=== PATIENT | female | born 1965 | race Caucasian/White ===

== ENCOUNTER 2021-10-07 10:12 | Outpatient (CLI) | payer MEDICARE, MEDICAID, SELFPAY ==
--- NOTE | 2021-10-07 16:46 | WPDPFTINT ---
PFT Procedure Performed PFT Procedure Performed Spirometry with Pre/Post Bronchodilator Plethysmography (Lung Vol) Diffusing Cap (DLCO) Flow Vol Loop PFT Interpretation This is a pulmonary function test with pre and post-bronchodilator spirometry, plethysmography and diffusing capacity. The test was performed and results interpreted in accordance with the 2019 and 2005 ATS/ERS Task Force guidelines respectively using the Global Lung Function Initiative-2012 reference equations. Patient demonstrated good effort and cooperation. Reproducibility criteria were met. The quality of the pre bronchodilator spirometry maneuver was Grade B and post bronchodilator spirometry maneuver was Grade A. Findings: Spirometry: There is decreased maximal expiratory airflow at all lung volumes with a concave expiratory flow tracing. The contour the inspiratory flow tracing is normal. The pre bronchodilator FVC is 3.48 L, 106% predicted. The pre bronchodilator FEV1 is 1.42 L, 55% predicted. The pre bronchodilator FEV1: FVC ratio is 41%. The post bronchodilator FVC is 3.43 L, representing a 1% decrease. The post bronchodilator FEV1 is 1.55 L, representing a 9% increase. The post bronchodilator FEV1: FVC ratio is 45%. Plethysmography: The total lung capacity 6.55 L, 129% predicted. The functional residual capacity is 4.16 L, 145% predicted. The residual volume is 3.07 L, 159% predicted. Diffusing capacity: The diffusing capacity unadjusted for hemoglobin and carboxyhemoglobin is 15.8, 72% predicted. The diffusing capacity adjusted for alveolar volume is 3.41, 76% predicted. Impression: There is a moderately severe obstructive abnormality without significant improvement after inhaling a single dose of albuterol. The increase in residual volume is consistent with air trapping from an obstructive abnormality. Hyperinflation is present is demonstrated by the increase in functional residual capacity and total lung capacity and is consistent with an obstructive abnormality. The diffusing capacity is normal. There are no prior studies for comparison
== END 2021-10-07 10:13 | disposition home or self-care (01) ==
LOC: ANHPFT 10:15
PROVIDERS: Visit Provider Internal Medicine Pulmonary Disease
DX: J44.9 Chronic obstructive pulmonary disease, unspecified (principal)
CPT/HCPCS: 94060; 94726; 94729

== ENCOUNTER 2022-02-14 10:54 | Outpatient (CLI) | payer MEDICARE, MEDICAID, SELFPAY ==
--- NOTE | ~2022-02-14 | CT_ITS ---
EXAMINATION: CT lung screening DATE: 02/14/2022 11:13 INDICATION: Personal history of tobacco dependence TECHNIQUE: Computed tomography (CT) of the chest was performed without intravenous contrast. The dose -length product was 107.12 mGy-cm. Automated exposure control and iterative reconstruction technique were employed. COMPARISON: None FINDINGS: Heart size is normal. No significant pleural or pericardial effusion. No thoracic lymphaden opathy. The upper abdomen is unremarkable. No endobronchial lesions. There are reticulonodular densit ies in the right middle lobe, possibly infectious or inflammatory. There is a 2-3 mm groundglass nodu le in the left upper lobe. Mild emphysema. No pneumothorax. No endobronchial lesions. Moderate thorac ic spondylosis. No focal lytic or blastic lesions. IMPRESSION: 1. Lung-RADS category 2: Benign appearance or behavior. Continue annual screening with noncontrast lo w-dose chest CT in 12 months. Reviewed, dictated and finalized at location A. IMPRESSION: 1. Lung-RADS category 2: Benign appearance or behavior. Continue annual screeni ng with noncontrast low-dose chest CT in 12 months.
== END 2022-02-14 10:55 | disposition home or self-care (01) ==
PROVIDERS: Visit Provider Internal Medicine Pulmonary Disease
DX: Z12.2 Encounter for screening for malignant neoplasm of respiratory organs (principal); Z87.891 Personal history of nicotine dependence
CPT/HCPCS: 71271

== ENCOUNTER 2025-03-28 12:50 | Inpatient (IN) | payer MEDICARE, SELFPAY ==
--- OUTSIDE RECORDS SUMMARY | 2025-02-25 09:30 | XMS_ITS | Encounter Summary ---
Author Organization [facility] Address [address] [place] [address] Care Team Providers Care Inventory And Pricing Associate Name Role Phone Elyse Pinto SANITATION WORKER CLEANING EQUIPMENT-EVENT PLANNING INTERN Primary Care Provide r Encounter Details Date Type Department Care Team (Late st Contact Info) Description 02/25/2025 9:30 AM CDT Hospital Encounter [facility] Cancer Care - Radiation Oncology [address] [place] [address] Jackson Mcghee MD [address] [place], [place] [id number] Social History Tobacco Use Types Packs/Day Years Used Date Smoking Tobacco: Former Cigarettes Q uit: 2016 Smokeless Tobacco: Never Alcohol Use Standard Drinks/Week Comments Not Currently 0 (1 standard drink = 0.6 oz pur e alcohol) AUDIT-C Answer Date Recorded Frequency of Alcohol Consumption Not on file 12/05/2024 Q2: How many drinks containi ng alcohol do you have on a typical day when you are drinking? Patient does not drink Q3: How often do you have si x or more drinks on one occasion? Never 12/05/2024 Overall Financial Resource Strain (CARDIA) Lindae r Date Recorded How hard is it for you to pa y for the very basics like food, housing, medical care, and heating? Somewhat hard 12/05/2024 PHQ-2 Answer Date Recorded Patient Health Questionnaire-2 Score 0 03/18/2025 [facility] of Occupat ional Health - Occupational Stress Questionnaire Answer Date Recorded Do you feel stress - tense, restless, nervous, or anxious, or unable to sleep at night because your mind is troubled all the time - these days? Only a little 12/05/2024 Hunger Vital Sign Answer Date Recorded Within the past 12 months, y ou worried that your food would run out before you got the money to buy more. Never true 12/06/19 25 Within the past 12 months, t he food you bought just didn't last and you didn't have money to get more. Never true 12/05/2024 PRAPARE - Transportation Answer Date Re corded In the past 12 months, has l ack of transportation kept you from medical appointments or from getting medications? No 11/08 In the past 12 months, has l ack of transportation kept you from meetings, work, or from getting things needed for daily living? No 12/05/2024 Housing Stability Vital Sign Answer Wesly e Recorded In the last 12 months, was t here a time when you were not able to pay the mortgage or rent on time? No 12/05/2024 In the past 12 months, how m any times have you moved where you were living? 1 12/05/2024 At any time in the past 12 m [facility], were you homeless or living in a jail (including now)? No 12/05/2024 Comments No Sex and Gender Information Value Date Recorded Sex Assigned at Not on file Legal Sex Female 11:39 AM CDT Gender Identity Not on file Sexual Orientation Not on file documented as of this encounter Functional Status * Is person deaf or have serious hearing difficulty? Answer Date of Assessment Author No 12/05/2024 5:31 PM CDT Vicky Souza LPN * Is person blind or have serious difficulty seeing? Answer Date of Assessment Author No 12/05/2024 5:31 PM CDT Vicky Souza LPN * Does person have serious difficulty walking/climbing stairs? Answer Date of Assessment Author No 12/05/2024 5:31 PM CDT Vicky Souza LPN * Does person have difficulty dressing/bathing? Answer Date of Assessment Author No 12/05/2024 5:31 PM CDT Vicky Souza LPN * Does person have difficulty doing errands alone? Answer Date of Assessment Author No 12/05/2024 5:31 PM CDT Vicky Souza LPN * Over the past 2 weeks, how often have you been bothered by any of the following problems? Question Answer Date of Assessment Author Little interest or pleasure in doing things Not at all 03/18/2025 12:28 PM CDT Romelia Pineda RN Feeling down, depressed, or hopeless Not at all 03/18/2025 12:28 PM CDT Romelia Pineda RN Patient Health Questionnaire -2 Score 0 03/18/2025 12:28 PM CDT Romelia Pineda RN documented as of this encounter Mental Status * Does person have difficulty concentrating/remembering/making decisions? Answer Entry Date Author No 12/05/2024 5:31 PM CDT Vicky Souza LPN documented in this encounter Plan of Treatment Upcoming Encounters Date Type Department Care Team (Late st Contact Info) Description 03/30/2025 9:30 AM CDT Appointment [facility] - PET Scan [address] [place] [address] [address] [place] [address] Earlene Mckeon MD [address] [place], [place] [phone] 04/02/2025 9:30 AM CDT Clinical Support [facility] - CRM DYNAMICS DEVELOPER [address] [facility] [address] [place] [phone] [place] [address] [place] [address] 04/02/2025 10:20 AM CDT Appointment [facility] [address] [facility] [address] [place] [address] Earlene Mckeon MD [address] [address] documented as of this encounter Visit Diagnoses Not on filedocumented in this encounter Care Teams Inventory And Pricing Associate Relationship Specialty Start Date End Date Elyse Pinto APRN-KHOA [address] [id number] PCP - General Nurse Practitioner 04/17/24 documented as of this encounter
--- OUTSIDE RECORDS SUMMARY | 2025-02-25 09:30 | XMS_ITS | Encounter Summary ---
Author Organization [facility] Address [address] [place] [address] Care Team Providers Care High School Music Teacher Name Role Phone Elyse Pinto VETERINARIAN EPIDEMIOLOGIST-LONG TERM Primary Care Provide r Encounter Details Date Type Department Care Team (Late st Contact Info) Description 02/25/2025 9:30 AM CDT Hospital Encounter [facility] Cancer Care - Radiation Oncology [address] [place] [address] Jackson Mcghee MD [address] [place], [place] [id number] Social History Tobacco Use Types Packs/Day Years [...] Recorded Patient Health Questionnaire-2 Score 0 03/18/2025 [facility] [place] of Occupat ional Health - Occupational Stress [...] any time in the past 12 m [facility], were you homeless or living in a retirement (including now)? No 12/05/2024 Comments No Sex [...] Info) Description 03/30/2025 9:30 AM CDT Appointment [facility] [place] [place] - PET Scan [address] [place] [address] [address] [place] [address] Earlene Mckeon MD [address] [place], [place] [id number] 04/02/2025 9:30 AM CDT Clinical Support [facility] - COUNTER PROFESSIONAL [address] [facility] [address] [place] [phone] [place] [address] [place] [address] 04/02/2025 10:20 AM CDT Appointment [facility] [address] [facility] [address] [place] [address] Earlene Mckeon MD [address] [address] documented as of this encounter Visit Diagnoses Not on filedocumented in this encounter Care Teams High School Music Teacher Relationship Specialty Start Date End Date Elyse Pinto APRN-KHOA [address] [id number] PCP - General Nurse Practitioner 04/17/24 documented as of this encounter
[2025-03-28] VITALS (46 sets, daily range): BP systolic 86–123; BP diastolic 49–91; PULSE 97–139; RESP 17–46; TEMP 36.7; O2SAT 92–100
--- NOTE | ~2025-03-28 | CT_ITS ---
CTA NECK, CTA HEAD Clinical History: CVA Comparison: Noncontrast CT head today TECHNIQUE: Helical images thoracic inlet to vertex 100 mL Omnipaque 350 Coronal, sagittal reformats. Multi planar MIPS CT images acquired with automatic exposure control for dose reduction DLP: 910 mGy-cm Findings: NASCET Criteria utilized CTA NECK Great vessel origins: No stenosis. CCAs: No stenosis. Cervical ICAs: No stenosis. Mild bulb calcification. Vertebral Arteries: Patent. Left side arises directly from arch. Lung Apices: Clear. Thyroid: Unremarkable. Nodes: No enlarged nodes. Bones: Lytic lesion C2, C5. Lytic lesion right scapula with large soft tissue component. CTA HEAD: Aneurysms: None. Intracranial ICAs: Cavernous segments calcifications but patent without definite stenosis. ACAs and their distal branches: Patent, unremarkable. A-Comm: Identified. Patent, unremarkable. MCAs and their distal branches: Patent, unremarkable. Basilar artery: Patent, unremarkable. public health dentist and their distal branches: Patent, unremarkable. P-Comms: Left side present. IMPRESSION: CTA NECK: 1. No ICA stenosis or other acute arterial abnormality. 2. Lytic bony metastatic disease C2, C5. 3. Lytic bony metastatic disease right scapula with large associated soft tissue component. CTA HEAD: 1. No large vessel arterial occlusive disease or other acute arterial abnormality. Reviewed, dictated and finalized at location R. IMPRESSION: CTA NECK: 1. No ICA stenosis or other acute arterial abnormality. 2. Lytic bony metastatic disease C2, C5. 3. Lytic bony metastatic disease right scapula with large associated soft tiss ue component. CTA HEAD: 1. No large vessel arterial occlusive disease or other acute arterial abnormal ity.
--- NOTE | ~2025-03-28 | MR_ITS ---
EXAMINATION: MR brain/brain stem wo con DATE: 04/26/2025 12:40 INDICATION: Headache. TECHNIQUE: Magnetic resonance imaging (MRI) of the brain and brainstem was performed without intravenous contrast. COMPARISON: Brain MRI 03/30/2025, head CT 04/23/2025 FINDINGS: There are scattered areas of nonspecific increased T2-weighted signal intensity in the cerebral white matter and peg. There is no intracranial hemorrhage, acute infarction, or abnormal intracranial mass lesion. The ventricles are normal in size. There is mild mucosal thickening in the paranasal sinuses. The orbits are normal. There is a trace right mastoid effusion. IMPRESSION: 1. Stable mild nonspecific cerebral white matter disease and pontine disease, which likely represents chronic small vessel ischemic disease. Reviewed, dictated and finalized at location E. IMPRESSION: 1. Stable mild nonspecific cerebral white matter disease and pontine disease, w hich likely represents chronic small vessel ischemic disease.
--- NOTE | ~2025-03-28 | XR_ITS ---
Examination: XR chest 1V portable Clinical History: HTN Comparison: X-ray 03/28/2025 Technique: Portable AP Findings: Right chest Mediport. Heart size normal. Developing interstitial markings right lung. No acute bony abnormality. IMPRESSION: 1. Developing interstitial pulmonary edema and/or pneumonitis right lung. 2. Early airspace disease lung base not excluded. Reviewed, dictated and finalized at location R.
--- NOTE | ~2025-03-28 | MR_ITS ---
EXAMINATION: MR brain/brain stem wo/w con DATE: 03/30/2025 15:18 INDICATION: Stroke TECHNIQUE: Magnetic resonance imaging (MRI) of the brain and brainstem was performed without and with 12 mL Multihance intravenous contrast. Sequences included sagittal and axial T1-weighted SE, axial diffusion-weighted FS SE, axial T2*-weighted GRE, axial T2-weighted FLAIR, and axial T2-weighted FSE. Postcontrast axial and coronal T1-weighted SE was obtained. Apparent diffusion coefficient (ADC) maps were created. COMPARISON: Head CT and CT angiogram dated 03/28/2025 FINDINGS: There are no areas of restricted diffusion to suggest acute infarction. No intracranial hemorrhage or abnormal intracranial mass lesion. There are scattered areas of nonspecific increased T2-weighted signal intensity in the cerebral white matter, predominantly involving the deep and periventricular whi te matter. There are no intraparenchymal signal abnormalities seen on the other pulse sequences. The ventricles are symmetric and normal in size. There are no abnormal extra-axial fluid collections. Flow voids are seen in the cerebral arteries on the T2-weighted sequences consistent with their expected patency. Visualized orbits and soft tissues are unremarkable. There are no areas of abnormal enhancement on the post contrast images. IMPRESSION: 1. Scattered ossific white matter T2 hyperintensity consistent with chronic small vessel ischemic disease. No acute intracranial process. Reviewed, dictated and finalized at location A. IMPRESSION: 1. Scattered ossific white matter T2 hyperintensity consistent with chronic sma ll vessel ischemic disease. No acute intracranial process.
--- NOTE | ~2025-03-28 | CT_ITS ---
EXAMINATION: CT brain wo con, 03/28/2025 17:20 CDT HISTORY: WEAKNESS, CONFUSION COMPARISON: No comparisons available. Technique: Axial images obtained of the brain without contrast. One or more of the following dose reduction techniques were used: automated exposure control, adjustment of the mA and/or kV according to patient size, use of iterative reconstruction technique. Findings: Age-indeterminate focus of ischemia noted in the left posterior frontal subcortical white matter, no acute hemorrhage. No midline shift or mass effect. No extra-axial fluid collections. Mastoid air cells unremarkable. Sinuses and orbits unremarkable. No acute fracture. No significant facial or scalp soft tissue swelling evident. No radiopaque foreign body is seen. Impression: Age-indeterminate focus of left frontal subcortical ischemia. No hemorrhage. MRI recommended Reviewed, dictated and finalized at location A. Impression: Age-indeterminate focus of left frontal subcortical ischemia. No hemorrhage. MR I recommended
--- NOTE | ~2025-03-28 | XR_ITS ---
Examination: XR chest 1V portable Clinical History: no blood return check for placement Comparison: 04/11/2025 Technique: Portable AP Findings: Right chest Mediport. Heart size normal. Lungs clear. No acute bony abnormality. IMPRESSION: 1. No acute cardiopulmonary findings given portable technique. 2. Right Mediport unchanged in position. Reviewed, dictated and finalized at location R.
--- NOTE | ~2025-03-28 | XR_ITS ---
EXAMINATION: XR chest 1V portable COMPARISON: No comparisons available. HISTORY: fever FINDINGS: The lungs are clear, no effusion. No pneumothorax. Heart is normal size. Mediastinal and hilar contours are within normal limits. Bony thorax no acute abnormality. Miscellaneous: None Impression: No acute cardiopulmonary abnormality. Reviewed, dictated and finalized at location P. Impression: No acute cardiopulmonary abnormality.
--- NOTE | ~2025-03-28 | XR_ITS ---
EXAMINATION: XR shoulder RT min 2V, 04/11/2025 15:15 CDT HISTORY: pain COMPARISON: No comparisons available. Findings: No acute fracture or malalignment. No significant degenerative changes. Soft tissues unremarkable. Impression: No acute fracture or malalignment. Reviewed, dictated and finalized at location P. Impression: No acute fracture or malalignment.
--- NOTE | ~2025-03-28 | CT_ITS ---
COMPARISON: [None.] TECHNIQUE: Axial images of the thorax, abdomen and pelvis were obtained without infusion of intravenous contrast, which limits evaluation. FINDINGS: THORAX: [The lungs are clear. There is a 5 mm pulmonary nodule within the superior segment of the left lower lobe measured on axial image 53 5.8 mm pulmonary nodule in the posterior left lower lobe measured on axial image 58. There is a 8 x 7 mm pulmonary nodule in the anterior medial right upper lobe measured on axial image 56 there is a 5 mm pulmonary nodule within the right middle lobe measuring on axial image 66. There is a 12 x 9 mm pulmonary nodule at the right lung base measured on axial image 69. There is atelectasis of the right lower lobes. Small right pleural effusion are noted. There is a large precarinal lymph node measuring 16 mm. Small pericardial effusion is noted. Heart size is normal. ABDOMEN AND PELVIS: [The liver parenchyma is multiple liver masses are noted concerning for malignancy. Largest measures 6.6 cm.[The gallbladder is normal.] [The pancreas is unremarkable. There is no peripancreatic induration.] [The spleen is normal in size. The adrenal glands are unremarkable.] [The kidneys are unremarkable. There is no hydronephrosis.] [The stomach and bowel loops are unremarkable.] The bladder is normal. [ ] BONES: [The bones are intact.] IMPRESSION: 1. [Multiple pulmonary nodules are noted in the lungs bilaterally measuring up to 12 mm. There is a enlarged precarinal lymph node measuring 16 mm. This may represent metastases. Multiple liver masses are noted suggestive of malignancy. Reviewed, dictated and finalized at location S.
--- NOTE | ~2025-03-28 | CT_ITS ---
EXAMINATION: CT brain wo negra, 04/23/2025 13:58 CDT HISTORY: ams COMPARISON: No comparisons available. Technique: Axial images obtained of the brain without contrast. One or more of the following dose reduction techniques were used: automated exposure control, adjustment of the mA and/or kV according to patient size, use of iterative reconstruction technique. Findings: No acute infarct or parenchymal hemorrhage. No abnormal mass or mass effect. No midline shift. No extra-axial fluid collections. No hydrocephalus. Mastoid air cells unremarkable. Sinuses and orbits unremarkable. No acute fracture. No significant facial or scalp soft tissue swelling evident. No radiopaque foreign body is seen. Impression: 1.No acute intracranial abnormality. Reviewed, dictated and finalized at location P. Impression: 1.No acute intracranial abnormality.
--- NOTE | ~2025-03-28 | XR_ITS ---
XR chest 2V HOSTORY: leukocytosis INCREASED WEAKNESS COMPARISON:[ None] FINDINGS: Frontal and lateral views of the chest were obtained multifocal airspace opacities are noted bilaterally.. [ ] [The heart size is normal in size.] [Pulmonary vasculature is unremarkable.] [ ] [Osseous structures are intact.] IMPRESSION: Multifocal airspace opacities are noted bilaterally. Reviewed, dictated and finalized at location S.
--- NOTE | ~2025-03-28 | XR_ITS ---
EXAMINATION: XR chest 1V portable COMPARISON: No comparisons available. HISTORY: pneumonia FINDINGS: Scattered bilateral small infiltrates. No pneumothorax. Heart is normal size. Mediastinal and hilar contours are within normal limits. Bony thorax no acute abnormality. Miscellaneous: Right central line in the SVC, right PICC line in the SVC. Impression: Bilateral pneumonia. The findings appear slightly progressed compared to the previous study Reviewed, dictated and finalized at location P. Impression: Bilateral pneumonia. The findings appear slightly progressed compared to the pr evious study
--- NOTE | ~2025-03-28 | XR_ITS ---
XR chest 1V portable INDICATION:SOB . REFERENCE: None FINDINGS: A single AP of the chest demonstrates normal heart size. Right Port-A-Cath terminates in the right atrium. There is small right pleural effusion with associated atelectasis. There is interstitial groundglass opacities bilaterally. There is no evidence of pneumothorax or pleural effusion. IMPRESSION: Syncytial groundglass opacity bilaterally with right pleural effusion suggestive of pulmonary edema. Reviewed, dictated and finalized at location S. IMPRESSION: Syncytial groundglass opacity bilaterally with right pleural effusion suggestiv e of pulmonary edema.
--- NOTE | ~2025-03-28 | XR_ITS ---
EXAMINATION: XR chest 1V portable COMPARISON: No comparisons available. HISTORY: Worsening leukocytosis with lethargy and cough. FINDINGS: Mild pulmonary venous congestion. Small basilar infiltrates and right pleural effusion. No pneumothorax. Mild cardiomegaly. Mediastinal and hilar contours are within normal limits. Bony thorax no acute abnormality. Miscellaneous: Right Mediport in the SVC. Impression: CHF. Superimposed bronchopneumonia. The findings appear slightly progressed compared to the previous study Reviewed, dictated and finalized at location P. Impression: CHF. Superimposed bronchopneumonia. The findings appear slightly progressed com pared to the previous study
--- NOTE | ~2025-03-28 | XR_ITS ---
EXAMINATION: XR chest 1V portable COMPARISON: No comparisons available. HISTORY: WEAKNESS FINDINGS: The lungs are clear, no effusion. No pneumothorax. Heart is normal size. Mediastinal and hilar contours are within normal limits. Bony thorax no acute abnormality. Miscellaneous: Right Mediport terminates in the SVC Impression: No acute cardiopulmonary abnormality. Reviewed, dictated and finalized at location A. Impression: No acute cardiopulmonary abnormality.
--- NOTE | ~2025-03-28 | US_ITS ---
EXAMINATION:US venous doppler LE BI INDICATION:Evaluate for deep venous thrombosis TECHNIQUE: Multiple grayscale, color flow and Doppler images of the right and left lower extremity deep venous systems were obtained and reviewed. COMPARISON:No prior studies for comparison. FINDINGS: The common femoral, superficial femoral and popliteal veins demonstrate normal respiratory variation, augmentation and compressibility. Color flow is also seen within the posterior tibial, peroneal, greater saphenous and profunda veins. IMPRESSION: 1: No lower extremity deep venous thrombosis. Reviewed, dictated and finalized at location O.
--- OUTSIDE RECORDS SUMMARY | 2025-03-28 12:53 | XMS_ITS | Clinical Summary ---
Author Organization [facility] Address [address] [place] [address] Care Team Providers Care Welder Pipe Making Name Role Phone Eylse Pinto DOOR TO DOOR SALESPERSON-ARMATURE AND ROTOR WINDER Primary Care Provide r Source Comments [facility],non-owned Affiliates and Associated Physician Practices is amultiple site organization consisting of ambulatory clinics and hospital sitesin [place], [place], [place] and [place]. This disclosure is being madepursuant to the Care Everywhere program and may not contain all information available regarding this patient. Last updated 18.[facility] Allergies Active Allergy Reactions Criticality Noted Date Comments Bupropion Psychiatric Medium 09/19/2021 Suicidal thoughts Mushroom Extract Complex Anaphylaxis High 12/05/2024 Medications * Be aware that medications may not be up to date on this document. Alwaysverify current medications with the patient. albuterol HFA (Proventil; Ventolin; Proair) 108 (90 Base) MCG/ACT inhaler Inhale 2 (two) puffs by mouth every 4 hours as needed 024 Active albuterol (Proventil;Ventolin ) (2.5 MG/3ML) 0.083% nebulizer solution INHALE THE CONTENTS OF 1 VIAL VIA NEBULIZER EVERY 4-6 HRS NEEDED FOR SHORTNESS OF BREATH/WHEEZING 024 Active atorvastatin (Lipitor) 40 MG tablet Take 1 (one) tablet by mouth once daily 024 Active Symbicort 160-4.5 MCG/ACT inhaler Inhale 2 (two) puffs by mouth 2 times daily Active clonazePAM (KlonoPIN) 1 MG tablet Take 1 (one) tablet by mouth 3 times daily Active montelukast (Singulair) 10 MG tablet Take 1 (one) tablet by mouth every evening Active triamterene-hydroCH LOROthiazide (Dyazide) 37.5-25 MG capsule Take 1 (one) capsule by mouth once daily Active verapamil SR 24hr (Verelan) 180 MG capsule Take 1 (one) capsule by mouth once daily Active Multiple Vitamins-Minerals (ZINC PO) Active vitamin D, ergocalciferol, (Drisdol) 1.25 MG (80567 UT) capsule Take 1 (one) capsule by mouth every 30 days Active ondansetron (Zofran) 8 MG tabletIndications:P rimary cancer of vulva with widespread metastatic disease (HCC),Lung nodule,Breast lesion,Vulvar cancer (HCC) Take 1 (one) tablet by mouth every 8 hours as needed for Nausea/Vomiting with chemotherapy 45 tablet 2 Active lidocaine-prilocain e (Emla) 2.5-2.5 % creamIndications:Pr imary cancer of vulva with widespread metastatic disease (HCC),Lung nodule,Breast lesion,Vulvar cancer (HCC) Please apply sparingly to port a cath 30-60 minutes prior to labs and or chemotherapy. 90 g 2 Active loratadine (Claritin) 10 MG tablet Take 1 (one) tablet by mouth once daily 90 tablet 4 Active Sennosides (Senna) 8.6 MG Take 2 tablets by mouth 2 times daily as needed 60 capsule 5 Active ciprofloxacin (Cipro) 500 MG tabletIndications:n eutopenic from chemotherapy Take 1 (one) tablet by mouth 2 times daily Reasons: neutopenic from chemotherapy 14 tablet Active Additional Information Patient not taking.Reason: Provider adjusted, Reported on 02/25/2025 oxyCODONE, immediate release, (Roxicodone) 5 MG tabletIndications:V ulvar cancer, carcinoma (HCC) Take 1 (one) tablet by mouth every 6 hours as needed for Pain 30 tablet 024 Active Additional Information Patient not taking.Reason: Patient adjusted, Informant: Other, Reported on 02/04/2025 methylPREDNISolone (Medrol Dosepak) 4 MG tabletIndications:P rimary cancer of vulva with widespread metastatic disease (HCC),Itching,Vulva r cancer (HCC),Lung nodule Take by mouth as directed Take as directed by mouth per package instructions. 21 tablet Active Additional Information Patient not taking.Reason: Other (therapy complete), Reported on 02/25/2025 hydrOXYzine HCl (Atarax) 25 MG tabletIndications:I tching TAKE 1 (ONE) TABLET BY MOUTH 4 TIMES DAILY NEEDED FOR ITCHING 90 tablet 025 Active dexAMETHasone (Decadron) 4 MG tablet 08/07/24: TAKE 5 TABS ONCE 08/08/24: TAKE 4 TABS ONCE 08/09/24: TAKE 3 TABS ONCE 08/10/24: TAKE 2 TABS ONCE 08/11/24: TAKE 5 TABS 12 HOURS AND 6 HOURS BEFORE CHEMOTHERAPY 08/13/24-08/17/24: TAKE 1 TAB TWICE A DAY WITH ALL FUTURE CYCLES OF CHEMOTHERAPY: TAKE 5 TABS 12 HOURS AND 6 HOURS BEFORE CHEMOTHERAPY TAKE 1 TAB TWICE A DAY DAYS 2-6 OF CHEMOTHERAPY CYCLE 100 tablet 025 Active dexAMETHasone (Decadron) 4 MG tabletIndications:D rug-Induced Hypersensitivity Reaction,Pain due to Malignant Neoplastic Disease Take 5 (five) tablets 12 hours before chemotherapy (20mg). Then 6 hours before chemotherapy take the remaining 5 (five) tablets (20mg). Reasons: Cancer Pain, Hypersensitivity Reaction caused by a Drug 10 tablet 5 025 Active dicyclomine (Bentyl) 10 MG capsuleIndications: Vulvar cancer, carcinoma (HCC),Abdominal cramping,On antineoplastic chemotherapy Take 1 (one) capsule by mouth 4 times daily Take as needed for abdominal cramping. 360 capsule 1 025 Active magnesium Cl-Calcium Carbonate (Slow-Mag) 71.5 mg9 MG tablet Take 1 (one) tablet by mouth once daily 90 tablet 3 025 Active potassium chloride ER (K-TAB) 20 MEQ tablet Take 2 (two) tablets by mouth once daily 180 tablet 3 025 Active loperamide (Imodium) 1 MG/5ML solution Take 5 mL by mouth every 3 hours as needed for Diarrhea Activ e cyanocobalamin (Vitamin B-12) 1000 MCG tablet Take 1 (one) tablet by mouth once daily Activ e Zinc Sulfate (Zinc 15) 66 MG Take 1 tablet by mouth once daily Active vitamin D3 (Cholecalciferol) 25 MCG (1000 UNITS) tablet Take 1 (one) tablet by mouth once daily Activ e folic acid (Folvite) 1 MG tablet Take 1 (one) tablet by mouth once daily 90 tablet 025 Active prochlorperazine (Compazine) 10 MG tablet Take 1 (one) tablet by mouth every 8 hours as needed for Nausea/Vomiting 30 tablet 025 Active DULoxetine (Cymbalta) 60 MG capsuleIndications: Peripheral Neuropathy Take 1 (one) capsule by mouth once daily . 90 day supply Reasons: Peripheral Nerve Disease 90 capsule 4 025 Active DULoxetine (Cymbalta) 60 MG capsuleIndications: Peripheral Neuropathy Take 1 (one) capsule by mouth once daily . 90 day supply Reasons: Peripheral Nerve Disease 90 capsule 4 025 2024 Disconti nued(Reo rder) Active Problems Problem Noted Date Diagnosed Date Thrombocytopenia 12/05/2024 Primary cancer of vulva with widespread metastat ic disease 09/25/2024 Vulvar cancer, carcinoma 05/02/2024 Encounters Date Type Department Care Team Description 03/18/2025 10:57 AM CDT - 03/18/2025 11:59 PM T Hospital Encounter [facility] [address] [place] [address] Earlene Mckeon MD Discharge Disposition: Home or Self Care 03/18/2025 Orders Only [facility] [address] [facility] [address] [place] [address] Earlene Mckeon MD 03/13/2025 Refill [facility] [address] [facility] [address] [facility] [address] [place] [address] Earlene Mckeon MD MEDICATION REFILL 03/02/2025 Refill [facility] [address] [place] [address] Earlene Mckeon MD Refill Request 02/25/2025 10:10 AM CDT - 02/25/2025 11:59 PM CDT Hospital Encounter [facility] [address] [place] [address] Earlene Mckeon MD Discharge Disposition: Home or Self Care 02/25/2025 9:30 AM CDT Hospital Encounter [facility] - Radiation Oncology [address] [place] [address] Jackson Mcghee MD 02/25/2025 9:30 AM CDT Office Visit [facility] - Rad/Onc [address] [place] [address] Jackson Mcghee MD 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) (Primary Dx); Vulvar cancer, carcinoma (HCC) 02/25/2025 Orders Only [facility] [address] [facility] [address] [place] [address] Dom Lopez MD 02/25/2025 Travel 02/11/2025 Travel 02/04/2025 9:58 AM CDT - 02/04/2025 11:59 PM CDT Hospital Encounter [facility] [address] [address] Earlene Mckeon MD Discharge Disposition: Home or Self Care 02/04/2025 Travel 01/30/2025 Orders Only [facility] [address] [facility] [address] [place] [phone] Earlene Mckeon MD 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) ; Maintenance chemotherapy; History of therapeutic radiation; Lung nodule; Vulvar cancer, carcinoma (HCC) 01/29/2025 10:00 AM CDT - 01/29/2025 11:59 PM CDT Hospital Encounter [facility] [address] [address] Earlene Mckeon MD Discharge Disposition: Home or Self Care 01/29/2025 9:30 AM CDT Clinical Support [facility] [address] [place] [address] [place], [place] [address] [address] [place] [address] Earlene Mckeon MD 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) ; Maintenance chemotherapy 01/29/2025 Orders Only [facility] [address] [place], [place] [address] [address] [place] [address] Earlene Mckeon MD 01/29/2025 Travel 01/21/2025 Refill [facility] [address] [place] [address] [address] [place] [address] Earlene Mckeon MD Refill Request 01/14/2025 9:52 AM CDT - 01/14/2025 11:59 PM CDT Hospital Encounter [facility] [address] [facility] [address] [place] [address] Earlene Mckeon MD Discharge Disposition: Home or Self Care 01/14/2025 Orders Only [facility] [address] [place] [address] [place] [phone] Jackson Ramirez MD 12/10/2024 8:30 AM CDT - 01/11/2025 11:59 PM CDT Hospital Encounter [facility] Cancer Care - Radiation Oncology [address] [place] [address] Jackson Mcghee MD Discharge Disposition: Home or Self Care from Last 3 Months Family History Medical History Relation Name Comments Cancer Mother Cancer Sister 1 Relation Name Status Comments Mother Sister 1 Sister 2 Alive Social History Tobacco Use Types Packs/Day Years Used Date Smoking Tobacco: Former Cigarettes Q uit: 2016 Smokeless Tobacco: Never Tobacco Cessation:Counseling Given: Not Answered Alcohol Use Standard Drinks/Week Comments Not Currently [...] Never 12/05/2024 Overall Financial Resource Strain (CARDIA) Answe r Date Recorded How hard is it for you to pa y for the very basics like food, housing, medical care, and heating? Somewhat hard 12/05/2024 PHQ-2 Answer Date Recorded Patient Health Questionnaire-2 Score 0 03/18/2025 [facility] - Occupational Stress [...] time in the past 12 m [facility], were you homeless or living in a usp (including now)? No 12/05/2024 Comments No Sex and Gender Information Value Date Recorded Sex Assigned at Not on file Legal Sex Female 11:39 AM CDT Gender Identity Not on file Sexual Orientation Not on file Last Filed Vital Signs Vital Sign Reading Time Taken Comments Blood Pressure 108/60 03/18/2025 12:28 PM CDT Pulse 67 03/18/2025 12:28 PM CDT Temperature 36.8 C (98.2 F) 03/18/2025 12:28 PM CDT Respiratory Rate 16 03/18/2025 12:28 PM CDT Oxygen Saturation 99% 01/29/2025 10:26 AM CDT Inhaled Oxygen Concentration - - Weight 62.2 kg (137 lb 3.2 oz) 02/25/2025 10:14 AM CDT Height 162.6 cm (5' 4) 02/25/2025 10:14 AM CDT Body Mass Index 23.55 02/25/2025 10:14 AM CDT Plan of Treatment Upcoming Encounters Date Type Department Care Team (Late st Contact Info) Description 03/30/2025 9:[address] [facility] - PET Scan [address] [place] [address] [address] [place] [address] Earlene Mckeon MD [address] [facility] [address] [place] [address] 04/02/2025 9:30 AM CDT Clinical Support [facility] [address] [facility] [address] [place] [phone] Earlene Mckeon MD [address] [place] [address] [address] 04/02/2025 10:20 AM CDT Appointment [facility] [address] [facility] [address] [place] [address] Earlene Mckeon MD [address] [place] [address] [address] Health Maintenance Due Date Last Done Comments COLOGUARD (AGES 45-75) - COLON CA SCREENING 1963 COLON MONITORING 1963 COLONOSCOPY - COLON CA SCREENING 1963 CT COLONOGRAPHY - COLON CA SCREENING 1963 Colorectal Cancer Screening 1963 FIT - COLON CA SCREENING 1963 FLEX SIG - COLON CA SCREENING 1963 HIV SCREENING 11/28/1978 HEPATITIS C SCREENING 11/24/1981 DTAP/TDAP/TD VACCINES (1 - Tdap) 11/28/1982 PNEUMOCOCCAL VACCINE 50+ (1 of 2 - PCV) 11/28/1982 ZOSTER VACCINE (1 of 2) 11/28/1982 COVID-19 VACCINE (3 - Pfizer risk series) 12/01/2020 11/03/2020, 10/11/2020 Respiratory Syncytial Virus (RSV) Vaccine Pt: or over 60 yrs (1 - Risk 60-74 years 1-dose series) 2023 MEDICARE AWV CALENDAR YEAR 2024 INFLUENZA VACCINE (#1) 2025 , 08/14/2023, 05/26/2022, Additional history exists MAMMOGRAM 07/11/2026 07/11/2024, 07/11/2024 DEPRESSION SCREENING Completed 07/10/2024, 05/20/20 24 HEPATITIS B VACCINE Aged Out No longe r eligible based on patient's age to complete this topic HIB VACCINE Aged Out No longer eligi ble based on patient's age to complete this topic HPV VACCINE Aged Out No longer eligi ble based on patient's age to complete this topic MENINGOCOCCAL (Group B) VACCINE SHARED DECISION-MAKING Aged Out No longer eligible based on patient's age to complete this topic MENINGOCOCCAL GROUPS A/C/Y/W VACCINE Aged Out No longer eligible based on patient's age to complete this topic Procedures Procedure Name Priority Date/Time Associated Diagnosis Comments DIFFERENTIAL MANUAL STAT 03/18/2025 1 2:18 PM CDT Vulvar cancer, carcinoma (HCC) T4 FREE TASHA 03/18/2025 12:18 PM CDT Vulvar cancer, carcinoma (HCC) TSH TASHA 03/18/2025 12:18 PM CDT Vulvar cancer, carcinoma (HCC) CORTISOL BLOOD TASHA 03/18/2025 12:18 PM CDT Vulvar cancer, carcinoma (HCC) MAGNESIUM BLOOD TASHA 03/18/2025 12:18 PM CDT Vulvar cancer, carcinoma (HCC) COMPREHENSIVE METABOLIC PANEL TASHA 03/18/2025 12:18 PM CDT Vulvar cancer, carcinoma (HCC) CBC W AUTO DIFFERENTIAL STAT 03/18/2025 12:18 PM CDT Vulvar cancer, carcinoma (HCC) DIFFERENTIAL MANUAL STAT 02/25/2025 1 1:13 AM CDT Vulvar cancer, carcinoma (HCC) T4 FREE TASHA 02/25/2025 11:13 AM CDT Vulvar cancer, carcinoma (HCC) TSH TASHA 02/25/2025 11:13 AM CDT Vulvar cancer, carcinoma (HCC) CORTISOL BLOOD TASHA 02/25/2025 11:13 AM CDT Vulvar cancer, carcinoma (HCC) MAGNESIUM BLOOD TASHA 02/25/2025 11:13 AM CDT Vulvar cancer, carcinoma (HCC) COMPREHENSIVE METABOLIC PANEL TASHA 02/25/2025 11:13 AM CDT Vulvar cancer, carcinoma (HCC) CBC W AUTO DIFFERENTIAL STAT 02/25/2025 11:13 AM CDT Vulvar cancer, carcinoma (HCC) T4 FREE TASHA 01/29/2025 10:13 AM CDT Vulvar cancer, carcinoma (HCC) TSH TASHA 01/29/2025 10:13 AM CDT Vulvar cancer, carcinoma (HCC) CORTISOL BLOOD TASHA 01/29/2025 10:13 AM CDT Vulvar cancer, carcinoma (HCC) MAGNESIUM BLOOD TASHA 01/29/2025 10:13 AM CDT Vulvar cancer, carcinoma (HCC) COMPREHENSIVE METABOLIC PANEL TASHA 01/29/2025 10:13 AM CDT Vulvar cancer, carcinoma (HCC) CBC W AUTO DIFFERENTIAL STAT 01/29/2025 10:13 AM CDT Vulvar cancer, carcinoma (HCC) DIFFERENTIAL MANUAL STAT 01/14/2025 1 0:11 AM CDT Vulvar cancer, carcinoma (HCC) T4 FREE TASHA 01/14/2025 10:11 AM CDT Vulvar cancer, carcinoma (HCC) TSH TASHA 01/14/2025 10:11 AM CDT Vulvar cancer, carcinoma (HCC) CORTISOL BLOOD TASHA 01/14/2025 10:11 AM CDT Vulvar cancer, carcinoma (HCC) MAGNESIUM BLOOD TASHA 01/14/2025 10:11 AM CDT Vulvar cancer, carcinoma (HCC) COMPREHENSIVE METABOLIC PANEL TASHA 01/14/2025 10:11 AM CDT Vulvar cancer, carcinoma (HCC) CBC W AUTO DIFFERENTIAL STAT 01/14/2025 10:11 AM CDT Vulvar cancer, carcinoma (HCC) from Last 3 Months Results * (ABNORMAL) DIFFERENTIAL MANUAL (03/18/2025 12:18 PM CDT) Only the most recent of3 resultswithin the time period is included. Neutrophil % 90(H) 41 - 74 % 03/18/2025 12:49 PM CDT [facility] Lymphocyte % 4(L) 17 - 47 % 03/18/2025 12:49 PM CDT [facility] Monocyte % 2(L) 3 - 11 % 03/18/2025 12:49 PM CDT [facility] Metamyelocyte % 1(H) 0% % 12:49 PM CDT [facility] Myelocyte % 3(H) 0% % 03/18/2025 12:49 PM CDT [facility] Neutrophil Absolute 10.17(H) 1.60 - 7.50 x10E9/L 03/18/2025 12:49 PM CDT [facility] Lymphocyte Absolute 0.45(L) 1.00 - 4.40 x10E9/L 03/18/2025 12:49 PM CDT [facility] Monocyte Absolute 0.23 0.15 - 1.00 x10E9/L 03/18/2025 12:49 PM CDT [facility] RBC Morphology NORMAL 03/18/2025 12:49 PM CDT [facility] Blood BLOOD SPECIMEN / Unknown Venipuncture / Unknown 03/18/2025 12:18 PM CDT 03/18/2025 12:21 PM CDT us Earlene Mckeon MD LAB - HEMATOLOGY ORDERABLE S Final Result [facility] [address] [place], [place] [id number] * (ABNORMAL) CBC W AUTO DIFFERENTIAL (03/18/2025 12:18 PM CDT) Only the most recent of4 resultswithin the time period is included. WBC 11.3(H) 4.0 - 10.7 x10E9/L 03/18/2025 12:50 PM CDT [facility] RBC Count 3.25(L) 3.90 - 5.20 x10E12/L 03/18/2025 12:50 PM CDT [facility] Hemoglobin 10.2(L) 11.9 - 15.8 g/dL 03/18/2025 12:50 PM CDT [facility] Hematocrit 31.9(L) 34.8 - 46.1 % 03/18/2025 12:50 PM CDT [facility] MCV 98.2(H) 80.0 - 98.0 fL 03/18/2025 12:50 PM CDT [facility] MCH 31.4 26.7 - 33.6 pg 03/18/2025 12:50 PM CDT [facility] MCHC 32.0 31.7 - 36.3 g/dL 03/18/2025 12:50 PM CDT [facility] RDW-CV 17.5(H) 11.3 - 14.8 % 03/18/2025 12:50 PM CDT [facility] Platelet Count 159 150 - 420 x10E9/L 03/18/2025 12:50 PM CDT [facility] MPV 8.5 7.8 - 11.4 fL 03/18/2025 12:50 PM CDT [facility] NRBC 0.2(H) <=0.0 /100 WBC 03/18/2025 12:50 PM CDT [facility] Blood BLOOD SPECIMEN / Unknown Venipuncture / Unknown 03/18/2025 12:18 PM CDT 03/18/2025 12:21 PM CDT us Earlene Mckeon MD LAB - HEMATOLOGY ORDERABLE S Final Result [facility] [address] [place] [address] * (ABNORMAL) COMPREHENSIVE METABOLIC PANEL (03/18/2025 12:18 PM CDT) Only the most recent of4 resultswithin the time period is included. [facility] Glucose 79 70 - 99 mg/dL 03/18/2025 12:39 PM [facility] Sodium 132(L) 136 - 145 mmol/L 03/18/2025 12:39 PM T [facility] Potassium 4.0 3.5 - 5.1 mmol/L 03/18/2025 12:39 PM T [facility] Chloride 100 98 - 107 mmol/L 03/18/2025 12:39 PM T [facility] CO2 28 22 - 29 mmol/L 03/18/2025 12:39 PM T [facility] Calcium 9.4 8.4 - 10.4 mg/dL 03/18/2025 12:39 PM [facility] Anion Gap 4(L) 6 - 16 mmol/L 03/18/2025 12:39 PM T [facility] BUN 37(H) 7 - 26 mg/dL 03/18/2025 12:39 PM T [facility] Creatinine 0.96 0.57 - 1.11 mg/dL 03/18/2025 12:39 PM T [facility] Alkaline Phosphatase 64 40 - 150 U/L 03/18/2025 12:39 PM T [facility] ALT 38 6 - 57 U/L 03/18/2025 12:39 PM CDT [facility] AST 19 10 - 48 U/L 03/18/2025 12:39 PM CDT [facility] Protein Total 6.0(L) 6.4 - 8.3 gm/dL 03/18/2025 12:39 PM CDT [facility] Albumin 3.2 3.1 - 4.5 gm/dL 03/18/2025 12:39 PM CDT [facility] Bilirubin Total 0.6 0.2 - 1.2 mg/dL 03/18/2025 12:39 PM CDT [facility] eGFR by CKD-EPI 67(L) >=90 mL/min/1.7 3 m2 03/18/2025 12:39 PM CDT [facility] Comment:Estimated Glomerular Filtration Rate (eGFR) calculated using the CKD-EPI Creatinine Equation (2020), per the National Kidney Foundation and [place] [employer] Nephrology recommendations. Blood BLOOD SPECIMEN / Unknown Venipuncture / Unknown 03/18/2025 12:18 PM CDT 03/18/2025 12:21 PM CDT Earlene Mckeon MD LAB - CHEMISTRY ORDERABLES Final Result [facility] [address] [place], [place] [id number] * MAGNESIUM BLOOD (03/18/2025 12:18 PM CDT) Only the most recent of4 resultswithin the time period is included. Magnesium 2.0 1.6 - 2.6 mg/dL 03/18/2025 12:39 PM CDT [facility] Blood BLOOD SPECIMEN / Unknown Venipuncture / Unknown 03/18/2025 12:18 PM CDT 03/18/2025 12:21 PM CDT Earlene Mckeon MD LAB - CHEMISTRY ORDERABLES Final Result Performing Organization Address City/[facility]/ZIP Co de Phone Number [facility] [address] [place] [phone] * TSH (03/18/2025 12:18 PM CDT) Only the most recent of4 resultswithin the time period is included. TSH 1.4675 0.35 - 4.94 uIU/mL 03/18/2025 12:58 PM CDT [facility] Blood BLOOD SPECIMEN / Unknown Venipuncture / Unknown 03/18/2025 12:18 PM CDT 03/18/2025 12:21 PM CDT Earlene Mckeon MD LAB - CHEMISTRY ORDERABLES Final Result Performing Organization Address [facility] de Phone Number [facility] [address] [place] [address] * T4 FREE (03/18/2025 12:18 PM CDT) Only the most recent of4 resultswithin the time period is included. T4 Free 1.05 0.70 - 1.50 ng/dL 03/18/2025 12:58 PM CDT [facility] Blood BLOOD SPECIMEN / Unknown Venipuncture / Unknown 03/18/2025 12:18 PM CDT 03/18/2025 12:21 PM CDT Earlene Mckeon MD LAB - CHEMISTRY ORDERABLES Final Result Performing Organization Address [facility] de Phone Number [facility] [address] [place] [address] * (ABNORMAL) CORTISOL BLOOD (03/18/2025 12:18 PM CDT) Only the most recent of4 resultswithin the time period is included. Cortisol 1.9(L) 2.9 - 19.4 ug/dL 03/18/2025 12:58 PM CDT [facility] Blood BLOOD SPECIMEN / Unknown Venipuncture / Unknown 03/18/2025 12:18 PM CDT 03/18/2025 12:21 PM CDT us Earlene Mckeon MD LAB - CHEMISTRY ORDERABLES Final Result [facility] [address] [place] [address] from Last 3 Months Insurance MEDICAID - OUT OF STATE [employer] Advance Directives * Full Code (Latest Code Status on File) Date Activated Date Inactivated Comments 12/05/2024 2:59 PM 12/08/2024 2:54 PM Care Teams Welder Pipe Making Relationship Specialty Start Date End Date Elyse Pinto APRN-[employer] [address] [phone] PCP - General Nurse Practitioner 04/17/24
--- OUTSIDE RECORDS SUMMARY | 2025-03-28 12:53 | XMS_ITS | Encounter Summary ---
Author Organization [facility] Address [address] [facility] [place] [address] Phone Care Team Providers Care Parking Lot Supervisor Name Role Phone Elyse Pinto APRN, CNP Primary Care Provid er Olivia Mcguire MD Unavailable [phone] Reason for Visit * Reason Comments Medication Refill Encounter Details Date Type Department Care Team (Late st Contact Info) Description 03/20/2022 Refill [facility]2 [place] [address] Elyse Pinto APRN, CNP #[address] [address] Medication Refill Social History Tobacco Use Types Packs/Day Years Used Date Smoking Tobacco: Former Cigarettes 1.5 30 1 - 04/08/2015 Smokeless Tobacco: Never Alcohol Use Standard Drinks/Week Comments Not Currently 0 (1 standard drink = 0.6 oz pur e alcohol) PHQ-2 Answer Date Recorded Total Score - Questions 1-9 1 09/06 Sexually Active Control Partners Comments Not Currently None Male Comments No Sex and Gender Information Value Date Recorded Sex Assigned at Not on file Legal Sex Female 9:38 PM CDT Gender Identity Not on file Sexual Orientation Not on file documented as of this encounter Miscellaneous Notes * Telephone Encounter - Elyse Pinto APRN, CNP - 03/21/2022 7:26 AM CDT [place] POST ANESTHESIA ROOM NURSE reviewed, UDS UTD. Approved * Telephone Encounter - Marielos Can RN - 03/20/2022 3:47 PM CDT PDMP 02/17/22 Medication failed the protocol, provider to review and approve the medication order if appropriate. Requested Prescriptions Pending Prescriptions Disp Refills clonazePAM (KlonoPIN) 1 MG Tablet [Pharmacy Med Name: CLONAZEPAM 1MG] 90 Tablet 0 Sig: TAKE ONE TABLET BY MOUTH THREE TIMES DAILY NEEDED FOR ANXIETY Not Delegated - Clonazepam Protocol Failed - 03/20/2022 11:23 AM Failed - This refill cannot be delegated Passed - Visit with relevant provider in past 12 months or upcoming 90 days Recent Visits Date Type Provider Dept 12/23/21 Office Visit Elyse Pinto APRN, CNP [facility] 09/19/21 Office Visit Elyse Pinto APRN, CNP [facility] Showing recent visits within past 365 days and meeting all other requirements Future Appointments Date Type Provider Dept 04/25/22 Appointment Elyse Pinto APRN, CNP [facility] Showing future appointments within next 90 days and meeting all other requirements documented in this encounter Plan of Treatment Not on file documented as of this encounter Visit Diagnoses Diagnosis Anxiety Anxiety state, unspecified documented in this encounter Care Teams Parking Lot Supervisor Relationship Specialty Start Date End Date Elyse Pinto APRN, CNP [facility] [address] [place] [address] PCP - General Advanced Practice Nurse 09/19/21 Olivia Mcguire MD #[address] [facility] [address] [place] [address] Consulting Physician Urology 04/04/24 documented as of this encounter
--- OUTSIDE RECORDS SUMMARY | 2025-03-28 12:53 | XMS_ITS | Encounter Summary ---
Author Organization [facility] Address [address] [facility] [place] [address] Phone Care Team Providers Care Receptionist Telephone Operator Name Role Phone Elyse Pinto APRN, CNP Primary Care Provid er Olivia Mcguire MD Unavailable [phone] Reason for Visit * Reason Comments Medication Refill Encounter Details Date Type Department Care Team (Late st Contact Info) Description 01/16/2022 Refill [facility] - Family Medicine [facility] #2 [place] [address] Elyse Pinto APRN, CNP #[address] [address] Medication Refill Social History Tobacco [...] on file Sexual Orientation Not on file COVID-19 Exposure Response Date Recorded In the last 10 days, have yo u been in contact with someone who was confirmed or suspected to have Coronavirus/COVID-19? No / Unsure 12/23/2021 10:18 AM CDT documented as of this encounter Miscellaneous Notes * Telephone Encounter - Elyse Pinto APRN, CNP - 01/17/2022 1:26 PM CDT [place] HAND BUFFER reviewed, UDS UTD. Approved * Telephone Encounter - Ghislaine Orozco RN - 01/17/2022 1:00 PM CDT PDMP 10/19/21 Medication failed the protocol, provider to review and approve the medication order if appropriate. Requested Prescriptions Pending Prescriptions Disp Refills clonazePAM (KlonoPIN) 1 MG Tablet [Pharmacy Med Name: CLONAZEPAM 1MG] 90 Tablet 0 Sig: TAKE ONE TABLET BY MOUTH THREE TIMES DAILY NEEDED FOR ANXIETY Not Delegated - Clonazepam Protocol Failed - 01/16/2022 2:22 PM Failed - This refill cannot be delegated Passed - Visit with relevant provider in past 12 months or upcoming 90 days Recent Visits Date Type Provider Dept 12/23/21 Office Visit Elyse Pinto APRN, CNP [facility] 09/19/21 Office Visit Elyse Pinto APRN, CNP [facility] Showing recent visits within past 365 days and meeting all other requirements Future Appointments No visits were found meeting these conditions. Showing future appointments within next 90 days and meeting all other requirements documented in this encounter Plan of Treatment Not on file documented as of this encounter Visit Diagnoses Diagnosis Anxiety Anxiety state, unspecified documented in this encounter Care Teams Receptionist Telephone Operator Relationship Specialty Start Date End Date Elyse Pinto APRN, CNP #[address] [address] PCP - General Advanced Practice Nurse 09/19/21 Olivia Mcguire MD #2 [facility], [address] [address] Consulting Physician Urology 04/04/24 documented as of this encounter
--- OUTSIDE RECORDS SUMMARY | 2025-03-28 12:53 | XMS_ITS | Encounter Summary ---
Author Organization [facility] Address [address] [place] [address] Phone Care Team Providers Care Director Underwriter Sales Name Role Phone Elyse Pinto APRN, KHOA Primary Care Provid er Olivia Mcguire MD Unavailable [phone] Reason for Visit * Reason Comments Medication Refill Encounter Details Date Type Department Care Team (Late st Contact Info) Description 10/01/2023 Refill [facility] - Family Medicine [facility] #2 [place] [address] Jocelyn Posey PAC #2 [place] [address] Medication Refill Social History Tobacco Use Types Packs/Day Years Used Date Smoking Tobacco: Former Cigarettes 1.5 30 1 - 04/08/2015 Smokeless Tobacco: Never Alcohol Use Standard Drinks/Week Comments Not Currently 0 (1 standard drink = 0.6 oz pur e alcohol) [facility] Utilities Answer Date Recorded In the past 12 months has [employer], gas, oil, or water company threatened to shut off services in your home? No 08/14/2023 Social Connection and Isolation Panel Answer Date Recorded In a typical week, how many times do you talk on the phone with family, friends, or neighbors? More than three times a week 08/14/2023 How often do you get togethe r with friends or relatives? Never 08/14/2023 How often do you attend chur ch or caodaism services? Never 08/14/2023 Do you belong to any clubs o r organizations such as evangelical groups, unions, fraternal or athletic groups, or school groups? No 08/14/2023 How often do you attend meet ings of the clubs or organizations you belong to? Never 08/14/2023 Are you , , di vorced, , never , or living with a partner? 08/14/2023 AUDIT-C Answer Date Recorded Q1: How often do you have a drink containing alcohol? Never 08/14/2023 Q2: How many drinks containi ng alcohol do you have on a typical day when you are drinking? Patient does not drink Q3: How often do you have si x or more drinks on one occasion? Never 08/14/2023 Overall Financial Resource Strain (CARDIA) Answe r Date Recorded How hard is it for you to pa y for the very basics like food, housing, medical care, and heating? Hard 08/14/2023 PHQ-2 Answer Date Recorded Total Score - Questions 1-9 1 09/06 [facility] - Occupational Stress Questionnaire Answer Date Recorded Do you feel stress - tense, restless, nervous, or anxious, or unable to sleep at night because your mind is troubled all the time - these days? Rather much 08/14/2023 Exercise Vital Sign Answer Date Recorde d On average, how many days pe r week do you engage in moderate to strenuous exercise (like a brisk walk)? 2 days 08/14/2023 On average, how many minutes do you engage in exercise at this level? 20 min 08/14/2023 Hunger Vital Sign Answer Date Recorded Within the past 12 months, y ou worried that your food would run out before you got the money to buy more. Often true Within the past 12 months, t he food you bought just didn't last and you didn't have money to get more. Sometimes true 12/2023 PRAPARE - Transportation Answer Date Re corded In the past 12 months, has l ack of transportation kept you from medical appointments or from getting medications? No 12/2023 In the past 12 months, has l ack of transportation kept you from meetings, work, or from getting things needed for daily living? Yes 08/14/2023 Housing Stability Vital Sign Answer Wesly e Recorded In the last 12 months, was t here a time when you were not able to pay the mortgage or rent on time? No 08/14/2023 In the last 12 months, how many places have you lived? 1 08/14/2023 In the last 12 months, was t here a time when you did not have a steady place to sleep or slept in a penitentiary (including now)? No 08/14/2023 Education Answer Date Recorded What is the highest level of school you have completed or the highest degree you have received? 12th grade 02/09/2023 Sexually Active Control Partners Comments Not Currently None Male Comments No Sex and Gender Information Value Date Recorded Sex Assigned at Not on file Legal Sex Female 9:38 PM CDT Gender Identity Not on file Sexual Orientation Not on file documented as of this encounter Miscellaneous Notes * Telephone Encounter - Ghislaine Orozco RN - 10/01/2023 5:23 PM CDT PDMP 08/31/23 Medication failed the protocol, provider to review and approve the medication order if appropriate. Requested Prescriptions Pending Prescriptions Disp Refills clonazePAM (KlonoPIN) 1 MG Tablet [Pharmacy Med Name: CLONAZEPAM 1 MG TABLET] 90 Tablet 0 Sig: TAKE 1 TABLET BY MOUTH THREE TIMES A DAY Not Delegated - Clonazepam Protocol Failed - 10/01/2023 3:39 PM Failed - This refill cannot be delegated Passed - Visit with relevant provider in past 12 months or upcoming 90 days Recent Visits Date Type Provider Dept 08/14/23 Office Visit Elyse Pinto APRN, CNP [facility] 02/09/23 Office Visit E[facility]into APRN[facility] [...] unspecified documented in this encounter Care Teams Director Underwriter Sales Relationship Specialty Start Date End Date Elyse Pinto APRN, KHOA #2 [facility] [address] [place] [address] PCP - General Advanced Practice Nurse 09/19/21 Olivia Mcguire MD [facility] [address] [place] [address] Consulting Physician Urology 04/04/24 documented as of this encounter
--- OUTSIDE RECORDS SUMMARY | 2025-03-28 12:53 | XMS_ITS | Encounter Summary ---
Author Organization [facility] Address [address] [facility] [place] [address] Phone Care Team Providers Care Health Services Information Specialist Name Role Phone Elyse Pinto APRN, CNP Primary Care Provid er Olivia Mcguire MD Unavailable [phone] Reason for Visit * Reason Comments Medication Refill Encounter Details Date Type Department Care Team (Late st Contact Info) Description 11/07/2021 Refill [facility] #2 [place] [address] Elyse Pinto APRN, CNP #[address] [address] Medication Refill Social History Tobacco [...] Telephone Encounter - Ghislaine Orozco RN - 11/08/2021 10:27 AM CDT NPT 09/19/21 - PRN medication requires review from provider Per nursing clinical judgement, provider to review and approve the medication(s) order(s) if appropriate. Requested Prescriptions Pending Prescriptions Disp Refills albuterol 108 (90 Base) MCG/ACT Aerosol Solution [Pharmacy Med Name: ALBUTEROL HFA 90MCG AER PRAS 108MCG/A] 18 g 1 Sig: INHALE 1 TO 2 PUFFS BY MOUTH EVERY FOUR HOURS NEEDED FOR WHEEZING OR COUGH Short Acting Inhaled Beta-Agonists Protocol Passed - 11/07/2021 10:56 AM Passed - Visit with relevant provider in past 12 months or upcoming 90 days Recent Visits Date Type Provider Dept 09/19/21 Office Visit Elyse Pinto APRN, [facility] Showing recent visits within past 365 days and meeting all other requirements Future Appointments Date Type Provider Dept 12/19/21 Appointment Elyse Pinto APRN, CNP [facility] Showing future appointments within next 90 days and meeting all other requirements documented in this encounter Plan of Treatment Not on file documented as of this encounter Visit Diagnoses Diagnosis Chronic obstructive pulmonary disease, unspecified COPD type documented in this encounter Care Teams Health Services Information Specialist Relationship Specialty Start Date End Date Elyse Pinto APRN, CNP #2 [facility] [address] [place] [id number] PCP - General Advanced Practice Nurse 09/19/21 Olivia Mcguire MD #2 [facility] [address] [place] [address] Consulting Physician Urology 04/04/24 documented as of this encounter
--- OUTSIDE RECORDS SUMMARY | 2025-03-28 12:53 | XMS_ITS ---
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 HYDRATION ORDERS* Plan Start Date:01/29/2025 Plan Provider:Earlene Mckeon MD Linked Problems 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) Treatment Medications No medications scheduled. PORT MAINTENANCE THERAPY PLAN* Plan Start Date:05/29/2024 Plan Provider:Earlene Mckeon MD Linked Problems Vulvar cancer, carcinoma (HC C) Treatment Medications No medications scheduled. VULVAR REC (PEMBROLIZUMAB) Q21 DAYS* Plan Start Date:12/22/2024 Plan Provider:Earlene Mckeon MD Linked Problems Vulvar cancer, carcinoma (HC C) Treatment Medications Current Day (Day 1 , Cycle 5 - Planned for 04/08/2025) Next Day (Day 1, Cycle 6 - Planned for 04/29/2025) pembrolizumab (Keytruda) Infusion pembrolizumab (Keytruda) 200 mg in NaCl IV 0.9 % 108 mL infusion pembrolizumab (Keytruda) 200 mg in NaCl IV 0.9 % 108 mL infusion Past Treatment and Therapy Plans ONCOLOGY TREATMENT Plan Name Start Date Discontinue Date Treatment Medications Discontinue Reason Plan Provider Cycles VULVAR MET (PACLITAXEL CARBOPLATIN PEMBROLIZUMAB BEVACIZUMAB) Q21 DAYS --> (PEMBROLIZUMAB BEVACIZUMAB) Q21 DAYS 024 09/18/2024 bevacizumab-awwb (Mvasi) InfusionCARBOplatin (Paraplatin) Infusion (AUC Dosing)PACLitaxel (Taxol) in 500 mL infusionpembrolizumab (Keytruda) Infusion Progression Earlene Mckeon MD 6 of 35 cycles started Radiation Treatments * Course [id number] 10/15/2024 - 11/28/2024 Treatment Period Energy Fraction Dose Fractions Total Dose Plans Planned [id number] 11/27/2024 - 11/28/2024 2 / 2 400 cGy [id number] 11/19/2024 - 11/26/2024 5 / 5 1,000 cGy Pelvis 50Gy 10/15/2024 - 11/18/2024 25 / 25 5,000 cGy Reference Points Delivered PTV_65 11/27/2024 - 11/28/2024 400 cGy PTV_64 11/19/2024 - 11/26/2024 1,000 cGy PTV_50 10/15/2024 - 11/18/2024 5,000 cGy
--- OUTSIDE RECORDS SUMMARY | 2025-03-28 12:53 | XMS_ITS | Encounter Summary ---
Author Organization [facility] Address [address] [place] [address] Phone Care Team Providers Care Siding Installer Name Role Phone Elyse Pinto APRN, CNP Primary Care Provid er Olivia Mcguire MD Unavailable [phone] Reason for Visit * Reason Comments Medication Refill Encounter Details Date Type Department Care Team (Late st Contact Info) Description 06/25/2023 Refill [facility] #2 [place] [address] Elyse Pinto APRN, CNP #[address] [address] Medication Refill Social History Tobacco Use Types Packs/Day Years Used Date Smoking Tobacco: Former Cigarettes 1.5 30 1 - 04/08/2015 Smokeless Tobacco: Never Alcohol Use Standard Drinks/Week Comments Not Currently 0 (1 standard drink = 0.6 oz pur e alcohol) PHQ-2 Answer Date Recorded Total Score - Questions 1-9 1 09/06 Education Answer Date Recorded What is the [...] Encounter - Elyse Pinto APRN, CNP - 06/26/2023 3:13 PM SILK BLOCKER [place] FABRIC WORKER LEADER reviewed, UDS compliant, approved BLOCKER * Telephone Encounter - Ghislaine Orozco RN - 06/25/2023 4:36 PM CST PDMP 05/01/23 Medication failed the protocol, provider to review and approve the medication order if appropriate. Requested Prescriptions Pending Prescriptions Disp Refills clonazePAM (KlonoPIN) 1 MG Tablet [Pharmacy Med Name: CLONAZEPAM 1 MG TABLET] 90 Tablet 0 Sig: TAKE 1 TABLET BY MOUTH THREE TIMES A DAY Not Delegated - Clonazepam Protocol Failed - 06/25/2023 3:20 PM Failed - This refill cannot be delegated Passed - Visit with relevant provider in past 12 months or upcoming 90 days Recent Visits Date Type Provider Dept 02/09/23 Office Visit Elyse Pinto APRN, CNP [facility] 09/29/22 Office Visit Elyse Pinto APRN, CNP [facility] Showing recent visits within past 365 days and meeting all other requirements Future Appointments Date Type Provider Dept 08/14/23 Appointment Elyse Pinto APRN, CNP [facility] Showing future appointments within next 90 days and meeting all other requirements BLOCKER documented in this encounter Plan of Treatment Not on file documented as of this encounter Visit Diagnoses Diagnosis Anxiety Anxiety state, unspecified documented in this encounter Care Teams Siding Installer Relationship Specialty Start Date End Date Elyse Pinto APRN, CNP [facility] [facility] [address] [place] [address] PCP - General Advanced Practice Nurse 09/19/21 Olivia Mcguire MD #[address] [address] Consulting Physician Urology 04/04/24 documented as of this encounter
--- OUTSIDE RECORDS SUMMARY | 2025-03-28 12:53 | XMS_ITS | Encounter Summary ---
Author Organization [facility] Address [address] [place] [address] Phone Care Team Providers Care Indoor Landscape Architect Name Role Phone Elyse Pinto APRN, CNP Primary Care Provid er Olivia Mcguire MD Unavailable [phone] Reason for Visit * Reason Comments Medication Refill Encounter Details Date Type Department Care Team (Late st Contact Info) Description 06/10/2023 Refill [facility] #2 [place] [address] Elyse Pinto APRN, CNP #[address] [address] Medication Refill Social History Tobacco [...] Telephone Encounter - Ghislaine Orozco RN - 06/11/2023 10:58 AM CST Images from the original note were not included. Verapamil HCl Dispensed Days Supply Quantity Provider Pharmacy VERAPAMIL SR 180 MG CAPSULE 05/20/2023 90 90 Each Elyse Pinto APRN, KHOA [id number] ... VERAPAMIL SR 180 MG CAPSULE 02/16/2023 90 90 Each Elyse Pinto APRN, CNP [id number]- ... TTING INTERVIEWER documented in this encounter Plan of Treatment Not on file documented as of this encounter Visit Diagnoses Diagnosis Primary hypertension Unspecified essential hypertension documented in this encounter Care Teams Indoor Landscape Architect Relationship Specialty Start Date End Date Elyse Pinto APRN, CNP #2 [facility] [address] [place] [address] PCP - General Advanced Practice Nurse 09/19/21 Olivia Mcguire MD #[address] [facility] [address] [place] [address] Consulting Physician Urology 04/04/24 documented as of this encounter
--- OUTSIDE RECORDS SUMMARY | 2025-03-28 12:53 | XMS_ITS | Encounter Summary ---
Author Organization [facility] Address [address] [facility] [place] [address] Phone Care Team Providers Care Interventional Radiology Tech Name Role Phone Elyse Pinto APRN, CNP Primary Care Provid er Olivia Mcguire MD Unavailable [phone] Reason for Visit * Reason Comments Medication Refill Encounter Details Date Type Department Care Team (Late st Contact Info) Description 02/16/2022 Refill [facility] #2 [place] [address] Elyse Pinto APRN, CNP #[address] [address] Medication Refill Social History Tobacco [...] Encounter - Elyse Pinto APRN, CNP - 02/17/2022 8:49 AM CDT [place] FOUNDRY HELPER reviewed, UDS UTD, approved * Telephone Encounter - Ghislaine Orozco RN - 02/17/2022 8:31 AM CDT PDMP 01/17/22 Medication failed the protocol, provider to review and approve the medication order if appropriate. Requested Prescriptions Pending Prescriptions Disp Refills clonazePAM (KlonoPIN) 1 MG Tablet [Pharmacy Med Name: CLONAZEPAM 1MG] 90 Tablet 0 Sig: TAKE ONE TABLET BY MOUTH THREE TIMES DAILY NEEDED FOR ANXIETY Not Delegated - Clonazepam Protocol Failed - 02/16/2022 1:44 PM Failed - This refill cannot be [...] unspecified documented in this encounter Care Teams Interventional Radiology Tech Relationship Specialty Start Date End Date Elyse Pinto APRN, CNP [facility] [address] [place] [address] PCP - General Advanced Practice Nurse 09/19/21 Olivia Mcguire MD #2 [facility] [address] [place] [address] Consulting Physician Urology 04/04/24 documented as of this encounter
--- OUTSIDE RECORDS SUMMARY | 2025-03-28 12:53 | XMS_ITS | Encounter Summary ---
Author Organization [facility] Address [address] [place] [address] Care Team Providers Care Software Configuration Specialist Name Role Phone Elyse Pinto MOUNTAIN BIKE GUIDE-TOOL ADJUSTER Primary Care Provide r Encounter Details Date Type Department Care Team (Late st Contact Info) Description 05/19/2024 Telephone [facility] [address] [facility] [address] [place] [address] Earlene Mckeon MD [address] [facility] [address] [place], [place] [id number] Social History Tobacco Use Types Packs/Day Years Used Date Smoking Tobacco: Former Cigarettes Q uit: 2016 Alcohol Use Standard Drinks/Week Comments Not Currently 0 (1 standard drink = 0.6 oz pur e alcohol) PHQ-2 Answer Date Recorded Patient Health Questionnaire-2 Score 0 05/20/2024 Comments No Sex and Gender Information Value Date Recorded Sex Assigned at Not on file Legal Sex Female 11:39 AM CDT Gender Identity Not on file Sexual Orientation Not on file documented as of this encounter Functional Status * Over the past 2 weeks, how often have you been bothered by any of the following problems? Question Answer Date of Assessment Author Little interest or pleasure in doing things Not at all 05/20/2024 9:04 AM Jocelyn Ansari RN Feeling down, depressed, or hopeless Not at all 05/20/2024 9:04 AM Jocelyn Ansari RN Patient Health Questionnaire -2 Score 0 05/20/2024 9:04 AM Jocelyn Ansari RN documented as of this encounter Plan of Treatment Upcoming Encounters Date Type Department Care Team (Late st Contact Info) Description 03/30/2025 9:30 AM CDT Appointment [facility] - PET Scan [address] [facility] [address] [place] [address] Earlene Mckeon MD [address] [facility] [address] [place] [address] 04/02/2025 9:30 AM CDT Clinical Support [facility] SAAS ARCHIT[facility] [address] [facility] [address] [place] [id number] Earlene Mckeon MD [address] [facility] [address] [place] [address] 04/02/2025 10:20 AM CDT Appointment [facility] [address] [facility] [address] [place] [address] Earlene Mckeon MD [address] [facility] [address] [place] [address] documented as of this encounter Visit Diagnoses Not on filedocumented in this encounter Care Teams Software Configuration Specialist Relationship Specialty Start Date End Date Elyse Pinto APRN-KHOA [address] [id number] PCP - General Nurse Practitioner 04/17/24 documented as of this encounter
--- OUTSIDE RECORDS SUMMARY | 2025-03-28 12:53 | XMS_ITS | Encounter Summary ---
Author Organization [facility] Address [address] [place] [address] Phone Care Team Providers Care Journey Lineman Name Role Phone Elyse Pinto APRN, CNP Primary Care Provid er Olivia Mcguire MD Unavailable [phone] Reason for Visit * Reason Comments Medication Refill Encounter Details Date Type Department Care Team (Late st Contact Info) Description 01/12/2023 Refill [facility] #2 [place] [address] Elyse Pinto APRN, CNP #[address] [address] Medication Refill Social History Tobacco [...] Encounter - Elyse Pinto APRN, CNP - 01/15/2023 8:05 AM CDT [place] ROPE MACHINE SETTER reviewed, UDS compliant approved * Telephone Encounter - Amalia Velazquez RN - 01/13/2023 9:40 AM CDT PDMP 12/14/22 as 30-day supply Medication failed the protocol, provider to review and approve the medication order if appropriate. Requested Prescriptions Pending Prescriptions Disp Refills clonazePAM (KlonoPIN) 1 MG Tablet [Pharmacy Med Name: CLONAZEPAM 1 MG TABLET] 90 Tablet 0 Sig: TAKE 1 TABLET BY MOUTH THREE TIMES A DAY Not Delegated - Clonazepam Protocol Failed - 01/12/2023 7:35 PM Failed - This refill cannot be delegated Passed - Visit with relevant provider in past 12 months or upcoming 90 days Recent Visits Date Type Provider Dept 09/29/22 Office Visit Elyse Pinto APRN, CNP [facility] 05/26/22 Office Visit Elyse Pinto APRN, CNP [facility] Showing recent visits within past 365 days and meeting all other requirements Future Appointments Date Type Provider Dept 02/02/23 Appointment Elyse Pinto APRN, CNP [facility] Showing future appointments within next 90 days and meeting all other requirements documented in this encounter Plan of Treatment Not on file documented as of this encounter Visit Diagnoses Diagnosis Anxiety Anxiety state, unspecified documented in this encounter Care Teams Journey Lineman Relationship Specialty Start Date End Date Elyse Pinto APRN, CNP #[address] [facility] [facility] [address] [place] [address] PCP - General Advanced Practice Nurse 09/19/21 Olivia Mcguire MD #[address] [facility] [address] [place] [address] Consulting Physician Urology 04/04/24 documented as of this encounter
--- OUTSIDE RECORDS SUMMARY | 2025-03-28 12:53 | XMS_ITS | Encounter Summary ---
Author Organization [facility] Address [address] [place] [address] Phone Care Team Providers Care Twister Hand Name Role Phone Elyse Pinto APRN, CNP Primary Care Provid er Olivia Mcguire MD Unavailable [phone] Reason for Referral * Radiology Services (Routine) - Authorized Specialty Diagnoses / Procedures Referred By Contbouchra t Referred To Contact Radiology Diagnoses Abnormal mammogram Procedures KATALINA DIAG BILATERAL DIGITAL W CAD W [place] Elyse Pinto APRN, CNP #[address] [address] Phone: tel: fax: Referral ID Status Reason Start Date Expiration Date V isits Requested Visits Authorized [id number] Authorized 12/18/2024 1 1 * Radiology Services (Routine) - Open Specialty Diagnoses / Procedures Referred By Naya saldana Referred To Contact Radiology Diagnoses Abnormal mammogram Procedures KATALINA US BREAST LIMITED JOSE Elyse Pinto APRN, CNP #[address] [address] Phone: tel: fax: Referral ID Status Reason Start Date Expiration Date Visits Re quested Visits Authorized [id number] Open 12/18/2024 1 1 Encounter Details Date Type Department Care Team (Late st Contact Info) Description 12/18/2024 Transcribe Orders [facility] [address] [place] [address] Elyse Pinto APRN, KHOA #[address] [facility] [address] [place] [address] Abnormal mammogram (Primary Dx) Social History Tobacco Use Types Packs/Day Years Used Date Smoking Tobacco: Former Cigarettes 1.5 30 1 - 04/08/2015 Smokeless Tobacco: Never Alcohol Use Standard Drinks/Week Comments Not Currently 0 (1 standard drink = 0.6 oz pur e alcohol) [facility] Utilities Answer Date Recorded In the past 12 months has [employer] gas, oil, or water [employer] threatened to shut off services in your home? No 08/14/2023 Social Connection and Isolation Panel Answer Date Recorded In a typical week, how many times do you talk on the phone with family, friends, or neighbors? More than three times a week 08/14/2023 How often do you get togethe r with friends or relatives? Never 08/14/2023 How often do you attend [facility] ch or congregation services? Never 08/14/2023 Do you belong to any clubs o r organizations such as yarsani groups, unions, fraternal or athletic groups, or [...] Date Recorded Total Score - Questions 1-9 0 09/2024 [facility] of Occupat ional Health - Occupational Stress [...] place to sleep or slept in a group home (including now)? No 08/14/2023 Education Answer Date [...] on file documented as of this encounter Plan of Treatment Scheduled Orders Name Type Priority Associated Diagnoses Orde r Schedule KATALINA US BREAST LIMITED JOSE Imaging Routine Abnormal mammogram Expected: 01/17/2025, Expires: 06/19/2025 KATALINA DIAG BILATERAL DIGITAL W CAD W [place] Imaging Routine Abnormal mammogram Expected: 01/17/2025, Expires: 06/19/2025 documented as of this encounter Visit Diagnoses Diagnosis Abnormal mammogram- Primary Abnormal mammogram, unspecified documented in this encounter Additional Health Concerns Assessment Noted Time PHQ-9 Depression Total Score: 0 10/10/19 25 9:22 AM CDT documented as of this encounter Care Teams Twister Hand Relationship Specialty Start Date End Date Elyse Pinto APRN, CNP #2 [facility] [address] [place] [address] PCP - General Advanced Practice Nurse 09/19/21 Olivia Mcguire MD [facility]2 [facility] [address] [place] [address] Consulting Physician Urology 04/04/24 documented as of this encounter
--- OUTSIDE RECORDS SUMMARY | 2025-03-28 12:53 | XMS_ITS | Encounter Summary ---
Author Organization [facility] Address [address] [facility] [place] [address] Phone Care Team Providers Care Form Grader Name Role Phone Elyse Pinto APRN, CNP Primary Care Provid er Olivia Mcguire MD Unavailable [phone] Reason for Visit * Reason Comments Medication Refill Encounter Details Date Type Department Care Team (Late st Contact Info) Description 08/16/2022 Refill [facility] #2 [place] [address] Elyse Pinto APRN, CNP #[address] [address] Medication Refill Social History Tobacco [...] encounter Miscellaneous Notes * Telephone Encounter - Jennifer Bai RN - 08/16/2022 10:48 AM MINIATURE MODEL MAKER PDMP 07/11/2022 #90 Medication failed the protocol, provider to review and approve the medication order if appropriate. Requested Prescriptions Pending Prescriptions Disp Refills clonazePAM (KlonoPIN) 1 MG Tablet [Pharmacy Med Name: CLONAZEPAM 1 MG TABLET] 90 Tablet 0 Sig: TAKE 1 TABLET BY MOUTH THREE TIMES A DAY Not Delegated - Clonazepam Protocol Failed - 08/16/2022 10:40 AM Failed - This refill cannot be delegated Passed - Visit with relevant provider in past 12 months or upcoming 90 days Recent Visits Date Type Provider Dept 05/26/22 Office Visit Elyse Pinto APRN, CNP [facility] 12/23/21 Office Visit Elyse Pinto APRN, [facility] 09/19/21 Office Visit Elyse Pinto APRN, [facility] Showing recent visits within past 365 days and meeting all other requirements Future Appointments Date Type Provider Dept 09/25/22 Appointment Elyse Pinto APRN, CNP [facility] Showing future appointments within next 90 days and meeting all other requirements ATURE MODEL MAKER documented in this encounter Plan of Treatment Not on file documented as of this encounter Visit Diagnoses Diagnosis Anxiety Anxiety state, unspecified documented in this encounter Care Teams Form Grader Relationship Specialty Start Date End Date Elyse Pinto APRN, CNP #2 [facility] [address] [place] [address] PCP - General Advanced Practice Nurse 09/19/21 Olivia Mcguire MD [facility]2 [facility] [address] [place] [address] Consulting Physician Urology 04/04/24 documented as of this encounter
--- OUTSIDE RECORDS SUMMARY | 2025-03-28 12:53 | XMS_ITS | Encounter Summary ---
Author Organization [facility] Address [address] [facility] [place] [address] Phone Care Team Providers Care Drier Take Off Tender Name Role Phone Elyse Pinto APRN, CNP Primary Care Provid er Olivia Mcguire MD Unavailable [phone] Reason for Visit * Reason Comments Medication Refill Encounter Details Date Type Department Care Team (Late st Contact Info) Description 09/11/2022 Refill [facility] #2 [place] [address] Joseph Gordon MD #[address] [address] Medication Refill Social History Tobacco Use Types [...] Encounter - Elyse Pinto APRN, CNP - 09/13/2022 12:12 AM RETORT SETTER [place] THROW OUT CLERK, UDS reviewed. Approved RT SETTER * Telephone Encounter - Ghislaine Orozco RN - 09/12/2022 9:46 AM CST PDMP 08/16/22 Medication failed the protocol, provider to review and approve the medication order if appropriate. Requested Prescriptions Pending Prescriptions Disp Refills clonazePAM (KlonoPIN) 1 MG Tablet [Pharmacy Med Name: CLONAZEPAM 1 MG TABLET] 90 Tablet 0 Sig: TAKE 1 TABLET BY MOUTH THREE TIMES A DAY Not Delegated - Clonazepam Protocol Failed - 09/11/2022 5:05 PM Failed - This refill cannot be delegated Passed - Visit with relevant provider in past 12 months or upcoming 90 days Recent Visits Date Type Provider Dept 05/26/22 Office Visit Elyse Pinto APRN, CNP [facility] 12/23/21 Office Visit Elyse Pinto APRN, CNP [facility] 09/19/21 Office Visit Elyse Pinto APRN, CNP [facility] Showing recent visits within past 365 days and meeting all other requirements Future Appointments Date Type Provider Dept 09/25/22 Appointment Elyse Pinto APRN, CNP [facility] Showing future appointments within next 90 days and meeting all other requirements RT SETTER documented in this encounter Plan of Treatment Not on file documented as of this encounter Visit Diagnoses Diagnosis Anxiety Anxiety state, unspecified documented in this encounter Care Teams Drier Take Off Tender Relationship Specialty Start Date End Date Elyse Pinto APRN, CNP #2 [facility] [address] [place] [address] PCP - General Advanced Practice Nurse 09/19/21 Olivia Mcguire MD #2 [facility] [address] [place] [address] Consulting Physician Urology 04/04/24 documented as of this encounter
--- OUTSIDE RECORDS SUMMARY | 2025-03-28 12:53 | XMS_ITS | Encounter Summary ---
Author Organization [facility] Address [address] [facility] [place] [address] Phone Care Team Providers Care Operation Agent Name Role Phone Elyse Pinto APRN, CNP Primary Care Provid er Olivia Mcguire MD Unavailable [phone] Reason for Visit * Reason Comments Medication Refill Encounter Details Date Type Department Care Team (Late st Contact Info) Description 10/27/2023 Refill [facility] - Family Medicine [facility] #2 [place] [address] Elyse Pinto APRN, CNP #[address] [address] Medication Refill Social History Tobacco Use Types Packs/Day Years Used Date Smoking Tobacco: Former Cigarettes 1.5 30 1 - 04/08/2015 Smokeless Tobacco: Never Alcohol Use Standard Drinks/Week Comments Not Currently 0 (1 standard drink = 0.6 oz pur e alcohol) [facility] Utilities Answer Date Recorded In the past 12 months has [employer], gas, oil, or water company threatened to [...] often do you attend chur ch or cheondoism services? Never 08/14/2023 Do you belong to any clubs o r organizations such as mandaen groups, unions, fraternal or athletic groups, or [...] Total Score - Questions 1-9 1 09/06 [facility] of Occupat ional [facility] - Occupational Stress Questionnaire Answer Date Recorded [...] place to sleep or slept in a custodial (including now)? No 08/14/2023 Education Answer Date [...] Telephone Encounter - Ghislaine Orozco RN - 10/29/2023 1:38 PM CDT PRN medication requires review from provider Per nursing clinical judgement, provider to review and approve the medication(s) order(s) if appropriate. Requested Prescriptions Pending Prescriptions Disp Refills atorvastatin (LIPITOR) 40 MG Tablet [Pharmacy Med Name: ATORVASTATIN 40 MG TABLET] 90 Tablet 3 Sig: TAKE 1 TABLET BY MOUTH EVERY DAY Hmg CoA Reductase Inhibitors Protocol Passed - 10/27/2023 11:41 PM Passed - Visit with relevant provider in past 12 months or upcoming 90 days Recent Visits Date Type Provider Dept 08/14/23 Office Visit Elyse Pinto APRN, [facility] 02/09/23 Office Visit Elyse Pinto APRN, [facility] Showing recent visits within past 365 days and meeting all other requirements Future Appointments No visits were found meeting these conditions. Showing future appointments within next 90 days and meeting all other requirements Passed - Lipid panel in past 12 months LDL Date Value Ref Range Status 11/08/2022 71 5 - 130 mg/dL Final HDL CHOLESTEROL Date Value Ref Range Status 11/08/2022 54.8 >40 mg/dL Final CHOLESTEROL Date Value Ref Range Status 11/08/2022 147 <=200 mg/dL Final TRIGLYCERIDES Date Value Ref Range Status 11/08/2022 108 <150 mg/dL Final VLDL Date Value Ref Range Status 11/08/2022 22 5 - 55 mg/dL Final CHOL/HDL RATIO Date Value Ref Range Status 11/08/2022 2.7 0.0 - 4.4 Final NON-HDL CHOLESTEROL Date Value Ref Range Status 11/08/2022 92.2 <130 mg/dL Final Passed - CMP in past 12 months SODIUM Date Value Ref Range Status 11/08/2022 140 136 - 144 mmol/L Final POTASSIUM Date Value Ref Range Status 11/08/2022 3.6 3.5 - 5.1 mmol/L Final CHLORIDE Date Value Ref Range Status 11/08/2022 100 100 - 110 mmol/L Final CO2, VENOUS Date Value Ref Range Status 11/08/2022 30 22 - 32 mmol/L Final ANION GAP Date Value Ref Range Status 11/08/2022 13.6 8.0 - 20.0 mmol/L Final GLUCOSE Date Value Ref Range Status 11/08/2022 95 70 - 99 mg/dL Final BUN Date Value Ref Range Status 11/08/2022 18 6 - 20 mg/dL Final CREATININE, BLOOD Date Value Ref Range Status 11/08/2022 1.03 0.60 - 1.10 mg/dL Final BUN/CREATININE RATIO Date Value Ref Range Status 11/08/2022 17 12 - 20 ratio Final TOTAL PROTEIN Date Value Ref Range Status 11/08/2022 7.6 6.0 - 8.3 g/dL Final ALBUMIN Date Value Ref Range Status 11/08/2022 4.6 3.5 - 5.2 g/dL Final Comment: The colormetric methods used for the determination of Albumin may lead to falsely elevated test results in patients suffering from renal failure or insufficiency due to interference with other proteins. A/G RATIO Date Value Ref Range Status 11/08/2022 1.5 1.0 - 2.0 Final CALCIUM Date Value Ref Range Status 11/08/2022 10.3 8.9 - 10.3 mg/dL Final T BILI Date Value Ref Range Status 11/08/2022 0.4 <=1.2 mg/dL Final SGOT (AST) Date Value Ref Range Status 11/08/2022 20 <=32 U/L Final SGPT (ALT) Date Value Ref Range Status 11/08/2022 21 <=41 U/L Final ALKALINE PHOSPHATASE Date Value Ref Range Status 11/08/2022 67 35 - 105 U/L Final GFR, EST. NONAFRICAN Date Value Ref Range Status 11/08/2022 55 (L) >=60 Final GFR, EST. Date Value Ref Range Status 11/08/2022 >60 >=60 Final GFR, ESTIMATED Date Value Ref Range Status 11/08/2022 >60 >=60 Final Comment: Creatinine Clearance is the preferred criteria for selecting drug dose adjustments in renally impaired patients. The GFR is provided as additional pertinent clinical information. GFR is reported in mL/min/1.73 sq m. Calculation based on the Chronic Kidney Disease Epidemiology Collaboration (CKD- EPI) equation refitwithout adjustment for race. IS THE PATIENT REQUIRED TO BE FASTING? Date Value Ref Range Status 11/08/2022 No Final albuterol 108 (90 Base) MCG/ACT Aerosol Solution [Pharmacy Med Name: ALBUTEROL HFA (PROAIR) INHALER] 18 g 5 Sig: INHALE 2 PUFFS BY MOUTH EVERY 4 HOURS NEEDED FOR WHEEZING OR COUGH Short Acting Inhaled Beta-Agonists Protocol Passed - 10/27/2023 11:41 PM Passed - Visit with relevant provider in past 12 months or upcoming 90 days Recent Visits Date Type Provider Dept 08/14/23 Office Visit Elyse Pinto APRN, CNP [facility] 02/09/23 Office Visit Elyse Pinto APRN, CNP [facility] Showing recent visits within past 365 days and meeting all other requirements Future Appointments No visits were found meeting these conditions. Showing future appointments within next 90 days and meeting all other requirements documented in this encounter Plan of Treatment Not on file documented as of this encounter Visit Diagnoses Diagnosis Mixed hyperlipidemia Chronic obstructive pulmonary disease, unspecified COPD type documented in this encounter Care Teams Operation Agent Relationship Specialty Start Date End Date Elyse Pinto APRN, CNP #[address] [address] PCP - General Advanced Practice Nurse 09/19/21 Olivia Mcguire MD #[address] [address] Consulting Physician Urology 04/04/24 documented as of this encounter
--- OUTSIDE RECORDS SUMMARY | 2025-03-28 12:53 | XMS_ITS | Encounter Summary ---
Author Organization [facility] Address [address] [place] [address] Phone Care Team Providers Care Oyster Farmer Name Role Phone Elyse Pinto APRN, CNP Primary Care Provid er Olivia Mcguire MD Unavailable [phone] Reason for Visit * Reason Comments Medication Refill Encounter Details Date Type Department Care Team (Late st Contact Info) Description 06/19/2024 Refill [facility] - Family Medicine [facility] #2 [place] [address] Elyse Pinto APRN, CNP #[address] [address] Medication Refill Social History Tobacco Use Types Packs/Day Years Used Date Smoking Tobacco: Former Cigarettes 1.5 30 1 - 04/08/2015 Smokeless Tobacco: Never Alcohol Use Standard Drinks/Week Comments Not Currently 0 (1 standard drink = 0.6 oz pur e alcohol) [facility] Utilities Answer Date Recorded In the past 12 months has [employer] electric, gas, oil, or water company threatened [...] often do you attend chur ch or lutheran services? Never 08/14/2023 Do you belong to any clubs o r organizations such as druze groups, unions, fraternal or athletic groups, or [...] Recorded Total Score - Questions 1-9 0 03/09 [facility] of Occupat ional [facility] - Occupational Stress Questionnaire Answer Date Recorded [...] place to sleep or slept in a chcf (including now)? No 08/14/2023 Education Answer Date [...] Telephone Encounter - Ghislaine Orozco RN - 06/20/2024 8:04 AM CST Images from the original note were not included. Albuterol Sulfate Dispensed Days Supply Quantity Provider Pharmacy ALBUTEROL HFA 90 MCG INHALER 06/11/2024 16 18 g Elyse Pinto APRN, CNP [facility]/pharmacy #[id number] -... ALBUTEROL HFA 90 MCG INHALER 05/23/2024 16 18 g Elyse Pinto APRN [facility] #[id number] -... ALBUTEROL HFA 90 MCG INHALER 04/29/2024 16 18 g Elyse Pinto APRN, CNP [facility] #[id number] -... ALBUTEROL HFA 90 MCG INHALER 04/15/2024 16 18 g Elyse Pinto APRN [facility]/pharmacy #[id number] -... ALBUTEROL HFA 90 MCG INHALER 03/26/2024 16 18 g Elyse Pinto APRN [facility] #[id number] -... ALBUTEROL HFA 90 MCG INHALER 03/03/2024 16 18 g Elyse Pinto APRN, KHO[facility] #[id number] -.. Refill too soon - should not be using 6 large inhalers in 3 months. MACHINE OPERATOR documented in this encounter Plan of Treatment Not on file documented as of this encounter Visit Diagnoses Diagnosis Chronic obstructive pulmonary disease, unspecified COPD type documented in this encounter Additional Health Concerns Assessment Noted Time PHQ-9 Depression Total Score: 0 03/26/20 24 1:20 PM CDT documented as of this encounter Care Teams Oyster Farmer Relationship Specialty Start Date End Date Elyse Pinto APRN, KHOA #2 [facility] [address] [place] [address] PCP - General Advanced Practice Nurse 09/19/21 Olivia Mcguire MD #[address] [facility] [address] [place] [address] Consulting Physician Urology 04/04/24 documented as of this encounter
--- OUTSIDE RECORDS SUMMARY | 2025-03-28 12:53 | XMS_ITS | Encounter Summary ---
Author Organization [facility] Address [address] [place] [address] Phone Care Team Providers Care Isotope Hydrologist Name Role Phone Elyse Pinto APRN, KHOA Primary Care Provid er Olivia Mcguire MD Unavailable [phone] Reason for Visit * Reason Comments Medication Refill Encounter Details Date Type Department Care Team (Late st Contact Info) Description 10/02/2022 Refill [facility] #2 [place] [address] Joseph Gordon MD #[address] [address] Medication Refill Social History Tobacco Use Types [...] suspected to have Coronavirus/COVID-19? No / Unsure 09/29/2022 1:15 PM CDT documented as of this encounter Miscellaneous Notes * Telephone Encounter - Ghislaine Orozco RN - 10/02/2022 4:44 PM CDT PRN medication requires review from provider Per nursing clinical judgement, provider to review and approve the medication(s) order(s) if appropriate. Requested Prescriptions Pending Prescriptions Disp Refills albuterol 108 (90 Base) MCG/ACT Aerosol Solution [Pharmacy Med Name: ALBUTEROL HFA (VENTOLIN) INH] 18 g 2 Sig: TAKE 2 PUFFS BY INHALATION EVERY 4 HOURS NEEDED FOR WHEEZING OR COUGH. Short Acting Inhaled Beta-Agonists Protocol Passed - 10/02/2022 2:08 PM Passed - Visit with relevant provider in past 12 months or upcoming 90 days Recent Visits Date Type Provider Dept 09/29/22 Office Visit Elyse Pinto APRN, CNP [facility] 05/26/22 Office Visit Elyse Pinto APRN, CNP [facility] 12/23/21 Office Visit Elyse Pinto APRN, CNP [facility] Showing recent visits within past 365 days and meeting all other requirements Future Appointments No visits were found meeting these conditions. Showing future appointments within next 90 days and meeting all other requirements budesonide-formoterol fumarate (Symbicort) 160-4.5 MCG/ACT Aerosol 10.2 g 2 Sig: take 2 Puffs by inhalation 2 times daily. There is no refill protocol information for this order documented in this encounter Plan of Treatment Not on file documented as of this encounter Visit Diagnoses Diagnosis Chronic obstructive pulmonary disease, unspecified COPD type documented in this encounter Care Teams Isotope Hydrologist Relationship Specialty Start Date End Date Elyse Pinto APRN, CNP [id number] [address] PCP - General Advanced Practice Nurse 09/19/21 Olivia Mcguire MD [address] [address] Consulting Physician Urology 04/04/24 documented as of this encounter
--- OUTSIDE RECORDS SUMMARY | 2025-03-28 12:53 | XMS_ITS | Encounter Summary ---
Author Organization [facility] Address [address] [place] [address] Phone Care Team Providers Care Pulp Tester Name Role Phone Elyse Pinto APRN, CNP Primary Care Provid er Olivia Mcguire MD Unavailable [phone] Reason for Visit * Reason Comments Medication Refill Encounter Details Date Type Department Care Team (Late st Contact Info) Description 02/01/2023 Refill [facility] #2 [place] [address] Elyse Pinto APRN, CNP #[address] [address] Medication Refill Social History Tobacco [...] Telephone Encounter - Ghislaine Orozco RN - 02/02/2023 10:32 AM CDT PRN medication requires review from provider Per nursing clinical judgement, provider to review and approve the medication(s) order(s) if appropriate. Requested Prescriptions Pending Prescriptions Disp Refills albuterol 108 (90 Base) MCG/ACT Aerosol Solution [Pharmacy Med Name: ALBUTEROL HFA (PROAIR) INHALER] 8.5 g 2 Sig: INHALE 2 PUFFS BY MOUTH EVERY 4 HOURS NEEDED FOR WHEEZING OR COUGH. Short Acting Inhaled Beta-Agonists Protocol Passed - 02/01/2023 6:51 PM Passed - Visit with relevant provider in past 12 months or upcoming 90 days Recent Visits Date Type Provider Dept 09/29/22 Office Visit Elyse Pinto APRN, CNP [facility] 05/26/22 Office Visit Elyse Pinto APRN, CNP [facility] Showing recent visits within past 365 days and meeting all other requirements Future Appointments Date Type Provider Dept 02/09/23 Appointment Elyse Pinto APRN, CNP [facility] Showing future appointments within next 90 days and meeting all other requirements documented in this encounter Plan of Treatment Not on file documented as of this encounter Visit Diagnoses Diagnosis Chronic obstructive pulmonary disease, unspecified COPD type documented in this encounter Care Teams Pulp Tester Relationship Specialty Start Date End Date Elyse Pinto APRN, CNP [facility] [address] [place] [address] PCP - General Advanced Practice Nurse 09/19/21 Olivia Mcguire MD #[address] [facility] [address] [place] [address] Consulting Physician Urology 04/04/24 documented as of this encounter
--- OUTSIDE RECORDS SUMMARY | 2025-03-28 12:53 | XMS_ITS | Encounter Summary ---
Author Organization [facility] Address [address] [place] [address] Phone Care Team Providers Care Manager Behavior Name Role Phone Elyse Pinto APRN, CNP Primary Care Provid er Olivia Mcguire MD Unavailable [phone] Reason for Visit * Reason Comments Medication Refill Encounter Details Date Type Department Care Team (Late st Contact Info) Description 03/26/2023 Refill [facility] #2 [place] [address] Elyse Pinto APRN, CNP #[address] [address] Medication Refill Social History Tobacco [...] Encounter - Elyse Pinto APRN, CNP - 03/26/2023 10:48 PM CDT [place] COW BUYER reviewed, approved * Telephone Encounter - Ghislaine Orozco RN - 03/26/2023 3:19 PM CDT PDMP 02/11/23 Medication failed the protocol, provider to review and approve the medication order if appropriate. Requested Prescriptions Pending Prescriptions Disp Refills clonazePAM (KlonoPIN) 1 MG Tablet [Pharmacy Med Name: CLONAZEPAM 1 MG TABLET] 90 Tablet 0 Sig: TAKE 1 TABLET BY MOUTH THREE TIMES A DAY Not Delegated - Clonazepam Protocol Failed - 03/26/2023 12:45 PM Failed - This refill cannot be delegated Passed - Visit with relevant provider in past 12 months or upcoming 90 days Recent Visits Date Type Provider Dept 02/09/23 Office Visit Elyse Pinto APRN, CNP [facility] 09/29/22 Office Visit Elyse Pinto APRN, CNP [facility] 05/26/22 Office Visit Elyse Pinto APRN, CNP [facility] Showing recent visits within past 365 days and meeting all other requirements Future Appointments Date Type Provider Dept 06/14/23 Appointment Elyse Pinto APRN, CNP [facility] Showing future appointments within next 90 days and meeting all other requirements documented in this encounter Plan of Treatment Not on file documented as of this encounter Visit Diagnoses Diagnosis Anxiety Anxiety state, unspecified documented in this encounter Care Teams Manager Behavior Relationship Specialty Start Date End Date Elyse Pinto APRN, CNP #[address] [address] PCP - General Advanced Practice Nurse 09/19/21 Olivia Mcguire MD #2 [place] [address] Consulting Physician Urology 04/04/24 documented as of this encounter
--- OUTSIDE RECORDS SUMMARY | 2025-03-28 12:53 | XMS_ITS | Encounter Summary ---
Author Organization [facility] Address [address] [place] [address] Phone Care Team Providers Care Director Of Coding Name Role Phone Elyse Pinto APRN, CNP Primary Care Provid er Olivia Mcguire MD Unavailable [phone] Reason for Visit * Reason Comments Medication Refill Encounter Details Date Type Department Care Team (Late st Contact Info) Description 07/31/2023 Refill [facility] #2 [place] [address] Elyse Pinto APRN, CNP #[address] [address] Medication Refill Social History Tobacco [...] Encounter - Elyse Pinto APRN, CNP - 07/31/2023 6:50 PM AGRIBUSINESS PROFESSOR [place] FERMENTER [place] reviewed approved BUSINESS PROFESSOR * Telephone Encounter - Ghislaine Orozco RN - 07/31/2023 2:38 PM CST PDMP 06/26/23 Medication failed the protocol, provider to review and approve the medication order if appropriate. Requested Prescriptions Pending Prescriptions Disp Refills clonazePAM (KlonoPIN) 1 MG Tablet [Pharmacy Med Name: CLONAZEPAM 1 MG TABLET] 90 Tablet 0 Sig: TAKE 1 TABLET BY MOUTH THREE TIMES A DAY Not Delegated - Clonazepam Protocol Failed - 07/31/2023 11:36 AM Failed - This refill cannot be [...] 90 days and meeting all other requirements BUSINESS PROFESSOR documented in this encounter Plan of Treatment Not on file documented as of this encounter Visit Diagnoses Diagnosis Anxiety Anxiety state, unspecified documented in this encounter Care Teams Director Of Coding Relationship Specialty Start Date End Date Elyse Pinto APRN, CNP [address] [facility] [address] [place] [address] PCP - General Advanced Practice Nurse 09/19/21 Olivia Mcguire MD [address] [address] Consulting Physician Urology 04/04/24 documented as of this encounter
--- OUTSIDE RECORDS SUMMARY | 2025-03-28 12:53 | XMS_ITS | Encounter Summary ---
Author Organization [facility] Address [address] [facility] [place] [address] Phone Care Team Providers Care Basket Bottom Machine Operator Name Role Phone Elyse Pinto APRN, CNP Primary Care Provid er Olivia Mcguire MD Unavailable [phone] Reason for Visit * Reason Comments Medication Refill Encounter Details Date Type Department Care Team (Late st Contact Info) Description 12/14/2022 Refill [facility] #2 [place] [address] Elyse Pinto APRN, CNP #[address] [address] Medication Refill Social History Tobacco [...] Encounter - Elyse Pinto APRN, CNP - 12/14/2022 5:22 PM CDT [place] SALAD COUNTER ATTENDANT reviewed, approved. * Telephone Encounter - Ghislaine Orozco RN - 12/14/2022 12:06 PM CDT PDMP 11/13/22 Medication failed the protocol, provider to review and approve the medication order if appropriate. Requested Prescriptions Pending Prescriptions Disp Refills clonazePAM (KlonoPIN) 1 MG Tablet [Pharmacy Med Name: CLONAZEPAM 1 MG TABLET] 90 Tablet 0 Sig: TAKE 1 TABLET BY MOUTH THREE TIMES A DAY Not Delegated - Clonazepam Protocol Failed - 12/14/2022 11:49 AM Failed - This refill cannot be [...] unspecified documented in this encounter Care Teams Basket Bottom Machine Operator Relationship Specialty Start Date End Date Elyse Pinto APRN, CNP [address] [facility] [address] [place] [address] PCP - General Advanced Practice Nurse 09/19/21 Olivia Mcguire MD #[address] [address] Consulting Physician Urology 04/04/24 documented as of this encounter
--- OUTSIDE RECORDS SUMMARY | 2025-03-28 12:53 | XMS_ITS | Encounter Summary ---
Author Organization [facility] Address [address] [facility] [place] [address] Phone Care Team Providers Care Outside Machinist Name Role Phone Elyse Pinto APRN, CNP Primary Care Provid er Olivia Mcguire MD Unavailable [phone] Reason for Visit * Reason Comments Medication Refill Encounter Details Date Type Department Care Team (Late st Contact Info) Description 06/14/2022 Refill [facility] - Family Medicine [facility] #2 [place] [address] Elyse Pinto APRN, CNP #[address] [address] Medication Refill Social History Tobacco [...] suspected to have Coronavirus/COVID-19? No / Unsure 05/26/2022 11:23 AM KNITTING MACHINE OPERATOR AUTOMATIC documented as of this encounter Miscellaneous Notes * Telephone Encounter - Ghislaine Orozco RN - 06/15/2022 8:45 AM CST PDMP 05/02/22 Medication failed the protocol, provider to review and approve the medication order if appropriate. Requested Prescriptions Pending Prescriptions Disp Refills clonazePAM (KlonoPIN) 1 MG Tablet [Pharmacy Med Name: CLONAZEPAM 1MG] 90 Tablet 0 Sig: TAKE ONE TABLET BY MOUTH THREE TIMES DAILY NEEDED FOR ANXIETY Not Delegated - Clonazepam Protocol Failed - 06/14/2022 3:12 PM Failed - This refill cannot be delegated Passed - Visit with relevant provider in past 12 months or upcoming 90 days Recent Visits Date Type Provider Dept 05/26/22 Office Visit Elyse Pinto APRN, CNP [facility] 12/23/21 Office Visit Elyse Pinto APRN, CNP [facility] 09/19/21 Office Visit Elyse Pinto APRN, CNP [facility] Showing recent visits within past 365 days and meeting all other requirements Future Appointments No visits were found meeting these conditions. Showing future appointments within next 90 days and meeting all other requirements TING MACHINE OPERATOR AUTOMATIC documented in this encounter Plan of Treatment Not on file documented as of this encounter Visit Diagnoses Diagnosis Anxiety Anxiety state, unspecified documented in this encounter Care Teams Outside Machinist Relationship Specialty Start Date End Date Elyse Pinto APRN, CNP #2 [facility] [address] [place] [address] PCP - General Advanced Practice Nurse 09/19/21 Olivia Mcguire MD #2 [facility] [address] [place] [address] Consulting Physician Urology 04/04/24 documented as of this encounter
--- OUTSIDE RECORDS SUMMARY | 2025-03-28 12:53 | XMS_ITS | Encounter Summary ---
Author Organization [facility] Address [address] [place] [address] Phone Care Team Providers Care Tube Backer Name Role Phone Elyse Pinto APRN, CNP Primary Care Provid er Olivia Mcguire MD Unavailable [phone] Reason for Visit * Reason Comments Medication Refill Encounter Details Date Type Department Care Team (Late st Contact Info) Description 12/21/2023 Refill [facility] - Family Medicine [facility] #2 [place] [address] Elyse Pinto APRN, CNP #[address] [address] Medication Refill Social History Tobacco Use Types Packs/Day Years Used Date Smoking Tobacco: Former Cigarettes 1.5 30 1 - 04/08/2015 Smokeless Tobacco: Never Alcohol Use Standard Drinks/Week Comments Not Currently 0 (1 standard drink = 0.6 oz pur e alcohol) [facility] Utilities Answer Date Recorded In the past 12 months has [employer] electric, gas, oil, or water company threatened [...] often do you attend chur ch or quaker services? Never 08/14/2023 Do you belong to any clubs o r organizations such as denominational groups, unions, fraternal or athletic groups, or [...] Total Score - Questions 1-9 1 09/06 [facility] of Occupat ional [facility] - Occupational Stress Questionnaire Answer Date [...] place to sleep or slept in a mcc (including now)? No 08/14/2023 Education Answer Date [...] Encounter - Elyse Pinto APRN, CNP - 12/21/2023 1:00 PM CDT approved * Telephone Encounter - Ghislaine Orozco RN - 12/21/2023 12:57 PM CDT PDMP 11/19/23 Medication failed the protocol, provider to review and approve the medication order if appropriate. Requested Prescriptions Pending Prescriptions Disp Refills clonazePAM (KlonoPIN) 1 MG Tablet [Pharmacy Med Name: CLONAZEPAM 1 MG TABLET] 90 Tablet 0 Sig: TAKE 1 TABLET BY MOUTH THREE TIMES A DAY Not Delegated - Clonazepam Protocol Failed - 12/21/2023 10:04 AM Failed - This refill cannot be [...] requirements Future Appointments Date Type Provider Dept 02/12/24 Appointment Elyse Pinto APRN, CNP [facility] Showing future appointments within next 90 days and meeting all other requirements Refused Prescriptions Disp Refills Symbicort 160-4.5 MCG/ACT Aerosol [Pharmacy Med Name: SYMBICORT 160-4.5 MCG INHALER] 3 Sig: INHALE 2 PUFFS BY MOUTH TWICE DAILY Inhaled Combinations Protocol Passed - 12/21/2023 10:04 AM Passed - Visit with relevant provider in past 12 months or upcoming 90 days Recent Visits Date Type Provider Dept 08/14/23 Office Visit Elyse Pinto APRN, CNP [facility] 02/09/23 Office Visit Elyse Pinto APRN, CNP [facility] Showing recent visits within past 365 days and meeting all other requirements Future Appointments Date Type Provider Dept 02/12/24 Appointment Elyse Pinto APRN, CNP [facility] Showing future appointments within next 90 days and meeting all other requirements Passed - Active short-acting beta agonist prescription * Telephone Encounter - Ghislaine Orozco RN - 12/21/2023 12:57 PM CDT Images from the original note were not included. udesonide-Formoterol Fumarate Dispensed Days Supply Quantity Provider Pharmacy SYMBICORT 160-4.5 MCG INHALER 12/14/2023 30 10.2 g Elyse Pinto APRN, CNP [facility]/pharmacy #[id number] - ... SYMBICORT 160-4.5 MCG INHALER 11/18/2023 30 10.2 g Elyse Pinto APRN, CNP [facility][id number] - ... SYMBICORT 160-4.5 MCG INHALER 10/23/2023 30 10.2 g Elyse Pinto APRN, CNP [facility]/pharmacy #[id number] - ... SYMBICORT 160-4.5 MCG INHALER 09/27/2023 30 10.2 g Elyse Pinto APRN, CNP [id number] - ... documented in this encounter Plan of Treatment Not on file documented as of this encounter Visit Diagnoses Diagnosis Chronic obstructive pulmonary disease, unspecified COPD type Anxiety Anxiety state, unspecified documented in this encounter Care Teams Tube Backer Relationship Specialty Start Date End Date Elyse Pinto APRN, CNP #2 [facility] [address] [place] [id number] PCP - General Advanced Practice Nurse 09/19/21 Olivia Mcguire MD #2 [facility] [address] [place] [address] Consulting Physician Urology 04/04/24 documented as of this encounter
--- OUTSIDE RECORDS SUMMARY | 2025-03-28 12:53 | XMS_ITS | Encounter Summary ---
Author Organization [facility] Address [address] [place] [address] Phone Care Team Providers Care Associate Project Manager Name Role Phone Elyse Pinto APRN, CNP Primary Care Provid er Olivia Mcguire MD Unavailable [phone] Reason for Visit * Reason Comments Medication Refill Encounter Details Date Type Department Care Team (Late st Contact Info) Description 11/15/2023 Refill [facility] - Family Medicine [facility] #2 [place] [address] Elyse Pinto APRN, CNP #[address] [address] Medication Refill Social History Tobacco Use Types Packs/Day Years Used Date Smoking Tobacco: Former Cigarettes 1.5 30 1 - 04/08/2015 Smokeless Tobacco: Never Alcohol Use Standard Drinks/Week Comments Not Currently 0 (1 standard drink = 0.6 oz pur e alcohol) [facility] Utilities Answer Date Recorded In the past 12 months has [employer] electric, gas, oil, or water company threatened [...] often do you attend chur ch or yarsanism services? Never 08/14/2023 Do you belong to [...] Total Score - Questions 1-9 1 09/06 [facility] of Occupat ional [facility] - Occupational Stress Questionnaire Answer Date Recorded [...] place to sleep or slept in a jail (including now)? No 08/14/2023 Education Answer Date [...] Telephone Encounter - Ghislaine Orozco RN - 11/16/2023 8:45 AM CDT PDMP Clonazepam 10/02/23 Medication failed the protocol, provider to review and approve the medication order if appropriate. Requested Prescriptions Pending Prescriptions Disp Refills verapamil (COVERA HS) 180 MG CAPSULE SR 24 HR [Pharmacy Med Name: VERAPAMIL SR 180 MG CAPSULE] 90 Capsule 1 Sig: TAKE 1 CAPSULE BY MOUTH EVERY DAY Calcium-Channel Blockers Protocol Passed - 11/15/2023 12:43 PM Passed - BP on record in the past year Clinician-entered: BP Readings from Last 3 Encounters: 08/14/23 126/78 02/09/23 116/76 09/29/22 118/74 Patient-entered: No data recorded Passed - Visit with relevant provider in past 12 months or upcoming 90 days Recent Visits Date Type Provider Dept 08/14/23 Office Visit Elyse Pinto APRN, [facility] 02/09/23 Office Visit Elyse Pinto APRN, [facility] Showing recent visits within past 365 days and meeting all other requirements Future Appointments Date Type Provider Dept 02/12/24 Appointment StroElyse wang APRN, CNP [facility] Showing future appointments within next 90 days and meeting all other requirements clonazePAM (KlonoPIN) 1 MG Tablet [Pharmacy Med Name: CLONAZEPAM 1 MG TABLET] 90 Tablet 0 Sig: TAKE 1 TABLET BY MOUTH THREE TIMES A DAY Not Delegated - Clonazepam Protocol Failed - 11/15/2023 12:43 PM Failed - This refill cannot be [...] Dept 02/12/24 Appointment Elyse Pinto APRN, CNP [facility] Showing future appointments within next 90 days and meeting all other requirements documented in this encounter Plan of Treatment Not on file documented as of this encounter Visit Diagnoses Diagnosis Primary hypertension Unspecified essential hypertension Anxiety Anxiety state, unspecified documented in this encounter Care Teams Associate Project Manager Relationship Specialty Start Date End Date Elyse Pinto APRN, CNP #2 [facility] [address] [place] [address] PCP - General Advanced Practice Nurse 09/19/21 Olivia Mcguire MD #2 [facility] [address] [place] [address] Consulting Physician Urology 04/04/24 documented as of this encounter
--- OUTSIDE RECORDS SUMMARY | 2025-03-28 12:53 | XMS_ITS | Encounter Summary ---
Author Organization [facility] Address [address] [place] [address] Care Team Providers Care Boat Engine Mechanic Name Role Phone Elyse Pinto POUND ATTENDANT-STAFF AIR TACTICAL OFFICER Primary Care Provide r Reason for Visit * Reason Onset Date Comments Establish Care 04/14/2024 Encounter Details Date Type Department Care Team (Late st Contact Info) Description 04/14/2024 Telephone [facility] - Centralized Scheduling [address] [place] [id number] Earlene Mckeon MD [address] [id number] Establish Care Social History Tobacco Use Types Packs/Day Years Used Date Smoking Tobacco: Never Assessed Comments Unknown Sex and Gender Information Value Date Recorded Sex Assigned at Not on file Legal Sex Female 11:39 AM CDT Gender Identity Not on file Sexual Orientation Not on file documented as of this encounter Miscellaneous Notes * Telephone Encounter - Iliana Hodge - 04/15/2024 11:16 AM CDT SCHEDULED-NEW ONC Physician referring the patient: Dr. Mcguire Reason/diagnosis for referral: Vaginal Mass Spoke with patient on: 04/15/2024 Patient agrees to appointment on: 04/17/2024 Patient aware of location, date and time. * Telephone Encounter - Tad Flores - 04/15/2024 10:11 AM CDT Pt calling to be scheduled for onc appt * Telephone Encounter - Renae Hernández - 04/14/2024 11:32 AM CDT ATTENTION STAFF TAKING THE INITIAL CALL: Please follow the workflow below for all NEW PROJECT HIRE/ONC patient calls. [place] the patient. If they are not in system, it is MANDATORY that you register them completely including insurance. Gather and document all the information listed below from the caller Referring provider: Dr. Olivia Santana Diagnosis: Vaginal mass Requesting appointment with : Mike casino floor person at referring provider's office: office phone [phone] Who should be contacted for scheduling (ie self, family member, guardian, etc.): self Best contact number for scheduling: [phone] Ask for records to be faxed to [phone] that same day. If the referring provider is an [facility] provider and their records are already viewable in [employer], do NOT ask for them to be faxed. Inform the caller you are forwarding this information to the PROJECT HIRE/ONC New Patient Intake Coordinatorfor review and someone from the team will be reaching out within one business day of the records being received to help schedule the appointment. If the patient or referring provider asks to speak with someone in the office at the time of the call, first finish gathering and documenting the above required information, tell the caller if no oneanswers they can leave a message and their call should be returned within one business day, and then transfer the call to [phone]. Forward this encounter to the [facility] PROJECT HIRE ONC NEW PATIENTS pool ([id number]). ATTENTION PROJECT HIRE/ONC NEW PATIENT OUTPATIENT ADMITTING CLERK or WINDER FIXER OFFICE STAFF SCHEDULING THE NEW PATIENT APPOINTMENT: Please follow the workflow below for all NEW PROJECT HIRE/ONC patient scheduling. Reach out to the designated personal computer network analyst listed above at the number provided. Assist in scheduling a NEW patient appointment within 10 days. Gather and document all the information listed below: Date referral was received: // How referral was received: Date contacted for scheduling: // Scheduled with Appointment date: // Appointment time: : Appointment location: Records location: If the patient reports a medical issue that needs to be triaged by an RN (i.e. bleeding, pain, etc.), this encounter should be marked high priority and forwarded to the PROJECT HIRE/ONC silk spooler after scheduling the NEW appointment and an RN will contact the patient. documented in this encounter Plan of Treatment Upcoming Encounters Date Type Department Care Team (Late st Contact Info) Description 03/30/2025 9:30 AM CDT Appointment [facility] - PET Scan [address] [place] [address] [address] [place] [address] [place] [address] [place], [place] [id number] 04/02/2025 9:30 AM CDT Clinical Support [facility] - WINDER FIXER [address] [facility] [address] [place] [phone] Earlene Mckeon MD [address] [place], [place] [phone] 04/02/2025 10:20 AM CDT Appointment [facility] [address] [facility] [address] [place] [address] Earlene Mckeon MD [address] [place] [id number] documented as of this encounter Visit Diagnoses Not on filedocumented in this encounter Care Teams Boat Engine Mechanic Relationship Specialty Start Date End Date Elyse Pinto APRN-KHOA [address] [phone] PCP - General Nurse Practitioner 04/17/24 documented as of this encounter
--- OUTSIDE RECORDS SUMMARY | 2025-03-28 12:53 | XMS_ITS | Encounter Summary ---
Author Organization [facility] Address [address] [place] [address] Phone Care Team Providers Care Microphone Operator Name Role Phone Elyse Pinto APRN, CNP Primary Care Provid er Olivia Mcguire MD Unavailable [phone] Reason for Visit * Reason Comments Medication Refill Encounter Details Date Type Department Care Team (Late st Contact Info) Description 02/21/2024 Refill [facility] - Family Medicine [facility] [address] [place] [address] Elyse Pinto APRN, CNP #[address] [address] Medication Refill Social History Tobacco Use Types Packs/Day Years Used Date Smoking Tobacco: Former Cigarettes 1.5 30 1 - 04/08/2015 Smokeless Tobacco: Never Alcohol Use Standard Drinks/Week Comments Not Currently 0 (1 standard drink = 0.6 oz pur e alcohol) [facility] Utilities Answer Date Recorded In the past 12 months has [employer], gas, oil, or water company threatened [...] often do you attend chur ch or sikh services? Never 08/14/2023 Do you belong to any clubs o r organizations such as religious groups, unions, fraternal or athletic groups, or [...] Total Score - Questions 1-9 1 09/06 [facility] of Occupat ional [facility] - Occupational Stress Questionnaire Answer Date Recorded [...] Telephone Encounter - Ghislaine Orozco RN - 02/22/2024 10:00 AM CDT 6 large (18g) inhalers in 4 months documented in this encounter Plan of Treatment Not on file documented as of this encounter Visit Diagnoses Diagnosis Chronic obstructive pulmonary disease, unspecified COPD type documented in this encounter Care Teams Microphone Operator Relationship Specialty Start Date End Date Elyse Pinto APRN, SHIFT COORDINATOR #2 [facility] [address] [place] [address] PCP - General Advanced Practice Nurse 09/19/21 Olivia Mcguire MD [address] [facility] [address] [place] [address] Consulting Physician Urology 04/04/24 documented as of this encounter
--- OUTSIDE RECORDS SUMMARY | 2025-03-28 12:53 | XMS_ITS | Clinical Summary ---
Author Organization [facility] Address [address] [place] [address] Phone Care Team Providers Care Inkjet Operator Name Role Phone Elyse Pinto APRN, KHOA Primary Care Provid er Olivia Mcguire MD Unavailable [phone] Allergies Active Allergy Reactions Criticality Noted Date Comments Bupropion Other (see Comments) 09/19/2021 Suicidal thoughts Medications montelukast (SINGULAIR) 10 MG TabletIndications :Chronic obstructive pulmonary disease, unspecified COPD type TAKE 1 TABLET BY MOUTH EVERY DAY IN THE EVENING 90 Tablet 1 09/02/19 25 Active ergocalciferol (VITAMIN D) 07319 UNIT Capsule Take 50,000 Units by mouth. Active lidocaine-priloca ine 2.5-2.5 % Cream Please apply sparingly to port a cath 30-60 minutes prior to labs and or chemotherapy. 05/13/20 24 Active loratadine (CLARITIN) 10 MG Tablet Take 1 Tablet by mouth daily. 06/03/20 24 Active Potassium Chloride ER (KLORCON) 20 MEQ Tablet Controlled Release Take 40 mEq by mouth. 08/07/19 25 Active triamterene-hydro chlorothiazide (DYAZIDE) 37.5-25 MG CapsuleIndication s:Primary hypertension TAKE 1 CAPSULE BY MOUTH EVERY DAY IN THE MORNING 90 Capsule 1 10/17/19 25 Active atorvastatin (LIPITOR) 40 MG TabletIndications :Mixed hyperlipidemia TAKE 1 TABLET BY MOUTH EVERY DAY 90 Tablet 1 10/25/19 25 Active ondansetron (ZOFRAN) 4 MG Tablet Take 8 mg by mouth every 8 hours as needed. Active verapamil (COVERA HS) 180 MG CAPSULE SR 24 HRIndications:Janeth sandee hypertension TAKE 1 CAPSULE BY MOUTH EVERY DAY 90 Capsule 1 11/13/19 25 Active albuterol 108 (90 Base) MCG/ACT Aerosol SolutionIndicatio ns:Chronic obstructive pulmonary disease, unspecified COPD type take 2 Puffs by inhalation every 4 hours as needed for Wheezing or Cough. 18 g 5 11/26/19 25 Active clonazePAM (KlonoPIN) 1 MG TabletIndications :Anxiety TAKE 1 TABLET BY MOUTH THREE TIMES A DAY 90 Tablet 01/22/20 25 Active budesonide-formot mckenna fumarate (SYMBICORT) 160-4.5 MCG/ACT AerosolIndication s:Chronic obstructive pulmonary disease, unspecified COPD type take 2 Puffs by inhalation 2 times daily. 30.6 g 1 03/03/20 25 Active budesonide-formot mckenna fumarate (Symbicort) 160-4.5 MCG/ACT AerosolIndication s:Chronic obstructive pulmonary disease, unspecified COPD type take 2 Puffs by inhalation 2 times daily. 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 05/02/2024 Encounters Date Type Department Care Team Description 03/02/[facility] [place] [address] Elyse Pinto APRN, CNP Medication Refill 01/21/2025 [facility] [place] [address] Elyse Pinto APRN, KHOA Medication Refill from Last 3 Months Immunizations Immunization Administration Dates Next Due Influenza Vaccine, Quadrivalent, PF 12/2023,05/26/2022,03/25/2019,03/13,05/31/2014 Influenza, Seasonal, Injecta ble, Undefined 05/13/2013 Influenza,Split Virus,Trivalent,Injectable,PF 03/26/2024 Pneumococcal Vaccine Adult - 23 Valent 4 Pneumococcal conjugate PCV20 , polysaccharide [id number] conjugate, adjuvant, PF 05/26/2022 Family History Medical History Relation Name Comments Cirrhosis Brother Diabetes Father Hypertension Father Stroke Father No Known Problems Maternal Aunt No Known Problems Maternal Grandfather No Known Problems Maternal Grandmother No Known Problems Maternal Uncle Cancer Mother pancreatic No Known Problems Other No Known Problems Paternal Aunt No Known Problems Paternal Grandfather No Known Problems Paternal Grandmother No Known Problems Paternal Uncle Cancer Sister pancreatic and liver Relation Name Status Comments Brother Father Maternal Aunt Maternal Grandfather Maternal Grandmother Maternal Uncle Mother Other Paternal Aunt Paternal Grandfather Paternal Grandmother Paternal Uncle Sister Social History Tobacco Use Types Packs/Day Years Used Date Smoking Tobacco: Former Cigarettes 1.5 30 1 - 04/08/2015 Smokeless Tobacco: Never Tobacco Cessation:Counseling Given: Not Answered Alcohol Use Standard Drinks/Week Comments Not Currently 0 (1 standard drink = 0.6 oz pur e alcohol) [facility] [employer] Answer Date Recorded In the past 12 months has [employer], [employer], oil, or water [employer] threatened to shut off services in your home? No 08/14/2023 Social Connection and Isolation Panel Answer Date Recorded In a typical week, how many times do you talk on the phone with family, friends, or neighbors? More than three times a week 08/14/2023 How often do you get togethe r with friends or relatives? Never 08/14/2023 How often do you attend [facility] or yazidism services? Never 08/14/2023 Do you belong to any clubs o r organizations such as muslim groups, unions, fraternal or athletic groups, or [...] Total Score - Questions 1-9 0 09/2024 [facility] of Occupat ional Health - Occupational [...] place to sleep or slept in a long term (including now)? No 08/14/2023 Education Answer Date [...] Sign Reading Time Taken Comments Blood Pressure 100/62 10/09/2024 9:16 AM CDT Pulse 98 10/09/2024 9:16 AM CDT Temperature 36.6 C (97.9 F) 10/09/2024 9:16 AM CDT Respiratory Rate 20 04/04/2024 9:30 AM CDT Oxygen Saturation 99% 10/09/2024 9:16 AM CDT Inhaled Oxygen Concentration - - Weight 68.9 kg (152 lb) 10/09/2024 9:16 AM CDT Height 162.6 cm (5' 4) 10/09/2024 9:16 AM CDT Body Mass Index 26.09 10/09/2024 9:16 AM CDT Plan of Treatment Health Maintenance Due Date Last Done Comments TdaP Immunization 1965 Zoster Immunization (1 of 2) 11/28/1982 Cologuard 11/28/2008 Immunochemical Fecal Occult Blood 11/28/2008 Colonoscopy 04/04/2023 04/04/2022 Colorectal Cancer Screening 04/04/2023 Respiratory Syncytial Virus (RSV) Immunization (Adult) (1 - Risk 60-74 years 1-dose series) 2023 Influenza Immunization (#1) 03/09/202503/09, 08/14/2023, 05/26/2022, Additional history exists Mammogram 07/11/2025 07/11/2024, 01/06, 01/19/2021 SARS-COV-2 Immunization Discontinued 11/03/2020, 10/11 Lung Cancer Screening Discontinued 02/14/2022 Pneumococcal Immunization (50+ years) Completed 05/26/2022, 05/31/2014 Pneumococcal Immunization Combined Discontinued 05/26/2022, 05/31/2014 Hepatitis B Immunization Discontinued Hepatitis C Virus (HCV) Screening Discontinued Human Papillomavirus (HPV) Immunization Aged Out No longer eligible based on patient's age to complete this topic Meningococcal Immunization (ACWY) Aged Out No longer eligible based on patient's age to complete this topic Rotavirus Immunization Aged Out No lo nger eligible based on patient's age to complete this topic Procedures Procedure Name Priority Date/Time Associated Diagnosis Comments KATALINA DIAG BILATERAL DIGITAL W CAD W [place] Stat with Interpretation 07/11/2024 11:06 AM TALENT RECRUITER Abnormal positron emission tomography (PET) scan Squamous cell carcinoma of vagina (HCC) from Last 3 Months or Most Recently Relevant to Health Maintenance Results * KATALINA DIAG BILATERAL DIGITAL W CAD W [place] (07/11/2024 11:06 AM TALENT RECRUITER) Anatomical Region Laterality Modality breast Bilateral Mammography 07/11/2024 10:0 6 AM TALENT RECRUITER Narrative 07/11/2024 1:28 PM TALENT RECRUITER - KATALINA DIAG BILATERAL DIGITAL W CAD W [place] - KATALINA US BREAST LIMITED JOSE BILATERAL DIGITAL DIAGNOSTIC MAMMOGRAM 3D/2D WITH CAD WITH MEDIOLATERAL OBLIQUE CRANIOCAUDAL AND TARGETED BILATERAL ULTRASOUND: 07/11/2024 The study was acquired using digital technology and interpreted from soft copy. Current study was also evaluated with Har[employer]ation[employer] version 7.2. 2D digital mammographic views, as well as 3D digital tomosynthesis were performed in the CC and MLO projections. CLINICAL: Abnormal finding on recent PET scan seen in medial left breast. Patient has no complaints. Personal history of vulvar cancer. Currently undergoing treatment. No family history of breast cancer. COMPARISONS: Comparison is made to exams dated: PET 04/28/2024 [facility], 07/26/2022, 01/19/2021 [facility], and 11/21/2013 [facility]. BREAST TISSUE:There are scattered areas of fibroglandular density. FINDINGS: DIAGNOSTIC BILATERAL MAMMOGRAM A circumscribed lesion is appreciated in the medial left breast, unchanged when compared with previous studies. This likely correlates with the finding on the PET scan. No other suspicious lesions are appreciated in the left breast. There are circumscribed nodular densities in the central and slightly outer superior right breast. These represent a change. No other significant masses or calcifications are seen in either breast on the mammogram. TARGETED BILATERAL BREAST ULTRASOUND Targeted RIGHT breast ultrasound was performed in the regions of interest. At the 12 o'clock position 5 cm from the nipple there is a hypoechoic small round lesion measuring 5 mm. This likely represents a complicated cyst and is probably benign. Additionally, at the 10 o'clock position 6 cm from the nipple there is an oval hypoechoic lesion parallel with the skin. This measures 8 mm x 3 mm x 5 mm. This is parallel with the skin. No color flow is documented. This correlates with the 2nd mammographic finding and is probably benign. Additional 1.1 cm simple cyst is identified at the 12 o'clock position 4 cm from the nipple as well as dilated retroareolar ducts. These are benign. Targeted LEFT breast ultrasound was performed in the regions of interest. At the 9 o'clock position 9 cm from the nipple there is an oval mixed echotexture circumscribed lesion identified. This measures 1.1 by 0.8 x 0.4 cm. It is parallel with the skin. There is no evidence of color flow. When compared with the ultrasound dated 01/19/2021 this lesion has an identical appearance. Differences in measurement in 1 dimension are felt to be technical in nature. Additionally, differences in clock position are felt to be positional in nature. This lesion very likely correlates with the finding on the PET scan and most likely represents a fibroadenoma. No other suspicious or solid lesions are appreciated in the medial and medial superior left breast. A tiny normal appearing lymph node is noted at the 10 o'clock position. IMPRESSION: OVERALL STUDY BIRADS: CATEGORY 3: PROBABLY BENIGN Stable appearing lesion at the 9 o'clock position of the left breast correlates with finding on PET scan, is unchanged when compared with ultrasound dated 01/19/2021 most likely represents a fibroadenoma and is benign. Lesions in the right breast at the 12 o'clock position 5 cm from the nipple and 10 o'clock position are probably benign. A follow-up mammogram and an ultrasound in 6 months is recommended to demonstrate stability. The results and recommendations were discussed with the patient. Electronically signed by: Linnea Gill M.D. ab/:07/11/2024 12:14:01 Manager E Learning(s): Monique [facility], [facility]; RT Barbara(R)(M), [facility] letter sent: Birad 3 Followup Reading location: [facility] STUDY BIRADS: Category 3: Probably Benign Procedure Note Linnea Gill MD - 07/11/2024 - KATALINA DIAG BILATERAL DIGITAL W CAD W [place] - KATALINA US BREAST LIMITED JOSE BILATERAL DIGITAL DIAGNOSTIC MAMMOGRAM 3D/2D WITH CAD WITH MEDIOLATERAL OBLIQUE CRANIOCAUDAL AND TARGETED BILATERAL ULTRASOUND: 07/11/2024 The study was acquired using digital technology and interpreted from soft copy. Current study was also evaluated with ICAD version 7.2. 2D digital mammographic views, as well as 3D digital tomosynthesis were performed in the CC and MLO projections. CLINICAL: Abnormal finding on recent PET scan seen in medial left breast. Patient has no complaints. Personal history of vulvar cancer. Currently undergoing treatment. No family history of breast cancer. COMPARISONS: Comparison is made to exams dated: PET 04/28/2024 [facility], 07/26/2022, 01/19/2021 [facility], and 11/21/2013 [facility]. BREAST TISSUE:There are scattered areas of fibroglandular density. FINDINGS: DIAGNOSTIC BILATERAL MAMMOGRAM A circumscribed lesion is appreciated in the medial left breast, unchanged when compared with previous studies. This likely correlates with the finding on the PET scan. No other suspicious lesions are appreciated in the left breast. There are circumscribed nodular densities in the central and slightly outer superior right breast. These represent a change. No other significant masses or calcifications are seen in either breast on the mammogram. TARGETED BILATERAL BREAST ULTRASOUND Targeted RIGHT breast ultrasound was performed in the regions of interest. At the 12 o'clock position 5 cm from the nipple there is a hypoechoic small round lesion measuring 5 mm. This likely represents a complicated cyst and is probably benign. Additionally, at the 10 o'clock position 6 cm from the nipple there is an oval hypoechoic lesion parallel with the skin. This measures 8 mm x 3 mm x 5 mm. This is parallel with the skin. No color flow is documented. This correlates with the 2nd mammographic finding and is probably benign. Additional 1.1 cm simple cyst is identified at the 12 o'clock position 4 cm from the nipple as well as dilated retroareolar ducts. These are benign. Targeted LEFT breast ultrasound was performed in the regions of interest. At the 9 o'clock position 9 cm from the nipple there is an oval mixed echotexture circumscribed lesion identified. This measures 1.1 by 0.8 x 0.4 cm. It is parallel with the skin. There is no evidence of color flow. When compared with the ultrasound dated 01/19/2021 this lesion has an identical appearance. Differences in measurement in 1 dimension are felt to be technical in nature. Additionally, differences in clock position are felt to be positional in nature. This lesion very likely correlates with the finding on the PET scan and most likely represents a fibroadenoma. No other suspicious or solid lesions are appreciated in the medial and medial superior left breast. A tiny normal appearing lymph node is noted at the 10 o'clock position. IMPRESSION: OVERALL STUDY BIRADS: CATEGORY 3: PROBABLY BENIGN Stable appearing lesion at the 9 o'clock position of the left breast correlates with finding on PET scan, is unchanged when compared with ultrasound dated 01/19/2021 most likely represents a fibroadenoma and is benign. Lesions in the right breast at the 12 o'clock position 5 cm from the nipple and 10 o'clock position are probably benign. A follow-up mammogram and an ultrasound in 6 months is recommended to demonstrate stability. The results and recommendations were discussed with the patient. Electronically signed by: Linnea Gill M.D. ab/:07/11/2024 12:14:01 Manager E Learning(s): Moinque Weller, [facility]; RT Barbara(R)(M), [facility] letter sent: Toyin Maier Followup Reading location: [facility] STUDY BIRADS: Category 3: Probably Benign Joseph Gordon MD IMG MAMMO ORDERABLES Final Re sult from Last 3 Months or Most Recently Relevant to Health Maintenance Insurance MEDICARE C [employer] Care Teams Inkjet Operator Relationship Specialty Start Date End Date Elyse Pinto APRN, CODING MANAGER #[address] [place] [address] PCP - General Advanced Practice Nurse 09/19/21 Olivia Mcguire MD #2 [facility] [address] [place] [address] Consulting Physician Urology 04/04/24
--- OUTSIDE RECORDS SUMMARY | 2025-03-28 12:53 | XMS_ITS | Encounter Summary ---
Author Organization [facility] Address [address] [place] [address] Phone Care Team Providers Care Family Partner Name Role Phone Elyse Pinto APRN, CNP Primary Care Provid er Olivia Mcguire MD Unavailable [phone] Reason for Visit * Reason Comments Medication Refill Encounter Details Date Type Department Care Team (Late st Contact Info) Description 09/01/2024 Refill [facility] - Family Medicine [facility] [address] [place] [address] Tonny Fuentes APRN, KHO[facility] [address] [address] Medication Refill Social History Tobacco Use Types Packs/Day Years Used Date Smoking Tobacco: Former Cigarettes 1.5 30 1 - 04/08/2015 Smokeless Tobacco: Never Alcohol Use Standard Drinks/Week Comments Not Currently 0 (1 standard drink = 0.6 oz pur e alcohol) [facility] Utilities Answer Date Recorded In the past 12 months has [employer] electric, gas, oil, or water company threatened [...] often do you attend chur ch or advent services? Never 08/14/2023 Do you belong to any clubs o r organizations such as moravian groups, unions, fraternal or athletic groups, or [...] Total Score - Questions 1-9 0 03/09 [facility] - Occupational [...] place to sleep or slept in a detention (including now)? No 08/14/2023 Education Answer Date [...] Telephone Encounter - Ghislaine Orozco RN - 09/02/2024 10:50 AM CST Images from the original note were not included. Budesonide-Formoterol Fumarate Dispensed Days Supply Quantity Provider Pharmacy [facility] 160-4.5 MCG INHALER 07/23/2024 90 30.6 g Tonny Fuentes APRN, CNP [id number] - ... ICAL THERAPY TEACHER documented in this encounter Plan of Treatment Not on file documented as of this encounter Visit Diagnoses Diagnosis Chronic obstructive pulmonary disease, unspecified COPD type documented in this encounter Additional Health Concerns Assessment Noted Time PHQ-9 Depression Total Score: 0 03/26/20 24 1:20 PM CDT documented as of this encounter Care Teams Family Partner Relationship Specialty Start Date End Date Elyse Pinto APRN, SENIOR ADVOCATE [address] [address] PCP - General Advanced Practice Nurse 09/19/21 Olivia Mcguire MD [id number] [address] Consulting Physician Urology 04/04/24 documented as of this encounter
--- OUTSIDE RECORDS SUMMARY | 2025-03-28 12:53 | XMS_ITS | Encounter Summary ---
Author Organization [facility] Address [address] [place] [address] Phone Care Team Providers Care Pressing Department Supervisor Name Role Phone Elsye Pinto APRN, CNP Primary Care Provid er Olivia Mcguire MD Unavailable [phone] Reason for Visit * Reason Comments Medication Refill Encounter Details Date Type Department Care Team (Late st Contact Info) Description 09/14/2023 Refill [facility] - Family Medicine [facility] [address] [place] [address] Elyse Pinto APRN, CNP #[address] [address] Medication Refill Social History Tobacco Use Types Packs/Day Years Used Date Smoking Tobacco: Former Cigarettes 1.5 30 1 - 04/08/2015 Smokeless Tobacco: Never Alcohol Use Standard Drinks/Week Comments Not Currently 0 (1 standard drink = 0.6 oz pur e alcohol) [facility] Utilities Answer Date Recorded In the past 12 months has [employer] electric, gas, oil, or water company threatened [...] often do you attend chur ch or buddhist services? Never 08/14/2023 Do you belong to any clubs o r organizations such as religion groups, unions, fraternal or athletic groups, or [...] Score - Questions 1-9 1 09/06 [facility] Occup[facility] - Occupational Stress Questionnaire Answer Date Recorded [...] Telephone Encounter - Ghislaine Orozco RN - 09/14/2023 4:30 PM CST Name from pharmacy: BUDESONIDE-FORMOTEROL 160-4.5 Will file in chart as: budesonide-formoterol fumarate (SYMBICORT) 160-4.5 MCG/ACT Aerosol The original prescription was discontinued on 08/14/2023 by Elyse Pinto APRN, CNP Brealbertina ordered PER documented in this encounter Plan of Treatment Not on file documented as of this encounter Visit Diagnoses Diagnosis Chronic obstructive pulmonary disease, unspecified COPD type documented in this encounter Care Teams Pressing Department Supervisor Relationship Specialty Start Date End Date Elyse Pinto APRN, CNP #[address] [facility] [address] [place] [id number] PCP - General Advanced Practice Nurse 09/19/21 Olivia Mcguire MD #2 [facility] [address] [place] [address] Consulting Physician Urology 04/04/24 documented as of this encounter
--- OUTSIDE RECORDS SUMMARY | 2025-03-28 12:53 | XMS_ITS | Encounter Summary ---
Author Organization [facility] Address [address] [place] [address] Phone Care Team Providers Care Car Wash Attendant Name Role Phone Elyse Pinto APRN, CNP Primary Care Provid er Olivia Mcguire MD Unavailable [phone] Reason for Visit * Reason Comments Medication Refill Encounter Details Date Type Department Care Team (Late st Contact Info) Description 05/01/2023 [facility]ill [facility] [address]2 [place] [address] Elyse Pinto APRN, CNP #[address] [address] Medication Refill Social History Tobacco [...] Encounter - Elyse Pinto APRN, CNP - 05/01/2023 3:35 PM CDT [place] CUT OFF [place] reviewed, approved * Telephone Encounter - Ghislaine Orozco RN - 05/01/2023 3:33 PM CDT PDMP 03/26/23 Medication failed the protocol, provider to review and approve the medication order if appropriate. Requested Prescriptions Pending Prescriptions Disp Refills clonazePAM (KlonoPIN) 1 MG Tablet [Pharmacy Med Name: CLONAZEPAM 1 MG TABLET] 90 Tablet 0 Sig: TAKE 1 TABLET BY MOUTH THREE TIMES A DAY Not Delegated - Clonazepam Protocol Failed - 05/01/2023 1:47 PM Failed - This refill cannot be [...] unspecified documented in this encounter Care Teams Car Wash Attendant Relationship Specialty Start Date End Date Elyse Pinto APRN, CNP #[address] [address] PCP - General Advanced Practice Nurse 09/19/21 Olivia Mcguire MD [address] [place] [address] Consulting Physician Urology 04/04/24 documented as of this encounter
--- OUTSIDE RECORDS SUMMARY | 2025-03-28 12:53 | XMS_ITS | Encounter Summary ---
Author Organization [facility] Address [address] [place] [address] Phone Care Team Providers Care Reeler Operator Name Role Phone Elyse Pinto APRN, CNP Primary Care Provid er Olivia Mcguire MD Unavailable [phone] Reason for Visit * Reason Comments Medication Refill Encounter Details Date Type Department Care Team (Late st Contact Info) Description 05/21/2023 Refill [facility] [address] [place] [address] Elyse Pinto APRN, CNP #[address] [address] Medication Refill Social History Tobacco [...] Telephone Encounter - Ghislaine Orozco RN - 05/21/2023 3:33 PM CST PRN medication requires review from provider Per nursing clinical judgement, provider to review and approve the medication(s) order(s) if appropriate. Requested Prescriptions Pending Prescriptions Disp Refills albuterol 108 (90 Base) MCG/ACT Aerosol Solution [Pharmacy Med Name: ALBUTEROL HFA (PROAIR) INHALER] 18 g 2 Sig: INHALE 2 PUFFS BY MOUTH EVERY 4 HOURS NEEDED FOR WHEEZING OR COUGH Short Acting Inhaled Beta-Agonists Protocol Passed - 05/21/2023 11:54 AM Passed - Visit with relevant provider in past 12 months or upcoming 90 days Recent Visits Date Type Provider Dept 02/09/23 Office Visit Elyse Pinto APRN, CNP [facility] 09/29/22 Office Visit lEyse Pinto APRN, [facility] 05/26/22 Office Visit Elyse Pinto APRN, [facility] Showing recent visits within past 365 days and meeting all other requirements Future Appointments Date Type Provider Dept 06/14/23 Appointment Elyse Pinto APRN, CNP [facility] Showing future appointments within next 90 days and meeting all other requirements SSING CALENDER OPERATOR documented in this encounter Plan of Treatment Not on file documented as of this encounter Visit Diagnoses Diagnosis Chronic obstructive pulmonary disease, unspecified COPD type documented in this encounter Care Teams Reeler Operator Relationship Specialty Start Date End Date Elyse Pinto APRN, INDUCTION COORDINATION POWER ENGINEER #2 [facility] [address] [place] [id number] PCP - General Advanced Practice Nurse 09/19/21 Olivia Mcguire MD #2 [facility] [address] [place] [address] Consulting Physician Urology 04/04/24 documented as of this encounter
--- OUTSIDE RECORDS SUMMARY | 2025-03-28 12:53 | XMS_ITS | Encounter Summary ---
Author Organization [facility] Address [address] [facility] [place] [address] Phone Care Team Providers Care Process Control Board Operator Name Role Phone Elyse Pinto APRN, CNP Primary Care Provid er Olivia Mcguire MD Unavailable [phone] Reason for Visit * Reason Comments Medication Refill Encounter Details Date Type Department Care Team (Late st Contact Info) Description 11/12/2022 Refill [facility] [address] [place] [address] Elyse Pinto APRN, CNP #[address] [address] Medication Refill Social History [...] suspected to have Coronavirus/COVID-19? No / Unsure 11/08/2022 11:35 AM CDT documented as of this encounter Miscellaneous Notes * Telephone Encounter - Elyse Pinto APRN, CNP - 11/13/2022 1:18 PM CDT [place] CUSTOMER SERVICE AND SALES CONSULTANT reviewed, Approved * Telephone Encounter - Ghislaine Orozco RN - 11/13/2022 11:02 AM CDT PDMP 10/11/22 Medication failed the protocol, provider to review and approve the medication order if appropriate. Requested Prescriptions Pending Prescriptions Disp Refills clonazePAM (KlonoPIN) 1 MG Tablet [Pharmacy Med Name: CLONAZEPAM 1 MG TABLET] 90 Tablet 0 Sig: TAKE 1 TABLET BY MOUTH THREE TIMES A DAY Not Delegated - Clonazepam Protocol Failed - 11/12/2022 12:08 PM Failed - This refill cannot be delegated Passed - Visit with relevant provider in past 12 months or upcoming 90 days Recent Visits Date Type Provider Dept 09/29/22 Office Visit Elyse Pinto APRN, CNP [facility] 05/26/22 Office Visit Elyse Pinto APRN, CNP [facility] 12/23/21 Office Visit Elyse Pinto APRN, CNP [facility] Showing recent visits within past 365 days and meeting all other requirements Future Appointments Date Type Provider Dept 02/02/23 Appointment Elyse Pinto APRN, CNP [facility] Showing future appointments within next 90 days and meeting all other requirements * Telephone Encounter - Romelia Dean RN - 11/13/2022 11:02 AM CDT PDMP 10/11/22. Medication failed the protocol, provider to review and approve the medication order if appropriate. Requested Prescriptions Pending Prescriptions Disp Refills clonazePAM (KlonoPIN) 1 MG Tablet [Pharmacy Med Name: CLONAZEPAM 1 MG TABLET] 90 Tablet 0 Sig: TAKE 1 TABLET BY MOUTH THREE TIMES A DAY Not Delegated - Clonazepam Protocol Failed - 11/12/2022 12:08 PM Failed - This refill cannot be [...] unspecified documented in this encounter Care Teams Process Control Board Operator Relationship Specialty Start Date End Date Elyse Pinto APRN, CNP #2 [facility] [address] [place] [phone] PCP - General Advanced Practice Nurse 09/19/21 Olivia Mcguire MD #2 [facility] [address] [place] [address] Consulting Physician Urology 04/04/24 documented as of this encounter
--- NOTE | 2025-03-28 15:15 | ED.WEAKNESS ---
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 HISTORY OF COPD, CURRENTLY FULL CODE. THE FAMILY DENIES THAT THE PATIENT HAVE ANY FEVER, CHILLS, NAUSEA OR VOMITING. PATIENT IS AWAKE, ALERT ORIENTED X4, DENYING ANY COMPLAIN Related Data Home Medications ?Medication ?Instructions ?Recorded ?Confirmed ?Last Taken ?Type cholecalciferol (vitamin D3) 125 125 mcg PO DAILY 11/08/21 03/29/25 03/28/25 History mcg (5,000 unit) capsule clonazepam 1 mg tablet 1 mg PO TID 11/08/21 03/29/25 03/28/25 History triamterene 37.5 1 cap PO DAILY 11/08/21 03/29/25 03/28/25 History mg-hydrochlorothiazide 25 mg capsule verapamil 180 mg 24 hr 180 mg PO DAILY 11/08/21 03/29/25 03/28/25 History capsule,extended release atorvastatin 40 mg tablet 40 mg PO DAILY 11/01/22 03/29/25 03/28/25 History duloxetine 30 mg capsule,delayed 30 mg PO DAILY 03/29/25 03/29/25 03/28/25 History release folic acid 1 mg tablet 1 mg PO DAILY 03/29/25 03/29/25 03/28/25 History loratadine 10 mg capsule 10 mg PO Q24H 03/29/25 03/29/25 03/28/25 History montelukast 10 mg tablet 10 mg PO QPM 03/29/25 03/29/25 03/28/25 History ondansetron HCl 8 mg tablet 8 mg PO Q12H PRN nausea and 03/29/25 03/29/25 03/28/25 History vomiting sennosides 8.6 mg capsule (senna) 17.2 mg PO BID 03/29/25 03/29/25 03/28/25 History Allergies Allergy/AdvReac Type Severity Reaction Status Date / Time varenicline (From 3Guppies) Allergy Severe Depression Verified 11/01/22 11:18 bupropion (From Wellbutrin) AdvReac Severe Depression Verified 11/01/22 11:18 Review of Systems Review of Systems: All systems reviewed & are unremarkable except as noted in HPI and below PMFSH Past Medical History Medical History Hypertension Benign breast lumps Surgical History Surgical History H/O: hysterectomy Social History Social History Smoking packs per day: 1 Smoking cigarettes per day: 20.0 Years smoked: 35 Smoking pack-years: 35.00 Smoking status: Former smoker Smoking end date: 07/09/15 Alcohol intake: never Substance use: current Substance use type: marijuana Living arrangements: with family Occupation/Education: other Gender identity (if verbalized by the patient): Female Exam Narrative: GENERAL APPEARANCE: WELL-DEVELOPED, WELL-NOURISHED WEEK, LOOKS CONFUSED SKIN: NORMAL COLOR HEAD: NORMOCEPHALIC, NONTRAUMATIC EYES: CLEAR CONJUNCTIVA DELAY EYE MOVEMENT TO FOLLOW MY FINGER ENT: OROPHARYNX NORMAL, EARS NORMAL, NOSE NORMAL NECK: SUPPLE, NONTENDER CHEST AND RESPIRATORY: AIRWAY PATENT, NO RESPIRATORY DISTRESS, NO ACCESSORY MUSCLE USE HEART: REGULAR RATE/RHYTHM ABDOMEN: SOFT, NONTENDER, NO ORGANOMEGALY, QUIET BOWEL SOUNDS VASCULAR: NORMAL PERIPHERAL PULSES, NORMAL CAPILLARY REFILL. MUSCULOSKELETAL: NORMAL RANGE OF MOTION, NONTENDER BACK NEUROLOGIC: ALERT AND ORIENTED ?3, COULD NOT REMEMBER THE NAME OF THE PRESIDENT. STAFF INTERPRETER IS NORMAL TESTED, NO GROSS MOTOR DEFICIT Course Consultations Consultation #1: DR SERRATO, NEUROLOGIST AT [facility] WHO ACCEPTED PATIENT, WAITING LIST Date: 03/28/25 Time: 18:30 Vital Signs Vital signs: Vital Signs Temperature 36.7 C 03/28/25 12:59 Pulse Rate 139 H 03/28/25 12:59 Respiratory Rate 20 03/28/25 12:59 Blood Pressure 111/88 03/28/25 12:59 Pulse Oximetry 100 03/28/25 12:59 Oxygen Delivery Room Air 03/28/25 12:59 Temperature 36.7 C 03/28/25 12:59 Pulse Rate 109 H 03/29/25 19:15 Respiratory Rate 33 H 03/29/25 19:15 Blood Pressure 129/79 03/29/25 17:01 Pulse Oximetry 93 03/29/25 19:15 Oxygen Delivery Room Air 03/28/25 12:59 MDM - Weakness MDM Narrative Medical decision making narrative: PATIENT PRESENTS WITH GENERAL WEAKNESS POOR P.O. INTAKE VITAL SIGNS SHOWING HEART RATE OF 139 OTHERWISE WITHIN NORMAL LIMIT PHYSICAL EXAM SHOWING DEBILITATED PATIENT, TACHYCARDIA LOOKS WEAK AND TIRED DIFFERENTIAL DIAGNOSIS ADVANCED OVARIAN CANCER WITH METASTASIS, ELECTROLYTE IMBALANCE, DEHYDRATION, PNEUMONIA, URINARY TRACT INFECTION, DEPRESSION BLOOD WORKUP TODAY INCLUDES CBC, CMP, LIPASE, TROPONIN, COAGS SHOWED HEMOGLOBIN 9.8, SODIUM 128, BUN 27, GLUCOSE 126, AST 53 ALT 54 URINALYSIS SHOWED EVIDENCE OF INFECTION CT HEAD WITHOUT CONTRAST SHOWED AGE INDETERMINATE FOCUS OF LEFT FRONTAL SUBCORTICAL ISCHEMIA. NO HEMORRHAGE. MRI RECOMMENDED THE ED PATIENT RECEIVED 1 G OF ROCEPHIN IV, 300 MG OF PLAVIX P.O., POSSIBLE ALLERGY TO ASPIRIN AND NORMAL SALINE 125 CC/HOUR DIAGNOSIS ALTERED MENTAL STATUS, URINARY TRACT INFECTION, HYPOVOLEMIC HYPONATREMIA, ACUTE CVA-SUSPECTED. NO NEUROLOGY AVAILABLE ON-CALL TODAY. TRANSFERRED TO [facility], ACCEPTED BY DR. SERRATO, THE NEUROLOGIST ON-CALL, WAITING LIST. PATIENT CARE TURNED OVER TO DR. MARIE AT [facility], DISPOSITION. PATIENT BEEN RESTING QUIETLY IN THE EMERGENCY ROOM WITHOUT ANY ISSUES OR PROBLEMS. The staff approach me today at the end of my shift to talk to the hospitalist for possible admission to our facility because patient has been on the waiting list since yesterday and tomorrow will have Neurology on-call available Physical examination showing that the patient is more lethargic than when I saw her yesterday. CTA head and neck last night showed no ICA stenosis or other acute arterial abnormality, lytic bony metastatic disease C2, C5, lytic bony metastatic disease right scapula with large associated soft tissue component, no large vessel arterial occlusion disease or other acute arterial abnormality. Blood workup showed calcium level of 14.4 which is secondary to bone metastasis and high likely the underlying cause of patient lethargy and confusion. Normal saline IV bolus, 1 L, calcitonin 250 units subQ once, zoledronic acid 4 mg/100 mL IV piggyback ordered Neurology consult in the morning, Admit to hospitalist. Differential Diagnosis Differential diagnosis: Likely other ( ABOVE) Medical Records Attestation: I reviewed the patient's medical records. Lab Data Attestation: I reviewed the patient's lab results. 03/28/25 16:07 03/28/25 16:07 Labs: Lab Results 03/28/25 03/28/25 03/29/25 Range/Units 16:07 16:49 17:47 WBC 8.2 (4.5-10.0) K/mm3 RBC 3.30 L (4.2-5.4) M/mm3 Hgb 9.8 L (12.0-15.0) g/dL Hct 29.9 L (37.0-47.0) % MCV 90.6 (80-100) fl MCH 29.7 (26-34) pg MCHC 32.8 (32-36) g/dl RDW 16.6 H (11.5-14.5) % Plt Count 162 (150-375) k/mm3 MPV 10.0 (7.4-10.4) fl Immature Gran % (Auto) 3.5 H (0-0.5) % Neut % (Auto) 86.1 H (45.5-73.1) % Lymph % (Auto) 3.7 L (18.3-44.2) % Limestone % (Auto) 6.0 (2.6-8.5) % Eos % (Auto) 0.2 (0-4.4) % Baso % (Auto) 0.5 (0.2-1.2) % Lymph # (Auto) 0.30 L (0.9-3.2) K/mm3 Limestone # (Auto) 0.5 (0.1-0.6) K/mm3 Eos # (Auto) 0.0 (0-0.3) K/mm3 Baso # (Auto) 0.0 (0.0-0.1) K/mm3 Abs Immat Gran (auto) 0.29 H (0.00-0.031) K/mm3 Absolute Neuts (auto) 7.0 H (1.3-6.7) K/mm3 Absolute Nucleated RBC 0.000 (0.0-0.012) K/mm3 Nucleated RBC % 0.0 (0.0-0.2) % PT 14.1 (11.1-14.7) Seconds INR 1.1 APTT 26.9 (22.3-36.8) Seconds Sodium 128 L (137-145) mmol/L Potassium 3.7 (3.4-5.0) mmol/L Chloride 88 L (98-107) mmol/L Carbon Dioxide 33 H (22-30) mmol/L Anion Gap 7 (4-12) mmol/L BUN 27 H (7-17) mg/dL Creatinine 0.85 (0.7-1.0) mg/dL Estim Creat Clear Calc 52 ml/min Estimated GFR > 60 (59 - ) Glucose 126 H (65-110) mg/dL POC Capillary Glucose 94 (65-105) mg/dl Calcium 14.4 H* (8.4-10.2) mg/dL Magnesium Total Bilirubin 1.2 (0.2-1.3) mg/dL AST 53 H (14-36) U/L ALT 54 H (6-35) U/L Alkaline Phosphatase 122 (38-126) U/L Total Creatine Kinase 24 L (30-135) U/L Total Protein 6.9 (6.3-8.2) g/dL Albumin 3.4 L (3.5-5.1) g/dL Urine Color Yellow (Yellow) Urine Appearance Turbid H (Clear) Urine pH 6.5 (5.0-9.0) Ur Specific [place] 1.014 (1.001-1.035) Urine Protein Negative (Negative) mg/dL Urine Glucose (UA) Negative (Negative) mg/dL Urine Ketones Negative (Negative) mg/dL Ur Blood (Man) Negative (Negative) Urine Nitrate Positive H (Negative) Urine Bilirubin Negative (Negative) Urine Urobilinogen 2.0 H (<2.0) mg/dL Leukocyte Esterase Rfl Trace H (Negative) JULI/UL Urine RBC 0-2 (0-2) /hpf Urine WBC 11-20 H (0-3) /hpf Ur Squamous Epith Cells None seen (Few) /hpf Urine Bacteria 4+ /hpf Urine Casts 0-2 09/21/25 Range/Units 19:40 WBC Pending (4.5-10.0) K/mm3 RBC Pending (4.2-5.4) M/mm3 Hgb Pending (12.0-15.0) g/dL Hct Pending (37.0-47.0) % MCV Pending (80-100) fl MCH Pending (26-34) pg MCHC Pending (32-36) g/dl RDW Pending (11.5-14.5) % Plt Count Pending (150-375) k/mm3 MPV Pending (7.4-10.4) fl Immature Gran % (Auto) Pending (0-0.5) % Neut % (Auto) Pending (45.5-73.1) % Lymph % (Auto) Pending (18.3-44.2) % Limestone % (Auto) Pending (2.6-8.5) % Eos % (Auto) Pending (0-4.4) % Baso % (Auto) Pending (0.2-1.2) % Lymph # (Auto) Pending (0.9-3.2) K/mm3 Lim[place] # (Auto) Pending (0.1-0.6) K/mm3 Eos # (Auto) Pending (0-0.3) K/mm3 Baso # (Auto) Pending (0.0-0.1) K/mm3 Abs Immat Gran (auto) Pending (0.00-0.031) K/mm3 Absolute Neuts (auto) Pending (1.3-6.7) K/mm3 Absolute Nucleated RBC Pending (0.0-0.012) K/mm3 Nucleated RBC % Pending (0.0-0.2) % PT (11.1-14.7) Seconds INR APTT (22.3-36.8) Seconds Sodium Pending (137-145) mmol/L Potassium Pending (3.4-5.0) mmol/L Chloride Pending (98-107) mmol/L Carbon Dioxide Pending (22-30) mmol/L Anion Gap Pending (4-12) mmol/L BUN Pending (7-17) mg/dL Creatinine Pending (0.7-1.0) mg/dL Estim Creat Clear Calc Pending ml/min Estimated GFR Pending (59 - ) Glucose Pending (65-110) mg/dL POC Capillary Glucose (65-105) mg/dl Calcium Pending (8.4-10.2) mg/dL Magnesium Pending Total Bilirubin Pending (0.2-1.3) mg/dL AST Pending (14-36) U/L ALT Pending (6-35) U/L Alkaline Phosphatase Pending (38-126) U/L Total Creatine Kinase (30-135) U/L Total Protein Pending (6.3-8.2) g/dL Albumin Pending (3.5-5.1) g/dL Urine Color (Yellow) Urine Appearance (Clear) Urine pH (5.0-9.0) Ur Specific [place] (1.001-1.035) Urine Protein (Negative) mg/dL Urine Glucose (UA) (Negative) mg/dL Urine Ketones (Negative) mg/dL Ur Blood (Man) (Negative) Urine Nitrate (Negative) Urine Bilirubin (Negative) Urine Urobilinogen (<2.0) mg/dL Leukocyte Esterase Rfl (Negative) JULI/UL Urine RBC (0-2) /hpf Urine WBC (0-3) /hpf Ur Squamous Epith Cells (Few) /hpf Urine Bacteria /hpf Urine Casts Imaging Data Radiologist's impression: Impressions Chest X-Ray 03/28/25 17:17 Impression: No acute cardiopulmonary abnormality. Head CT 03/28/25 17:39 Impression: Age-indeterminate focus of left frontal subcortical ischemia. No hemorrhage. MRI recommended ECG Data EKG #1: Attestation: I personally reviewed and interpreted this ECG as follows: ECG completion date: 03/28/25 Prior ECG tracings: not available for review Interpretation: SINUS TACHYCARDIA AT 122 BEATS PER MINUTE, POOR R-WAVE PROGRESSION, ANTERIOR SEPTAL MYOCARDIAL INFARCTION OF INDETERMINATE AGE, NO PREVIOUS EKG AVAILABLE FOR COMPARISON Critical Care Time Critical Care Time Critical Care Time: Yes Total Critical Care Time: 30 Discharge Plan Discharge Clinical Impression: Urinary tract infection, Ovarian cancer, Acute hyponatremia, Acute cerebrovascular accident (CVA), Hypercalcemia of malignancy Patient Disposition: Still a Patient Condition: Stable Patient Language: [place]ese Prescriptions: No Action atorvastatin 40 mg tablet 40 mg PO DAILY triamterene-hydrochlorothiazid 37.5-25 mg capsule 1 cap PO DAILY verapamil 180 mg capsule,ext rel. pellets 24 hr 180 mg PO DAILY clonazepam 1 mg tablet 1 mg PO TID cholecalciferol (vitamin D3) 125 mcg (5,000 unit) capsule 125 mcg PO DAILY albuterol sulfate 90 mcg/actuation HFA aerosol inhaler 2 inh inhalation Q6H PRN (Reason: shortness of breath or wheezing) Qty: 1 3RF folic acid 1 mg tablet 1 mg PO DAILY duloxetine 30 mg capsule,delayed release(DR/EC) 30 mg PO DAILY loratadine 10 mg capsule 10 mg PO Q24H senna 8.6 mg capsule 17.2 mg PO BID ondansetron HCl 8 mg tablet 8 mg PO Q12H PRN (Reason: nausea and vomiting) montelukast 10 mg tablet 10 mg PO QPM (DME) Amber Clark [facility] Spacer See Rx Instructions .ROUTE .MEDSUPPLY Qty: 1 0RF Rx Instructions: As directed budesonide-formoterol [Symbicort] 80-4.5 mcg/actuation HFA aerosol inhaler 2 puff inhalation Q12H Qty: 10.2 5RF Rx Instructions: rinse and spit albuterol sulfate 2.5 mg /3 mL (0.083 %) solution for nebulization See Rx Instructions .ROUTE .COMPLEX Qty: 180 11RF Dose Instruction: INHALE ONE VIAL IN NEBULIZER EVERY 4-6 HURS NEEDED FOR SHORTNESS OF BREATH OR WHEEZING Rx Instructions: INHALE ONE VIAL IN NEBULIZER EVERY 4-6 HURS NEEDED FOR SHORTNESS OF BREATH OR WHEEZING Follow-up/Referrals: PHYSICIAN NOT ON STAFF,NONSTAFF [Non-Staff] Quality Stroke Scale Stroke Scale 1: 1a Level of consciousness: alert-0 1b Level of consciousness questions: answers both correctly-0 1c Level of consciousness commands: obeys both correctly-0 2 Best gaze: partial gaze palsy-1 3 Visual: no visual loss-0 4 Facial palsy: normal-0 5a Motor: left arm: no drift-0 5b Motor: right arm: no drift-0 6a Motor: left leg: no drift-0 6b Motor: right leg: drift-1 7 Limb ataxia: present in one limb-1 8 Sensory: normal-0 9 Best language: no aphasia-0 10 Dysarthria: normal-0 11 Extinction and inattention: no abnormality-0 Level:: 3
--- NOTE | 2025-03-28 15:18 | ECG_ITS ---
Test Date: 2025-03-28 15:50:16 Measurements Intervals [place] Rate: 122 P: 98 LA: 160 QRS: -1 QRSD: 133 T: 89 QT: 293 QTc: 419 Interpretive Statements SINUS TACHYCARDIA LEFT BUNDLE BRANCH BLOCK ABNORMAL ECG No previous ECG available for comparison Electronically Signed On 03-29-2025 08:17:07 CDT by Joseph Oconnell M.D.
[2025-03-28] MEDS: SODIUM CHLORIDE 0.9% IV 1,000 ML 999 ML IV CONT (15:30)
--- OUTSIDE RECORDS SUMMARY | 2025-03-28 16:01 | XMS_ITS | Encounter Summary ---
Author Organization [facility] Address [address] [place] [address] [place] [address] Phone Care Team Providers Care Sales Account Executive Name Role Phone Elyse Pinto APRN, CNP Primary Care Provid er Olivia Mcguire MD Unavailable [phone] Reason for Visit * Reason Comments Medication Refill Encounter Details Date Type Department Care Team (Late st Contact Info) Description 03/26/2023 [facility]ill [facility] [address] [place] [address] Elyse Pinto APRN, CNP [address] [address] Medication Refill Social History Tobacco [...] encounter Miscellaneous Notes * Telephone Encounter - Eylse Pinto APRN, CNP - 03/26/2023 10:48 PM CDT [place] [employer] reviewed, approved * Telephone Encounter - Ghislaine [...] unspecified documented in this encounter Care Teams Sales Account Executive Relationship Specialty Start Date End Date Elyse Pinto APRN, CNP [address] [address] PCP - General Advanced Practice Nurse 09/19/21 Olivia Mcguire MD [address] [place] [address] Consulting Physician Urology 04/04/24 documented as of this encounter
--- OUTSIDE RECORDS SUMMARY | 2025-03-28 16:01 | XMS_ITS | Encounter Summary ---
Author Organization [facility] Address [address] [facility] [place] [address] Phone Care Team Providers Care Repairer Evaporator Name Role Phone Elyse Pinto APRN, CNP Primary Care Provid er Olivia Mcguire MD Unavailable [phone] Reason for Visit * Reason Comments Medication Refill Encounter Details Date Type Department Care Team (Late st Contact Info) Description 10/27/2023 Refill [facility] - Family Medicine [facility] [address] [place] [address] Elyse Pinto APRN, CNP [address] [address] Medication Refill Social History Tobacco Use Types Packs/Day Years Used Date Smoking Tobacco: Former Cigarettes 1.5 30 1 - 04/08/2015 Smokeless Tobacco: Never Alcohol Use Standard Drinks/Week Comments Not Currently 0 (1 standard drink = 0.6 oz pur e alcohol) [facility] Utilities Answer Date Recorded In the past 12 months has [employer] electric, gas, oil, or water company threatened [...] often do you attend chur ch or jain services? Never 08/14/2023 Do you belong to any clubs o r organizations such as protestant groups, unions, fraternal or athletic groups, or [...] Total Score - Questions 1-9 1 09/06 [facility] of Occupat ional [facility] - Occupational Stress Questionnaire Answer Date [...] 02/09/23 Office Visit Elyse Pinto APRN, CNP [facility] Showing recent visits within past 365 [...] type documented in this encounter Care Teams Repairer Evaporator Relationship Specialty Start Date End Date Elyse Pinto APRN, CNP [address] [address] PCP - General Advanced Practice Nurse 09/19/21 Olivia Mcguire MD #[address] [address] Consulting Physician Urology 04/04/24 documented as of this encounter
--- OUTSIDE RECORDS SUMMARY | 2025-03-28 16:01 | XMS_ITS | Encounter Summary ---
Author Organization [facility] Address [address] [place] [address] Phone Care Team Providers Care Permit Agent Name Role Phone Elyse Pinto APRN, KHOA Primary Care Provid er Olivia Mcguire MD Unavailable [phone] Reason for Visit * Reason Comments Medication Refill Encounter Details Date Type Department Care Team (Late st Contact Info) Description 10/01/2023 Refill [facility] - Family Medicine [facility] [address] [place] [address] Jocelyn Posey PAC [address] [place] [address] Medication Refill Social History Tobacco Use Types Packs/Day Years Used Date Smoking Tobacco: Former Cigarettes 1.5 30 1 - 04/08/2015 Smokeless Tobacco: Never Alcohol Use Standard Drinks/Week Comments Not Currently 0 (1 standard drink = 0.6 oz pur e alcohol) [facility] Utilities Answer Date Recorded In the past 12 months has [employer], gas, oil, or water company threatened to [...] often do you attend chur ch or christian services? Never 08/14/2023 Do you belong to any clubs o r organizations such as buddhism groups, unions, fraternal or athletic groups, or [...] Total Score - Questions 1-9 1 09/06 [facility] of Occupat ional Health - [...] place to sleep or slept in a fpc (including now)? No 08/14/2023 Education Answer Date [...] unspecified documented in this encounter Care Teams Permit Agent Relationship Specialty Start Date End Date Elyse Pinto APRN, KHOA [address]2 [facility] [address] [place] [address] PCP - General Advanced Practice Nurse 09/19/21 Olivia Mcguire MD #2 [facility] [address] [place] [address] Consulting Physician Urology 04/04/24 documented as of this encounter
--- OUTSIDE RECORDS SUMMARY | 2025-03-28 16:01 | XMS_ITS | Encounter Summary ---
Author Organization [facility] Address [address] [place] [address] Phone Care Team Providers Care Computer Hardware Developer Name Role Phone Elyse Pinto APRN, CNP Primary Care Provid er Olivia Mcguire MD Unavailable [phone] Reason for Referral * Radiology Services (Routine) - Authorized Specialty Diagnoses / Procedures Referred By Contbouchra t Referred To Contact Radiology Diagnoses Abnormal mammogram Procedures KATALINA DIAG BILATERAL DIGITAL W CAD W [place] Elyse Pinto APRN, CNP [address] [address] Phone: tel: fax: Referral ID Status Reason Start Date Expiration Date V isits Requested Visits Authorized [id number] Authorized 12/18/2024 1 1 * Radiology Services (Routine) - Open Specialty Diagnoses / Procedures Referred By Naya saldana Referred To Contact Radiology Diagnoses Abnormal mammogram Procedures KATALINA US BREAST LIMITED JOSE Elyse Pinto APRN, CNP #[address] [address] Phone: tel: fax: Referral ID Status Reason Start Date Expiration Date Visits Re quested Visits Authorized [id number] Open 12/18/2024 1 1 Encounter Details Date Type Department Care Team (Late st Contact Info) Description 12/18/2024 Transcribe Orders [facility] Mammography [address] [place] [address] Elyse Pinto APRN, KHOA #[address] [facility] [address] [place] [address] Abnormal mammogram (Primary Dx) Social History Tobacco Use Types Packs/Day Years Used Date Smoking Tobacco: Former Cigarettes 1.5 30 1 - 04/08/2015 Smokeless Tobacco: Never Alcohol Use Standard Drinks/Week Comments Not Currently 0 (1 standard drink = 0.6 oz pur e alcohol) [facility] Utilities Answer Date Recorded In the past 12 months has [employer], gas, oil, or water [employer] threatened to shut off services in your home? No 08/14/2023 Social Connection and Isolation Panel Answer Date Recorded In a typical week, how many times do you talk on the phone with family, friends, or neighbors? More than three times a week 08/14/2023 How often do you get togethe r with friends or relatives? Never 08/14/2023 How often do you attend [facility] ch or druze services? Never 08/14/2023 Do you belong to any clubs o r organizations such as shinto groups, unions, fraternal or athletic groups, or [...] Total Score - Questions 1-9 0 09/2024 [facility] of Occupat ional Health - Occupational Stress [...] documented as of this encounter Care Teams Computer Hardware Developer Relationship Specialty Start Date End Date Elyse Pinto APRN, CNP #2 [facility] [address] [place] [address] PCP - General Advanced Practice Nurse 09/19/21 Olivia Mcguire MD #2 [facility] [address] [place] [address] Consulting Physician Urology 04/04/24 documented as of this encounter
--- OUTSIDE RECORDS SUMMARY | 2025-03-28 16:01 | XMS_ITS | Encounter Summary ---
Author Organization [facility] Address [address] [facility] [place] [address] Phone Care Team Providers Care Editor In Chief Name Role Phone Elyse Pinto APRN, CNP Primary Care Provid er Olivia Mcguire MD Unavailable [phone] Reason for Visit * Reason Comments Medication Refill Encounter Details Date Type Department Care Team (Late st Contact Info) Description 11/07/2021 Refill [facility] [address] [place] [address] Elyse Pinto APRN, CNP [address] [address] Medication Refill Social History Tobacco [...] type documented in this encounter Care Teams Editor In Chief Relationship Specialty Start Date End Date Elyse Pinto APRN, CNP #2 [facility] [address] [place] [id number] PCP - General Advanced Practice Nurse 09/19/21 Olivia Mcguire MD #2 [facility] [address] [place] [address] Consulting Physician Urology 04/04/24 documented as of this encounter
--- OUTSIDE RECORDS SUMMARY | 2025-03-28 16:01 | XMS_ITS | Encounter Summary ---
Author Organization [facility] Address [address] [place] [address] Phone Care Team Providers Care Product/Industry Consultant Name Role Phone Elyse Pinto APRN, CNP Primary Care Provid er Olivia Mcguire MD Unavailable [phone] Reason for Visit * Reason Comments Medication Refill Encounter Details Date Type Department Care Team (Late st Contact Info) Description 05/01/2023 Refill [facility] [address] [place] [address] Elyse Pinto APRN, CNP #[address] [address] Medication Refill Social History Tobacco [...] CNP - 05/01/2023 3:35 PM CDT [place] THERAPEUTIC RADIOLOGIST reviewed, approved * Telephone Encounter - Ghislaine [...] unspecified documented in this encounter Care Teams Product/Industry Consultant Relationship Specialty Start Date End Date Elyse Pinto APRN, CNP #[address] [address] PCP - General Advanced Practice Nurse 09/19/21 Olivia Mcguire MD #2 [place] [address] Consulting Physician Urology 04/04/24 documented as of this encounter
--- OUTSIDE RECORDS SUMMARY | 2025-03-28 16:01 | XMS_ITS | Encounter Summary ---
Author Organization [facility] Address [address] [place] [address] Phone Care Team Providers Care Heating Element Repairer Name Role Phone Elyse Pinto APRN, CNP Primary Care Provid er Olivia Mcguire MD Unavailable [phone] Reason for Visit * Reason Comments Medication Refill Encounter Details Date Type Department Care Team (Late st Contact Info) Description 07/31/2023 Refill [facility] #2 [place] [address] Elyse Pinto APRN, CNP #[address] [address] Medication Refill Social History Tobacco [...] Pinto APRN, CNP - 07/31/2023 6:50 PM BARREL HEADER [place] MOTOR RUNNER reviewed approved EL HEADER * Telephone Encounter - Ghislaine Orozco RN [...] 90 days and meeting all other requirements EL HEADER documented in this encounter Plan of Treatment Not on file documented as of this encounter Visit Diagnoses Diagnosis Anxiety Anxiety state, unspecified documented in this encounter Care Teams Heating Element Repairer Relationship Specialty Start Date End Date Elyse Pinto APRN, CNP #2 [address] [facility] [address] [place] [address] PCP - General Advanced Practice Nurse 09/19/21 Olivia Mcguire MD #[address] [address] Consulting Physician Urology 04/04/24 documented as of this encounter
--- OUTSIDE RECORDS SUMMARY | 2025-03-28 16:01 | XMS_ITS | Encounter Summary ---
Author Organization [facility] Address [address] [place] [address] Phone Care Team Providers Care Crude Tester Name Role Phone Elyse Pinto APRN, CNP Primary Care Provid er Olivia Mcguire MD Unavailable [phone] Reason for Visit * Reason Comments Medication Refill Encounter Details Date Type Department Care Team (Late st Contact Info) Description 06/25/2023 Refill [facility] #2 [place] [address] Elyse Pinto APRN, CNP #[address] [address] Medication Refill Social History Tobacco [...] Pinto APRN, CNP - 06/26/2023 3:13 PM BILINGUAL BRANCH MANAGER [place] STERILE PREPARATION TECHNICIAN reviewed, UDS compliant, approved NGUAL BRANCH MANAGER * Telephone Encounter - Ghislaine Orozco RN [...] 90 days and meeting all other requirements NGUAL BRANCH MANAGER documented in this encounter Plan of Treatment Not on file documented as of this encounter Visit Diagnoses Diagnosis Anxiety Anxiety state, unspecified documented in this encounter Care Teams Crude Tester Relationship Specialty Start Date End Date Elyse Pinto APRN, CNP #[address] [place] [address] PCP - General Advanced Practice Nurse 09/19/21 Olivia Mcguire MD #[address] [address] Consulting Physician Urology 04/04/24 documented as of this encounter
--- OUTSIDE RECORDS SUMMARY | 2025-03-28 16:01 | XMS_ITS | Encounter Summary ---
Author Organization [facility] Address [address] [place] [address] Phone Care Team Providers Care Field Operations Technician Name Role Phone Elyse Pinto APRN, CNP Primary Care Provid er Olivia Mcguire MD Unavailable [phone] Reason for Visit * Reason Comments Medication Refill Encounter Details Date Type Department Care Team (Late st Contact Info) Description 06/10/2023 Refill [facility] #2 [place] [address] Elyse Pinto APRN, CNP #[address] [address] Medication Refill Social History Tobacco [...] 90 Each Elyse Pinto APRN, KHOA [id number]- ... [place] SR 180 MG CAPSULE 02/16/2023 90 90 Each Elyse Pinto APRN, CNP [id number]- ... [place] FIRMWARE ENGINEER documented in this encounter Plan of Treatment Not on file documented as of this encounter Visit Diagnoses Diagnosis Primary hypertension Unspecified essential hypertension documented in this encounter Care Teams Field Operations Technician Relationship Specialty Start Date End Date Elyse Pinto APRN, CNP #2 [address] [facility] [address] [place] [address] PCP - General Advanced Practice Nurse 09/19/21 Olivia Mcguire MD #2 [address] [facility] [address] [place] [address] Consulting Physician Urology 04/04/24 documented as of this encounter
--- OUTSIDE RECORDS SUMMARY | 2025-03-28 16:01 | XMS_ITS | Encounter Summary ---
Author Organization [facility] Address [address] [place] [address] [facility] [place] [address] Phone Care Team Providers Care Counter Control Operator Name Role Phone Elyse Pinto APRN, CNP Primary Care Provid er Olivia Mcguire MD Unavailable [phone] Reason for Visit * Reason Comments Medication Refill Encounter Details Date Type Department Care Team (Late st Contact Info) Description 02/01/2023 Refill [facility] #2 [place] [address] Elyse Pinto APRN, CNP #[address] [address] Medication Refill Social History Tobacco [...] type documented in this encounter Care Teams Counter Control Operator Relationship Specialty Start Date End Date Elyse Pinto APRN, CNP [facility]2 [facility] [address] [place] [address] PCP - General Advanced Practice Nurse 09/19/21 Olivia Mcguire MD #2 [facility] [facility] [address] [place] [address] Consulting Physician Urology 04/04/24 documented as of this encounter
--- OUTSIDE RECORDS SUMMARY | 2025-03-28 16:01 | XMS_ITS | Encounter Summary ---
Author Organization [facility] Address [address] [place] [address] Phone Care Team Providers Care Particleboard Factory Worker Name Role Phone Elyse Pinto APRN, CNP Primary Care Provid er Olivia Mcguire MD Unavailable [phone] Reason for Visit * Reason Comments Medication Refill Encounter Details Date Type Department Care Team (Late st Contact Info) Description 09/11/2022 Refill [facility] #2 [place] [address] Joseph Gordon MD #[address] [address] Medication Refill Social History Tobacco Use Types [...] Pinto APRN, CNP - 09/13/2022 12:12 AM CODE INSPECTOR [place] DEMAND PLANNER, UDS reviewed. Approved INSPECTOR * Telephone Encounter - Ghislaine Orozco RN [...] Date Type Provider Dept 05/26/22 Office Visit Eylse Pinto APRN, CNP [facility] 12/23/21 Office Visit Elyse Pinto APRN, CNP [facility] 09/19/21 Office Visit Elyse Pinto APRN, CNP [facility] Showing recent visits within past 365 days and meeting all other requirements Future Appointments Date Type Provider Dept 09/25/22 Appointment Elyse Pinto APRN, CNP [facility] Showing future appointments within next 90 days and meeting all other requirements INSPECTOR documented in this encounter Plan of Treatment Not on file documented as of this encounter Visit Diagnoses Diagnosis Anxiety Anxiety state, unspecified documented in this encounter Care Teams Particleboard Factory Worker Relationship Specialty Start Date End Date Elyes Pinto APRN, CNP #2 [facility] [address] [place] [address] PCP - General Advanced Practice Nurse 09/19/21 Olivia Mcguire MD #2 FAN[address] [facility] [address] [place] [address] Consulting Physician Urology 04/04/24 documented as of this encounter
--- OUTSIDE RECORDS SUMMARY | 2025-03-28 16:01 | XMS_ITS | Encounter Summary ---
Author Organization [facility] Address [address] [place] [address] Phone Care Team Providers Care Clamp Remover Name Role Phone Elyse Pinto APRN, CNP Primary Care Provid er Olivia Mcguire MD Unavailable [phone] Reason for Visit * Reason Comments Medication Refill Encounter Details Date Type Department Care Team (Late st Contact Info) Description 01/12/2023 Refill [facility] #2 [place] [address] Elyse Pinto APRN, CNP #[address] [address] Medication Refill Social History Tobacco [...] CNP - 01/15/2023 8:05 AM CDT [place] CHAIR INSPECTOR reviewed, UDS compliant approved * Telephone Encounter [...] unspecified documented in this encounter Care Teams Clamp Remover Relationship Specialty Start Date End Date Elyse Pinto APRN, CNP #2 [address] CARIAS [facility] [address] [place] [address] PCP - General Advanced Practice Nurse 09/19/21 Olivia Mcguire MD #2 [address] [facility] [address] [place] [address] Consulting Physician Urology 04/04/24 documented as of this encounter
--- OUTSIDE RECORDS SUMMARY | 2025-03-28 16:01 | XMS_ITS | Encounter Summary ---
Author Organization [facility] Address [address] [facility] [place] [address] Phone Care Team Providers Care Substation Manager Name Role Phone Elyse Pinto APRN, CNP Primary Care Provid er Olivia Mcguire MD Unavailable [phone] Reason for Visit * Reason Comments Medication Refill Encounter Details Date Type Department Care Team (Late st Contact Info) Description 03/20/2022 Refill [facility] #2 [place] [address] Elyse Pinto APRN, CNP #[address] [address] Medication Refill Social History Tobacco [...] CNP - 03/21/2022 7:26 AM CDT [place] SHORT FILLER BUNCH MACHINE OPERATOR reviewed, UDS UTD. Approved * Telephone Encounter [...] unspecified documented in this encounter Care Teams Substation Manager Relationship Specialty Start Date End Date Elyse Pinto APRN, CNP #2 [facility] [address] [place] [address] PCP - General Advanced Practice Nurse 09/19/21 Olivia Mcguire MD #2 FAN[address] [facility] [address] [place] [address] Consulting Physician Urology 04/04/24 documented as of this encounter
--- OUTSIDE RECORDS SUMMARY | 2025-03-28 16:01 | XMS_ITS ---
Author Organization [facility] Address [address] [facility] [place] [address] Care Team Providers Care Solo Truck Driver Name Role Phone Elyse Pinto GARNETT FIXER-WIND TURBINE ERECTOR Primary Care Provide r Active Problems Problem [...] 35 cycles started Radiation Treatments * Course [id number] 10/15/2024 - 11/28/2024 Treatment Period Energy Fraction Dose Fractions Total Dose Plans Planned [id number] 11/27/2024 - 11/28/2024 2 / 2 400 cGy [id number] 11/19/2024 - 11/26/2024 5 / 5 1,000 cGy Pelvis 50Gy 10/15/2024 - 11/18/2024 25 / 25 5,000 cGy Reference Points Delivered PTV_65 11/27/2024 - 11/28/2024 400 cGy PTV_64 11/19/2024 - 11/26/2024 1,000 cGy PTV_50 10/15/2024 - 11/18/2024 5,000 cGy
--- OUTSIDE RECORDS SUMMARY | 2025-03-28 16:01 | XMS_ITS | Encounter Summary ---
Author Organization [facility] Address [address] [place] [address] Phone Care Team Providers Care Market Development Director Name Role Phone Elyse Pinto APRN, CNP Primary Care Provid er Olivia Mcguire MD Unavailable [phone] Reason for Visit * Reason Comments Medication Refill Encounter Details Date Type Department Care Team (Late st Contact Info) Description 02/16/2022 Refill [facility] #2 [place] [address] Elyse Pinto APRN, CNP #[address] [address] Medication Refill Social History Tobacco [...] CNP - 02/17/2022 8:49 AM CDT [place] GEOPHYSICAL DRAFTER reviewed, UDS UTD, approved * Telephone Encounter [...] unspecified documented in this encounter Care Teams Market Development Director Relationship Specialty Start Date End Date Elyse Pinto APRN, CNP #2 [facility] [address] [place] [address] PCP - General Advanced Practice Nurse 09/19/21 Olivia Mcguire MD #2 FAN[address] [facility] [address] [place] [address] Consulting Physician Urology 04/04/24 documented as of this encounter
--- OUTSIDE RECORDS SUMMARY | 2025-03-28 16:01 | XMS_ITS | Encounter Summary ---
Author Organization [facility] Address [address] [facility] [place] [address] Care Team Providers Care Plastic Production Machine Setter Name Role Phone Elyse Pinto AUTOMOBILE RELOCATION ENGINEER-KIER HAND Primary Care Provide r Encounter Details Date Type Department Care Team (Late st Contact Info) Description 05/19/2024 Telephone [facility] [address] [facility] [address] [place] [address] Earlene Mckeon MD [address] [facility] [address] [place], [place] [id number] Social History Tobacco Use Types Packs/Day Years [...] Info) Description 03/30/2025 9:30 AM CDT Appointment [facility] - PET Scan [address] [facility] [address] [place] [address] Earlene Mckeon MD [address] [facility] [address] [place] [address] 04/02/2025 9:30 AM CDT Clinical Support [facility] - INSERT OPERATOR [address] [facility] [address] [place] [phone] Earlene Mckeon MD [address] [facility] [address] [place] [address] 04/02/2025 10:20 AM CDT Appointment [facility] [address] [facility] [address] [place] [address] Earlene Mckeon MD [address] [facility] [address] [place] [address] documented as of this encounter Visit Diagnoses Not on filedocumented in this encounter Care Teams Plastic Production Machine Setter Relationship Specialty Start Date End Date Elyse Pinto APRN-KHOA [address] [phone] PCP - General Nurse Practitioner 04/17/24 documented as of this encounter
--- OUTSIDE RECORDS SUMMARY | 2025-03-28 16:01 | XMS_ITS | Encounter Summary ---
Author Organization [facility] Address [address] [facility] [place] [address] Phone Care Team Providers Care Fundraising Specialist Name Role Phone Elyse Pinto APRN, CNP Primary Care Provid er Olivia Mcguire MD Unavailable [phone] Reason for Visit * Reason Comments Medication Refill Encounter Details Date Type Department Care Team (Late st Contact Info) Description 01/16/2022 Refill [facility] - Family Medicine [facility] #2 [place] [address] Elyse Pinto APRN, CNP #[address] [address] Medication Refill Social History Tobacco [...] CNP - 01/17/2022 1:26 PM CDT [place] SUPERVISOR ASSEMBLY ROOM reviewed, UDS UTD. Approved * Telephone Encounter [...] 09/19/21 Office Visit [facility] Show[facility] recent visits within past 365 days and meeting all other requirements Future Appointments No visits were found meeting these conditions. Showing future appointments within next 90 days and meeting all other requirements documented in this encounter Plan of Treatment Not on file documented as of this encounter Visit Diagnoses Diagnosis Anxiety Anxiety state, unspecified documented in this encounter Care Teams Fundraising Specialist Relationship Specialty Start Date End Date Elyse Pinto APRN, CNP #[address] [address] PCP - General Advanced Practice Nurse 09/19/21 Olivia Mcguire MD #2 FAN[address] CARIAS, [address] [address] Consulting Physician Urology 04/04/24 documented as of this encounter
--- OUTSIDE RECORDS SUMMARY | 2025-03-28 16:01 | XMS_ITS | Encounter Summary ---
Author Organization [facility] Address [address] [place] [address] Phone Care Team Providers Care Antichecking Iron Worker Name Role Phone Elyse Pinto APRN, CNP Primary Care Provid er Olivia Mcguire MD Unavailable [phone] Reason for Visit * Reason Comments Medication Refill Encounter Details Date Type Department Care Team (Late st Contact Info) Description 08/16/2022 Refill [facility] Medicine [facility] #2 [place] [address] Elyse Pinto APRN, CNP #[address] [address] Medication Refill Social History Tobacco [...] Jennifer Bai RN - 08/16/2022 10:48 AM PULP DRIER PDMP 07/11/2022 #90 Medication failed the protocol, [...] 90 days and meeting all other requirements DRIER documented in this encounter Plan of Treatment Not on file documented as of this encounter Visit Diagnoses Diagnosis Anxiety Anxiety state, unspecified documented in this encounter Care Teams Antichecking Iron Worker Relationship Specialty Start Date End Date Elyse Pinto APRN, CNP #2 [facility] [address] [place] [address] PCP - General Advanced Practice Nurse 09/19/21 Olivia Mcguire MD #[address] [facility] [address] [place] [address] Consulting Physician Urology 04/04/24 documented as of this encounter
--- OUTSIDE RECORDS SUMMARY | 2025-03-28 16:01 | XMS_ITS | Encounter Summary ---
Author Organization [facility] Address [address] [place] [address] Phone Care Team Providers Care Tire Manager Name Role Phone Elyse Pinto APRN, CNP Primary Care Provid er Olivia Mcguire MD Unavailable [phone] Reason for Visit * Reason Comments Medication Refill Encounter Details Date Type Department Care Team (Late st Contact Info) Description 09/01/2024 Refill [facility] - Family Medicine [facility] #2 [place] [address] Tonny Fuentes APRN, KHOA #[address] [address] Medication Refill Social History Tobacco Use Types Packs/Day Years Used Date Smoking Tobacco: Former Cigarettes 1.5 30 1 - 04/08/2015 Smokeless Tobacco: Never Alcohol Use Standard Drinks/Week Comments Not Currently 0 (1 standard drink = 0.6 oz pur e alcohol) [facility] Utilities Answer Date Recorded In the past 12 months has [employer] electric, gas, oil, or water company threatened [...] often do you attend chur ch or gnosticist services? Never 08/14/2023 Do you belong to any clubs o r organizations such as synagogue groups, unions, fraternal or athletic groups, or [...] Total Score - Questions 1-9 0 03/09 [facility] of Occupat ional Health - Occupational Stress [...] 30.6 g Tonny Fuentes APRN, CNP [id number] - ... DAIRY CATTLE FARMER documented in this encounter Plan of Treatment Not on file documented as of this encounter Visit Diagnoses Diagnosis Chronic obstructive pulmonary disease, unspecified COPD type documented in this encounter Additional Health Concerns Assessment Noted Time PHQ-9 Depression Total Score: 0 03/26/20 24 1:20 PM CDT documented as of this encounter Care Teams Tire Manager Relationship Specialty Start Date End Date Elyse Pinto APRN, HAIR AND MAKEUP DESIGNER #[address] [address] PCP - General Advanced Practice Nurse 09/19/21 Olivia Mcguire MD #[address] [address] Consulting Physician Urology 04/04/24 documented as of this encounter
--- OUTSIDE RECORDS SUMMARY | 2025-03-28 16:01 | XMS_ITS | Encounter Summary ---
Author Organization [facility] Address [address] [facility] [place] [address] Phone Care Team Providers Care Server Programmer Name Role Phone Elyse Pinto APRN, CNP Primary Care Provid er Olivia Mcguire MD Unavailable [phone] Reason for Visit * Reason Comments Medication Refill Encounter Details Date Type Department Care Team (Late st Contact Info) Description 12/14/2022 Refill [facility] #2 [place] [address] Elyse Pinto APRN, CNP #[address] [address] Medication Refill Social History Tobacco [...] CNP - 12/14/2022 5:22 PM CDT [place] SUCCESS COACH reviewed, approved. * Telephone Encounter - Ghisaline Orozco RN - 12/14/2022 12:06 PM CDT [...] unspecified documented in this encounter Care Teams Server Programmer Relationship Specialty Start Date End Date Elyse Pinto APRN, CNP #2 [address] [facility] [address] [place] [address] PCP - General Advanced Practice Nurse 09/19/21 Olivia Mcguire MD #2 [address] [address] Consulting Physician Urology 04/04/24 documented as of this encounter
--- OUTSIDE RECORDS SUMMARY | 2025-03-28 16:01 | XMS_ITS | Encounter Summary ---
Author Organization [facility] Address [address] [place] [address] [place] [address] Phone Care Team Providers Care Folded Towel Machine Operator Name Role Phone Elyse Pinto APRN, KHOA Primary Care Provid er Olivia Mcguire MD Unavailable [phone] Reason for Visit * Reason Comments Medication Refill Encounter Details Date Type Department Care Team (Late st Contact Info) Description 10/02/2022 Refill [facility] #2 [place] [address] Joseph Gordon MD #[address] [address] Medication Refill Social History Tobacco Use Types [...] type documented in this encounter Care Teams Folded Towel Machine Operator Relationship Specialty Start Date End Date Elyse Pinto APRN, CNP #[address] [address] PCP - General Advanced Practice Nurse 09/19/21 Olivia Mcguire MD #[address] [address] Consulting Physician Urology 04/04/24 documented as of this encounter
--- OUTSIDE RECORDS SUMMARY | 2025-03-28 16:01 | XMS_ITS | Encounter Summary ---
Author Organization [facility] Address [address] [facility] [place] [address] Phone Care Team Providers Care Childcare Attendant Name Role Phone Elyse iPnto APRN, CNP Primary Care Provid er Olivia Mcguire MD Unavailable [phone] Reason for Visit * Reason Comments Medication Refill Encounter Details Date Type Department Care Team (Late st Contact Info) Description 06/14/2022 Refill [facility] - Family Medicine [facility] #2 [place] [address] Elyse Pinto APRN, CNP #[address] [address] Medication Refill Social History Tobacco [...] Coronavirus/COVID-19? No / Unsure 05/26/2022 11:23 AM GRAPHIC DESIGN PROFESSOR documented as of this encounter Miscellaneous Notes [...] 09/19/21 Office Visit Elyse Pinto APRN, CNP [facility] [place] Showing recent visits within past 365 days and meeting all other requirements Future Appointments No visits were found meeting these conditions. Showing future appointments within next 90 days and meeting all other requirements HIC DESIGN PROFESSOR documented in this encounter Plan of Treatment Not on file documented as of this encounter Visit Diagnoses Diagnosis Anxiety Anxiety state, unspecified documented in this encounter Care Teams Childcare Attendant Relationship Specialty Start Date End Date Elyse Pinto APRN, CNP #2 [facility] [address] [place] [address] PCP - General Advanced Practice Nurse 09/19/21 Olivia Mcguire MD #2 [facility] [address] [place] [address] Consulting Physician Urology 04/04/24 documented as of this encounter
--- OUTSIDE RECORDS SUMMARY | 2025-03-28 16:01 | XMS_ITS | Encounter Summary ---
Author Organization [facility] Address [address] [place] [address] Care Team Providers Care News Reel Cameraman Name Role Phone Elyse Pinto IT SUPPORT ANALYST-PREPRESS SUPERVISOR Primary Care Provide r Reason for Visit * Reason Onset Date Comments Establish Care 04/14/2024 Encounter Details Date Type Department Care Team (Late st Contact Info) Description 04/14/2024 Telephone [facility] - Centralized Scheduling [address] [place] [phone] Earlene Mckeon MD [address] [id number] Establish Care Social History Tobacco Use Types [...] follow the workflow below for all NEW FRONT DESK HOST/ONC patient calls. Surveyor the patient. If they are not in system, it is MANDATORY that you register them completely including insurance. Gather and document all the information listed below from the caller Referring provider: Dr. Olivia Santana Diagnosis: Vaginal mass Requesting appointment with : Mike field contact person at referring provider's office: office phone [phone] Who should be contacted for scheduling (ie self, family member, guardian, etc.): self Best contact number for scheduling: [phone] Ask for records to be faxed to [phone] that same day. If the referring provider is an [facility] provider and their records are already viewable in [employer], do NOT ask for them to be faxed. Inform the caller you are forwarding this information to the FRONT DESK HOST/ONC New Patient Intake Coordinatorfor review and someone [...] day, and then transfer the call to [phone]. Forward this encounter to the [facility] FRONT DESK HOST ONC NEW PATIENTS pool ([id number]). ATTENTION FRONT DESK HOST/ONC NEW PATIENT ROVING TESTER LABORATORY or FOOD SERVICE COUNTER CLERK OFFICE STAFF SCHEDULING THE NEW PATIENT APPOINTMENT: Please follow the workflow below for all NEW FRONT DESK HOST/ONC patient scheduling. Reach out to the designated personnel consultant listed above at the number provided. Assist [...] marked high priority and forwarded to the FRONT DESK HOST/ONC work car operator after scheduling the NEW appointment and an RN will contact the patient. documented in this encounter Plan of Treatment Upcoming Encounters Date Type Department Care Team (Late st Contact Info) Description 03/30/2025 9:30 AM CDT Appointment [facility] - PET Scan [address] [place] [address] [address] [place] [address] [place] [address] [place], [place] [id number] 04/02/2025 9:30 AM CDT Clinical Support [facility] - FOOD SERVICE COUNTER CLERK [address] [facility] [address] [place] [phone] Earlene Mckeon MD [address] [place], [place] [phone] 04/02/2025 10:20 AM CDT Appointment [facility] [address] [facility] [address] [place] [address] Earlene Mckeon MD [address] [place] [id number] documented as of this encounter Visit Diagnoses Not on filedocumented in this encounter Care Teams News Reel Cameraman Relationship Specialty Start Date End Date Elyse Pinto APRN-KHOA [address] [phone] PCP - General Nurse Practitioner 04/17/24 documented as of this encounter
--- OUTSIDE RECORDS SUMMARY | 2025-03-28 16:01 | XMS_ITS | Encounter Summary ---
Author Organization [facility] Address [address] [place] [address] Phone Care Team Providers Care Digital Photographer Name Role Phone Elyse Pinto APRN, CNP Primary Care Provid er Olivia Mcguire MD Unavailable [phone] Reason for Visit * Reason Comments Medication Refill Encounter Details Date Type Department Care Team (Late st Contact Info) Description 05/21/2023 [facility]ill [facility] [address] [place] [address] Elyse Pinto APRN, CNP #[address] [address] Medication Refill Social History Tobacco [...] [place] 09/29/22 Office Visit Elyse Pinto APRN, [facility] 05/26/22 Office Visit Elyse Pinto APRN, [facility] Showing recent visits within past 365 days and meeting all other requirements Future Appointments Date Type Provider Dept 06/14/23 Appointment Elyse Pinto APRN, CNP [facility] Showing future appointments within next 90 days and meeting all other requirements ATOR SPECIALIST documented in this encounter Plan of Treatment Not on file documented as of this encounter Visit Diagnoses Diagnosis Chronic obstructive pulmonary disease, unspecified COPD type documented in this encounter Care Teams Digital Photographer Relationship Specialty Start Date End Date Elyse Pinto APRN, DEBIT AGENT #2 [facility] [address] [place] [phone] PCP - General Advanced Practice Nurse 09/19/21 Olivia Mcguire MD #2 [facility] [address] [place] [address] Consulting Physician Urology 04/04/24 documented as of this encounter
--- OUTSIDE RECORDS SUMMARY | 2025-03-28 16:01 | XMS_ITS | Encounter Summary ---
Author Organization [facility] Address [address] [place] [address] Phone Care Team Providers Care Whipped Topping Mixer Name Role Phone Elyse Pinto APRN, CNP Primary Care Provid er Olivia Mcguire MD Unavailable [phone] Reason for Visit * Reason Comments Medication Refill Encounter Details Date Type Department Care Team (Late st Contact Info) Description 06/19/2024 Refill [facility] - Family Medicine [facility] [address] [place] [address] Elyse Pinto APRN, CNP #[address] [address] Medication Refill Social History Tobacco Use Types Packs/Day Years Used Date Smoking Tobacco: Former Cigarettes 1.5 30 1 - 04/08/2015 Smokeless Tobacco: Never Alcohol Use Standard Drinks/Week Comments Not Currently 0 (1 standard drink = 0.6 oz pur e alcohol) [facility] Utilities Answer Date Recorded In the past 12 months has [employer], gas, oil, or water company threatened [...] often do you attend chur ch or zoroastrian services? Never 08/14/2023 Do you belong to any clubs o r organizations such as orthodox groups, unions, fraternal or athletic groups, or [...] Total Score - Questions 1-9 0 03/09 [facility] of Occupat ional [facility] - Occupational Stress Questionnaire Answer Date Recorded [...] place to sleep or slept in a halfway (including now)? No 08/14/2023 Education Answer Date [...] 16 18 g Elyse Pinto APRN, CNP [facility]/pharmacy #[id number] -... ALBUTEROL HFA 90 MCG INHALER 05/23/2024 16 18 g Elyse Pinto APRN [facility][id number] -... ALBUTEROL HFA 90 MCG INHALER 04/29/2024 16 18 g Elyse Pinto APRN, CNP [facility] #[id number] -... ALBUTEROL HFA 90 MCG INHALER 04/15/2024 16 18 g Elyse Pinto APRN [facility]/pharmacy #[id number] -... ALBUTEROL HFA 90 MCG INHALER 03/26/2024 16 18 g Elyse Pinto APRN [facility] #[id number] -... ALBUTEROL HFA 90 MCG INHALER 03/03/2024 16 18 g Elyse Pinto APRN, K[facility][id number] -.. Refill too soon - should not be using 6 large inhalers in 3 months. ICATION DESIGN ENGINEER documented in this encounter Plan of Treatment Not on file documented as of this encounter Visit Diagnoses Diagnosis Chronic obstructive pulmonary disease, unspecified COPD type documented in this encounter Additional Health Concerns Assessment Noted Time PHQ-9 Depression Total Score: 0 03/26/20 24 1:20 PM CDT documented as of this encounter Care Teams Whipped Topping Mixer Relationship Specialty Start Date End Date Elyse Pinto APRN, KHOA #2 [facility] [address] [place] [address] PCP - General Advanced Practice Nurse 09/19/21 Olivia Mcguire MD #[address] [facility] [address] [place] [address] Consulting Physician Urology 04/04/24 documented as of this encounter
--- OUTSIDE RECORDS SUMMARY | 2025-03-28 16:01 | XMS_ITS | Clinical Summary ---
Author Organization [facility] Address [address] [place] [address] Phone Care Team Providers Care Building Services Engineer Name Role Phone Elyse Pinto APRN, KHOA Primary Care Provid er Olivia Mcguire MD Unavailable [phone] Allergies Active Allergy Reactions Criticality Noted Date Comments Bupropion Other (see Comments) 09/19/2021 Suicidal thoughts Medications montelukast (SINGULAIR) 10 MG TabletIndications :Chronic obstructive pulmonary disease, unspecified COPD type TAKE 1 TABLET BY MOUTH EVERY DAY IN THE EVENING 90 Tablet 1 09/02/19 25 Active ergocalciferol (VITAMIN D) 25623 UNIT Capsule Take 50,000 Units by mouth. [...] Type Department Care Team Description [facility] [place] [address] Elyse Pinto APRN, CNP Medication Refill 01/21/2025 [facility] [place] [address] Elyse Pinto APRN, KHOA Medication Refill from Last 3 Months Immunizations Immunization Administration Dates Next Due Influenza Vaccine, Quadrivalent, PF 12/2023,05/26/2022,03/25/2019,03/13,05/31/2014 Influenza, Seasonal, Injecta ble, Undefined 05/13/2013 Influenza,Split Virus,Trivalent,Injectable,PF 03/26/2024 Pneumococcal Vaccine Adult - 23 Valent 4 Pneumococcal conjugate PCV20 , polysaccharide XNY090 conjugate, adjuvant, PF 05/26/2022 Family History Medical [...] drink = 0.6 oz pur e alcohol) [facility] [employer] Answer Date Recorded In the past 12 months has [employer], [employer], oil, or water [employer] threatened to shut off services in your home? No 08/14/2023 Social Connection and Isolation Panel Answer Date Recorded In a typical week, how many times do you talk on the phone with family, friends, or neighbors? More than three times a week 08/14/2023 How often do you get togethe r with friends or relatives? Never 08/14/2023 How often do you attend [facility] or mormonism services? Never 08/14/2023 Do you belong to any clubs o r organizations such as roman catholic groups, unions, fraternal or athletic groups, or [...] Total Score - Questions 1-9 0 09/2024 [facility] Occupat ional Health - Occupational [...] [place] Stat with Interpretation 07/11/2024 11:06 AM OVERLAY PLASTICIAN Abnormal positron emission tomography (PET) scan Squamous cell carcinoma of vagina (HCC) from Last 3 Months or Most Recently Relevant to Health Maintenance Results * KATALINA DIAG BILATERAL DIGITAL W CAD W [place] (07/11/2024 11:06 AM OVERLAY PLASTICIAN) Anatomical Region Laterality Modality breast Bilateral Mammography 07/11/2024 10:0 6 AM OVERLAY PLASTICIAN Narrative 07/11/2024 1:28 PM OVERLAY PLASTICIAN - KATALINA DIAG BILATERAL DIGITAL W CAD W [place] - KATALINA US BREAST LIMITED JOSE BILATERAL DIGITAL DIAGNOSTIC MAMMOGRAM 3D/2D WITH CAD WITH MEDIOLATERAL OBLIQUE CRANIOCAUDAL AND TARGETED BILATERAL ULTRASOUND: 07/11/2024 The study was acquired using digital technology and interpreted from soft copy. Current study was also evaluated with [employer] version 7.2. 2D digital mammographic views, as well as 3D digital tomosynthesis were performed in the CC and MLO projections. CLINICAL: Abnormal finding on recent PET scan seen in medial left breast. Patient has no complaints. Personal history of vulvar cancer. Currently undergoing treatment. No family history of breast cancer. COMPARISONS: Comparison is made to exams dated: PET 04/28/2024 [facility], 07/26/2022, 01/19/2021 [facility], and 11/21/2013 [facility]. BREAST TISSUE:There are scattered areas of [...] signed by: Linnea Gill M.D. ab/:07/11/2024 12:14:01 Pheresis Nurse(s): [facility]; RT Barbara(R)(M), [facility] letter sent: Birad 3 Followup Reading location: [facility]: Category 3: Probably Benign [...] is made to exams dated: PET 04/28/2024 [facility], 07/26/2022, 01/19/2021 [facility], and 11/21/2013 [facility]. BREAST TISSUE:There are scattered areas of [...] signed by: Linnea Gill M.D. ab/:07/11/2024 12:14:01 Pheresis Nurse(s): Monique Weller, [facility]; RT Barbara(R)(M), [facility] letter sent: Toyin Maier Followup Reading location: [facility]: Category 3: Probably Benign Joseph Gordon MD IMG MAMMO ORDERABLES Final Re sult from Last 3 Months or Most Recently Relevant to Health Maintenance Insurance MEDICARE C [place] Care Teams Building Services Engineer Relationship Specialty Start Date End Date Elyse Pinto APRN, RELAY SHOP SUPERVISOR #2 [facility] [address] [place] [address] PCP - General Advanced Practice Nurse 09/19/21 Olivia Mcguire MD #2 [facility] [address] [place] [address] Consulting Physician Urology 04/04/24
--- OUTSIDE RECORDS SUMMARY | 2025-03-28 16:01 | XMS_ITS | Clinical Summary ---
Author Organization [facility] [employer] Address [address] [place] [address] Care Team Providers Care Dumper [employer] Name Role Phone Elyse Pinto INDUSTRIAL RELATIONS ANALYST-SUPERVISOR PR[employer] Primary Care Provide r Source Comments [facility] [employer],non-owned Affiliates and Associated Physician Practices is amultiple site organization consisting of ambulatory clinics and hospital sitesin [place], [place], [place] and [place]. This disclosure is being madepursuant to the Care Everywhere program and may not contain all information available regarding this patient. Last updated 18.[facility] [employer] Allergies Active Allergy Reactions Criticality Noted Date [...] Active vitamin D, ergocalciferol, (Drisdol) 1.25 MG (15652 UT) capsule Take 1 (one) capsule by [...] - 03/18/2025 11:59 PM T Hospital Encounter [facility] [address] [place] [address] Earlene Mckeon MD Discharge Disposition: Home or Self Care 03/18/2025 Orders Only [facility] - CASTING OPERATOR [address] [facility] [address] [place] [address] Earlene Mckeon MD 03/13/2025 Refill [facility] - CASTING OPERATOR [address] [facility] [address] [place] [address] Eralene Mckeon MD MEDICATION REFILL 03/02/2025 Refill [facility] - CASTING OPERATOR [address] [place] [address] Earlene Mckeon MD Refill Request 02/25/2025 10:10 AM CDT - 02/25/2025 11:59 PM CDT Hospital Encounter [facility] [address] [place] [address] Earlene Mckeon MD Discharge Disposition: Home or Self Care 02/25/2025 9:30 AM CDT Hospital Encounter [facility] - Radiation Oncology [address] [place] [address] Jackson Mcghee MD 02/25/2025 9:30 AM CDT Office Visit [facility] - Rad/Onc [address] [place] [address] Jackson Mcghee MD 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) ; Maintenance chemotherapy; History of therapeutic radiation; Lung nodule; Vulvar cancer, carcinoma (HCC) 01/29/2025 10:00 AM CDT - 01/29/2025 11:59 PM CDT Hospital Encounter [facility] [address] [address] Earlene Mckeon MD Discharge Disposition: Home or Self Care 01/29/2025 9:30 AM CDT Clinical Support [facility] - CASTING OPERATOR [address] [place] [address] [address] [place] [address] Earlene Mckeon MD 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) ; Maintenance chemotherapy 01/29/2025 Orders Only [facility] - CASTING OPERATOR [address] [place], [place] [address] [address] [place] [address] Earlene Mckeon MD 01/29/2025 Travel 01/21/2025 Refill [facility] - CASTING OPERATOR [address] [place] [address] [address] [place] [address] Earlene Mckeon MD Refill Request 01/14/2025 9:52 AM CDT - 01/14/2025 11:59 PM CDT Hospital Encounter [facility] [address] [facility] [address] [place] [address] Earlene Mckeon MD Discharge Disposition: Home or Self Care 01/14/2025 Orders Only [facility] - CASTING OPERATOR [address] [place] [address] [place] [phone] Jackson Ramirez MD 12/10/2024 8:30 AM CDT - 01/11/2025 11:59 PM CDT Hospital Encounter [facility] - Radiation Oncology [address] [place] [address] Jackson Mcghee MD Discharge Disposition: Home or [...] Recorded Patient Health Questionnaire-2 Score 0 03/18/2025 [facility] of Occupat ional Health - Occupational Stress [...] any time in the past 12 [facility], were you homeless or living in a chcf (including now)? No 12/05/2024 Comments No Sex [...] Info) Description 03/30/2025 9:30 AM CDT Appointment [facility] - PET Scan [address] [place] [address] [address] [place] [address] Earlene Mckeon MD [address] [facility] [address] [place] [address] 04/02/2025 9:30 AM CDT Clinical Support [facility] - CASTING OPERATOR [address] [facility] [address] [place] [phone] Earlene Mckeon MD [address] [address] 04/02/2025 10:20 AM CDT Appointment [facility] [address] [facility] 103 [place] [address] Earlene Mckeon MD [address] [address] Health Maintenance Due Date Last Done Comments [...] - 74 % 03/18/2025 12:49 PM CDT [facility] Lymphocyte % 4(L) 17 - 47 % 03/18/2025 12:49 PM CDT [facility] Monocyte % 2(L) 3 - 11 % 03/18/2025 12:49 PM CDT [facility] Metamyelocyte % 1(H) 0% % 12:49 PM CDT [facility] Myelocyte % 3(H) 0% % 03/18/2025 12:49 PM CDT [facility] Neutrophil Absolute 10.17(H) 1.60 - 7.50 x10E9/L 03/18/2025 12:49 PM CDT [facility] Lymphocyte Absolute 0.45(L) 1.00 - 4.40 x10E9/L 03/18/2025 12:49 PM CDT [facility] Monocyte Absolute 0.23 0.15 - 1.00 x10E9/L 03/18/2025 12:49 PM CDT [facility] RBC Morphology NORMAL 03/18/2025 12:49 PM CDT [facility] Blood BLOOD SPECIMEN / Unknown Venipuncture / Unknown 03/18/2025 12:18 PM CDT 03/18/2025 12:21 PM CDT us Earlene Mckeon MD LAB - HEMATOLOGY ORDERABLE S Final Result [facility] [address] [place], [place] [phone] * (ABNORMAL) CBC W AUTO DIFFERENTIAL (03/18/2025 12:18 PM CDT) Only the most recent of4 resultswithin the time period is included. WBC 11.3(H) 4.0 - 10.7 x10E9/L 03/18/2025 12:50 PM CDT [facility] RBC Count 3.25(L) 3.90 - 5.20 x10E12/L 03/18/2025 12:50 PM CDT [facility] Hemoglobin 10.2(L) 11.9 - 15.8 g/dL 03/18/2025 12:50 PM CDT [facility] Hematocrit 31.9(L) 34.8 - 46.1 % 03/18/2025 12:50 PM CDT [facility] MCV 98.2(H) 80.0 - 98.0 fL 03/18/2025 12:50 PM CDT [facility] MCH 31.4 26.7 - 33.6 pg 03/18/2025 12:50 PM CDT [facility] MCHC 32.0 31.7 - 36.3 g/dL 03/18/2025 12:50 PM CDT [facility] RDW-CV 17.5(H) 11.3 - 14.8 % 03/18/2025 12:50 PM CDT [facility] Platelet Count 159 150 - 420 x10E9/L 03/18/2025 12:50 PM CDT [facility] MPV 8.5 7.8 - 11.4 fL 03/18/2025 12:50 PM CDT [facility] NRBC 0.2(H) <=0.0 /100 WBC 03/18/2025 12:50 PM CDT [facility] Blood BLOOD SPECIMEN / Unknown Venipuncture / Unknown 03/18/2025 12:18 PM CDT 03/18/2025 12:21 PM CDT us Earlene Mckeon MD LAB - HEMATOLOGY ORDERABLE S Final Result [facility] [address] [place] [address] * (ABNORMAL) COMPREHENSIVE METABOLIC PANEL (03/18/2025 12:18 PM CDT) Only the most recent of4 resultswithin the time period is included. [facility] Glucose 79 70 - 99 mg/dL 03/18/2025 12:[address] [facility] Sodium 132(L) 136 - 145 mmol/L 03/18/2025 12:39 PM T [facility] Potassium 4.0 3.5 - 5.1 mmol/L 03/18/2025 12:39 PM T [facility] Chloride 100 98 - 107 mmol/L 03/18/2025 12:39 PM T [facility] CO2 28 22 - 29 mmol/L 03/18/2025 12:39 PM T [facility] Calcium 9.4 8.4 - 10.4 mg/dL 03/18/2025 12:[address] [facility] Anion Gap 4(L) 6 - 16 mmol/L 03/18/2025 12:39 PM T [facility] BUN 37(H) 7 - 26 mg/dL 03/18/2025 12:39 PM T [facility] Creatinine 0.96 0.57 - 1.11 mg/dL 03/18/2025 12:39 PM T [facility] Alkaline Phosphatase 64 40 - 150 U/L 03/18/2025 12:39 PM T [facility] ALT 38 6 - 57 U/L 03/18/2025 12:39 PM CDT [facility] AST 19 10 - 48 U/L 03/18/2025 12:39 PM CDT [facility] Protein Total 6.0(L) 6.4 - 8.3 gm/dL 03/18/2025 12:39 PM CDT [facility] Albumin 3.2 3.1 - 4.5 gm/dL 03/18/2025 12:39 PM CDT [facility] Bilirubin Total 0.6 0.2 - 1.2 mg/dL 03/18/2025 12:39 PM CDT [facility] eGFR by CKD-EPI 67(L) >=90 mL/min/1.7 3 m2 03/18/2025 12:39 PM CDT [facility] Comment:Estimated Glomerular Filtration Rate (eGFR) calculated using the CKD-EPI Creatinine Equation (2020), per the National Kidney Foundation and [place] Society of Nephrology recommendations. Blood BLOOD SPECIMEN / Unknown Venipuncture / Unknown 03/18/2025 12:18 PM CDT 03/18/2025 12:21 PM CDT Earlene Mckeon MD LAB - CHEMISTRY ORDERABLES Final Result [facility] [address] [place], [place] [id number] * MAGNESIUM BLOOD (03/18/2025 12:18 PM CDT) Only the most recent of4 resultswithin the time period is included. Magnesium 2.0 1.6 - 2.6 mg/dL 03/18/2025 12:39 PM CDT [facility] Blood BLOOD SPECIMEN / Unknown Venipuncture / Unknown 03/18/2025 12:18 PM CDT 03/18/2025 12:21 PM CDT Earlene Mckeon MD LAB - CHEMISTRY ORDERABLES Final Result Performing Organization Address City/[facility]/ZIP Co de Phone Number [facility] [address] [place] [phone] * TSH (03/18/2025 12:18 PM CDT) Only the most recent of4 resultswithin the time period is included. TSH 1.4675 0.35 - 4.94 uIU/mL 03/18/2025 12:58 PM CDT [facility] Blood BLOOD SPECIMEN / Unknown Venipuncture / Unknown 03/18/2025 12:18 PM CDT 03/18/2025 12:21 PM CDT Earlene Mckeon MD LAB - CHEMISTRY ORDERABLES Final Result Performing Organization Address [facility] de Phone Number [facility] [address] [place] [address] * T4 FREE (03/18/2025 12:18 PM CDT) Only the most recent of4 resultswithin the time period is included. T4 Free 1.05 0.70 - 1.50 ng/dL 03/18/2025 12:58 PM CDT [facility] Blood BLOOD SPECIMEN / Unknown Venipuncture / Unknown 03/18/2025 12:18 PM CDT 03/18/2025 12:21 PM CDT Earlene Mckeon MD LAB - CHEMISTRY ORDERABLES Final Result Performing Organization Address [facility] de Phone Number [facility] [address] [place] [address] * (ABNORMAL) CORTISOL BLOOD (03/18/2025 12:18 PM CDT) Only the most recent of4 resultswithin the time period is included. Cortisol 1.9(L) 2.9 - 19.4 ug/dL 03/18/2025 12:58 PM CDT [facility] Blood BLOOD SPECIMEN / Unknown Venipuncture / Unknown 03/18/2025 12:18 PM CDT 03/18/2025 12:21 PM CDT us Earlene Mckeon MD LAB - CHEMISTRY ORDERABLES Final Result [facility] [address] [place] [address] from Last 3 Months Insurance MEDICAID - OUT OF STATE WELLCARE WELLCARE Advance Directives * Full Code (Latest Code Status on File) Date Activated Date Inactivated Comments 12/05/2024 2:59 PM 12/08/2024 2:54 PM Care Teams [employer] Relationship Specialty Start Date End Date Elyse Pinto APRN-SUPERVISOR [employer] [address] [address] PCP - General Nurse Practitioner 04/17/24
--- OUTSIDE RECORDS SUMMARY | 2025-03-28 16:01 | XMS_ITS | Encounter Summary ---
Author Organization [facility] Address [address] [facility] [address] Phone Care Team Providers Care Transfer Table Operator Name Role Phone Elyse Pinto APRN, CNP Primary Care Provid er Olivia Mcguire MD Unavailable [phone] Reason for Visit * Reason Comments Medication Refill Encounter Details Date Type Department Care Team (Late st Contact Info) Description 11/12/2022 [facility]ill [facility] [address] [place] [address] Elyse Pinto APRN, CNP #[address] [address] Medication Refill Social History Tobacco [...] CNP - 11/13/2022 1:18 PM CDT [place] STAFF PSYCHIATRIST reviewed, Approved * Telephone Encounter - Ghislaine [...] Office Visit Elyse Pinto APRN, CNP [facility] Showing recent visits within past 365 days and meeting all other requirements Future Appointments Date Type Provider Dept 02/02/23 Appointment Elyse Pinto APRN, CNP [facility] Showing future appointments within next 90 days [...] unspecified documented in this encounter Care Teams Transfer Table Operator Relationship Specialty Start Date End Date Elyse Pinto APRN, CNP #2 [facility] [address] [place] [phone] PCP - General Advanced Practice Nurse 09/19/21 [facility] MD [facility] [address] [place] [address] Consulting Physician Urology 04/04/24 documented as of this encounter
--- OUTSIDE RECORDS SUMMARY | 2025-03-28 16:02 | XMS_ITS | Encounter Summary ---
Author Organization [facility] Address [address] [place] [address] [place] [address] Phone Care Team Providers Care Cold Patcher Name Role Phone Elyse Pinto APRN, CNP Primary Care Provid er Olivia Mcguire MD Unavailable [phone] Reason for Visit * Reason Comments Medication Refill Encounter Details Date Type Department Care Team (Late st Contact Info) Description 09/14/2023 Refill [facility] - Family [facility] [address] [place] [address] Elyse Pinto APRN, CNP #[address] [address] Medication Refill Social History Tobacco Use Types Packs/Day Years Used Date Smoking Tobacco: Former Cigarettes 1.5 30 1 - 04/08/2015 Smokeless Tobacco: Never Alcohol Use Standard Drinks/Week Comments Not Currently 0 (1 standard drink = 0.6 oz pur e alcohol) [facility] Utilities Answer Date Recorded In the past 12 months has [employer] electric, gas, oil, or water company threatened [...] often do you attend chur ch or buddhism services? Never 08/14/2023 Do you belong to any clubs o r organizations such as jew groups, unions, fraternal or athletic groups, or [...] Total Score - Questions 1-9 1 09/06 [facility] of Occupat ional [facility] - Occupational Stress Questionnaire Answer Date [...] place to sleep or slept in a senior living (including now)? No 08/14/2023 Education Answer Date [...] by Elyse Pinto APRN, CNP Brealbertina ordered STIVE TECHNOLOGY SPECIALIST documented in this encounter Plan of Treatment Not on file documented as of this encounter Visit Diagnoses Diagnosis Chronic obstructive pulmonary disease, unspecified COPD type documented in this encounter Care Teams Cold Patcher Relationship Specialty Start Date End Date Elyse Pinto APRN, CNP #2 [facility] [address] [place] [phone] PCP - General Advanced Practice Nurse 09/19/21 Olivia Mcguire MD #2 [facility] [address] [place] [address] Consulting Physician Urology 04/04/24 documented as of this encounter
--- OUTSIDE RECORDS SUMMARY | 2025-03-28 16:02 | XMS_ITS | Encounter Summary ---
Author Organization [facility] Address [address] [place] [address] [facility] [place] [address] Phone Care Team Providers Care Opera Singer Name Role Phone Elyse Pinto APRN, CNP Primary Care Provid er Olivia Mcguire MD Unavailable [phone] Reason for Visit * Reason Comments Medication Refill Encounter Details Date Type Department Care Team (Late st Contact Info) Description 12/21/2023 Refill [facility] - Family Medicine [facility] [address] [place] [address] Elyse Pinto APRN, CNP #[address] [address] Medication Refill Social History Tobacco Use Types Packs/Day Years Used Date Smoking Tobacco: Former Cigarettes 1.5 30 1 - 04/08/2015 Smokeless Tobacco: Never Alcohol Use Standard Drinks/Week Comments Not Currently 0 (1 standard drink = 0.6 oz pur e alcohol) [facility] Utilities Answer Date Recorded In the past 12 months has [employer] electric, gas, oil, or water company threatened [...] Health of Occupat ional [facility] [...] to sleep or slept in a senior care (including now)? No 08/14/2023 Education Answer Date [...] Appointments Date Type Provider Dept 02/12/24 Appointment lEyse Pinto APRN, CNP [facility] Showing future [...] 30 10.2 g Elyse Pinto APRN, CNP [facility]/pharmacy #[id number] - ... [place] 160-4.5 [facility] 11/18/2023 30 10.2 g Elyse Pinto APRN, CNP [facility][id number] - ... [place] 160-4.5 [facility] 10/23/2023 30 10.2 g Elyse Pinto APRN, CNP [facility]/pharmacy #[id number] - ... [place] 160-4.5 [facility] 09/27/2023 30 10.2 g Elyse Pinto APRN, CNP [facility][id number] - ... documented in this encounter Plan of Treatment Not on file documented as of this encounter Visit Diagnoses Diagnosis Chronic obstructive pulmonary disease, unspecified COPD type Anxiety Anxiety state, unspecified documented in this encounter Care Teams Opera Singer Relationship Specialty Start Date End Date Elyse Pinto APRN, CNP #2 [facility] [address] [place] [phone] PCP - General Advanced Practice Nurse 09/19/21 Olivia Mcguire MD #2 [facility] [address] [place] [address] Consulting Physician Urology 04/04/24 documented as of this encounter"
--- OUTSIDE RECORDS SUMMARY | 2025-03-28 16:02 | XMS_ITS | Encounter Summary ---
Author Organization [facility] Address [address] [place] [address] [facility] [place] [address] Phone Care Team Providers Care Certified Nursing Assistant Instructor Name Role Phone Elyse Pinto APRN, CNP Primary Care Provid er Olivia Mcguire MD Unavailable [phone] Reason for Visit * Reason Comments Medication Refill Encounter Details Date Type Department Care Team (Late st Contact Info) Description 11/15/2023 Refill [facility] - Family Medicine [facility] #2 [place] [address] Elyse Pinto APRN, CNP #[address] [address] Medication Refill Social History Tobacco Use Types Packs/Day Years Used Date Smoking Tobacco: Former Cigarettes 1.5 30 1 - 04/08/2015 Smokeless Tobacco: Never Alcohol Use Standard Drinks/Week Comments Not Currently 0 (1 standard drink = 0.6 oz pur e alcohol) [facility] Utilities Answer Date Recorded In the past 12 months has [employer] electric, gas, oil, or water company threatened [...] often do you attend chur ch or judaism services? Never 08/14/2023 Do you belong to any clubs o r organizations such as cheondoism groups, unions, fraternal or athletic groups, or [...] Total Score - Questions 1-9 1 09/06 [facility] of Occupat ional [facility] - Occupational Stress Questionnaire Answer Date Recorded [...] unspecified documented in this encounter Care Teams Certified Nursing Assistant Instructor Relationship Specialty Start Date End Date Elyse Pinto APRN, CNP #2 [facility] [address] [place] [address] PCP - General Advanced Practice Nurse 09/19/21 Olivia Mcguire MD #2 [facility] [address] [place] [address] Consulting Physician Urology 04/04/24 documented as of this encounter
--- OUTSIDE RECORDS SUMMARY | 2025-03-28 16:02 | XMS_ITS | Encounter Summary ---
Author Organization [facility] Address [address] [place] [address] [facility] [place] [address] Phone Care Team Providers Care Direct Service Worker Name Role Phone Elyse Pinto APRN, CNP Primary Care Provid er Olivia Mcguire MD Unavailable [phone] Reason for Visit * Reason Comments Medication Refill Encounter Details Date Type Department Care Team (Late st Contact Info) Description 02/21/2024 Refill [facility] - Family Medicine [facility] #2 [place] [address] Elyse Pinto APRN, CNP #[address] [address] Medication Refill Social History Tobacco Use Types Packs/Day Years Used Date Smoking Tobacco: Former Cigarettes 1.5 30 1 - 04/08/2015 Smokeless Tobacco: Never Alcohol Use Standard Drinks/Week Comments Not Currently 0 (1 standard drink = 0.6 oz pur e alcohol) [facility] Utilities Answer Date Recorded In the past 12 months has [employer] electric, gas, oil, or water company threatened [...] often do you attend chur ch or restoration services? Never 08/14/2023 Do you belong to any clubs o r organizations such as rastafarian groups, unions, fraternal or athletic groups, or [...] Total Score - Questions 1-9 1 09/06 [facility] of Occupat ional [facility] - Occupational Stress Questionnaire Answer Date [...] type documented in this encounter Care Teams Direct Service Worker Relationship Specialty Start Date End Date Elyse Pinto APRN, CREDIT CONTROLLER #2 [facility] [address] [place] [address] PCP - General Advanced Practice Nurse 09/19/21 Olivia Mcguire MD #2 [facility] [address] [place] [address] Consulting Physician Urology 04/04/24 documented as of this encounter
[2025-03-28 16:14] LABS: Hematocrit 29.9 % (37.0-47.0); Hemoglobin 9.8 g/dL (12.0-15.0); Immature Granulocyte Percent A 3.5 % (0-0.5); Lymphocytes Absolute Auto 0.30 K/mm3 (0.9-3.2); Mean Corpuscular HGB Conc 32.8 g/dl (32-36); Mean Corpuscular Hemoglobin 29.7 pg (26-34); Mean Corpuscular Volume 90.6 fl (80-100); Nucleated Red Blood Cells Absolute Auto 0.000 K/mm3 (0.0-0.012); Nucleated Red Blood Cells Perc 0.0 % (0.0-0.2); Platelet Count Result 162 k/mm3 (150-375); Red Blood Count 3.30 M/mm3 (4.2-5.4); White Blood Count 8.2 K/mm3 (4.5-10.0)
[2025-03-28 16:34] LABS: INR 1.1; Prothrombin Time 14.1 Seconds (11.1-14.7)
[2025-03-28 16:35] LABS: Partial Thromboplastin Time 26.9 Seconds (22.3-36.8)
[2025-03-28 16:40] LABS: Alanine Aminotransferase 54 U/L (6-35); Albumin Level 3.4 g/dL (3.5-5.1); Alkaline Phosphatase 122 U/L (38-126); Anion Gap 7 mmol/L (4-12); Aspartate Amino Transferase 53 U/L (14-36); Bilirubin,Total 1.2 mg/dL (0.2-1.3); Blood Urea Nitrogen 27 mg/dL (7-17); Carbon Dioxide 33 mmol/L (22-30); Chloride 88 mmol/L (98-107); Creatine Kinase 24 U/L (30-135); Estimated CRCL calculation 52 ml/min; Estimated Glomerular Filt Rate > 60; Glucose 126 mg/dL (65-110); Potassium 3.7 mmol/L (3.4-5.0); Sodium 128 mmol/L (137-145); Total Protein 6.9 g/dL (6.3-8.2)
[2025-03-28 16:58] LABS: Add Urine Microscopic? YES; Appearance Urine Turbid (Clear); Glucose Urine UA Negative (Negative); Leukocyte Esterase Ur Trace LEU/UL (Negative); Nitrate Urine Positive (Negative); Non Pathogenic Casts 0-2; Specific Grav Ur 1.014 (1.001-1.035)
[2025-03-28 17:03] LABS: Calcium 14.4 mg/dL (8.4-10.2)
--- NOTE | 2025-03-28 17:28 | PC.NURSE ---
Pt to CT via stretcher at this time.
[2025-03-28] MEDS: cefTRIAXone 1 GM in SODIUM CHLORIDE 0.9% IV 50 ML 100 ML IVPB (17:38)
--- NOTE | 2025-03-28 20:01 | PC.NURSE ---
depend with stool/urine changed and pt placed on purewick at this time.
[2025-03-28] MEDS: SODIUM CHLORIDE 0.9% IV 1,000 ML 125 ML IV CONT (20:04)
--- NOTE | 2025-03-28 20:08 | PC.NURSE ---
pt refusing ASA. Pt states i can't have that. I am allergic. when rn asked what happens if she takes asa, pt states I dont know, i just know i cant take it. Pt family believes a dr told her she cant take it but she doesnt know why.
[2025-03-28] MEDS: CLOPIDOGREL BISULFATE 300 MG TABLET PO (20:21)
--- NOTE | 2025-03-28 22:04 | PC.NURSE ---
Sabrina De Guzman - Daughter Aashish Banerjeeon - Son
--- NOTE | 2025-03-28 23:02 | PC.NURSE ---
Depend changed, bed changed, pure wick changed. Pt placed on a bed alarm and new Air Mattress.
[2025-03-29] VITALS (86 sets, daily range): BP systolic 101–151; BP diastolic 52–110; PULSE 96–133; RESP 15–46; TEMP 36.4; O2SAT 90–96; BMI 22.3
--- NOTE | 2025-03-29 00:51 | PC.NURSE ---
Pt pulled iv out and gown changed, covered in blood.
[2025-03-29] MEDS: SODIUM CHLORIDE 0.9% IV 1,000 ML 125 ML ×2 (03:48→12:34)
--- NOTE | 2025-03-29 05:15 | PC.NURSE ---
Pt moved from ed room 3 to ed room 1. Upon placing pt on a hospital bed, this rn noticed multiple small bugs crawling on the pt blanket. RN removed multiple bugs and placed them in a specimen cup to be identified by EVS. Charge notified and room 2/3 blocked. Sign hung on ed room 1 door.
--- NOTE | 2025-03-29 16:40 | PC.NURSE ---
Family asking RN if patient has received her home medications. RN confirmed with pt son home medications. RN added home meds and spoke with MD about adding home medication to MAR. Family asking when patient will be transferred and what the plan is.
--- NOTE | 2025-03-29 17:47 | PC.NURSE ---
Family feeding patient yogurt. Patient sitting up in bed and started coughing uncontrollably. RN spoke with family about no foods at this time. Patient is able to drink water without difficulty. RN checked BG, 94.
--- NOTE | 2025-03-29 17:55 | PC.NURSE ---
[facility] transfer center called RN. [facility] RN stating they have had multiple discharges, just waiting for beds to open up. She thinks patient will not transfer until tomorrow. RN spoke with MD about possibly getting a room upstairs while we are waiting. Now waiting to see if patient can get a room at [facility] between transfer to [facility].
[2025-03-29] MEDS: cefTRIAXone 1 GM in SODIUM CHLORIDE 0.9% IV 50 ML 100 ML IVPB (18:18)
--- NOTE | 2025-03-29 19:32 | PC.NURSE ---
MD spoke with family about plan. Daughter sitting in room with patient now.
[2025-03-29] MEDS: SODIUM CHLORIDE 0.9% IV 1,000 ML 999 ML IV CONT (19:42)
[2025-03-29 19:45] LABS: Hematocrit 23.9 % (37.0-47.0); Hemoglobin 7.7 g/dL (12.0-15.0); Immature Granulocyte Percent A 4.8 % (0-0.5); Lymphocytes Absolute Auto 0.24 K/mm3 (0.9-3.2); Mean Corpuscular HGB Conc 32.2 g/dl (32-36); Mean Corpuscular Hemoglobin 29.8 pg (26-34); Mean Corpuscular Volume 92.6 fl (80-100); Nucleated Red Blood Cells Absolute Auto 0.000 K/mm3 (0.0-0.012); Nucleated Red Blood Cells Perc 0.0 % (0.0-0.2); Platelet Count Result 124 k/mm3 (150-375); Red Blood Count 2.58 M/mm3 (4.2-5.4); White Blood Count 6.0 K/mm3 (4.5-10.0)
[2025-03-29 20:06] LABS: Alanine Aminotransferase 27 U/L (6-35); Albumin Level 2.5 g/dL (3.5-5.1); Alkaline Phosphatase 85 U/L (38-126); Anion Gap 2 mmol/L (4-12); Aspartate Amino Transferase 25 U/L (14-36); Bilirubin,Total 0.5 mg/dL (0.2-1.3); Blood Urea Nitrogen 14 mg/dL (7-17); Calcium 11.7 mg/dL (8.4-10.2); Carbon Dioxide 28 mmol/L (22-30); Chloride 101 mmol/L (98-107); Estimated CRCL calculation 69 ml/min; Estimated Glomerular Filt Rate > 60; Glucose 86 mg/dL (65-110); Magnesium 1.4 mg/dL (1.6-2.3); Potassium 2.9 mmol/L (3.4-5.0); Sodium 131 mmol/L (137-145); Total Protein 5.2 g/dL (6.3-8.2)
[2025-03-29] MEDS: ZOLEDRONIC ACID 4 MG/100 ML 100 ML 300 MG IVPB (20:17)
[2025-03-29] MEDS: CALCITONIN SALMON INJ 400 UNITS/2 ML VIAL 250 UNITS SUB-Q (21:15)
--- NOTE | 2025-03-29 21:35 | PM.IMHP ---
H&P: HPI History of Present Illness Date/Time: 03/29/25 21:35 Chief Complaint: Weakness, garbled speech, confusion Narrative: Assumed care for H&P, per business objects analyst who has accepted pt for ongoing care due to beds not being available at [facility]. Pt is still awaiting [facility] 214103/29/2025. -HPI obtained by daughter who is by the bedside,she reports patient, who has a history of stage four ovarian cancer with metastasis, presented with a noticeable decline in neurological function. Previously, the patient was experiencing weakness, reduced appetite, and a preference for sweet foods. A recent decline included slurred speech, an inability to form coherent sentences, and a general dullness in mental acuity. These symptoms were a significant change from the patient's baseline just days prior. Past treatments included chemotherapy and radiation, which resulted in mixed outcomes. The patient had been on maintenance therapy with Keytruda over the summer. Approximately a month ago, the patient stopped taking Cymbalta, prescribed for neuropathy, due to a discontinuation by the pharmacy. After resuming Cymbalta two weeks ago, the patient experienced worsening neuropathy, contributing to difficulties in walking. The patient's calcium levels were noted to be high, and there is a concern for possible stroke-like activity, despite a CT or CTA not indicating a stroke. An MRI of the brain was recommended for further evaluation. ED work-up revealed: on pt presented with generalized weakness poor p.o. intake, vital signs showing a heart rate of 139, physical exam showed debilitated patient tachycardia ill-appearing, labs to include CBC, CMP lipase, troponin coags showed hgb 9.8, sodium 128, BUN 27, glucose 126, AST 53 ALT 54 UA, showed evidence of infection, CT head without contrast showed age indeterminate focus of left frontal subcortical ischemia, no hemorrhage, MRI recommended, patient received 1 g of Rocephin IV, 300 mg of Plavix p.o. 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 Ignacio haynes to [facility], the neurologist on-call waiting list. On 03/29/2025 pt was accepted by joanie at after 1900 hrs, Per ED note: staff approach today at the end of my shift to talk to the hospitalist for possible admission to our facility because patient has been on the waiting list since yesterday and tomorrow will have Neurology on-call available Physical examination showing that the patient is more lethargic than when I saw her yesterday. CTA head and neck last night showed no ICA stenosis or other acute arterial abnormality, lytic bony metastatic disease C2, C5, lytic bony metastatic disease right scapula with large associated soft tissue component, no large vessel arterial occlusion disease or other acute arterial abnormality. Blood workup showed calcium level of 14.4 which is secondary to bone metastasis and high likely the underlying cause of patient lethargy and confusion. Normal saline IV bolus, 1 L, calcitonin 250 units subQ once, zoledronic acid 4 mg/100 mL IV piggyback ordered Neurology consult in the morning, Review of Systems Review of Systems: ROS unobtainable: Yes unobtainable due to mental status PMFSH Past Medical History Medical History Hypertension Benign breast lumps Surgical History Surgical History H/O: hysterectomy Family History Family History (Updated 03/29/25 @ 22:26 by Mariam Mahajan RN) Sibling Diabetes mellitus Mother Breast cancer in female Daughter Hypertension Other Unknown family medical history Social History Social History Smoking packs per day: 1 Smoking cigarettes per day: 20.0 Years smoked: 35 Smoking pack-years: 35.00 Smoking status: Former smoker Smoking end date: 07/09/15 Alcohol intake: never Substance use: current Substance use type: marijuana Living arrangements: with family Occupation/Education: other Gender identity (if verbalized by the patient): Female Meds Home Medications and Allergies Home Medications ?Medication ?Instructions ?Recorded ?Confirmed ?Type inhalational spacing device #1 ea 01/27/20 03/29/25 Rx (OptiChamber [facility] spacer) Symbicort 80 mcg-4.5 mcg/actuation 2 puff inhalation Q12H #10.2 grams 08/04/21 03/29/25 Rx HFA aerosol inhaler (budesonide-formoterol) albuterol sulfate 90 mcg/actuation 2 inh inhalation Q6H PRN shortness 11/08/21 03/29/25 Rx aerosol inhaler of breath or wheezing #1 ea cholecalciferol (vitamin D3) 125 125 mcg PO DAILY 11/08/21 03/29/25 History mcg (5,000 unit) capsule clonazepam 1 mg tablet 1 mg PO TID 11/08/21 03/29/25 History triamterene 37.5 1 cap PO DAILY 11/08/21 03/29/25 History mg-hydrochlorothiazide 25 mg capsule verapamil 180 mg 24 hr 180 mg PO DAILY 11/08/21 03/29/25 History capsule,extended release albuterol sulfate 2.5 mg/3 mL See Rx Instructions .Route 07/31/22 03/29/25 Rx (0.083 %) solution for nebulization .COMPLEX #180 mL atorvastatin 40 mg tablet 40 mg PO DAILY 11/01/22 03/29/25 History duloxetine 30 mg capsule,delayed 30 mg PO DAILY 03/29/25 03/29/25 History release folic acid 1 mg tablet 1 mg PO DAILY 03/29/25 03/29/25 History loratadine 10 mg capsule 10 mg PO Q24H 03/29/25 03/29/25 History montelukast 10 mg tablet 10 mg PO QPM 03/29/25 03/29/25 History ondansetron HCl 8 mg tablet 8 mg PO Q12H PRN nausea and 03/29/25 03/29/25 History vomiting sennosides 8.6 mg capsule (senna) 17.2 mg PO BID 03/29/25 03/29/25 History Allergies Allergy/AdvReac Type Severity Reaction Status Date / Time mushroom Allergy Severe Anaphylaxis Verified 03/29/25 22:16 varenicline (From Chantix) Allergy Severe Depression Verified 03/29/25 22:16 bupropion (From Wellbutrin) AdvReac Severe Depression Verified 03/29/25 22:16 Vital Signs Vital Signs - 24 hr 03/28/25 21:45 03/28/25 21:48 03/28/25 22:00 Pulse Rate 105 H 107 H 102 H Respiratory Rate 23 H 20 27 H Blood Pressure 123/72 Pulse Oximetry 03/28/25 22:01 03/28/25 22:02 03/28/25 22:15 Pulse Rate 103 H 102 H 111 H Respiratory Rate 27 H 27 H 26 H Blood Pressure 105/68 Pulse Oximetry 03/28/25 22:30 03/28/25 22:45 03/28/25 22:46 Pulse Rate 110 H 107 H 108 H Respiratory Rate 26 H 29 H 34 H Blood Pressure Pulse Oximetry 03/28/25 22:56 03/28/25 22:57 03/28/25 23:12 Pulse Rate 106 H 107 H 99 Respiratory Rate 27 H 27 H 18 Blood Pressure 104/65 Pulse Oximetry 03/28/25 23:15 03/28/25 23:16 03/28/25 23:30 Pulse Rate 97 98 100 Respiratory Rate 25 H 27 H 28 H Blood Pressure 86/49 L Pulse Oximetry 03/28/25 23:31 03/28/25 23:45 03/28/25 23:46 Pulse Rate 98 97 99 Respiratory Rate 26 H 30 H 25 H Blood Pressure 117/72 107/65 Pulse Oximetry 03/29/25 00:00 03/29/25 00:01 03/29/25 00:15 Pulse Rate 100 103 H 102 H Respiratory Rate 23 H 22 H 29 H Blood Pressure 101/88 Pulse Oximetry 03/29/25 00:16 03/29/25 00:20 03/29/25 00:30 Pulse Rate 102 H 105 H 105 H Respiratory Rate 25 H 22 H 22 H Blood Pressure 104/75 Pulse Oximetry 03/29/25 00:31 03/29/25 00:45 03/29/25 00:46 Pulse Rate 99 102 H 103 H Respiratory Rate 29 H 39 H 46 H Blood Pressure 103/87 105/72 Pulse Oximetry 03/29/25 01:00 03/29/25 01:01 03/29/25 01:25 Pulse Rate 107 H 102 H 101 H Respiratory Rate 26 H 33 H 24 H Blood Pressure 121/75 Pulse Oximetry 03/29/25 01:39 03/29/25 01:45 03/29/25 02:00 Pulse Rate 103 H 105 H 104 H Respiratory Rate 25 H 26 H 27 H Blood Pressure Pulse Oximetry 03/29/25 02:15 03/29/25 02:30 03/29/25 03:09 Pulse Rate 102 H 101 H 101 H Respiratory Rate 33 H 28 H 39 H Blood Pressure Pulse Oximetry 03/29/25 03:15 03/29/25 03:16 03/29/25 03:44 Pulse Rate 104 H 104 H 102 H Respiratory Rate 33 H 23 H 22 H Blood Pressure 117/81 Pulse Oximetry 03/29/25 03:45 03/29/25 03:47 03/29/25 04:00 Pulse Rate 103 H 102 H 105 H Respiratory Rate 28 H 24 H 25 H Blood Pressure Pulse Oximetry 03/29/25 04:06 03/29/25 04:15 03/29/25 04:51 Pulse Rate 104 H 103 H Respiratory Rate 21 H 25 H Blood Pressure 130/71 Pulse Oximetry 94 93 94 03/29/25 05:00 03/29/25 05:01 03/29/25 05:40 Pulse Rate 127 H Respiratory Rate 17 Blood Pressure 119/52 L Pulse Oximetry 94 03/29/25 05:41 03/29/25 05:45 03/29/25 06:00 Pulse Rate 130 H 133 H 124 H Respiratory Rate 15 26 H 38 H Blood Pressure 148/96 H Pulse Oximetry 93 03/29/25 06:02 03/29/25 06:05 03/29/25 06:15 Pulse Rate 126 H 122 H 121 H Respiratory Rate 25 H 30 H 18 Blood Pressure 106/81 Pulse Oximetry 03/29/25 06:32 03/29/25 06:46 03/29/25 07:00 Pulse Rate 115 H 108 H 105 H Respiratory Rate 19 28 H 32 H Blood Pressure Pulse Oximetry 03/29/25 07:01 03/29/25 07:02 03/29/25 08:30 Pulse Rate 107 H 105 H 104 H Respiratory Rate 20 28 H 26 H Blood Pressure 124/83 124/83 151/98 H Pulse Oximetry 95 95 03/29/25 09:01 03/29/25 10:09 03/29/25 10:30 Pulse Rate 103 H 102 H 100 Respiratory Rate 25 H 22 H 23 H Blood Pressure 135/73 104/85 104/85 Pulse Oximetry 95 95 94 03/29/25 11:00 03/29/25 11:23 03/29/25 11:30 Pulse Rate 101 H 98 99 Respiratory Rate 27 H 28 H 26 H Blood Pressure 119/78 Pulse Oximetry 96 93 91 03/29/25 11:50 03/29/25 12:00 03/29/25 12:15 Pulse Rate 96 104 H 100 Respiratory Rate 40 H 23 H 25 H Blood Pressure Pulse Oximetry 96 94 90 03/29/25 12:39 03/29/25 12:45 03/29/25 13:00 Pulse Rate 104 H 99 105 H Respiratory Rate 24 H 25 H 32 H Blood Pressure Pulse Oximetry 95 03/29/25 13:15 03/29/25 13:30 03/29/25 13:45 Pulse Rate 98 102 H 102 H Respiratory Rate 28 H 26 H 25 H Blood Pressure Pulse Oximetry 96 92 03/29/25 14:00 03/29/25 14:01 03/29/25 14:02 Pulse Rate 102 H 99 102 H Respiratory Rate 24 H 26 H 30 H Blood Pressure 124/84 Pulse Oximetry 93 90 93 03/29/25 14:15 03/29/25 14:41 03/29/25 14:45 Pulse Rate 103 H 97 105 H Respiratory Rate 23 H 28 H 23 H Blood Pressure Pulse Oximetry 96 03/29/25 15:00 03/29/25 15:01 03/29/25 15:15 Pulse Rate Respiratory Rate 25 H Blood Pressure 134/81 Pulse Oximetry 95 94 93 03/29/25 15:30 03/29/25 16:15 03/29/25 16:44 Pulse Rate 101 H 100 101 H Respiratory Rate 17 28 H 30 H Blood Pressure Pulse Oximetry 94 94 93 03/29/25 16:45 03/29/25 16:54 03/29/25 17:00 Pulse Rate 100 103 H 107 H Respiratory Rate 30 H 22 H 23 H Blood Pressure 113/79 Pulse Oximetry 94 93 92 03/29/25 17:01 03/29/25 17:15 03/29/25 17:30 Pulse Rate 106 H 125 H 120 H Respiratory Rate 21 H 24 H 31 H Blood Pressure 129/79 Pulse Oximetry 94 93 03/29/25 17:45 03/29/25 18:38 03/29/25 19:09 Pulse Rate 114 H 112 H 109 H Respiratory Rate 26 H 30 H 22 H Blood Pressure Pulse Oximetry 93 93 03/29/25 19:15 03/29/25 19:53 03/29/25 20:00 Pulse Rate 109 H 107 H 108 H Respiratory Rate 33 H 36 H 28 H Blood Pressure Pulse Oximetry 93 94 93 03/29/25 20:15 03/29/25 20:30 03/29/25 20:41 Pulse Rate 109 H 110 H 117 H Respiratory Rate 40 H 34 H 34 H Blood Pressure 123/110 H Pulse Oximetry 93 92 91 03/29/25 20:45 Pulse Rate 117 H Respiratory Rate 34 H Blood Pressure Pulse Oximetry 92 Exam Narrative: General: A well-developed, toxic-appearing, female sitting up in bed, confused, responds inappropriately to questions HEENT: Clear conjunctiva, delayed eye movement, unable to follow finger without moving had Neck: Supple. No midline cervical tenderness. Respiratory: Respirations are non- labored and lungs are clear to auscultation bilaterally. Cardiovascular: Regular rate and rhythm with S1-S2. Gastrointestinal: Abdomen is soft, non-tender, and non-distended with positive bowel sounds. Skin: Warm and dry. No rash or lesions on limited exam. Extremities: No cyanosis, clubbing, or edema. Radial and pedal pulses intact. Neurological: Alert and oriented x2. Cranial nerves 2-12 are grossly intact. Unable to appropriately respond to questions Psychiatric: Anxious affect. Judgment and insight declined H&P: Results Labs Labs: Short CBC 03/29/25 Range/Units 19:40 WBC 6.0 (4.5-10.0) K/mm3 Hgb 7.7 L (12.0-15.0) g/dL Hct 23.9 L (37.0-47.0) % Plt Count 124 L (150-375) k/mm3 BMP 03/29/25 19:40 Sodium 131 L Potassium 2.9 L Chloride 101 Carbon Dioxide 28 BUN 14 D Creatinine 0.63 L Glucose 86 Calcium 11.7 H Liver Function 03/29/25 Range/Units 19:40 Total Bilirubin 0.5 (0.2-1.3) mg/dL AST 25 (14-36) U/L ALT 27 (6-35) U/L Alkaline Phosphatase 85 (38-126) U/L Albumin 2.5 L (3.5-5.1) g/dL Pulse Oximetry Attestation: I personally reviewed and interpreted this pulse oximetry as follows: ECG Interpretation: Test Date: 2025-03-28 15:50:16 Measurements Intervals Stir[place] Rate: 122 P: 98 KS: 160 QRS: -1 QRSD: 133 T: 89 QT: 293 QTc: 419 Interpretive Statements SINUS TACHYCARDIA LEFT BUNDLE BRANCH BLOCK ABNORMAL ECG No previous ECG available for comparison Electronically Signed On 03-29-2025 08:17:07 CDT by Joseph Oconnell M.D. Imaging CT scan - head: Radiologist's impression: IMPRESSION: CTA NECK: 1. No ICA stenosis or other acute arterial abnormality. 2. Lytic bony metastatic disease C2, C5. 3. Lytic bony metastatic disease right scapula with large associated soft tissue component. CTA HEAD: 1. No large vessel arterial occlusive disease or other acute arterial abnormality. Chest x-ray: Radiologist's impression: FINDINGS: The lungs are clear, no effusion. No pneumothorax. Heart is normal size. Mediastinal and hilar contours are within normal limits. Bony thorax no acute abnormality. Miscellaneous: Right Mediport terminates in the SVC Impression: No acute cardiopulmonary abnormality. Assessment and Plan Assessment and plan (1) Acute cerebrovascular accident (CVA): Code(s): I63.9 - Cerebral infarction, unspecified Status: Acute Assessment and Plan: acute,hx of recent chemotherapy and radiation treatment at [facility] -check brain MRI in the a.m. -consult Neurology in the a.m. -check echocardiogram with bubble study -patient given clopidogrel 300 mg p.o. once in the ED (2) Acute hyponatremia: Code(s): E87.1 - Hypo-osmolality and hyponatremia Status: Acute Assessment and Plan: Acute -check urine osmol -continue telemetry monitoring -continue fluid resuscitation -recheck BMP q.6 hours (3) Hypercalcemia of malignancy: Code(s): E83.52 - Hypercalcemia Status: Acute Assessment and Plan: -continue telemetry monitoring -patient given calcitonin salmon 250 units subQ once in the ED -recheck BMP q 6 hr x2 (4) Urinary tract infection: Code(s): N39.0 - Urinary tract infection, site not specified Status: Acute Assessment and Plan: Acute as evidence by the [facility] -continue ceftriaxone 1 g IVPB Q 24 hours -monitor and record I&O (5) COPD (chronic obstructive pulmonary disease): Qualifiers: COPD type: unspecified COPD Qualified Code(s): J44.9 - Chronic obstructive pulmonary disease, unspecified Code(s): J44.9 - Chronic obstructive pulmonary disease, unspecified Status: Acute Assessment and Plan: Chronic, not in exacerbation -continue home medication -nebulizer treatment p.r.n. for any coughing or wheezing (6) Ovarian cancer: Code(s): C56.9 - Malignant neoplasm of unspecified ovary Status: Acute Assessment and Plan: pt follow with oncology at [facility] (7) Hypokalemia: Code(s): E87.6 - Hypokalemia Status: Acute Assessment and Plan: pt K+ is 2.9 continue telemetry monitoring Start K+ chloride 40 mEq IV P 130 ml/hr over 4 hours -recheck BMP, CBC in the a.m. Plan Pt waiting transfer to [facility] Continue home medications: VTE Prophylaxis: SCDs DIET: NPO Anticipated hospital stay: > 2 days Code Status: Full code Quality Stroke Date of last known normal: 03/22/25 Hospitalist MIPS Advance Care Plan I have confirmed that the patient's Advanced Care Plan is present, code status is documented, or surrogate decision maker is listed in patient medical record.: Yes Medication Reconciliation I have utilized all available resources to obtain, update and review the patients current medications (includes all prescriptions, OTC, herbals, cannabis, and nutritional supplements).: Yes
--- NOTE | 2025-03-29 21:53 | ADMGEN ---
This patient, Iliana Montero, was admitted to IMU Room 232-01. Patient/family oriented to hospital policies and general routines including ID bracelet, bed and alarms, visiting hours, pain management, procedures, bathroom and other care routines, personal items, smoking policy, room service/diet, and visiting hours. Information on how to activate the Rapid Response Team has been discussed. Patient/Family are encouraged to report perceived risks to care and to ask questions if they do not understand what they are told or what they should do.
[2025-03-29 23:00] LABS: Hematocrit 29.0 % (37.0-47.0); Hemoglobin 9.3 g/dL (12.0-15.0)
[2025-03-30] VITALS (19 sets, daily range): BP systolic 102–146; BP diastolic 49–86; PULSE 72–117; RESP 16–24; TEMP 36.2–37; O2SAT 91–97; BMI 24.3
[2025-03-30] MEDS: POTASSIUM CHLORIDE INJ 40 MEQ in SODIUM CHLORIDE 0.9% IV 500 ML 130 MEQ IVPB (00:03)
[2025-03-30] MEDS: MONTELUKAST SODIUM 10 MG TABLET PO ×2 (00:47→22:00)
[2025-03-30] MEDS: clonazePAM (*CRX) 0.5 MG TABLET 1 MG PO ×2 (00:47→08:48)
[2025-03-30] MEDS: ALBUTEROL SULFATE (*SP) AEROSOL 1 PUFF 2 PUFF INHALATION ×4 (02:03→20:37)
[2025-03-30] MEDS: SODIUM CHLORIDE 0.9% IV 1,000 ML 150 ML IV CONT (04:13)
[2025-03-30] MEDS: MAGNESIUM SULFATE 3GM/D5W100ML 3 GM/100 ML BAG IVPB ×2 (04:14→10:03)
[2025-03-30 04:47] LABS: Hematocrit 25.9 % (37.0-47.0); Hemoglobin 8.4 g/dL (12.0-15.0); Immature Granulocyte Percent A 5.9 % (0-0.5); Lymphocytes Absolute Auto 0.37 K/mm3 (0.9-3.2); Mean Corpuscular HGB Conc 32.4 g/dl (32-36); Mean Corpuscular Hemoglobin 30.2 pg (26-34); Mean Corpuscular Volume 93.2 fl (80-100); Nucleated Red Blood Cells Absolute Auto 0.000 K/mm3 (0.0-0.012); Nucleated Red Blood Cells Perc 0.0 % (0.0-0.2); Platelet Count Result 128 k/mm3 (150-375); Red Blood Count 2.78 M/mm3 (4.2-5.4); White Blood Count 7.1 K/mm3 (4.5-10.0)
[2025-03-30 05:05] LABS: Anion Gap 3 mmol/L (4-12); Blood Urea Nitrogen 10 mg/dL (7-17); Calcium 10.8 mg/dL (8.4-10.2); Carbon Dioxide 28 mmol/L (22-30); Chloride 101 mmol/L (98-107); Estimated CRCL calculation 70 ml/min; Estimated Glomerular Filt Rate > 60; Glucose 84 mg/dL (65-110); Magnesium 1.4 mg/dL (1.6-2.3); Potassium 4.5 mmol/L (3.4-5.0); Sodium 132 mmol/L (137-145)
[2025-03-30 07:02] LABS: Vitamin B12 > 1000.0 pg/mL (239-931)
[2025-03-30] MEDS: CENTRAL LINE FLUSH 10 ML IV PUSH ×3 (07:20→22:53)
[2025-03-30] MEDS: FLUTICASONE/SALMETEROL 45-21 MCG INHALER 1 PUFF 2 PUFF INHALATION ×2 (07:39→20:37)
--- NOTE | 2025-03-30 08:00 | ECHO_ITS ---
Patient Info Name: Iliana Montero Age: 59 years : 1965 Gender: Female Ht: 64 in Wt: 130 lbs BSA: 1.64 m2 HR: 108 bpm BP: 112 / 74 mmHg Technical Quality: Fair Exam Date: 03/30/2025 9:22 AM Patient Status: I Admit Date: 03/29/2025 Exam Type: CA echo dop bubble study w con Complete two-dimentional, color flow and Doppler transthoracic echocardiogram is performed with agitated saline and with contrast to opacify the left ventricle and to improve the delineation of the left ventricle endocardial borders. Staff Referring Physician: Kavita Haq Financial Officer: Suzie Escobar Attending Provider: Olimpia Velasquez Contrast/Agitated Saline Contrast/Ag. Saline: Definity Amount: 2.00 ml Existing IV Access: Yes IV Access Condition: patent with no signs of infiltration Contrast/Ag. Saline: Agitated Saline Amount: 18.00 ml Existing IV Access: Yes IV Access Condition: patent with no signs of infiltration Summary 1. The left ventricle is normal in size with mildly reduced systolic function. There is mild concentric left ventricular hypertrophy. The left ventricular ejection fraction is visually estimated to be 40-45%. There is mild hypokinesis of inferior, inferoseptal, and anteroseptal lopez. 2. Agitated saline study revealed intracardiac [id number] shunt suggestive of a PFO. Left Ventricle The left ventricle is normal in size with mildly reduced systolic function. There is mild concentric left ventricular hypertrophy. The left ventricular ejection fraction is visually estimated to be 40-45%. There is mild hypokinesis of inferior, inferoseptal, and anteroseptal lopez. Right Ventricle The right ventricle is normal in size and systolic function. Left Atria The left atrium is normal size. Right Atria The right atrium is normal size. Atrial Septum Agitated saline study revealed intracardiac [id number] shunt suggestive of a PFO. Aortic Valve The aortic valve is trileaflet and opens well. There is no aortic regurgitation. Pulmonic Valve The pulmonic valve is not well visualized. Mitral Valve The mitral valve is normal. There is trace mitral regurgitation. Tricuspid Valve The tricuspid valve is grossly normal. There is trace tricuspid regurgitation. Pericardium/Pleural There is a small size pericardial effusion. Inferior Vena Cava Normal inferior vena cava with >50% collapse upon inspiration consistent with normal right atrial pressure, 3 mmHg. Aorta The aortic root at the level of the sinus of Valsalva measures 2.9 cm in diameter. Left Ventricular Outflow Tract Name Value Normal LVOT 2D LVOT Diameter 1.9 cm LVOT Doppler LVOT Peak Velocity 107 cm/s LVOT Peak Gradient 5 mmHg LVOT Mean Gradient 3 mmHg LVOT VTI 16 cm LVOT VTI/AV VTI Ratio 0.7 LVOT Stroke Volume 48 ml LVOT CO 14.3 l/min LVOT CI 8.7 l/min/m2 Pulmonic Valve Name Value Normal PV Doppler PV Peak Velocity 112 cm/s PV Peak Gradient 5 mmHg Mitral Valve Name Value Normal MV Diastolic Function MV E Peak Velocity 96 cm/s MV A Peak Velocity 1 cm/s MV E/A 85.0 MV Decel Time (PW) 116 ms MV Annular TDI MV E/e' (Lateral) 6.1 Tricuspid Valve Name Value Normal TV Regurgitation Doppler TR Peak Velocity 248 cm/s TR Peak Gradient 25 mmHg Estimated PAP/RSVP RA Pressure 3 mmHg <=5 PA Systolic Pressure 28 mmHg <36 RV Systolic Pressure 28 mmHg <36 TV Annular TDI TV Lateral Megan s' Velocity 12.2 cm/s >=9.5 Aorta Name Value Normal Ascending Aorta Ao Root Diameter (MM) 3.4 cm Ao Root Diam Index (MM) 2.1 cm/m2 Aortic Valve Name Value Normal AV Doppler AV Peak Velocity 135 cm/s AV Peak Gradient 7 mmHg AV Mean Gradient 4 mmHg AV VTI 24 cm AV Area (Cont Eq VTI) 2.0 cm2 >=3.0 AV Area (Cont Eq Stevie) 2.3 cm2 AV DI (Stevie) 0.79 AV Regurgitation 2D LVOT Area 2.9 cm2 Ventricles Name Value Normal LV Dimensions 2D/MM IVS Diastolic Thickness (2D) 1.2 cm 0.6-1.0 LVID Diastole (2D) 4.5 cm 3.8-5.2 LVIW Diastolic Thickness (2D) 1.0 cm 0.6-0.9 LVID Systole (2D) 3.2 cm 2.2-3.5 LVOT Diameter 1.9 cm LV Mass (2D Cubed) 172.77 g 67.00-162.00 LV Mass Index (2D Cubed) 106 g/m2 43-95 Relative Wall Thickness (2D) 0.46 <=0.42 LV Fractional Shortening/Ejection Fraction 2D/MM LV Fractional Shortening (2D) 28 % 27-45 LV EF (2D Teichholz) 54 % LV Diastolic Volume (4C MOD) 113 ml LV EF (4C MOD) 50 % LV Diastolic Volume (2C MOD) 115 ml LV EF (2C MOD) 48 % LV Diastolic Volume (BP MOD) 116 ml 46-106 LV Diastolic Volume Index (BP MOD) 71 ml/m2 29-61 LV Systolic Volume (BP MOD) 58 ml 14-42 LV Systolic Volume Index (BP MOD) 36 ml/m2 8-24 LV EF (BP MOD) 49 % 54-74 LV Diastolic Length (4C) 7.8 cm LV Systolic Length (4C) 6.9 cm LV Stroke Volume (4C MOD) 56 ml RV Dimensions 2D/MM RVID Diastole (2D) 2.6 cm 2.1-3.5 Atria Name Value Normal LA Dimensions LA Volume (4C A-L) 34 ml LA Volume (BP A-L) 37 ml RA Dimensions RA Systolic Major Hanson Length (4C) 3.6 cm 2.2-2.8 RA Area (4C) 8.4 cm2 <=18.0 Report Signatures
[2025-03-30] MEDS: CHOLECALCIFEROL (VITAMIN D3) 125 MCG (5,000 UNITS) TABLET PO (08:45)
[2025-03-30] MEDS: TRIAMTERENE 37.5 MG/HCTZ 25 MG (MAXZIDE) TABLET 1 TAB PO (08:46)
[2025-03-30] MEDS: ATORVASTATIN 40 MG TABLET PO (08:46)
[2025-03-30] MEDS: CLOPIDOGREL BISULFATE 75 MG TABLET PO (08:47)
[2025-03-30] MEDS: VERAPAMIL HCL 180 MG TABLET ER PO (08:47)
[2025-03-30] MEDS: LORATADINE 10 MG TABLET PO (08:48)
[2025-03-30] MEDS: FOLIC ACID 1 MG TABLET PO (08:48)
[2025-03-30] MEDS: PERFLUTREN LIPID MICROSPHERES 1.5 ML VIAL DILUTED TO 10 ML TOTAL VOLUME IV PUSH (09:40)
--- NOTE | 2025-03-30 10:05 | PCSTNOTE ---
Please refer to the Bedside Swallow Evaluation in the EMR. Please note, silent aspiration cannot be ruled out at bedside. Pt is a 59 year old female who presented to the hospital with a noticeable decline in neurological function. Previously, the patient was experiencing weakness, reduced appetite, and a preference for sweet foods. A recent decline included slurred speech, an inability to form coherent sentences, and a general dullness in mental acuity. ST orders were received due to concern for possible CVA. Throughout the evaluation, the pt was slightly confused; however, was able to state the month and day she was born and answered yes/no question regarding her name. Pt required frequent cues to follow directions throughout the oral mechanism exam. The oral mechanism exam was limited due to limited direction following; however, lingual and labial strength and movement seemed to be within functional limits when observed with PO. PO trials included ice chips, thin liquids (via tsp, cup, and straw), puree, and hard solids. Pt demonstrated timely swallow initiation with thin liquids and puree; however, slight prolonged mastication was noted with solid trial. Oral residue was also noted with solid trial, but clears easily with a liquid wash. Across all trials and consistencies, pt did not demonstrate overt s/s of aspiration. Of note, given her new weakness, pt was unable to feed herself this date. Therefore, 1-1 supervision is recommended for feeding support and to ensure use of strategies (small bites/sips and alternating solids and liquids to clear oral residue). Recommendations: 1. Regular Diet (Level 7) and Thin liquids (Level 0) 2. Alternate solids and liquids; small bites and sips; upright with ALL PO; 1-1 supervision with all PO 3. No further ST warranted at this time. Please re-consult ST if further issues arise. RN and MD notified of these results.
[2025-03-30] MEDS: CALCITONIN SALMON INJ 400 UNITS/2 ML VIAL 100 UNITS SUB-Q (10:15)
--- NOTE | 2025-03-30 11:10 | IVDEFINITY ---
Prior to administration of IV Definity the patient was educated on the risks and benefits of the imaging enhancing agent including potential adverse side effects. The patient verbalized understanding. Allergies were verified. No exclusion criteria were identified and at least one of the following inclusion criteria were met: 1) physician request, 2) patient technically difficult to image (per the [place] [employer] guidelines of two or more segments not discernable within the apical view), or 3) questionable left ventricular function. ?
--- NOTE | 2025-03-30 11:44 | WPDNEURCNPN ---
Assessment and Plan Assessment and plan (1) Acute cerebrovascular accident (CVA): Code(s): I63.9 - Cerebral infarction, unspecified Status: Acute Assessment and Plan: The development of speech problems last Sunday and finding of a questionable hypodensity in the left frontal area requires further follow-up evaluation. In the meanwhile the patient is on antiplatelets. I did not see any evidence for edema or mass effect on the brain scan and hence we can continue the current therapy. (2) Hypercalcemia of malignancy: Code(s): E83.52 - Hypercalcemia Status: Acute (3) Ovarian cancer: Code(s): C56.9 - Malignant neoplasm of unspecified ovary Status: Acute (4) COPD (chronic obstructive pulmonary disease): Qualifiers: COPD type: unspecified COPD Qualified Code(s): J44.9 - Chronic obstructive pulmonary disease, unspecified Code(s): J44.9 - Chronic obstructive pulmonary disease, unspecified Status: Acute Plan The patient's hypercalcemia social with a bony metastasis. Her liver enzymes slightly high but that improved. Calcium is also improving. X-ray of the cervical spine shows metastasis the C2 and C5 and right scapula. CT scan of brain shows some questionable findings of left frontal area. She appears to very drowsy but this could be because the Klonopin that she received this morning. I spoke to the nursing staff and the daughter. The daughter feels that she does not always take Klonopin but when she had an anxiety attack she might take 1. We can change this to p.r.n.. She also try to obtain MRI of the brain since the possibility of brain metastasis versus stroke require further looking into. Also noted the urine examination shows some questionable findings raising possibility of urinary tract infection and this may require some follow-up. He is currently on anti-platelet and also on atorvastatin 80 mg a day. Previously a LDL of around 44. She is moving all her limbs however her to status and speech I still not quite normal and hence some follow-up is required. I believe she has been accepted for transfer to [facility] daughter would like to take her to [facility] where her oncologist are it certainly if can be arranged that we good for the family and patient. In the meanwhile supportive care is in place. An echocardiogram also has been requested. Should follow the results of these. 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 She is considered to be in stage IV. She goes to [facility] under care of oncologist. She is currently on Keytruda and has been through other chemotherapy agents. For the last few days she has not been eating and last Sunday the family noted that her speech was slurred. CT scan of brain was performed when she was brought in here and a shows possible left frontal infarct of on determined age however this is a study without contrast. A CT angiogram of the head and neck was performed which did not show any large vessel occlusion. A x-ray of the cervical spine shows metastasis to see 2 and C5 vertebrae and also the right scapula. The patient has been taking Klonopin 1 mg on as-needed basis however receive 1 dose this morning when I saw her she is very drowsy barely opens her eyes but when she did she could not tell me the name of her daughter her own age either. She did tell me her date of . Not follow 2 step commands and occasionally follows one-step command. It was also noted that her serum calcium is high at 14.4 and is down now to 10.8. Liver enzymes slightly high which are also improving. Serum magnesium was low at 1.4. There is a possibility of urinary tract infection. Patient is currently on Plavix and Lipitor 80 mg a day. From the ER they had called the stroke unit at [facility] and she has been accepted for transfer but they do not have any bed and she is waiting for the same. Given her long wait she was brought to the floor. She has not had any seizure-like activity. She is moving all 4 limbs. She remains very lethargic. Apparent Cystex Klonopin because the anxiety as she once has had a lung collapse and has he has history of COPD and she is always fearful of some pulmonary complication. According to the daughter she does not always take Klonopin Review of Systems Review of Systems: ROS unobtainable: Yes unobtainable due to mental status PMFSH Past Medical History Medical History Hypertension Benign breast lumps Surgical History Surgical History H/O: hysterectomy Family History Family History Sibling Diabetes mellitus Mother Breast cancer in female Daughter Hypertension Other Unknown family medical history Social History Social History Smoking packs per day: 1 Smoking cigarettes per day: 20.0 Years smoked: 30 Smoking pack-years: 30.00 Smoking status: Former smoker Tobacco type: cigarettes Smokeless tobacco user: other Second hand tobacco smoke exposure: No Smoking end date: 07/09/15 Additional smoking assessment comments: Smokes marijuana and chews nicotine gum Alcohol intake: former Drinks per week: 0 Substance use: current Substance use type: marijuana Last use: a week ago Lack of Transportation: YES Lack of Food: Never True Current Housing: I Have Housing Concerned About Future Housing: No Difficulty Paying Gas/Electric Bills: No Difficulty Paying for Meds: No Currently Unemployed: No Education: High School Diploma/GED Difficulty w/ Childcare or Family Care: No Living arrangements: with family Occupation/Education: other Gender identity (if verbalized by the patient): Female Spiritual care concerns: No Meds Home Medications and Allergies Home Medications ?Medication ?Instructions ?Recorded ?Confirmed ?Type inhalational spacing device #1 ea 01/27/20 03/29/25 Rx (Amber Amber [facility] spacer) Symbicort 80 mcg-4.5 mcg/actuation 2 puff inhalation Q12H #10.2 grams 08/04/21 03/29/25 Rx HFA aerosol inhaler (budesonide-formoterol) albuterol sulfate 90 mcg/actuation 2 inh inhalation Q6H PRN shortness 11/08/21 03/29/25 Rx aerosol inhaler of breath or wheezing #1 ea cholecalciferol (vitamin D3) 125 125 mcg PO DAILY 11/08/21 03/29/25 History mcg (5,000 unit) capsule clonazepam 1 mg tablet 1 mg PO TID 11/08/21 03/29/25 History triamterene 37.5 1 cap PO DAILY 11/08/21 03/29/25 History mg-hydrochlorothiazide 25 mg capsule verapamil 180 mg 24 hr 180 mg PO DAILY 11/08/21 03/29/25 History capsule,extended release albuterol sulfate 2.5 mg/3 mL See Rx Instructions .Route 07/31/22 03/29/25 Rx (0.083 %) solution for nebulization .COMPLEX #180 mL atorvastatin 40 mg tablet 40 mg PO DAILY 11/01/22 03/29/25 History duloxetine 30 mg capsule,delayed 30 mg PO DAILY 03/29/25 03/29/25 History release folic acid 1 mg tablet 1 mg PO DAILY 03/29/25 03/29/25 History loratadine 10 mg capsule 10 mg PO Q24H 03/29/25 03/29/25 History montelukast 10 mg tablet 10 mg PO QPM 03/29/25 03/29/25 History ondansetron HCl 8 mg tablet 8 mg PO Q12H PRN nausea and 03/29/25 03/29/25 History vomiting sennosides 8.6 mg capsule (senna) 17.2 mg PO BID 03/29/25 03/29/25 History Allergies Allergy/AdvReac Type Severity Reaction Status Date / Time mushroom Allergy Severe Anaphylaxis Verified 03/29/25 22:16 varenicline (From Chantix) Allergy Severe Depression Verified 03/29/25 22:16 bupropion (From Wellbutrin) AdvReac Severe Depression Verified 03/29/25 22:16 Vital Signs Vital Signs - 24 hr 03/29/25 11:50 03/29/25 12:00 03/29/25 12:15 Temperature Pulse Rate 96 104 H 100 Respiratory Rate 40 H 23 H 25 H Blood Pressure Pulse Oximetry 96 94 90 Oxygen Delivery Fraction of Inspired Oxygen 03/29/25 12:39 03/29/25 12:45 03/29/25 13:00 Temperature Pulse Rate 104 H 99 105 H Respiratory Rate 24 H 25 H 32 H Blood Pressure Pulse Oximetry 95 Oxygen Delivery Fraction of Inspired Oxygen 03/29/25 13:15 03/29/25 13:30 03/29/25 13:45 Temperature Pulse Rate 98 102 H 102 H Respiratory Rate 28 H 26 H 25 H Blood Pressure Pulse Oximetry 96 92 Oxygen Delivery Fraction of Inspired Oxygen 03/29/25 14:00 03/29/25 14:01 03/29/25 14:02 Temperature Pulse Rate 102 H 99 102 H Respiratory Rate 24 H 26 H 30 H Blood Pressure 124/84 Pulse Oximetry 93 90 93 Oxygen Delivery Fraction of Inspired Oxygen 03/29/25 14:15 03/29/25 14:41 03/29/25 14:45 Temperature Pulse Rate 103 H 97 105 H Respiratory Rate 23 H 28 H 23 H Blood Pressure Pulse Oximetry 96 Oxygen Delivery Fraction of Inspired Oxygen 03/29/25 15:00 03/29/25 15:01 03/29/25 15:15 Temperature Pulse Rate Respiratory Rate 25 H Blood Pressure 134/81 Pulse Oximetry 95 94 93 Oxygen Delivery Fraction of Inspired Oxygen 03/29/25 15:30 03/29/25 16:15 03/29/25 16:44 Temperature Pulse Rate 101 H 100 101 H Respiratory Rate 17 28 H 30 H Blood Pressure Pulse Oximetry 94 94 93 Oxygen Delivery Fraction of Inspired Oxygen 03/29/25 16:45 03/29/25 16:54 03/29/25 17:00 Temperature Pulse Rate 100 103 H 107 H Respiratory Rate 30 H 22 H 23 H Blood Pressure 113/79 Pulse Oximetry 94 93 92 Oxygen Delivery Fraction of Inspired Oxygen 03/29/25 17:01 03/29/25 17:15 03/29/25 17:30 Temperature Pulse Rate 106 H 125 H 120 H Respiratory Rate 21 H 24 H 31 H Blood Pressure 129/79 Pulse Oximetry 94 93 Oxygen Delivery Fraction of Inspired Oxygen 03/29/25 17:45 03/29/25 18:38 03/29/25 19:09 Temperature Pulse Rate 114 H 112 H 109 H Respiratory Rate 26 H 30 H 22 H Blood Pressure Pulse Oximetry 93 93 Oxygen Delivery Fraction of Inspired Oxygen 03/29/25 19:15 03/29/25 19:53 03/29/25 20:00 Temperature Pulse Rate 109 H 107 H 108 H Respiratory Rate 33 H 36 H 28 H Blood Pressure Pulse Oximetry 93 94 93 Oxygen Delivery Fraction of Inspired Oxygen 03/29/25 20:15 03/29/25 20:30 03/29/25 20:41 Temperature Pulse Rate 109 H 110 H 117 H Respiratory Rate 40 H 34 H 34 H Blood Pressure 123/110 H Pulse Oximetry 93 92 91 Oxygen Delivery Fraction of Inspired Oxygen 03/29/25 20:45 03/29/25 22:00 03/29/25 22:00 Temperature 97.5 F L Pulse Rate 117 H 102 H Respiratory Rate 34 H 28 H Blood Pressure 143/83 H Pulse Oximetry 92 95 Oxygen Delivery Room Air Fraction of Inspired Oxygen 09/22/25 00:00 03/30/25 00:00 03/30/25 00:00 Temperature 98.5 F 98.5 F Pulse Rate 72 72 115 H Respiratory Rate 24 H 24 H Blood Pressure 146/73 H 146/73 H Pulse Oximetry 93 94 Oxygen Delivery Fraction of Inspired Oxygen 03/30/25 02:00 03/30/25 02:00 03/30/25 02:04 Temperature 98.2 F Pulse Rate 115 H 117 H 114 H Respiratory Rate 24 H 20 Blood Pressure 113/77 Pulse Oximetry 92 Oxygen Delivery Fraction of Inspired Oxygen 03/30/25 02:07 03/30/25 04:00 03/30/25 04:00 Temperature 98.5 F Pulse Rate 114 H 110 H Respiratory Rate 20 21 H Blood Pressure 112/74 Pulse Oximetry 92 97 Oxygen Delivery Room Air Room Air Fraction of Inspired Oxygen 03/30/25 04:00 03/30/25 06:00 03/30/25 06:00 Temperature 97.7 F Pulse Rate 106 H 99 91 Respiratory Rate 23 H Blood Pressure 132/85 Pulse Oximetry 95 Oxygen Delivery Fraction of Inspired Oxygen 03/30/25 07:41 03/30/25 08:00 03/30/25 08:00 Temperature 97.5 F L Pulse Rate 100 Respiratory Rate 18 Blood Pressure 130/86 Pulse Oximetry 93 92 Oxygen Delivery Room Air Room Air Fraction of Inspired Oxygen 03/30/25 08:00 03/30/25 10:00 Temperature Pulse Rate 100 93 Respiratory Rate Blood Pressure Pulse Oximetry Oxygen Delivery Fraction of Inspired Oxygen Exam Narrative: Patient is very drowsy but I was able to wake her up. Admission was he could tell me her date of but could not tell me how old she is. She did not know her current location. She knew her own name but she could not tell me her daughter's name. Her speech does appears somewhat garbled. Examination head and neck shows no evidence of external trauma. No carotid bruit. Nerves no facial asymmetry. Pupils were equal reactive. Extraocular movements intact. Visual hernández could not reliably tested. Other cranial nerves grossly intact. Motor system moving both upper and lower limbs. She disc is my fingers with the hands. Deep tendon reflexes did not show any significant asymmetry. Sensation is a could not be reliably performed. Results Labs 03/30/25 04:24 03/30/25 04:23 Labs: Short CBC 03/29/25 03/29/25 03/30/25 Range/Units 19:40 22:55 04:24 WBC 6.0 7.1 (4.5-10.0) K/mm3 Hgb 7.7 L 9.3 L 8.4 L (12.0-15.0) g/dL Hct 23.9 L 29.0 L 25.9 L (37.0-47.0) % Plt Count 124 L 128 L (150-375) k/mm3 BMP 03/29/25 03/30/25 19:40 04:23 Sodium 131 L 132 L Potassium 2.9 L 4.5 Chloride 101 101 Carbon Dioxide 28 28 BUN 14 D 10 Creatinine 0.63 L 0.62 L Glucose 86 84 Calcium 11.7 H 10.8 H Liver Function 03/29/25 Range/Units 19:40 Total Bilirubin 0.5 (0.2-1.3) mg/dL AST 25 (14-36) U/L ALT 27 (6-35) U/L Alkaline Phosphatase 85 (38-126) U/L Albumin 2.5 L (3.5-5.1) g/dL Imaging Attestation: I personally reviewed and interpreted this imaging study as follows: (CT scan of brain and CT angiogram of the head and neck) My impression: Questionable hypodensity in the left frontal area. CT angiogram head and neck did not show any significant large vessel occlusion.
--- NOTE | 2025-03-30 11:51 | PCPTNOTE ---
MRI pending 1150, will follow.
--- NOTE | 2025-03-30 12:48 | P.PNIM_ITS ---
Progress Note: A&P Assessment and Plan (1) Hypercalcemia of malignancy: Code(s): E83.52 - Hypercalcemia Status: Acute (2) Hypokalemia: Code(s): E87.6 - Hypokalemia Status: Acute (3) Urinary tract infection: Code(s): N39.0 - Urinary tract infection, site not specified Status: Acute (4) Ovarian cancer: Code(s): C56.9 - Malignant neoplasm of unspecified ovary Status: Acute (5) COPD (chronic obstructive pulmonary disease): Qualifiers: COPD type: unspecified COPD Qualified Code(s): J44.9 - Chronic obstructive pulmonary disease, unspecified Code(s): J44.9 - Chronic obstructive pulmonary disease, unspecified Status: Acute (6) Former smoker: Code(s): Z87.891 - Personal history of nicotine dependence Status: Acute (7) Acute cerebrovascular accident (CVA): Code(s): I63.9 - Cerebral infarction, unspecified Status: Acute Plan 59-year-old female with past medical history of stage IV ovarian cancer with metastasis presenting with worsening mental status. She had recent clearly experiencing weakness, reduced appetite, slurring speech These symptoms were a significant change from the patient's baseline just days prior. Patient has been treated with chemo, radiation in the past, currently on maintenance therapy with Keytruda. , CT head without contrast showed age indeterminate focus of left frontal subcortical ischemia, no hemorrhage, CTA head and neck last night showed no ICA stenosis or other acute arterial abnormality, lytic bony metastatic disease C2, C5, lytic bony metastatic disease right scapula with large associated soft tissue component, no large vessel arterial occlusion disease or other acute arterial abnormality. Blood workup showed calcium level of 14.4 . Received calcitonin, zoledronic acid hypercalcemia. 1. Altered mental status/acute encephalopathy: CT with age indeterminate focus of left frontal subcortical ischemia Patient received clonazepam this morning very drowsy Will change to p.r.n. Await MRI brain, echocardiogram Continue tele monitoring Neurology following Continue with Plavix, statin Appreciate speech help 2. Possible UTI: Continue with ceftriaxone Follow-up urine culture 3. Hypercalcemia: Likely secondary to malignancy Received zoledronic acid, calcitonin, IV fluids in the ER Corrected calcium this morning was 11.6 Will give another dose of calcitonin Recheck calcium levels in morning 4. Hypomagnesemia: Supplement the magnesium 5. History of metastatic cancer: Await MRI brain Patient follows up with Oncology at [facility] 6. History of hypertension: Continue bedtime triamterene, hydrochlorothiazide, verapamil 7. Code status: Full, discussed with the daughter about goals of care. She will talk to her siblings 8. DVT prophylaxis: Heparin subQ 9. Disposition: Pending improvement Time Spent With Patient Time: 43 minutes Subjective Date/time seen: 03/30/25 12:48 Interval history: Patient remains very drowsy Review of Systems Review of Systems: ROS unobtainable: Yes unobtainable due to medical condition and unobtainable due to mental status Exam Narrative: General: Drowsy HEENT: Clear conjunctiva, Neck: Supple. Respiratory: clear to auscultation bilaterally. Cardiovascular: Regular rate and rhythm with S1-S2. Gastrointestinal: Abdomen is soft, non-tender, and non-distended with positive bowel sounds. Skin: Warm and dry. No rash or lesions on limited exam. Extremities: No edema. Neurological: Very drowsy, barely opening her eyes to verbal stimulation Psychiatric: Unable to assess Objective Data Vital Signs Vital Signs: Vital Signs - 24 hr 03/29/25 13:00 03/29/25 13:15 03/29/25 13:30 Temperature Pulse Rate 105 H 98 102 H Respiratory Rate 32 H 28 H 26 H Blood Pressure Pulse Oximetry 95 96 Oxygen Delivery Fraction of Inspired Oxygen 03/29/25 13:45 03/29/25 14:00 03/29/25 14:01 Temperature Pulse Rate 102 H 102 H 99 Respiratory Rate 25 H 24 H 26 H Blood Pressure 124/84 Pulse Oximetry 92 93 90 Oxygen Delivery Fraction of Inspired Oxygen 03/29/25 14:02 03/29/25 14:15 03/29/25 14:41 Temperature Pulse Rate 102 H 103 H 97 Respiratory Rate 30 H 23 H 28 H Blood Pressure Pulse Oximetry 93 96 Oxygen Delivery Fraction of Inspired Oxygen 03/29/25 14:45 03/29/25 15:00 03/29/25 15:01 Temperature Pulse Rate 105 H Respiratory Rate 23 H Blood Pressure 134/81 Pulse Oximetry 95 94 Oxygen Delivery Fraction of Inspired Oxygen 03/29/25 15:15 03/29/25 15:30 03/29/25 16:15 Temperature Pulse Rate 101 H 100 Respiratory Rate 25 H 17 28 H Blood Pressure Pulse Oximetry 93 94 94 Oxygen Delivery Fraction of Inspired Oxygen 03/29/25 16:44 03/29/25 16:45 03/29/25 16:54 Temperature Pulse Rate 101 H 100 103 H Respiratory Rate 30 H 30 H 22 H Blood Pressure 113/79 Pulse Oximetry 93 94 93 Oxygen Delivery Fraction of Inspired Oxygen 03/29/25 17:00 03/29/25 17:01 03/29/25 17:15 Temperature Pulse Rate 107 H 106 H 125 H Respiratory Rate 23 H 21 H 24 H Blood Pressure 129/79 Pulse Oximetry 92 94 Oxygen Delivery Fraction of Inspired Oxygen 03/29/25 17:30 03/29/25 17:45 03/29/25 18:38 Temperature Pulse Rate 120 H 114 H 112 H Respiratory Rate 31 H 26 H 30 H Blood Pressure Pulse Oximetry 93 93 Oxygen Delivery Fraction of Inspired Oxygen 03/29/25 19:09 03/29/25 19:15 03/29/25 19:53 Temperature Pulse Rate 109 H 109 H 107 H Respiratory Rate 22 H 33 H 36 H Blood Pressure Pulse Oximetry 93 93 94 Oxygen Delivery Fraction of Inspired Oxygen 03/29/25 20:00 03/29/25 20:15 03/29/25 20:30 Temperature Pulse Rate 108 H 109 H 110 H Respiratory Rate 28 H 40 H 34 H Blood Pressure Pulse Oximetry 93 93 92 Oxygen Delivery Fraction of Inspired Oxygen 03/29/25 20:41 03/29/25 20:45 03/29/25 22:00 Temperature 97.5 F L Pulse Rate 117 H 117 H 102 H Respiratory Rate 34 H 34 H 28 H Blood Pressure 123/110 H 143/83 H Pulse Oximetry 91 92 95 Oxygen Delivery Fraction of Inspired Oxygen 03/29/25 22:00 03/30/25 00:00 03/30/25 00:00 Temperature 98.5 F 98.5 F Pulse Rate 72 72 Respiratory Rate 24 H 24 H Blood Pressure 146/73 H 146/73 H Pulse Oximetry 93 94 Oxygen Delivery Room Air Fraction of Inspired Oxygen 03/30/25 00:00 03/30/25 02:00 03/30/25 02:00 Temperature 98.2 F Pulse Rate 115 H 115 H 117 H Respiratory Rate 24 H Blood Pressure 113/77 Pulse Oximetry 92 Oxygen Delivery Fraction of Inspired Oxygen 03/30/25 02:04 03/30/25 02:07 03/30/25 04:00 Temperature 98.5 F Pulse Rate 114 H 114 H 110 H Respiratory Rate 20 20 21 H Blood Pressure 112/74 Pulse Oximetry 92 97 Oxygen Delivery Room Air Fraction of Inspired Oxygen 03/30/25 04:00 03/30/25 04:00 03/30/25 06:00 Temperature Pulse Rate 106 H 99 Respiratory Rate Blood Pressure Pulse Oximetry Oxygen Delivery Room Air Fraction of Inspired Oxygen 03/30/25 06:00 03/30/25 07:41 03/30/25 08:00 Temperature 97.7 F Pulse Rate 91 Respiratory Rate 23 H Blood Pressure 132/85 Pulse Oximetry 95 93 Oxygen Delivery Room Air Room Air Fraction of Inspired Oxygen 03/30/25 08:00 03/30/25 08:00 03/30/25 10:00 Temperature 97.5 F L Pulse Rate 100 100 93 Respiratory Rate 18 Blood Pressure 130/86 Pulse Oximetry 92 Oxygen Delivery Fraction of Inspired Oxygen 03/30/25 11:56 03/30/25 12:00 Temperature 97.2 F L Pulse Rate 91 Respiratory Rate 17 Blood Pressure 121/65 Pulse Oximetry 92 Oxygen Delivery Room Air Fraction of Inspired Oxygen Intake/Output Intake/Output: Intake & Output 03/27/25 03/28/25 03/29/25 03/30/25 23:59 23:59 23:59 23:59 Intake Total 1050 4150 220 Output Total 352 800 575 Balance 698 3350 -355 Meds/Results Medications: Active Medications Generic Name Dose Route Start Last Admin Trade Name Freq PRN Reason Stop Dose Admin Acetaminophen 650 mg 03/29/25 19:45 Acetaminophen 325 Mg Tablet PO Q4H PRN Mild Pain (1-3) or Fever Albuterol 2 puff 03/30/25 02:00 03/30/25 07:38 Albuterol Sulfate (*Sp) Aerosol 1 Puff INHALATION 2 puff Q6HRT DANIELE Administration Albuterol 2.5 mg 03/29/25 21:50 Albuterol Sulfate Neb 2.5 Mg/3 Ml Inh INHALATION Q4-6H PRN Shortness Of Breath Atorvastatin Calcium 40 mg 03/30/25 09:00 03/30/25 08:46 Atorvastatin 40 Mg Tablet PO 40 mg DAILY DANIELE Administration Clonazepam 1 mg 03/30/25 12:21 Clonazepam (*Crx) 0.5 Mg Tablet PO TID PRN anxiety Clopidogrel Bisulfate 75 mg 03/30/25 09:00 03/30/25 08:47 Clopidogrel Bisulfate 75 Mg Tablet PO 75 mg QAM DANIELE Administration Duloxetine HCl 30 mg 03/30/25 09:00 03/30/25 09:57 Duloxetine Hcl 30 Mg Capsule.Dr PO Not Given DAILY DANIELE Folic Acid 1 mg 03/30/25 09:00 03/30/25 09:57 Folic Acid 1 Mg Tablet PO Not Given DAILY DANIELE Heparin Sodium (Beef Lung) 50 units 03/30/25 09:00 03/30/25 07:46 Heparin Flush 50 Units/5 Ml Syringe IV PUSH Not Given QAM DANIELE Heparin Sodium (Beef Lung) 50 units 03/29/25 23:50 Heparin Flush 50 Units/5 Ml Syringe IV PUSH PRN PRN after intermittent infusion Heparin Sodium (Beef Lung) 50 units 03/29/25 23:50 Heparin Flush 50 Units/5 Ml Syringe IV PUSH PRN PRN after blood draws Heparin Sodium (Porcine) 500 units 03/29/25 23:50 Heparin Sodium Lock Flush 500 Units/5 Ml Syringe IV PUSH PRN PRN see comments below Ceftriaxone Sodium 1 gm/ 50 mls @ 100 mls/hr 03/29/25 18:00 03/29/25 18:53 Sodium Chloride IVPB Infused Q24H DANIELE Infusion Loratadine 10 mg 03/30/25 09:00 03/30/25 08:48 Loratadine 10 Mg Tablet PO 10 mg QAM DANIELE Administration Montelukast Sodium 10 mg 03/29/25 21:00 03/30/25 00:47 Montelukast Sodium 10 Mg Tablet PO 10 mg HS DANIELE Administration Fluticasone/Salmeterol 2 puff 03/29/25 20:00 03/30/25 07:39 Fluticasone/Salmeterol 45-21 Mcg Inhaler 1 Puff INHALATION 2 puff Q12HRT DANIELE Administration Senna 17.2 mg 03/30/25 09:00 03/30/25 10:01 Sennosides 8.6 Mg Tablet PO Not Given BID DANIELE Senna/Docusate Sodium 2 tab 03/29/25 17:00 03/30/25 10:00 Senna/Docusate Sodium Tablet PO Not Given BID DANIELE Sodium Chloride 10 ml 03/30/25 06:00 03/30/25 07:20 Central Line Flush IV PUSH 10 ml Q8HR DANIELE Administration Triamterene/Hydrochlorothiazide 1 tab 03/30/25 09:00 03/30/25 08:46 Triamterene 37.5 Mg/Hctz 25 Mg (Maxzide) Tablet PO 1 tab QAM DANIELE Administration Verapamil HCl 180 mg 03/30/25 08:00 03/30/25 08:47 Verapamil Hcl 180 Mg Tablet Er PO 180 mg DAILY@0800 DANIELE Administration Vitamin D 125 mcg 03/30/25 09:00 03/30/25 08:45 Cholecalciferol (Vitamin D3) 125 Mcg (5,000 Units) Tablet PO 125 mcg DAILY DANIELE Administration Radiology Results: ITS Impressions Chest X-Ray 03/28/25 17:17 Impression: No acute cardiopulmonary abnormality. Head CT 03/28/25 17:39 Impression: Age-indeterminate focus of left frontal subcortical ischemia. No hemorrhage. MRI recommended Head/Neck CTA 03/29/25 08:51 IMPRESSION: CTA NECK: 1. No ICA stenosis or other acute arterial abnormality. 2. Lytic bony metastatic disease C2, C5. 3. Lytic bony metastatic disease right scapula with large associated soft tissue component. CTA HEAD: 1. No large vessel arterial occlusive disease or other acute arterial abnormality. Labs Labs: Laboratory Results - last 24 hr 03/29/25 03/29/25 03/29/25 17:47 19:40 22:55 WBC 6.0 RBC 2.58 L Hgb 7.7 L 9.3 L Hct 23.9 L 29.0 L MCV 92.6 MCH 29.8 MCHC 32.2 RDW 16.5 H Plt Count 124 L MPV 9.3 Immature Gran % (Auto) 4.8 H Neut % (Auto) 83.0 H Lymph % (Auto) 4.0 L [place] % (Auto) 7.7 Eos % (Auto) 0.3 Baso % (Auto) 0.2 Lymph # (Auto) 0.24 L [place] # (Auto) 0.5 Eos # (Auto) 0.0 Baso # (Auto) 0.0 Abs Immat Gran (auto) 0.29 H Absolute Neuts (auto) 5.0 Absolute Nucleated RBC 0.000 Nucleated RBC % 0.0 Sodium 131 L Potassium 2.9 L Chloride 101 Carbon Dioxide 28 Anion Gap 2 L BUN 14 D Creatinine 0.63 L Estim Creat Clear Calc 69 Estimated GFR > 60 Glucose 86 POC Capillary Glucose 94 Calcium 11.7 H Magnesium 1.4 L Total Bilirubin 0.5 AST 25 ALT 27 Alkaline Phosphatase 85 Total Protein 5.2 L Albumin 2.5 L Vitamin B12 Folate 03/30/25 03/30/25 04:23 04:24 WBC 7.1 RBC 2.78 L Hgb 8.4 L Hct 25.9 L MCV 93.2 MCH 30.2 MCHC 32.4 RDW 16.4 H Plt Count 128 L MPV 9.7 Immature Gran % (Auto) 5.9 H Neut % (Auto) 79.8 H Lymph % (Auto) 5.2 L [place] % (Auto) 8.4 Eos % (Auto) 0.3 Baso % (Auto) 0.4 Lymph # (Auto) 0.37 L [place] # (Auto) 0.6 Eos # (Auto) 0.0 Baso # (Auto) 0.0 Abs Immat Gran (auto) 0.42 H Absolute Neuts (auto) 5.6 Absolute Nucleated RBC 0.000 Nucleated RBC % 0.0 Sodium 132 L Potassium 4.5 Chloride 101 Carbon Dioxide 28 Anion Gap 3 L BUN 10 Creatinine 0.62 L Estim Creat Clear Calc 70 Estimated GFR > 60 Glucose 84 POC Capillary Glucose Calcium 10.8 H Magnesium 1.4 L Total Bilirubin AST ALT Alkaline Phosphatase Total Protein Albumin Vitamin B12 > 1000.0 H Folate > 20.0 H Quality VTE Prophylaxis VTE prophylaxis: pharmacologic ordered
--- NOTE | 2025-03-30 13:19 | ECG_ITS ---
Test Date: 2025-03-30 13:33:27 Measurements Intervals [place] Rate: 97 P: 86 FL: 171 QRS: 9 QRSD: 143 T: 90 QT: 370 QTc: 470 Interpretive Statements SINUS RHYTHM WITH OCCASIONAL SUPRAVENTRICULAR PREMATURE COMPLEXES LEFT BUNDLE BRANCH BLOCK [120+ ms QRS DURATION, 80+ ms Q/S IN V1/V2, 85+ ms R IN I/aVL/V5/V6] Compared to ECG 03/28/2025 15:50:16 Sinus tachycardia no longer present Electronically Signed On 03-30-2025 14:45:37 CDT by Rufino Gabriel M.D.
--- NOTE | 2025-03-30 16:59 | PC.NURSE ---
On 03/30/25, the student, Og Olivo and Clare Yen, provided care and completed varinode documentation on this patient. I have reviewed the student's documentation and agree with the findings.Juan Manuel, MSN, RN
[2025-03-30] MEDS: cefTRIAXone 1 GM in SODIUM CHLORIDE 0.9% IV 50 ML 100 ML IVPB (18:22)
[2025-03-30] MEDS: ACETAMINOPHEN 325 MG TABLET 650 MG PO (22:48)
[2025-03-31] VITALS (22 sets, daily range): BP systolic 93–139; BP diastolic 53–102; PULSE 72–117; RESP 16–22; TEMP 36.4–37.1; O2SAT 93–99
--- NOTE | 2025-03-31 00:05 | PC.NURSE ---
This nurse called and spoke with pt's daughter, Sabrina, at this time regarding a transfer acceptance at [facility]. The daughter stated that I was under the impression that we would get the MRI results before transferring my mom. This nurse offered to call the Neurologist data integrity consultant to have him review the MRI results. Daughter agreed. Dr. Edmond contacted and made aware of situation by this nurse @ [id number]. Dr. Edmond stated that there is no need to transfer pt to [facility] as we have did a stroke work up here and there is nothing acute showing. This nurse called Sabrina back @ 0010 and she agreed that she wanted her mom to stay at this facility as she loves the care team that is taking care of her. Charge Nurse made aware and transfer canceled.
[2025-03-31] MEDS: ALBUTEROL SULFATE (*SP) AEROSOL 1 PUFF 2 PUFF INHALATION ×4 (02:55→20:52)
[2025-03-31] MEDS: CENTRAL LINE FLUSH 10 ML IV PUSH ×3 (06:35→21:28)
[2025-03-31 06:44] LABS: Hematocrit 25.8 % (37.0-47.0); Hemoglobin 8.2 g/dL (12.0-15.0); Immature Granulocyte Percent A 9.8 % (0-0.5); Lymphocytes Absolute Auto 0.33 K/mm3 (0.9-3.2); Mean Corpuscular HGB Conc 31.8 g/dl (32-36); Mean Corpuscular Hemoglobin 29.4 pg (26-34); Mean Corpuscular Volume 92.5 fl (80-100); Nucleated Red Blood Cells Absolute Auto 0.020 K/mm3 (0.0-0.012); Nucleated Red Blood Cells Perc 0.3 % (0.0-0.2); Platelet Count Result 124 k/mm3 (150-375); Red Blood Count 2.79 M/mm3 (4.2-5.4); White Blood Count 7.0 K/mm3 (4.5-10.0)
[2025-03-31 07:09] LABS: Anion Gap 3 mmol/L (4-12); Blood Urea Nitrogen 10 mg/dL (7-17); Calcium 9.9 mg/dL (8.4-10.2); Carbon Dioxide 30 mmol/L (22-30); Chloride 94 mmol/L (98-107); Estimated CRCL calculation 64 ml/min; Estimated Glomerular Filt Rate > 60; Glucose 82 mg/dL (65-110); Magnesium 2.3 mg/dL (1.6-2.3); Potassium 3.0 mmol/L (3.4-5.0); Sodium 127 mmol/L (137-145)
[2025-03-31] MEDS: FLUTICASONE/SALMETEROL 45-21 MCG INHALER 1 PUFF 2 PUFF INHALATION ×2 (07:40→20:52)
[2025-03-31] MEDS: ATORVASTATIN 40 MG TABLET PO (08:38)
[2025-03-31] MEDS: VERAPAMIL HCL 180 MG TABLET ER PO (08:39)
[2025-03-31] MEDS: TRIAMTERENE 37.5 MG/HCTZ 25 MG (MAXZIDE) TABLET 1 TAB PO (08:39)
[2025-03-31] MEDS: CLOPIDOGREL BISULFATE 75 MG TABLET PO (08:39)
[2025-03-31] MEDS: FOLIC ACID 1 MG TABLET PO (08:39)
[2025-03-31] MEDS: LORATADINE 10 MG TABLET PO (08:39)
[2025-03-31] MEDS: CHOLECALCIFEROL (VITAMIN D3) 125 MCG (5,000 UNITS) TABLET PO (08:39)
[2025-03-31] MEDS: clonazePAM (*CRX) 0.5 MG TABLET 1 MG PO ×2 (09:56→21:27)
[2025-03-31] MEDS: POTASSIUM CHLORIDE 20 MEQ PACKET (FOR LIQUID) 40 MEQ PO ×2 (09:56→17:26)
[2025-03-31] MEDS: PERMETHRIN 1% LIQUID 59 ML BOTTLE 1 APPLIC TOPICAL (13:50)
--- NOTE | 2025-03-31 14:29 | PM.IMPN ---
Progress Note: A&P Assessment and Plan (1) Hypercalcemia of malignancy: Code(s): E83.52 - Hypercalcemia Status: Acute (2) Hypokalemia: Code(s): E87.6 - Hypokalemia Status: Acute (3) Urinary tract infection: Code(s): N39.0 - Urinary tract infection, site not specified Status: Acute (4) Ovarian cancer: Code(s): C56.9 - Malignant neoplasm of unspecified ovary Status: Acute (5) COPD (chronic obstructive pulmonary disease): Qualifiers: COPD type: unspecified COPD Qualified Code(s): J44.9 - Chronic obstructive pulmonary disease, unspecified Code(s): J44.9 - Chronic obstructive pulmonary disease, unspecified Status: Acute (6) Former smoker: Code(s): Z87.891 - Personal history of nicotine dependence Status: Acute (7) Acute cerebrovascular accident (CVA): Code(s): I63.9 - Cerebral infarction, unspecified Status: Acute Plan 59-year-old female with past medical history of stage IV ovarian cancer with metastasis presenting with worsening mental status. She had recent clearly experiencing weakness, reduced appetite, slurring speech These symptoms were a significant change from the patient's baseline just days prior. Patient has been treated with chemo, radiation in the past, currently on maintenance therapy with Keytruda. , CT head without contrast showed age indeterminate focus of left frontal subcortical ischemia, no hemorrhage, CTA head and neck last night showed no ICA stenosis or other acute arterial abnormality, lytic bony metastatic disease C2, C5, lytic bony metastatic disease right scapula with large associated soft tissue component, no large vessel arterial occlusion disease or other acute arterial abnormality. Blood workup showed calcium level of 14.4 . Received calcitonin, zoledronic acid hypercalcemia. 1. Altered mental status/acute encephalopathy: CT with age indeterminate focus of left frontal subcortical ischemia Patient is awake but confused MRI brain unremarkable Echocardiogram with EF of 40-45% with regional wall motion abnormality, PFO Cardiology consult Continue tele monitoring Neurology following Continue with Plavix, statin Appreciate speech help 2. UTI: Continue with ceftriaxone Urine culture growing g negatives, follow further 3. Hypercalcemia: Likely secondary to malignancy Received zoledronic acid, calcitonin, IV fluids in the ER Calcium levels have improved Recheck calcium levels in morning 4. Hypomagnesemia: Magnesium levels have improved 5. History of metastatic cancer: MRI brain unremarkable Patient follows up with Oncology at [facility] bed at [facility] 6. History of hypertension: Continue bedtime triamterene, hydrochlorothiazide, verapamil 7. Code status: Full 8. DVT prophylaxis: Heparin subQ 9. Disposition: Pending improvement Time Spent With Patient Time: 38 minutes Subjective Date/time seen: 03/31/25 14:29 Interval history: More awake this morning, anxious, still confused Review of Systems Review of Systems: All systems reviewed & are unremarkable except as noted in HPI and below Exam Narrative: General: Awake HEENT: Clear conjunctiva, Neck: Supple. Respiratory: clear to auscultation bilaterally. Cardiovascular: Regular rate and rhythm with S1-S2. Gastrointestinal: Abdomen is soft, non-tender, and non-distended with positive bowel sounds. Skin: Warm and dry. No rash or lesions on limited exam. Extremities: No edema. Neurological: Awake, confused Objective Data Vital Signs Vital Signs: Vital Signs - 24 hr 03/30/25 15:59 03/30/25 16:00 03/30/25 16:00 Temperature 97.9 F Pulse Rate 87 82 Respiratory Rate 18 Blood Pressure 107/62 Pulse Oximetry 91 Oxygen Delivery Room Air Oxygen Flow Rate 03/30/25 17:00 03/30/25 18:00 03/30/25 20:00 Temperature 98.6 F Pulse Rate 85 80 Respiratory Rate 18 Blood Pressure 102/49 L Pulse Oximetry 91 94 Oxygen Delivery Nasal Cannula Oxygen Flow Rate 2 03/30/25 20:00 03/30/25 20:00 03/30/25 20:37 Temperature Pulse Rate 95 87 Respiratory Rate 16 Blood Pressure Pulse Oximetry 97 Oxygen Delivery Nasal Cannula Oxygen Flow Rate 2 03/30/25 22:00 03/31/25 00:00 03/31/25 00:00 Temperature 98.5 F Pulse Rate 88 83 Respiratory Rate 18 Blood Pressure 98/55 L Pulse Oximetry 99 96 Oxygen Delivery Nasal Cannula Oxygen Flow Rate 1 03/31/25 00:00 03/31/25 02:00 03/31/25 02:55 Temperature Pulse Rate 80 72 82 Respiratory Rate 16 Blood Pressure Pulse Oximetry Oxygen Delivery Oxygen Flow Rate 03/31/25 04:00 03/31/25 04:00 03/31/25 04:00 Temperature 98.3 F Pulse Rate 75 73 Respiratory Rate 16 Blood Pressure 109/89 Pulse Oximetry 97 95 Oxygen Delivery Room Air Oxygen Flow Rate 03/31/25 06:00 03/31/25 07:40 03/31/25 08:00 Temperature Pulse Rate 77 94 Respiratory Rate 18 Blood Pressure Pulse Oximetry 99 Oxygen Delivery Room Air Oxygen Flow Rate 03/31/25 08:00 03/31/25 08:11 03/31/25 09:58 Temperature 97.5 F L Pulse Rate 93 89 117 H Respiratory Rate 18 Blood Pressure 114/75 Pulse Oximetry 95 Oxygen Delivery Oxygen Flow Rate 03/31/25 10:59 03/31/25 11:27 03/31/25 11:59 Temperature 97.7 F Pulse Rate 103 H Respiratory Rate 22 H Blood Pressure 139/102 H Pulse Oximetry 93 95 98 Oxygen Delivery Nasal Cannula Nasal Cannula Oxygen Flow Rate 2 2 03/31/25 11:59 03/31/25 12:00 03/31/25 12:00 Temperature 97.7 F Pulse Rate 104 H 103 H 105 H Respiratory Rate 22 H Blood Pressure 110/60 139/102 H Pulse Oximetry 98 Oxygen Delivery Oxygen Flow Rate Intake/Output Intake/Output: Intake & Output 03/28/25 03/29/25 03/30/25 03/31/25 23:59 23:59 23:59 23:59 Intake Total 1050 4150 340 340 Output Total 278 123 4429 400 Balance 698 3350 -1015 -60 Meds/Results Medications: Active Medications Generic Name Dose Route Start Last Admin Trade Name Freq PRN Reason Stop Dose Admin Acetaminophen 650 mg 03/29/25 19:45 03/30/25 22:48 Acetaminophen 325 Mg Tablet PO 650 mg Q4H PRN Administration Mild Pain (1-3) or Fever Albuterol 2 puff 03/30/25 02:00 03/31/25 14:22 Albuterol Sulfate (*Sp) Aerosol 1 Puff INHALATION 2 puff Q6HRT DANIELE Administration Albuterol 2.5 mg 03/29/25 21:50 Albuterol Sulfate Neb 2.5 Mg/3 Ml Inh INHALATION Q4-6H PRN Shortness Of Breath Atorvastatin Calcium 40 mg 03/30/25 09:00 03/31/25 08:38 Atorvastatin 40 Mg Tablet PO 40 mg DAILY DANIELE Administration Clonazepam 1 mg 03/30/25 12:21 03/31/25 09:56 Clonazepam (*Crx) 0.5 Mg Tablet PO 1 mg TID PRN Administration anxiety Clopidogrel Bisulfate 75 mg 03/30/25 09:00 03/31/25 08:39 Clopidogrel Bisulfate 75 Mg Tablet PO 75 mg QAM DANIELE Administration Duloxetine HCl 30 mg 03/30/25 09:00 03/31/25 08:39 Duloxetine Hcl 30 Mg Capsule.Dr PO 30 mg DAILY DANIELE Administration Folic Acid 1 mg 03/30/25 09:00 03/31/25 08:39 Folic Acid 1 Mg Tablet PO 1 mg DAILY DANIELE Administration Heparin Sodium (Beef Lung) 50 units 03/30/25 09:00 03/31/25 08:40 Heparin Flush 50 Units/5 Ml Syringe IV PUSH 50 units QAM DANIELE Administration Heparin Sodium (Beef Lung) 50 units 03/29/25 23:50 Heparin Flush 50 Units/5 Ml Syringe IV PUSH PRN PRN after intermittent infusion Heparin Sodium (Beef Lung) 50 units 03/29/25 23:50 Heparin Flush 50 Units/5 Ml Syringe IV PUSH PRN PRN after blood draws Heparin Sodium (Porcine) 500 units 03/29/25 23:50 Heparin Sodium Lock Flush 500 Units/5 Ml Syringe IV PUSH PRN PRN see comments below Heparin Sodium (Porcine) 5,000 units 03/30/25 14:00 03/31/25 06:35 Heparin Sodium 5,000 Units/Ml Vial SUB-Q 5,000 units Q8HR DANIELE Administration Ceftriaxone Sodium 1 gm/ 50 mls @ 100 mls/hr 03/29/25 18:00 03/30/25 18:22 Sodium Chloride IVPB 100 mls/hr Q24H DANIELE Administration Loratadine 10 mg 03/30/25 09:00 03/31/25 08:39 Loratadine 10 Mg Tablet PO 10 mg QAM DANIELE Administration Montelukast Sodium 10 mg 03/29/25 21:00 03/30/25 22:00 Montelukast Sodium 10 Mg Tablet PO 10 mg HS DANIELE Administration Potassium Chloride 40 meq 03/31/25 09:25 03/31/25 09:56 Potassium Chloride 20 Meq Packet (For Liquid) PO 03/31/25 17:01 40 meq BID DANIELE Administration Fluticasone/Salmeterol 2 puff 03/29/25 20:00 03/31/25 07:40 Fluticasone/Salmeterol 45-21 Mcg Inhaler 1 Puff INHALATION 2 puff Q12HRT DANIELE Administration Senna 17.2 mg 03/30/25 09:00 03/31/25 08:40 Sennosides 8.6 Mg Tablet PO Not Given BID DANIELE Senna/Docusate Sodium 2 tab 03/29/25 17:00 03/31/25 08:39 Senna/Docusate Sodium Tablet PO Not Given BID DANIELE Sodium Chloride 10 ml 03/30/25 06:00 03/31/25 06:35 Central Line Flush IV PUSH 10 ml Q8HR DANIELE Administration Triamterene/Hydrochlorothiazide 1 tab 03/30/25 09:00 03/31/25 08:39 Triamterene 37.5 Mg/Hctz 25 Mg (Maxzide) Tablet PO 1 tab QAM DANIELE Administration Verapamil HCl 180 mg 03/30/25 08:00 03/31/25 08:39 Verapamil Hcl 180 Mg Tablet Er PO 180 mg DAILY@0800 DANIELE Administration Vitamin D 125 mcg 03/30/25 09:00 03/31/25 08:39 Cholecalciferol (Vitamin D3) 125 Mcg (5,000 Units) Tablet PO 125 mcg DAILY DANIELE Administration Radiology Results: ITS Impressions Chest X-Ray 03/28/25 17:17 Impression: No acute cardiopulmonary abnormality. Head CT 03/28/25 17:39 Impression: Age-indeterminate focus of left frontal subcortical ischemia. No hemorrhage. MRI recommended Head/Neck CTA 03/29/25 08:51 IMPRESSION: CTA NECK: 1. No ICA stenosis or other acute arterial abnormality. 2. Lytic bony metastatic disease C2, C5. 3. Lytic bony metastatic disease right scapula with large associated soft tissue component. CTA HEAD: 1. No large vessel arterial occlusive disease or other acute arterial abnormality. Brain MRI 03/30/25 15:18 IMPRESSION: 1. Scattered ossific white matter T2 hyperintensity consistent with chronic small vessel ischemic disease. No acute intracranial process. Labs Labs: Laboratory Results - last 24 hr 03/31/25 06:30 WBC 7.0 RBC 2.79 L Hgb 8.2 L Hct 25.8 L MCV 92.5 MCH 29.4 MCHC 31.8 L RDW 17.2 H Plt Count 124 L MPV 9.2 Immature Gran % (Auto) 9.8 H Neut % (Auto) 78.0 H Lymph % (Auto) 4.7 L [place] % (Auto) 6.9 Eos % (Auto) 0.3 Baso % (Auto) 0.3 Lymph # (Auto) 0.33 L [place] # (Auto) 0.5 Eos # (Auto) 0.0 Baso # (Auto) 0.0 Abs Immat Gran (auto) 0.68 H Absolute Neuts (auto) 5.4 Absolute Nucleated RBC 0.020 H Nucleated RBC % 0.3 H Sodium 127 L Potassium 3.0 L Chloride 94 L Carbon Dioxide 30 Anion Gap 3 L BUN 10 Creatinine 0.68 L Estim Creat Clear Calc 64 Estimated GFR > 60 Glucose 82 Calcium 9.9 Magnesium 2.3 Quality VTE Prophylaxis VTE prophylaxis: pharmacologic ordered
--- NOTE | 2025-03-31 14:40 | PM.CNCAR ---
Assessment and Plan Assessment and plan (1) Cardiomyopathy: Code(s): I42.9 - Cardiomyopathy, unspecified Status: Acute (2) Patent foramen ovale with right to left shunt: Code(s): Q21.12 - Patent foramen ovale Status: Acute Plan Diagnosis: -New cardiomyopathy with LVEF of 40% and regional wall motion abnormalities with hypokinesis of inferior, inferoseptal and anteroseptal lopez; no chest pain or shortness of breath -PFO with [id number] shunt; on room air at rest -? Acute CVA; presented with slurred speech and inability to form full sentences-neurology following; MRI brain without any acute process -Electrolyte abnormalities: Hyponatremia, hypercalcemia, hypokalemia -Stage IV ovarian cancer with bony mets -Hypertension Plan: -Initiate guideline directed medical therapy for cardiomyopathy. Add metoprolol 12.5 mg p.o. b.i.d. Add lisinopril 2.5 mg daily. Add empagliflozin 10 mg daily. Hold home blood pressure meds to make room for guideline directed medical therapy -Patient does not have any chest pain or shortness of breath. No urgent indication for ischemia evaluation at this time. Recommend medical therapy with Plavix 75 mg daily, statin, beta-teddy. Will need oncology input regarding prognosis of her cancer. This will help determine further cardiac evaluation and therapies -Patient has a PFO with [id number]-ghlj shunt. She is maintaining her oxygen saturations on room air at rest. Recommend evaluating for any oxygen desaturation with activity. If acute CVA is confirmed and there is no AFib, then PFO closure would be recommended. However patient has stage IV ovarian cancer with mets and no procedures indicated if prognosis is less than 1 year. Continue medical therapy with antiplatelet Plavix 75 mg daily -Patient has neurological symptoms suggestive of acute CVA. However brain MRI is negative for any acute process. Will need Neurology to clarify if this is acute stroke or not -Monitor on telemetry for any AFib. So far I have not seen any history of AFib or telemetry/ECG with AFib -Recommend bilateral lower extremity venous Dopplers to rule out DVT History of Present Illness History of Present Illness Consult date/time: 03/31/25 14:40 Reason For Visit: UTI, hyponatremia, hypercalcemia, acute CVA-susp Narrative: 59-year-old female with history of hypertension, metastatic ovarian cancer diagnosed in March 2024 status post chemotherapy, radiation therapy currently and now on maintenance therapy with Keytruda (her oncologist is at [facility]) was admitted with chief complaint of slurred speech and inability to form coherent sentences since last Sunday. CT head showed possible left frontal infarct of indeterminate MRI brain showed chronic small vessel ischemic disease without any acute intracranial pathology. CTA head and neck showed no large vessel occlusion. Lytic bony metastatic disease was noted in C2, C5 spine and right scapula. Urology was consulted. MRI brain showed chronic small vessel ischemic disease with no acute intracranial process. EKG showed sinus rhythm with PACs and left bundle branch block. ECHO showed mild depressed systolic function of 40-45% and regional wall motion abnormalities and a PFO with dqxip-jh-dyez shunt. Cardiology is consulted for further recommendations. Patient has slurred speech and is unable to make full sentences. She denies any Chest pain, shortness of breath, dizziness, lightheadedness, palpitations, recent weight gain, leg swelling, orthopnea, PND, presyncope, or syncope. Workup: Hemoglobin: 8.2 Sodium: 127 Potassium: 3 Calcium: 14.4 at presentation EKG: Sinus rhythm, PACs, left bundle-branch block TTE: Mildly reduced systolic function of 40-45%, regional wall motion abnormalities with mild hypokinesis of inferior, inferoseptal and anteroseptal lopez, PFO with brhoa-lx-gajn shunt MRI brain: Scattered ossific white matter T2 hyperintensity consistent with chronic small vessel ischemic disease. No acute intracranial process. Chest x-ray: No acute cardiopulmonary pathology CTA head and neck: CTA NECK: 1. No ICA stenosis or other acute arterial abnormality. 2. Lytic bony metastatic disease C2, C5. 3. Lytic bony metastatic disease right scapula with large associated soft tissue component. CTA HEAD: 1. No large vessel arterial occlusive disease or other acute arterial abnormality. Review of Systems Review of Systems: Complete review of systems was performed and pertinent positives are mentioned in the [facility] Past Medical History Medical History Hypertension Benign breast lumps Surgical History Surgical History H/O: hysterectomy Family History Family History Sibling Diabetes mellitus Mother Breast cancer in female Daughter Hypertension Other Unknown family medical history Social History Social History Smoking packs per day: 1 Smoking cigarettes per day: 20.0 Years smoked: 30 Smoking pack-years: 30.00 Smoking status: Former smoker Tobacco type: cigarettes Smokeless tobacco user: other Second hand tobacco smoke exposure: No Smoking end date: 07/09/15 Additional smoking assessment comments: Smokes marijuana and chews nicotine gum Alcohol intake: former Drinks per week: 0 Substance use: current Substance use type: marijuana Last use: a week ago Lack of Transportation: YES Lack of Food: Never True Current Housing: I Have Housing Concerned About Future Housing: No Difficulty Paying Gas/Electric Bills: No Difficulty Paying for Meds: No Currently Unemployed: No Education: High School Diploma/GED Difficulty w/ Childcare or Family Care: No Living arrangements: with family Occupation/Education: other Gender identity (if verbalized by the patient): Female Spiritual care concerns: No Meds Home Medications and Allergies Home Medications ?Medication ?Instructions ?Recorded ?Confirmed ?Type inhalational spacing device #1 ea 01/27/20 03/29/25 Rx ([facility] spacer) Symbicort 80 mcg-4.5 mcg/actuation 2 puff inhalation Q12H #10.2 grams 08/04/21 03/29/25 Rx HFA aerosol inhaler (budesonide-formoterol) albuterol sulfate 90 mcg/actuation 2 inh inhalation Q6H PRN shortness 11/08/21 03/29/25 Rx aerosol inhaler of breath or wheezing #1 ea cholecalciferol (vitamin D3) 125 125 mcg PO DAILY 11/08/21 03/29/25 History mcg (5,000 unit) capsule clonazepam 1 mg tablet 1 mg PO TID 11/08/21 03/29/25 History triamterene 37.5 1 cap PO DAILY 11/08/21 03/29/25 History mg-hydrochlorothiazide 25 mg capsule verapamil 180 mg 24 hr 180 mg PO DAILY 11/08/21 03/29/25 History capsule,extended release albuterol sulfate 2.5 mg/3 mL See Rx Instructions .Route 07/31/22 03/29/25 Rx (0.083 %) solution for nebulization .COMPLEX #180 mL atorvastatin 40 mg tablet 40 mg PO DAILY 11/01/22 03/29/25 History duloxetine 30 mg capsule,delayed 30 mg PO DAILY 03/29/25 03/29/25 History release folic acid 1 mg tablet 1 mg PO DAILY 03/29/25 03/29/25 History loratadine 10 mg capsule 10 mg PO Q24H 03/29/25 03/29/25 History montelukast 10 mg tablet 10 mg PO QPM 03/29/25 03/29/25 History ondansetron HCl 8 mg tablet 8 mg PO Q12H PRN nausea and 03/29/25 03/29/25 History vomiting sennosides 8.6 mg capsule (senna) 17.2 mg PO BID 03/29/25 03/29/25 History Allergies Allergy/AdvReac Type Severity Reaction Status Date / Time mushroom Allergy Severe Anaphylaxis Verified 03/29/25 22:16 varenicline (From Chantix) Allergy Severe Depression Verified 03/29/25 22:16 bupropion (From Wellbutrin) AdvReac Severe Depression Verified 03/29/25 22:16 Vital Signs Vital Signs - 24 hr 03/30/25 15:59 03/30/25 16:00 03/30/25 16:00 Temperature 36.6 C Pulse Rate 87 82 Respiratory Rate 18 Blood Pressure 107/62 Pulse Oximetry 91 Oxygen Delivery Room Air Oxygen Flow Rate 03/30/25 17:00 03/30/25 18:00 03/30/25 20:00 Temperature 37.0 C Pulse Rate 85 80 Respiratory Rate 18 Blood Pressure 102/49 L Pulse Oximetry 91 94 Oxygen Delivery Nasal Cannula Oxygen Flow Rate 2 03/30/25 20:00 03/30/25 20:00 03/30/25 20:37 Temperature Pulse Rate 95 87 Respiratory Rate 16 Blood Pressure Pulse Oximetry 97 Oxygen Delivery Nasal Cannula Oxygen Flow Rate 2 03/30/25 22:00 03/31/25 00:00 03/31/25 00:00 Temperature 36.9 C Pulse Rate 88 83 Respiratory Rate 18 Blood Pressure 98/55 L Pulse Oximetry 99 96 Oxygen Delivery Nasal Cannula Oxygen Flow Rate 1 03/31/25 00:00 03/31/25 02:00 03/31/25 02:55 Temperature Pulse Rate 80 72 82 Respiratory Rate 16 Blood Pressure Pulse Oximetry Oxygen Delivery Oxygen Flow Rate 03/31/25 04:00 03/31/25 04:00 03/31/25 04:00 Temperature 36.8 C Pulse Rate 75 73 Respiratory Rate 16 Blood Pressure 109/89 Pulse Oximetry 97 95 Oxygen Delivery Room Air Oxygen Flow Rate 03/31/25 06:00 03/31/25 07:40 03/31/25 08:00 Temperature Pulse Rate 77 94 Respiratory Rate 18 Blood Pressure Pulse Oximetry 99 Oxygen Delivery Room Air Oxygen Flow Rate 03/31/25 08:00 03/31/25 08:11 03/31/25 09:58 Temperature 36.4 C L Pulse Rate 93 89 117 H Respiratory Rate 18 Blood Pressure 114/75 Pulse Oximetry 95 Oxygen Delivery Oxygen Flow Rate 03/31/25 10:59 03/31/25 11:27 03/31/25 11:59 Temperature 36.5 C Pulse Rate 103 H Respiratory Rate 22 H Blood Pressure 139/102 H Pulse Oximetry 93 95 98 Oxygen Delivery Nasal Cannula Nasal Cannula Oxygen Flow Rate 2 2 03/31/25 11:59 03/31/25 12:00 03/31/25 12:00 Temperature 36.5 C Pulse Rate 104 H 103 H 105 H Respiratory Rate 22 H Blood Pressure 110/60 139/102 H Pulse Oximetry 98 Oxygen Delivery Oxygen Flow Rate Exam Narrative: General: Oriented to place and person, appears drowsy Neck: Supple, no JVD Chest: Bilaterally clear to auscultation, no rales or rhonchi Cardiac: S1, S2 +, regular rate, regular rhythm, no murmurs or rubs Extremities: No pedal edema, no skin rash Neurologic: Oriented to place and person, she has slurred speech and not able to form full sentences Results Labs and Meds 03/31/25 06:30 03/31/25 06:30 Lab results: CBC 03/31/25 Range/Units 06:30 WBC 7.0 (4.5-10.0) K/mm3 RBC 2.79 L (4.2-5.4) M/mm3 Hgb 8.2 L (12.0-15.0) g/dL Hct 25.8 L (37.0-47.0) % Plt Count 124 L (150-375) k/mm3 Lymph # (Auto) 0.33 L (0.9-3.2) K/mm3 [place] # (Auto) 0.5 (0.1-0.6) K/mm3 Eos # (Auto) 0.0 (0-0.3) K/mm3 Baso # (Auto) 0.0 (0.0-0.1) K/mm3 Comprehensive Metabolic Panel 03/31/25 Range/Units 06:30 Sodium 127 L (137-145) mmol/L Potassium 3.0 L (3.4-5.0) mmol/L Chloride 94 L (98-107) mmol/L Carbon Dioxide 30 (22-30) mmol/L BUN 10 (7-17) mg/dL Creatinine 0.68 L (0.7-1.0) mg/dL Glucose 82 (65-110) mg/dL Calcium 9.9 (8.4-10.2) mg/dL Intake and Output 03/30/25 03/31/25 03/31/25 23:59 07:59 15:59 Intake Total 120 50 290 Output Total 200 400 Balance -80 -350 290 Intake: Oral 120 50 290 Output: Urine 200 Catheter Urine 400 External/Condom 400 Patient Weight 03/31/25 23:59 Weight 65.1 kg
[2025-03-31] MEDS: cefTRIAXone 1 GM in SODIUM CHLORIDE 0.9% IV 50 ML 100 ML IVPB (17:26)
[2025-03-31] MEDS: MONTELUKAST SODIUM 10 MG TABLET PO (21:27)
[2025-03-31] MEDS: METOPROLOL TARTRATE 12.5 MG TABLET PO (21:27)
[2025-03-31] MEDS: ACETAMINOPHEN 325 MG TABLET 650 MG PO (21:28)
[2025-04-01] VITALS (20 sets, daily range): BP systolic 97–117; BP diastolic 53–90; PULSE 71–103; RESP 17–24; TEMP 36.3–36.9; O2SAT 93–97
[2025-04-01] MEDS: ALBUTEROL SULFATE (*SP) AEROSOL 1 PUFF 2 PUFF INHALATION ×4 (01:02→20:49)
[2025-04-01] MEDS: CENTRAL LINE FLUSH 10 ML IV PUSH ×3 (05:29→21:47)
[2025-04-01 05:48] LABS: Hematocrit 26.7 % (37.0-47.0); Hemoglobin 8.4 g/dL (12.0-15.0); Mean Corpuscular HGB Conc 31.5 g/dl (32-36); Mean Corpuscular Hemoglobin 29.7 pg (26-34); Mean Corpuscular Volume 94.3 fl (80-100); Platelet Count Result 141 k/mm3 (150-375); Red Blood Count 2.83 M/mm3 (4.2-5.4); White Blood Count 9.5 K/mm3 (4.5-10.0)
[2025-04-01 06:12] LABS: Anion Gap 4 mmol/L (4-12); Blood Urea Nitrogen 11 mg/dL (7-17); Calcium 10.0 mg/dL (8.4-10.2); Carbon Dioxide 25 mmol/L (22-30); Chloride 98 mmol/L (98-107); Estimated CRCL calculation 61 ml/min; Estimated Glomerular Filt Rate > 60; Glucose 80 mg/dL (65-110); Magnesium 1.8 mg/dL (1.6-2.3); Potassium 3.7 mmol/L (3.4-5.0); Sodium 127 mmol/L (137-145)
[2025-04-01 06:24] LABS: Band Neutrophils Percent 15 % (0-6); Eosinophils Absolute Manual 0.09 K/mm3 (0.02-0.50); Eosinophils Percent Manual 1 % (0-4); Lymphocytes Absolute Manual 0.85 K/mm3 (1.1-4.5); Lymphocytes Percent Manual 9 % (18-44); Monocytes Absolute Manual 0.19 K/mm3 (0.1-0.90); Monocytes Percent Manual 2 % (3-9); Neutrophils Absolute Manual 8.36 K/mm3 (1.3-6.7); Neutrophils Percent Manual 73 % (46-73); Total Cells Counted 100
[2025-04-01 06:25] LABS: Anisocytosis 1+; Schistocytes None Seen; Tear Drop Cells Occasional
[2025-04-01] MEDS: FLUTICASONE/SALMETEROL 45-21 MCG INHALER 1 PUFF 2 PUFF INHALATION ×2 (08:18→20:53)
[2025-04-01] MEDS: SENNA/DOCUSATE SODIUM TABLET 2 TAB PO ×2 (10:01→17:54)
[2025-04-01] MEDS: TRIAMTERENE 37.5 MG/HCTZ 25 MG (MAXZIDE) TABLET 1 TAB PO (10:01)
[2025-04-01] MEDS: clonazePAM (*CRX) 0.5 MG TABLET 1 MG PO ×2 (10:02→21:48)
[2025-04-01] MEDS: METOPROLOL TARTRATE 12.5 MG TABLET PO ×2 (10:02→21:47)
[2025-04-01] MEDS: LORATADINE 10 MG TABLET PO (10:02)
[2025-04-01] MEDS: SENNOSIDES 8.6 MG TABLET 17.2 MG PO ×2 (10:02→17:54)
[2025-04-01] MEDS: ATORVASTATIN 40 MG TABLET PO (10:02)
[2025-04-01] MEDS: VERAPAMIL HCL 180 MG TABLET ER PO (10:02)
[2025-04-01] MEDS: CLOPIDOGREL BISULFATE 75 MG TABLET PO (10:02)
[2025-04-01] MEDS: FOLIC ACID 1 MG TABLET PO (10:03)
--- NOTE | 2025-04-01 10:05 | P.PNIM_ITS ---
Progress Note: A&P Assessment and Plan (1) Altered mental status: Code(s): R41.82 - Altered mental status, unspecified Status: Acute (2) Cardiomyopathy: Code(s): I42.9 - Cardiomyopathy, unspecified Status: Acute (3) Patent foramen ovale with right to left shunt: Code(s): Q21.12 - Patent foramen ovale Status: Acute (4) Urinary tract infection: Code(s): N39.0 - Urinary tract infection, site not specified Status: Acute (5) Hypercalcemia of malignancy: Code(s): E83.52 - Hypercalcemia Status: Acute (6) Hypokalemia: Code(s): E87.6 - Hypokalemia Status: Acute (7) Ovarian cancer: Code(s): C56.9 - Malignant neoplasm of unspecified ovary Status: Acute (8) COPD (chronic obstructive pulmonary disease): Qualifiers: COPD type: unspecified COPD Qualified Code(s): J44.9 - Chronic obstructive pulmonary disease, unspecified Code(s): J44.9 - Chronic obstructive pulmonary disease, unspecified Status: Acute (9) Hypertension: Code(s): I10 - Essential (primary) hypertension Status: Acute Plan 1. Altered mental status/acute encephalopathy: CT head without contrast showed age indeterminate focus of left frontal subcortical ischemia, no hemorrhage CTA head and neck showed no ICA stenosis or other acute arterial abnormality, lytic bony metastatic disease C2, C5, lytic bony metastatic disease right scapula with large associated soft tissue component, no large vessel arterial occlusion disease or other acute arterial abnormality. MRI brain unremarkable; no evidence of CVA B12, folate normal Echocardiogram with EF of 40-45% with regional wall motion abnormality, PFO Neurology consulted Patient is awake but remains confused. related to hypercalcemia? Clonazepam resumed as needed but may take this regularly Continue with Plavix, statin. Check ammonia level PT/OT/ST ordered 2. CMP; Patent foramen ovale Echo showing EF 40-45% with regional wall motion abnormality and PFO with R-->L shunt Cardiology consulted. LE venous doppler negative for DVT so unlikely paradoxical CVA. Metoprolol tartrate started. Will stop Maxide and add losartan Continue tele monitoring Continue Plavix, statin Will need home O2 evaluation before discharge 3. UTI: UA noted. Bandemia noted today. No BCx collected. Urine culture growing g negatives, follow further Continue with ceftriaxone 4. Hypercalcemia: Calcium level of 14.4 . Likely secondary to malignancy Received zoledronic acid, calcitonin, IV fluids in the ER Calcium levels have improved Follow 5. Electrolyte abnormalities: HypoK+/HypoMag/HypoNa Magnesium and potassium levels have improved Sodium 127 again today - related to Maxide? Check cortiol and TSH 5. Ovarian CA with hx of metastatic cancer: Patient with stage IV ovarian cancer with metastasis Patient has been treated with chemo, radiation in the past, currently on maintenance therapy with Keytruda. MRI brain unremarkable Patient follows up with Oncology at [facility] bed at [facility] 6. COPD: Stable. No wheezing. Currently on room air 7. HTN: Patient's blood pressure was reviewed and remains well controlled. Will continue to monitor. Will stop Maxide and add losartan Code status: Full DVT prophylaxis: Heparin subQ Disposition: Pending improvement Subjective Date/time seen: 04/01/25 10:05 Interval history: 59yo female with HTN here for AMS. Assuming care. Chart reviewed. Patient slept well. Eating okay. She is walking to the bathroom. Has dyspnea on exertion but denies shortness of breath, chest pain or abdominal pain. She still confused so history is suspect. RN states patient noted to have lice treated yesterday with Nix. Review of Systems Review of Systems: ROS unobtainable: Yes unobtainable due to mental status Exam Narrative: AF 98 105/56 97 20 97% ra General: NARD Chest: distant BS and decreased BS in the bases. Right upper chest port accessed CV: Regular rate and rhythm with S1-S2. Tele showing NSR, wide QRS Gastrointestinal: Abdomen is soft, non-tender, and non-distended with positive bowel sounds. Skin: Warm and dry. No rash or lesions on limited exam. Extremities: No edema. Neurological: Awake but dulled affect. Confused, oriented to location and month only. No focal weakness. Delayed responses to questions. Psych- emotional lability Objective Data Vital Signs Vital Signs: Vital Signs - 24 hr 03/31/25 10:59 03/31/25 11:27 03/31/25 11:59 Temperature 97.7 F Pulse Rate 103 H Respiratory Rate 22 H Blood Pressure 139/102 H Pulse Oximetry 93 95 98 Oxygen Delivery Nasal Cannula Nasal Cannula Oxygen Flow Rate 2 2 Fraction of Inspired Oxygen 03/31/25 11:59 03/31/25 12:00 03/31/25 12:00 Temperature 97.7 F Pulse Rate 104 H 103 H 105 H Respiratory Rate 22 H Blood Pressure 110/60 139/102 H Pulse Oximetry 98 Oxygen Delivery Oxygen Flow Rate Fraction of Inspired Oxygen 03/31/25 14:00 03/31/25 16:00 03/31/25 16:13 Temperature 98.7 F Pulse Rate 93 97 93 Respiratory Rate 18 Blood Pressure 93/58 L Pulse Oximetry 93 Oxygen Delivery Oxygen Flow Rate Fraction of Inspired Oxygen 03/31/25 18:00 03/31/25 20:00 03/31/25 20:00 Temperature 98.6 F Pulse Rate 87 88 Respiratory Rate 18 Blood Pressure 111/53 L Pulse Oximetry 94 93 Oxygen Delivery Room Air Oxygen Flow Rate Fraction of Inspired Oxygen 03/31/25 20:00 03/31/25 20:52 03/31/25 20:55 Temperature Pulse Rate 90 94 93 Respiratory Rate 20 20 Blood Pressure Pulse Oximetry 94 Oxygen Delivery Room Air Oxygen Flow Rate Fraction of Inspired Oxygen 21 03/31/25 21:27 03/31/25 22:00 04/01/25 00:00 Temperature Pulse Rate 99 87 72 Respiratory Rate Blood Pressure Pulse Oximetry Oxygen Delivery Oxygen Flow Rate Fraction of Inspired Oxygen 04/01/25 01:02 04/01/25 02:00 04/01/25 04:00 Temperature Pulse Rate 76 71 77 Respiratory Rate 20 Blood Pressure Pulse Oximetry Oxygen Delivery Oxygen Flow Rate Fraction of Inspired Oxygen 04/01/25 06:00 04/01/25 08:00 04/01/25 08:00 Temperature 98 F Pulse Rate 82 89 Respiratory Rate 24 H Blood Pressure 105/56 L Pulse Oximetry 96 97 Oxygen Delivery Room Air Oxygen Flow Rate Fraction of Inspired Oxygen 04/01/25 08:21 04/01/25 10:02 Temperature Pulse Rate 80 97 Respiratory Rate 20 Blood Pressure Pulse Oximetry Oxygen Delivery Oxygen Flow Rate Fraction of Inspired Oxygen Intake/Output Intake/Output: Intake & Output 03/29/25 03/30/25 03/31/25 04/01/25 23:59 23:59 23:59 23:59 Intake Total 4150 390 660 50 Output Total 800 1355 800 Balance 4950 -698 -140 50 Meds/Results Medications: Active Medications Generic Name Dose Route Start Last Admin Trade Name Freq PRN Reason Stop Dose Admin Acetaminophen 650 mg 03/29/25 19:45 03/31/25 21:28 Acetaminophen 325 Mg Tablet PO 650 mg Q4H PRN Administration Mild Pain (1-3) or Fever Albuterol 2 puff 03/30/25 02:00 04/01/25 08:18 Albuterol Sulfate (*Sp) Aerosol 1 Puff INHALATION 2 puff Q6HRT DANIELE Administration Albuterol 2.5 mg 03/29/25 21:50 Albuterol Sulfate Neb 2.5 Mg/3 Ml Inh INHALATION Q4-6H PRN Shortness Of Breath Atorvastatin Calcium 40 mg 03/30/25 09:00 04/01/25 10:02 Atorvastatin 40 Mg Tablet PO 40 mg DAILY DANIELE Administration Clonazepam 1 mg 03/30/25 12:21 04/01/25 10:02 Clonazepam (*Crx) 0.5 Mg Tablet PO 1 mg TID PRN Administration anxiety Clopidogrel Bisulfate 75 mg 03/30/25 09:00 04/01/25 10:02 Clopidogrel Bisulfate 75 Mg Tablet PO 75 mg QAM DANIELE Administration Duloxetine HCl 30 mg 03/30/25 09:00 04/01/25 10:01 Duloxetine Hcl 30 Mg Capsule.Dr PO 30 mg DAILY DANIELE Administration Folic Acid 1 mg 03/30/25 09:00 04/01/25 10:03 Folic Acid 1 Mg Tablet PO 1 mg DAILY DANIELE Administration Heparin Sodium (Beef Lung) 50 units 03/30/25 09:00 04/01/25 10:03 Heparin Flush 50 Units/5 Ml Syringe IV PUSH 50 units QAM DANIELE Administration Heparin Sodium (Beef Lung) 50 units 03/29/25 23:50 Heparin Flush 50 Units/5 Ml Syringe IV PUSH PRN PRN after intermittent infusion Heparin Sodium (Beef Lung) 50 units 03/29/25 23:50 Heparin Flush 50 Units/5 Ml Syringe IV PUSH PRN PRN after blood draws Heparin Sodium (Porcine) 500 units 03/29/25 23:50 Heparin Sodium Lock Flush 500 Units/5 Ml Syringe IV PUSH PRN PRN see comments below Heparin Sodium (Porcine) 5,000 units 03/30/25 14:00 04/01/25 05:28 Heparin Sodium 5,000 Units/Ml Vial SUB-Q 5,000 units Q8HR DANIELE Administration Ceftriaxone Sodium 1 gm/ 50 mls @ 100 mls/hr 03/29/25 18:00 04/01/25 07:44 Sodium Chloride IVPB Infused Q24H DANIELE Infusion Loratadine 10 mg 03/30/25 09:00 04/01/25 10:02 Loratadine 10 Mg Tablet PO 10 mg QAM DANIELE Administration Metoprolol Tartrate 12.5 mg 03/31/25 21:00 04/01/25 10:02 Metoprolol Tartrate 12.5 Mg Tablet PO 12.5 mg Q12HR DANIELE Administration Montelukast Sodium 10 mg 03/29/25 21:00 03/31/25 21:27 Montelukast Sodium 10 Mg Tablet PO 10 mg HS DANIELE Administration Fluticasone/Salmeterol 2 puff 03/29/25 20:00 04/01/25 08:18 Fluticasone/Salmeterol 45-21 Mcg Inhaler 1 Puff INHALATION 2 puff Q12HRT DANIELE Administration Senna 17.2 mg 03/30/25 09:00 04/01/25 10:02 Sennosides 8.6 Mg Tablet PO 17.2 mg BID DANIELE Administration Senna/Docusate Sodium 2 tab 03/29/25 17:00 04/01/25 10:01 Senna/Docusate Sodium Tablet PO 2 tab BID DANIELE Administration Sodium Chloride 10 ml 03/30/25 06:00 04/01/25 05:29 Central Line Flush IV PUSH 10 ml Q8HR DANIELE Administration Triamterene/Hydrochlorothiazide 1 tab 03/30/25 09:00 04/01/25 10:01 Triamterene 37.5 Mg/Hctz 25 Mg (Maxzide) Tablet PO 1 tab QAM DANIELE Administration Verapamil HCl 180 mg 03/30/25 08:00 04/01/25 10:02 Verapamil Hcl 180 Mg Tablet Er PO 180 mg DAILY@0800 DANIELE Administration Radiology Results: ITS Impressions Chest X-Ray 03/28/25 17:17 Impression: No acute cardiopulmonary abnormality. Head CT 03/28/25 17:39 Impression: Age-indeterminate focus of left frontal subcortical ischemia. No hemorrhage. MRI recommended Head/Neck CTA 03/29/25 08:51 IMPRESSION: CTA NECK: 1. No ICA stenosis or other acute arterial abnormality. 2. Lytic bony metastatic disease C2, C5. 3. Lytic bony metastatic disease right scapula with large associated soft tissue component. CTA HEAD: 1. No large vessel arterial occlusive disease or other acute arterial abnormality. Brain MRI 03/30/25 15:18 IMPRESSION: 1. Scattered ossific white matter T2 hyperintensity consistent with chronic small vessel ischemic disease. No acute intracranial process. Venous Doppler Study 03/31/25 17:18 IMPRESSION: 1: No lower extremity deep venous thrombosis. Labs Labs: Laboratory Results - last 24 hr 04/01/25 05:39 WBC 9.5 RBC 2.83 L Hgb 8.4 L Hct 26.7 L MCV 94.3 MCH 29.7 MCHC 31.5 L RDW 17.7 H Plt Count 141 L MPV 9.6 Immature Gran % (Auto) Not Reportable Neut % (Auto) Not Reportable Lymph % (Auto) Not Reportable [place] % (Auto) Not Reportable Eos % (Auto) Not Reportable Baso % (Auto) Not Reportable Lymph # (Auto) Not Reportable [place] # (Auto) Not Reportable Eos # (Auto) Not Reportable Baso # (Auto) Not Reportable Abs Immat Gran (auto) Not Reportable Absolute Neuts (auto) Not Reportable Absolute Nucleated RBC Not Reportable Total Counted 100 Neutrophils % (Manual) 73 Band Neutrophils % 15 H Lymphocytes % (Manual) 9 L Monocytes % (Manual) 2 L Eosinophils % (Manual) 1 Nucleated RBC % Not Reportable Abs Neuts (Manual) 8.36 H Abs Lymphs (Manual) 0.85 L Abs Monocytes (Manual) 0.19 Absolute Eos (Manual) 0.09 Platelet Estimate Slightly decreased Anisocytosis 1+ Tear Drop Cells Occasional Schistocytes None seen Sodium 127 L Potassium 3.7 Chloride 98 Carbon Dioxide 25 Anion Gap 4 BUN 11 Creatinine 0.72 Estim Creat Clear Calc 61 Estimated GFR > 60 Glucose 80 Calcium 10.0 Magnesium 1.8
[2025-04-01] MEDS: ACETAMINOPHEN 325 MG TABLET 650 MG PO ×2 (11:22→21:47)
[2025-04-01] MEDS: cefTRIAXone 1 GM in SODIUM CHLORIDE 0.9% IV 50 ML 100 ML IVPB (17:54)
[2025-04-01] MEDS: MONTELUKAST SODIUM 10 MG TABLET PO (21:47)
[2025-04-02] VITALS (20 sets, daily range): BP systolic 104–122; BP diastolic 63–73; PULSE 71–126; RESP 18–20; TEMP 36.3–36.7; O2SAT 94–100
[2025-04-02] MEDS: ALBUTEROL SULFATE (*SP) AEROSOL 1 PUFF 2 PUFF INHALATION ×3 (01:13→20:39)
[2025-04-02] MEDS: CENTRAL LINE FLUSH 10 ML IV PUSH ×3 (06:09→21:01)
[2025-04-02 06:18] LABS: Hematocrit 27.5 % (37.0-47.0); Hemoglobin 8.8 g/dL (12.0-15.0); Mean Corpuscular HGB Conc 32.0 g/dl (32-36); Mean Corpuscular Hemoglobin 29.7 pg (26-34); Mean Corpuscular Volume 92.9 fl (80-100); Platelet Count Result 153 k/mm3 (150-375); Red Blood Count 2.96 M/mm3 (4.2-5.4); White Blood Count 11.8 K/mm3 (4.5-10.0)
[2025-04-02 06:29] LABS: Ammonia < 9 umol/L (9-30)
[2025-04-02 06:41] LABS: Iron 60 ug/dL (37-170)
[2025-04-02 06:45] LABS: Albumin Level 3.2 g/dL (3.5-5.1); Anion Gap 8 mmol/L (4-12); Blood Urea Nitrogen 17 mg/dL (7-17); Calcium 10.2 mg/dL (8.4-10.2); Carbon Dioxide 24 mmol/L (22-30); Chloride 97 mmol/L (98-107); Estimated CRCL calculation 48 ml/min; Estimated Glomerular Filt Rate > 60; Glucose 91 mg/dL (65-110); Magnesium 1.8 mg/dL (1.6-2.3); Potassium 3.4 mmol/L (3.4-5.0); Sodium 129 mmol/L (137-145)
[2025-04-02 06:51] LABS: Percent Iron Saturation 34 % (20-50)
[2025-04-02 06:56] LABS: Band Neutrophils Percent 17 % (0-6); Lymphocytes Absolute Manual 1.18 K/mm3 (1.1-4.5); Lymphocytes Percent Manual 10 % (18-44); Metamyelocytes Percent 2 %; Monocytes Absolute Manual 0.59 K/mm3 (0.1-0.90); Monocytes Percent Manual 5 % (3-9); Neutrophils Absolute Manual 9.79 K/mm3 (1.3-6.7); Neutrophils Percent Manual 66 % (46-73); Total Cells Counted 100
[2025-04-02 06:57] LABS: Anisocytosis 1+; Polychromasia Occasional; Schistocytes None Seen
[2025-04-02 08:18] LABS: Ferritin 1640.00 ng/mL (11.1-264)
[2025-04-02] MEDS: SENNOSIDES 8.6 MG TABLET 17.2 MG PO (08:36)
[2025-04-02] MEDS: clonazePAM (*CRX) 0.5 MG TABLET 1 MG PO (08:36)
[2025-04-02] MEDS: CLOPIDOGREL BISULFATE 75 MG TABLET PO (08:37)
[2025-04-02] MEDS: ACETAMINOPHEN 325 MG TABLET 650 MG PO (08:37)
[2025-04-02] MEDS: FOLIC ACID 1 MG TABLET PO (08:37)
[2025-04-02] MEDS: SENNA/DOCUSATE SODIUM TABLET 2 TAB PO (08:37)
[2025-04-02] MEDS: ATORVASTATIN 40 MG TABLET PO (08:37)
[2025-04-02] MEDS: METOPROLOL TARTRATE 12.5 MG TABLET PO ×2 (08:37→21:00)
[2025-04-02] MEDS: LOSARTAN POTASSIUM 25 MG TABLET PO (08:38)
[2025-04-02] MEDS: VERAPAMIL HCL 180 MG TABLET ER PO (08:38)
[2025-04-02] MEDS: LORATADINE 10 MG TABLET PO (08:38)
[2025-04-02] MEDS: POTASSIUM CHLORIDE 20 MEQ ER TABLET 40 MEQ PO (09:07)
--- NOTE | 2025-04-02 10:45 | PCNFU ---
Nutrition Follow-Up Complete: Inadequate oral intake related to altered mental status as evidenced by report of poor intake 2 weeks PO intake >50- Slow progress with goal. Continue with same goal Goal: Pt current nutrition is Regular diet, Ensure + HP BID (350 kcal, 20 g protein). Nutrition recommendation: No new recommendations. Continue to encourage PO intake/offer feeding assistance. Agree with nutrition orders Last recorded weight is 63.9 kg. Bowel Motility: +1 BM 03/30. Bowel regimen in place Labs Reviewed: Hgb 8.8, Hct 27.5, Alb 3.2, Na 129 Meds Noted: Folic acid, senna, miralax Skin: No skin issues Additional Notes: Intakes remain poor. Drinking some Ensure. Continue with current nutrition care plan and orders. Agree with orders Monitoring intakes, weights, labs, supplement tolerance, feeding ability, plan of care Follow up in 3 days
--- NOTE | 2025-04-02 16:35 | P.PNIM_ITS ---
Progress Note: A&P Assessment and Plan (1) Altered mental status: Code(s): R41.82 - Altered mental status, unspecified Status: Acute (2) Cardiomyopathy: Code(s): I42.9 - Cardiomyopathy, unspecified Status: Acute (3) Patent foramen ovale with right to left shunt: Code(s): Q21.12 - Patent foramen ovale Status: Acute (4) Urinary tract infection: Code(s): N39.0 - Urinary tract infection, site not specified Status: Acute (5) Hypercalcemia of malignancy: Code(s): E83.52 - Hypercalcemia Status: Acute (6) Hypokalemia: Code(s): E87.6 - Hypokalemia Status: Acute (7) Ovarian cancer: Code(s): C56.9 - Malignant neoplasm of unspecified ovary Status: Acute (8) COPD (chronic obstructive pulmonary disease): Qualifiers: COPD type: unspecified COPD Qualified Code(s): J44.9 - Chronic obstructive pulmonary disease, unspecified Code(s): J44.9 - Chronic obstructive pulmonary disease, unspecified Status: Acute (9) Hypertension: Code(s): I10 - Essential (primary) hypertension Status: Acute Plan 1. Altered mental status/acute encephalopathy: CT head without contrast showed age indeterminate focus of left frontal subcortical ischemia, no hemorrhage CTA head and neck showed no ICA stenosis or other acute arterial abnormality, lytic bony metastatic disease C2, C5, lytic bony metastatic disease right scapula with large associated soft tissue component, no large vessel arterial occlusion disease or other acute arterial abnormality. MRI brain unremarkable; no evidence of CVA or masses B12, folate normal. Ammonia level <9. VitD 52. Cortisol 17. Echocardiogram with EF of 40-45% with regional wall motion abnormality, PFO Neurology consulted Patient is awake but remains confused. Related to UTI? Related to hypercalcemia but calcium better past few days. Clonazepam resumed as needed and taking this at least twice daily. Continue with Plavix, statin. PT/OT/ST. Decrease Clonazepam dose. 2. CMP; Patent foramen ovale Echo showing EF 40-45% with regional wall motion abnormality and PFO with R-->L shunt Cardiology consulted. LE venous doppler negative for DVT so unlikely paradoxical CVA. Metoprolol tartrate started. Maxide stopped and losartan added Continue tele monitoring Continue Plavix, statin Will need home O2 evaluation before discharge 3. UTI: UA noted. Bandemia noted again today (15-17%). No BCx collected. Urine culture growing EColi sensitive to Rocephin Continue with ceftriaxone. WBC going up - continue to monitor for now 4. Hypercalcemia: Calcium level of 14.4 . Likely secondary to malignancy Received zoledronic acid, calcitonin, IV fluids in the ER Calcium levels have improved Follow 5. Electrolyte abnormalities: HypoK+/HypoMag/HypoNa Magnesium and potassium levels have improved Sodium 129 probably related to stopping Maxide Cortisol okay. TSH pending 5. Ovarian CA with hx of metastatic cancer: Patient with stage IV ovarian cancer with metastasis Patient has been treated with chemo, radiation in the past, currently on maintenance therapy with Keytruda. MRI brain unremarkable [facility] 6. COPD: Stable. No wheezing. Currently on room air 7. HTN: Patient's blood pressure was reviewed and remains well controlled. Will continue to monitor. Code status: Full DVT prophylaxis: Heparin subQ Disposition: Pending improvement Subjective Date/time seen: 04/02/25 16:35 Interval history: 59yo female with HTN and metastatic ovarian CA here for AMS. Alert but remains confused so hx unreliable Review of Systems Review of Systems: ROS unobtainable: Yes unobtainable due to mental status Exam Narrative: AF 97.4 111/63 72 18 96% ra Gen - NARD Chest - clear anteriorly and in flanks to quiet respirations. Right upper chest port accessed CV - RRR with S1-S2. Tele showing NSR, wide QRS Abd - soft, non-tender, and non-distended with positive bowel sounds. Ext - no pedal edema. Neuro - Awake but dulled affect and confused. slow to respond Psych- flat affect Skin - Warm and dry. Objective Data Vital Signs Vital Signs: Vital Signs - 24 hr 04/01/25 17:00 04/01/25 18:00 04/01/25 20:00 Temperature 97.4 F L 98.4 F Pulse Rate 76 75 84 Respiratory Rate 22 H 17 Blood Pressure 97/53 L 111/55 L Pulse Oximetry 96 93 Oxygen Delivery 04/01/25 20:00 04/01/25 20:00 04/01/25 20:51 Temperature Pulse Rate 81 Respiratory Rate Blood Pressure Pulse Oximetry 93 95 Oxygen Delivery Room Air Room Air 04/01/25 21:47 04/01/25 22:00 04/02/25 00:00 Temperature Pulse Rate 94 90 80 Respiratory Rate Blood Pressure Pulse Oximetry Oxygen Delivery 04/02/25 02:00 04/02/25 04:00 04/02/25 06:00 Temperature Pulse Rate 84 93 88 Respiratory Rate Blood Pressure Pulse Oximetry Oxygen Delivery 04/02/25 08:00 04/02/25 08:00 04/02/25 08:11 Temperature 98.1 F Pulse Rate 94 96 Respiratory Rate 20 Blood Pressure 104/65 Pulse Oximetry 94 97 Oxygen Delivery Room Air 04/02/25 08:37 04/02/25 09:20 04/02/25 09:21 Temperature 98.1 F Pulse Rate 98 96 107 H Respiratory Rate 20 Blood Pressure 104/65 111/68 Pulse Oximetry 97 96 Oxygen Delivery 04/02/25 09:21 04/02/25 10:00 04/02/25 12:00 Temperature Pulse Rate 126 H 91 78 Respiratory Rate Blood Pressure 122/73 Pulse Oximetry 100 Oxygen Delivery 04/02/25 14:00 04/02/25 14:29 04/02/25 14:29 Temperature Pulse Rate 71 71 71 Respiratory Rate 20 20 Blood Pressure Pulse Oximetry 95 Oxygen Delivery Room Air 04/02/25 16:00 04/02/25 16:22 Temperature 97.4 F L Pulse Rate 71 72 Respiratory Rate 18 Blood Pressure 111/63 Pulse Oximetry 96 Oxygen Delivery Intake/Output Intake/Output: Intake & Output 03/30/25 03/31/25 04/01/25 04/02/25 23:59 23:59 23:59 23:59 Intake Total 390 660 325 320 Output Total 1355 800 400 [facility] -965 -140 325 -80 Meds/Results Medications: Active Medications Generic Name Dose Route Start Last Admin Trade Name Freq PRN Reason Stop Dose Admin Acetaminophen 650 mg 03/29/25 19:45 04/02/25 08:37 Acetaminophen 325 Mg Tablet PO 650 mg Q4H PRN Administration Mild Pain (1-3) or Fever Albuterol 2 puff 03/30/25 02:00 04/02/25 14:27 Albuterol Sulfate (*Sp) Aerosol 1 Puff INHALATION 2 puff Q6HRT DANIELE Administration Albuterol 2.5 mg 03/29/25 21:50 Albuterol Sulfate Neb 2.5 Mg/3 Ml Inh INHALATION Q4-6H PRN Shortness Of Breath Atorvastatin Calcium 40 mg 03/30/25 09:00 04/02/25 08:37 Atorvastatin 40 Mg Tablet PO 40 mg DAILY DANIELE Administration Clonazepam 1 mg 03/30/25 12:21 04/02/25 08:36 Clonazepam (*Crx) 0.5 Mg Tablet PO 1 mg TID PRN Administration anxiety Clopidogrel Bisulfate 75 mg 03/30/25 09:00 04/02/25 08:37 Clopidogrel Bisulfate 75 Mg Tablet PO 75 mg QAM DANIELE Administration Duloxetine HCl 30 mg 03/30/25 09:00 04/02/25 08:37 Duloxetine Hcl 30 Mg Capsule.Dr PO 30 mg DAILY DANIELE Administration Folic Acid 1 mg 03/30/25 09:00 04/02/25 08:37 Folic Acid 1 Mg Tablet PO 1 mg DAILY DANIELE Administration Heparin Sodium (Beef Lung) 50 units 03/30/25 09:00 04/02/25 09:07 Heparin Flush 50 Units/5 Ml Syringe IV PUSH 50 units QAM DANIELE Administration Heparin Sodium (Beef Lung) 50 units 03/29/25 23:50 Heparin Flush 50 Units/5 Ml Syringe IV PUSH PRN PRN after intermittent infusion Heparin Sodium (Beef Lung) 50 units 03/29/25 23:50 Heparin Flush 50 Units/5 Ml Syringe IV PUSH PRN PRN after blood draws Heparin Sodium (Porcine) 500 units 03/29/25 23:50 Heparin Sodium Lock Flush 500 Units/5 Ml Syringe IV PUSH PRN PRN see comments below Heparin Sodium (Porcine) 5,000 units 03/30/25 14:00 04/02/25 14:08 Heparin Sodium 5,000 Units/Ml Vial SUB-Q 5,000 units Q8HR DANIELE Administration Ceftriaxone Sodium 1 gm/ 50 mls @ 100 mls/hr 03/29/25 18:00 04/02/25 09:08 Sodium Chloride IVPB 04/03/25 18:29 Infused Q24H DANIELE Infusion Loratadine 10 mg 03/30/25 09:00 04/02/25 08:38 Loratadine 10 Mg Tablet PO 10 mg QAM DANIELE Administration Losartan Potassium 25 mg 04/02/25 09:00 04/02/25 08:38 Losartan Potassium 25 Mg Tablet PO 25 mg DAILY DANIELE Administration Metoprolol Tartrate 12.5 mg 03/31/25 21:00 04/02/25 08:37 Metoprolol Tartrate 12.5 Mg Tablet PO 12.5 mg Q12HR DANIELE Administration Montelukast Sodium 10 mg 03/29/25 21:00 04/01/25 21:47 Montelukast Sodium 10 Mg Tablet PO 10 mg HS DANIELE Administration Polyethylene Glycol 17 gm 04/02/25 09:00 04/02/25 09:08 Polyethylene Glycol 3350 17 Gm Powd.Pack PO 17 gm QAM DANIELE Administration Fluticasone/Salmeterol 2 puff 03/29/25 20:00 04/02/25 08:50 Fluticasone/Salmeterol 45-21 Mcg Inhaler 1 Puff INHALATION Not Given Q12HRT DANIELE Senna 17.2 mg 03/30/25 09:00 04/02/25 08:36 Sennosides 8.6 Mg Tablet PO 17.2 mg On Hold: 04/02/25 08:45 BID DANIELE Administration Sodium Chloride 10 ml 03/30/25 06:00 04/02/25 14:08 Central Line Flush IV PUSH 10 ml Q8HR DANIELE Administration Verapamil HCl 180 mg 03/30/25 08:00 04/02/25 08:38 Verapamil Hcl 180 Mg Tablet Er PO 180 mg DAILY@0800 DANIELE Administration Radiology Results: ITS Impressions Chest X-Ray 03/28/25 17:17 Impression: No acute cardiopulmonary abnormality. Head CT 03/28/25 17:39 Impression: Age-indeterminate focus of left frontal subcortical ischemia. No hemorrhage. MRI recommended Head/Neck CTA 03/29/25 08:51 IMPRESSION: CTA NECK: 1. No ICA stenosis or other acute arterial abnormality. 2. Lytic bony metastatic disease C2, C5. 3. Lytic bony metastatic disease right scapula with large associated soft tissue component. CTA HEAD: 1. No large vessel arterial occlusive disease or other acute arterial abnormality. Brain MRI 03/30/25 15:18 IMPRESSION: 1. Scattered ossific white matter T2 hyperintensity consistent with chronic small vessel ischemic disease. No acute intracranial process. Venous Doppler Study 03/31/25 17:18 IMPRESSION: 1: No lower extremity deep venous thrombosis. Labs Labs: Laboratory Results - last 24 hr 04/02/25 05:59 WBC 11.8 H RBC 2.96 L Hgb 8.8 L Hct 27.5 L MCV 92.9 MCH 29.7 MCHC 32.0 RDW 18.0 H Plt Count 153 MPV 9.7 Immature Gran % (Auto) Not Reportable Neut % (Auto) Not Reportable Lymph % (Auto) Not Reportable [place] % (Auto) Not Reportable Eos % (Auto) Not Reportable Baso % (Auto) Not Reportable Lymph # (Auto) Not Reportable [place] # (Auto) Not Reportable Eos # (Auto) Not Reportable Baso # (Auto) Not Reportable Abs Immat Gran (auto) Not Reportable Absolute Neuts (auto) Not Reportable Absolute Nucleated RBC Not Reportable Total Counted 100 Neutrophils % (Manual) 66 Band Neutrophils % 17 H Lymphocytes % (Manual) 10 L Monocytes % (Manual) 5 Metamyelocytes % 2 Nucleated RBC % Not Reportable Abs Neuts (Manual) 9.79 H Abs Lymphs (Manual) 1.18 Abs Monocytes (Manual) 0.59 Platelet Estimate Adequate Polychromasia Occasional Anisocytosis 1+ Schistocytes None seen Sodium 129 L Potassium 3.4 Chloride 97 L Carbon Dioxide 24 Anion Gap 8 BUN 17 Creatinine 0.93 Estim Creat Clear Calc 48 Estimated GFR > 60 Glucose 91 Calcium 10.2 Phosphorus 2.7 Magnesium 1.8 Iron 60 TIBC 174 L % Saturation 34 Ferritin 1640.00 H Ammonia < 9 L Albumin 3.2 L Vitamin D 25-Hydroxy 51.8 Random Cortisol 17.20
--- NOTE | 2025-04-02 16:52 | WPDREHABCON ---
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 Pete Murray machine assembler for puller over Neuro Rajani Edmond. Cardiology Zuleyka Nolan. PMR Mariel Flores. Consult date: 04/02/25 I saw this patient [id number] on 04/02/25 REASON FOR CONSULT: WEAKNESS WITH WORSENED FUNCTION Prior to this admission, Iliana had been deconditioning over a few weeks, going from mostly independent using a cane to needing maxA from family to get to the bathroom. Left knee neto, and she is slowed and confused and drowsy.. Poor oral intake noted Patients current decrease in function is multifactorial given ovarian vulvar cancer and treatment as well as secondary effects of treatment. RESPONSE notably cancer/critical illness myopathy presents with weakness proximally LLE weakness likely due to plexopathy neuropathy also affecting DISTAL proprioception--possibly B12 related as well and chemo IMMOBILITY likely causing worsened fatigue and weakness slowed responses with decreased activity possible meds possible sleep wake impairment and hypercalcemia cachexia poor appetite due to med effects will review further PLAN monitor labs sleep wake up daily with energy conservation I will follow on sunday thank your for this consult HPI: Iliana Montero is a 59 year old female with history of carcinoma of the ovary/vulvular cancer diagnosed in March 2024 according to her daughter. She is considered to be in stage IV. 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 ca125 was 21.6 treatment taxol carboplatin abastin keytruda SQUAMOUS CELL CARCINOMA OF THE VULVA STATUS POST neoadjuvant systemic therapy with a mixed response PET SCAN DECEMBER 2024 with PARTIAL RESPONSE mets adrenal right node hilar labs TSH 2.1971 Hg 8.6 no calcium noted noted neuropathy fatigue sp pelvic radiation with 5000 cGY in 25 fractions and boost to groin and vulvar with 6200 6400 in 32 fractions ending 11/27/2024 AT [facility] Cardiology-New cardiomyopathy with LVEF of 40% and regional wall motion abnormalities with hypokinesis of inferior, inferoseptal and anteroseptal lopez; no chest pain or shortness of breath -PFO with [id number] shunt; on room air at rest -Electrolyte abnormalities: Hyponatremia, hypercalcemia, hypokalemia -Stage IV ovarian cancer with bony mets -Hypertension Neurology-no new stroke Encephalopathy UTI Hypercalcemia electrolyte abnormalities PATIENT SUMMARY Precautions Diet, Safety/fall precautions, Weight-bearing status Diet type General/Regular Safety/fall precautions details High fall risk, Decreased balance Weight-bearing status details full Special Rehabilitation Needs Requires O2, Skin/wound care, Visually impaired Requires O2 details 1L PRN, new Skin/wound care details redness on coccyx from moisture Visually impaired details wears readers PERTINENT PMHx PSHx PMH: ovarian cancer HTN, benign breast lump. PSH: hysterectomy PRIOR LEVEL OF FUNCTION: Home/personal responsibilities Prior to this admission, Iliana had been deconditioning over a few weeks, going from mostly independent using a cane to needing maxA from family to get to the bathroom. Prior living situation comments She lives with 3 of her adult children, with alternating work schedules so someone is always available to help. There ar 2 steps to enter. CURRENT LEVEL OF FUNCTION: She lives with 3 of her adult children, with alternating work schedules so someone is always available to help. There are 2 steps to enter. GOALS: Our therapists will evaluate the patient and establish the goals. However, upon pre-admission screening, the expected goals were to be optimize independence with self-care, optimize independence with transfers, and optimize independence with functional mobility so that the patient can return home with family. Additional goals balanced bowel and bladder adeeuate intake restorative sleep no wounds mood stable patient and family aware of medical conditions neuromuscular conditions impairments rehab plan of care DME recommendations and followup ESTIMATED LENGTH OF STAY: 10-14 days POTENTIAL BARRIERS TO DISCHARGE: Family needs training. Severity of condition. Architectural barriers. ACTIVE CO-MORBIDITIES PRESENT ON ADMISSION: Active co-morbidities include weakness fatigue encephalopathy poor appetite deconditioning. The above co-morbidities impact the patient's function and/or functional outcome by limiting safe functional mobility and MRADLs Covid n/a Review of Systems Review of Systems fatigued slowed cognitive processing and executive function weakness with knee buckling decreased appetite All systems reviewed & are unremarkable except as noted in HPI and below PMFSH Past Medical History Medical History (Updated 04/03/25 @ 16:39 by Mariel Flores MD) Hypertension Benign breast lumps Surgical History Surgical History H/O: hysterectomy Family History Family History Sibling Diabetes mellitus Mother Breast cancer in female Daughter Hypertension Other Unknown family medical history Social History Social History Smoking packs per day: 1 Smoking cigarettes per day: 20.0 Years smoked: 30 Smoking pack-years: 30.00 Smoking status: Former smoker Tobacco type: cigarettes Smokeless tobacco user: other Second hand tobacco smoke exposure: No Smoking end date: 07/09/15 Additional smoking assessment comments: Smokes marijuana and chews nicotine gum Alcohol intake: former Drinks per week: 0 Substance use: current Substance use type: marijuana Last use: a week ago Lack of Transportation: YES Lack of Food: Never True Current Housing: I Have Housing Concerned About Future Housing: No Difficulty Paying Gas/Electric Bills: No Difficulty Paying for Meds: No Currently Unemployed: No Education: High School Diploma/GED Difficulty w/ Childcare or Family Care: No Living arrangements: with family Occupation/Education: other Gender identity (if verbalized by the patient): Female Spiritual care concerns: No Comments Current Medications Acetaminophen (Acetaminophen 325 Mg Tablet) 650 mg PO Q4H PRN PRN Reason: Mild Pain (1-3) or Fever Last Admin: 04/02/25 08:37 Dose: 650 mg Albuterol (Albuterol Sulfate (*Sp) Aerosol 1 Puff) 2 puff INHALATION Q6HRT DANIELE Albuterol (Albuterol Sulfate Neb 2.5 Mg/3 Ml Inh) 2.5 mg INHALATION Q4-6H PRN PRN Reason: Shortness Of Breath Atorvastatin Calcium (Atorvastatin 40 Mg Tablet) 40 mg PO DAILY DANIELE Clonazepam (Clonazepam (*Crx) 0.5 Mg Tablet) 0.5 mg PO TID PRN PRN Reason: anxiety Clopidogrel Bisulfate (Clopidogrel Bisulfate 75 Mg Tablet) 75 mg PO QAM DANIELE Duloxetine HCl (Duloxetine Hcl 30 Mg Capsule.Dr) 30 mg PO DAILY DANIELE Folic Acid (Folic Acid 1 Mg Tablet) 1 mg PO DAILY DANIELE Heparin Sodium (Beef Lung) (Heparin Flush 50 Units/5 Ml Syringe) 50 units IV PUSH QAM DANIELE Heparin Sodium (Beef Lung) (Heparin Flush 50 Units/5 Ml Syringe) 50 units IV PUSH PRN PRN PRN Reason: after intermittent infusion Heparin Sodium (Beef Lung) (Heparin Flush 50 Units/5 Ml Syringe) 50 units IV PUSH PRN PRN PRN Reason: after blood draws Heparin Sodium (Porcine) (Heparin Sodium Lock Flush 500 Units/5 Ml Syringe) 500 units IV PUSH PRN PRN PRN Reason: see comments below Heparin Sodium (Porcine) (Heparin Sodium 5,000 Units/Ml Vial) 5,000 units SUB-Q Q8HR DANIELE Ceftriaxone Sodium 1 gm/ (Sodium Chloride) 50 mls @ 100 mls/hr IVPB Q24H DANIELE Stop: 04/03/25 18:29 Last Infusion: 04/02/25 18:28 Dose: Infused Loratadine (Loratadine 10 Mg Tablet) 10 mg PO QAM [facility] Losartan Potassium (Losartan Potassium 25 Mg Tablet) 25 mg PO DAILY [facility] Metoprolol Tartrate (Metoprolol Tartrate 12.5 Mg Tablet) 12.5 mg PO Q12HR DANIELE Montelukast Sodium (Montelukast Sodium 10 Mg Tablet) 10 mg PO HS [facility] Last Admin: 04/02/25 21:01 Dose: 10 mg Polyethylene Glycol (Polyethylene Glycol 3350 17 Gm Powd.Pack) 17 gm PO QAM [facility] Fluticasone/Salmeterol (Fluticasone/Salmeterol 45-21 Mcg Inhaler 1 Puff) 2 puff INHALATION Q12HRT [facility] Senna (Sennosides 8.6 Mg Tablet) 17.2 mg PO BID DANIELE On Hold: 04/02/25 08:45 Last Admin: 04/02/25 08:36 Dose: 17.2 mg Sodium Chloride (Central Line Flush) 10 ml IV PUSH Q8HR [facility] Verapamil HCl (Verapamil Hcl 180 Mg Tablet Er) 180 mg PO DAILY@0800 [facility] Meds Home Medications and Allergies Home Medications ?Medication ?Instructions ?Recorded ?Confirmed ?Type inhalational spacing device #1 ea 01/27/20 03/29/25 Rx (Amber [facility] spacer) Symbicort 80 mcg-4.5 mcg/actuation 2 puff inhalation Q12H #10.2 grams 08/04/21 03/29/25 Rx HFA aerosol inhaler (budesonide-formoterol) albuterol sulfate 90 mcg/actuation 2 inh inhalation Q6H PRN shortness 11/08/21 03/29/25 Rx aerosol inhaler of breath or wheezing #1 ea cholecalciferol (vitamin D3) 125 125 mcg PO DAILY 11/08/21 03/29/25 History mcg (5,000 unit) capsule clonazepam 1 mg tablet 1 mg PO TID 11/08/21 03/29/25 History triamterene 37.5 1 cap PO DAILY 11/08/21 03/29/25 History mg-hydrochlorothiazide 25 mg capsule verapamil 180 mg 24 hr 180 mg PO DAILY 11/08/21 03/29/25 History capsule,extended release albuterol sulfate 2.5 mg/3 mL See Rx Instructions .Route 07/31/22 03/29/25 Rx (0.083 %) solution for nebulization .COMPLEX #180 mL atorvastatin 40 mg tablet 40 mg PO DAILY 11/01/22 03/29/25 History duloxetine 30 mg capsule,delayed 30 mg PO DAILY 03/29/25 03/29/25 History release folic acid 1 mg tablet 1 mg PO DAILY 03/29/25 03/29/25 History loratadine 10 mg capsule 10 mg PO Q24H 03/29/25 03/29/25 History montelukast 10 mg tablet 10 mg PO QPM 03/29/25 03/29/25 History ondansetron HCl 8 mg tablet 8 mg PO Q12H PRN nausea and 03/29/25 03/29/25 History vomiting sennosides 8.6 mg capsule (senna) 17.2 mg PO BID 03/29/25 03/29/25 History Allergies Allergy/AdvReac Type Severity Reaction Status Date / Time mushroom Allergy Severe Anaphylaxis Verified 03/29/25 22:16 varenicline (From Chantix) Allergy Severe Depression Verified 03/29/25 22:16 bupropion (From Wellbutrin) AdvReac Severe Depression Verified 03/29/25 22:16 Vital Signs Vital Signs - 24 hr 04/01/25 17:00 04/01/25 18:00 04/01/25 20:00 Temperature 97.4 F L 98.4 F Pulse Rate 76 75 84 Respiratory Rate 22 H 17 Blood Pressure 97/53 L 111/55 L Pulse Oximetry 96 93 Oxygen Delivery 04/01/25 20:00 04/01/25 20:00 04/01/25 20:51 Temperature Pulse Rate 81 Respiratory Rate Blood Pressure Pulse Oximetry 93 95 Oxygen Delivery Room Air Room Air 04/01/25 21:47 04/01/25 22:00 04/02/25 00:00 Temperature Pulse Rate 94 90 80 Respiratory Rate Blood Pressure Pulse Oximetry Oxygen Delivery 04/02/25 02:00 04/02/25 04:00 04/02/25 06:00 Temperature Pulse Rate 84 93 88 Respiratory Rate Blood Pressure Pulse Oximetry Oxygen Delivery 04/02/25 08:00 04/02/25 08:00 04/02/25 08:11 Temperature 98.1 F Pulse Rate 94 96 Respiratory Rate 20 Blood Pressure 104/65 Pulse Oximetry 94 97 Oxygen Delivery Room Air 04/02/25 08:37 04/02/25 09:20 04/02/25 09:21 Temperature 98.1 F Pulse Rate 98 96 107 H Respiratory Rate 20 Blood Pressure 104/65 111/68 Pulse Oximetry 97 96 Oxygen Delivery 04/02/25 09:21 04/02/25 10:00 04/02/25 12:00 Temperature Pulse Rate 126 H 91 78 Respiratory Rate Blood Pressure 122/73 Pulse Oximetry 100 Oxygen Delivery 04/02/25 14:00 04/02/25 14:29 04/02/25 14:29 Temperature Pulse Rate 71 71 71 Respiratory Rate 20 20 Blood Pressure Pulse Oximetry 95 Oxygen Delivery Room Air 04/02/25 16:00 04/02/25 16:22 Temperature 97.4 F L Pulse Rate 71 72 Respiratory Rate 18 Blood Pressure 111/63 Pulse Oximetry 96 Oxygen Delivery Exam Narrative sleepy female seen in room with significant other RA EXTREMITIES WITH DECREAED MUSCLE MASS AND ATROPHY Const Other: slowed but appropriate responses limited participation SHE GRASPS MY HAND AND RELEASES WITHOUT DELAY HENMT Other: normocephalic face symmetrical dental caries tongue midline possible glossitis soft but intelligible voice Eyes Other: tracing okay no apparent visual field changes or deficits slowed scanning and focus anicteric sclera Neck Other: no lymphadenopathy Chest Other: monitors present Resp Other: lungs with decreased breath sounds supine need to assess sitting up decreased at lung bases patient with a COARSE COUGH with productive clear sputum Cardio Other: RR without murmur GI Other: Soft rounded NT to palpation active bowel sounds Other: DEFER FULL EXAM wearing depends groin adeopathy noted by onc R groin Back/Spine/Pelvis Other: kyphosis equal rhomboid function back with loss of lordosis Skin Other: castro impaired Neuro Other: sleepy follows one step commands opens eyes no asterixis no clonus BUE function BUE with fair fine motor control BLE h LLE hip flexion poor 0-1 knee extension 1/5 ADF 0/5 no EHL PROM not to neutral poor proprioception great toe RLE hip flexion 2/5 knee extension 2/5 ADF 1/5 no EHL PROM to neutral MSR not elicited BLE no clonus no hoffmans no asterixis Extrem Other: loss of ADF to neutral Psych Other: slowed mental status but appropriate speech poor fund of knowledge affect tearful but GOOD EYE CONTACT H&P: Results Labs Labs: Short CBC 04/02/25 Range/Units 05:59 WBC 11.8 H (4.5-10.0) K/mm3 Hgb 8.8 L (12.0-15.0) g/dL Hct 27.5 L (37.0-47.0) % Plt Count 153 (150-375) k/mm3 BMP 04/02/25 05:59 Sodium 129 L Potassium 3.4 Chloride 97 L Carbon Dioxide 24 BUN 17 Creatinine 0.93 Glucose 91 Calcium 10.2 Liver Function 04/02/25 Range/Units 05:59 Albumin 3.2 L (3.5-5.1) g/dL Rehab Assessment and Plan (1) Altered mental status: Code(s): R41.82 - Altered mental status, unspecified Status: Acute Assessment and Plan: multifactorial (2) Patent foramen ovale with right to left shunt: Code(s): Q21.12 - Patent foramen ovale Status: Acute Assessment and Plan: n/a (3) Cardiomyopathy: Code(s): I42.9 - Cardiomyopathy, unspecified Status: Acute Assessment and Plan: may worsen fatigue and limb movment and BP response (4) Myopathy: Code(s): G72.9 - Myopathy, unspecified Status: Acute Assessment and Plan: weakness (5) Hypertension: Code(s): I10 - Essential (primary) hypertension Status: Acute Assessment and Plan: monitor for hypotension (6) Lumbosacral plexopathy: Code(s): G54.1 - Lumbosacral plexus disorders Status: Acute Assessment and Plan: likely from radiation of pelvis (7) Immobility: Code(s): Z74.09 - Other reduced mobility Status: Acute Assessment and Plan: limited mobility (8) Malaise and fatigue: Code(s): R53.81 - Other malaise; R53.83 - Other fatigue Status: Acute Assessment and Plan: multifactorial; Plan 1. up daily custom chair and cushion ill review sleep and appetite aides IS and PEP further recommendations to follow Additional Plan The patient has agreed to being admitted to our comprehensive inpatient rehab facility and can tolerate the intensity of services consisting of at least 180 minutes per day, a minimum of 5/7 days per week.? The patient/family have a good understanding of our discharge process patient has the potential to make improvements and needs at least 2 of the following multidisciplinary therapies, including but not limited to physical therapy, occupational therapy, speech therapy, respiratory therapy, nutritional services, wound care, and/or prosthetics orthotics and DME assessment.? Additionally, the patient will need services of rehab nursing to monitor blood pressures and hemodynamic stability, cardiac arrhythmias respiratory status bowel and bladder status and skin and monitor for atrial fibrillation, monitor for chest pain, and neurologic goal or mental status changes.? Given the patient's complex medical and rehab condition and risk of further complications, rehabilitation services cannot be safely or effectively provided at a lower level of care such as a [facility] facility.
--- NOTE | 2025-04-02 16:56 | WPDREHABCON ---
HPI Date/Time 04/02/25 16:56 Narrative The primary reason for rehab is [] The etiologic diagnosis is [] I saw this patient [id number] on [] The patient is a [] Therapy was initiated at the acute care facility and the patient transferred to us from [] on [] PRIOR LEVEL OF FUNCTION: [] CURRENT LEVEL OF FUNCTION: [] GOALS: Our therapists will evaluate the patient and establish the goals. However, upon pre-admission screening, the expected goals were to be [INDEPENDENT] with self-care, [INDEPENDENT] with transfers, and [INDEPENDENT] with functional mobility so that the patient can return home. ESTIMATED LENGTH OF STAY: [10-14 days] POTENTIAL BARRIERS TO DISCHARGE: [Patient lives alone.] [Family needs training.] [Severity of condition.] [Architectural barriers.] ACTIVE CO-MORBIDITIES PRESENT ON ADMISSION: Active co-morbidities include []. The above co-morbidities impact the patient's function and/or functional outcome by [] Covid The patient had a negative COVID test on []. [facility] Past Medical History Medical History (Updated 04/01/25 @ 16:26 by Александр Murray MD) Hypertension Benign breast lumps Surgical History Surgical History H/O: hysterectomy Family History Family History Sibling Diabetes mellitus Mother Breast cancer in female Daughter Hypertension Other Unknown family medical history Social History Social History Smoking packs per day: 1 Smoking cigarettes per day: 20.0 Years smoked: 30 Smoking pack-years: 30.00 Smoking status: Former smoker Tobacco type: cigarettes Smokeless tobacco user: other Second hand tobacco smoke exposure: No Smoking end date: 07/09/15 Additional smoking assessment comments: Smokes marijuana and chews nicotine gum Alcohol intake: former Drinks per week: 0 Substance use: current Substance use type: marijuana Last use: a week ago Lack of Transportation: YES Lack of Food: Never True Current Housing: I Have Housing Concerned About Future Housing: No Difficulty Paying Gas/Electric Bills: No Difficulty Paying for Meds: No Currently Unemployed: No Education: High School Diploma/GED Difficulty w/ Childcare or Family Care: No Living arrangements: with family Occupation/Education: other Gender identity (if verbalized by the patient): Female Spiritual care concerns: No Meds Home Medications and Allergies Home Medications ?Medication ?Instructions ?Recorded ?Confirmed ?Type inhalational spacing device #1 ea 01/27/20 03/29/25 Rx ([employer] [facility] spacer) Symbicort 80 mcg-4.5 mcg/actuation 2 puff inhalation Q12H #10.2 grams 08/04/21 03/29/25 Rx HFA aerosol inhaler (budesonide-formoterol) albuterol sulfate 90 mcg/actuation 2 inh inhalation Q6H PRN shortness 11/08/21 03/29/25 Rx aerosol inhaler of breath or wheezing #1 ea cholecalciferol (vitamin D3) 125 125 mcg PO DAILY 11/08/21 03/29/25 History mcg (5,000 unit) capsule clonazepam 1 mg tablet 1 mg PO TID 11/08/21 03/29/25 History triamterene 37.5 1 cap PO DAILY 11/08/21 03/29/25 History mg-hydrochlorothiazide 25 mg capsule verapamil 180 mg 24 hr 180 mg PO DAILY 11/08/21 03/29/25 History capsule,extended release albuterol sulfate 2.5 mg/3 mL See Rx Instructions .Route 07/31/22 03/29/25 Rx (0.083 %) solution for nebulization .COMPLEX #180 mL atorvastatin 40 mg tablet 40 mg PO DAILY 11/01/22 03/29/25 History duloxetine 30 mg capsule,delayed 30 mg PO DAILY 03/29/25 03/29/25 History release folic acid 1 mg tablet 1 mg PO DAILY 03/29/25 03/29/25 History loratadine 10 mg capsule 10 mg PO Q24H 03/29/25 03/29/25 History montelukast 10 mg tablet 10 mg PO QPM 03/29/25 03/29/25 History ondansetron HCl 8 mg tablet 8 mg PO Q12H PRN nausea and 03/29/25 03/29/25 History vomiting sennosides 8.6 mg capsule (senna) 17.2 mg PO BID 03/29/25 03/29/25 History Allergies Allergy/AdvReac Type Severity Reaction Status Date / Time mushroom Allergy Severe Anaphylaxis Verified 03/29/25 22:16 varenicline (From Chantix) Allergy Severe Depression Verified 03/29/25 22:16 bupropion (From Wellbutrin) AdvReac Severe Depression Verified 03/29/25 22:16 Vital Signs Vital Signs - 24 hr 04/01/25 17:00 04/01/25 18:00 04/01/25 20:00 Temperature 97.4 F L 98.4 F Pulse Rate 76 75 84 Respiratory Rate 22 H 17 Blood Pressure 97/53 L 111/55 L Pulse Oximetry 96 93 Oxygen Delivery 04/01/25 20:00 04/01/25 20:00 04/01/25 20:51 Temperature Pulse Rate 81 Respiratory Rate Blood Pressure Pulse Oximetry 93 95 Oxygen Delivery Room Air Room Air 04/01/25 21:47 04/01/25 22:00 04/02/25 00:00 Temperature Pulse Rate 94 90 80 Respiratory Rate Blood Pressure Pulse Oximetry Oxygen Delivery 04/02/25 02:00 04/02/25 04:00 04/02/25 06:00 Temperature Pulse Rate 84 93 88 Respiratory Rate Blood Pressure Pulse Oximetry Oxygen Delivery 04/02/25 08:00 04/02/25 08:00 04/02/25 08:11 Temperature 98.1 F Pulse Rate 94 96 Respiratory Rate 20 Blood Pressure 104/65 Pulse Oximetry 94 97 Oxygen Delivery Room Air 04/02/25 08:37 04/02/25 09:20 04/02/25 09:21 Temperature 98.1 F Pulse Rate 98 96 107 H Respiratory Rate 20 Blood Pressure 104/65 111/68 Pulse Oximetry 97 96 Oxygen Delivery 04/02/25 09:21 04/02/25 10:00 04/02/25 12:00 Temperature Pulse Rate 126 H 91 78 Respiratory Rate Blood Pressure 122/73 Pulse Oximetry 100 Oxygen Delivery 04/02/25 14:00 04/02/25 14:29 04/02/25 14:29 Temperature Pulse Rate 71 71 71 Respiratory Rate 20 20 Blood Pressure Pulse Oximetry 95 Oxygen Delivery Room Air 04/02/25 16:00 04/02/25 16:22 Temperature 97.4 F L Pulse Rate 71 72 Respiratory Rate 18 Blood Pressure 111/63 Pulse Oximetry 96 Oxygen Delivery H&P: Results Labs Labs: Short CBC 04/02/25 Range/Units 05:59 WBC 11.8 H (4.5-10.0) K/mm3 Hgb 8.8 L (12.0-15.0) g/dL Hct 27.5 L (37.0-47.0) % Plt Count 153 (150-375) k/mm3 BMP 04/02/25 05:59 Sodium 129 L Potassium 3.4 Chloride 97 L Carbon Dioxide 24 BUN 17 Creatinine 0.93 Glucose 91 Calcium 10.2 Liver Function 04/02/25 Range/Units 05:59 Albumin 3.2 L (3.5-5.1) g/dL
[2025-04-02] MEDS: cefTRIAXone 1 GM in SODIUM CHLORIDE 0.9% IV 50 ML 100 ML IVPB (17:50)
[2025-04-02] MEDS: FLUTICASONE/SALMETEROL 45-21 MCG INHALER 1 PUFF 2 PUFF INHALATION (20:39)
[2025-04-02 21:00] LABS: Thyroid Stimulating Hormone Reflex 2.120 uIU/mL (0.465-4.68)
[2025-04-02] MEDS: MONTELUKAST SODIUM 10 MG TABLET PO (21:01)
--- NOTE | 2025-04-02 22:32 | WPDCN ---
HPI Data of Consult Date/Time: 04/02/25 22:32 Requesting Physician: Olimpia Velasquez MD Primary Care Provider: Elyse Pinto, PHOTO EDITOR Consult Narrative Narrative: Iliana Montero is a 59 year old female Review of Systems Review of Systems: Constitutional: [] Eyes: [] ENT: [] Cardiovascular: [] Respiratory: [] Gastrointestinal: [] Genitourianry: [] Musculoskeletal: [] Integumentary/Breasts: [] Neurologic: [] Psychiatric: [] Endocrine: [] Hematologic/Lymphatic: [] Allergic/Immunologic: [] PMF Past Medical History Medical History (Updated 04/01/25 @ 16:26 by Александр Murray MD) Hypertension Benign breast lumps Surgical History Surgical History H/O: hysterectomy Family History Family History Sibling Diabetes mellitus Mother Breast cancer in female Daughter Hypertension Other Unknown family medical history Social History Social History Smoking packs per day: 1 Smoking cigarettes per day: 20.0 Years smoked: 30 Smoking pack-years: 30.00 Smoking status: Former smoker Tobacco type: cigarettes Smokeless tobacco user: other Second hand tobacco smoke exposure: No Smoking end date: 07/09/15 Additional smoking assessment comments: Smokes marijuana and chews nicotine gum Alcohol intake: former Drinks per week: 0 Substance use: current Substance use type: marijuana Last use: a week ago Lack of Transportation: YES Lack of Food: Never True Current Housing: I Have Housing Concerned About Future Housing: No Difficulty Paying Gas/Electric Bills: No Difficulty Paying for Meds: No Currently Unemployed: No Education: High School Diploma/GED Difficulty w/ Childcare or Family Care: No Living arrangements: with family Occupation/Education: other Gender identity (if verbalized by the patient): Female Spiritual care concerns: No Meds Home Medications and Allergies Home Medications ?Medication ?Instructions ?Recorded ?Confirmed ?Type inhalational spacing device #1 ea 01/27/20 03/29/25 Rx ([facility] spacer) Symbicort 80 mcg-4.5 mcg/actuation 2 puff inhalation Q12H #10.2 grams 08/04/21 03/29/25 Rx HFA aerosol inhaler (budesonide-formoterol) albuterol sulfate 90 mcg/actuation 2 inh inhalation Q6H PRN shortness 11/08/21 03/29/25 Rx aerosol inhaler of breath or wheezing #1 ea cholecalciferol (vitamin D3) 125 125 mcg PO DAILY 11/08/21 03/29/25 History mcg (5,000 unit) capsule clonazepam 1 mg tablet 1 mg PO TID 11/08/21 03/29/25 History triamterene 37.5 1 cap PO DAILY 11/08/21 03/29/25 History mg-hydrochlorothiazide 25 mg capsule verapamil 180 mg 24 hr 180 mg PO DAILY 11/08/21 03/29/25 History capsule,extended release albuterol sulfate 2.5 mg/3 mL See Rx Instructions .Route 07/31/22 03/29/25 Rx (0.083 %) solution for nebulization .COMPLEX #180 mL atorvastatin 40 mg tablet 40 mg PO DAILY 11/01/22 03/29/25 History duloxetine 30 mg capsule,delayed 30 mg PO DAILY 03/29/25 03/29/25 History release folic acid 1 mg tablet 1 mg PO DAILY 03/29/25 03/29/25 History loratadine 10 mg capsule 10 mg PO Q24H 03/29/25 03/29/25 History montelukast 10 mg tablet 10 mg PO QPM 03/29/25 03/29/25 History ondansetron HCl 8 mg tablet 8 mg PO Q12H PRN nausea and 03/29/25 03/29/25 History vomiting sennosides 8.6 mg capsule (senna) 17.2 mg PO BID 03/29/25 03/29/25 History Allergies Allergy/AdvReac Type Severity Reaction Status Date / Time mushroom Allergy Severe Anaphylaxis Verified 03/29/25 22:16 varenicline (From Chantix) Allergy Severe Depression Verified 03/29/25 22:16 bupropion (From Wellbutrin) AdvReac Severe Depression Verified 03/29/25 22:16 Vital Signs Vital Signs - 24 hr 04/02/25 00:00 04/02/25 02:00 04/02/25 04:00 Temperature Pulse Rate 80 84 93 Respiratory Rate Blood Pressure Pulse Oximetry Oxygen Delivery 04/02/25 06:00 04/02/25 08:00 04/02/25 08:00 Temperature Pulse Rate 88 94 Respiratory Rate Blood Pressure Pulse Oximetry 94 Oxygen Delivery Room Air 04/02/25 08:11 04/02/25 08:37 04/02/25 09:20 Temperature 98.1 F 98.1 F Pulse Rate 96 98 96 Respiratory Rate 20 20 Blood Pressure 104/65 104/65 Pulse Oximetry 97 97 Oxygen Delivery 04/02/25 09:21 04/02/25 09:21 04/02/25 10:00 Temperature Pulse Rate 107 H 126 H 91 Respiratory Rate Blood Pressure 111/68 122/73 Pulse Oximetry 96 100 Oxygen Delivery 04/02/25 12:00 04/02/25 14:00 04/02/25 14:29 Temperature Pulse Rate 78 71 71 Respiratory Rate 20 Blood Pressure Pulse Oximetry 95 Oxygen Delivery Room Air 04/02/25 14:29 04/02/25 16:00 04/02/25 16:22 Temperature 97.4 F L Pulse Rate 71 71 72 Respiratory Rate 20 18 Blood Pressure 111/63 Pulse Oximetry 96 Oxygen Delivery 04/02/25 18:00 04/02/25 21:00 Temperature Pulse Rate 80 90 Respiratory Rate Blood Pressure Pulse Oximetry Oxygen Delivery Exam Narrative: Constitutional: [] HENMT: [] Eyes: [] Neck: [] Chest: [] Respiratory: [] Cariology: [] GI: [] : [] Back/Spine/Pelvis: [] Skin: [] Neurologic: [] Extremities: [] Psychologic: [] Results Labs 04/02/25 05:59 04/02/25 05:59 Labs: Short CBC 04/02/25 Range/Units 05:59 WBC 11.8 H (4.5-10.0) K/mm3 Hgb 8.8 L (12.0-15.0) g/dL Hct 27.5 L (37.0-47.0) % Plt Count 153 (150-375) k/mm3 BMP 04/02/25 05:59 Sodium 129 L Potassium 3.4 Chloride 97 L Carbon Dioxide 24 BUN 17 Creatinine 0.93 Glucose 91 Calcium 10.2 Liver Function 04/02/25 Range/Units 05:59 Albumin 3.2 L (3.5-5.1) g/dL
[2025-04-03] VITALS (16 sets, daily range): BP systolic 82–111; BP diastolic 43–59; PULSE 80–121; RESP 17–24; TEMP 36.4–36.9; O2SAT 93–97
[2025-04-03] MEDS: ALBUTEROL SULFATE (*SP) AEROSOL 1 PUFF 2 PUFF INHALATION ×3 (01:40→13:38)
[2025-04-03] MEDS: CENTRAL LINE FLUSH 10 ML IV PUSH ×3 (05:30→21:18)
[2025-04-03 05:38] LABS: Hematocrit 26.2 % (37.0-47.0); Hemoglobin 8.4 g/dL (12.0-15.0); Mean Corpuscular HGB Conc 32.1 g/dl (32-36); Mean Corpuscular Hemoglobin 29.9 pg (26-34); Mean Corpuscular Volume 93.2 fl (80-100); Platelet Count Result 168 k/mm3 (150-375); Red Blood Count 2.81 M/mm3 (4.2-5.4); White Blood Count 14.2 K/mm3 (4.5-10.0)
[2025-04-03 05:59] LABS: Total Cells Counted 100
[2025-04-03 06:00] LABS: Band Neutrophils Percent 10 % (0-6); Lymphocytes Absolute Manual 0.85 K/mm3 (1.1-4.5); Lymphocytes Percent Manual 6 % (18-44); Monocytes Absolute Manual 0.71 K/mm3 (0.1-0.90); Monocytes Percent Manual 5 % (3-9); Neutrophils Absolute Manual 12.63 K/mm3 (1.3-6.7); Neutrophils Percent Manual 79 % (46-73)
[2025-04-03 06:01] LABS: Poikilocytosis Occasional; Schistocytes None Seen
[2025-04-03 06:08] LABS: Albumin Level 3.1 g/dL (3.5-5.1); Anion Gap 5 mmol/L (4-12); Blood Urea Nitrogen 26 mg/dL (7-17); Calcium 9.6 mg/dL (8.4-10.2); Carbon Dioxide 21 mmol/L (22-30); Chloride 98 mmol/L (98-107); Estimated CRCL calculation 43 ml/min; Estimated Glomerular Filt Rate 53; Glucose 94 mg/dL (65-110); Magnesium 1.7 mg/dL (1.6-2.3); Potassium 3.7 mmol/L (3.4-5.0); Sodium 124 mmol/L (137-145)
[2025-04-03 06:42] LABS: Thyroid Stimulating Hormone 1.950 uIU/mL (0.465-4.680)
[2025-04-03] MEDS: FLUTICASONE/SALMETEROL 45-21 MCG INHALER 1 PUFF 2 PUFF INHALATION ×2 (07:45→21:01)
[2025-04-03] MEDS: LORATADINE 10 MG TABLET PO (09:04)
[2025-04-03] MEDS: METOPROLOL TARTRATE 12.5 MG TABLET PO (09:04)
[2025-04-03] MEDS: CLOPIDOGREL BISULFATE 75 MG TABLET PO (09:04)
[2025-04-03] MEDS: LOSARTAN POTASSIUM 25 MG TABLET PO (09:04)
[2025-04-03] MEDS: VERAPAMIL HCL 180 MG TABLET ER PO (09:04)
[2025-04-03] MEDS: FOLIC ACID 1 MG TABLET PO (09:04)
[2025-04-03] MEDS: ATORVASTATIN 40 MG TABLET PO (09:04)
[2025-04-03] MEDS: clonazePAM (*CRX) 0.5 MG TABLET PO (09:43)
--- NOTE | 2025-04-03 14:53 | PM.IMPN ---
Progress Note: A&P Assessment and Plan (1) Altered mental status: Code(s): R41.82 - Altered mental status, unspecified Status: Acute Assessment and Plan: Altered mental status/acute encephalopathy: CT head without contrast showed age indeterminate focus of left frontal subcortical ischemia, no hemorrhage CTA head and neck showed no ICA stenosis or other acute arterial abnormality, lytic bony metastatic disease C2, C5, lytic bony metastatic disease right scapula with large associated soft tissue component, no large vessel arterial occlusion disease or other acute arterial abnormality. MRI brain unremarkable; no evidence of CVA or masses B12, folate normal. Ammonia level <9. VitD 52. Cortisol 17. Echocardiogram with EF of 40-45% with regional wall motion abnormality, PFO Neurology consulted Patient is awake but remains confused. Related to UTI? Related to hypercalcemia but calcium better past few days. Clonazepam resumed as needed and dose decreased (Dtr states patient only takes this once per day on average) PT/OT/ST. Continue to orient (2) Cardiomyopathy: Code(s): I42.9 - Cardiomyopathy, unspecified Status: Acute Assessment and Plan: CMP; Patent foramen ovale Echo showing EF 40-45% with regional wall motion abnormality and PFO with R-->L shunt Cardiology consulted. LE venous doppler negative for DVT so unlikely paradoxical CVA. Metoprolol tartrate started. Maxide stopped and losartan added Continue tele monitoring Continue Plavix, statin Will need home O2 evaluation before discharge (3) Patent foramen ovale with right to left shunt: Code(s): Q21.12 - Patent foramen ovale Status: Acute Assessment and Plan: As above (4) Urinary tract infection: Code(s): N39.0 - Urinary tract infection, site not specified Status: Acute Assessment and Plan: UA noted. Bandemia was 15-17% but better today at 10%. No BCx collected. Urine culture growing EColi sensitive to Rocephin WBC going up but no other source to suggest etiology. No diarrhea. Continue with ceftriaxone but increase to 2gm dose. If WBC higher tomorrow, will escalate abx (5) Hypercalcemia of malignancy: Code(s): E83.52 - Hypercalcemia Status: Acute Assessment and Plan: Hypercalcemia: Calcium level of 14.4 on admission. Likely secondary to malignancy and bony mets. CTA head and neck showing lytic lesion C2, C5. Lytic lesion right scapula with large soft tissue component. Received zoledronic acid, calcitonin, IV fluids in the ER Calcium levels have improved Follow (6) Hypokalemia: Code(s): E87.6 - Hypokalemia Status: Acute Assessment and Plan: HypoK+ and other electrolyte abnormalities with HypoMag and HypoNa Cortisol and TSH okay. Potassium and magnesium normal today. Sodium down to 124 probably related to poor oral intake; related to cymbalta? Check urine studies. Start IV fluids. (7) Ovarian cancer: Code(s): C56.9 - Malignant neoplasm of unspecified ovary Status: Acute Assessment and Plan: Ovarian CA with hx of metastatic cancer. Patient with stage IV ovarian cancer with metastasis Patient has been treated with chemo, radiation in the past, currently on maintenance therapy with Keytruda. MRI brain unremarkable Patient follows up with Oncology at [facility] did accept patient but family declined transfer (8) COPD (chronic obstructive pulmonary disease): Qualifiers: COPD type: unspecified COPD Qualified Code(s): J44.9 - Chronic obstructive pulmonary disease, unspecified Code(s): J44.9 - Chronic obstructive pulmonary disease, unspecified Status: Acute Assessment and Plan: Stable. No wheezing. Currently on room air (9) Hypertension: Code(s): I10 - Essential (primary) hypertension Status: Acute Assessment and Plan: Patient's blood pressure was reviewed on 04/03 Blood pressure soft at times Will continue to monitor. Plan Code status: Full DVT prophylaxis: Heparin subQ Disposition: Pending improvement Subjective Date/time seen: 04/03/25 14:53 Interval history: 59yo female with HTN and metastatic ovarian CA here for AMS. Alert but remains confused so hx unreliable. Family in the room and they were updated. Review of Systems Review of Systems: ROS unobtainable: Yes unobtainable due to mental status Exam Narrative: AF 98.4 111/59 89 20 97% ra Gen - NARD Chest - distant, clear BS. Right upper chest port accessed CV - RRR with S1-S2. Tele showing no significant dysrhythmias Abd - soft, NT/ND with positive bowel sounds. Ext - no pedal edema Neuro -more awake today. Slow to respond. Oriented to month only. Psych- flat affect Skin - Warm and dry. Objective Data Vital Signs Vital Signs: Vital Signs - 24 hr 04/02/25 16:00 04/02/25 16:22 04/02/25 18:00 Temperature 97.4 F L Pulse Rate 71 72 80 Respiratory Rate 18 Blood Pressure 111/63 Pulse Oximetry 96 Oxygen Delivery Fraction of Inspired Oxygen 04/02/25 20:03 04/02/25 20:39 04/02/25 20:39 Temperature Pulse Rate 84 88 88 Respiratory Rate 18 18 Blood Pressure Pulse Oximetry 94 Oxygen Delivery Room Air Fraction of Inspired Oxygen 21 04/02/25 21:00 04/02/25 22:00 04/03/25 00:00 Temperature 97.7 F Pulse Rate 90 94 97 Respiratory Rate 17 Blood Pressure 82/48 L Pulse Oximetry 93 Oxygen Delivery Fraction of Inspired Oxygen 04/03/25 00:00 04/03/25 01:40 04/03/25 02:00 Temperature Pulse Rate 91 96 102 H Respiratory Rate 20 Blood Pressure Pulse Oximetry Oxygen Delivery Fraction of Inspired Oxygen 04/03/25 04:00 04/03/25 06:00 04/03/25 08:00 Temperature 98.4 F Pulse Rate 104 H 108 H 104 H Respiratory Rate 20 Blood Pressure 111/59 L Pulse Oximetry 97 Oxygen Delivery Fraction of Inspired Oxygen 04/03/25 08:00 04/03/25 08:00 04/03/25 08:00 Temperature 98.4 F Pulse Rate 121 H 109 H 109 H Respiratory Rate 20 20 Blood Pressure 111/59 L Pulse Oximetry 97 97 Oxygen Delivery Room Air Fraction of Inspired Oxygen 21 04/03/25 09:04 04/03/25 10:00 04/03/25 12:00 Temperature Pulse Rate 121 H 99 89 Respiratory Rate Blood Pressure Pulse Oximetry Oxygen Delivery Fraction of Inspired Oxygen Intake/Output Intake/Output: Intake & Output 03/31/25 04/01/25 04/02/25 04/03/25 23:59 23:59 23:59 23:59 Intake Total 660 325 490 480 Output Total 800 400 Balance -140 325 90 480 Meds/Results Medications: Active Medications Generic Name Dose Route Start Last Admin Trade Name Freq PRN Reason Stop Dose Admin Acetaminophen 650 mg 03/29/25 19:45 04/02/25 08:37 Acetaminophen 325 Mg Tablet PO 650 mg Q4H PRN Administration Mild Pain (1-3) or Fever Albuterol 2 puff 03/30/25 02:00 04/03/25 13:38 Albuterol Sulfate (*Sp) Aerosol 1 Puff INHALATION 2 puff Q6HRT DANIELE Administration Albuterol 2.5 mg 03/29/25 21:50 Albuterol Sulfate Neb 2.5 Mg/3 Ml Inh INHALATION Q4-6H PRN Shortness Of Breath Atorvastatin Calcium 40 mg 03/30/25 09:00 04/03/25 09:04 Atorvastatin 40 Mg Tablet PO 40 mg DAILY DANIELE Administration Clonazepam 0.5 mg 04/02/25 20:01 04/03/25 09:43 Clonazepam (*Crx) 0.5 Mg Tablet PO 0.5 mg TID PRN Administration anxiety Clopidogrel Bisulfate 75 mg 03/30/25 09:00 04/03/25 09:04 Clopidogrel Bisulfate 75 Mg Tablet PO 75 mg QAM DANIELE Administration Duloxetine HCl 30 mg 03/30/25 09:00 04/03/25 09:04 Duloxetine Hcl 30 Mg Capsule.Dr PO 30 mg DAILY DANIELE Administration Folic Acid 1 mg 03/30/25 09:00 04/03/25 09:04 Folic Acid 1 Mg Tablet PO 1 mg DAILY DANIELE Administration Heparin Sodium (Beef Lung) 50 units 03/30/25 09:00 04/03/25 09:06 Heparin Flush 50 Units/5 Ml Syringe IV PUSH 50 units QAM DANIELE Administration Heparin Sodium (Beef Lung) 50 units 03/29/25 23:50 Heparin Flush 50 Units/5 Ml Syringe IV PUSH PRN PRN after intermittent infusion Heparin Sodium (Beef Lung) 50 units 03/29/25 23:50 Heparin Flush 50 Units/5 Ml Syringe IV PUSH PRN PRN after blood draws Heparin Sodium (Porcine) 500 units 03/29/25 23:50 Heparin Sodium Lock Flush 500 Units/5 Ml Syringe IV PUSH PRN PRN see comments below Heparin Sodium (Porcine) 5,000 units 03/30/25 14:00 04/03/25 14:17 Heparin Sodium 5,000 Units/Ml Vial SUB-Q 5,000 units Q8HR DANIELE Administration Ceftriaxone Sodium 1 gm/ 50 mls @ 100 mls/hr 03/29/25 18:00 04/02/25 18:28 Sodium Chloride IVPB 04/03/25 18:29 Infused Q24H DANIELE Infusion Loratadine 10 mg 03/30/25 09:00 04/03/25 09:04 Loratadine 10 Mg Tablet PO 10 mg QAM DANIELE Administration Losartan Potassium 25 mg 04/02/25 09:00 04/03/25 09:04 Losartan Potassium 25 Mg Tablet PO 25 mg DAILY DANIELE Administration Metoprolol Tartrate 12.5 mg 03/31/25 21:00 04/03/25 09:04 Metoprolol Tartrate 12.5 Mg Tablet PO 12.5 mg Q12HR DANIELE Administration Montelukast Sodium 10 mg 03/29/25 21:00 04/02/25 21:01 Montelukast Sodium 10 Mg Tablet PO 10 mg HS DANIELE Administration Polyethylene Glycol 17 gm 04/02/25 09:00 04/03/25 09:06 Polyethylene Glycol 3350 17 Gm Powd.Pack PO 17 gm QAM DANIELE Administration Fluticasone/Salmeterol 2 puff 03/29/25 20:00 04/03/25 07:45 Fluticasone/Salmeterol 45-21 Mcg Inhaler 1 Puff INHALATION 2 puff Q12HRT DANIELE Administration Senna 17.2 mg 03/30/25 09:00 04/02/25 08:36 Sennosides 8.6 Mg Tablet PO 17.2 mg On Hold: 04/02/25 08:45 BID DANIELE Administration Sodium Chloride 10 ml 03/30/25 06:00 04/03/25 14:22 Central Line Flush IV PUSH 10 ml Q8HR DANIELE Administration Verapamil HCl 180 mg 03/30/25 08:00 04/03/25 09:04 Verapamil Hcl 180 Mg Tablet Er PO 180 mg DAILY@0800 DANIELE Administration Radiology Results: ITS Impressions Chest X-Ray 03/28/25 17:17 Impression: No acute cardiopulmonary abnormality. Head CT 03/28/25 17:39 Impression: Age-indeterminate focus of left frontal subcortical ischemia. No hemorrhage. MRI recommended Head/Neck CTA 03/29/25 08:51 IMPRESSION: CTA NECK: 1. No ICA stenosis or other acute arterial abnormality. 2. Lytic bony metastatic disease C2, C5. 3. Lytic bony metastatic disease right scapula with large associated soft tissue component. CTA HEAD: 1. No large vessel arterial occlusive disease or other acute arterial abnormality. Brain MRI 03/30/25 15:18 IMPRESSION: 1. Scattered ossific white matter T2 hyperintensity consistent with chronic small vessel ischemic disease. No acute intracranial process. Venous Doppler Study 03/31/25 17:18 IMPRESSION: 1: No lower extremity deep venous thrombosis. Labs Labs: Laboratory Results - last 24 hr 04/02/25 04/03/25 00:58 05:25 WBC 14.2 H RBC 2.81 L Hgb 8.4 L Hct 26.2 L MCV 93.2 MCH 29.9 MCHC 32.1 RDW 18.1 H Plt Count 168 MPV 9.6 Immature Gran % (Auto) Not Reportable Neut % (Auto) Not Reportable Lymph % (Auto) Not Reportable [place] % (Auto) Not Reportable Eos % (Auto) Not Reportable Baso % (Auto) Not Reportable Lymph # (Auto) Not Reportable [place] # (Auto) Not Reportable Eos # (Auto) Not Reportable Baso # (Auto) Not Reportable Abs Immat Gran (auto) Not Reportable Absolute Neuts (auto) Not Reportable Absolute Nucleated RBC Not Reportable Total Counted 100 Neutrophils % (Manual) 79 H Band Neutrophils % 10 H Lymphocytes % (Manual) 6 L Monocytes % (Manual) 5 Nucleated RBC % Not Reportable Abs Neuts (Manual) 12.63 H Abs Lymphs (Manual) 0.85 L Abs Monocytes (Manual) 0.71 Platelet Estimate Adequate Poikilocytosis Occasional Schistocytes None seen Sodium 124 L Potassium 3.7 Chloride 98 Carbon Dioxide 21 L Anion Gap 5 BUN 26 H Creatinine 1.06 H Estim Creat Clear Calc 43 Estimated GFR 53 L Glucose 94 Calcium 9.6 Phosphorus 3.0 Magnesium 1.7 Albumin 3.1 L TSH 1.950 TSH (Reflex) 2.120
[2025-04-03] MEDS: KCL 40 MEQ/D5/0.9% SOD CHL 1,000 ML 70 ML IV CONT (18:30)
[2025-04-03] MEDS: cefTRIAXone 2 GM in SODIUM CHLORIDE 0.9% IV 100 ML 200 ML IVPB (18:34)
--- NOTE | 2025-04-03 20:40 | PC.NURSE ---
PAVEL Tuttle notified of Vital signs. New orders received.
[2025-04-03] MEDS: ALBUMIN HUMAN 25% 25 GM/100 ML 100 ML IVPB ×2 (21:16→22:29)
[2025-04-03] MEDS: MONTELUKAST SODIUM 10 MG TABLET PO (21:17)
--- NOTE | 2025-04-03 23:20 | PC.NURSE ---
PAVEL Tuttle updated on vital signs. New orders entered per TICKET WORKER.
[2025-04-03] MEDS: MIDODRINE HCL 10 MG TABLET PO (23:27)
[2025-04-04] VITALS (27 sets, daily range): BP systolic 86–110; BP diastolic 45–61; PULSE 82–103; RESP 12–26; TEMP 36.4–37.1; O2SAT 94–99
--- NOTE | 2025-04-04 00:11 | P.PNCROSS_ITS ---
Event Note Event Note Event Note: Called by nursing for patient being hypotensive 91/43 with map of 59, albumin o rdered Map has improved however blood pressures are still soft, midodrine added Patient easily wakes to voice no respiratory distress at this time Patient is a full code and has a port
[2025-04-04] MEDS: SODIUM CHLORIDE 0.9% IV 1,000 ML 500 ML IV CONT (00:56)
[2025-04-04 04:38] LABS: Mean Corpuscular HGB Conc 32.0 g/dl (32-36); Mean Corpuscular Hemoglobin 30.0 pg (26-34); Mean Corpuscular Volume 93.9 fl (80-100); Platelet Count Result 131 k/mm3 (150-375); Red Blood Count 2.13 M/mm3 (4.2-5.4); White Blood Count 11.2 K/mm3 (4.5-10.0)
[2025-04-04 04:41] LABS: Hematocrit 20.0 % (37.0-47.0); Hemoglobin 6.4 g/dL (12.0-15.0)
[2025-04-04 05:02] LABS: Alanine Aminotransferase 23 U/L (6-35); Albumin Level 3.3 g/dL (3.5-5.1); Alkaline Phosphatase 66 U/L (38-126); Anion Gap 8 mmol/L (4-12); Aspartate Amino Transferase 25 U/L (14-36); Bilirubin,Total 0.4 mg/dL (0.2-1.3); Blood Urea Nitrogen 25 mg/dL (7-17); Calcium 8.7 mg/dL (8.4-10.2); Carbon Dioxide 20 mmol/L (22-30); Chloride 105 mmol/L (98-107); Estimated CRCL calculation 33 ml/min; Estimated Glomerular Filt Rate 39; Glucose 114 mg/dL (65-110); Magnesium 1.8 mg/dL (1.6-2.3); Potassium 3.8 mmol/L (3.4-5.0); Sodium 133 mmol/L (137-145); Total Protein 5.9 g/dL (6.3-8.2)
[2025-04-04 05:05] LABS: Anisocytosis 1+; Band Neutrophils Percent 6 % (0-6); Hypochromasia 1+; Lymphocytes Absolute Manual 1.00 K/mm3 (1.1-4.5); Lymphocytes Percent Manual 9.0 % (18-44); Monocytes Absolute Manual 0.44 K/mm3 (0.1-0.90); Monocytes Percent Manual 4 % (3-9); Myelocytes Percent 1 %; Neutrophils Absolute Manual 9.63 K/mm3 (1.3-6.7); Neutrophils Percent Manual 80 % (46-73); Ovalocytes 1+; Schistocytes None Seen; Total Cells Counted 100
[2025-04-04 05:18] LABS: Urea Random Urine 274 MG/DL
--- NOTE | 2025-04-04 05:48 | PC.NURSE ---
Two calls made to daughter for blood transfusion consent. Calls go directly to voicemail, messages left to please call back TASHA.
[2025-04-04] MEDS: CENTRAL LINE FLUSH 10 ML IV PUSH ×3 (06:10→22:38)
[2025-04-04] MEDS: FLUTICASONE/SALMETEROL 45-21 MCG INHALER 1 PUFF 2 PUFF INHALATION (07:34)
[2025-04-04] MEDS: SODIUM CHLORIDE 0.9% IV 250 ML 30 ML IV CONT (08:37)
[2025-04-04] MEDS: TUBING, BLOOD PLUM PUMP TUBING 1 EACH XX (08:38)
[2025-04-04] MEDS: ATORVASTATIN 40 MG TABLET PO (08:38)
[2025-04-04] MEDS: FOLIC ACID 1 MG TABLET PO (08:38)
[2025-04-04] MEDS: LORATADINE 10 MG TABLET PO (08:39)
[2025-04-04] MEDS: MIDODRINE HCL 10 MG TABLET PO ×3 (08:39→16:11)
--- NOTE | 2025-04-04 09:54 | P.PNIM_ITS ---
Progress Note: A&P Assessment and Plan (1) Anemia: Code(s): D64.9 - Anemia, unspecified Status: Acute Assessment and Plan: Patient with Hgb 6.4 this morning. No obvious acute blood loss but patient with HoTN so felt less likely this was related to dilution from IV fluids. Currently receiving PRBCs. Serial HHs. Check stool guaiac. Consider CT abd/pelvis. Add PPI therapy. Consider GI consult. (2) Hypotension: Code(s): I95.9 - Hypotension, unspecified Status: Acute Assessment and Plan: HoTN noted overnight and IVF bolus given. Albumin given. Midodrine started. BP low but improved. Monitor closely with PRBC. Check PCT and lactic. (3) Altered mental status: Code(s): R41.82 - Altered mental status, unspecified Status: Acute Assessment and Plan: Altered mental status/acute encephalopathy: CT head without contrast showed age indeterminate focus of left frontal subcortical ischemia, no hemorrhage CTA head and neck showed no ICA stenosis or other acute arterial abnormality. No large vessel arterial occlusion disease or other acute arterial abnormality of the head. MRI brain unremarkable; no evidence of CVA or masses B12, folate normal. Ammonia level <9. VitD 52. Cortisol 17. Echo with EF of 40-45% with regional wall motion abnormality, PFO Neurology consulted Patient is more awake today and now oriented. Probably AMS related to UTI and/or hypercalcemia and now has improved. Will follow. PT/OT/ST. Continue to orient (4) Cardiomyopathy: Code(s): I42.9 - Cardiomyopathy, unspecified Status: Acute Assessment and Plan: CMP; Patent foramen ovale Echo showing EF 40-45% with regional wall motion abnormality and PFO with R-->L shunt Cardiology consulted. LE venous doppler negative for DVT so unlikely paradoxical CVA. Metoprolol tartrate started. Maxide stopped and losartan added Due to HoTN and anemia, Plavix stopped. Verapamil, metoprolol and losartan held. Continue tele monitoring Continue statin Will need home O2 evaluation before discharge (5) Patent foramen ovale with right to left shunt: Code(s): Q21.12 - Patent foramen ovale Status: Acute Assessment and Plan: As above (6) Urinary tract infection: Code(s): N39.0 - Urinary tract infection, site not specified Status: Acute Assessment and Plan: UA noted. Bandemia was 15-17% but better today at 6%. No BCx collected. Urine culture growing EColi sensitive to Rocephin WBC was going up but now trending down. Continue with ceftriaxone (7) Acute hyponatremia: Code(s): E87.1 - Hypo-osmolality and hyponatremia Status: Acute Assessment and Plan: Sodium dropped to 124. Urine studies c/w pre-renal Sodium up to 133 felt related to IV fluids -> 9mmol in 23 hours. Goal rate of correction would be 4-6mmol in 24 hours. She is malnurished and thus high risk for complications so will give DDAVP and start D5W. Serial Sodium levels. Follow. (8) Hypercalcemia of malignancy: Code(s): E83.52 - Hypercalcemia Status: Acute Assessment and Plan: Calcium level of 14.4 on admission. Likely secondary to malignancy and bony mets. CTA head and neck showing lytic lesion C2, C5. Lytic lesion right scapula with large soft tissue component. Received zoledronic acid, calcitonin, IV fluids in the ER Calcium levels have improved Follow (9) Hypokalemia: Code(s): E87.6 - Hypokalemia Status: Acute Assessment and Plan: HypoK+ with HypoMag Cortisol and TSH okay. Potassium and magnesium normal today. Follow. (10) Ovarian cancer: Code(s): C56.9 - Malignant neoplasm of unspecified ovary Status: Acute Assessment and Plan: Ovarian CA with hx of metastatic cancer. Patient with stage IV ovarian cancer with metastasis Patient has been treated with chemo, radiation in the past, currently on maintenance therapy with Keytruda. MRI brain unremarkable Patient follows up with Oncology at [facility] did accept patient but family declined transfer (11) COPD (chronic obstructive pulmonary disease): Qualifiers: COPD type: unspecified COPD Qualified Code(s): J44.9 - Chronic obstructive pulmonary disease, unspecified Code(s): J44.9 - Chronic obstructive pulmonary disease, unspecified Status: Acute Assessment and Plan: Stable. No wheezing. Currently on room air Hold Advair since it can interact with DDAVP (12) Hypertension: Code(s): I10 - Essential (primary) hypertension Status: Acute Assessment and Plan: Patient's blood pressure was reviewed on 04/04 Blood pressure soft and her anti-HTN meds are now on hold. Will continue to monitor. Plan Code status: Full DVT prophylaxis: Heparin subQ Disposition: Pending improvement Subjective Date/time seen: 04/04/25 09:54 Interval history: 59yo female with HTN and metastatic ovarian CA here for AMS. Patient more awake, alert and oriented today. She developed HoTN overnight with BP 82/48. Provider called and Albumin given and Midodrine started. Also received 500mL fluid bolus. This morning, her Hgb was 6.4 and 2U PRBCs ordered. No evidence of acute blood loss. She has a cough that is nonproductive. No CP or SOB but has SMITH. Slept well last night. No abd or back pain. Exam Narrative: AF 97.8 98/52 103 16 98% ra Gen - NARD Chest - decreased BS in the right base and dull to precussion. Right upper chest port accessed CV - RRR with S1-S2. Tele showing no significant dysrhythmias Abd - soft, NT/ND with positive bowel sounds. No cullens or turners signs. Ext - no pedal edema Neuro - awake, alert and oriented x4. Psych- more animated today. talkative Skin - Warm and dry. appears tanned Objective Data Vital Signs Vital Signs: Vital Signs - 24 hr 04/03/25 10:00 04/03/25 12:00 04/03/25 14:00 Temperature Pulse Rate 99 89 86 Respiratory Rate Blood Pressure Pulse Oximetry Oxygen Delivery Fraction of Inspired Oxygen 04/03/25 16:00 04/03/25 16:00 04/03/25 18:00 Temperature 97.7 F Pulse Rate 80 88 86 Respiratory Rate 24 H Blood Pressure 91/43 L Pulse Oximetry 95 Oxygen Delivery Fraction of Inspired Oxygen 04/03/25 20:00 04/03/25 20:00 04/03/25 20:00 Temperature 97.6 F Pulse Rate 84 84 84 Respiratory Rate 18 18 Blood Pressure 84/57 L Pulse Oximetry 97 97 Oxygen Delivery Room Air Fraction of Inspired Oxygen 04/03/25 21:01 04/03/25 21:24 04/03/25 22:00 Temperature Pulse Rate 81 84 82 Respiratory Rate Blood Pressure Pulse Oximetry 95 Oxygen Delivery Room Air Fraction of Inspired Oxygen 04/04/25 00:00 04/04/25 00:00 04/04/25 02:00 Temperature 98.4 F Pulse Rate 82 82 Respiratory Rate 18 Blood Pressure 86/45 L 93/52 L Pulse Oximetry 96 Oxygen Delivery Fraction of Inspired Oxygen 04/04/25 02:00 04/04/25 04:00 04/04/25 04:32 Temperature 97.6 F Pulse Rate 85 88 92 Respiratory Rate 16 Blood Pressure 90/53 L Pulse Oximetry 98 Oxygen Delivery Fraction of Inspired Oxygen 04/04/25 06:00 04/04/25 07:37 04/04/25 07:38 Temperature Pulse Rate 101 H 99 99 Respiratory Rate 15 15 Blood Pressure Pulse Oximetry Oxygen Delivery Fraction of Inspired Oxygen 04/04/25 07:39 04/04/25 08:00 04/04/25 08:00 Temperature 98.4 F Pulse Rate 99 Respiratory Rate 20 Blood Pressure 88/47 L Pulse Oximetry 95 99 Oxygen Delivery Room Air Room Air Fraction of Inspired Oxygen 04/04/25 08:34 04/04/25 08:52 Temperature 98.6 F 97.8 F Pulse Rate 103 H 103 H Respiratory Rate 12 16 Blood Pressure 92/49 L 87/49 L Pulse Oximetry 98 98 Oxygen Delivery Fraction of Inspired Oxygen Intake/Output Intake/Output: Intake & Output 04/01/25 04/02/25 04/03/25 04/04/25 23:59 23:59 23:59 23:59 Intake Total 083 451 4819 2189.3 Output Total 400 500 400 Balance 325 90 500 1789.3 Meds/Results Medications: Active Medications Generic Name Dose Route Start Last Admin Trade Name Freq PRN Reason Stop Dose Admin Acetaminophen 650 mg 03/29/25 19:45 04/02/25 08:37 Acetaminophen 325 Mg Tablet PO 650 mg Q4H PRN Administration Mild Pain (1-3) or Fever Albuterol 2.5 mg 03/29/25 21:50 Albuterol Sulfate Neb 2.5 Mg/3 Ml Inh INHALATION Q4-6H PRN Shortness Of Breath Albuterol 2 puff 04/03/25 17:11 Albuterol Sulfate (*Sp) Aerosol 1 Puff INHALATION Q6HRT PRN Shortness Of Breath Or Wheezing Atorvastatin Calcium 40 mg 03/30/25 09:00 04/04/25 08:38 Atorvastatin 40 Mg Tablet PO 40 mg DAILY DANIELE Administration Clonazepam 0.5 mg 04/02/25 20:01 04/03/25 09:43 Clonazepam (*Crx) 0.5 Mg Tablet PO 0.5 mg TID PRN Administration anxiety Duloxetine HCl 30 mg 03/30/25 09:00 04/04/25 08:38 Duloxetine Hcl 30 Mg Capsule.Dr PO 30 mg DAILY DANIELE Administration Folic Acid 1 mg 03/30/25 09:00 04/04/25 08:38 Folic Acid 1 Mg Tablet PO 1 mg DAILY DANIELE Administration Heparin Sodium (Beef Lung) 50 units 03/30/25 09:00 04/04/25 08:50 Heparin Flush 50 Units/5 Ml Syringe IV PUSH Not Given QAM DANIELE Heparin Sodium (Beef Lung) 50 units 03/29/25 23:50 Heparin Flush 50 Units/5 Ml Syringe IV PUSH PRN PRN after intermittent infusion Heparin Sodium (Beef Lung) 50 units 03/29/25 23:50 Heparin Flush 50 Units/5 Ml Syringe IV PUSH PRN PRN after blood draws Heparin Sodium (Porcine) 500 units 03/29/25 23:50 Heparin Sodium Lock Flush 500 Units/5 Ml Syringe IV PUSH PRN PRN see comments below Ceftriaxone Sodium 2 gm/ 100 mls @ 200 mls/hr 04/03/25 16:30 04/03/25 19:05 Sodium Chloride IVPB Infused DAILY@1600 DANIELE Infusion Potassium Chloride/Dextrose/Sod Cl 1,000 mls @ 70 mls/hr 04/03/25 17:15 04/04/25 08:38 Kcl 40 Meq/D5ns IV CONT 0 mls/hr .[id number] DANIELE Infusion Sodium Chloride 250 mls @ 30 mls/hr 04/04/25 05:19 04/04/25 08:37 Normal Saline Iv IV CONT 04/04/25 13:38 30 mls/hr .[id number] STA Administration Loratadine 10 mg 03/30/25 09:00 04/04/25 08:39 Loratadine 10 Mg Tablet PO 10 mg QAM DANIELE Administration Losartan Potassium 25 mg 04/02/25 09:00 04/03/25 09:04 Losartan Potassium 25 Mg Tablet PO 25 mg On Hold: 04/04/25 08:20 DAILY DANIELE Administration Metoprolol Tartrate 12.5 mg 03/31/25 21:00 04/03/25 21:24 Metoprolol Tartrate 12.5 Mg Tablet PO Not Given On Hold: 04/04/25 08:20 Q12HR DANIELE Midodrine 10 mg 04/03/25 23:20 04/04/25 08:39 Midodrine Hcl 10 Mg Tablet PO 10 mg TID DANIELE Administration Montelukast Sodium 10 mg 03/29/25 21:00 04/03/25 21:17 Montelukast Sodium 10 Mg Tablet PO 10 mg HS DANIELE Administration Pantoprazole Sodium 40 mg 04/04/25 09:00 Pantoprazole Sodium Iv 40 Mg Vial IV PUSH Q12HR [facility] Polyethylene Glycol 17 gm 04/02/25 09:00 04/03/25 09:06 Polyethylene Glycol 3350 17 Gm Powd.Pack PO 17 gm QAM DANIELE Administration Fluticasone/Salmeterol 2 puff 03/29/25 20:00 04/04/25 07:34 Fluticasone/Salmeterol 45-21 Mcg Inhaler 1 Puff INHALATION 2 puff Q12HRT DANIELE Administration Senna 17.2 mg 03/30/25 09:00 04/02/25 08:36 Sennosides 8.6 Mg Tablet PO 17.2 mg On Hold: 04/02/25 08:45 BID DANIELE Administration Sodium Chloride 10 ml 03/30/25 06:00 04/04/25 06:10 Central Line Flush IV PUSH 10 ml Q8HR DANIELE Administration Verapamil HCl 180 mg 03/30/25 08:00 04/04/25 08:38 Verapamil Hcl 180 Mg Tablet Er PO Not Given On Hold: 04/04/25 08:20 DAILY@0800 [facility] Radiology Results: ITS Impressions Chest X-Ray 03/28/25 17:17 Impression: No acute cardiopulmonary abnormality. Head CT 03/28/25 17:39 Impression: Age-indeterminate focus of left frontal subcortical ischemia. No hemorrhage. MRI recommended Head/Neck CTA 03/29/25 08:51 IMPRESSION: CTA NECK: 1. No ICA stenosis or other acute arterial abnormality. 2. Lytic bony metastatic disease C2, C5. 3. Lytic bony metastatic disease right scapula with large associated soft tissue component. CTA HEAD: 1. No large vessel arterial occlusive disease or other acute arterial abnormality. Brain MRI 03/30/25 15:18 IMPRESSION: 1. Scattered ossific white matter T2 hyperintensity consistent with chronic small vessel ischemic disease. No acute intracranial process. Venous Doppler Study 03/31/25 17:18 IMPRESSION: 1: No lower extremity deep venous thrombosis. Labs Labs: Laboratory Results - last 24 hr 04/04/25 04/04/25 04:25 05:46 WBC 11.2 H RBC 2.13 L Hgb 6.4 L* Hct 20.0 L* MCV 93.9 MCH 30.0 MCHC 32.0 RDW 18.2 H Plt Count 131 L MPV 9.4 Immature Gran % (Auto) Not Reportable Neut % (Auto) Not Reportable Lymph % (Auto) Not Reportable [place] % (Auto) Not Reportable Eos % (Auto) Not Reportable Baso % (Auto) Not Reportable Lymph # (Auto) Not Reportable [place] # (Auto) Not Reportable Eos # (Auto) Not Reportable Baso # (Auto) Not Reportable Abs Immat Gran (auto) Not Reportable Absolute Neuts (auto) Not Reportable Absolute Nucleated RBC Not Reportable Total Counted 100 Neutrophils % (Manual) 80 H Band Neutrophils % 6 Lymphocytes % (Manual) 9.0 L Monocytes % (Manual) 4 Myelocytes % 1 Nucleated RBC % Not Reportable Abs Neuts (Manual) 9.63 H Abs Lymphs (Manual) 1.00 L Abs Monocytes (Manual) 0.44 Platelet Estimate Adequate Hypochromasia 1+ Anisocytosis 1+ Ovalocytes 1+ Schistocytes None seen Sodium 133 L Potassium 3.8 Chloride 105 Carbon Dioxide 20 L Anion Gap 8 BUN 25 H Creatinine 1.38 H Estim Creat Clear Calc 33 Estimated GFR 39 L Glucose 114 H Calcium 8.7 Phosphorus 2.7 Magnesium 1.8 Total Bilirubin 0.4 AST 25 ALT 23 Alkaline Phosphatase 66 Total Protein 5.9 L Albumin 3.3 L Ur Random Sodium 35 Ur Random Urea 274 Urine Creatinine 46.9 Blood Type O Positive Antibody Screen Negative Crossmatch See Detail
[2025-04-04] MEDS: DESMOPRESSIN ACETATE 4 MCG/ML AMP 2 MCG SUB-Q (12:20)
[2025-04-04] MEDS: DEXTROSE 5% 1,000 ML 1,000 ML 70 ML IV CONT (14:08)
[2025-04-04] MEDS: PANTOPRAZOLE SODIUM IV 40 MG VIAL IV PUSH ×2 (14:09→22:40)
[2025-04-04 14:10] LABS: Hematocrit 30.5 % (37.0-47.0); Hemoglobin 9.9 g/dL (12.0-15.0)
[2025-04-04 14:24] LABS: Sodium 135 mmol/L (137-145)
[2025-04-04 14:45] LABS: Procalcitonin 0.5 ng/mL
[2025-04-04] MEDS: cefTRIAXone 2 GM in SODIUM CHLORIDE 0.9% IV 100 ML 200 ML IVPB (16:11)
[2025-04-04 18:31] LABS: Hematocrit 30.4 % (37.0-47.0); Hemoglobin 10.0 g/dL (12.0-15.0)
[2025-04-04 18:37] LABS: Sodium 132 mmol/L (137-145)
[2025-04-04] MEDS: MONTELUKAST SODIUM 10 MG TABLET PO (22:38)
[2025-04-05] VITALS (16 sets, daily range): BP systolic 105–129; BP diastolic 59–71; PULSE 69–104; RESP 16–20; TEMP 36.3–37.6; O2SAT 94–98
[2025-04-05 01:54] LABS: Hematocrit 29.3 % (37.0-47.0); Hemoglobin 9.7 g/dL (12.0-15.0)
[2025-04-05 02:02] LABS: Sodium 130 mmol/L (137-145)
[2025-04-05] MEDS: CENTRAL LINE FLUSH 10 ML IV PUSH ×3 (05:13→20:34)
[2025-04-05] MEDS: HEPARIN SODIUM LOCK FLUSH 500 UNITS/5 ML SYRINGE IV PUSH (05:26)
[2025-04-05 05:32] LABS: Hematocrit 30.6 % (37.0-47.0); Hemoglobin 10.1 g/dL (12.0-15.0); Mean Corpuscular HGB Conc 33.0 g/dl (32-36); Mean Corpuscular Hemoglobin 30.0 pg (26-34); Mean Corpuscular Volume 90.8 fl (80-100); Platelet Count Result 151 k/mm3 (150-375); Red Blood Count 3.37 M/mm3 (4.2-5.4); White Blood Count 11.9 K/mm3 (4.5-10.0)
[2025-04-05 05:51] LABS: Alanine Aminotransferase 52 U/L (6-35); Albumin Level 3.2 g/dL (3.5-5.1); Alkaline Phosphatase 90 U/L (38-126); Anion Gap 6 mmol/L (4-12); Aspartate Amino Transferase 64 U/L (14-36); Bilirubin,Total 0.4 mg/dL (0.2-1.3); Blood Urea Nitrogen 20 mg/dL (7-17); Calcium 8.9 mg/dL (8.4-10.2); Carbon Dioxide 19 mmol/L (22-30); Chloride 103 mmol/L (98-107); Estimated CRCL calculation 41 ml/min; Estimated Glomerular Filt Rate 50; Glucose 98 mg/dL (65-110); Magnesium 1.5 mg/dL (1.6-2.3); Potassium 3.4 mmol/L (3.4-5.0); Sodium 128 mmol/L (137-145); Total Protein 5.9 g/dL (6.3-8.2)
[2025-04-05 05:56] LABS: Anisocytosis 1+; Hypochromasia 1+; Ovalocytes 1+; Schistocytes None Seen
[2025-04-05] MEDS: FOLIC ACID 1 MG TABLET PO (08:36)
[2025-04-05] MEDS: LORATADINE 10 MG TABLET PO (08:36)
[2025-04-05] MEDS: MIDODRINE HCL 10 MG TABLET PO ×3 (08:36→16:20)
[2025-04-05] MEDS: ACETAMINOPHEN 325 MG TABLET 650 MG PO ×4 (08:36→23:49)
[2025-04-05] MEDS: ATORVASTATIN 40 MG TABLET PO (08:36)
[2025-04-05] MEDS: PANTOPRAZOLE SODIUM IV 40 MG VIAL IV PUSH ×2 (08:36→20:34)
[2025-04-05] MEDS: clonazePAM (*CRX) 0.5 MG TABLET PO ×3 (08:36→16:20)
[2025-04-05] MEDS: POTASSIUM/PHOSPHORUS/SODIUM 1.5 GM PACKET 1 PACKET PO ×2 (12:01→16:20)
[2025-04-05] MEDS: POTASSIUM CHLORIDE 20 MEQ ER TABLET 40 MEQ PO (12:02)
[2025-04-05] MEDS: KCL 20 MEQ/D5/0.9% SOD CHL 1,000 ML 50 ML IV CONT (12:02)
[2025-04-05] MEDS: MAGNESIUM SULF 2 GM/WATER 50ML 2 GM/50 ML BAG IVPB (12:02)
--- NOTE | 2025-04-05 14:21 | P.PNIM_ITS ---
Progress Note: A&P Assessment and Plan (1) Anemia: Code(s): D64.9 - Anemia, unspecified Status: Acute Assessment and Plan: Patient with Hgb 6.4 yesterday morning. No obvious acute blood loss Received PRBCs x2U. Serial HHs stable in the 9-10 range. Stool guaiac pending. Continue PPI therapy. Consider GI consult. (2) Hypotension: Code(s): I95.9 - Hypotension, unspecified Status: Acute Assessment and Plan: HoTN noted jessy other night and IVF bolus given. Albumin given. Midodrine started. BP soft but stable. lactic normal. PCT 0.5 [place] HoTN related to acute blood loss Monitor closely (3) Altered mental status: Code(s): R41.82 - Altered mental status, unspecified Status: Acute Assessment and Plan: Altered mental status/acute encephalopathy: CT head without contrast showed age indeterminate focus of left frontal subcortical ischemia, no hemorrhage CTA head and neck showed no ICA stenosis or other acute arterial abnormality. No large vessel arterial occlusion disease or other acute arterial abnormality of the head. MRI brain unremarkable; no evidence of CVA or masses B12, folate normal. Ammonia level <9. VitD 52. Cortisol 17. Echo with EF of 40-45% with regional wall motion abnormality, PFO Neurology consulted Patient is more awake and oriented. Probably AMS related to UTI and/or hypercalcemia and now has improved. Will follow. PT/OT/ST. Continue to orient (4) Cardiomyopathy: Code(s): I42.9 - Cardiomyopathy, unspecified Status: Acute Assessment and Plan: CMP; Patent foramen ovale Echo showing EF 40-45% with regional wall motion abnormality and PFO with R-->L shunt Cardiology consulted. LE venous doppler negative for DVT so unlikely paradoxical CVA. Metoprolol tartrate started. Maxide stopped and losartan added Due to HoTN and anemia, Plavix stopped. Verapamil, metoprolol and losartan held. CXR 02/01 showing developing interstitial pulm edema and/or pneumonitis right lung related to fluids, PRBC Continue tele monitoring. Continue statin. Lasix oral x1. Will need home O2 evaluation before discharge (5) Patent foramen ovale with right to left shunt: Code(s): Q21.12 - Patent foramen ovale Status: Acute Assessment and Plan: As above (6) Urinary tract infection: Code(s): N39.0 - Urinary tract infection, site not specified Status: Acute Assessment and Plan: UA noted. Bandemia was 15-17% but better at 6%. No BCx collected. Urine culture growing EColi sensitive to Rocephin WBC was going up but trended to 11K but unchanged today. Continue with ceftriaxone (7) Acute hyponatremia: Code(s): E87.1 - Hypo-osmolality and hyponatremia Status: Acute Assessment and Plan: Sodium dropped to 124. Urine studies c/w pre-renal Sodium up to 133 felt related to IV fluids -> 9mmol in 23 hours. Goal rate of correction would be 4-6mmol in 24 hours. She is malnurished and thus high risk for complications so will give DDAVP and started D5W. Serial Sodium levels improved to 128 today. D5W stopped last night. Allow her to re-hydrate herself. Follow. (8) Hypercalcemia of malignancy: Code(s): E83.52 - Hypercalcemia Status: Acute Assessment and Plan: Calcium level of 14.4 on admission. Likely secondary to malignancy and bony mets. CTA head and neck showing lytic lesion C2, C5. Lytic lesion right scapula with large soft tissue component. Received zoledronic acid, calcitonin, IV fluids in the ER Calcium levels have improved Follow (9) Hypokalemia: Code(s): E87.6 - Hypokalemia Status: Acute Assessment and Plan: HypoK+ with HypoMag Cortisol and TSH okay. Potassium and magnesium were replaved today. Follow. (10) Ovarian cancer: Code(s): C56.9 - Malignant neoplasm of unspecified ovary Status: Acute Assessment and Plan: Ovarian CA with hx of metastatic cancer. Patient with stage IV ovarian cancer with metastasis Patient has been treated with chemo, radiation in the past, currently on maintenance therapy with Keytruda. MRI brain unremarkable Patient follows up with Oncology at [facility] did accept patient but family declined transfer (11) COPD (chronic obstructive pulmonary disease): Qualifiers: COPD type: unspecified COPD Qualified Code(s): J44.9 - Chronic obstructive pulmonary disease, unspecified Code(s): J44.9 - Chronic obstructive pulmonary disease, unspecified Status: Acute Assessment and Plan: Stable. No wheezing. Currently on room air Continue Advair (12) Hypertension: Code(s): I10 - Essential (primary) hypertension Status: Acute Assessment and Plan: Patient's blood pressure was reviewed on 04/05 Blood pressure soft and her anti-HTN meds are still on hold. Will continue to monitor. Plan Code status: Full DVT prophylaxis: Heparin subQ Disposition: Pending improvement Subjective Date/time seen: 04/05/25 14:21 Interval history: 59yo female with HTN and metastatic ovarian CA here for AMS. Slept okay. no n/v. No CP or SOB. Up to the chair. No problems overnight. Exam Narrative: AF 97.6 111/68 96 18 97% ra Gen - NARD sititng up in chair Chest - decreased BS in the bases. Right upper chest port accessed CV - RRR with S1-S2. Tele showing no significant dysrhythmias Abd - soft, NT/ND with positive bowel sounds. Ext - no pedal edema Neuro - awake, alert and oriented x4. Psych- alert, interactive. Skin - Warm and dry. Objective Data Vital Signs Vital Signs: Vital Signs - 24 hr 04/04/25 16:00 04/04/25 16:00 04/04/25 16:00 Temperature 98.4 F Pulse Rate 103 H 95 Respiratory Rate 22 H Blood Pressure 104/53 L Pulse Oximetry 94 Oxygen Delivery Room Air 04/04/25 18:00 04/04/25 20:00 04/04/25 20:00 Temperature 98.7 F Pulse Rate 93 84 83 Respiratory Rate 18 Blood Pressure 95/53 L Pulse Oximetry 95 Oxygen Delivery 04/04/25 22:00 04/04/25 22:27 04/04/25 23:38 Temperature 97.9 F Pulse Rate 86 84 88 Respiratory Rate 18 18 Blood Pressure 106/51 L Pulse Oximetry 95 97 Oxygen Delivery Room Air 04/05/25 00:00 04/05/25 00:00 04/05/25 02:00 Temperature Pulse Rate 88 84 88 Respiratory Rate 18 Blood Pressure Pulse Oximetry 97 Oxygen Delivery Room Air 04/05/25 04:00 04/05/25 04:00 04/05/25 04:28 Temperature 98.5 F Pulse Rate 93 92 93 Respiratory Rate 18 18 Blood Pressure 129/71 Pulse Oximetry 96 96 Oxygen Delivery Room Air 04/05/25 05:30 04/05/25 08:00 04/05/25 11:55 Temperature 99.6 F 97.6 F Pulse Rate 95 94 104 H Respiratory Rate 20 18 Blood Pressure 115/64 105/65 Pulse Oximetry 98 96 Oxygen Delivery 04/05/25 11:56 04/05/25 11:56 Temperature 97.6 F Pulse Rate 104 H 96 Respiratory Rate 18 Blood Pressure 105/65 111/68 Pulse Oximetry 96 97 Oxygen Delivery Intake/Output Intake/Output: Intake & Output 04/02/25 04/03/25 04/04/25 04/05/25 23:59 23:59 23:59 23:59 Intake Total 490 1000 4326.0 915 Output Total 997 312 7984 500 Balance 90 500 3226.0 415 Meds/Results Medications: Active Medications Generic Name Dose Route Start Last Admin Trade Name Freq PRN Reason Stop Dose Admin Acetaminophen 650 mg 03/29/25 19:45 04/05/25 12:06 Acetaminophen 325 Mg Tablet PO 650 mg Q4H PRN Administration Mild Pain (1-3) or Fever Albuterol 2.5 mg 03/29/25 21:50 Albuterol Sulfate Neb 2.5 Mg/3 Ml Inh INHALATION Q4-6H PRN Shortness Of Breath Albuterol 2 puff 04/03/25 17:11 Albuterol Sulfate (*Sp) Aerosol 1 Puff INHALATION Q6HRT PRN Shortness Of Breath Or Wheezing Atorvastatin Calcium 40 mg 03/30/25 09:00 04/05/25 08:36 Atorvastatin 40 Mg Tablet PO 40 mg DAILY DANIELE Administration Clonazepam 0.5 mg 04/02/25 20:01 04/05/25 12:01 Clonazepam (*Crx) 0.5 Mg Tablet PO 0.5 mg TID PRN Administration anxiety Duloxetine HCl 30 mg 03/30/25 09:00 04/05/25 08:36 Duloxetine Hcl 30 Mg Capsule.Dr PO 30 mg DAILY DANIELE Administration Folic Acid 1 mg 03/30/25 09:00 04/05/25 08:36 Folic Acid 1 Mg Tablet PO 1 mg DAILY DANIELE Administration Heparin Sodium (Beef Lung) 50 units 03/30/25 09:00 04/05/25 08:36 Heparin Flush 50 Units/5 Ml Syringe IV PUSH 50 units QAM DANIELE Administration Heparin Sodium (Beef Lung) 50 units 03/29/25 23:50 Heparin Flush 50 Units/5 Ml Syringe IV PUSH PRN PRN after intermittent infusion Heparin Sodium (Beef Lung) 50 units 03/29/25 23:50 04/05/25 01:38 Heparin Flush 50 Units/5 Ml Syringe IV PUSH 50 units PRN PRN Administration after blood draws Heparin Sodium (Porcine) 500 units 03/29/25 23:50 04/05/25 05:26 Heparin Sodium Lock Flush 500 Units/5 Ml Syringe IV PUSH 500 units PRN PRN Administration see comments below Ceftriaxone Sodium 2 gm/ 100 mls @ 200 mls/hr 04/03/25 16:30 04/04/25 19:13 Sodium Chloride IVPB Infused DAILY@1600 DANIELE Infusion Dextrose 1,000 mls @ 50 mls/hr 04/04/25 10:20 04/05/25 07:31 Dextrose 5% 1,000 Ml IV CONT Infused .Q20H DANIELE Infusion Potassium Chloride/Dextrose/Sod Cl 1,000 mls @ 50 mls/hr 04/05/25 10:00 04/05/25 12:02 Kcl 20 Meq/D5/0.9% Sod Chl IV CONT 50 mls/hr .Q20H DANIELE Administration Loratadine 10 mg 03/30/25 09:00 04/05/25 08:36 Loratadine 10 Mg Tablet PO 10 mg QAM DANIELE Administration Losartan Potassium 25 mg 04/02/25 09:00 04/03/25 09:04 Losartan Potassium 25 Mg Tablet PO 25 mg On Hold: 04/04/25 08:20 DAILY DANIELE Administration Metoprolol Tartrate 12.5 mg 03/31/25 21:00 04/03/25 21:24 Metoprolol Tartrate 12.5 Mg Tablet PO Not Given On Hold: 04/04/25 08:20 Q12HR DANIELE Midodrine 10 mg 04/03/25 23:20 04/05/25 12:01 Midodrine Hcl 10 Mg Tablet PO 10 mg TID DANIELE Administration Montelukast Sodium 10 mg 03/29/25 21:00 04/04/25 22:38 Montelukast Sodium 10 Mg Tablet PO 10 mg HS DANIELE Administration Pantoprazole Sodium 40 mg 04/04/25 09:00 04/05/25 08:36 Pantoprazole Sodium Iv 40 Mg Vial IV PUSH 40 mg Q12HR DANIELE Administration Polyethylene Glycol 17 gm 04/02/25 09:00 04/05/25 08:38 Polyethylene Glycol 3350 17 Gm Powd.Pack PO Not Given QAM DANIELE Potassium Phos/Sodium Phos 1 packet 04/05/25 09:25 04/05/25 12:01 Potassium/Phosphorus/Sodium 1.5 Gm Packet PO 04/05/25 15:26 1 packet Q6H DANIELE Administration Fluticasone/Salmeterol 2 puff 03/29/25 20:00 04/04/25 07:34 Fluticasone/Salmeterol 45-21 Mcg Inhaler 1 Puff INHALATION 2 puff On Hold: 04/04/25 10:22 Q12HRT DANIELE Administration Senna 17.2 mg 03/30/25 09:00 04/02/25 08:36 Sennosides 8.6 Mg Tablet PO 17.2 mg On Hold: 04/02/25 08:45 BID DANIELE Administration Sodium Chloride 10 ml 03/30/25 06:00 04/05/25 05:13 Central Line Flush IV PUSH 10 ml Q8HR DANIELE Administration Verapamil HCl 180 mg 03/30/25 08:00 04/04/25 08:38 Verapamil Hcl 180 Mg Tablet Er PO Not Given On Hold: 04/04/25 08:20 DAILY@0800 [facility] Radiology Results: ITS Impressions Head CT 03/28/25 17:39 Impression: Age-indeterminate focus of left frontal subcortical ischemia. No hemorrhage. MRI recommended Head/Neck CTA 03/29/25 08:51 IMPRESSION: CTA NECK: 1. No ICA stenosis or other acute arterial abnormality. 2. Lytic bony metastatic disease C2, C5. 3. Lytic bony metastatic disease right scapula with large associated soft tissue component. CTA HEAD: 1. No large vessel arterial occlusive disease or other acute arterial abnormality. Brain MRI 03/30/25 15:18 IMPRESSION: 1. Scattered ossific white matter T2 hyperintensity consistent with chronic small vessel ischemic disease. No acute intracranial process. Venous Doppler Study 03/31/25 17:18 IMPRESSION: 1: No lower extremity deep venous thrombosis. Chest X-Ray 04/04/25 11:53 IMPRESSION: 1. Developing interstitial pulmonary edema and/or pneumonitis right lung. 2. Early airspace disease lung base not excluded. Labs Labs: Laboratory Results - last 24 hr 04/04/25 04/04/25 04/05/25 14:03 18:27 01:45 WBC RBC Hgb 10.0 L 9.7 L Hct 30.4 L 29.3 L MCV MCH MCHC RDW Plt Count MPV Immature Gran % (Auto) Neut % (Auto) Lymph % (Auto) [place] % (Auto) Eos % (Auto) Baso % (Auto) Lymph # (Auto) [place] # (Auto) Eos # (Auto) Baso # (Auto) Abs Immat Gran (auto) Absolute Neuts (auto) Absolute Nucleated RBC Band Neutrophils % Nucleated RBC % Platelet Estimate Hypochromasia Anisocytosis Ovalocytes Schistocytes Sodium 135 L 132 L 130 L Potassium Chloride Carbon Dioxide Anion Gap BUN Creatinine Estim Creat Clear Calc Estimated GFR Glucose Lactic Acid 1.7 Calcium Phosphorus Magnesium Total Bilirubin AST ALT Alkaline Phosphatase Total Protein Albumin Procalcitonin 0.5 04/05/25 05:19 WBC 11.9 H RBC 3.37 L Hgb 10.1 L Hct 30.6 L MCV 90.8 MCH 30.0 MCHC 33.0 RDW 17.7 H Plt Count 151 MPV 9.7 Immature Gran % (Auto) Not Reportable Neut % (Auto) Not Reportable Lymph % (Auto) Not Reportable [place] % (Auto) Not Reportable Eos % (Auto) Not Reportable Baso % (Auto) Not Reportable Lymph # (Auto) Not Reportable [place] # (Auto) Not Reportable Eos # (Auto) Not Reportable Baso # (Auto) Not Reportable Abs Immat Gran (auto) Not Reportable Absolute Neuts (auto) Not Reportable Absolute Nucleated RBC Not Reportable Band Neutrophils % Not Reportable Nucleated RBC % Not Reportable Platelet Estimate Adequate Hypochromasia 1+ Anisocytosis 1+ Ovalocytes 1+ Schistocytes None seen Sodium 128 L Potassium 3.4 Chloride 103 Carbon Dioxide 19 L Anion Gap 6 BUN 20 H Creatinine 1.10 H Estim Creat Clear Calc 41 Estimated GFR 50 L Glucose 98 Lactic Acid Calcium 8.9 Phosphorus 1.9 L Magnesium 1.5 L Total Bilirubin 0.4 AST 64 H ALT 52 H Alkaline Phosphatase 90 Total Protein 5.9 L Albumin 3.2 L Procalcitonin
[2025-04-05] MEDS: cefTRIAXone 2 GM in SODIUM CHLORIDE 0.9% IV 100 ML 200 ML IVPB (16:19)
--- NOTE | 2025-04-05 18:07 | WPDPN ---
Progress Note: A&P Assessment and Plan (1) Altered mental status: Code(s): R41.82 - Altered mental status, unspecified Status: Acute Assessment and Plan: multifactorial but IMPROVED STATUS (2) Patent foramen ovale with right to left shunt: Code(s): Q21.12 - Patent foramen ovale Status: Acute Assessment and Plan: n/a (3) Cardiomyopathy: Code(s): I42.9 - Cardiomyopathy, unspecified Status: Acute Assessment and Plan: may worsen fatigue and limb movment and BP response (4) Myopathy: Code(s): G72.9 - Myopathy, unspecified Status: Acute Assessment and Plan: weakness due to immobility and cancer sequelae activities as tolerated DME (5) Hypertension: Code(s): I10 - Essential (primary) hypertension Status: Acute Assessment and Plan: monitor for hypotension (6) Lumbosacral plexopathy: Code(s): G54.1 - Lumbosacral plexus disorders Status: Acute Assessment and Plan: likely from radiation of pelvis--DME therapies and family assist (7) Immobility: Code(s): Z74.09 - Other reduced mobility Status: Acute Assessment and Plan: limited mobility and exercise tolerance with prolonged immobility (8) Malaise and fatigue: Code(s): R53.81 - Other malaise; R53.83 - Other fatigue Status: Acute Assessment and Plan: multifactorial with cancer history treatments and immobility exercise as tolerated energy conservation Plan up daily to improve endurance respiration and alertness custom chair and cushion evaluation review sleep and appetite aides IS and PEP PT OT for functional mobility training MRADL energy conservation CM to address follow up options supportive care ONC follow up needed Ancticipate rehab stay if medically stable and able to tolerate therapies Subjective Date/time seen: 04/06/25 00:07 Interval history: Diagnoses: 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 Pete Murray collection systems modeler Neuro Rajani Edmond. Cardiology Zuleyka Nolan. PMR Mariel Flores. Consult date: 04/02/25 I saw this patient [id number] on 04/02/25 and on follow today REASON FOR CONSULT: WEAKNESS WITH WORSENED FUNCTION Prior to this admission, Iliana had been deconditioning over a few weeks, going from mostly independent using a cane to needing maxA from family to get to the bathroom. Left knee neto, and she is slowed and confused and drowsy.. Poor oral intake noted Patients current decrease in function is multifactorial given ovarian vulvar cancer and treatment as well as secondary effects of treatment. RESPONSE notably cancer/critical illness myopathy presents with weakness proximally LLE weakness likely due to plexopathy neuropathy also affecting DISTAL proprioception--possibly B12 related as well and chemo IMMOBILITY likely causing worsened fatigue and weakness slowed responses with decreased activity possible meds possible sleep wake impairment and hypercalcemia cachexia poor appetite due to med effects will review further PLAN monitor labs sleep wake up daily with energy conservation HPI: Iliana Montero is a 59 year old female with history of carcinoma of the ovary/vulvular cancer diagnosed in March 2024 according to her daughter. She is considered to be in stage IV. 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 ca125 was 21.6 treatment taxol carboplatin abastin keytruda SQUAMOUS CELL CARCINOMA OF THE VULVA STATUS POST neoadjuvant systemic therapy with a mixed response PET SCAN DECEMBER 2024 with PARTIAL RESPONSE mets adrenal right node hilar labs TSH 2.1971 Hg 8.6 no calcium noted noted neuropathy fatigue sp pelvic radiation with 5000 cGY in 25 fractions and boost to groin and vulvar with 6200 6400 in 32 fractions ending 11/27/2024 AT [facility] Cardiology-New cardiomyopathy with LVEF of 40% and regional wall motion abnormalities with hypokinesis of inferior, inferoseptal and anteroseptal lopez; no chest pain or shortness of breath -PFO with yneri-eq-pyog shunt; on room air at rest -Electrolyte abnormalities: Hyponatremia, hypercalcemia, hypokalemia -Stage IV ovarian cancer with bony mets -Hypertension Neurology-no new stroke Encephalopathy UTI Hypercalcemia electrolyte abnormalities interval history making gains in endurance sitting up to eat eating salad today mental status clearing mood stable Review of Systems Review of Systems: fatigued slowed cognitive processing and executive function improving weakness with knee buckling decreased appetite tolerating supplements All systems reviewed & are unremarkable except as noted in HPI and below Exam Narrative: alert friendly female up eating EXTREMITIES WITH DECREASED MUSCLE MASS AND ATROPHY Const: Other: improved responses HENMT: Other: normocephalic face symmetrical dental caries tongue midline voice intelligible Eyes: Other: good eye tracking with improved focus no apparent visual field changes or deficits anicteric sclera Neck: Other: no lymphadenopathy Chest: Other: monitors present Resp: Other: lungs with decreased breath sounds improved aeration Cardio: Other: RR without murmur GI: Other: Soft rounded NT to palpation active bowel sounds : Other: DEFER FULL EXAM wearing depends groin adeopathy noted by onc R groin Back/Spine/Pelvis: Other: kyphosis equal rhomboid function back with loss of lordosis Skin: Other: defer Neuro: Other: alert female appropriate no asterixis no clonus BUE function BUE with fair fine motor control BLE h LLE hip flexion poor 0-1 knee extension 1/5 ADF 0/5 no EHL PROM not to neutral poor proprioception great toe RLE hip flexion 2/5 knee extension 2/5 ADF 1/5 no EHL PROM to neutral MSR not elicited BLE no clonus no hoffmans no asterixis Extrem: Other: loss of ADF to neutral Psych: Other: appropriate speech normal affect Objective Data Vital Signs Vital Signs: Vital Signs - 24 hr 04/05/25 02:00 04/05/25 04:00 04/05/25 04:00 Temperature 98.5 F Pulse Rate 88 93 92 Respiratory Rate 18 Blood Pressure 129/71 Pulse Oximetry 96 Oxygen Delivery 04/05/25 04:28 04/05/25 05:30 04/05/25 08:00 Temperature 99.6 F Pulse Rate 93 95 94 Respiratory Rate 18 20 Blood Pressure 115/64 Pulse Oximetry 96 98 Oxygen Delivery Room Air 04/05/25 08:00 04/05/25 08:00 04/05/25 10:00 Temperature Pulse Rate 98 96 Respiratory Rate Blood Pressure Pulse Oximetry 97 Oxygen Delivery Room Air 04/05/25 11:55 04/05/25 11:56 04/05/25 11:56 Temperature 97.6 F 97.6 F Pulse Rate 104 H 104 H 96 Respiratory Rate 18 18 Blood Pressure 105/65 105/65 111/68 Pulse Oximetry 96 96 97 Oxygen Delivery 04/05/25 12:00 04/05/25 12:00 04/05/25 14:00 Temperature Pulse Rate 101 H 83 Respiratory Rate Blood Pressure Pulse Oximetry 97 Oxygen Delivery Room Air 04/05/25 16:00 04/05/25 16:00 04/05/25 16:56 Temperature 97.3 F L Pulse Rate 78 79 Respiratory Rate 18 Blood Pressure 109/66 Pulse Oximetry 97 97 Oxygen Delivery Room Air 04/05/25 18:00 04/05/25 20:00 04/05/25 20:00 Temperature Pulse Rate 74 74 Respiratory Rate Blood Pressure Pulse Oximetry 94 Oxygen Delivery Room Air 04/05/25 20:00 04/05/25 22:00 Temperature 98.4 F Pulse Rate 69 70 Respiratory Rate 16 Blood Pressure 117/59 L Pulse Oximetry 94 Oxygen Delivery Intake/Output Intake/Output: Intake & Output 04/03/25 04/04/25 04/05/25 04/06/25 23:59 23:59 23:59 23:59 Intake Total 1000 / 1000 4326.0 / 4326.0 1385 / 1385 Output Total 500 / 500 1100 / 1100 950 / 950 Balance 500 / 500 3226.0 / 3226.0 435 / 435 Meds/Results Medications: Active Medications Generic Name Dose Route Start Last Admin Trade Name Freq PRN Reason Stop Dose Admin Acetaminophen 650 mg 03/29/25 19:45 04/05/25 23:49 Acetaminophen 325 Mg Tablet PO 650 mg Q4H PRN Administration Mild Pain (1-3) or Fever Albuterol 2.5 mg 03/29/25 21:50 Albuterol Sulfate Neb 2.5 Mg/3 Ml Inh INHALATION Q4-6H PRN Shortness Of Breath Albuterol 2 puff 04/03/25 17:11 Albuterol Sulfate (*Sp) Aerosol 1 Puff INHALATION Q6HRT PRN Shortness Of Breath Or Wheezing Atorvastatin Calcium 40 mg 03/30/25 09:00 04/05/25 08:36 Atorvastatin 40 Mg Tablet PO 40 mg DAILY DANIELE Administration Clonazepam 0.5 mg 04/02/25 20:01 04/05/25 16:20 Clonazepam (*Crx) 0.5 Mg Tablet PO 0.5 mg TID PRN Administration anxiety Duloxetine HCl 30 mg 03/30/25 09:00 04/05/25 08:36 Duloxetine Hcl 30 Mg Capsule.Dr PO 30 mg DAILY DANIELE Administration Folic Acid 1 mg 03/30/25 09:00 04/05/25 08:36 Folic Acid 1 Mg Tablet PO 1 mg DAILY DANIELE Administration Heparin Sodium (Beef Lung) 50 units 03/30/25 09:00 04/05/25 08:36 Heparin Flush 50 Units/5 Ml Syringe IV PUSH 50 units QAM DANIELE Administration Heparin Sodium (Beef Lung) 50 units 03/29/25 23:50 Heparin Flush 50 Units/5 Ml Syringe IV PUSH PRN PRN after intermittent infusion Heparin Sodium (Beef Lung) 50 units 03/29/25 23:50 04/05/25 01:38 Heparin Flush 50 Units/5 Ml Syringe IV PUSH 50 units PRN PRN Administration after blood draws Heparin Sodium (Porcine) 500 units 03/29/25 23:50 04/05/25 05:26 Heparin Sodium Lock Flush 500 Units/5 Ml Syringe IV PUSH 500 units PRN PRN Administration see comments below Ceftriaxone Sodium 2 gm/ 100 mls @ 200 mls/hr 04/03/25 16:30 04/05/25 16:49 Sodium Chloride IVPB Infused DAILY@1600 DANIELE Infusion Dextrose 1,000 mls @ 50 mls/hr 04/04/25 10:20 04/05/25 07:31 Dextrose 5% 1,000 Ml IV CONT Infused .Q20H DANIELE Infusion Potassium Chloride/Dextrose/Sod Cl 1,000 mls @ 50 mls/hr 04/05/25 10:00 04/05/25 12:02 Kcl 20 Meq/D5/0.9% Sod Chl IV CONT 50 mls/hr .Q20H DANIELE Administration Loratadine 10 mg 03/30/25 09:00 04/05/25 08:36 Loratadine 10 Mg Tablet PO 10 mg QAM DANIELE Administration Losartan Potassium 25 mg 04/02/25 09:00 04/03/25 09:04 Losartan Potassium 25 Mg Tablet PO 25 mg On Hold: 04/04/25 08:20 DAILY DANIELE Administration Metoprolol Tartrate 12.5 mg 03/31/25 21:00 04/03/25 21:24 Metoprolol Tartrate 12.5 Mg Tablet PO Not Given On Hold: 04/04/25 08:20 Q12HR DANIELE Midodrine 10 mg 04/03/25 23:20 04/05/25 16:20 Midodrine Hcl 10 Mg Tablet PO 10 mg TID DANIELE Administration Montelukast Sodium 10 mg 03/29/25 21:00 04/05/25 20:34 Montelukast Sodium 10 Mg Tablet PO 10 mg HS DANIELE Administration Pantoprazole Sodium 40 mg 04/04/25 09:00 04/05/25 20:34 Pantoprazole Sodium Iv 40 Mg Vial IV PUSH 40 mg Q12HR DANIELE Administration Polyethylene Glycol 17 gm 04/02/25 09:00 04/05/25 08:38 Polyethylene Glycol 3350 17 Gm Powd.Pack PO Not Given QAM DANIELE Fluticasone/Salmeterol 2 puff 03/29/25 20:00 04/05/25 22:18 Fluticasone/Salmeterol 45-21 Mcg Inhaler 1 Puff INHALATION Not Given Q12HRT DANIELE Senna 17.2 mg 03/30/25 09:00 04/02/25 08:36 Sennosides 8.6 Mg Tablet PO 17.2 mg On Hold: 04/02/25 08:45 BID DANIELE Administration Sodium Chloride 10 ml 03/30/25 06:00 04/05/25 20:34 Central Line Flush IV PUSH 10 ml Q8HR DANIELE Administration Verapamil HCl 180 mg 03/30/25 08:00 04/04/25 08:38 Verapamil Hcl 180 Mg Tablet Er PO Not Given On Hold: 04/04/25 08:20 DAILY@0800 [facility] Radiology Results: ITS Impressions Head CT 03/28/25 17:39 Impression: Age-indeterminate focus of left frontal subcortical ischemia. No hemorrhage. MRI recommended Head/Neck CTA 03/29/25 08:51 IMPRESSION: CTA NECK: 1. No ICA stenosis or other acute arterial abnormality. 2. Lytic bony metastatic disease C2, C5. 3. Lytic bony metastatic disease right scapula with large associated soft tissue component. CTA HEAD: 1. No large vessel arterial occlusive disease or other acute arterial abnormality. Brain MRI 03/30/25 15:18 IMPRESSION: 1. Scattered ossific white matter T2 hyperintensity consistent with chronic small vessel ischemic disease. No acute intracranial process. Venous Doppler Study 03/31/25 17:18 IMPRESSION: 1: No lower extremity deep venous thrombosis. Chest X-Ray 04/04/25 11:53 IMPRESSION: 1. Developing interstitial pulmonary edema and/or pneumonitis right lung. 2. Early airspace disease lung base not excluded. Labs Labs: Laboratory Results - last 24 hr 04/05/25 04/05/25 01:45 05:19 WBC 11.9 H RBC 3.37 L Hgb 9.7 L 10.1 L Hct 29.3 L 30.6 L MCV 90.8 MCH 30.0 MCHC 33.0 RDW 17.7 H Plt Count 151 MPV 9.7 Immature Gran % (Auto) Not Reportable Neut % (Auto) Not Reportable Lymph % (Auto) Not Reportable [place] % (Auto) Not Reportable Eos % (Auto) Not Reportable Baso % (Auto) Not Reportable Lymph # (Auto) Not Reportable [place] # (Auto) Not Reportable Eos # (Auto) Not Reportable Baso # (Auto) Not Reportable Abs Immat Gran (auto) Not Reportable Absolute Neuts (auto) Not Reportable Absolute Nucleated RBC Not Reportable Band Neutrophils % Not Reportable Nucleated RBC % Not Reportable Platelet Estimate Adequate Hypochromasia 1+ Anisocytosis 1+ Ovalocytes 1+ Schistocytes None seen Sodium 130 L 128 L Potassium 3.4 Chloride 103 Carbon Dioxide 19 L Anion Gap 6 BUN 20 H Creatinine 1.10 H Estim Creat Clear Calc 41 Estimated GFR 50 L Glucose 98 Calcium 8.9 Phosphorus 1.9 L Magnesium 1.5 L Total Bilirubin 0.4 AST 64 H ALT 52 H Alkaline Phosphatase 90 Total Protein 5.9 L Albumin 3.2 L
[2025-04-05] MEDS: MONTELUKAST SODIUM 10 MG TABLET PO (20:34)
[2025-04-06] VITALS (20 sets, daily range): BP systolic 106–126; BP diastolic 51–75; PULSE 70–123; RESP 14–20; TEMP 36.3–37; O2SAT 96–99
[2025-04-06] MEDS: MENTHOL 10% / METHYL SALICYLATE 15% 57 GM TUBE 1 APPLIC TOPICAL ×2 (02:24→12:00)
[2025-04-06] MEDS: ACETAMINOPHEN 325 MG TABLET 650 MG PO ×3 (04:07→17:44)
[2025-04-06] MEDS: KCL 20 MEQ/D5/0.9% SOD CHL 1,000 ML 50 ML IV CONT (04:08)
[2025-04-06] MEDS: CENTRAL LINE FLUSH 10 ML IV PUSH ×3 (04:14→20:58)
[2025-04-06 04:19] LABS: Hematocrit 31.6 % (37.0-47.0); Hemoglobin 10.1 g/dL (12.0-15.0); Immature Granulocyte Percent A 7.9 % (0-0.5); Lymphocytes Absolute Auto 0.50 K/mm3 (0.9-3.2); Mean Corpuscular HGB Conc 32.0 g/dl (32-36); Mean Corpuscular Hemoglobin 29.6 pg (26-34); Mean Corpuscular Volume 92.7 fl (80-100); Nucleated Red Blood Cells Absolute Auto 0.000 K/mm3 (0.0-0.012); Nucleated Red Blood Cells Perc 0.0 % (0.0-0.2); Platelet Count Result 160 k/mm3 (150-375); Red Blood Count 3.41 M/mm3 (4.2-5.4); White Blood Count 11.9 K/mm3 (4.5-10.0)
[2025-04-06 04:35] LABS: Alanine Aminotransferase 44 U/L (6-35); Albumin Level 3.1 g/dL (3.5-5.1); Alkaline Phosphatase 95 U/L (38-126); Anion Gap 4 mmol/L (4-12); Aspartate Amino Transferase 40 U/L (14-36); Bilirubin,Total 0.4 mg/dL (0.2-1.3); Blood Urea Nitrogen 22 mg/dL (7-17); Calcium 8.8 mg/dL (8.4-10.2); Carbon Dioxide 20 mmol/L (22-30); Chloride 105 mmol/L (98-107); Estimated CRCL calculation 42 ml/min; Estimated Glomerular Filt Rate 52; Glucose 91 mg/dL (65-110); Magnesium 2.1 mg/dL (1.6-2.3); Potassium 4.5 mmol/L (3.4-5.0); Sodium 129 mmol/L (137-145); Total Protein 5.9 g/dL (6.3-8.2)
[2025-04-06 05:08] LABS: Anisocytosis 1+; Schistocytes None Seen; Spherocytes 1+
[2025-04-06] MEDS: FLUTICASONE/SALMETEROL 45-21 MCG INHALER 1 PUFF 2 PUFF INHALATION ×2 (08:41→21:57)
[2025-04-06] MEDS: MIDODRINE HCL 10 MG TABLET PO ×3 (08:47→17:46)
[2025-04-06] MEDS: FOLIC ACID 1 MG TABLET PO (08:51)
[2025-04-06] MEDS: ATORVASTATIN 40 MG TABLET PO (08:51)
[2025-04-06] MEDS: PANTOPRAZOLE SODIUM IV 40 MG VIAL IV PUSH ×2 (08:52→20:58)
[2025-04-06] MEDS: LORATADINE 10 MG TABLET PO (08:52)
[2025-04-06] MEDS: clonazePAM (*CRX) 0.5 MG TABLET PO ×2 (08:54→21:12)
[2025-04-06] MEDS: POTASSIUM/PHOSPHORUS/SODIUM 1.5 GM PACKET 1 PACKET PO ×2 (09:07→15:48)
--- NOTE | 2025-04-06 12:45 | PCNFU ---
Nutrition Follow-Up Complete: Inadequate oral intake related to altered mental status as evidenced by report of poor intake 2 weeks Goal:PO intake >50 Pt not meeting goal, continue with same goal Pt current nutrition is regular, Ensure +HP shakes BID. Nutrition recommendation: Add nutrition ice cream cups Last recorded weight is 61.6 kg. Bowel Motility: +BM 04/02 Labs Reviewed: HCT:31.6, Alb:3.1, NA:129, GFR:52, BUN:22, Cr:1.08 Meds Noted: folic acid, senna, miralax Skin: WNL Additional Notes: Pt continues on a regular diet, intake poor overall, encouragement and assistance for meals. Will add nutrition ice cream cups Monitoring intakes, weights, labs, supplement tolerance, feeding ability, plan of care Follow up in 5 days
--- NOTE | 2025-04-06 12:54 | PM.IMPN ---
Progress Note: A&P Assessment and Plan (1) Anemia: Code(s): D64.9 - Anemia, unspecified Status: Acute Assessment and Plan: Patient with Hgb 6.4 on the morning of 04/04. No obvious acute blood loss; consider lab error? Received PRBCs x2U. Serial HHs stable in the 9-10 range. Stool guaiac pending. Continue PPI therapy. Consider GI consult. (2) Hypotension: Code(s): I95.9 - Hypotension, unspecified Status: Acute Assessment and Plan: HoTN noted the other night and IVF bolus and Albumin given. Midodrine started. BP soft but stable. lactic normal. PCT 0.5 [place] HoTN related to acute blood loss? BP better. Monitor closely (3) Altered mental status: Code(s): R41.82 - Altered mental status, unspecified Status: Acute Assessment and Plan: Altered mental status/acute encephalopathy: CT head without contrast showed age indeterminate focus of left frontal subcortical ischemia, no hemorrhage CTA head and neck showed no ICA stenosis or other acute arterial abnormality. No large vessel arterial occlusion disease or other acute arterial abnormality of the head. MRI brain unremarkable; no evidence of CVA or masses B12, folate normal. Ammonia level <9. VitD 52. Cortisol 17. Echo with EF of 40-45% with regional wall motion abnormality, PFO Neurology consulted Patient is more awake and oriented. Probably AMS related to UTI and/or hypercalcemia and now has improved. Will follow. PT/OT/ST. Continue to orient (4) Cardiomyopathy: Code(s): I42.9 - Cardiomyopathy, unspecified Status: Acute Assessment and Plan: CMP; Patent foramen ovale Echo showing EF 40-45% with regional wall motion abnormality and PFO with R-->L shunt Cardiology consulted. LE venous doppler negative for DVT so unlikely paradoxical CVA. Metoprolol tartrate started. Maxide stopped and losartan added Due to HoTN and anemia, Plavix stopped. Verapamil, metoprolol and losartan held. CXR 02/01 showing developing interstitial pulm edema and/or pneumonitis right lung related to fluids adn PRBCs No Lasix given due to soft BP BP better so will try to add back metoprolol Continue tele monitoring. Continue statin. Will need home O2 evaluation before discharge (5) Patent foramen ovale with right to left shunt: Code(s): Q21.12 - Patent foramen ovale Status: Acute Assessment and Plan: As above (6) Urinary tract infection: Code(s): N39.0 - Urinary tract infection, site not specified Status: Acute Assessment and Plan: UA noted. Bandemia was 15-17% but better at 6%. No BCx collected. Urine culture growing EColi sensitive to Rocephin WBC was going up but trended to 11K but unchanged today. Complete ceftriaxone today (7) Acute hyponatremia: Code(s): E87.1 - Hypo-osmolality and hyponatremia Status: Acute Assessment and Plan: Sodium dropped to 124. Urine studies c/w pre-renal Sodium up to 133 felt related to IV fluids -> 9mmol in 23 hours. Goal rate of correction would be 4-6mmol in 24 hours. She is malnurished and thus high risk for complications so will give DDAVP and started D5W. Serial Sodium levels improved to 128 so D5W stopped Allow her to re-hydrate herself. Follow. (8) Hypercalcemia of malignancy: Code(s): E83.52 - Hypercalcemia Status: Acute Assessment and Plan: Calcium level of 14.4 on admission. Likely secondary to malignancy and bony mets. CTA head and neck showing lytic lesion C2, C5. Lytic lesion right scapula with large soft tissue component. Received zoledronic acid, calcitonin, IV fluids in the ER Calcium levels have improved Follow (9) Hypokalemia: Code(s): E87.6 - Hypokalemia Status: Acute Assessment and Plan: HypoK+ with HypoMag Cortisol and TSH okay. Potassium and magnesium were replaved today. Follow. (10) Ovarian cancer: Code(s): C56.9 - Malignant neoplasm of unspecified ovary Status: Acute Assessment and Plan: Ovarian CA with hx of metastatic cancer. Patient with stage IV ovarian cancer with metastasis Patient has been treated with chemo, radiation in the past, currently on maintenance therapy with Keytruda. MRI brain unremarkable Patient follows up with Oncology at [facility] did accept patient but family declined transfer (11) COPD (chronic obstructive pulmonary disease): Qualifiers: COPD type: unspecified COPD Qualified Code(s): J44.9 - Chronic obstructive pulmonary disease, unspecified Code(s): J44.9 - Chronic obstructive pulmonary disease, unspecified Status: Acute Assessment and Plan: Stable. No wheezing. Currently on room air Continue Advair (12) Hypertension: Code(s): I10 - Essential (primary) hypertension Status: Acute Assessment and Plan: Patient's blood pressure was reviewed on 04/06 Blood pressure soft and her anti-HTN meds were held BP better so will try to add back metoprolol Will continue to monitor. (13) Lice: Code(s): B85.2 - Pediculosis, unspecified Status: Acute Assessment and Plan: Noted on admission and treated wit Nix. Plan Code status: Full DVT prophylaxis: Heparin subQ Subjective Date/time seen: 04/06/25 12:54 Interval history: 59yo female with HTN and metastatic ovarian CA here for AMS. Feeling well. No CP or SOB. Eating better. Still with dry cough Exam Narrative: AF 97.7 109/67 118 20 98% ra Gen - NARD Chest - distant, clear BS. Right upper chest port accessed CV - RRR with S1-S2. Tele showing occasional sinus tachycardia Abd - soft, NT/ND with positive bowel sounds. Ext - no pedal edema Psych- alert, pleasant and cooperative Skin - Warm and dry. Objective Data Vital Signs Vital Signs: Vital Signs - 24 hr 04/05/25 14:00 04/05/25 16:00 04/05/25 16:00 Temperature Pulse Rate 83 78 Respiratory Rate Blood Pressure Pulse Oximetry 97 Oxygen Delivery Room Air 04/05/25 16:56 04/05/25 18:00 04/05/25 20:00 Temperature 97.3 F L Pulse Rate 79 74 74 Respiratory Rate 18 Blood Pressure 109/66 Pulse Oximetry 97 Oxygen Delivery 04/05/25 20:00 04/05/25 20:00 04/05/25 22:00 Temperature 98.4 F Pulse Rate 69 70 Respiratory Rate 16 Blood Pressure 117/59 L Pulse Oximetry 94 94 Oxygen Delivery Room Air 04/06/25 00:00 04/06/25 00:00 04/06/25 00:00 Temperature 98.5 F Pulse Rate 72 70 Respiratory Rate 16 Blood Pressure 126/60 Pulse Oximetry 97 97 Oxygen Delivery Room Air 04/06/25 02:00 04/06/25 04:00 04/06/25 04:00 Temperature Pulse Rate 88 86 Respiratory Rate Blood Pressure Pulse Oximetry 97 Oxygen Delivery Room Air 04/06/25 04:00 04/06/25 06:00 04/06/25 08:00 Temperature 98.2 F 97.3 F L Pulse Rate 86 89 94 Respiratory Rate 14 18 Blood Pressure 121/64 116/51 L Pulse Oximetry 96 99 Oxygen Delivery 04/06/25 08:00 04/06/25 08:30 04/06/25 08:43 Temperature Pulse Rate 95 102 H Respiratory Rate 16 Blood Pressure Pulse Oximetry 99 Oxygen Delivery Room Air 04/06/25 12:00 04/06/25 12:39 04/06/25 12:39 Temperature 97.8 F 97.7 F Pulse Rate 117 H 117 H 123 H Respiratory Rate 20 20 Blood Pressure 106/66 106/66 118/75 Pulse Oximetry 98 98 Oxygen Delivery 04/06/25 12:40 Temperature Pulse Rate 118 H Respiratory Rate Blood Pressure 109/67 Pulse Oximetry Oxygen Delivery Intake/Output Intake/Output: Intake & Output 04/03/25 04/04/25 04/05/25 04/06/25 23:59 23:59 23:59 23:59 Intake Total 1000 4326.0 1385 1625 Output Total 500 1100 950 200 Balance 500 3226.0 435 1425 Meds/Results Medications: Active Medications Generic Name Dose Route Start Last Admin Trade Name Freq PRN Reason Stop Dose Admin Acetaminophen 650 mg 03/29/25 19:45 04/06/25 08:48 Acetaminophen 325 Mg Tablet PO 650 mg Q4H PRN Administration Mild Pain (1-3) or Fever Albuterol 2.5 mg 03/29/25 21:50 Albuterol Sulfate Neb 2.5 Mg/3 Ml Inh INHALATION Q4-6H PRN Shortness Of Breath Albuterol 2 puff 04/03/25 17:11 Albuterol Sulfate (*Sp) Aerosol 1 Puff INHALATION Q6HRT PRN Shortness Of Breath Or Wheezing Atorvastatin Calcium 40 mg 03/30/25 09:00 04/06/25 08:51 Atorvastatin 40 Mg Tablet PO 40 mg DAILY DANIELE Administration Clonazepam 0.5 mg 04/02/25 20:01 04/06/25 08:54 Clonazepam (*Crx) 0.5 Mg Tablet PO 0.5 mg TID PRN Administration anxiety Duloxetine HCl 30 mg 03/30/25 09:00 04/06/25 08:48 Duloxetine Hcl 30 Mg Capsule.Dr PO 30 mg DAILY DANIELE Administration Folic Acid 1 mg 03/30/25 09:00 04/06/25 08:51 Folic Acid 1 Mg Tablet PO 1 mg DAILY DANIELE Administration Heparin Sodium (Beef Lung) 50 units 03/30/25 09:00 04/06/25 08:55 Heparin Flush 50 Units/5 Ml Syringe IV PUSH Not Given QAM DANIELE Heparin Sodium (Beef Lung) 50 units 03/29/25 23:50 Heparin Flush 50 Units/5 Ml Syringe IV PUSH PRN PRN after intermittent infusion Heparin Sodium (Beef Lung) 50 units 03/29/25 23:50 04/05/25 01:38 Heparin Flush 50 Units/5 Ml Syringe IV PUSH 50 units PRN PRN Administration after blood draws Heparin Sodium (Porcine) 500 units 03/29/25 23:50 04/05/25 05:26 Heparin Sodium Lock Flush 500 Units/5 Ml Syringe IV PUSH 500 units PRN PRN Administration see comments below Ceftriaxone Sodium 2 gm/ 100 mls @ 200 mls/hr 04/03/25 16:30 04/05/25 16:49 Sodium Chloride IVPB 04/06/25 16:29 Infused DAILY@1600 DANIELE Infusion Dextrose 1,000 mls @ 50 mls/hr 04/04/25 10:20 04/06/25 08:46 Dextrose 5% 1,000 Ml IV CONT Not Given .Q20H DANIELE Potassium Chloride/Dextrose/Sod Cl 1,000 mls @ 50 mls/hr 04/05/25 10:00 04/06/25 04:08 Kcl 20 Meq/D5/0.9% Sod Chl IV CONT 50 mls/hr .Q20H DANIELE Administration Loratadine 10 mg 03/30/25 09:00 04/06/25 08:52 Loratadine 10 Mg Tablet PO 10 mg QAM DANIELE Administration Losartan Potassium 25 mg 04/02/25 09:00 04/03/25 09:04 Losartan Potassium 25 Mg Tablet PO 25 mg On Hold: 04/04/25 08:20 DAILY DANIELE Administration Menthol/Methyl Salicylate 1 applic 04/06/25 02:01 04/06/25 02:24 Menthol 10% / Methyl Salicylate 15% 57 Gm Tube TOPICAL 1 applic BID PRN Administration Muscle/Joint Pain Metoprolol Tartrate 12.5 mg 03/31/25 21:00 04/03/25 21:24 Metoprolol Tartrate 12.5 Mg Tablet PO Not Given On Hold: 04/04/25 08:20 Q12HR DANIELE Midodrine 10 mg 04/03/25 23:20 04/06/25 08:47 Midodrine Hcl 10 Mg Tablet PO 10 mg TID DANIELE Administration Montelukast Sodium 10 mg 03/29/25 21:00 04/05/25 20:34 Montelukast Sodium 10 Mg Tablet PO 10 mg HS DANIELE Administration Pantoprazole Sodium 40 mg 04/04/25 09:00 04/06/25 08:52 Pantoprazole Sodium Iv 40 Mg Vial IV PUSH 40 mg Q12HR DANIELE Administration Polyethylene Glycol 17 gm 04/02/25 09:00 04/06/25 08:53 Polyethylene Glycol 3350 17 Gm Powd.Pack PO Not Given QAM [facility] Potassium Phos/Sodium Phos 1 packet 04/06/25 09:00 04/06/25 09:07 Potassium/Phosphorus/Sodium 1.5 Gm Packet PO 04/06/25 15:01 1 packet Q6H DANIELE Administration Fluticasone/Salmeterol 2 puff 03/29/25 20:00 04/06/25 08:41 Fluticasone/Salmeterol 45-21 Mcg Inhaler 1 Puff INHALATION 2 puff Q12HRT DANIELE Administration Senna 17.2 mg 03/30/25 09:00 04/02/25 08:36 Sennosides 8.6 Mg Tablet PO 17.2 mg On Hold: 04/02/25 08:45 BID DANIELE Administration Sodium Chloride 10 ml 03/30/25 06:00 04/06/25 04:14 Central Line Flush IV PUSH 10 ml Q8HR DANIELE Administration Verapamil HCl 180 mg 03/30/25 08:00 04/04/25 08:38 Verapamil Hcl 180 Mg Tablet Er PO Not Given On Hold: 04/04/25 08:20 DAILY@0800 [facility] Radiology Results: ITS Impressions Head CT 03/28/25 17:39 Impression: Age-indeterminate focus of left frontal subcortical ischemia. No hemorrhage. MRI recommended Head/Neck CTA 03/29/25 08:51 IMPRESSION: CTA NECK: 1. No ICA stenosis or other acute arterial abnormality. 2. Lytic bony metastatic disease C2, C5. 3. Lytic bony metastatic disease right scapula with large associated soft tissue component. CTA HEAD: 1. No large vessel arterial occlusive disease or other acute arterial abnormality. Brain MRI 03/30/25 15:18 IMPRESSION: 1. Scattered ossific white matter T2 hyperintensity consistent with chronic small vessel ischemic disease. No acute intracranial process. Venous Doppler Study 03/31/25 17:18 IMPRESSION: 1: No lower extremity deep venous thrombosis. Chest X-Ray 04/04/25 11:53 IMPRESSION: 1. Developing interstitial pulmonary edema and/or pneumonitis right lung. 2. Early airspace disease lung base not excluded. Labs Labs: Laboratory Results - last 24 hr 04/06/25 04:02 WBC 11.9 H RBC 3.41 L Hgb 10.1 L Hct 31.6 L MCV 92.7 MCH 29.6 MCHC 32.0 RDW 18.3 H Plt Count 160 MPV 9.7 Immature Gran % (Auto) 7.9 H Neut % (Auto) 79.0 H Lymph % (Auto) 4.2 L [place] % (Auto) 8.3 Eos % (Auto) 0.1 Baso % (Auto) 0.5 Lymph # (Auto) 0.50 L [place] # (Auto) 1.0 H Eos # (Auto) 0.0 Baso # (Auto) 0.1 Abs Immat Gran (auto) 0.94 H Absolute Neuts (auto) 9.4 H Absolute Nucleated RBC 0.000 Band Neutrophils % Not Reportable Nucleated RBC % 0.0 Platelet Estimate Adequate Anisocytosis 1+ Spherocytes 1+ Schistocytes None seen Sodium 129 L Potassium 4.5 Chloride 105 Carbon Dioxide 20 L Anion Gap 4 BUN 22 H Creatinine 1.08 H Estim Creat Clear Calc 42 Estimated GFR 52 L Glucose 91 Calcium 8.8 Phosphorus 2.1 L Magnesium 2.1 Total Bilirubin 0.4 AST 40 H ALT 44 H Alkaline Phosphatase 95 Total Protein 5.9 L Albumin 3.1 L
[2025-04-06] MEDS: METOPROLOL TARTRATE 6.25 MG TABLET PO ×2 (15:43→20:57)
[2025-04-06] MEDS: cefTRIAXone 2 GM in SODIUM CHLORIDE 0.9% IV 100 ML 200 ML IVPB (15:44)
[2025-04-06] MEDS: MONTELUKAST SODIUM 10 MG TABLET PO (20:57)
[2025-04-07] VITALS (24 sets, daily range): BP systolic 97–124; BP diastolic 53–80; PULSE 81–138; RESP 16–20; TEMP 36.4–37.2; O2SAT 91–97
[2025-04-07] MEDS: CENTRAL LINE FLUSH 10 ML IV PUSH ×2 (04:29→21:14)
[2025-04-07] MEDS: MENTHOL 10% / METHYL SALICYLATE 15% 57 GM TUBE 1 APPLIC TOPICAL (04:29)
[2025-04-07 04:50] LABS: Hematocrit 33.8 % (37.0-47.0); Hemoglobin 10.8 g/dL (12.0-15.0); Immature Granulocyte Percent A 6.8 % (0-0.5); Lymphocytes Absolute Auto 0.63 K/mm3 (0.9-3.2); Mean Corpuscular HGB Conc 32.0 g/dl (32-36); Mean Corpuscular Hemoglobin 29.9 pg (26-34); Mean Corpuscular Volume 93.6 fl (80-100); Nucleated Red Blood Cells Absolute Auto 0.000 K/mm3 (0.0-0.012); Nucleated Red Blood Cells Perc 0.0 % (0.0-0.2); Platelet Count Result 195 k/mm3 (150-375); Red Blood Count 3.61 M/mm3 (4.2-5.4); White Blood Count 14.3 K/mm3 (4.5-10.0)
[2025-04-07 05:10] LABS: Albumin Level 3.2 g/dL (3.5-5.1); Anion Gap 9 mmol/L (4-12); Blood Urea Nitrogen 17 mg/dL (7-17); Calcium 8.9 mg/dL (8.4-10.2); Carbon Dioxide 19 mmol/L (22-30); Chloride 105 mmol/L (98-107); Estimated CRCL calculation 45 ml/min; Estimated Glomerular Filt Rate 56; Glucose 88 mg/dL (65-110); Potassium 4.0 mmol/L (3.4-5.0); Sodium 133 mmol/L (137-145)
[2025-04-07 05:39] LABS: Anisocytosis 1+; Ovalocytes Occasional; Schistocytes None Seen
[2025-04-07] MEDS: MIDODRINE HCL 10 MG TABLET PO ×3 (07:58→17:41)
[2025-04-07] MEDS: METOPROLOL TARTRATE 6.25 MG TABLET PO (08:00)
[2025-04-07] MEDS: ATORVASTATIN 40 MG TABLET PO (08:01)
[2025-04-07] MEDS: FOLIC ACID 1 MG TABLET PO (08:01)
[2025-04-07] MEDS: PANTOPRAZOLE SODIUM IV 40 MG VIAL IV PUSH (08:01)
[2025-04-07] MEDS: LORATADINE 10 MG TABLET PO (08:02)
[2025-04-07] MEDS: FLUTICASONE/SALMETEROL 45-21 MCG INHALER 1 PUFF 2 PUFF INHALATION ×2 (08:57→21:15)
[2025-04-07] MEDS: METOPROLOL TARTRATE 25 MG TABLET PO ×2 (10:17→21:13)
[2025-04-07] MEDS: ACETAMINOPHEN 325 MG TABLET 650 MG PO ×2 (12:14→21:13)
[2025-04-07] MEDS: clonazePAM (*CRX) 0.5 MG TABLET PO ×2 (12:15→21:13)
--- NOTE | 2025-04-07 15:33 | PM.IMPN ---
Progress Note: A&P Assessment and Plan (1) Anemia: Code(s): D64.9 - Anemia, unspecified Status: Acute Assessment and Plan: Patient with Hgb 6.4 on the morning of 04/04. No obvious acute blood loss; consider lab error? Received PRBCs x2U. Serial HHs stable in the 9-10 range. Stool guaiac pending. Continue PPI therapy. Consider GI consult. (2) Hypotension: Code(s): I95.9 - Hypotension, unspecified Status: Acute Assessment and Plan: HoTN noted the other night and IVF bolus and Albumin given. Midodrine started. BP soft but stable. lactic normal. PCT 0.5 [place] HoTN related to acute blood loss? BP better. Monitor closely (3) Altered mental status: Code(s): R41.82 - Altered mental status, unspecified Status: Acute Assessment and Plan: Altered mental status/acute encephalopathy: CT head without contrast showed age indeterminate focus of left frontal subcortical ischemia, no hemorrhage CTA head and neck showed no ICA stenosis or other acute arterial abnormality. No large vessel arterial occlusion disease or other acute arterial abnormality of the head. MRI brain unremarkable; no evidence of CVA or masses B12, folate normal. Ammonia level <9. VitD 52. Cortisol 17. Echo with EF of 40-45% with regional wall motion abnormality, PFO Neurology consulted Patient is more awake and oriented. Probably AMS related to UTI and/or hypercalcemia and now has improved. Will follow. PT/OT/ST. Continue to orient (4) Cardiomyopathy: Code(s): I42.9 - Cardiomyopathy, unspecified Status: Acute Assessment and Plan: CMP; Patent foramen ovale Echo showing EF 40-45% with regional wall motion abnormality and PFO with R-->L shunt Cardiology consulted. LE venous doppler negative for DVT so unlikely paradoxical CVA. Metoprolol tartrate started. Maxide stopped and losartan added Due to HoTN and anemia, Plavix stopped. Verapamil, metoprolol and losartan held. CXR 02/01 showing developing interstitial pulm edema and/or pneumonitis right lung related to fluids adn PRBCs No Lasix given due to soft BP BP better so we added back metoprolol; Continue tele monitoring. Continue statin. Advance metoprolol. Stop verapamil. If BP remains stable, resume losartan Will need home O2 evaluation before discharge (5) Patent foramen ovale with right to left shunt: Code(s): Q21.12 - Patent foramen ovale Status: Acute Assessment and Plan: As above (6) Urinary tract infection: Code(s): N39.0 - Urinary tract infection, site not specified Status: Acute Assessment and Plan: UA noted. Bandemia was 15-17% but better at 6%. No BCx collected. Urine culture growing EColi sensitive to Rocephin. She completed course of Rocephin 04/06 WBC now up to 14K. No symptoms so will monitor. She has a post so check BCx if she has fever (7) Acute hyponatremia: Code(s): E87.1 - Hypo-osmolality and hyponatremia Status: Acute Assessment and Plan: Sodium dropped to 124. Urine studies c/w pre-renal Sodium up to 133 felt related to IV fluids -> 9mmol in 23 hours. Goal rate of correction would be 4-6mmol in 24 hours. She is malnurished and thus high risk for complications so will give DDAVP and started D5W. Serial Sodium levels improved to 128 so D5W stopped She is auto-correcting her sodium. Follow. (8) Hypercalcemia of malignancy: Code(s): E83.52 - Hypercalcemia Status: Acute Assessment and Plan: Calcium level of 14.4 on admission. Likely secondary to malignancy and bony mets. CTA head and neck showing lytic lesion C2, C5. Lytic lesion right scapula with large soft tissue component. Received zoledronic acid, calcitonin, IV fluids in the ER Calcium levels have improved Follow (9) Hypokalemia: Code(s): E87.6 - Hypokalemia Status: Acute Assessment and Plan: HypoK+ with HypoMag Cortisol and TSH okay. Potassium and magnesium levels okay Follow. (10) Ovarian cancer: Code(s): C56.9 - Malignant neoplasm of unspecified ovary Status: Acute Assessment and Plan: Ovarian CA with hx of metastatic cancer. Patient with stage IV ovarian cancer with metastasis Patient has been treated with chemo, radiation in the past, currently on maintenance therapy with Keytruda. MRI brain unremarkable Patient follows up with Oncology at [facility] did accept patient but family declined transfer (11) COPD (chronic obstructive pulmonary disease): Qualifiers: COPD type: unspecified COPD Qualified Code(s): J44.9 - Chronic obstructive pulmonary disease, unspecified Code(s): J44.9 - Chronic obstructive pulmonary disease, unspecified Status: Acute Assessment and Plan: Stable. No wheezing. Currently on room air Continue Advair (12) Hypertension: Code(s): I10 - Essential (primary) hypertension Status: Acute Assessment and Plan: Patient's blood pressure was reviewed on 04/07 Blood pressure soft and her anti-HTN meds were held BP better so metoprolol added back and will advance today Will continue to monitor. (13) Lice: Code(s): B85.2 - Pediculosis, unspecified Status: Acute Assessment and Plan: Noted on admission and treated with Nix. Plan Code status: Full DVT prophylaxis: SCDs Subjective Date/time seen: 04/07/25 15:33 Interval history: 59yo female with HTN and metastatic ovarian CA here for AMS. Feeling okay today. No problems overnight. No dysuria or hematuria. No diarrhea. Sligh cough that is nonproductive. Exam Narrative: AF 97.5 115/53 91 18 97% ra Gen - NARD Chest - few basilar crackles o/w clear. Right upper chest port accessed CV - RRR with S1-S2. Tele showing occasional sinus tachycardia Abd - soft, NT/ND with positive bowel sounds. Ext - no pedal edema Psych- alert, pleasant and cooperative Skin - Warm and dry. Objective Data Vital Signs Vital Signs: Vital Signs - 24 hr 04/06/25 15:43 04/06/25 16:00 04/06/25 16:20 Temperature 97.6 F Pulse Rate 103 H 97 98 Respiratory Rate 18 Blood Pressure 112/67 Pulse Oximetry 99 Oxygen Delivery Fraction of Inspired Oxygen 04/06/25 18:00 04/06/25 20:00 04/06/25 20:00 Temperature 98.6 F Pulse Rate 89 90 98 Respiratory Rate 20 20 Blood Pressure 107/59 L Pulse Oximetry 98 98 Oxygen Delivery Room Air Fraction of Inspired Oxygen 21 04/06/25 20:00 04/06/25 20:57 04/06/25 21:57 Temperature Pulse Rate 91 98 82 Respiratory Rate 20 Blood Pressure Pulse Oximetry Oxygen Delivery Fraction of Inspired Oxygen 04/06/25 22:00 04/06/25 22:00 04/06/25 23:39 Temperature Pulse Rate 82 82 82 Respiratory Rate 20 20 Blood Pressure Pulse Oximetry 96 96 Oxygen Delivery Room Air Room Air Fraction of Inspired Oxygen 21 04/07/25 00:00 04/07/25 00:00 04/07/25 02:00 Temperature 98.5 F Pulse Rate 81 84 91 Respiratory Rate 16 Blood Pressure 112/58 L Pulse Oximetry 97 Oxygen Delivery Fraction of Inspired Oxygen 04/07/25 03:52 04/07/25 04:00 04/07/25 04:00 Temperature 97.9 F Pulse Rate 91 115 H 113 H Respiratory Rate 16 18 Blood Pressure 118/79 Pulse Oximetry 97 91 Oxygen Delivery Room Air Fraction of Inspired Oxygen 21 04/07/25 06:00 04/07/25 07:31 04/07/25 08:00 Temperature 97.6 F Pulse Rate 115 H 131 H 138 H Respiratory Rate 18 Blood Pressure 124/75 Pulse Oximetry 97 Oxygen Delivery Fraction of Inspired Oxygen 04/07/25 08:05 04/07/25 10:17 04/07/25 11:57 Temperature 98.9 F Pulse Rate 88 135 H 104 H Respiratory Rate 20 18 Blood Pressure 97/53 L Pulse Oximetry 97 Oxygen Delivery Fraction of Inspired Oxygen 04/07/25 14:58 04/07/25 15:02 04/07/25 15:03 Temperature 97.5 F L Pulse Rate 91 98 109 H Respiratory Rate 18 Blood Pressure 115/53 L 116/65 110/80 Pulse Oximetry 97 Oxygen Delivery Fraction of Inspired Oxygen 04/07/25 15:13 Temperature 97.5 F L Pulse Rate 91 Respiratory Rate 18 Blood Pressure 115/53 L Pulse Oximetry 97 Oxygen Delivery Fraction of Inspired Oxygen Intake/Output Intake/Output: Intake & Output 04/04/25 04/05/25 04/06/25 04/07/25 23:59 23:59 23:59 23:59 Intake Total 4326.0 1385 2165 1600 Output Total 1100 271 560 5810 Balance 3226.0 435 1365 600 Meds/Results Medications: Active Medications Generic Name Dose Route Start Last Admin Trade Name Freq PRN Reason Stop Dose Admin Acetaminophen 650 mg 03/29/25 19:45 04/07/25 12:14 Acetaminophen 325 Mg Tablet PO 650 mg Q4H PRN Administration Mild Pain (1-3) or Fever Albuterol 2.5 mg 03/29/25 21:50 Albuterol Sulfate Neb 2.5 Mg/3 Ml Inh INHALATION Q4-6H PRN Shortness Of Breath Albuterol 2 puff 04/03/25 17:11 Albuterol Sulfate (*Sp) Aerosol 1 Puff INHALATION Q6HRT PRN Shortness Of Breath Or Wheezing Atorvastatin Calcium 40 mg 03/30/25 09:00 04/07/25 08:01 Atorvastatin 40 Mg Tablet PO 40 mg DAILY DANIELE Administration Clonazepam 0.5 mg 04/02/25 20:01 04/07/25 12:15 Clonazepam (*Crx) 0.5 Mg Tablet PO 0.5 mg TID PRN Administration anxiety Duloxetine HCl 30 mg 03/30/25 09:00 04/07/25 08:01 Duloxetine Hcl 30 Mg Capsule.Dr PO 30 mg DAILY DANIELE Administration Folic Acid 1 mg 03/30/25 09:00 04/07/25 08:01 Folic Acid 1 Mg Tablet PO 1 mg DAILY DANIELE Administration Heparin Sodium (Beef Lung) 50 units 03/30/25 09:00 04/07/25 08:02 Heparin Flush 50 Units/5 Ml Syringe IV PUSH 50 units QAM DANIELE Administration Heparin Sodium (Beef Lung) 50 units 03/29/25 23:50 Heparin Flush 50 Units/5 Ml Syringe IV PUSH PRN PRN after intermittent infusion Heparin Sodium (Beef Lung) 50 units 03/29/25 23:50 04/05/25 01:38 Heparin Flush 50 Units/5 Ml Syringe IV PUSH 50 units PRN PRN Administration after blood draws Heparin Sodium (Porcine) 500 units 03/29/25 23:50 04/05/25 05:26 Heparin Sodium Lock Flush 500 Units/5 Ml Syringe IV PUSH 500 units PRN PRN Administration see comments below Loratadine 10 mg 03/30/25 09:00 04/07/25 08:02 Loratadine 10 Mg Tablet PO 10 mg QAM DANIELE Administration Losartan Potassium 25 mg 04/02/25 09:00 04/03/25 09:04 Losartan Potassium 25 Mg Tablet PO 25 mg On Hold: 04/04/25 08:20 DAILY DANIELE Administration Menthol/Methyl Salicylate 1 applic 04/06/25 02:01 04/07/25 04:29 Menthol 10% / Methyl Salicylate 15% 57 Gm Tube TOPICAL 1 applic BID PRN Administration Muscle/Joint Pain Metoprolol Tartrate 25 mg 04/07/25 09:00 04/07/25 10:17 Metoprolol Tartrate 25 Mg Tablet PO 25 mg Q12HR DANIELE Administration Midodrine 10 mg 04/03/25 23:20 04/07/25 12:15 Midodrine Hcl 10 Mg Tablet PO 10 mg TID DANIELE Administration Montelukast Sodium 10 mg 03/29/25 21:00 04/06/25 20:57 Montelukast Sodium 10 Mg Tablet PO 10 mg HS DANIELE Administration Pantoprazole Sodium 40 mg 04/07/25 21:00 Pantoprazole 40 Mg Tablet PO Q12HR DANIELE Polyethylene Glycol 17 gm 04/02/25 09:00 04/07/25 08:01 Polyethylene Glycol 3350 17 Gm Powd.Pack PO Not Given QAM DANIELE Fluticasone/Salmeterol 2 puff 03/29/25 20:00 04/07/25 08:57 Fluticasone/Salmeterol 45-21 Mcg Inhaler 1 Puff INHALATION 2 puff Q12HRT DANIELE Administration Senna 17.2 mg 03/30/25 09:00 04/02/25 08:36 Sennosides 8.6 Mg Tablet PO 17.2 mg On Hold: 04/02/25 08:45 BID DANIELE Administration Sodium Chloride 10 ml 03/30/25 06:00 04/07/25 15:14 Central Line Flush IV PUSH Not Given Q8HR [facility] Verapamil HCl 180 mg 03/30/25 08:00 04/04/25 08:38 Verapamil Hcl 180 Mg Tablet Er PO Not Given On Hold: 04/04/25 08:20 DAILY@0800 [facility] Radiology Results: ITS Impressions Head CT 03/28/25 17:39 Impression: Age-indeterminate focus of left frontal subcortical ischemia. No hemorrhage. MRI recommended Head/Neck CTA 03/29/25 08:51 IMPRESSION: CTA NECK: 1. No ICA stenosis or other acute arterial abnormality. 2. Lytic bony metastatic disease C2, C5. 3. Lytic bony metastatic disease right scapula with large associated soft tissue component. CTA HEAD: 1. No large vessel arterial occlusive disease or other acute arterial abnormality. Brain MRI 03/30/25 15:18 IMPRESSION: 1. Scattered ossific white matter T2 hyperintensity consistent with chronic small vessel ischemic disease. No acute intracranial process. Venous Doppler Study 03/31/25 17:18 IMPRESSION: 1: No lower extremity deep venous thrombosis. Chest X-Ray 04/04/25 11:53 IMPRESSION: 1. Developing interstitial pulmonary edema and/or pneumonitis right lung. 2. Early airspace disease lung base not excluded. Labs Labs: Laboratory Results - last 24 hr 04/07/25 04:34 WBC 14.3 H RBC 3.61 L Hgb 10.8 L Hct 33.8 L MCV 93.6 MCH 29.9 MCHC 32.0 RDW 18.1 H Plt Count 195 MPV 9.8 Immature Gran % (Auto) 6.8 H Neut % (Auto) 78.7 H Lymph % (Auto) 4.4 L [place] % (Auto) 9.4 H Eos % (Auto) 0.1 Baso % (Auto) 0.6 Lymph # (Auto) 0.63 L [place] # (Auto) 1.3 H Eos # (Auto) 0.0 Baso # (Auto) 0.1 Abs Immat Gran (auto) 0.97 H Absolute Neuts (auto) 11.3 H Absolute Nucleated RBC 0.000 Band Neutrophils % Not Reportable Nucleated RBC % 0.0 Platelet Estimate Adequate Clumped Platelets Present Large Platelets Present Anisocytosis 1+ Ovalocytes Occasional Schistocytes None seen Sodium 133 L Potassium 4.0 Chloride 105 Carbon Dioxide 19 L Anion Gap 9 BUN 17 Creatinine 1.01 H Estim Creat Clear Calc 45 Estimated GFR 56 L Glucose 88 Calcium 8.9 Phosphorus 2.4 L Albumin 3.2 L
[2025-04-07] MEDS: MONTELUKAST SODIUM 10 MG TABLET PO (21:14)
[2025-04-07] MEDS: PANTOPRAZOLE 40 MG TABLET PO (21:14)
[2025-04-08] VITALS (18 sets, daily range): BP systolic 100–125; BP diastolic 48–68; PULSE 78–149; RESP 18–24; TEMP 36.6–37.1; O2SAT 95–98
[2025-04-08] MEDS: CENTRAL LINE FLUSH 10 ML IV PUSH ×3 (04:22→21:23)
[2025-04-08] MEDS: MENTHOL 10% / METHYL SALICYLATE 15% 57 GM TUBE 1 APPLIC TOPICAL ×2 (04:22→11:39)
[2025-04-08 04:29] LABS: Hematocrit 32.7 % (37.0-47.0); Hemoglobin 10.5 g/dL (12.0-15.0); Mean Corpuscular HGB Conc 32.1 g/dl (32-36); Mean Corpuscular Hemoglobin 30.0 pg (26-34); Mean Corpuscular Volume 93.4 fl (80-100); Platelet Count Result 212 k/mm3 (150-375); Red Blood Count 3.50 M/mm3 (4.2-5.4); White Blood Count 12.2 K/mm3 (4.5-10.0)
[2025-04-08 04:42] LABS: Albumin Level 3.1 g/dL (3.5-5.1); Anion Gap 8 mmol/L (4-12); Blood Urea Nitrogen 20 mg/dL (7-17); Calcium 8.8 mg/dL (8.4-10.2); Carbon Dioxide 21 mmol/L (22-30); Chloride 104 mmol/L (98-107); Estimated CRCL calculation 44 ml/min; Estimated Glomerular Filt Rate 54; Glucose 91 mg/dL (65-110); Magnesium 1.7 mg/dL (1.6-2.3); Potassium 3.7 mmol/L (3.4-5.0); Sodium 133 mmol/L (137-145)
[2025-04-08 05:19] LABS: Anisocytosis 1+; Band Neutrophils Percent 9 % (0-6); Burr Cells 1+; Lymphocytes Absolute Manual 0.48 K/mm3 (1.1-4.5); Lymphocytes Percent Manual 4.0 % (18-44); Metamyelocytes Percent 1 %; Monocytes Absolute Manual 0.48 K/mm3 (0.1-0.90); Monocytes Percent Manual 4 % (3-9); Neutrophils Absolute Manual 11.10 K/mm3 (1.3-6.7); Neutrophils Percent Manual 82 % (46-73); Schistocytes None Seen; Total Cells Counted 100
[2025-04-08 05:20] LABS: Ovalocytes 1+
--- NOTE | 2025-04-08 05:24 | PC.NURSE ---
This patient, Iliana Montero, was transferred to [facility] on 04/08/25 at 0515. Personal belongings sent with patient. Report given to MARIELA Loza. Appropriate documentation sent with patient.
--- NOTE | 2025-04-08 06:05 | PC.NURSE ---
Pt transferred from IMU via bed, report given by IMU nurse Colton. 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
[2025-04-08] MEDS: FLUTICASONE/SALMETEROL 45-21 MCG INHALER 1 PUFF 2 PUFF INHALATION ×2 (07:56→19:38)
[2025-04-08] MEDS: MAGNESIUM SULF 1 GM/D5W 100 ML 1 GM/100 ML BAG IVPB (08:28)
[2025-04-08] MEDS: POTASSIUM CHLORIDE 20 MEQ PACKET (FOR LIQUID) 40 MEQ PO (08:28)
[2025-04-08] MEDS: LORATADINE 10 MG TABLET PO (08:32)
[2025-04-08] MEDS: MIDODRINE HCL 10 MG TABLET PO ×3 (08:32→16:30)
[2025-04-08] MEDS: ATORVASTATIN 40 MG TABLET PO (08:32)
[2025-04-08] MEDS: FOLIC ACID 1 MG TABLET PO (08:32)
[2025-04-08] MEDS: METOPROLOL TARTRATE 25 MG TABLET PO ×2 (08:32→21:21)
[2025-04-08] MEDS: PANTOPRAZOLE 40 MG TABLET PO ×2 (08:33→21:23)
--- NOTE | 2025-04-08 14:40 | P.PNIM_ITS ---
Progress Note: A&P Assessment and Plan (1) Patent foramen ovale with right to left shunt: Code(s): Q21.12 - Patent foramen ovale Status: Acute (2) Cardiomyopathy: Code(s): I42.9 - Cardiomyopathy, unspecified Status: Acute (3) Hypercalcemia of malignancy: Code(s): E83.52 - Hypercalcemia Status: Acute (4) Hypokalemia: Code(s): E87.6 - Hypokalemia Status: Acute (5) Urinary tract infection: Code(s): N39.0 - Urinary tract infection, site not specified Status: Acute (6) Anemia: Code(s): D64.9 - Anemia, unspecified Status: Acute (7) Ovarian cancer: Code(s): C56.9 - Malignant neoplasm of unspecified ovary Status: Acute (8) Altered mental status: Code(s): R41.82 - Altered mental status, unspecified Status: Acute Plan 59-year-old female with past medical history of stage IV ovarian cancer with metastasis presenting with worsening mental status. She had recent clearly experiencing weakness, reduced appetite, slurring speech These symptoms were a significant change from the patient's baseline just days prior. Patient has been treated with chemo, radiation in the past, currently on maintenance therapy with Keytruda. , CT head without contrast showed age indeterminate focus of left frontal subcortical ischemia, no hemorrhage, CTA head and neck last night showed no ICA stenosis or other acute arterial abnormality, lytic bony metastatic disease C2, C5, lytic bony metastatic disease right scapula with large associated soft tissue component, no large vessel arterial occlusion disease or other acute arterial abnormality. Blood workup showed calcium level of 14.4 . Received calcitonin, zoledronic acid hypercalcemia. 1. Altered mental status/acute encephalopathy: CT with age indeterminate focus of left frontal subcortical ischemia MRI brain unremarkable Echocardiogram with EF of 40-45% with regional wall motion abnormality, PFO Mental status has improved Neurology following 2. UTI: Completed course of ceftriaxone 3. Hypercalcemia: Likely secondary to malignancy Received zoledronic acid, calcitonin, IV fluids Hypercalcemia has resolved 4. Anemia: Status post 2 units of PRBC H&H stable 5. History of metastatic cancer: MRI brain unremarkable Patient follows up with Oncology at [facility] 6.) Cardiomyopathy: Patent foramen ovale Echo showing EF 40-45% with regional wall motion abnormality and PFO with R-->L shunt Cardiology consulted. LE venous doppler negative for DVT so unlikely paradoxical CVA. Metoprolol tartrate started. Maxide stopped and losartan added Due to HoTN and anemia, Plavix stopped. Continue tele monitoring. Continue statin. Advance metoprolol. Stop verapamil. Will need home O2 evaluation before discharge 7. History of hypertension: Continue with losartan, metoprolol Verapamil has been stopped 8. Code status: Full 9. DVT prophylaxis: SCDs 9. Disposition: Pending placement Time Spent With Patient Time: 39 mins Subjective Date/time seen: 04/08/25 14:40 Interval history: No acute events overnight Review of Systems Review of Systems: All systems reviewed & are unremarkable except as noted in HPI and below Exam Narrative: Gen -no acute distress Chest -bilateral clear to auscultation CV - RRR with S1-S2. Abd - soft, NT/ND with positive bowel sounds. Ext - no pedal edema Psych- alert, pleasant and cooperative Skin - Warm and dry. Objective Data Vital Signs Vital Signs: Vital Signs - 24 hr 04/07/25 14:58 04/07/25 15:02 04/07/25 15:03 Temperature 97.5 F L Pulse Rate 91 98 109 H Respiratory Rate 18 Blood Pressure 115/53 L 116/65 110/80 Pulse Oximetry 97 Oxygen Delivery Fraction of Inspired Oxygen 04/07/25 15:13 04/07/25 16:00 04/07/25 16:00 Temperature 97.5 F L Pulse Rate 91 95 Respiratory Rate 18 Blood Pressure 115/53 L Pulse Oximetry 97 Oxygen Delivery Room Air Fraction of Inspired Oxygen 04/07/25 18:00 04/07/25 19:48 04/07/25 20:00 Temperature 97.6 F Pulse Rate 95 81 90 Respiratory Rate 20 Blood Pressure 114/63 Pulse Oximetry 96 Oxygen Delivery Fraction of Inspired Oxygen 04/07/25 21:13 04/07/25 21:35 04/08/25 00:00 Temperature Pulse Rate 92 92 78 Respiratory Rate 20 Blood Pressure Pulse Oximetry 96 Oxygen Delivery Room Air Fraction of Inspired Oxygen 04/08/25 00:26 04/08/25 04:00 04/08/25 05:31 Temperature 97.8 F 98.5 F Pulse Rate 78 83 96 Respiratory Rate 20 18 Blood Pressure 125/63 101/64 Pulse Oximetry 97 98 Oxygen Delivery Fraction of Inspired Oxygen 04/08/25 06:08 04/08/25 07:58 04/08/25 08:00 Temperature 98.8 F Pulse Rate 94 110 H 108 H Respiratory Rate 24 H Blood Pressure 120/60 Pulse Oximetry 95 Oxygen Delivery Fraction of Inspired Oxygen 04/08/25 08:03 04/08/25 08:32 04/08/25 08:33 Temperature Pulse Rate 114 H 149 H Respiratory Rate 24 H Blood Pressure Pulse Oximetry 95 Oxygen Delivery Room Air Fraction of Inspired Oxygen 21 04/08/25 12:00 Temperature Pulse Rate 87 Respiratory Rate Blood Pressure Pulse Oximetry Oxygen Delivery Fraction of Inspired Oxygen Intake/Output Intake/Output: Intake & Output 04/05/25 04/06/25 04/07/25 04/08/25 23:59 23:59 23:59 23:59 Intake Total 1385 2165 2240 702 Output Total 147 828 0287 Balance 435 1365 890 702 Meds/Results Medications: Active Medications Generic Name Dose Route Start Last Admin Trade Name Freq PRN Reason Stop Dose Admin Acetaminophen 650 mg 03/29/25 19:45 04/07/25 21:13 Acetaminophen 325 Mg Tablet PO 650 mg Q4H PRN Administration Mild Pain (1-3) or Fever Albuterol 2.5 mg 03/29/25 21:50 Albuterol Sulfate Neb 2.5 Mg/3 Ml Inh INHALATION Q4-6H PRN Shortness Of Breath Albuterol 2 puff 04/03/25 17:11 Albuterol Sulfate (*Sp) Aerosol 1 Puff INHALATION Q6HRT PRN Shortness Of Breath Or Wheezing Atorvastatin Calcium 40 mg 03/30/25 09:00 04/08/25 08:32 Atorvastatin 40 Mg Tablet PO 40 mg DAILY DANIELE Administration Clonazepam 0.5 mg 04/02/25 20:01 04/07/25 21:13 Clonazepam (*Crx) 0.5 Mg Tablet PO 0.5 mg TID PRN Administration anxiety Duloxetine HCl 30 mg 03/30/25 09:00 04/08/25 08:32 Duloxetine Hcl 30 Mg Capsule.Dr PO 30 mg DAILY DANIELE Administration Folic Acid 1 mg 03/30/25 09:00 04/08/25 08:32 Folic Acid 1 Mg Tablet PO 1 mg DAILY DANIELE Administration Heparin Sodium (Beef Lung) 50 units 03/30/25 09:00 04/08/25 09:40 Heparin Flush 50 Units/5 Ml Syringe IV PUSH 50 units QAM DANIELE Administration Heparin Sodium (Beef Lung) 50 units 03/29/25 23:50 Heparin Flush 50 Units/5 Ml Syringe IV PUSH PRN PRN after intermittent infusion Heparin Sodium (Beef Lung) 50 units 03/29/25 23:50 04/05/25 01:38 Heparin Flush 50 Units/5 Ml Syringe IV PUSH 50 units PRN PRN Administration after blood draws Heparin Sodium (Porcine) 500 units 03/29/25 23:50 04/05/25 05:26 Heparin Sodium Lock Flush 500 Units/5 Ml Syringe IV PUSH 500 units PRN PRN Administration see comments below Loratadine 10 mg 03/30/25 09:00 04/08/25 08:32 Loratadine 10 Mg Tablet PO 10 mg QAM DANIELE Administration Losartan Potassium 25 mg 04/02/25 09:00 04/03/25 09:04 Losartan Potassium 25 Mg Tablet PO 25 mg On Hold: 04/04/25 08:20 DAILY DANIELE Administration Menthol/Methyl Salicylate 1 applic 04/06/25 02:01 04/08/25 11:39 Menthol 10% / Methyl Salicylate 15% 57 Gm Tube TOPICAL 1 applic BID PRN Administration Muscle/Joint Pain Metoprolol Tartrate 25 mg 04/07/25 09:00 04/08/25 08:32 Metoprolol Tartrate 25 Mg Tablet PO 25 mg Q12HR DANIELE Administration Midodrine 10 mg 04/03/25 23:20 04/08/25 12:21 Midodrine Hcl 10 Mg Tablet PO 10 mg TID DANIELE Administration Montelukast Sodium 10 mg 03/29/25 21:00 04/07/25 21:14 Montelukast Sodium 10 Mg Tablet PO 10 mg HS DANIELE Administration Pantoprazole Sodium 40 mg 04/07/25 21:00 04/08/25 08:33 Pantoprazole 40 Mg Tablet PO 40 mg Q12HR DANIELE Administration Polyethylene Glycol 17 gm 04/02/25 09:00 04/08/25 09:40 Polyethylene Glycol 3350 17 Gm Powd.Pack PO Not Given QAM DANIELE Fluticasone/Salmeterol 2 puff 03/29/25 20:00 04/08/25 07:56 Fluticasone/Salmeterol 45-21 Mcg Inhaler 1 Puff INHALATION 2 puff Q12HRT DANIELE Administration Senna 17.2 mg 03/30/25 09:00 04/02/25 08:36 Sennosides 8.6 Mg Tablet PO 17.2 mg On Hold: 04/02/25 08:45 BID DANIELE Administration Sodium Chloride 10 ml 03/30/25 06:00 04/08/25 12:21 Central Line Flush IV PUSH 10 ml Q8HR DANIELE Administration Radiology Results: ITS Impressions Head CT 03/28/25 17:39 Impression: Age-indeterminate focus of left frontal subcortical ischemia. No hemorrhage. MRI recommended Head/Neck CTA 03/29/25 08:51 IMPRESSION: CTA NECK: 1. No ICA stenosis or other acute arterial abnormality. 2. Lytic bony metastatic disease C2, C5. 3. Lytic bony metastatic disease right scapula with large associated soft tissue component. CTA HEAD: 1. No large vessel arterial occlusive disease or other acute arterial abnormality. Brain MRI 03/30/25 15:18 IMPRESSION: 1. Scattered ossific white matter T2 hyperintensity consistent with chronic small vessel ischemic disease. No acute intracranial process. Venous Doppler Study 03/31/25 17:18 IMPRESSION: 1: No lower extremity deep venous thrombosis. Chest X-Ray 04/04/25 11:53 IMPRESSION: 1. Developing interstitial pulmonary edema and/or pneumonitis right lung. 2. Early airspace disease lung base not excluded. Labs Labs: Laboratory Results - last 24 hr 04/08/25 04:21 WBC 12.2 H RBC 3.50 L Hgb 10.5 L Hct 32.7 L MCV 93.4 MCH 30.0 MCHC 32.1 RDW 18.1 H Plt Count 212 MPV 9.4 Immature Gran % (Auto) Not Reportable Neut % (Auto) Not Reportable Lymph % (Auto) Not Reportable [place] % (Auto) Not Reportable Eos % (Auto) Not Reportable Baso % (Auto) Not Reportable Lymph # (Auto) Not Reportable [place] # (Auto) Not Reportable Eos # (Auto) Not Reportable Baso # (Auto) Not Reportable Abs Immat Gran (auto) Not Reportable Absolute Neuts (auto) Not Reportable Absolute Nucleated RBC Not Reportable Total Counted 100 Neutrophils % (Manual) 82 H Band Neutrophils % 9 H Lymphocytes % (Manual) 4.0 L Monocytes % (Manual) 4 Metamyelocytes % 1 Nucleated RBC % Not Reportable Abs Neuts (Manual) 11.10 H Abs Lymphs (Manual) 0.48 L Abs Monocytes (Manual) 0.48 Platelet Estimate Adequate Anisocytosis 1+ Ovalocytes 1+ [place] Cells 1+ Schistocytes None seen Sodium 133 L Potassium 3.7 Chloride 104 Carbon Dioxide 21 L Anion Gap 8 BUN 20 H Creatinine 1.03 H Estim Creat Clear Calc 44 Estimated GFR 54 L Glucose 91 Calcium 8.8 Phosphorus 2.8 Magnesium 1.7 Albumin 3.1 L Quality VTE Prophylaxis VTE prophylaxis: mechanical ordered
[2025-04-08] MEDS: MONTELUKAST SODIUM 10 MG TABLET PO (21:21)
[2025-04-09] VITALS (15 sets, daily range): BP systolic 95–109; BP diastolic 55–64; PULSE 82–114; RESP 16–18; TEMP 36.6–37.2; O2SAT 96–97
[2025-04-09] MEDS: CENTRAL LINE FLUSH 10 ML IV PUSH ×3 (06:32→20:32)
[2025-04-09] MEDS: FLUTICASONE/SALMETEROL 45-21 MCG INHALER 1 PUFF 2 PUFF INHALATION ×2 (08:01→19:36)
[2025-04-09] MEDS: METOPROLOL TARTRATE 25 MG TABLET PO ×2 (08:56→20:31)
[2025-04-09] MEDS: PANTOPRAZOLE 40 MG TABLET PO ×2 (08:56→20:31)
[2025-04-09] MEDS: ATORVASTATIN 40 MG TABLET PO (08:57)
[2025-04-09] MEDS: MIDODRINE HCL 10 MG TABLET PO ×3 (08:57→16:11)
[2025-04-09] MEDS: FOLIC ACID 1 MG TABLET PO (08:57)
[2025-04-09] MEDS: LORATADINE 10 MG TABLET PO (08:57)
--- NOTE | 2025-04-09 13:31 | PM.IMPN ---
Progress Note: A&P Assessment and Plan (1) Patent foramen ovale with right to left shunt: Code(s): Q21.12 - Patent foramen ovale Status: Acute (2) Cardiomyopathy: Code(s): I42.9 - Cardiomyopathy, unspecified Status: Acute (3) Hypercalcemia of malignancy: Code(s): E83.52 - Hypercalcemia Status: Acute (4) Hypokalemia: Code(s): E87.6 - Hypokalemia Status: Acute (5) Urinary tract infection: Code(s): N39.0 - Urinary tract infection, site not specified Status: Acute (6) Anemia: Code(s): D64.9 - Anemia, unspecified Status: Acute (7) Ovarian cancer: Code(s): C56.9 - Malignant neoplasm of unspecified ovary Status: Acute (8) Altered mental status: Code(s): R41.82 - Altered mental status, unspecified Status: Acute Plan 59-year-old female with past medical history of stage IV ovarian cancer with metastasis presenting with worsening mental status. She had recent clearly experiencing weakness, reduced appetite, slurring speech These symptoms were a significant change from the patient's baseline just days prior. Patient has been treated with chemo, radiation in the past, currently on maintenance therapy with Keytruda. , CT head without contrast showed age indeterminate focus of left frontal subcortical ischemia, no hemorrhage, CTA head and neck last night showed no ICA stenosis or other acute arterial abnormality, lytic bony metastatic disease C2, C5, lytic bony metastatic disease right scapula with large associated soft tissue component, no large vessel arterial occlusion disease or other acute arterial abnormality. Blood workup showed calcium level of 14.4 . Received calcitonin, zoledronic acid hypercalcemia. 1. Altered mental status/acute encephalopathy: CT with age indeterminate focus of left frontal subcortical ischemia MRI brain unremarkable Echocardiogram with EF of 40-45% with regional wall motion abnormality, PFO Mental status has improved Neurology following 2. UTI: Completed course of ceftriaxone 3. Hypercalcemia: Likely secondary to malignancy Received zoledronic acid, calcitonin, IV fluids Hypercalcemia has resolved 4. Anemia: Status post 2 units of PRBC H&H stable 5. History of metastatic cancer: MRI brain unremarkable Patient follows up with Oncology at [facility] 6.) Cardiomyopathy: Patent foramen ovale Echo showing EF 40-45% with regional wall motion abnormality and PFO with R-->L shunt Cardiology consulted. LE venous doppler negative for DVT so unlikely paradoxical CVA. Metoprolol tartrate started. Maxide stopped and losartan added Due to HoTN and anemia, Plavix stopped. Continue tele monitoring. Continue statin. Verapamil has been stopped Will need home O2 evaluation before discharge 7. History of hypertension: Continue with losartan, metoprolol Verapamil has been stopped 8. Code status: Full 9. DVT prophylaxis: SCDs 9. Disposition: Pending placement. Peer to peer scheduled today for 4:00 p.m. today will update case management Time Spent With Patient Time: 39 mins Subjective Date/time seen: 04/09/25 13:31 Interval history: No acute events overnight Review of Systems Review of Systems: All systems reviewed & are unremarkable except as noted in HPI and below Exam Narrative: Gen -no acute distress Chest -bilateral clear to auscultation CV - RRR with S1-S2. Abd - soft, NT/ND with positive bowel sounds. Ext - no pedal edema Psych- alert, pleasant and cooperative Skin - Warm and dry. Objective Data Vital Signs Vital Signs: Vital Signs - 24 hr 04/08/25 16:00 04/08/25 16:03 04/08/25 19:38 Temperature 98.7 F Pulse Rate 100 87 91 Respiratory Rate 19 18 Blood Pressure 118/68 Pulse Oximetry 95 Oxygen Delivery 04/08/25 19:40 04/08/25 20:00 04/08/25 20:50 Temperature 98.3 F Pulse Rate 91 93 Respiratory Rate 18 Blood Pressure 100/48 L Pulse Oximetry 95 97 Oxygen Delivery Room Air 04/08/25 21:21 04/09/25 00:00 04/09/25 04:00 Temperature Pulse Rate 93 95 82 Respiratory Rate Blood Pressure Pulse Oximetry Oxygen Delivery 04/09/25 04:40 04/09/25 04:40 04/09/25 04:43 Temperature 97.8 F Pulse Rate 97 98 99 Respiratory Rate 18 Blood Pressure 109/55 L 109/55 L 100/64 Pulse Oximetry 97 Oxygen Delivery 04/09/25 04:46 04/09/25 08:00 04/09/25 08:02 Temperature Pulse Rate 114 H 85 Respiratory Rate Blood Pressure 106/58 L Pulse Oximetry 96 Oxygen Delivery Room Air 04/09/25 08:56 04/09/25 12:00 Temperature Pulse Rate 110 H 84 Respiratory Rate Blood Pressure Pulse Oximetry Oxygen Delivery Intake/Output Intake/Output: Intake & Output 04/06/25 04/07/25 04/08/25 04/09/25 23:59 23:59 23:59 23:59 Intake Total 2165 2240 924 270 Output Total 800 1350 400 Balance 1365 890 524 270 Meds/Results Medications: Active Medications Generic Name Dose Route Start Last Admin Trade Name Freq PRN Reason Stop Dose Admin Acetaminophen 650 mg 03/29/25 19:45 04/07/25 21:13 Acetaminophen 325 Mg Tablet PO 650 mg Q4H PRN Administration Mild Pain (1-3) or Fever Albuterol 2.5 mg 03/29/25 21:50 Albuterol Sulfate Neb 2.5 Mg/3 Ml Inh INHALATION Q4-6H PRN Shortness Of Breath Albuterol 2 puff 04/03/25 17:11 Albuterol Sulfate (*Sp) Aerosol 1 Puff INHALATION Q6HRT PRN Shortness Of Breath Or Wheezing Atorvastatin Calcium 40 mg 03/30/25 09:00 04/09/25 08:57 Atorvastatin 40 Mg Tablet PO 40 mg DAILY DANIELE Administration Clonazepam 0.5 mg 04/02/25 20:01 04/07/25 21:13 Clonazepam (*Crx) 0.5 Mg Tablet PO 0.5 mg TID PRN Administration anxiety Duloxetine HCl 30 mg 03/30/25 09:00 04/09/25 08:57 Duloxetine Hcl 30 Mg Capsule.Dr PO 30 mg DAILY DANIELE Administration Folic Acid 1 mg 03/30/25 09:00 04/09/25 08:57 Folic Acid 1 Mg Tablet PO 1 mg DAILY DANIELE Administration Heparin Sodium (Beef Lung) 50 units 03/30/25 09:00 04/09/25 08:56 Heparin Flush 50 Units/5 Ml Syringe IV PUSH 50 units QAM DANIELE Administration Heparin Sodium (Beef Lung) 50 units 03/29/25 23:50 Heparin Flush 50 Units/5 Ml Syringe IV PUSH PRN PRN after intermittent infusion Heparin Sodium (Beef Lung) 50 units 03/29/25 23:50 04/05/25 01:38 Heparin Flush 50 Units/5 Ml Syringe IV PUSH 50 units PRN PRN Administration after blood draws Heparin Sodium (Porcine) 500 units 03/29/25 23:50 04/05/25 05:26 Heparin Sodium Lock Flush 500 Units/5 Ml Syringe IV PUSH 500 units PRN PRN Administration see comments below Loratadine 10 mg 03/30/25 09:00 04/09/25 08:57 Loratadine 10 Mg Tablet PO 10 mg QAM DANIELE Administration Losartan Potassium 25 mg 04/02/25 09:00 04/03/25 09:04 Losartan Potassium 25 Mg Tablet PO 25 mg On Hold: 04/04/25 08:20 DAILY DANIELE Administration Menthol/Methyl Salicylate 1 applic 04/06/25 02:01 04/08/25 11:39 Menthol 10% / Methyl Salicylate 15% 57 Gm Tube TOPICAL 1 applic BID PRN Administration Muscle/Joint Pain Metoprolol Tartrate 25 mg 04/07/25 09:00 04/09/25 08:56 Metoprolol Tartrate 25 Mg Tablet PO 25 mg Q12HR DANIELE Administration Midodrine 10 mg 04/03/25 23:20 04/09/25 12:02 Midodrine Hcl 10 Mg Tablet PO 10 mg TID DANIELE Administration Montelukast Sodium 10 mg 03/29/25 21:00 04/08/25 21:21 Montelukast Sodium 10 Mg Tablet PO 10 mg HS DANIELE Administration Pantoprazole Sodium 40 mg 04/07/25 21:00 04/09/25 08:56 Pantoprazole 40 Mg Tablet PO 40 mg Q12HR DANIELE Administration Polyethylene Glycol 17 gm 04/02/25 09:00 04/09/25 08:56 Polyethylene Glycol 3350 17 Gm Powd.Pack PO Not Given QAM DANIELE Fluticasone/Salmeterol 2 puff 03/29/25 20:00 04/09/25 08:01 Fluticasone/Salmeterol 45-21 Mcg Inhaler 1 Puff INHALATION 2 puff Q12HRT DANIELE Administration Senna 17.2 mg 03/30/25 09:00 04/02/25 08:36 Sennosides 8.6 Mg Tablet PO 17.2 mg On Hold: 04/02/25 08:45 BID DANIELE Administration Sodium Chloride 10 ml 03/30/25 06:00 04/09/25 12:03 Central Line Flush IV PUSH 10 ml Q8HR DANIELE Administration Radiology Results: ITS Impressions Head CT 03/28/25 17:39 Impression: Age-indeterminate focus of left frontal subcortical ischemia. No hemorrhage. MRI recommended Head/Neck CTA 03/29/25 08:51 IMPRESSION: CTA NECK: 1. No ICA stenosis or other acute arterial abnormality. 2. Lytic bony metastatic disease C2, C5. 3. Lytic bony metastatic disease right scapula with large associated soft tissue component. CTA HEAD: 1. No large vessel arterial occlusive disease or other acute arterial abnormality. Brain MRI 03/30/25 15:18 IMPRESSION: 1. Scattered ossific white matter T2 hyperintensity consistent with chronic small vessel ischemic disease. No acute intracranial process. Venous Doppler Study 03/31/25 17:18 IMPRESSION: 1: No lower extremity deep venous thrombosis. Chest X-Ray 04/04/25 11:53 IMPRESSION: 1. Developing interstitial pulmonary edema and/or pneumonitis right lung. 2. Early airspace disease lung base not excluded. Quality VTE Prophylaxis VTE prophylaxis: mechanical ordered
[2025-04-09] MEDS: MONTELUKAST SODIUM 10 MG TABLET PO (20:31)
[2025-04-10] VITALS (14 sets, daily range): BP systolic 93–119; BP diastolic 54–68; PULSE 76–107; RESP 16–18; TEMP 36.8–37.5; O2SAT 94–99
[2025-04-10] MEDS: CENTRAL LINE FLUSH 10 ML IV PUSH ×3 (07:08→22:39)
[2025-04-10] MEDS: FLUTICASONE/SALMETEROL 45-21 MCG INHALER 1 PUFF 2 PUFF INHALATION ×2 (07:50→20:44)
[2025-04-10] MEDS: FOLIC ACID 1 MG TABLET PO (08:38)
[2025-04-10] MEDS: MIDODRINE HCL 10 MG TABLET PO ×3 (08:38→16:30)
[2025-04-10] MEDS: LORATADINE 10 MG TABLET PO (08:38)
[2025-04-10] MEDS: ATORVASTATIN 40 MG TABLET PO (08:38)
[2025-04-10] MEDS: PANTOPRAZOLE 40 MG TABLET PO ×2 (08:38→20:17)
[2025-04-10] MEDS: METOPROLOL TARTRATE 12.5 MG TABLET PO ×2 (09:17→20:16)
--- NOTE | 2025-04-10 10:38 | PCNFU ---
Nutrition Follow-Up Complete: Inadequate oral intake related to altered mental status as evidenced by report of poor intake 2 weeks goal: PO intake >50% Patient is meeting goal. No new goal. Pt current nutrition is Regular with diet supplements. Last recorded weight is 68.2 kg, up from admit 64.2 kg. Bowel Motility: Last reported BM 04/10 Labs Reviewed: no new labs to report. Meds Noted:Folic Acid, Miralax, Protonix. Skin: WNL Additional Notes:Patient is tolerating regular diet. Diet supplements BID are providing an additional 350 kcal and 20 gm protein. Agree with diet orders. Monitoring intakes, weights, labs, supplement tolerance, feeding ability, plan of care Follow up in 7 days
--- NOTE | 2025-04-10 13:47 | P.PNIM_ITS ---
Progress Note: A&P Assessment and Plan (1) Patent foramen ovale with right to left shunt: Code(s): Q21.12 - Patent foramen ovale Status: Acute (2) Cardiomyopathy: Code(s): I42.9 - Cardiomyopathy, unspecified Status: Acute (3) Hypercalcemia of malignancy: Code(s): E83.52 - Hypercalcemia Status: Acute (4) Hypokalemia: Code(s): E87.6 - Hypokalemia Status: Acute (5) Urinary tract infection: Code(s): N39.0 - Urinary tract infection, site not specified Status: Acute (6) Anemia: Code(s): D64.9 - Anemia, unspecified Status: Acute (7) Ovarian cancer: Code(s): C56.9 - Malignant neoplasm of unspecified ovary Status: Acute (8) Altered mental status: Code(s): R41.82 - Altered mental status, unspecified Status: Acute Plan 59-year-old female with past medical history of stage IV ovarian cancer with metastasis presenting with worsening mental status. She had recent clearly experiencing weakness, reduced appetite, slurring speech These symptoms were a significant change from the patient's baseline just days prior. Patient has been treated with chemo, radiation in the past, currently on maintenance therapy with Keytruda. , CT head without contrast showed age indeterminate focus of left frontal subcortical ischemia, no hemorrhage, CTA head and neck last night showed no ICA stenosis or other acute arterial abnormality, lytic bony metastatic disease C2, C5, lytic bony metastatic disease right scapula with large associated soft tissue component, no large vessel arterial occlusion disease or other acute arterial abnormality. Blood workup showed calcium level of 14.4 . Received calcitonin, zoledronic acid hypercalcemia. 1. Altered mental status/acute encephalopathy: CT with age indeterminate focus of left frontal subcortical ischemia MRI brain unremarkable Echocardiogram with EF of 40-45% with regional wall motion abnormality, PFO Mental status has improved Neurology following 2. UTI: Completed course of ceftriaxone 3. Hypercalcemia: Likely secondary to malignancy Received zoledronic acid, calcitonin, IV fluids Hypercalcemia has resolved 4. Anemia: Status post 2 units of PRBC H&H stable 5. History of metastatic cancer: MRI brain unremarkable Patient follows up with Oncology at [facility] 6.) Cardiomyopathy: Patent foramen ovale Echo showing EF 40-45% with regional wall motion abnormality and PFO with R-->L shunt Cardiology consulted. LE venous doppler negative for DVT so unlikely paradoxical CVA. Metoprolol tartrate started. Maxide stopped and losartan added Due to HoTN and anemia, Plavix stopped. Continue tele monitoring. Continue statin. Verapamil has been stopped Will need home O2 evaluation before discharge 7. History of hypertension: Continue with losartan, metoprolol Verapamil has been stopped 8. Code status: Full 9. DVT prophylaxis: SCDs 9. Disposition: Pending placement. Subjective Date/time seen: 04/10/25 13:47 Interval history: No overnight events. No new complaints. Telemetry reviewed. Review of Systems Review of Systems: All systems reviewed & are unremarkable except as noted in HPI and below Exam Narrative: Gen -no acute distress Chest -bilateral clear to auscultation CV - RRR with S1-S2. Abd - soft, NT/ND with positive bowel sounds. Ext - no pedal edema Psych- alert, pleasant and cooperative Skin - Warm and dry. Objective Data Vital Signs Vital Signs: Vital Signs - 24 hr 04/09/25 15:48 04/09/25 16:00 04/09/25 19:40 Temperature 99 F Pulse Rate 89 89 Respiratory Rate 16 Blood Pressure 95/58 L Pulse Oximetry 97 96 Oxygen Delivery Room Air 04/09/25 19:59 04/09/25 20:00 04/09/25 20:31 Temperature 98.4 F Pulse Rate 97 100 94 Respiratory Rate 16 Blood Pressure 103/57 L Pulse Oximetry 96 Oxygen Delivery 04/10/25 00:00 04/10/25 04:00 04/10/25 04:00 Temperature 98.2 F Pulse Rate 86 89 76 Respiratory Rate 16 Blood Pressure 96/54 L Pulse Oximetry 96 Oxygen Delivery 04/10/25 07:50 04/10/25 07:55 04/10/25 08:00 Temperature Pulse Rate 94 94 104 H Respiratory Rate 18 18 Blood Pressure Pulse Oximetry 94 Oxygen Delivery Room Air 04/10/25 09:17 04/10/25 12:00 Temperature Pulse Rate 105 H 95 Respiratory Rate Blood Pressure Pulse Oximetry Oxygen Delivery Intake/Output Intake/Output: Intake & Output 04/07/25 04/08/25 04/09/25 04/10/25 23:59 23:59 23:59 23:59 Intake Total 2240 924 510 120 Output Total 4222 835 4278 Balance 890 524 -490 120 Meds/Results Medications: Active Medications Generic Name Dose Route Start Last Admin Trade Name Freq PRN Reason Stop Dose Admin Acetaminophen 650 mg 03/29/25 19:45 04/07/25 21:13 Acetaminophen 325 Mg Tablet PO 650 mg Q4H PRN Administration Mild Pain (1-3) or Fever Albuterol 2.5 mg 03/29/25 21:50 Albuterol Sulfate Neb 2.5 Mg/3 Ml Inh INHALATION Q4-6H PRN Shortness Of Breath Albuterol 2 puff 04/03/25 17:11 Albuterol Sulfate (*Sp) Aerosol 1 Puff INHALATION Q6HRT PRN Shortness Of Breath Or Wheezing Atorvastatin Calcium 40 mg 03/30/25 09:00 04/10/25 08:38 Atorvastatin 40 Mg Tablet PO 40 mg DAILY DANIELE Administration Clonazepam 0.5 mg 04/02/25 20:01 04/07/25 21:13 Clonazepam (*Crx) 0.5 Mg Tablet PO 0.5 mg TID PRN Administration anxiety Duloxetine HCl 30 mg 03/30/25 09:00 04/10/25 08:38 Duloxetine Hcl 30 Mg Capsule.Dr PO 30 mg DAILY DANIELE Administration Folic Acid 1 mg 03/30/25 09:00 04/10/25 08:38 Folic Acid 1 Mg Tablet PO 1 mg DAILY DANIELE Administration Heparin Sodium (Beef Lung) 50 units 03/30/25 09:00 04/10/25 08:39 Heparin Flush 50 Units/5 Ml Syringe IV PUSH 50 units QAM DANIELE Administration Heparin Sodium (Beef Lung) 50 units 03/29/25 23:50 Heparin Flush 50 Units/5 Ml Syringe IV PUSH PRN PRN after intermittent infusion Heparin Sodium (Beef Lung) 50 units 03/29/25 23:50 04/05/25 01:38 Heparin Flush 50 Units/5 Ml Syringe IV PUSH 50 units PRN PRN Administration after blood draws Heparin Sodium (Porcine) 500 units 03/29/25 23:50 04/05/25 05:26 Heparin Sodium Lock Flush 500 Units/5 Ml Syringe IV PUSH 500 units PRN PRN Administration see comments below Loratadine 10 mg 03/30/25 09:00 04/10/25 08:38 Loratadine 10 Mg Tablet PO 10 mg QAM DANIELE Administration Losartan Potassium 25 mg 04/02/25 09:00 04/03/25 09:04 Losartan Potassium 25 Mg Tablet PO 25 mg On Hold: 04/04/25 08:20 DAILY DANIELE Administration Menthol/Methyl Salicylate 1 applic 04/06/25 02:01 04/08/25 11:39 Menthol 10% / Methyl Salicylate 15% 57 Gm Tube TOPICAL 1 applic BID PRN Administration Muscle/Joint Pain Metoprolol Tartrate 12.5 mg 04/10/25 09:00 04/10/25 09:17 Metoprolol Tartrate 12.5 Mg Tablet PO 12.5 mg Q12HR DANIELE Administration Midodrine 10 mg 04/03/25 23:20 04/10/25 12:15 Midodrine Hcl 10 Mg Tablet PO 10 mg TID DANIELE Administration Montelukast Sodium 10 mg 03/29/25 21:00 04/09/25 20:31 Montelukast Sodium 10 Mg Tablet PO 10 mg HS DANIELE Administration Pantoprazole Sodium 40 mg 04/07/25 21:00 04/10/25 08:38 Pantoprazole 40 Mg Tablet PO 40 mg Q12HR DANIELE Administration Polyethylene Glycol 17 gm 04/02/25 09:00 04/10/25 08:40 Polyethylene Glycol 3350 17 Gm Powd.Pack PO Not Given QAM DANIELE Fluticasone/Salmeterol 2 puff 03/29/25 20:00 04/10/25 07:50 Fluticasone/Salmeterol 45-21 Mcg Inhaler 1 Puff INHALATION 2 puff Q12HRT DANIELE Administration Senna 17.2 mg 03/30/25 09:00 04/02/25 08:36 Sennosides 8.6 Mg Tablet PO 17.2 mg On Hold: 04/02/25 08:45 BID DANIELE Administration Sodium Chloride 10 ml 03/30/25 06:00 04/10/25 12:15 Central Line Flush IV PUSH 10 ml Q8HR DANIELE Administration Radiology Results: ITS Impressions Head CT 03/28/25 17:39 Impression: Age-indeterminate focus of left frontal subcortical ischemia. No hemorrhage. MRI recommended Head/Neck CTA 03/29/25 08:51 IMPRESSION: CTA NECK: 1. No ICA stenosis or other acute arterial abnormality. 2. Lytic bony metastatic disease C2, C5. 3. Lytic bony metastatic disease right scapula with large associated soft tissue component. CTA HEAD: 1. No large vessel arterial occlusive disease or other acute arterial abnormality. Brain MRI 03/30/25 15:18 IMPRESSION: 1. Scattered ossific white matter T2 hyperintensity consistent with chronic small vessel ischemic disease. No acute intracranial process. Venous Doppler Study 03/31/25 17:18 IMPRESSION: 1: No lower extremity deep venous thrombosis. Chest X-Ray 04/04/25 11:53 IMPRESSION: 1. Developing interstitial pulmonary edema and/or pneumonitis right lung. 2. Early airspace disease lung base not excluded.
[2025-04-10] MEDS: MONTELUKAST SODIUM 10 MG TABLET PO (20:17)
[2025-04-10] MEDS: ACETAMINOPHEN 325 MG TABLET 650 MG PO (20:20)
[2025-04-11] VITALS (18 sets, daily range): BP systolic 103–126; BP diastolic 47–80; PULSE 72–130; RESP 15–26; TEMP 36.4–37.7; O2SAT 95–98
[2025-04-11 04:23] LABS: Hematocrit 29.0 % (37.0-47.0); Hemoglobin 9.5 g/dL (12.0-15.0); Immature Granulocyte Percent A 5.3 % (0-0.5); Lymphocytes Absolute Auto 0.61 K/mm3 (0.9-3.2); Mean Corpuscular HGB Conc 32.8 g/dl (32-36); Mean Corpuscular Hemoglobin 30.0 pg (26-34); Mean Corpuscular Volume 91.5 fl (80-100); Nucleated Red Blood Cells Absolute Auto 0.000 K/mm3 (0.0-0.012); Nucleated Red Blood Cells Perc 0.0 % (0.0-0.2); Platelet Count Result 269 k/mm3 (150-375); Red Blood Count 3.17 M/mm3 (4.2-5.4); White Blood Count 9.7 K/mm3 (4.5-10.0)
[2025-04-11 04:45] LABS: Alanine Aminotransferase 122 U/L (6-35); Albumin Level 3.1 g/dL (3.5-5.1); Alkaline Phosphatase 117 U/L (38-126); Anion Gap 7 mmol/L (4-12); Aspartate Amino Transferase 118 U/L (14-36); Bilirubin,Total 0.6 mg/dL (0.2-1.3); Blood Urea Nitrogen 14 mg/dL (7-17); Calcium 9.1 mg/dL (8.4-10.2); Carbon Dioxide 23 mmol/L (22-30); Chloride 103 mmol/L (98-107); Estimated CRCL calculation 48 ml/min; Estimated Glomerular Filt Rate > 60; Glucose 105 mg/dL (65-110); Magnesium 1.7 mg/dL (1.6-2.3); Potassium 2.9 mmol/L (3.4-5.0); Sodium 133 mmol/L (137-145); Total Protein 5.7 g/dL (6.3-8.2)
[2025-04-11] MEDS: CENTRAL LINE FLUSH 10 ML IV PUSH ×3 (06:03→21:09)
[2025-04-11] MEDS: FLUTICASONE/SALMETEROL 45-21 MCG INHALER 1 PUFF 2 PUFF INHALATION ×2 (07:23→19:30)
[2025-04-11] MEDS: POTASSIUM CHLORIDE 20 MEQ ER TABLET 40 MEQ PO (09:15)
[2025-04-11] MEDS: METOPROLOL TARTRATE 12.5 MG TABLET PO (09:16)
[2025-04-11] MEDS: MIDODRINE HCL 10 MG TABLET PO ×3 (09:16→16:00)
[2025-04-11] MEDS: LORATADINE 10 MG TABLET PO (09:16)
[2025-04-11] MEDS: PANTOPRAZOLE 40 MG TABLET PO ×2 (09:16→21:09)
[2025-04-11] MEDS: FOLIC ACID 1 MG TABLET PO (09:17)
[2025-04-11] MEDS: ATORVASTATIN 40 MG TABLET PO (09:17)
[2025-04-11] MEDS: METOPROLOL TARTRATE INJ 5 MG/5 ML VIAL IV PUSH (10:59)
[2025-04-11] MEDS: ACETAMINOPHEN 325 MG TABLET 650 MG PO (12:08)
--- NOTE | 2025-04-11 12:37 | P.PNIM_ITS ---
Progress Note: A&P Assessment and Plan (1) Patent foramen ovale with right to left shunt: Code(s): Q21.12 - Patent foramen ovale Status: Acute (2) Cardiomyopathy: Code(s): I42.9 - Cardiomyopathy, unspecified Status: Acute (3) Hypercalcemia of malignancy: Code(s): E83.52 - Hypercalcemia Status: Acute (4) Hypokalemia: Code(s): E87.6 - Hypokalemia Status: Acute (5) Urinary tract infection: Code(s): N39.0 - Urinary tract infection, site not specified Status: Acute (6) Anemia: Code(s): D64.9 - Anemia, unspecified Status: Acute (7) Ovarian cancer: Code(s): C56.9 - Malignant neoplasm of unspecified ovary Status: Acute (8) Altered mental status: Code(s): R41.82 - Altered mental status, unspecified Status: Acute Plan 59-year-old female with past medical history of stage IV ovarian cancer with metastasis presenting with worsening mental status. She had recent clearly experiencing weakness, reduced appetite, slurring speech These symptoms were a significant change from the patient's baseline just days prior. Patient has been treated with chemo, radiation in the past, currently on maintenance therapy with Keytruda. , CT head without contrast showed age indeterminate focus of left frontal subcortical ischemia, no hemorrhage, CTA head and neck last night showed no ICA stenosis or other acute arterial abnormality, lytic bony metastatic disease C2, C5, lytic bony metastatic disease right scapula with large associated soft tissue component, no large vessel arterial occlusion disease or other acute arterial abnormality. Blood workup showed calcium level of 14.4 . Received calcitonin, zoledronic acid hypercalcemia. 1. Altered mental status/acute encephalopathy: CT with age indeterminate focus of left frontal subcortical ischemia MRI brain unremarkable Echocardiogram with EF of 40-45% with regional wall motion abnormality, PFO Mental status has improved Neurology following 2. UTI: Completed course of ceftriaxone 3. Hypercalcemia: Likely secondary to malignancy Received zoledronic acid, calcitonin, IV fluids Hypercalcemia has resolved 4. Anemia: Status post 2 units of PRBC H&H stable 5. History of metastatic cancer: MRI brain unremarkable Patient follows up with Oncology at [facility] 6.) Cardiomyopathy: Patent foramen ovale Echo showing EF 40-45% with regional wall motion abnormality and PFO with R-->L shunt Cardiology consulted. LE venous doppler negative for DVT so unlikely paradoxical CVA. Metoprolol tartrate started. Maxide stopped and losartan added Due to HoTN and anemia, Plavix stopped. Continue tele monitoring. Continue statin. Verapamil has been stopped Will need home O2 evaluation before discharge Currently on room air 7. History of hypertension: Continue with losartan, metoprolol Verapamil has been stopped 8. Code status: Full 9. DVT prophylaxis: SCDs 9. Disposition: Pending placement. 10. Tachycardia with mild fever will re-evaluate for source of infection. Started on any antibiotics yet. Check chest x-ray and UA but culture x2 Subjective Date/time seen: 04/11/25 12:37 Interval history: Mild fever this a.m.. Feels chilly. Heart rate has jumped up. No urinary complaints no abdominal pain nausea vomiting. Feels short of breath with exertion. Review of Systems Review of Systems: All systems reviewed & are unremarkable except as noted in HPI and below Exam Narrative: Gen -no acute distress Chest -bilateral clear to auscultation CV -tachycardic sinus on telemetry with S1-S2. Abd - soft, NT/ND with positive bowel sounds. Ext - no pedal edema Psych- alert, pleasant and cooperative Skin - Warm and dry. Objective Data Vital Signs Vital Signs: Vital Signs - 24 hr 04/10/25 14:36 04/10/25 14:37 04/10/25 14:37 Temperature 99.4 F Pulse Rate 107 H 95 Respiratory Rate 18 Blood Pressure 117/68 93/54 L 119/66 Pulse Oximetry 96 99 Oxygen Delivery Fraction of Inspired Oxygen 04/10/25 16:00 04/10/25 19:30 04/10/25 20:00 Temperature 99.5 F Pulse Rate 95 85 94 Respiratory Rate 18 Blood Pressure 99/55 L Pulse Oximetry 94 Oxygen Delivery Fraction of Inspired Oxygen 04/10/25 20:00 04/10/25 20:16 04/10/25 20:47 Temperature Pulse Rate 94 93 94 Respiratory Rate 18 Blood Pressure Pulse Oximetry 96 96 Oxygen Delivery Room Air Room Air Fraction of Inspired Oxygen 21 04/11/25 00:00 04/11/25 04:00 04/11/25 05:03 Temperature 97.6 F Pulse Rate 92 76 72 Respiratory Rate 18 Blood Pressure 105/61 Pulse Oximetry 98 Oxygen Delivery Fraction of Inspired Oxygen 04/11/25 07:22 04/11/25 07:26 04/11/25 08:00 Temperature Pulse Rate 98 98 94 Respiratory Rate 15 15 Blood Pressure Pulse Oximetry Oxygen Delivery Fraction of Inspired Oxygen 04/11/25 09:16 04/11/25 10:45 04/11/25 10:59 Temperature 99.8 F H Pulse Rate 130 H 128 H 130 H Respiratory Rate 26 H Blood Pressure 107/80 Pulse Oximetry 96 Oxygen Delivery Fraction of Inspired Oxygen 04/11/25 12:00 Temperature Pulse Rate 108 H Respiratory Rate Blood Pressure Pulse Oximetry Oxygen Delivery Fraction of Inspired Oxygen Intake/Output Intake/Output: Intake & Output 04/08/25 04/09/25 04/10/25 04/11/25 23:59 23:59 23:59 23:59 Intake Total 924 510 360 240 Output Total 400 1000 300 Balance 524 -490 60 240 Meds/Results Medications: Active Medications Generic Name Dose Route Start Last Admin Trade Name Freq PRN Reason Stop Dose Admin Acetaminophen 650 mg 03/29/25 19:45 04/11/25 12:08 Acetaminophen 325 Mg Tablet PO 650 mg Q4H PRN Administration Mild Pain (1-3) or Fever Albuterol 2.5 mg 03/29/25 21:50 Albuterol Sulfate Neb 2.5 Mg/3 Ml Inh INHALATION Q4-6H PRN Shortness Of Breath Albuterol 2 puff 04/03/25 17:11 Albuterol Sulfate (*Sp) Aerosol 1 Puff INHALATION Q6HRT PRN Shortness Of Breath Or Wheezing Atorvastatin Calcium 40 mg 03/30/25 09:00 04/11/25 09:17 Atorvastatin 40 Mg Tablet PO 40 mg DAILY DANIELE Administration Clonazepam 0.5 mg 04/02/25 20:01 04/07/25 21:13 Clonazepam (*Crx) 0.5 Mg Tablet PO 0.5 mg TID PRN Administration anxiety Duloxetine HCl 30 mg 03/30/25 09:00 04/11/25 09:17 Duloxetine Hcl 30 Mg Capsule.Dr PO 30 mg DAILY DANIELE Administration Folic Acid 1 mg 03/30/25 09:00 04/11/25 09:17 Folic Acid 1 Mg Tablet PO 1 mg DAILY DANIELE Administration Heparin Sodium (Beef Lung) 50 units 03/30/25 09:00 04/11/25 09:17 Heparin Flush 50 Units/5 Ml Syringe IV PUSH 50 units QAM DANIELE Administration Heparin Sodium (Beef Lung) 50 units 03/29/25 23:50 Heparin Flush 50 Units/5 Ml Syringe IV PUSH PRN PRN after intermittent infusion Heparin Sodium (Beef Lung) 50 units 03/29/25 23:50 04/05/25 01:38 Heparin Flush 50 Units/5 Ml Syringe IV PUSH 50 units PRN PRN Administration after blood draws Heparin Sodium (Porcine) 500 units 03/29/25 23:50 04/05/25 05:26 Heparin Sodium Lock Flush 500 Units/5 Ml Syringe IV PUSH 500 units PRN PRN Administration see comments below Loratadine 10 mg 03/30/25 09:00 04/11/25 09:16 Loratadine 10 Mg Tablet PO 10 mg QAM DANIELE Administration Losartan Potassium 25 mg 04/02/25 09:00 04/03/25 09:04 Losartan Potassium 25 Mg Tablet PO 25 mg On Hold: 04/04/25 08:20 DAILY DANIELE Administration Menthol/Methyl Salicylate 1 applic 04/06/25 02:01 04/08/25 11:39 Menthol 10% / Methyl Salicylate 15% 57 Gm Tube TOPICAL 1 applic BID PRN Administration Muscle/Joint Pain Metoprolol Tartrate 12.5 mg 04/10/25 09:00 04/11/25 09:16 Metoprolol Tartrate 12.5 Mg Tablet PO 12.5 mg Q12HR DANIELE Administration Midodrine 10 mg 04/03/25 23:20 04/11/25 12:08 Midodrine Hcl 10 Mg Tablet PO 10 mg TID DANIELE Administration Montelukast Sodium 10 mg 03/29/25 21:00 04/10/25 20:17 Montelukast Sodium 10 Mg Tablet PO 10 mg HS DANIELE Administration Pantoprazole Sodium 40 mg 04/07/25 21:00 04/11/25 09:16 Pantoprazole 40 Mg Tablet PO 40 mg Q12HR DANIELE Administration Polyethylene Glycol 17 gm 04/02/25 09:00 04/11/25 07:36 Polyethylene Glycol 3350 17 Gm Powd.Pack PO Not Given QAM DANIELE Fluticasone/Salmeterol 2 puff 03/29/25 20:00 04/11/25 07:23 Fluticasone/Salmeterol 45-21 Mcg Inhaler 1 Puff INHALATION 2 puff Q12HRT DANIELE Administration Senna 17.2 mg 03/30/25 09:00 04/02/25 08:36 Sennosides 8.6 Mg Tablet PO 17.2 mg On Hold: 04/02/25 08:45 BID DANIELE Administration Sodium Chloride 10 ml 03/30/25 06:00 04/11/25 12:08 Central Line Flush IV PUSH 10 ml Q8HR DANIEEL Administration Radiology Results: ITS Impressions Head CT 03/28/25 17:39 Impression: Age-indeterminate focus of left frontal subcortical ischemia. No hemorrhage. MRI recommended Head/Neck CTA 03/29/25 08:51 IMPRESSION: CTA NECK: 1. No ICA stenosis or other acute arterial abnormality. 2. Lytic bony metastatic disease C2, C5. 3. Lytic bony metastatic disease right scapula with large associated soft t issue component. CTA HEAD: 1. No large vessel arterial occlusive disease or other acute arterial abnormality. Brain MRI 03/30/25 15:18 IMPRESSION: 1. Scattered ossific white matter T2 hyperintensity consistent with chronic small vessel ischemic disease. No acute intracranial process. Venous Doppler Study 03/31/25 17:18 IMPRESSION: 1: No lower extremity deep venous thrombosis. Chest X-Ray 04/04/25 11:53 IMPRESSION: 1. Developing interstitial pulmonary edema and/or pneumonitis right lung. 2. Early airspace disease lung base not excluded. Labs Labs: Laboratory Results - last 24 hr 04/11/25 04:18 WBC 9.7 RBC 3.17 L Hgb 9.5 L Hct 29.0 L MCV 91.5 MCH 30.0 MCHC 32.8 RDW 17.3 H Plt Count 269 MPV 9.1 Immature Gran % (Auto) 5.3 H Neut % (Auto) 77.5 H Lymph % (Auto) 6.3 L [place] % (Auto) 10.6 H Eos % (Auto) 0.0 Baso % (Auto) 0.3 Lymph # (Auto) 0.61 L [place] # (Auto) 1.0 H Eos # (Auto) 0.0 Baso # (Auto) 0.0 Abs Immat Gran (auto) 0.51 H Absolute Neuts (auto) 7.5 H Absolute Nucleated RBC 0.000 Nucleated RBC % 0.0 Sodium 133 L Potassium 2.9 L Chloride 103 Carbon Dioxide 23 Anion Gap 7 BUN 14 D Creatinine 0.93 Estim Creat Clear Calc 48 Estimated GFR > 60 Glucose 105 Calcium 9.1 Magnesium 1.7 Total Bilirubin 0.6 AST 118 H ALT 122 H Alkaline Phosphatase 117 Total Protein 5.7 L Albumin 3.1 L
[2025-04-11 14:05] LABS: Add Urine Microscopic? YES; Appearance Urine Cloudy (Clear); Glucose Urine UA Trace mg/dL (Negative); Leukocyte Esterase Ur 2+ LEU/UL (Negative); Need Manual Microscopic Reviewed; Nitrate Urine Negative (Negative); Specific Grav Ur 1.018 (1.001-1.035)
[2025-04-11] MEDS: cefTRIAXone 1 GM in SODIUM CHLORIDE 0.9% IV 50 ML 100 ML IVPB (15:56)
[2025-04-11] MEDS: METOPROLOL TARTRATE 25 MG TABLET PO (16:00)
[2025-04-11] MEDS: MONTELUKAST SODIUM 10 MG TABLET PO (21:09)
[2025-04-11] MEDS: HEPARIN SODIUM LOCK FLUSH 500 UNITS/5 ML SYRINGE IV PUSH (23:05)
[2025-04-12] VITALS (15 sets, daily range): BP systolic 102–118; BP diastolic 47–91; PULSE 74–118; RESP 16–20; TEMP 36.2–38.1; O2SAT 95–98
[2025-04-12 05:47] LABS: Hematocrit 27.9 % (37.0-47.0); Hemoglobin 9.2 g/dL (12.0-15.0); Immature Granulocyte Percent A 3.0 % (0-0.5); Lymphocytes Absolute Auto 0.57 K/mm3 (0.9-3.2); Mean Corpuscular HGB Conc 33.0 g/dl (32-36); Mean Corpuscular Hemoglobin 30.0 pg (26-34); Mean Corpuscular Volume 90.9 fl (80-100); Nucleated Red Blood Cells Absolute Auto 0.000 K/mm3 (0.0-0.012); Nucleated Red Blood Cells Perc 0.0 % (0.0-0.2); Platelet Count Result 283 k/mm3 (150-375); Red Blood Count 3.07 M/mm3 (4.2-5.4); White Blood Count 13.1 K/mm3 (4.5-10.0)
[2025-04-12] MEDS: ACETAMINOPHEN 325 MG TABLET 650 MG PO ×2 (05:53→15:20)
[2025-04-12] MEDS: CENTRAL LINE FLUSH 10 ML IV PUSH ×3 (05:53→20:32)
[2025-04-12 06:13] LABS: Alanine Aminotransferase 103 U/L (6-35); Albumin Level 2.9 g/dL (3.5-5.1); Alkaline Phosphatase 129 U/L (38-126); Anion Gap 10 mmol/L (4-12); Aspartate Amino Transferase 80 U/L (14-36); Bilirubin,Total 0.6 mg/dL (0.2-1.3); Blood Urea Nitrogen 14 mg/dL (7-17); Calcium 9.1 mg/dL (8.4-10.2); Carbon Dioxide 20 mmol/L (22-30); Chloride 100 mmol/L (98-107); Estimated CRCL calculation 50 ml/min; Estimated Glomerular Filt Rate > 60; Glucose 97 mg/dL (65-110); Potassium 3.4 mmol/L (3.4-5.0); Sodium 130 mmol/L (137-145); Total Protein 6.3 g/dL (6.3-8.2)
[2025-04-12 06:14] LABS: Magnesium 1.5 mg/dL (1.6-2.3)
[2025-04-12] MEDS: FLUTICASONE/SALMETEROL 45-21 MCG INHALER 1 PUFF 2 PUFF INHALATION ×2 (08:19→20:21)
[2025-04-12] MEDS: PANTOPRAZOLE 40 MG TABLET PO ×2 (08:54→20:32)
[2025-04-12] MEDS: MIDODRINE HCL 10 MG TABLET PO ×3 (08:54→17:14)
[2025-04-12] MEDS: ATORVASTATIN 40 MG TABLET PO (08:54)
[2025-04-12] MEDS: FOLIC ACID 1 MG TABLET PO (08:54)
[2025-04-12] MEDS: METOPROLOL TARTRATE 25 MG TABLET PO ×2 (08:54→20:32)
[2025-04-12] MEDS: LORATADINE 10 MG TABLET PO (08:55)
[2025-04-12] MEDS: POTASSIUM CHLORIDE 20 MEQ ER TABLET 40 MEQ PO (08:55)
[2025-04-12] MEDS: MAGNESIUM SULF 2 GM/WATER 50ML 2 GM/50 ML BAG IVPB (08:56)
--- NOTE | 2025-04-12 12:27 | PM.IMPN ---
Progress Note: A&P Assessment and Plan (1) Patent foramen ovale with right to left shunt: Code(s): Q21.12 - Patent foramen ovale Status: Acute (2) Cardiomyopathy: Code(s): I42.9 - Cardiomyopathy, unspecified Status: Acute (3) Hypercalcemia of malignancy: Code(s): E83.52 - Hypercalcemia Status: Acute (4) Hypokalemia: Code(s): E87.6 - Hypokalemia Status: Acute (5) Urinary tract infection: Code(s): N39.0 - Urinary tract infection, site not specified Status: Acute (6) Anemia: Code(s): D64.9 - Anemia, unspecified Status: Acute (7) Ovarian cancer: Code(s): C56.9 - Malignant neoplasm of unspecified ovary Status: Acute (8) Altered mental status: Code(s): R41.82 - Altered mental status, unspecified Status: Acute Plan 59-year-old female with past medical history of stage IV ovarian cancer with metastasis presenting with worsening mental status. She had recent clearly experiencing weakness, reduced appetite, slurring speech These symptoms were a significant change from the patient's baseline just days prior. Patient has been treated with chemo, radiation in the past, currently on maintenance therapy with Keytruda. , CT head without contrast showed age indeterminate focus of left frontal subcortical ischemia, no hemorrhage, CTA head and neck last night showed no ICA stenosis or other acute arterial abnormality, lytic bony metastatic disease C2, C5, lytic bony metastatic disease right scapula with large associated soft tissue component, no large vessel arterial occlusion disease or other acute arterial abnormality. Blood workup showed calcium level of 14.4 . Received calcitonin, zoledronic acid hypercalcemia. 1. Altered mental status/acute encephalopathy: CT with age indeterminate focus of left frontal subcortical ischemia MRI brain unremarkable Echocardiogram with EF of 40-45% with regional wall motion abnormality, PFO Mental status has improved Neurology following 2. UTI: Completed course of ceftriaxone However UA positive for UTI again Restarted ceftriaxone 04/11/2025 Follow urine culture 3. Hypercalcemia: Likely secondary to malignancy Received zoledronic acid, calcitonin, IV fluids Hypercalcemia has resolved 4. Anemia: Status post 2 units of PRBC H&H stable 5. History of metastatic cancer: MRI brain unremarkable Patient follows up with Oncology at [facility] 6.) Cardiomyopathy: Patent foramen ovale Echo showing EF 40-45% with regional wall motion abnormality and PFO with R-->L shunt Cardiology consulted. LE venous doppler negative for DVT so unlikely paradoxical CVA. Metoprolol tartrate started. Maxide stopped and losartan added Due to HoTN and anemia, Plavix stopped. Continue tele monitoring. Continue statin. Verapamil has been stopped Will need home O2 evaluation before discharge Currently on room air 7. History of hypertension: Continue with losartan, metoprolol Verapamil has been stopped 8. Code status: Full 9. DVT prophylaxis: SCDs 9. Disposition: Pending placement. 10. Tachycardia with mild fever Re-culture. Chest x-ray negative. UA positive. Blood culture pending. Treat as UTI. With ceftriaxone Subjective Date/time seen: 04/12/25 12:27 Interval history: Feels better today. Heart rate is improved. Remains afebrile. Review of Systems Review of Systems: All systems reviewed & are unremarkable except as noted in HPI and below Exam Narrative: Gen -no acute distress Chest -bilateral clear to auscultation CV - Regular rate and rhythm with S1-S2. Abd - soft, NT/ND with positive bowel sounds. Ext - no pedal edema Psych- alert, pleasant and cooperative Skin - Warm and dry. Objective Data Vital Signs Vital Signs: Vital Signs - 24 hr 04/11/25 15:36 04/11/25 16:00 04/11/25 16:00 Temperature 99.3 F Pulse Rate 97 100 98 Respiratory Rate 18 Blood Pressure 110/59 L Pulse Oximetry 95 Oxygen Delivery Fraction of Inspired Oxygen 04/11/25 17:31 04/11/25 17:35 04/11/25 17:37 Temperature 98.1 F 98.1 F 98.0 F Pulse Rate 99 105 H 116 H Respiratory Rate 18 18 20 Blood Pressure 103/47 L 113/73 126/61 Pulse Oximetry 97 97 95 Oxygen Delivery Fraction of Inspired Oxygen 04/11/25 19:30 04/11/25 19:32 04/11/25 20:00 Temperature Pulse Rate 98 85 85 Respiratory Rate 20 20 20 Blood Pressure Pulse Oximetry 98 98 Oxygen Delivery Room Air Room Air Fraction of Inspired Oxygen 21 21 04/11/25 20:00 04/12/25 00:00 04/12/25 00:00 Temperature 97.2 F L Pulse Rate 74 78 77 Respiratory Rate 18 Blood Pressure 113/60 Pulse Oximetry 96 Oxygen Delivery Fraction of Inspired Oxygen 04/12/25 04:00 04/12/25 08:54 04/12/25 08:55 Temperature Pulse Rate 99 104 H Respiratory Rate Blood Pressure Pulse Oximetry Oxygen Delivery Room Air Fraction of Inspired Oxygen Intake/Output Intake/Output: Intake & Output 04/09/25 04/10/25 04/11/25 04/12/25 23:59 23:59 23:59 23:59 Intake Total 386 463 4463 480 Output Total 1000 300 800 Balance -490 60 830 480 Meds/Results Medications: Active Medications Generic Name Dose Route Start Last Admin Trade Name Freq PRN Reason Stop Dose Admin Acetaminophen 650 mg 03/29/25 19:45 04/12/25 05:53 Acetaminophen 325 Mg Tablet PO 650 mg Q4H PRN Administration Mild Pain (1-3) or Fever Albuterol 2.5 mg 03/29/25 21:50 Albuterol Sulfate Neb 2.5 Mg/3 Ml Inh INHALATION Q4-6H PRN Shortness Of Breath Albuterol 2 puff 04/03/25 17:11 Albuterol Sulfate (*Sp) Aerosol 1 Puff INHALATION Q6HRT PRN Shortness Of Breath Or Wheezing Atorvastatin Calcium 40 mg 03/30/25 09:00 04/12/25 08:54 Atorvastatin 40 Mg Tablet PO 40 mg DAILY DANIELE Administration Clonazepam 0.5 mg 04/02/25 20:01 04/07/25 21:13 Clonazepam (*Crx) 0.5 Mg Tablet PO 0.5 mg TID PRN Administration anxiety Duloxetine HCl 30 mg 03/30/25 09:00 04/12/25 08:54 Duloxetine Hcl 30 Mg Capsule.Dr PO 30 mg DAILY DANIELE Administration Folic Acid 1 mg 03/30/25 09:00 04/12/25 08:54 Folic Acid 1 Mg Tablet PO 1 mg DAILY DANIELE Administration Heparin Sodium (Beef Lung) 50 units 03/30/25 09:00 04/12/25 10:29 Heparin Flush 50 Units/5 Ml Syringe IV PUSH 50 units QAM DANIELE Administration Heparin Sodium (Beef Lung) 50 units 03/29/25 23:50 Heparin Flush 50 Units/5 Ml Syringe IV PUSH PRN PRN after intermittent infusion Heparin Sodium (Beef Lung) 50 units 03/29/25 23:50 04/05/25 01:38 Heparin Flush 50 Units/5 Ml Syringe IV PUSH 50 units PRN PRN Administration after blood draws Heparin Sodium (Porcine) 500 units 03/29/25 23:50 04/11/25 23:05 Heparin Sodium Lock Flush 500 Units/5 Ml Syringe IV PUSH 500 units PRN PRN Administration see comments below Ceftriaxone Sodium 1 gm/ 50 mls @ 100 mls/hr 04/11/25 15:00 04/11/25 16:26 Sodium Chloride IVPB Infused Q24H DANIELE Infusion Loratadine 10 mg 03/30/25 09:00 04/12/25 08:55 Loratadine 10 Mg Tablet PO 10 mg QAM DANIELE Administration Losartan Potassium 25 mg 04/02/25 09:00 04/03/25 09:04 Losartan Potassium 25 Mg Tablet PO 25 mg On Hold: 04/04/25 08:20 DAILY DANIELE Administration Menthol/Methyl Salicylate 1 applic 04/06/25 02:01 04/08/25 11:39 Menthol 10% / Methyl Salicylate 15% 57 Gm Tube TOPICAL 1 applic BID PRN Administration Muscle/Joint Pain Metoprolol Tartrate 25 mg 04/11/25 21:00 04/12/25 08:54 Metoprolol Tartrate 25 Mg Tablet PO 25 mg Q12HR DANIELE Administration Midodrine 10 mg 04/03/25 23:20 04/12/25 12:14 Midodrine Hcl 10 Mg Tablet PO 10 mg TID DANIELE Administration Miscellaneous Information 1 each 04/12/25 00:01 Please Renew Clonazepam. Per [employer] Procedure, It Will Discontinue If Not Renewed XX 05/12/25 00:00 CLARIFY DANIELE Montelukast Sodium 10 mg 03/29/25 21:00 04/11/25 21:09 Montelukast Sodium 10 Mg Tablet PO 10 mg HS DANIELE Administration Pantoprazole Sodium 40 mg 04/07/25 21:00 04/12/25 08:54 Pantoprazole 40 Mg Tablet PO 40 mg Q12HR DANIELE Administration Polyethylene Glycol 17 gm 04/02/25 09:00 04/12/25 08:56 Polyethylene Glycol 3350 17 Gm Powd.Pack PO Not Given QAM DANIELE Fluticasone/Salmeterol 2 puff 03/29/25 20:00 04/12/25 08:19 Fluticasone/Salmeterol 45-21 Mcg Inhaler 1 Puff INHALATION 2 puff Q12HRT DANILEE Administration Senna 17.2 mg 03/30/25 09:00 04/02/25 08:36 Sennosides 8.6 Mg Tablet PO 17.2 mg On Hold: 04/02/25 08:45 BID DANIELE Administration Sodium Chloride 10 ml 03/30/25 06:00 04/12/25 05:53 Central Line Flush IV PUSH 10 ml Q8HR DANIELE Administration Radiology Results: ITS Impressions Head CT 03/28/25 17:39 Impression: Age-indeterminate focus of left frontal subcortical ischemia. No hemorrhage. MRI recommended Head/Neck CTA 03/29/25 08:51 IMPRESSION: CTA NECK: 1. No ICA stenosis or other acute arterial abnormality. 2. Lytic bony metastatic disease C2, C5. 3. Lytic bony metastatic disease right scapula with large associated soft tissue component. CTA HEAD: 1. No large vessel arterial occlusive disease or other acute arterial abnormality. Brain MRI 03/30/25 15:18 IMPRESSION: 1. Scattered ossific white matter T2 hyperintensity consistent with chronic small vessel ischemic disease. No acute intracranial process. Venous Doppler Study 03/31/25 17:18 IMPRESSION: 1: No lower extremity deep venous thrombosis. Chest X-Ray 04/11/25 14:06 Impression: No acute cardiopulmonary abnormality. Shoulder X-Ray 04/11/25 15:25 Impression: No acute fracture or malalignment. Labs Labs: Laboratory Results - last 24 hr 04/11/25 04/12/25 13:43 05:35 WBC 13.1 H RBC 3.07 L Hgb 9.2 L Hct 27.9 L MCV 90.9 MCH 30.0 MCHC 33.0 RDW 17.2 H Plt Count 283 MPV 9.0 Immature Gran % (Auto) 3.0 H Neut % (Auto) 83.4 H Lymph % (Auto) 4.4 L [place] % (Auto) 8.7 H Eos % (Auto) 0.2 Baso % (Auto) 0.3 Lymph # (Auto) 0.57 L [place] # (Auto) 1.1 H Eos # (Auto) 0.0 Baso # (Auto) 0.0 Abs Immat Gran (auto) 0.39 H Absolute Neuts (auto) 10.9 H Absolute Nucleated RBC 0.000 Nucleated RBC % 0.0 Sodium 130 L Potassium 3.4 Chloride 100 Carbon Dioxide 20 L Anion Gap 10 BUN 14 Creatinine 0.90 Estim Creat Clear Calc 50 Estimated GFR > 60 Glucose 97 Calcium 9.1 Magnesium 1.5 L Total Bilirubin 0.6 AST 80 H ALT 103 H Alkaline Phosphatase 129 H Total Protein 6.3 Albumin 2.9 L Urine Color Yellow Urine Appearance Cloudy H Urine pH 6.5 Ur Specific [place] 1.018 Urine Protein 2+ H Urine Glucose (UA) Trace H Urine Ketones Negative Ur Blood (Man) Non-hemolyzed trace H Urine Nitrate Negative Urine Bilirubin Negative Urine Urobilinogen 1.0 Add Ur Microanalysis Reviewed Leukocyte Esterase Rfl 2+ H Urine RBC 0-2 Urine WBC 51-100 H Ur Squamous Epith Cells Few Urine Bacteria 1+ H Urine Casts 3-5
[2025-04-12] MEDS: cefTRIAXone 1 GM in SODIUM CHLORIDE 0.9% IV 50 ML 100 ML IVPB (14:13)
[2025-04-12] MEDS: MONTELUKAST SODIUM 10 MG TABLET PO (20:31)
[2025-04-12 23:08] LABS: Osmolality, Urine 400 mOsmol/kg (.)
[2025-04-13] VITALS (16 sets, daily range): BP systolic 103–119; BP diastolic 55–82; PULSE 78–135; RESP 16–20; TEMP 36.4–37.6; O2SAT 91–99
[2025-04-13] MEDS: ACETAMINOPHEN 325 MG TABLET 650 MG PO ×2 (02:29→14:01)
[2025-04-13] MEDS: CENTRAL LINE FLUSH 10 ML IV PUSH ×3 (04:19→20:07)
[2025-04-13 04:43] LABS: Hematocrit 28.1 % (37.0-47.0); Hemoglobin 9.0 g/dL (12.0-15.0); Immature Granulocyte Percent A 2.9 % (0-0.5); Lymphocytes Absolute Auto 0.50 K/mm3 (0.9-3.2); Mean Corpuscular HGB Conc 32.0 g/dl (32-36); Mean Corpuscular Hemoglobin 29.5 pg (26-34); Mean Corpuscular Volume 92.1 fl (80-100); Nucleated Red Blood Cells Absolute Auto 0.000 K/mm3 (0.0-0.012); Nucleated Red Blood Cells Perc 0.0 % (0.0-0.2); Platelet Count Result 322 k/mm3 (150-375); Red Blood Count 3.05 M/mm3 (4.2-5.4); White Blood Count 14.3 K/mm3 (4.5-10.0)
[2025-04-13 04:51] LABS: Alanine Aminotransferase 101 U/L (6-35); Albumin Level 2.9 g/dL (3.5-5.1); Alkaline Phosphatase 140 U/L (38-126); Anion Gap 9 mmol/L (4-12); Aspartate Amino Transferase 77 U/L (14-36); Bilirubin,Total 0.4 mg/dL (0.2-1.3); Blood Urea Nitrogen 13 mg/dL (7-17); Calcium 9.0 mg/dL (8.4-10.2); Carbon Dioxide 19 mmol/L (22-30); Chloride 101 mmol/L (98-107); Estimated CRCL calculation 55 ml/min; Estimated Glomerular Filt Rate > 60; Glucose 119 mg/dL (65-110); Magnesium 1.9 mg/dL (1.6-2.3); Potassium 3.6 mmol/L (3.4-5.0); Sodium 129 mmol/L (137-145); Total Protein 6.3 g/dL (6.3-8.2)
[2025-04-13 05:09] LABS: Hypochromasia 1+
[2025-04-13 05:10] LABS: Anisocytosis 1+; Microcytosis 1+ (NORMAL)
[2025-04-13 05:11] LABS: Acanthocytes 1+; Ovalocytes Occasional; Schistocytes None Seen
[2025-04-13] MEDS: FLUTICASONE/SALMETEROL 45-21 MCG INHALER 1 PUFF 2 PUFF INHALATION ×2 (07:30→19:51)
[2025-04-13] MEDS: METOPROLOL TARTRATE 25 MG TABLET PO ×2 (09:29→20:06)
[2025-04-13] MEDS: FOLIC ACID 1 MG TABLET PO (09:29)
[2025-04-13] MEDS: MIDODRINE HCL 10 MG TABLET PO ×3 (09:30→17:39)
[2025-04-13] MEDS: PANTOPRAZOLE 40 MG TABLET PO ×2 (09:30→20:06)
[2025-04-13] MEDS: LORATADINE 10 MG TABLET PO (09:30)
[2025-04-13] MEDS: ATORVASTATIN 40 MG TABLET PO (09:30)
--- NOTE | 2025-04-13 13:14 | PM.IMPN ---
Progress Note: A&P Assessment and Plan (1) Patent foramen ovale with right to left shunt: Code(s): Q21.12 - Patent foramen ovale Status: Acute (2) Cardiomyopathy: Code(s): I42.9 - Cardiomyopathy, unspecified Status: Acute (3) Hypercalcemia of malignancy: Code(s): E83.52 - Hypercalcemia Status: Acute (4) Hypokalemia: Code(s): E87.6 - Hypokalemia Status: Acute (5) Urinary tract infection: Code(s): N39.0 - Urinary tract infection, site not specified Status: Acute (6) Anemia: Code(s): D64.9 - Anemia, unspecified Status: Acute (7) Ovarian cancer: Code(s): C56.9 - Malignant neoplasm of unspecified ovary Status: Acute (8) Altered mental status: Code(s): R41.82 - Altered mental status, unspecified Status: Acute Plan 59-year-old female with past medical history of stage IV ovarian cancer with metastasis presenting with worsening mental status. She had recent clearly experiencing weakness, reduced appetite, slurring speech These symptoms were a significant change from the patient's baseline just days prior. Patient has been treated with chemo, radiation in the past, currently on maintenance therapy with Keytruda. , CT head without contrast showed age indeterminate focus of left frontal subcortical ischemia, no hemorrhage, CTA head and neck last night showed no ICA stenosis or other acute arterial abnormality, lytic bony metastatic disease C2, C5, lytic bony metastatic disease right scapula with large associated soft tissue component, no large vessel arterial occlusion disease or other acute arterial abnormality. Blood workup showed calcium level of 14.4 . Received calcitonin, zoledronic acid hypercalcemia. 1. Altered mental status/acute encephalopathy: CT with age indeterminate focus of left frontal subcortical ischemia MRI brain unremarkable Echocardiogram with EF of 40-45% with regional wall motion abnormality, PFO Mental status has improved Neurology following 2. UTI: Completed course of ceftriaxone However UA positive for UTI again Restarted ceftriaxone 04/11/2025 Follow urine culture Febrile again 04/12/2025. Switch ceftriaxone to cefepime Vaginitis will give a dose fluconazole 3. Hypercalcemia: Likely secondary to malignancy Received zoledronic acid, calcitonin, IV fluids Hypercalcemia has resolved 4. Anemia: Status post 2 units of PRBC H&H stable 5. History of metastatic cancer: MRI brain unremarkable Patient follows up with Oncology at [facility] 6.) Cardiomyopathy: Patent foramen ovale Echo showing EF 40-45% with regional wall motion abnormality and PFO with R-->L shunt Cardiology consulted. LE venous doppler negative for DVT so unlikely paradoxical CVA. Metoprolol tartrate started. Maxide stopped and losartan added Due to HoTN and anemia, Plavix stopped. Continue tele monitoring. Continue statin. Verapamil has been stopped Will need home O2 evaluation before discharge Currently on room air 7. History of hypertension: Continue with losartan, metoprolol Verapamil has been stopped 8. Code status: Full 9. DVT prophylaxis: SCDs 9. Disposition: Pending placement. 10. Tachycardia with mild fever Re-culture. Chest x-ray negative. UA positive. Blood culture pending. Treat as UTI. With ceftriaxone Subjective Date/time seen: 04/13/25 13:14 Interval history: no overnight events. Patient gets a little tachy with exertion. Feels cold. Did have spike a fever yesterday. Review of Systems Review of Systems: All systems reviewed & are unremarkable except as noted in HPI and below Exam Narrative: Gen -no acute distress Chest -bilateral clear to auscultation CV - Regular rate and rhythm with S1-S2. Abd - soft, NT/ND with positive bowel sounds. Ext - no pedal edema Psych- alert, pleasant and cooperative Skin - Warm and dry. Objective Data Vital Signs Vital Signs: Vital Signs - 24 hr 04/12/25 14:58 04/12/25 14:58 04/12/25 15:01 Temperature 100.3 F H 100.3 F H 100.6 F H Pulse Rate 93 93 109 H Pulse Rate [With Activity During Therapy Session] Respiratory Rate 18 18 18 Blood Pressure 111/56 L 111/56 L 103/69 Pulse Oximetry 98 98 95 Oxygen Delivery Fraction of Inspired Oxygen 04/12/25 15:02 04/12/25 15:20 04/12/25 16:00 Temperature 100.1 F H 100.5 F H Pulse Rate 118 H 93 Pulse Rate [With Activity During Therapy Session] Respiratory Rate 20 Blood Pressure 118/91 H Pulse Oximetry 97 Oxygen Delivery Fraction of Inspired Oxygen 04/12/25 16:20 04/12/25 19:42 04/12/25 20:00 Temperature 99.3 F 97.3 F L Pulse Rate 78 84 Pulse Rate [With Activity During Therapy Session] Respiratory Rate 16 Blood Pressure 102/47 L Pulse Oximetry 98 Oxygen Delivery Fraction of Inspired Oxygen 04/12/25 20:21 04/12/25 20:32 04/13/25 00:00 Temperature Pulse Rate 81 74 83 Pulse Rate [With Activity During Therapy Session] Respiratory Rate Blood Pressure Pulse Oximetry 96 Oxygen Delivery Room Air Fraction of Inspired Oxygen 21 04/13/25 04:00 04/13/25 05:57 04/13/25 07:33 Temperature 97.5 F L Pulse Rate 78 88 93 Pulse Rate [With Activity During Therapy Session] Respiratory Rate 16 17 Blood Pressure 104/64 Pulse Oximetry 91 Oxygen Delivery Fraction of Inspired Oxygen 04/13/25 07:33 04/13/25 07:54 04/13/25 08:00 Temperature Pulse Rate 93 88 Pulse Rate [With Activity During Therapy Session] 135 H Respiratory Rate Blood Pressure 103/59 L Pulse Oximetry 96 Oxygen Delivery Room Air Room Air Fraction of Inspired Oxygen 04/13/25 08:00 04/13/25 08:33 04/13/25 08:33 Temperature Pulse Rate 119 H 109 H 134 H Pulse Rate [With Activity During Therapy Session] Respiratory Rate Blood Pressure 111/82 109/80 Pulse Oximetry Oxygen Delivery Fraction of Inspired Oxygen 04/13/25 09:29 04/13/25 09:30 Temperature Pulse Rate 104 H Pulse Rate [With Activity During Therapy Session] Respiratory Rate Blood Pressure Pulse Oximetry Oxygen Delivery Room Air Fraction of Inspired Oxygen Intake/Output Intake/Output: Intake & Output 04/10/25 04/11/25 04/12/25 04/13/25 23:59 23:59 23:59 23:59 Intake Total 360 1630 1320 520 Output Total 300 800 100 500 Balance 60 830 1220 20 Meds/Results Medications: Active Medications Generic Name Dose Route Start Last Admin Trade Name Freq PRN Reason Stop Dose Admin Acetaminophen 650 mg 03/29/25 19:45 04/13/25 02:29 Acetaminophen 325 Mg Tablet PO 650 mg Q4H PRN Administration Mild Pain (1-3) or Fever Albuterol 2.5 mg 03/29/25 21:50 Albuterol Sulfate Neb 2.5 Mg/3 Ml Inh INHALATION Q4-6H PRN Shortness Of Breath Albuterol 2 puff 04/03/25 17:11 Albuterol Sulfate (*Sp) Aerosol 1 Puff INHALATION Q6HRT PRN Shortness Of Breath Or Wheezing Atorvastatin Calcium 40 mg 03/30/25 09:00 04/13/25 09:30 Atorvastatin 40 Mg Tablet PO 40 mg DAILY DANIELE Administration Duloxetine HCl 30 mg 03/30/25 09:00 04/13/25 09:30 Duloxetine Hcl 30 Mg Capsule.Dr PO 30 mg DAILY DANIELE Administration Folic Acid 1 mg 03/30/25 09:00 04/13/25 09:29 Folic Acid 1 Mg Tablet PO 1 mg DAILY DANIELE Administration Heparin Sodium (Beef Lung) 50 units 03/30/25 09:00 04/13/25 09:30 Heparin Flush 50 Units/5 Ml Syringe IV PUSH 50 units QAM DANIELE Administration Heparin Sodium (Beef Lung) 50 units 03/29/25 23:50 Heparin Flush 50 Units/5 Ml Syringe IV PUSH PRN PRN after intermittent infusion Heparin Sodium (Beef Lung) 50 units 03/29/25 23:50 04/13/25 04:20 Heparin Flush 50 Units/5 Ml Syringe IV PUSH 50 units PRN PRN Administration after blood draws Heparin Sodium (Porcine) 500 units 03/29/25 23:50 04/11/25 23:05 Heparin Sodium Lock Flush 500 Units/5 Ml Syringe IV PUSH 500 units PRN PRN Administration see comments below Ceftriaxone Sodium 1 gm/ 50 mls @ 100 mls/hr 04/11/25 15:00 04/12/25 14:43 Sodium Chloride IVPB Infused Q24H DANIELE Infusion Loratadine 10 mg 03/30/25 09:00 04/13/25 09:30 Loratadine 10 Mg Tablet PO 10 mg QAM DANIELE Administration Losartan Potassium 25 mg 04/02/25 09:00 04/03/25 09:04 Losartan Potassium 25 Mg Tablet PO 25 mg On Hold: 04/04/25 08:20 DAILY DANIELE Administration Menthol/Methyl Salicylate 1 applic 04/06/25 02:01 04/08/25 11:39 Menthol 10% / Methyl Salicylate 15% 57 Gm Tube TOPICAL 1 applic BID PRN Administration Muscle/Joint Pain Metoprolol Tartrate 25 mg 04/11/25 21:00 04/13/25 09:29 Metoprolol Tartrate 25 Mg Tablet PO 25 mg Q12HR DANIELE Administration Midodrine 10 mg 04/03/25 23:20 04/13/25 09:30 Midodrine Hcl 10 Mg Tablet PO 10 mg TID DANIELE Administration Miscellaneous Information 1 each 04/12/25 00:01 Please Renew Clonazepam. Per [employer] Procedure, It Will Discontinue If Not Renewed XX 05/12/25 00:00 CLARIFY DANIELE Montelukast Sodium 10 mg 03/29/25 21:00 04/12/25 20:31 Montelukast Sodium 10 Mg Tablet PO 10 mg HS DANIELE Administration Pantoprazole Sodium 40 mg 04/07/25 21:00 04/13/25 09:30 Pantoprazole 40 Mg Tablet PO 40 mg Q12HR DANIELE Administration Polyethylene Glycol 17 gm 04/02/25 09:00 04/13/25 09:31 Polyethylene Glycol 3350 17 Gm Powd.Pack PO Not Given QAM DANIELE Fluticasone/Salmeterol 2 puff 03/29/25 20:00 04/13/25 07:30 Fluticasone/Salmeterol 45-21 Mcg Inhaler 1 Puff INHALATION 2 puff Q12HRT DANIELE Administration Senna 17.2 mg 03/30/25 09:00 04/02/25 08:36 Sennosides 8.6 Mg Tablet PO 17.2 mg On Hold: 04/02/25 08:45 BID DANIELE Administration Sodium Chloride 10 ml 03/30/25 06:00 04/13/25 04:19 Central Line Flush IV PUSH 10 ml Q8HR DANIELE Administration Radiology Results: ITS Impressions Head CT 03/28/25 17:39 Impression: Age-indeterminate focus of left frontal subcortical ischemia. No hemorrhage. MRI recommended Head/Neck CTA 03/29/25 08:51 IMPRESSION: CTA NECK: 1. No ICA stenosis or other acute arterial abnormality. 2. Lytic bony metastatic disease C2, C5. 3. Lytic bony metastatic disease right scapula with large associated soft tissue component. CTA HEAD: 1. No large vessel arterial occlusive disease or other acute arterial abnormality. Brain MRI 03/30/25 15:18 IMPRESSION: 1. Scattered ossific white matter T2 hyperintensity consistent with chronic small vessel ischemic disease. No acute intracranial process. Venous Doppler Study 03/31/25 17:18 IMPRESSION: 1: No lower extremity deep venous thrombosis. Chest X-Ray 04/11/25 14:06 Impression: No acute cardiopulmonary abnormality. Shoulder X-Ray 04/11/25 15:25 Impression: No acute fracture or malalignment. Labs Labs: Laboratory Results - last 24 hr 03/31/25 04/13/25 17:09 04:22 WBC 14.3 H RBC 3.05 L Hgb 9.0 L Hct 28.1 L MCV 92.1 MCH 29.5 MCHC 32.0 RDW 17.4 H Plt Count 322 MPV 9.4 Immature Gran % (Auto) 2.9 H Neut % (Auto) 83.8 H Lymph % (Auto) 3.5 L Holmes % (Auto) 8.8 H Eos % (Auto) 0.6 Baso % (Auto) 0.4 Lymph # (Auto) 0.50 L Holmes # (Auto) 1.3 H Eos # (Auto) 0.1 Baso # (Auto) 0.1 Abs Immat Gran (auto) 0.41 H Absolute Neuts (auto) 12.0 H Absolute Nucleated RBC 0.000 Band Neutrophils % Not Reportable Nucleated RBC % 0.0 Platelet Estimate Adequate Hypochromasia 1+ Anisocytosis 1+ Microcytosis 1+ Ovalocytes Occasional Acanthocytes (Spur) 1+ Schistocytes None seen Sodium 129 L Potassium 3.6 Chloride 101 Carbon Dioxide 19 L Anion Gap 9 BUN 13 Creatinine 0.81 Estim Creat Clear Calc 55 Estimated GFR > 60 Glucose 119 H Calcium 9.0 Magnesium 1.9 Total Bilirubin 0.4 AST 77 H ALT 101 H Alkaline Phosphatase 140 H Total Protein 6.3 Albumin 2.9 L Urine Osmolality 400
[2025-04-13] MEDS: FLUCONAZOLE 150 MG TABLET PO (14:01)
[2025-04-13] MEDS: CEFEPIME 2 GM in SODIUM CHLORIDE 0.9% IV 50 ML 100 ML IVPB ×2 (14:01→20:07)
[2025-04-13] MEDS: MONTELUKAST SODIUM 10 MG TABLET PO (20:06)
[2025-04-14] VITALS (19 sets, daily range): BP systolic 110–137; BP diastolic 56–123; PULSE 84–123; RESP 14–20; TEMP 36.8–37.1; O2SAT 94–99
[2025-04-14] MEDS: CENTRAL LINE FLUSH 10 ML IV PUSH ×3 (03:56→20:25)
[2025-04-14] MEDS: ACETAMINOPHEN 325 MG TABLET 650 MG PO ×2 (03:56→19:57)
[2025-04-14 04:12] LABS: Hematocrit 23.8 % (37.0-47.0); Hemoglobin 7.6 g/dL (12.0-15.0); Immature Granulocyte Percent A 3.0 % (0-0.5); Lymphocytes Absolute Auto 0.52 K/mm3 (0.9-3.2); Mean Corpuscular HGB Conc 31.9 g/dl (32-36); Mean Corpuscular Hemoglobin 29.7 pg (26-34); Mean Corpuscular Volume 93.0 fl (80-100); Nucleated Red Blood Cells Absolute Auto 0.000 K/mm3 (0.0-0.012); Nucleated Red Blood Cells Perc 0.0 % (0.0-0.2); Platelet Count Result 298 k/mm3 (150-375); Red Blood Count 2.56 M/mm3 (4.2-5.4); White Blood Count 13.8 K/mm3 (4.5-10.0)
[2025-04-14 04:30] LABS: Alanine Aminotransferase 79 U/L (6-35); Albumin Level 2.9 g/dL (3.5-5.1); Alkaline Phosphatase 126 U/L (38-126); Anion Gap 8 mmol/L (4-12); Aspartate Amino Transferase 49 U/L (14-36); Bilirubin,Total 0.6 mg/dL (0.2-1.3); Blood Urea Nitrogen 14 mg/dL (7-17); Calcium 8.8 mg/dL (8.4-10.2); Carbon Dioxide 19 mmol/L (22-30); Chloride 101 mmol/L (98-107); Estimated CRCL calculation 54 ml/min; Estimated Glomerular Filt Rate > 60; Glucose 96 mg/dL (65-110); Magnesium 1.6 mg/dL (1.6-2.3); Potassium 3.2 mmol/L (3.4-5.0); Sodium 128 mmol/L (137-145); Total Protein 6.3 g/dL (6.3-8.2)
[2025-04-14 04:55] LABS: Burr Cells 2+; Schistocytes None Seen
[2025-04-14] MEDS: FLUTICASONE/SALMETEROL 45-21 MCG INHALER 1 PUFF 2 PUFF INHALATION ×2 (07:58→19:32)
[2025-04-14] MEDS: ATORVASTATIN 40 MG TABLET PO (08:27)
[2025-04-14] MEDS: FOLIC ACID 1 MG TABLET PO (08:28)
[2025-04-14] MEDS: POTASSIUM CHLORIDE 20 MEQ ER TABLET 40 MEQ PO ×2 (08:28→12:13)
[2025-04-14] MEDS: LORATADINE 10 MG TABLET PO (08:28)
[2025-04-14] MEDS: PANTOPRAZOLE 40 MG TABLET PO ×2 (08:28→19:57)
[2025-04-14] MEDS: MIDODRINE HCL 10 MG TABLET PO ×3 (08:28→16:22)
[2025-04-14] MEDS: METOPROLOL TARTRATE 25 MG TABLET PO ×2 (08:29→19:58)
[2025-04-14] MEDS: CEFEPIME 2 GM in SODIUM CHLORIDE 0.9% IV 50 ML 100 ML IVPB ×2 (08:30→20:24)
--- NOTE | 2025-04-14 09:07 | PCPTNOTE ---
Patient refused treatment this session due to having a migraine headache. Patient states she feels nauseated when she moves.
[2025-04-14] MEDS: MAGNESIUM SULF 2 GM/WATER 50ML 2 GM/50 ML BAG IVPB (12:12)
--- NOTE | 2025-04-14 14:43 | P.PNIM_ITS ---
Progress Note: A&P Assessment and Plan (1) Patent foramen ovale with right to left shunt: Code(s): Q21.12 - Patent foramen ovale Status: Acute (2) Cardiomyopathy: Code(s): I42.9 - Cardiomyopathy, unspecified Status: Acute (3) Hypercalcemia of malignancy: Code(s): E83.52 - Hypercalcemia Status: Acute (4) Hypokalemia: Code(s): E87.6 - Hypokalemia Status: Acute (5) Urinary tract infection: Code(s): N39.0 - Urinary tract infection, site not specified Status: Acute (6) Anemia: Code(s): D64.9 - Anemia, unspecified Status: Acute (7) Ovarian cancer: Code(s): C56.9 - Malignant neoplasm of unspecified ovary Status: Acute (8) Altered mental status: Code(s): R41.82 - Altered mental status, unspecified Status: Acute Plan 59-year-old female with past medical history of stage IV ovarian cancer with metastasis presenting with worsening mental status. She had recent clearly experiencing weakness, reduced appetite, slurring speech These symptoms were a significant change from the patient's baseline just days prior. Patient has been treated with chemo, radiation in the past, currently on maintenance therapy with Keytruda. , CT head without contrast showed age indeterminate focus of left frontal subcortical ischemia, no hemorrhage, CTA head and neck last night showed no ICA stenosis or other acute arterial abnormality, lytic bony metastatic disease C2, C5, lytic bony metastatic disease right scapula with large associated soft tissue component, no large vessel arterial occlusion disease or other acute arterial abnormality. Blood workup showed calcium level of 14.4 . Received calcitonin, zoledronic acid hypercalcemia. 1. Altered mental status/acute encephalopathy: CT with age indeterminate focus of left frontal subcortical ischemia MRI brain unremarkable Echocardiogram with EF of 40-45% with regional wall motion abnormality, PFO Mental status has improved Neurology following 2. UTI: Completed course of ceftriaxone However UA positive for UTI again Restarted ceftriaxone 04/11/2025 Follow urine culture Febrile again 04/12/2025. Switch ceftriaxone to cefepime Follow urine culture # Vaginitis received a dose of fluconazole 04/13/2025 3. Hypercalcemia: Likely secondary to malignancy Received zoledronic acid, calcitonin, IV fluids Hypercalcemia has resolved 4. Anemia: Status post 2 units of PRBC H&H stable H&H dropped today to 7.6. No signs of bleeding. Will recheck this evening and monitor 5. History of metastatic ovarian cancer: MRI brain unremarkable Patient follows up with Oncology at [facility] 6.) Cardiomyopathy: Patent foramen ovale Echo showing EF 40-45% with regional wall motion abnormality and PFO with R-->L shunt Cardiology consulted. LE venous doppler negative for DVT so unlikely paradoxical CVA. Metoprolol tartrate started. Maxide stopped and losartan added Due to HoTN and anemia, Plavix stopped. Continue tele monitoring. Continue statin. Verapamil has been stopped Will need home O2 evaluation before discharge Currently on room air 7. History of hypertension: Continue with losartan, metoprolol Verapamil has been stopped 8. Code status: Full 9. DVT prophylaxis: SCDs 9. Disposition: Pending placement. 10. Tachycardia with mild fever Re-culture. Chest x-ray negative. UA positive. Blood culture pending. Treat as UTI. With ceftriaxone Subjective Date/time seen: 04/14/25 14:43 Interval history: no overnight events. Complains of headache. Remains afebrile. Labs reviewed. Review of Systems Review of Systems: All systems reviewed & are unremarkable except as noted in HPI and below Exam Narrative: Gen -no acute distress Chest -bilateral clear to auscultation CV - Regular rate and rhythm with S1-S2. Abd - soft, NT/ND with positive bowel sounds. Ext - no pedal edema Psych- alert, pleasant and cooperative Skin - Warm and dry. Objective Data Vital Signs Vital Signs: Vital Signs - 24 hr 04/13/25 16:00 04/13/25 19:42 04/13/25 19:53 Temperature 98.0 F Pulse Rate 93 91 90 Respiratory Rate 20 16 Blood Pressure 112/55 L Pulse Oximetry 99 Oxygen Delivery Fraction of Inspired Oxygen 04/13/25 19:54 04/13/25 20:00 04/13/25 20:00 Temperature Pulse Rate 100 Respiratory Rate Blood Pressure Pulse Oximetry 94 Oxygen Delivery Room Air Room Air Fraction of Inspired Oxygen 04/13/25 20:06 04/14/25 00:00 04/14/25 04:00 Temperature Pulse Rate 100 91 91 Respiratory Rate Blood Pressure Pulse Oximetry Oxygen Delivery Fraction of Inspired Oxygen 04/14/25 08:00 04/14/25 08:01 04/14/25 08:03 Temperature 98.3 F Pulse Rate 96 94 93 Respiratory Rate 20 14 14 Blood Pressure 110/56 L Pulse Oximetry 96 96 Oxygen Delivery Room Air Fraction of Inspired Oxygen 21 04/14/25 08:03 04/14/25 08:29 04/14/25 09:15 Temperature Pulse Rate 93 99 110 H Respiratory Rate Blood Pressure 137/123 H Pulse Oximetry Oxygen Delivery Fraction of Inspired Oxygen 04/14/25 09:19 04/14/25 09:23 04/14/25 12:03 Temperature Pulse Rate 111 H 119 H 97 Respiratory Rate Blood Pressure 129/66 132/77 Pulse Oximetry Oxygen Delivery Fraction of Inspired Oxygen Intake/Output Intake/Output: Intake & Output 04/11/25 04/12/25 04/13/25 04/14/25 23:59 23:59 23:59 23:59 Intake Total 1630 1320 860 800 Output Total 800 100 500 Balance 830 1220 360 800 Meds/Results Medications: Active Medications Generic Name Dose Route Start Last Admin Trade Name Freq PRN Reason Stop Dose Admin Acetaminophen 650 mg 03/29/25 19:45 04/14/25 03:56 Acetaminophen 325 Mg Tablet PO 650 mg Q4H PRN Administration Mild Pain (1-3) or Fever Albuterol 2.5 mg 03/29/25 21:50 Albuterol Sulfate Neb 2.5 Mg/3 Ml Inh INHALATION Q4-6H PRN Shortness Of Breath Albuterol 2 puff 04/03/25 17:11 Albuterol Sulfate (*Sp) Aerosol 1 Puff INHALATION Q6HRT PRN Shortness Of Breath Or Wheezing Atorvastatin Calcium 40 mg 03/30/25 09:00 04/14/25 08:27 Atorvastatin 40 Mg Tablet PO 40 mg DAILY DANIELE Administration Duloxetine HCl 60 mg 04/14/25 09:00 04/14/25 08:28 Duloxetine Hcl 30 Mg Capsule.Dr PO 60 mg DAILY DANIELE Administration Folic Acid 1 mg 03/30/25 09:00 04/14/25 08:28 Folic Acid 1 Mg Tablet PO 1 mg DAILY DANIELE Administration Heparin Sodium (Beef Lung) 50 units 03/30/25 09:00 04/14/25 09:02 Heparin Flush 50 Units/5 Ml Syringe IV PUSH 50 units QAM DANIELE Administration Heparin Sodium (Beef Lung) 50 units 03/29/25 23:50 Heparin Flush 50 Units/5 Ml Syringe IV PUSH PRN PRN after intermittent infusion Heparin Sodium (Beef Lung) 50 units 03/29/25 23:50 04/13/25 04:20 Heparin Flush 50 Units/5 Ml Syringe IV PUSH 50 units PRN PRN Administration after blood draws Heparin Sodium (Porcine) 500 units 03/29/25 23:50 04/11/25 23:05 Heparin Sodium Lock Flush 500 Units/5 Ml Syringe IV PUSH 500 units PRN PRN Administration see comments below Cefepime HCl 2 gm/ Sodium 50 mls @ 100 mls/hr 04/13/25 14:00 04/14/25 09:00 Chloride IVPB Infused Q12HR DANIELE Infusion Loratadine 10 mg 03/30/25 09:00 04/14/25 08:28 Loratadine 10 Mg Tablet PO 10 mg QAM DANIELE Administration Losartan Potassium 25 mg 04/02/25 09:00 04/03/25 09:04 Losartan Potassium 25 Mg Tablet PO 25 mg On Hold: 04/04/25 08:20 DAILY DANIELE Administration Menthol/Methyl Salicylate 1 applic 04/06/25 02:01 04/08/25 11:39 Menthol 10% / Methyl Salicylate 15% 57 Gm Tube TOPICAL 1 applic BID PRN Administration Muscle/Joint Pain Metoprolol Tartrate 25 mg 04/11/25 21:00 04/14/25 08:29 Metoprolol Tartrate 25 Mg Tablet PO 25 mg Q12HR DANIELE Administration Midodrine 10 mg 04/03/25 23:20 04/14/25 12:13 Midodrine Hcl 10 Mg Tablet PO 10 mg TID DANIELE Administration Miscellaneous Information 1 each 04/12/25 00:01 Please Renew Clonazepam. Per [employer] Procedure, It Will Discontinue If Not Renewed XX 05/12/25 00:00 CLARIFY DANIELE Montelukast Sodium 10 mg 03/29/25 21:00 04/13/25 20:06 Montelukast Sodium 10 Mg Tablet PO 10 mg HS DANIELE Administration Pantoprazole Sodium 40 mg 04/07/25 21:00 04/14/25 08:28 Pantoprazole 40 Mg Tablet PO 40 mg Q12HR DANIELE Administration Polyethylene Glycol 17 gm 04/02/25 09:00 04/14/25 08:31 Polyethylene Glycol 3350 17 Gm Powd.Pack PO Not Given QAM DANIELE Fluticasone/Salmeterol 2 puff 03/29/25 20:00 04/14/25 07:58 Fluticasone/Salmeterol 45-21 Mcg Inhaler 1 Puff INHALATION 2 puff Q12HRT DANIELE Administration Senna 17.2 mg 03/30/25 09:00 04/02/25 08:36 Sennosides 8.6 Mg Tablet PO 17.2 mg On Hold: 04/02/25 08:45 BID DANIELE Administration Sodium Chloride 10 ml 03/30/25 06:00 04/14/25 13:28 Central Line Flush IV PUSH 10 ml Q8HR DANIELE Administration Radiology Results: ITS Impressions Head CT 03/28/25 17:39 Impression: Age-indeterminate focus of left frontal subcortical ischemia. No hemorrhage. MRI recommended Head/Neck CTA 03/29/25 08:51 IMPRESSION: CTA NECK: 1. No ICA stenosis or other acute arterial abnormality. 2. Lytic bony metastatic disease C2, C5. 3. Lytic bony metastatic disease right scapula with large associated soft tis alok component. CTA HEAD: 1. No large vessel arterial occlusive disease or other acute arterial abnormality. Brain MRI 03/30/25 15:18 IMPRESSION: 1. Scattered ossific white matter T2 hyperintensity consistent with chronic small vessel ischemic disease. No acute intracranial process. Venous Doppler Study 03/31/25 17:18 IMPRESSION: 1: No lower extremity deep venous thrombosis. Chest X-Ray 04/11/25 14:06 Impression: No acute cardiopulmonary abnormality. Shoulder X-Ray 04/11/25 15:25 Impression: No acute fracture or malalignment. Labs Labs: Laboratory Results - last 24 hr 04/14/25 04:02 WBC 13.8 H RBC 2.56 L Hgb 7.6 L Hct 23.8 L MCV 93.0 MCH 29.7 MCHC 31.9 L RDW 17.3 H Plt Count 298 MPV 9.2 Immature Gran % (Auto) 3.0 H Neut % (Auto) 84.4 H Lymph % (Auto) 3.8 L Lewis % (Auto) 8.2 Eos % (Auto) 0.3 Baso % (Auto) 0.3 Lymph # (Auto) 0.52 L Lewis # (Auto) 1.1 H Eos # (Auto) 0.0 Baso # (Auto) 0.0 Abs Immat Gran (auto) 0.41 H Absolute Neuts (auto) 11.6 H Absolute Nucleated RBC 0.000 Band Neutrophils % Not Reportable Nucleated RBC % 0.0 Platelet Estimate Adequate Dayan Cells 2+ Schistocytes None seen Sodium 128 L Potassium 3.2 L Chloride 101 Carbon Dioxide 19 L Anion Gap 8 BUN 14 Creatinine 0.82 Estim Creat Clear Calc 54 Estimated GFR > 60 Glucose 96 Calcium 8.8 Magnesium 1.6 Total Bilirubin 0.6 AST 49 H ALT 79 H Alkaline Phosphatase 126 Total Protein 6.3 Albumin 2.9 L
[2025-04-14 15:32] LABS: Hematocrit 27.2 % (37.0-47.0); Hemoglobin 8.8 g/dL (12.0-15.0)
[2025-04-14] MEDS: MONTELUKAST SODIUM 10 MG TABLET PO (19:58)
[2025-04-15] VITALS (12 sets, daily range): BP systolic 101–126; BP diastolic 55–77; PULSE 83–115; RESP 18; TEMP 36.5–37.4; O2SAT 97–100
[2025-04-15] MEDS: CENTRAL LINE FLUSH 10 ML IV PUSH ×3 (04:47→20:47)
[2025-04-15 05:02] LABS: Hematocrit 25.3 % (37.0-47.0); Hemoglobin 8.0 g/dL (12.0-15.0); Immature Granulocyte Percent A 4.7 % (0-0.5); Immature Platelet Fraction Pct 2.0 % (0.9-11.2); Lymphocytes Absolute Auto 0.51 K/mm3 (0.9-3.2); Mean Corpuscular HGB Conc 31.6 g/dl (32-36); Mean Corpuscular Hemoglobin 29.7 pg (26-34); Mean Corpuscular Volume 94.1 fl (80-100); Nucleated Red Blood Cells Absolute Auto 0.000 K/mm3 (0.0-0.012); Nucleated Red Blood Cells Perc 0.0 % (0.0-0.2); Platelet Count Result 368 k/mm3 (150-375); Red Blood Count 2.69 M/mm3 (4.2-5.4); White Blood Count 14.1 K/mm3 (4.5-10.0)
[2025-04-15 05:10] LABS: Alanine Aminotransferase 88 U/L (6-35); Albumin Level 2.8 g/dL (3.5-5.1); Alkaline Phosphatase 129 U/L (38-126); Anion Gap 9 mmol/L (4-12); Aspartate Amino Transferase 78 U/L (14-36); Bilirubin,Total 0.5 mg/dL (0.2-1.3); Blood Urea Nitrogen 15 mg/dL (7-17); Calcium 9.0 mg/dL (8.4-10.2); Carbon Dioxide 17 mmol/L (22-30); Chloride 105 mmol/L (98-107); Estimated CRCL calculation 54 ml/min; Estimated Glomerular Filt Rate > 60; Glucose 95 mg/dL (65-110); Magnesium 2.2 mg/dL (1.6-2.3); Potassium 3.9 mmol/L (3.4-5.0); Sodium 131 mmol/L (137-145); Total Protein 6.1 g/dL (6.3-8.2)
[2025-04-15 05:45] LABS: Burr Cells Occasional; Hypochromasia 1+; Ovalocytes Occasional
[2025-04-15 05:46] LABS: Schistocytes None Seen
[2025-04-15] MEDS: FLUTICASONE/SALMETEROL 45-21 MCG INHALER 1 PUFF 2 PUFF INHALATION ×2 (07:32→20:05)
[2025-04-15] MEDS: MIDODRINE HCL 10 MG TABLET PO ×3 (08:50→16:48)
[2025-04-15] MEDS: LORATADINE 10 MG TABLET PO (08:50)
[2025-04-15] MEDS: FOLIC ACID 1 MG TABLET PO (08:50)
[2025-04-15] MEDS: CEFEPIME 2 GM in SODIUM CHLORIDE 0.9% IV 50 ML 100 ML IVPB (08:51)
[2025-04-15] MEDS: ATORVASTATIN 40 MG TABLET PO (08:51)
[2025-04-15] MEDS: PANTOPRAZOLE 40 MG TABLET PO ×2 (08:51→20:46)
[2025-04-15] MEDS: METOPROLOL TARTRATE 25 MG TABLET PO ×2 (08:51→20:47)
--- NOTE | 2025-04-15 08:54 | PC.NURSE ---
Notified Julianna Rodas infection control, observed live lice on patient pillow this AM. Contact isolation initiated, all linens double bagged, housekeeping notified, and Dr. Alvarado made aware and treatment was ordered.
[2025-04-15] MEDS: PERMETHRIN 1% LIQUID 59 ML BOTTLE 1 APPLIC TOPICAL (09:03)
--- NOTE | 2025-04-15 15:38 | P.PNIM_ITS ---
Progress Note: A&P Assessment and Plan (1) Patent foramen ovale with right to left shunt: Code(s): Q21.12 - Patent foramen ovale Status: Acute (2) Cardiomyopathy: Code(s): I42.9 - Cardiomyopathy, unspecified Status: Acute (3) Hypercalcemia of malignancy: Code(s): E83.52 - Hypercalcemia Status: Acute (4) Hypokalemia: Code(s): E87.6 - Hypokalemia Status: Acute (5) Urinary tract infection: Code(s): N39.0 - Urinary tract infection, site not specified Status: Acute (6) Anemia: Code(s): D64.9 - Anemia, unspecified Status: Acute (7) Ovarian cancer: Code(s): C56.9 - Malignant neoplasm of unspecified ovary Status: Acute (8) Altered mental status: Code(s): R41.82 - Altered mental status, unspecified Status: Acute Plan 59-year-old female with past medical history of stage IV ovarian cancer with metastasis presenting with worsening mental status. She had recent clearly experiencing weakness, reduced appetite, slurring speech These symptoms were a significant change from the patient's baseline just days prior. Patient has been treated with chemo, radiation in the past, currently on maintenance therapy with Keytruda. , CT head without contrast showed age indeterminate focus of left frontal subcortical ischemia, no hemorrhage, CTA head and neck last night showed no ICA stenosis or other acute arterial abnormality, lytic bony metastatic disease C2, C5, lytic bony metastatic disease right scapula with large associated soft tissue component, no large vessel arterial occlusion disease or other acute arterial abnormality. Blood workup showed calcium level of 14.4 . Received calcitonin, zoledronic acid hypercalcemia. 1. Altered mental status/acute encephalopathy: CT with age indeterminate focus of left frontal subcortical ischemia MRI brain unremarkable Echocardiogram with EF of 40-45% with regional wall motion abnormality, PFO Mental status has improved Neurology following 2. UTI: Completed course of ceftriaxone However UA positive for UTI again Restarted ceftriaxone 04/11/2025 Follow urine culture Febrile again 04/12/2025. Switch ceftriaxone to cefepime Follow urine culture # Vaginitis received a dose of fluconazole 04/13/2025 3. Hypercalcemia: Likely secondary to malignancy Received zoledronic acid, calcitonin, IV fluids Hypercalcemia has resolved 4. Anemia: Status post 2 units of PRBC H&H stable H&H dropped today to 7.6. No signs of bleeding. Will recheck this evening and monitor 5. History of metastatic ovarian cancer: MRI brain unremarkable Patient follows up with Oncology at [facility] 6.) Cardiomyopathy: Patent foramen ovale Echo showing EF 40-45% with regional wall motion abnormality and PFO with R-->L shunt Cardiology consulted. LE venous doppler negative for DVT so unlikely paradoxical CVA. Metoprolol tartrate started. Maxide stopped and losartan added Due to HoTN and anemia, Plavix stopped. Continue tele monitoring. Continue statin. Verapamil has been stopped Will need home O2 evaluation before discharge Currently on room air 7. History of hypertension: Continue with losartan, metoprolol Verapamil has been stopped no overnight events. patient is found to lice in her hair, and being treated with permethrin, in isolation, stats did participate in the PT and able to tolerate diet, discussed with her nurse and she is doing better, patient urine culture is positive for enterococcus faecium, multi drug resistant, sensitive to Vancomycin, discussed with clinical pharmacist, will start the antibiotics and will switch over to oral upon discharge, patient remains clinically stable, will monitor. 8. Code status: Full 9. DVT prophylaxis: SCDs 9. Disposition: Pending placement. 10. Tachycardia with mild fever Re-culture. Chest x-ray negative. UA positive. Blood culture pending. Treat as UTI. With ceftriaxone Subjective Date/time seen: 04/15/25 15:38 Interval history: no overnight events. patient is found to lice in her hair, and being treated with permethrin, in isolation, stats did participate in the PT and able to tolerate diet, discussed with her nurse and she is doing better, patient urine culture is positive for enterococcus faecium, multi drug resistant, sensitive to Vancomycin, discussed with clinical pharmacist, will start the antibiotics and will switch over to oral upon discharge, patient remains clinically stable, will monitor. Review of Systems Review of Systems: All systems reviewed & are unremarkable except as noted in HPI and below Exam Narrative: Gen -no acute distress Chest -bilateral clear to auscultation CV - Regular rate and rhythm with S1-S2. Abd - soft, NT/ND with positive bowel sounds. Ext - no pedal edema Psych- alert, pleasant and cooperative Skin - Warm and dry. Objective Data Vital Signs Vital Signs: Vital Signs - 24 hr 04/14/25 16:00 04/14/25 16:03 04/14/25 19:33 Temperature 36.9 C Pulse Rate 84 99 97 Respiratory Rate 19 20 Blood Pressure 117/58 L Pulse Oximetry 98 Oxygen Delivery Fraction of Inspired Oxygen 04/14/25 19:35 04/14/25 19:58 04/14/25 20:20 Temperature 36.8 C Pulse Rate 97 98 95 Respiratory Rate 20 18 Blood Pressure 126/61 Pulse Oximetry 94 97 Oxygen Delivery Room Air Fraction of Inspired Oxygen 21 04/14/25 20:22 04/14/25 20:23 04/14/25 20:25 Temperature 37.1 C 37.1 C Pulse Rate 108 H 123 H 123 H Respiratory Rate 18 18 18 Blood Pressure 125/67 129/60 Pulse Oximetry 96 99 99 Oxygen Delivery Room Air Fraction of Inspired Oxygen 21 04/14/25 20:25 04/15/25 00:00 04/15/25 00:00 Temperature 36.8 C Pulse Rate 123 H 95 87 Respiratory Rate 18 Blood Pressure 126/61 Pulse Oximetry 97 Oxygen Delivery Fraction of Inspired Oxygen 04/15/25 04:00 04/15/25 06:01 04/15/25 08:03 Temperature 36.5 C Pulse Rate 83 84 102 H Respiratory Rate 18 Blood Pressure 108/56 L Pulse Oximetry 98 Oxygen Delivery Fraction of Inspired Oxygen 04/15/25 08:51 04/15/25 08:51 04/15/25 12:00 Temperature 36.5 C Pulse Rate 102 H Respiratory Rate Blood Pressure Pulse Oximetry Oxygen Delivery Room Air Fraction of Inspired Oxygen 04/15/25 13:36 04/15/25 13:36 04/15/25 13:38 Temperature 37.3 C 37.3 C Pulse Rate 100 100 114 H Respiratory Rate 18 18 Blood Pressure 101/56 L 101/56 L 122/64 Pulse Oximetry 97 97 97 Oxygen Delivery Fraction of Inspired Oxygen 04/15/25 13:41 Temperature Pulse Rate 115 H Respiratory Rate Blood Pressure 119/77 Pulse Oximetry 99 Oxygen Delivery Fraction of Inspired Oxygen Intake/Output Intake/Output: Intake & Output 04/12/25 04/13/25 04/14/25 04/15/25 23:59 23:59 23:59 23:59 Intake Total 1621 163 4699 710 Output Total 100 500 Balance 3249 143 3472 710 Meds/Results Medications: Active Medications Generic Name Dose Route Start Last Admin Trade Name Freq PRN Reason Stop Dose Admin Acetaminophen 650 mg 03/29/25 19:45 04/14/25 19:57 Acetaminophen 325 Mg Tablet PO 650 mg Q4H PRN Administration Mild Pain (1-3) or Fever Albuterol 2.5 mg 03/29/25 21:50 Albuterol Sulfate Neb 2.5 Mg/3 Ml Inh INHALATION Q4-6H PRN Shortness Of Breath Albuterol 2 puff 04/03/25 17:11 Albuterol Sulfate (*Sp) Aerosol 1 Puff INHALATION Q6HRT PRN Shortness Of Breath Or Wheezing Atorvastatin Calcium 40 mg 03/30/25 09:00 04/15/25 08:51 Atorvastatin 40 Mg Tablet PO 40 mg DAILY DANIELE Administration Duloxetine HCl 60 mg 04/14/25 09:00 04/15/25 08:51 Duloxetine Hcl 30 Mg Capsule.Dr PO 60 mg DAILY DANIELE Administration Folic Acid 1 mg 03/30/25 09:00 04/15/25 08:50 Folic Acid 1 Mg Tablet PO 1 mg DAILY DANIELE Administration Heparin Sodium (Beef Lung) 50 units 03/30/25 09:00 04/15/25 08:52 Heparin Flush 50 Units/5 Ml Syringe IV PUSH 50 units QAM DANIELE Administration Heparin Sodium (Beef Lung) 50 units 03/29/25 23:50 Heparin Flush 50 Units/5 Ml Syringe IV PUSH PRN PRN after intermittent infusion Heparin Sodium (Beef Lung) 50 units 03/29/25 23:50 04/13/25 04:20 Heparin Flush 50 Units/5 Ml Syringe IV PUSH 50 units PRN PRN Administration after blood draws Heparin Sodium (Porcine) 500 units 03/29/25 23:50 04/11/25 23:05 Heparin Sodium Lock Flush 500 Units/5 Ml Syringe IV PUSH 500 units PRN PRN Administration see comments below Loratadine 10 mg 03/30/25 09:00 04/15/25 08:50 Loratadine 10 Mg Tablet PO 10 mg QAM DANIELE Administration Menthol/Methyl Salicylate 1 applic 04/06/25 02:01 04/08/25 11:39 Menthol 10% / Methyl Salicylate 15% 57 Gm Tube TOPICAL 1 applic BID PRN Administration Muscle/Joint Pain Metoprolol Tartrate 25 mg 04/11/25 21:00 04/15/25 08:51 Metoprolol Tartrate 25 Mg Tablet PO 25 mg Q12HR DANIELE Administration Midodrine 10 mg 04/03/25 23:20 04/15/25 12:06 Midodrine Hcl 10 Mg Tablet PO 10 mg TID DANIELE Administration Miscellaneous Information 1 each 04/12/25 00:01 04/15/25 08:06 Please Renew Clonazepam. Per [employer] Procedure, It Will Discontinue If Not Renewed XX 05/12/25 00:00 Not Given CLARIFY DANIELE Montelukast Sodium 10 mg 03/29/25 21:00 04/14/25 19:58 Montelukast Sodium 10 Mg Tablet PO 10 mg HS DANIELE Administration Pantoprazole Sodium 40 mg 04/07/25 21:00 04/15/25 08:51 Pantoprazole 40 Mg Tablet PO 40 mg Q12HR DANIELE Administration Polyethylene Glycol 17 gm 04/02/25 09:00 04/15/25 08:50 Polyethylene Glycol 3350 17 Gm Powd.Pack PO 17 gm QAM DANIELE Administration Fluticasone/Salmeterol 2 puff 03/29/25 20:00 04/15/25 07:32 Fluticasone/Salmeterol 45-21 Mcg Inhaler 1 Puff INHALATION 2 puff Q12HRT DANIELE Administration Senna 17.2 mg 03/30/25 09:00 04/02/25 08:36 Sennosides 8.6 Mg Tablet PO 17.2 mg On Hold: 04/02/25 08:45 BID DANIELE Administration Sodium Chloride 10 ml 03/30/25 06:00 04/15/25 13:15 Central Line Flush IV PUSH 10 ml Q8HR DANIELE Administration Vancomycin HCl 1 each 04/15/25 15:35 Vancomycin Pharmacist To Dose IVPB PER PROTOCOL [facility] Radiology Results: ITS Impressions Head CT 03/28/25 17:39 Impression: Age-indeterminate focus of left frontal subcortical ischemia. No hemorrhage. MRI recommended Head/Neck CTA 03/29/25 08:51 IMPRESSION: CTA NECK: 1. No ICA stenosis or other acute arterial abnormality. 2. Lytic bony metastatic disease C2, C5. 3. Lytic bony metastatic disease right scapula with large associated soft tissue component. CTA HEAD: 1. No large vessel arterial occlusive disease or other acute arterial abnormality. Brain MRI 09/22/25 15:18 IMPRESSION: 1. Scattered ossific white matter T2 hyperintensity consistent with chronic small vessel ischemic disease. No acute intracranial process. Venous Doppler Study 03/31/25 17:18 IMPRESSION: 1: No lower extremity deep venous thrombosis. Chest X-Ray 04/11/25 14:06 Impression: No acute cardiopulmonary abnormality. Shoulder X-Ray 04/11/25 15:25 Impression: No acute fracture or malalignment. Labs Labs: Laboratory Results - last 24 hr 04/14/25 04/15/25 15:18 04:51 WBC 14.1 H RBC 2.69 L Hgb 8.8 L 8.0 L Hct 27.2 L 25.3 L MCV 94.1 MCH 29.7 MCHC 31.6 L RDW 17.3 H Plt Count 368 MPV 9.4 Immature Gran % (Auto) 4.7 H Neut % (Auto) 84.0 H Lymph % (Auto) 3.6 L [place] % (Auto) 6.9 Eos % (Auto) 0.4 Baso % (Auto) 0.4 Lymph # (Auto) 0.51 L [place] # (Auto) 1.0 H Eos # (Auto) 0.1 Baso # (Auto) 0.1 Abs Immat Gran (auto) 0.66 H Absolute Neuts (auto) 11.8 H Absolute Nucleated RBC 0.000 Band Neutrophils % Not Reportable Nucleated RBC % 0.0 Platelet Estimate Adequate % Immature Plt Fraction 2.0 Hypochromasia 1+ Ovalocytes Occasional [place] Cells Occasional Schistocytes None seen Sodium 131 L Potassium 3.9 Chloride 105 Carbon Dioxide 17 L Anion Gap 9 BUN 15 Creatinine 0.83 Estim Creat Clear Calc 54 Estimated GFR > 60 Glucose 95 Calcium 9.0 Magnesium 2.2 Total Bilirubin 0.5 AST 78 H ALT 88 H Alkaline Phosphatase 129 H Total Protein 6.1 L Albumin 2.8 L Quality VTE Prophylaxis VTE prophylaxis: mechanical ordered
[2025-04-15] MEDS: VANCOMYCIN 1,250 MG/NS 250 ML 1,250 MG/250 ML BAG 166.67 MG IVPB (16:48)
[2025-04-15] MEDS: MONTELUKAST SODIUM 10 MG TABLET PO (20:46)
[2025-04-15] MEDS: ACETAMINOPHEN 325 MG TABLET 650 MG PO (20:46)
[2025-04-16] VITALS (10 sets, daily range): BP systolic 100–123; BP diastolic 56–67; PULSE 55–122; RESP 16–18; TEMP 36.3–36.9; O2SAT 96–100
[2025-04-16] MEDS: CENTRAL LINE FLUSH 10 ML IV PUSH ×3 (05:47→22:14)
[2025-04-16 07:04] LABS: Estimated CRCL calculation 51 ml/min; Estimated Glomerular Filt Rate > 60
[2025-04-16] MEDS: FLUTICASONE/SALMETEROL 45-21 MCG INHALER 1 PUFF 2 PUFF INHALATION ×2 (08:03→20:02)
[2025-04-16] MEDS: ATORVASTATIN 40 MG TABLET PO (09:11)
[2025-04-16] MEDS: LORATADINE 10 MG TABLET PO (09:12)
[2025-04-16] MEDS: FOLIC ACID 1 MG TABLET PO (09:12)
[2025-04-16] MEDS: MIDODRINE HCL 10 MG TABLET PO ×3 (09:12→17:36)
[2025-04-16] MEDS: METOPROLOL TARTRATE 25 MG TABLET PO ×2 (09:12→22:13)
[2025-04-16] MEDS: PANTOPRAZOLE 40 MG TABLET PO ×2 (09:12→22:13)
[2025-04-16] MEDS: ACETAMINOPHEN 325 MG TABLET 650 MG PO ×2 (10:23→17:36)
[2025-04-16] MEDS: ALTEPLASE 2 MG VIAL (CATHFLO) IV PUSH (10:24)
--- NOTE | 2025-04-16 15:16 | P.PNIM_ITS ---
Progress Note: A&P Assessment and Plan (1) Patent foramen ovale with right to left shunt: Code(s): Q21.12 - Patent foramen ovale Status: Acute (2) Cardiomyopathy: Code(s): I42.9 - Cardiomyopathy, unspecified Status: Acute (3) Hypercalcemia of malignancy: Code(s): E83.52 - Hypercalcemia Status: Acute (4) Hypokalemia: Code(s): E87.6 - Hypokalemia Status: Acute (5) Urinary tract infection: Code(s): N39.0 - Urinary tract infection, site not specified Status: Acute (6) Anemia: Code(s): D64.9 - Anemia, unspecified Status: Acute (7) Ovarian cancer: Code(s): C56.9 - Malignant neoplasm of unspecified ovary Status: Acute (8) Altered mental status: Code(s): R41.82 - Altered mental status, unspecified Status: Acute Plan 59-year-old female with past medical history of stage IV ovarian cancer with metastasis presenting with worsening mental status. She had recent clearly experiencing weakness, reduced appetite, slurring speech These symptoms were a significant change from the patient's baseline just days prior. Patient has been treated with chemo, radiation in the past, currently on maintenance therapy with Keytruda. , CT head without contrast showed age indeterminate focus of left frontal subcortical ischemia, no hemorrhage, CTA head and neck last night showed no ICA stenosis or other acute arterial abnormality, lytic bony metastatic disease C2, C5, lytic bony metastatic disease right scapula with large associated soft tissue component, no large vessel arterial occlusion disease or other acute arterial abnormality. Blood workup showed calcium level of 14.4 . Received calcitonin, zoledronic acid hypercalcemia. 1. Altered mental status/acute encephalopathy: CT with age indeterminate focus of left frontal subcortical ischemia MRI brain unremarkable Echocardiogram with EF of 40-45% with regional wall motion abnormality, PFO Mental status has improved Neurology following 2. UTI: Completed course of ceftriaxone However UA positive for UTI again Restarted ceftriaxone 04/11/2025 Follow urine culture Febrile again 04/12/2025. Switch ceftriaxone to cefepime Follow urine culture # Vaginitis received a dose of fluconazole 04/13/2025 3. Hypercalcemia: Likely secondary to malignancy Received zoledronic acid, calcitonin, IV fluids Hypercalcemia has resolved 4. Anemia: Status post 2 units of PRBC H&H stable H&H dropped today to 7.6. No signs of bleeding. Will recheck this evening and monitor 5. History of metastatic ovarian cancer: MRI brain unremarkable Patient follows up with Oncology at [facility] 6.) Cardiomyopathy: Patent foramen ovale Echo showing EF 40-45% with regional wall motion abnormality and PFO with R-->L shunt Cardiology consulted. LE venous doppler negative for DVT so unlikely paradoxical CVA. Metoprolol tartrate started. Maxide stopped and losartan added Due to HoTN and anemia, Plavix stopped. Continue tele monitoring. Continue statin. Verapamil has been stopped Will need home O2 evaluation before discharge Currently on room air 7. History of hypertension: Continue with losartan, metoprolol Verapamil has been stopped no overnight events. patient is found to lice in her hair, and being treated with permethrin, in isolation, stats did participate in the PT and able to tolerate diet, discussed with her nurse and she is doing better, patient urine culture is positive for enterococcus faecium, multi drug resistant, sensitive to Vancomycin, discussed with clinical pharmacist, will start the antibiotics and will switch over to oral upon discharge, patient remains clinically stable, will monitor. patient remains clinically stable, has no new complaints, will continue IV abx today will discharge patient tomorrow on oral abx. patient placemnt into SNF. 8. Code status: Full 9. DVT prophylaxis: SCDs 9. Disposition: Pending placement. 10. Tachycardia with mild fever Re-culture. Chest x-ray negative. UA positive. Blood culture pending. Treat as UTI. With ceftriaxone Subjective Date/time seen: 04/16/25 15:16 Interval history: no overnight events. patient is found to lice in her hair, and being treated with permethrin, in isolation, stats did participate in the PT and able to tolerate diet, discussed with her nurse and she is doing better, patient urine culture is positive for enterococcus faecium, multi drug resistant, sensitive to Vancomycin, discussed with clinical pharmacist, will start the antibiotics and will switch over to oral upon discharge, patient remains clinically stable, will monitor. patient remains clinically stable, has no new complaints, will continue IV abx today will discharge patient tomorrow on oral abx. patient placemnt into SNF. Review of Systems Review of Systems: All systems reviewed & are unremarkable except as noted in HPI and below ROS unobtainable: Yes unobtainable due to medical condition and unobtainable due to mental status Exam Narrative: Gen -no acute distress Chest -bilateral clear to auscultation CV - Regular rate and rhythm with S1-S2. Abd - soft, NT/ND with positive bowel sounds. Ext - no pedal edema Psych- alert, pleasant and cooperative Skin - Warm and dry. Objective Data Vital Signs Vital Signs: Vital Signs - 24 hr 04/15/25 20:00 04/15/25 20:15 04/15/25 20:16 Temperature 37.4 C 36.9 C Pulse Rate 112 H 113 H 112 H Respiratory Rate 18 18 18 Blood Pressure 120/55 L 112/57 L Pulse Oximetry 100 98 100 Oxygen Delivery Room Air Fraction of Inspired Oxygen 21 04/16/25 00:00 04/16/25 06:02 04/16/25 08:06 Temperature 36.9 C 36.3 C L Pulse Rate 101 H 85 Respiratory Rate 18 18 17 Blood Pressure 103/61 113/56 L Pulse Oximetry 100 97 Oxygen Delivery Fraction of Inspired Oxygen 04/16/25 09:12 04/16/25 09:15 Temperature Pulse Rate 85 Respiratory Rate Blood Pressure Pulse Oximetry Oxygen Delivery Room Air Fraction of Inspired Oxygen Intake/Output Intake/Output: Intake & Output 04/13/25 04/14/25 04/15/25 04/16/25 23:59 23:59 23:59 23:59 Intake Total 860 1312 1300 720 Output Total 500 Balance 360 1312 1300 720 Meds/Results Medications: Active Medications Generic Name Dose Route Start Last Admin Trade Name Freq PRN Reason Stop Dose Admin Acetaminophen 650 mg 03/29/25 19:45 04/16/25 10:23 Acetaminophen 325 Mg Tablet PO 650 mg Q4H PRN Administration Mild Pain (1-3) or Fever Albuterol 2.5 mg 03/29/25 21:50 Albuterol Sulfate Neb 2.5 Mg/3 Ml Inh INHALATION Q4-6H PRN Shortness Of Breath Albuterol 2 puff 04/03/25 17:11 Albuterol Sulfate (*Sp) Aerosol 1 Puff INHALATION Q6HRT PRN Shortness Of Breath Or Wheezing Alteplase, Recombinant 2 mg 04/16/25 09:02 04/16/25 10:24 Alteplase 2 Mg Vial (Cathflo) IV PUSH 2 mg ONCE PRN Administration Line Occlusion Atorvastatin Calcium 40 mg 03/30/25 09:00 04/16/25 09:11 Atorvastatin 40 Mg Tablet PO 40 mg DAILY DANIELE Administration Duloxetine HCl 60 mg 04/14/25 09:00 04/16/25 09:11 Duloxetine Hcl 30 Mg Capsule.Dr PO 60 mg DAILY DANIELE Administration Folic Acid 1 mg 03/30/25 09:00 04/16/25 09:12 Folic Acid 1 Mg Tablet PO 1 mg DAILY DANIELE Administration Heparin Sodium (Beef Lung) 50 units 03/30/25 09:00 04/16/25 12:43 Heparin Flush 50 Units/5 Ml Syringe IV PUSH 50 units QAM DANIELE Administration Heparin Sodium (Beef Lung) 50 units 03/29/25 23:50 Heparin Flush 50 Units/5 Ml Syringe IV PUSH PRN PRN after intermittent infusion Heparin Sodium (Beef Lung) 50 units 03/29/25 23:50 04/13/25 04:20 Heparin Flush 50 Units/5 Ml Syringe IV PUSH 50 units PRN PRN Administration after blood draws Heparin Sodium (Porcine) 500 units 03/29/25 23:50 04/11/25 23:05 Heparin Sodium Lock Flush 500 Units/5 Ml Syringe IV PUSH 500 units PRN PRN Administration see comments below Vancomycin HCl 1,250 mg in 250 mls @ 166.667 mls/hr 04/15/25 16:00 04/15/25 16:48 Vancomycin 1,250 Mg/Ns 250 Ml IVPB 166.67 mls/hr Q24H DANIELE Administration Loratadine 10 mg 03/30/25 09:00 04/16/25 09:12 Loratadine 10 Mg Tablet PO 10 mg QAM DANIELE Administration Menthol/Methyl Salicylate 1 applic 04/06/25 02:01 04/08/25 11:39 Menthol 10% / Methyl Salicylate 15% 57 Gm Tube TOPICAL 1 applic BID PRN Administration Muscle/Joint Pain Metoprolol Tartrate 25 mg 04/11/25 21:00 04/16/25 09:12 Metoprolol Tartrate 25 Mg Tablet PO 25 mg Q12HR DANIELE Administration Midodrine 10 mg 04/03/25 23:20 04/16/25 12:41 Midodrine Hcl 10 Mg Tablet PO 10 mg TID DANIELE Administration Miscellaneous Information 1 each 04/12/25 00:01 04/15/25 08:06 Please Renew Clonazepam. Per [employer] Procedure, It Will Discontinue If Not Renewed XX 05/12/25 00:00 Not Given CLARIFY DANIELE Montelukast Sodium 10 mg 03/29/25 21:00 04/15/25 20:46 Montelukast Sodium 10 Mg Tablet PO 10 mg HS DANIELE Administration Pantoprazole Sodium 40 mg 04/07/25 21:00 04/16/25 09:12 Pantoprazole 40 Mg Tablet PO 40 mg Q12HR DANIELE Administration Polyethylene Glycol 17 gm 04/02/25 09:00 04/16/25 09:13 Polyethylene Glycol 3350 17 Gm Powd.Pack PO Not Given QAM DANIELE Fluticasone/Salmeterol 2 puff 03/29/25 20:00 04/16/25 08:03 Fluticasone/Salmeterol 45-21 Mcg Inhaler 1 Puff INHALATION 2 puff Q12HRT DANIELE Administration Senna 17.2 mg 03/30/25 09:00 04/02/25 08:36 Sennosides 8.6 Mg Tablet PO 17.2 mg On Hold: 04/02/25 08:45 BID DANIELE Administration Sodium Chloride 10 ml 03/30/25 06:00 04/16/25 05:47 Central Line Flush IV PUSH 10 ml Q8HR DANIELE Administration Radiology Results: ITS Impressions Head CT 03/28/25 17:39 Impression: Age-indeterminate focus of left frontal subcortical ischemia. No hemorrhage. MRI recommended Head/Neck CTA 03/29/25 08:51 IMPRESSION: CTA NECK: 1. No ICA stenosis or other acute arterial abnormality. 2. Lytic bony metastatic disease C2, C5. 3. Lytic bony metastatic disease right scapula with large associated soft tissue component. CTA HEAD: 1. No large vessel arterial occlusive disease or other acute arterial abnormality. Brain MRI 03/30/25 15:18 IMPRESSION: 1. Scattered ossific white matter T2 hyperintensity consistent with chronic small vessel ischemic disease. No acute intracranial process. Venous Doppler Study 03/31/25 17:18 IMPRESSION: 1: No lower extremity deep venous thrombosis. Shoulder X-Ray 04/11/25 15:25 Impression: No acute fracture or malalignment. Chest X-Ray 04/16/25 08:48 IMPRESSION: 1. No acute cardiopulmonary findings given portable technique. 2. Right Mediport unchanged in position. Labs Labs: Laboratory Results - last 24 hr 04/16/25 06:40 Creatinine 0.88 Estim Creat Clear Calc 51 Estimated GFR > 60 Quality VTE Prophylaxis VTE prophylaxis: mechanical ordered
[2025-04-16] MEDS: VANCOMYCIN 1,250 MG/NS 250 ML 1,250 MG/250 ML BAG 166.67 MG IVPB (15:54)
[2025-04-16] MEDS: MONTELUKAST SODIUM 10 MG TABLET PO (22:14)
[2025-04-17] VITALS (7 sets, daily range): BP systolic 99–120; BP diastolic 54–73; PULSE 72–120; RESP 14–16; TEMP 36.6–36.7; O2SAT 97–99
[2025-04-17] MEDS: ACETAMINOPHEN 325 MG TABLET 650 MG PO ×2 (04:53→10:17)
[2025-04-17] MEDS: CENTRAL LINE FLUSH 10 ML IV PUSH ×3 (05:05→21:57)
[2025-04-17 05:12] LABS: Hematocrit 26.4 % (37.0-47.0); Hemoglobin 8.5 g/dL (12.0-15.0); Mean Corpuscular HGB Conc 32.2 g/dl (32-36); Mean Corpuscular Hemoglobin 29.5 pg (26-34); Mean Corpuscular Volume 91.7 fl (80-100); Platelet Count Result 384 k/mm3 (150-375); Red Blood Count 2.88 M/mm3 (4.2-5.4); White Blood Count 18.2 K/mm3 (4.5-10.0)
[2025-04-17 05:34] LABS: Anion Gap 7 mmol/L (4-12); Blood Urea Nitrogen 16 mg/dL (7-17); Calcium 10.0 mg/dL (8.4-10.2); Carbon Dioxide 20 mmol/L (22-30); Chloride 100 mmol/L (98-107); Estimated CRCL calculation 56 ml/min; Estimated Glomerular Filt Rate > 60; Glucose 125 mg/dL (65-110); Magnesium 1.7 mg/dL (1.6-2.3); Potassium 3.3 mmol/L (3.4-5.0); Sodium 127 mmol/L (137-145)
[2025-04-17] MEDS: MIDODRINE HCL 10 MG TABLET PO ×3 (10:18→17:22)
[2025-04-17] MEDS: METOPROLOL TARTRATE 25 MG TABLET PO ×2 (10:18→21:56)
[2025-04-17] MEDS: LORATADINE 10 MG TABLET PO (10:18)
[2025-04-17] MEDS: FOLIC ACID 1 MG TABLET PO (10:18)
[2025-04-17] MEDS: ATORVASTATIN 40 MG TABLET PO (10:18)
[2025-04-17] MEDS: PANTOPRAZOLE 40 MG TABLET PO ×2 (10:19→21:56)
--- NOTE | 2025-04-17 10:55 | PCNFU ---
Nutrition Follow-Up Complete: Inadequate oral intake related to altered mental status as evidenced by report of poor intake 2 weeks Goal: PO intake >50% Patient has limited progress towards goal. We will continue current goal. Pt current nutrition is Regular with diet supplements BID. Last recorded weight is 61.3 kg, down from 64.2 kg. Bowel Motility: Last reported BM 04/17 Labs Reviewed: Glu 125, K 3.3, Alb 2.8 Meds Noted: Folic Acid, Miralax Skin: WNL Additional Notes:Patient remains on a regular diet with Ensure Plus High Protein BID providing an additional 350 kcal and 20 gm protein. Oral intake remains poor. Po intake encouraged. Agree with diet orders. Monitoring intakes, weights, labs, supplement tolerance, feeding ability, plan of care Follow up in 3 days
--- NOTE | 2025-04-17 13:41 | PM.IMPN ---
Progress Note: A&P Assessment and Plan (1) Patent foramen ovale with right to left shunt: Code(s): Q21.12 - Patent foramen ovale Status: Acute (2) Cardiomyopathy: Code(s): I42.9 - Cardiomyopathy, unspecified Status: Acute (3) Hypercalcemia of malignancy: Code(s): E83.52 - Hypercalcemia Status: Acute (4) Hypokalemia: Code(s): E87.6 - Hypokalemia Status: Acute (5) Urinary tract infection: Code(s): N39.0 - Urinary tract infection, site not specified Status: Acute (6) Anemia: Code(s): D64.9 - Anemia, unspecified Status: Acute (7) Ovarian cancer: Code(s): C56.9 - Malignant neoplasm of unspecified ovary Status: Acute (8) Altered mental status: Code(s): R41.82 - Altered mental status, unspecified Status: Acute Plan 59-year-old female with past medical history of stage IV ovarian cancer with metastasis presenting with worsening mental status. She had recent clearly experiencing weakness, reduced appetite, slurring speech These symptoms were a significant change from the patient's baseline just days prior. Patient has been treated with chemo, radiation in the past, currently on maintenance therapy with Keytruda. , CT head without contrast showed age indeterminate focus of left frontal subcortical ischemia, no hemorrhage, CTA head and neck last night showed no ICA stenosis or other acute arterial abnormality, lytic bony metastatic disease C2, C5, lytic bony metastatic disease right scapula with large associated soft tissue component, no large vessel arterial occlusion disease or other acute arterial abnormality. Blood workup showed calcium level of 14.4 . Received calcitonin, zoledronic acid hypercalcemia. 1. Altered mental status/acute encephalopathy: CT with age indeterminate focus of left frontal subcortical ischemia MRI brain unremarkable Echocardiogram with EF of 40-45% with regional wall motion abnormality, PFO Mental status has improved Neurology following 2. UTI: Completed course of ceftriaxone However UA positive for UTI again Restarted ceftriaxone 04/11/2025 Follow urine culture Febrile again 04/12/2025. Switch ceftriaxone to cefepime Follow urine culture # Vaginitis received a dose of fluconazole 04/13/2025 3. Hypercalcemia: Likely secondary to malignancy Received zoledronic acid, calcitonin, IV fluids Hypercalcemia has resolved 4. Anemia: Status post 2 units of PRBC H&H stable H&H dropped today to 7.6. No signs of bleeding. Will recheck this evening and monitor 5. History of metastatic ovarian cancer: MRI brain unremarkable Patient follows up with Oncology at [facility] 6.) Cardiomyopathy: Patent foramen ovale Echo showing EF 40-45% with regional wall motion abnormality and PFO with R-->L shunt Cardiology consulted. LE venous doppler negative for DVT so unlikely paradoxical CVA. Metoprolol tartrate started. Maxide stopped and losartan added Due to HoTN and anemia, Plavix stopped. Continue tele monitoring. Continue statin. Verapamil has been stopped Will need home O2 evaluation before discharge Currently on room air 7. History of hypertension: Continue with losartan, metoprolol Verapamil has been stopped no overnight events. patient is found to lice in her hair, and being treated with permethrin, in isolation, stats did participate in the PT and able to tolerate diet, discussed with her nurse and she is doing better, patient urine culture is positive for enterococcus faecium, multi drug resistant, sensitive to Vancomycin, discussed with clinical pharmacist, will start the antibiotics and will switch over to oral upon discharge, patient remains clinically stable, will monitor. patient remains clinically stable, has no new complaints, will continue IV abx today, and plan was discharge today, however patient is accepted by [facility] and they do not any bed until Sunday at that will discharge the patient. 8. Code status: Full 9. DVT prophylaxis: SCDs 9. Disposition: Pending placement. 10. Tachycardia with mild fever Re-culture. Chest x-ray negative. UA positive. Blood culture pending. Treat as UTI. With ceftriaxone Subjective Date/time seen: 04/17/25 13:41 Interval history: no overnight events. patient is found to lice in her hair, and being treated with permethrin, in isolation, stats did participate in the PT and able to tolerate diet, discussed with her nurse and she is doing better, patient urine culture is positive for enterococcus faecium, multi drug resistant, sensitive to Vancomycin, discussed with clinical pharmacist, will start the antibiotics and will switch over to oral upon discharge, patient remains clinically stable, will monitor. patient remains clinically stable, has no new complaints, will continue IV abx today, and plan was discharge today, however patient is accepted by [facility] and they do not any bed until Sunday at that will discharge the patient. Review of Systems Review of Systems: All systems reviewed & are unremarkable except as noted in HPI and below Exam Narrative: Gen -no acute distress Chest -bilateral clear to auscultation CV - Regular rate and rhythm with S1-S2. Abd - soft, NT/ND with positive bowel sounds. Ext - no pedal edema Psych- alert, pleasant and cooperative Skin - Warm and dry. Objective Data Vital Signs Vital Signs: Vital Signs - 24 hr 04/16/25 16:00 04/16/25 16:45 04/16/25 16:49 Temperature 36.4 C Pulse Rate 80 94 112 H Respiratory Rate 16 Blood Pressure 112/58 L 106/66 123/67 Pulse Oximetry 96 Oxygen Delivery 04/16/25 16:53 04/16/25 22:09 04/16/25 22:13 Temperature Pulse Rate 122 H 55 L Respiratory Rate Blood Pressure 122/59 L Pulse Oximetry Oxygen Delivery Room Air 04/16/25 22:24 04/17/25 08:00 04/17/25 08:05 Temperature 36.5 C Pulse Rate 60 104 H 120 H Respiratory Rate 16 Blood Pressure 100/58 L 99/67 L 120/73 Pulse Oximetry 96 97 98 Oxygen Delivery 04/17/25 10:00 04/17/25 10:18 Temperature Pulse Rate 72 Respiratory Rate Blood Pressure Pulse Oximetry Oxygen Delivery Room Air Intake/Output Intake/Output: Intake & Output 04/14/25 04/15/25 04/16/25 04/17/25 23:59 23:59 23:59 23:59 Intake Total 1312 1550 1020 400 Balance 1312 1550 1020 400 Meds/Results Medications: Active Medications Generic Name Dose Route Start Last Admin Trade Name Freq PRN Reason Stop Dose Admin Acetaminophen 650 mg 03/29/25 19:45 04/17/25 10:17 Acetaminophen 325 Mg Tablet PO 650 mg Q4H PRN Administration Mild Pain (1-3) or Fever Albuterol 2.5 mg 03/29/25 21:50 Albuterol Sulfate Neb 2.5 Mg/3 Ml Inh INHALATION Q4-6H PRN Shortness Of Breath Albuterol 2 puff 04/03/25 17:11 Albuterol Sulfate (*Sp) Aerosol 1 Puff INHALATION Q6HRT PRN Shortness Of Breath Or Wheezing Alteplase, Recombinant 2 mg 04/16/25 09:02 04/16/25 10:24 Alteplase 2 Mg Vial (Cathflo) IV PUSH 2 mg ONCE PRN Administration Line Occlusion Atorvastatin Calcium 40 mg 03/30/25 09:00 04/17/25 10:18 Atorvastatin 40 Mg Tablet PO 40 mg DAILY DANIELE Administration Duloxetine HCl 60 mg 04/14/25 09:00 04/17/25 10:18 Duloxetine Hcl 30 Mg Capsule.Dr PO 60 mg DAILY DANIELE Administration Folic Acid 1 mg 03/30/25 09:00 04/17/25 10:18 Folic Acid 1 Mg Tablet PO 1 mg DAILY DANIELE Administration Heparin Sodium (Beef Lung) 50 units 03/30/25 09:00 04/17/25 10:28 Heparin Flush 50 Units/5 Ml Syringe IV PUSH 50 units QAM DANIELE Administration Heparin Sodium (Beef Lung) 50 units 03/29/25 23:50 Heparin Flush 50 Units/5 Ml Syringe IV PUSH PRN PRN after intermittent infusion Heparin Sodium (Beef Lung) 50 units 03/29/25 23:50 04/17/25 05:05 Heparin Flush 50 Units/5 Ml Syringe IV PUSH 50 units PRN PRN Administration after blood draws Heparin Sodium (Porcine) 500 units 03/29/25 23:50 04/11/25 23:05 Heparin Sodium Lock Flush 500 Units/5 Ml Syringe IV PUSH 500 units PRN PRN Administration see comments below Vancomycin HCl 1,250 mg in 250 mls @ 166.667 mls/hr 04/15/25 16:00 04/16/25 17:24 Vancomycin 1,250 Mg/Ns 250 Ml IVPB Infused Q24H DANIELE Infusion Loratadine 10 mg 03/30/25 09:00 04/17/25 10:18 Loratadine 10 Mg Tablet PO 10 mg QAM DANIELE Administration Menthol/Methyl Salicylate 1 applic 04/06/25 02:01 04/08/25 11:39 Menthol 10% / Methyl Salicylate 15% 57 Gm Tube TOPICAL 1 applic BID PRN Administration Muscle/Joint Pain Metoprolol Tartrate 25 mg 04/11/25 21:00 04/17/25 10:18 Metoprolol Tartrate 25 Mg Tablet PO 25 mg Q12HR DANIELE Administration Midodrine 10 mg 04/03/25 23:20 04/17/25 13:41 Midodrine Hcl 10 Mg Tablet PO 10 mg TID DANIELE Administration Miscellaneous Information 1 each 04/12/25 00:01 04/15/25 08:06 Please Renew Clonazepam. Per [employer] Procedure, It Will Discontinue If Not Renewed XX 05/12/25 00:00 Not Given CLARIFY DANIELE Montelukast Sodium 10 mg 03/29/25 21:00 04/16/25 22:14 Montelukast Sodium 10 Mg Tablet PO 10 mg HS DANIELE Administration Pantoprazole Sodium 40 mg 04/07/25 21:00 04/17/25 10:19 Pantoprazole 40 Mg Tablet PO 40 mg Q12HR DANIELE Administration Polyethylene Glycol 17 gm 04/02/25 09:00 04/17/25 10:18 Polyethylene Glycol 3350 17 Gm Powd.Pack PO 17 gm QAM DANIELE Administration Fluticasone/Salmeterol 2 puff 03/29/25 20:00 04/17/25 09:13 Fluticasone/Salmeterol 45-21 Mcg Inhaler 1 Puff INHALATION Not Given Q12HRT DANIELE Senna 17.2 mg 03/30/25 09:00 04/02/25 08:36 Sennosides 8.6 Mg Tablet PO 17.2 mg On Hold: 04/02/25 08:45 BID DANIELE Administration Sodium Chloride 10 ml 03/30/25 06:00 04/17/25 13:41 Central Line Flush IV PUSH 10 ml Q8HR DANIELE Administration Radiology Results: ITS Impressions Head CT 03/28/25 17:39 Impression: Age-indeterminate focus of left frontal subcortical ischemia. No hemorrhage. MRI recommended Head/Neck CTA 03/29/25 08:51 IMPRESSION: CTA NECK: 1. No ICA stenosis or other acute arterial abnormality. 2. Lytic bony metastatic disease C2, C5. 3. Lytic bony metastatic disease right scapula with large associated soft tissue component. CTA HEAD: 1. No large vessel arterial occlusive disease or other acute arterial abnormality. Brain MRI 03/30/25 15:18 IMPRESSION: 1. Scattered ossific white matter T2 hyperintensity consistent with chronic small vessel ischemic disease. No acute intracranial process. Venous Doppler Study 03/31/25 17:18 IMPRESSION: 1: No lower extremity deep venous thrombosis. Shoulder X-Ray 04/11/25 15:25 Impression: No acute fracture or malalignment. Chest X-Ray 04/16/25 08:48 IMPRESSION: 1. No acute cardiopulmonary findings given portable technique. 2. Right Mediport unchanged in position. Labs Labs: Laboratory Results - last 24 hr 04/17/25 05:03 WBC 18.2 H RBC 2.88 L Hgb 8.5 L Hct 26.4 L MCV 91.7 MCH 29.5 MCHC 32.2 RDW 17.0 H Plt Count 384 H MPV 8.8 Sodium 127 L Potassium 3.3 L Chloride 100 Carbon Dioxide 20 L Anion Gap 7 BUN 16 Creatinine 0.80 Estim Creat Clear Calc 56 Estimated GFR > 60 Glucose 125 H Calcium 10.0 Magnesium 1.7 Quality VTE Prophylaxis VTE prophylaxis: mechanical ordered
[2025-04-17] MEDS: VANCOMYCIN 1,250 MG/NS 250 ML 1,250 MG/250 ML BAG 166.67 MG IVPB (17:22)
[2025-04-17] MEDS: KETOROLAC 10 MG TABLET PO (18:17)
[2025-04-17] MEDS: FLUTICASONE/SALMETEROL 45-21 MCG INHALER 1 PUFF 2 PUFF INHALATION (21:06)
[2025-04-17] MEDS: MONTELUKAST SODIUM 10 MG TABLET PO (21:56)
[2025-04-18] MEDS: ACETAMINOPHEN 325 MG TABLET 650 MG PO ×2 (03:41→15:38)
[2025-04-18 03:50] VITALS: BP 128/72; PULSE 100; RESP 16; TEMP 37.2; O2SAT 98
[2025-04-18] MEDS: CENTRAL LINE FLUSH 10 ML IV PUSH ×3 (05:29→22:33)
[2025-04-18 05:38] LABS: Hematocrit 25.3 % (37.0-47.0); Hemoglobin 8.0 g/dL (12.0-15.0); Mean Corpuscular HGB Conc 31.6 g/dl (32-36); Mean Corpuscular Hemoglobin 29.3 pg (26-34); Mean Corpuscular Volume 92.7 fl (80-100); Platelet Count Result 402 k/mm3 (150-375); Red Blood Count 2.73 M/mm3 (4.2-5.4); White Blood Count 17.4 K/mm3 (4.5-10.0)
[2025-04-18 06:01] LABS: Anion Gap 7 mmol/L (4-12); Blood Urea Nitrogen 16 mg/dL (7-17); Calcium 9.8 mg/dL (8.4-10.2); Carbon Dioxide 21 mmol/L (22-30); Chloride 99 mmol/L (98-107); Estimated CRCL calculation 53 ml/min; Estimated Glomerular Filt Rate > 60; Glucose 91 mg/dL (65-110); Magnesium 1.8 mg/dL (1.6-2.3); Potassium 3.2 mmol/L (3.4-5.0); Sodium 127 mmol/L (137-145)
[2025-04-18] MEDS: FOLIC ACID 1 MG TABLET PO (08:03)
[2025-04-18] MEDS: ATORVASTATIN 40 MG TABLET PO (08:04)
[2025-04-18] MEDS: PANTOPRAZOLE 40 MG TABLET PO ×2 (08:04→22:31)
[2025-04-18] MEDS: LORATADINE 10 MG TABLET PO (08:04)
[2025-04-18] MEDS: METOPROLOL TARTRATE 25 MG TABLET PO ×2 (08:04→22:31)
[2025-04-18] MEDS: MIDODRINE HCL 10 MG TABLET PO ×3 (08:04→16:30)
[2025-04-18] MEDS: POTASSIUM CHLORIDE 20 MEQ PACKET (FOR LIQUID) 40 MEQ PO (08:07)
[2025-04-18] MEDS: FLUTICASONE/SALMETEROL 45-21 MCG INHALER 1 PUFF 2 PUFF INHALATION ×2 (08:18→20:21)
--- NOTE | 2025-04-18 11:34 | PM.IMPN ---
Progress Note: A&P Assessment and Plan (1) Patent foramen ovale with right to left shunt: Code(s): Q21.12 - Patent foramen ovale Status: Acute (2) Cardiomyopathy: Code(s): I42.9 - Cardiomyopathy, unspecified Status: Acute (3) Hypercalcemia of malignancy: Code(s): E83.52 - Hypercalcemia Status: Acute (4) Hypokalemia: Code(s): E87.6 - Hypokalemia Status: Acute (5) Urinary tract infection: Code(s): N39.0 - Urinary tract infection, site not specified Status: Acute (6) Anemia: Code(s): D64.9 - Anemia, unspecified Status: Acute (7) Ovarian cancer: Code(s): C56.9 - Malignant neoplasm of unspecified ovary Status: Acute (8) Altered mental status: Code(s): R41.82 - Altered mental status, unspecified Status: Acute Plan 59-year-old female with past medical history of stage IV ovarian cancer with metastasis presenting with worsening mental status. She had recent clearly experiencing weakness, reduced appetite, slurring speech These symptoms were a significant change from the patient's baseline just days prior. Patient has been treated with chemo, radiation in the past, currently on maintenance therapy with Keytruda. , CT head without contrast showed age indeterminate focus of left frontal subcortical ischemia, no hemorrhage, CTA head and neck last night showed no ICA stenosis or other acute arterial abnormality, lytic bony metastatic disease C2, C5, lytic bony metastatic disease right scapula with large associated soft tissue component, no large vessel arterial occlusion disease or other acute arterial abnormality. Blood workup showed calcium level of 14.4 . Received calcitonin, zoledronic acid hypercalcemia. 1. Altered mental status/acute encephalopathy: CT with age indeterminate focus of left frontal subcortical ischemia MRI brain unremarkable Echocardiogram with EF of 40-45% with regional wall motion abnormality, PFO Mental status has improved Neurology following 2. UTI: Completed course of ceftriaxone However UA positive for UTI again Restarted ceftriaxone 04/11/2025 Follow urine culture Febrile again 04/12/2025. Switch ceftriaxone to cefepime Follow urine culture # Vaginitis received a dose of fluconazole 04/13/2025 3. Hypercalcemia: Likely secondary to malignancy Received zoledronic acid, calcitonin, IV fluids Hypercalcemia has resolved 4. Anemia: Status post 2 units of PRBC H&H stable H&H dropped today to 7.6. No signs of bleeding. Will recheck this evening and monitor 5. History of metastatic ovarian cancer: MRI brain unremarkable Patient follows up with Oncology at [facility] 6.) Cardiomyopathy: Patent foramen ovale Echo showing EF 40-45% with regional wall motion abnormality and PFO with R-->L shunt Cardiology consulted. LE venous doppler negative for DVT so unlikely paradoxical CVA. Metoprolol tartrate started. Maxide stopped and losartan added Due to HoTN and anemia, Plavix stopped. Continue tele monitoring. Continue statin. Verapamil has been stopped Will need home O2 evaluation before discharge Currently on room air 7. History of hypertension: Continue with losartan, metoprolol Verapamil has been stopped no overnight events. patient is found to lice in her hair, and being treated with permethrin, in isolation, stats did participate in the PT and able to tolerate diet, discussed with her nurse and she is doing better, patient urine culture is positive for enterococcus faecium, multi drug resistant, sensitive to Vancomycin, discussed with clinical pharmacist, will start the antibiotics and will switch over to oral upon discharge, patient remains clinically stable, will monitor. patient remains clinically stable, has no new complaints, will continue IV abx today, and plan was discharge her on 04/17 , however patient is accepted by [facility] and they do not any bed until Sunday at that time will discharge the patient. today patient complaints of right sided shoulder and neck pain, most likely muscular pain, will apply Lidoderm patches and monitor. 8. Code status: Full 9. DVT prophylaxis: SCDs 9. Disposition: Pending placement. 10. Tachycardia with mild fever Re-culture. Chest x-ray negative. UA positive. Blood culture pending. Treat as UTI. With ceftriaxone Subjective Date/time seen: 04/18/25 11:34 Interval history: no overnight events. patient is found to lice in her hair, and being treated with permethrin, in isolation, stats did participate in the PT and able to tolerate diet, discussed with her nurse and she is doing better, patient urine culture is positive for enterococcus faecium, multi drug resistant, sensitive to Vancomycin, discussed with clinical pharmacist, will start the antibiotics and will switch over to oral upon discharge, patient remains clinically stable, will monitor. patient remains clinically stable, has no new complaints, will continue IV abx today, and plan was discharge her on 04/17 , however patient is accepted by [facility] and they do not any bed until Sunday at that time will discharge the patient. today patient complaints of right sided shoulder and neck pain, most likely muscular pain, will apply Lidoderm patches and monitor. Review of Systems Review of Systems: All systems reviewed & are unremarkable except as noted in HPI and below Exam Narrative: Gen -no acute distress Chest -bilateral clear to auscultation CV - Regular rate and rhythm with S1-S2. Abd - soft, NT/ND with positive bowel sounds. Ext - no pedal edema Psych- alert, pleasant and cooperative Skin - Warm and dry. Objective Data Vital Signs Vital Signs: Vital Signs - 24 hr 04/17/25 14:00 04/17/25 21:37 04/17/25 21:50 Temperature 36.6 C 36.7 C Pulse Rate 88 98 Respiratory Rate 16 14 Blood Pressure 113/65 110/54 L Pulse Oximetry 99 99 Oxygen Delivery Room Air 04/17/25 21:56 04/18/25 03:50 04/18/25 08:00 Temperature 37.2 C Pulse Rate 98 100 Respiratory Rate 16 Blood Pressure 128/72 Pulse Oximetry 98 Oxygen Delivery Room Air Intake/Output Intake/Output: Intake & Output 04/15/25 04/16/25 04/17/25 04/18/25 23:59 23:59 23:59 23:59 Intake Total 1550 1020 1010 640 Balance 1550 1020 1010 640 Meds/Results Medications: Active Medications Generic Name Dose Route Start Last Admin Trade Name Freq PRN Reason Stop Dose Admin Acetaminophen 650 mg 03/29/25 19:45 04/18/25 03:41 Acetaminophen 325 Mg Tablet PO 650 mg Q4H PRN Administration Mild Pain (1-3) or Fever Albuterol 2.5 mg 03/29/25 21:50 Albuterol Sulfate Neb 2.5 Mg/3 Ml Inh INHALATION Q4-6H PRN Shortness Of Breath Albuterol 2 puff 04/03/25 17:11 Albuterol Sulfate (*Sp) Aerosol 1 Puff INHALATION Q6HRT PRN Shortness Of Breath Or Wheezing Alteplase, Recombinant 2 mg 04/16/25 09:02 04/16/25 10:24 Alteplase 2 Mg Vial (Cathflo) IV PUSH 2 mg ONCE PRN Administration Line Occlusion Atorvastatin Calcium 40 mg 03/30/25 09:00 04/18/25 08:04 Atorvastatin 40 Mg Tablet PO 40 mg DAILY DANIELE Administration Duloxetine HCl 60 mg 04/14/25 09:00 04/18/25 08:04 Duloxetine Hcl 30 Mg Capsule.Dr PO 60 mg DAILY DANIELE Administration Folic Acid 1 mg 03/30/25 09:00 04/18/25 08:03 Folic Acid 1 Mg Tablet PO 1 mg DAILY DANIELE Administration Heparin Sodium (Beef Lung) 50 units 03/30/25 09:00 04/18/25 09:03 Heparin Flush 50 Units/5 Ml Syringe IV PUSH 50 units QAM DANIELE Administration Heparin Sodium (Beef Lung) 50 units 03/29/25 23:50 Heparin Flush 50 Units/5 Ml Syringe IV PUSH PRN PRN after intermittent infusion Heparin Sodium (Beef Lung) 50 units 03/29/25 23:50 04/18/25 05:29 Heparin Flush 50 Units/5 Ml Syringe IV PUSH 50 units PRN PRN Administration after blood draws Heparin Sodium (Porcine) 500 units 03/29/25 23:50 04/11/25 23:05 Heparin Sodium Lock Flush 500 Units/5 Ml Syringe IV PUSH 500 units PRN PRN Administration see comments below Vancomycin HCl 1,250 mg in 250 mls @ 166.667 mls/hr 04/15/25 16:00 04/17/25 18:52 Vancomycin 1,250 Mg/Ns 250 Ml IVPB 04/18/25 23:59 Infused Q24H DANIELE Infusion Linezolid 600 mg 04/19/25 09:00 Linezolid 600 Mg Tablet PO 04/21/25 21:01 Q12HR DANIELE Loratadine 10 mg 03/30/25 09:00 04/18/25 08:04 Loratadine 10 Mg Tablet PO 10 mg QAM DANIELE Administration Menthol/Methyl Salicylate 1 applic 04/06/25 02:01 04/08/25 11:39 Menthol 10% / Methyl Salicylate 15% 57 Gm Tube TOPICAL 1 applic BID PRN Administration Muscle/Joint Pain Metoprolol Tartrate 25 mg 04/11/25 21:00 04/18/25 08:04 Metoprolol Tartrate 25 Mg Tablet PO 25 mg Q12HR DANIELE Administration Midodrine 10 mg 04/03/25 23:20 04/18/25 08:04 Midodrine Hcl 10 Mg Tablet PO 10 mg TID DANIELE Administration Montelukast Sodium 10 mg 03/29/25 21:00 04/17/25 21:56 Montelukast Sodium 10 Mg Tablet PO 10 mg HS DANIELE Administration Pantoprazole Sodium 40 mg 04/07/25 21:00 04/18/25 08:04 Pantoprazole 40 Mg Tablet PO 40 mg Q12HR DANIELE Administration Polyethylene Glycol 17 gm 04/02/25 09:00 04/18/25 08:31 Polyethylene Glycol 3350 17 Gm Powd.Pack PO Not Given QAM DANIELE Fluticasone/Salmeterol 2 puff 03/29/25 20:00 04/18/25 08:18 Fluticasone/Salmeterol 45-21 Mcg Inhaler 1 Puff INHALATION 2 puff Q12HRT DANIELE Administration Senna 17.2 mg 03/30/25 09:00 04/02/25 08:36 Sennosides 8.6 Mg Tablet PO 17.2 mg On Hold: 04/02/25 08:45 BID DANIELE Administration Sodium Chloride 10 ml 03/30/25 06:00 04/18/25 05:29 Central Line Flush IV PUSH 10 ml Q8HR DANIELE Administration Radiology Results: ITS Impressions Head CT 03/28/25 17:39 Impression: Age-indeterminate focus of left frontal subcortical ischemia. No hemorrhage. MRI recommended Head/Neck CTA 03/29/25 08:51 IMPRESSION: CTA NECK: 1. No ICA stenosis or other acute arterial abnormality. 2. Lytic bony metastatic disease C2, C5. 3. Lytic bony metastatic disease right scapula with large associated soft tissue component. CTA HEAD: 1. No large vessel arterial occlusive disease or other acute arterial abnormality. Brain MRI 03/30/25 15:18 IMPRESSION: 1. Scattered ossific white matter T2 hyperintensity consistent with chronic small vessel ischemic disease. No acute intracranial process. Venous Doppler Study 03/31/25 17:18 IMPRESSION: 1: No lower extremity deep venous thrombosis. Shoulder X-Ray 04/11/25 15:25 Impression: No acute fracture or malalignment. Chest X-Ray 04/16/25 08:48 IMPRESSION: 1. No acute cardiopulmonary findings given portable technique. 2. Right Mediport unchanged in position. Labs Labs: Laboratory Results - last 24 hr 04/18/25 05:28 WBC 17.4 H RBC 2.73 L Hgb 8.0 L Hct 25.3 L MCV 92.7 MCH 29.3 MCHC 31.6 L RDW 17.1 H Plt Count 402 H MPV 8.9 Sodium 127 L Potassium 3.2 L Chloride 99 Carbon Dioxide 21 L Anion Gap 7 BUN 16 Creatinine 0.84 Estim Creat Clear Calc 53 Estimated GFR > 60 Glucose 91 Calcium 9.8 Magnesium 1.8 Quality VTE Prophylaxis VTE prophylaxis: mechanical ordered
[2025-04-18 13:11] VITALS: BP 111/58; PULSE 88; RESP 16; TEMP 36.6; O2SAT 94
[2025-04-18] MEDS: PERMETHRIN 1% LIQUID 59 ML BOTTLE 1 APPLIC TOPICAL (15:02)
[2025-04-18] MEDS: VANCOMYCIN 1,250 MG/NS 250 ML 1,250 MG/250 ML BAG 166 MG IVPB (15:58)
[2025-04-18 20:21] VITALS: PULSE 88; RESP 16
[2025-04-18 20:40] VITALS: BP 108/57; PULSE 93; RESP 16; TEMP 37.1; O2SAT 96
[2025-04-18 22:31] VITALS: PULSE 93
[2025-04-18] MEDS: MONTELUKAST SODIUM 10 MG TABLET PO (22:31)
[2025-04-19] VITALS (7 sets, daily range): BP systolic 110–123; BP diastolic 46–75; PULSE 91–104; RESP 16–18; TEMP 36.4–36.9; O2SAT 96–99
[2025-04-19] MEDS: ACETAMINOPHEN 325 MG TABLET 650 MG PO ×4 (00:56→23:06)
[2025-04-19] MEDS: CENTRAL LINE FLUSH 10 ML IV PUSH ×3 (05:30→23:08)
[2025-04-19 05:43] LABS: Hematocrit 25.1 % (37.0-47.0); Hemoglobin 7.9 g/dL (12.0-15.0); Mean Corpuscular HGB Conc 31.5 g/dl (32-36); Mean Corpuscular Hemoglobin 29.2 pg (26-34); Mean Corpuscular Volume 92.6 fl (80-100); Platelet Count Result 433 k/mm3 (150-375); Red Blood Count 2.71 M/mm3 (4.2-5.4); White Blood Count 18.8 K/mm3 (4.5-10.0)
[2025-04-19 06:09] LABS: Anion Gap 6 mmol/L (4-12); Blood Urea Nitrogen 12 mg/dL (7-17); Calcium 10.3 mg/dL (8.4-10.2); Carbon Dioxide 22 mmol/L (22-30); Chloride 104 mmol/L (98-107); Estimated CRCL calculation 56 ml/min; Estimated Glomerular Filt Rate > 60; Glucose 95 mg/dL (65-110); Magnesium 1.9 mg/dL (1.6-2.3); Potassium 3.3 mmol/L (3.4-5.0); Sodium 132 mmol/L (137-145)
[2025-04-19] MEDS: FLUTICASONE/SALMETEROL 45-21 MCG INHALER 1 PUFF 2 PUFF INHALATION ×2 (07:36→20:18)
[2025-04-19] MEDS: FOLIC ACID 1 MG TABLET PO (09:32)
[2025-04-19] MEDS: ATORVASTATIN 40 MG TABLET PO (09:32)
[2025-04-19] MEDS: METOPROLOL TARTRATE 25 MG TABLET PO ×2 (09:33→23:08)
[2025-04-19] MEDS: LORATADINE 10 MG TABLET PO (09:33)
[2025-04-19] MEDS: MIDODRINE HCL 10 MG TABLET PO ×3 (09:34→17:30)
[2025-04-19] MEDS: PANTOPRAZOLE 40 MG TABLET PO ×2 (09:34→23:07)
[2025-04-19] MEDS: PERMETHRIN 1% LIQUID 59 ML BOTTLE 1 APPLIC TOPICAL (09:35)
[2025-04-19] MEDS: VANCOMYCIN 1,250 MG/NS 250 ML 1,250 MG/250 ML BAG 166.67 MG IVPB (15:07)
--- NOTE | 2025-04-19 17:10 | PM.IMPN ---
Progress Note: A&P Assessment and Plan (1) Patent foramen ovale with right to left shunt: Code(s): Q21.12 - Patent foramen ovale Status: Acute (2) Cardiomyopathy: Code(s): I42.9 - Cardiomyopathy, unspecified Status: Acute (3) Hypercalcemia of malignancy: Code(s): E83.52 - Hypercalcemia Status: Acute (4) Hypokalemia: Code(s): E87.6 - Hypokalemia Status: Acute (5) Urinary tract infection: Code(s): N39.0 - Urinary tract infection, site not specified Status: Acute (6) Anemia: Code(s): D64.9 - Anemia, unspecified Status: Acute (7) Ovarian cancer: Code(s): C56.9 - Malignant neoplasm of unspecified ovary Status: Acute (8) Altered mental status: Code(s): R41.82 - Altered mental status, unspecified Status: Acute Plan 59-year-old female with past medical history of stage IV ovarian cancer with metastasis presenting with worsening mental status. She had recent clearly experiencing weakness, reduced appetite, slurring speech These symptoms were a significant change from the patient's baseline just days prior. Patient has been treated with chemo, radiation in the past, currently on maintenance therapy with Keytruda. , CT head without contrast showed age indeterminate focus of left frontal subcortical ischemia, no hemorrhage, CTA head and neck last night showed no ICA stenosis or other acute arterial abnormality, lytic bony metastatic disease C2, C5, lytic bony metastatic disease right scapula with large associated soft tissue component, no large vessel arterial occlusion disease or other acute arterial abnormality. Blood workup showed calcium level of 14.4 . Received calcitonin, zoledronic acid hypercalcemia. 1. Altered mental status/acute encephalopathy: CT with age indeterminate focus of left frontal subcortical ischemia MRI brain unremarkable Echocardiogram with EF of 40-45% with regional wall motion abnormality, PFO Mental status has improved Neurology following 2. UTI: Completed course of ceftriaxone However UA positive for UTI again Restarted ceftriaxone 04/11/2025 Follow urine culture Febrile again 04/12/2025. Switch ceftriaxone to cefepime Follow urine culture # Vaginitis received a dose of fluconazole 04/13/2025 3. Hypercalcemia: Likely secondary to malignancy Received zoledronic acid, calcitonin, IV fluids Hypercalcemia has resolved 4. Anemia: Status post 2 units of PRBC H&H stable H&H dropped today to 7.6. No signs of bleeding. Will recheck this evening and monitor 5. History of metastatic ovarian cancer: MRI brain unremarkable Patient follows up with Oncology at [facility] 6.) Cardiomyopathy: Patent foramen ovale Echo showing EF 40-45% with regional wall motion abnormality and PFO with R-->L shunt Cardiology consulted. LE venous doppler negative for DVT so unlikely paradoxical CVA. Metoprolol tartrate started. Maxide stopped and losartan added Due to HoTN and anemia, Plavix stopped. Continue tele monitoring. Continue statin. Verapamil has been stopped Will need home O2 evaluation before discharge Currently on room air 7. History of hypertension: Continue with losartan, metoprolol Verapamil has been stopped no overnight events. patient is found to lice in her hair, and being treated with permethrin, in isolation, stats did participate in the PT and able to tolerate diet, discussed with her nurse and she is doing better, patient urine culture is positive for enterococcus faecium, multi drug resistant, sensitive to Vancomycin, discussed with clinical pharmacist, will start the antibiotics and will switch over to oral upon discharge, patient remains clinically stable, will monitor. patient remains clinically stable, has no new complaints, will continue IV abx today, and plan was discharge her on 04/17 , however patient is accepted by [facility] and they do not any bed until Sunday at that time will discharge the patient. on 04/17 patient complained of right sided shoulder and neck pain, most likely muscular pain, will apply Lidoderm patches and monitor. today plan was to discharge to [facility] however patient white counts are rising and etiology is uncertain, patient denies any fever, dysuria, or abdominal pain, will stop her oral Linzess and restart IV vancomycin, did order repeat blood and urine culture, her chest x-ray on 04/18 did not show pulmonary pathology, will monitor follow up repeat blood and urine cultures. 8. Code status: Full 9. DVT prophylaxis: SCDs 9. Disposition: Pending placement. 10. Tachycardia with mild fever Re-culture. Chest x-ray negative. UA positive. Blood culture pending. Treat as UTI. With ceftriaxone Subjective Date/time seen: 04/19/25 17:10 Interval history: no overnight events. patient is found to lice in her hair, and being treated with permethrin, in isolation, stats did participate in the PT and able to tolerate diet, discussed with her nurse and she is doing better, patient urine culture is positive for enterococcus faecium, multi drug resistant, sensitive to Vancomycin, discussed with clinical pharmacist, will start the antibiotics and will switch over to oral upon discharge, patient remains clinically stable, will monitor. patient remains clinically stable, has no new complaints, will continue IV abx today, and plan was discharge her on 04/17 , however patient is accepted by [facility] and they do not any bed until Sunday at that time will discharge the patient. on 04/17 patient complained of right sided shoulder and neck pain, most likely muscular pain, will apply Lidoderm patches and monitor. today plan was to discharge to [facility] however patient white counts are rising and etiology is uncertain, patient denies any fever, dysuria, or abdominal pain, will stop her oral Linzess and restart IV vancomycin, did order repeat blood and urine culture, her chest x-ray on 04/18 did not show pulmonary pathology, will monitor follow up repeat blood and urine cultures. Exam Narrative: Gen -no acute distress Chest -bilateral clear to auscultation CV - Regular rate and rhythm with S1-S2. Abd - soft, NT/ND with positive bowel sounds. Ext - no pedal edema Psych- alert, pleasant and cooperative Skin - Warm and dry. Objective Data Vital Signs Vital Signs: Vital Signs - 24 hr 04/18/25 20:21 04/18/25 20:40 04/18/25 22:20 Temperature 37.1 C Pulse Rate 88 93 Respiratory Rate 16 16 Blood Pressure 108/57 L Pulse Oximetry 96 Oxygen Delivery Room Air Fraction of Inspired Oxygen 04/18/25 22:31 04/19/25 05:01 04/19/25 09:31 Temperature 36.4 C L 36.4 C L Pulse Rate 93 92 104 H Respiratory Rate 16 18 Blood Pressure 123/75 110/46 L Pulse Oximetry 98 99 Oxygen Delivery Fraction of Inspired Oxygen 04/19/25 09:33 04/19/25 09:34 04/19/25 09:34 Temperature 36.4 C L Pulse Rate 104 H 104 H 104 H Respiratory Rate 18 18 Blood Pressure 110/46 L Pulse Oximetry 99 99 Oxygen Delivery Room Air Fraction of Inspired Oxygen 21 04/19/25 14:00 Temperature 36.8 C Pulse Rate 91 Respiratory Rate 18 Blood Pressure 120/71 Pulse Oximetry 96 Oxygen Delivery Fraction of Inspired Oxygen Intake/Output Intake/Output: Intake & Output 04/16/25 04/17/25 04/18/25 04/19/25 23:59 23:59 23:59 23:59 Intake Total 1020 1010 1730 790 Output Total 725 Balance 1020 1010 1730 65 Meds/Results Medications: Active Medications Generic Name Dose Route Start Last Admin Trade Name Freq PRN Reason Stop Dose Admin Acetaminophen 650 mg 03/29/25 19:45 04/19/25 15:06 Acetaminophen 325 Mg Tablet PO 650 mg Q4H PRN Administration Mild Pain (1-3) or Fever Albuterol 2.5 mg 03/29/25 21:50 Albuterol Sulfate Neb 2.5 Mg/3 Ml Inh INHALATION Q4-6H PRN Shortness Of Breath Albuterol 2 puff 04/03/25 17:11 Albuterol Sulfate (*Sp) Aerosol 1 Puff INHALATION Q6HRT PRN Shortness Of Breath Or Wheezing Alteplase, Recombinant 2 mg 04/16/25 09:02 04/16/25 10:24 Alteplase 2 Mg Vial (Cathflo) IV PUSH 2 mg ONCE PRN Administration Line Occlusion Atorvastatin Calcium 40 mg 03/30/25 09:00 04/19/25 09:32 Atorvastatin 40 Mg Tablet PO 40 mg DAILY DANIELE Administration Duloxetine HCl 60 mg 04/14/25 09:00 04/19/25 09:32 Duloxetine Hcl 30 Mg Capsule.Dr PO 60 mg DAILY DANIELE Administration Folic Acid 1 mg 03/30/25 09:00 04/19/25 09:32 Folic Acid 1 Mg Tablet PO 1 mg DAILY DANIELE Administration Heparin Sodium (Beef Lung) 50 units 03/30/25 09:00 04/19/25 09:33 Heparin Flush 50 Units/5 Ml Syringe IV PUSH 50 units QAM DANIELE Administration Heparin Sodium (Beef Lung) 50 units 03/29/25 23:50 Heparin Flush 50 Units/5 Ml Syringe IV PUSH PRN PRN after intermittent infusion Heparin Sodium (Beef Lung) 50 units 03/29/25 23:50 04/19/25 05:31 Heparin Flush 50 Units/5 Ml Syringe IV PUSH 50 units PRN PRN Administration after blood draws Heparin Sodium (Porcine) 500 units 03/29/25 23:50 04/11/25 23:05 Heparin Sodium Lock Flush 500 Units/5 Ml Syringe IV PUSH 500 units PRN PRN Administration see comments below Vancomycin HCl 1,250 mg in 250 mls @ 166.667 mls/hr 04/19/25 16:00 04/19/25 15:07 Vancomycin 1,250 Mg/Ns 250 Ml IVPB 166.67 mls/hr Q24H DANIELE Administration Loratadine 10 mg 03/30/25 09:00 04/19/25 09:33 Loratadine 10 Mg Tablet PO 10 mg QAM DANIELE Administration Menthol/Methyl Salicylate 1 applic 04/06/25 02:01 04/08/25 11:39 Menthol 10% / Methyl Salicylate 15% 57 Gm Tube TOPICAL 1 applic BID PRN Administration Muscle/Joint Pain Metoprolol Tartrate 25 mg 04/11/25 21:00 04/19/25 09:33 Metoprolol Tartrate 25 Mg Tablet PO 25 mg Q12HR DANIELE Administration Midodrine 10 mg 04/03/25 23:20 04/19/25 13:34 Midodrine Hcl 10 Mg Tablet PO 10 mg TID DANIELE Administration Montelukast Sodium 10 mg 03/29/25 21:00 04/18/25 22:31 Montelukast Sodium 10 Mg Tablet PO 10 mg HS DANIELE Administration Pantoprazole Sodium 40 mg 04/07/25 21:00 04/19/25 09:34 Pantoprazole 40 Mg Tablet PO 40 mg Q12HR DANIELE Administration Polyethylene Glycol 17 gm 04/02/25 09:00 04/19/25 09:34 Polyethylene Glycol 3350 17 Gm Powd.Pack PO 17 gm QAM DANIELE Administration Fluticasone/Salmeterol 2 puff 03/29/25 20:00 04/19/25 07:36 Fluticasone/Salmeterol 45-21 Mcg Inhaler 1 Puff INHALATION 2 puff Q12HRT DANIELE Administration Senna 17.2 mg 03/30/25 09:00 04/02/25 08:36 Sennosides 8.6 Mg Tablet PO 17.2 mg On Hold: 04/02/25 08:45 BID DANIELE Administration Sodium Chloride 10 ml 03/30/25 06:00 04/19/25 13:34 Central Line Flush IV PUSH 10 ml Q8HR DANIELE Administration Radiology Results: ITS Impressions Head CT 03/28/25 17:39 Impression: Age-indeterminate focus of left frontal subcortical ischemia. No hemorrhage. MRI recommended Head/Neck CTA 03/29/25 08:51 IMPRESSION: CTA NECK: 1. No ICA stenosis or other acute arterial abnormality. 2. Lytic bony metastatic disease C2, C5. 3. Lytic bony metastatic disease right scapula with large associated soft tissue component. CTA HEAD: 1. No large vessel arterial occlusive disease or other acute arterial abnormality. Brain MRI 03/30/25 15:18 IMPRESSION: 1. Scattered ossific white matter T2 hyperintensity consistent with chronic small vessel ischemic disease. No acute intracranial process. Venous Doppler Study 03/31/25 17:18 IMPRESSION: 1: No lower extremity deep venous thrombosis. Shoulder X-Ray 04/11/25 15:25 Impression: No acute fracture or malalignment. Chest X-Ray 04/16/25 08:48 IMPRESSION: 1. No acute cardiopulmonary findings given portable technique. 2. Right Mediport unchanged in position. Labs Labs: Laboratory Results - last 24 hr 04/19/25 05:29 WBC 18.8 H RBC 2.71 L Hgb 7.9 L Hct 25.1 L MCV 92.6 MCH 29.2 MCHC 31.5 L RDW 17.0 H Plt Count 433 H MPV 9.0 Sodium 132 L Potassium 3.3 L Chloride 104 Carbon Dioxide 22 Anion Gap 6 BUN 12 Creatinine 0.80 Estim Creat Clear Calc 56 Estimated GFR > 60 Glucose 95 Calcium 10.3 H Magnesium 1.9
--- NOTE | 2025-04-19 20:59 | PC.NURSE ---
Documentation r/t PORT dressing/needle change does not reflect updated changes that were reported on 04/16. Per dressing and PORT sign in patient room, the needle, dressing, and caps were changed on 04/16 r/t sluggish blood return. PORT access is currently WNL.
[2025-04-19] MEDS: MONTELUKAST SODIUM 10 MG TABLET PO (23:07)
[2025-04-19] MEDS: MENTHOL 10% / METHYL SALICYLATE 15% 57 GM TUBE 1 APPLIC TOPICAL (23:09)
[2025-04-20] VITALS (11 sets, daily range): BP systolic 105–150; BP diastolic 44–86; PULSE 82–107; RESP 16–18; TEMP 36.4–37.8; O2SAT 97–100
[2025-04-20] MEDS: HYDROcodone/acetaminophen (*CRX) 5-325 MG TABLET 1 TAB PO (01:11)
[2025-04-20] MEDS: CENTRAL LINE FLUSH 10 ML IV PUSH ×3 (05:28→21:58)
[2025-04-20 05:48] LABS: Hematocrit 27.7 % (37.0-47.0); Hemoglobin 8.6 g/dL (12.0-15.0); Mean Corpuscular HGB Conc 31.0 g/dl (32-36); Mean Corpuscular Hemoglobin 29.3 pg (26-34); Mean Corpuscular Volume 94.2 fl (80-100); Platelet Count Result 450 k/mm3 (150-375); Red Blood Count 2.94 M/mm3 (4.2-5.4); White Blood Count 20.8 K/mm3 (4.5-10.0)
[2025-04-20 06:01] LABS: Anion Gap 7 mmol/L (4-12); Blood Urea Nitrogen 11 mg/dL (7-17); Calcium 10.5 mg/dL (8.4-10.2); Carbon Dioxide 24 mmol/L (22-30); Chloride 100 mmol/L (98-107); Estimated CRCL calculation 54 ml/min; Estimated Glomerular Filt Rate > 60; Glucose 95 mg/dL (65-110); Magnesium 1.8 mg/dL (1.6-2.3); Potassium 3.5 mmol/L (3.4-5.0); Sodium 131 mmol/L (137-145)
--- NOTE | 2025-04-20 06:03 | PC.NURSE ---
RN called sign maintenance to notify of possible sepsis risk r/t increased WBC; RN was advised to alert daytime provider with results.
[2025-04-20] MEDS: FLUTICASONE/SALMETEROL 45-21 MCG INHALER 1 PUFF 2 PUFF INHALATION ×2 (07:13→21:15)
[2025-04-20] MEDS: MIDODRINE HCL 10 MG TABLET PO ×3 (08:44→17:30)
[2025-04-20] MEDS: METOPROLOL TARTRATE 25 MG TABLET PO ×2 (08:44→21:56)
[2025-04-20] MEDS: LORATADINE 10 MG TABLET PO (08:44)
[2025-04-20] MEDS: FOLIC ACID 1 MG TABLET PO (08:44)
[2025-04-20] MEDS: ATORVASTATIN 40 MG TABLET PO (08:44)
[2025-04-20] MEDS: PANTOPRAZOLE 40 MG TABLET PO ×2 (08:44→21:57)
[2025-04-20] MEDS: ACETAMINOPHEN 325 MG TABLET 650 MG PO (09:41)
--- NOTE | 2025-04-20 09:48 | PCNFU ---
Nutrition Follow-Up Complete: Inadequate oral intake related to altered mental status as evidenced by report of poor intake 2 weeks PO intake >50% - Slow progress with goal. Continue same goal Goal: Pt current nutrition is Regular diet, Ensure Plus HP BID (350 kcal, 20 g protein). Nutrition recommendation: No new recommendations. Continue same nutrition care plan and orders. Agree with orders Last recorded weight is 62.8 kg. Bowel Motility: +2 BMs Labs Reviewed: Hgb 8.6, Hct 27.7, Na 131, Ca 10.5 Meds Noted: Folic acid, senna, miralax, protonis Skin: No skin issues Additional Notes: Intakes remain poor, 0-50%. Refused breakfast. Discharge plan to rehab. Continue with current nutrition care plan and monitoring. Monitoring intakes, weights, labs, supplement tolerance, feeding ability, plan of care Follow up in 3 days
[2025-04-20] MEDS: KETOROLAC 10 MG TABLET PO ×2 (11:20→17:31)
[2025-04-20] MEDS: SODIUM CHLORIDE 0.9% IV 1,000 ML 125 ML IV CONT ×2 (13:39→21:58)
--- NOTE | 2025-04-20 14:03 | PM.IMPN ---
Progress Note: A&P Assessment and Plan (1) Patent foramen ovale with right to left shunt: Code(s): Q21.12 - Patent foramen ovale Status: Acute (2) Cardiomyopathy: Code(s): I42.9 - Cardiomyopathy, unspecified Status: Acute (3) Hypercalcemia of malignancy: Code(s): E83.52 - Hypercalcemia Status: Acute (4) Hypokalemia: Code(s): E87.6 - Hypokalemia Status: Acute (5) Urinary tract infection: Code(s): N39.0 - Urinary tract infection, site not specified Status: Acute (6) Anemia: Code(s): D64.9 - Anemia, unspecified Status: Acute (7) Ovarian cancer: Code(s): C56.9 - Malignant neoplasm of unspecified ovary Status: Acute (8) Altered mental status: Code(s): R41.82 - Altered mental status, unspecified Status: Acute Plan 59-year-old female with past medical history of stage IV ovarian cancer with metastasis presenting with worsening mental status. She had recent clearly experiencing weakness, reduced appetite, slurring speech These symptoms were a significant change from the patient's baseline just days prior. Patient has been treated with chemo, radiation in the past, currently on maintenance therapy with Keytruda. , CT head without contrast showed age indeterminate focus of left frontal subcortical ischemia, no hemorrhage, CTA head and neck last night showed no ICA stenosis or other acute arterial abnormality, lytic bony metastatic disease C2, C5, lytic bony metastatic disease right scapula with large associated soft tissue component, no large vessel arterial occlusion disease or other acute arterial abnormality. Blood workup showed calcium level of 14.4 . Received calcitonin, zoledronic acid hypercalcemia. 1. Altered mental status/acute encephalopathy: CT with age indeterminate focus of left frontal subcortical ischemia MRI brain unremarkable Echocardiogram with EF of 40-45% with regional wall motion abnormality, PFO Mental status has improved Neurology following 2. UTI: Completed course of ceftriaxone However UA positive for UTI again Restarted ceftriaxone 04/11/2025 Follow urine culture Febrile again 04/12/2025. Switch ceftriaxone to cefepime Follow urine culture # Vaginitis received a dose of fluconazole 04/13/2025 3. Hypercalcemia: Likely secondary to malignancy Received zoledronic acid, calcitonin, IV fluids Hypercalcemia has resolved 4. Anemia: Status post 2 units of PRBC H&H stable H&H dropped today to 7.6. No signs of bleeding. Will recheck this evening and monitor 5. History of metastatic ovarian cancer: MRI brain unremarkable Patient follows up with Oncology at [facility] 6.) Cardiomyopathy: Patent foramen ovale Echo showing EF 40-45% with regional wall motion abnormality and PFO with R-->L shunt Cardiology consulted. LE venous doppler negative for DVT so unlikely paradoxical CVA. Metoprolol tartrate started. Maxide stopped and losartan added Due to HoTN and anemia, Plavix stopped. Continue tele monitoring. Continue statin. Verapamil has been stopped Will need home O2 evaluation before discharge Currently on room air 7. History of hypertension: Continue with losartan, metoprolol Verapamil has been stopped no overnight events. patient is found to lice in her hair, and being treated with permethrin, in isolation, stats did participate in the PT and able to tolerate diet, discussed with her nurse and she is doing better, patient urine culture is positive for enterococcus faecium, multi drug resistant, sensitive to Vancomycin, discussed with clinical pharmacist, will start the antibiotics and will switch over to oral upon discharge, patient remains clinically stable, will monitor. patient remains clinically stable, has no new complaints, will continue IV abx today, and plan was discharge her on 04/17 , however patient is accepted by [facility] and they do not any bed until Sunday at that time will discharge the patient. on 04/17 patient complained of right sided shoulder and neck pain, most likely muscular pain, will apply Lidoderm patches and monitor. plan was to discharge to [facility] however patient white counts are rising and etiology is uncertain, patient denies any fever, dysuria, or abdominal pain, stopped her oral Linzess and restarted IV vancomycin, did order repeat blood and urine culture, her chest x-ray on 04/18 did not show pulmonary pathology, will consult ID for further evaluation and recommendation, will monitor follow up repeat blood and urine cultures. 8. Code status: Full 9. DVT prophylaxis: SCDs 9. Disposition: Pending placement. 10. Tachycardia with mild fever Re-culture. Chest x-ray negative. UA positive. Blood culture pending. Treat as UTI. With ceftriaxone Subjective Date/time seen: 04/20/25 14:03 Interval history: no overnight events. patient is found to lice in her hair, and being treated with permethrin, in isolation, stats did participate in the PT and able to tolerate diet, discussed with her nurse and she is doing better, patient urine culture is positive for enterococcus faecium, multi drug resistant, sensitive to Vancomycin, discussed with clinical pharmacist, will start the antibiotics and will switch over to oral upon discharge, patient remains clinically stable, will monitor. patient remains clinically stable, has no new complaints, will continue IV abx today, and plan was discharge her on 04/17 , however patient is accepted by [facility] and they do not any bed until Sunday at that time will discharge the patient. on 04/17 patient complained of right sided shoulder and neck pain, most likely muscular pain, will apply Lidoderm patches and monitor. plan was to discharge to [facility] however patient white counts are rising and etiology is uncertain, patient denies any fever, dysuria, or abdominal pain, stopped her oral Linzess and restarted IV vancomycin, did order repeat blood and urine culture, her chest x-ray on 04/18 did not show pulmonary pathology, will consult ID for further evaluation and recommendation, will monitor follow up repeat blood and urine cultures. Review of Systems Review of Systems: All systems reviewed & are unremarkable except as noted in HPI and below ROS unobtainable: Yes unobtainable due to medical condition and unobtainable due to mental status Exam Narrative: Gen -no acute distress Chest -bilateral clear to auscultation CV - Regular rate and rhythm with S1-S2. Abd - soft, NT/ND with positive bowel sounds. Ext - no pedal edema Psych- alert, pleasant and cooperative Skin - Warm and dry. Objective Data Vital Signs Vital Signs: Vital Signs - 24 hr 04/19/25 20:00 04/19/25 20:08 04/19/25 23:08 Temperature 36.9 C Pulse Rate 98 99 Respiratory Rate 17 Blood Pressure 117/68 Pulse Oximetry 99 Oxygen Delivery Room Air Fraction of Inspired Oxygen 04/20/25 01:15 04/20/25 03:59 04/20/25 07:13 Temperature 37.0 C 36.9 C Pulse Rate 94 92 84 Respiratory Rate 18 16 16 Blood Pressure 116/60 105/44 L Pulse Oximetry 98 97 Oxygen Delivery Fraction of Inspired Oxygen 04/20/25 08:41 04/20/25 08:44 04/20/25 08:44 Temperature 36.7 C 36.7 C Pulse Rate 106 H 106 H 106 H Respiratory Rate 18 18 Blood Pressure 150/86 H 150/86 H Pulse Oximetry 100 100 Oxygen Delivery Fraction of Inspired Oxygen 04/20/25 08:44 04/20/25 09:37 04/20/25 09:38 Temperature 37.8 C H Pulse Rate 106 H 103 H 107 H Respiratory Rate 18 Blood Pressure 141/71 H 142/77 H Pulse Oximetry 100 Oxygen Delivery Room Air Fraction of Inspired Oxygen 21 04/20/25 13:17 Temperature 36.4 C L Pulse Rate 90 Respiratory Rate 16 Blood Pressure 116/70 Pulse Oximetry 97 Oxygen Delivery Fraction of Inspired Oxygen Intake/Output Intake/Output: Intake & Output 04/17/25 04/18/25 04/19/25 04/20/25 23:59 23:59 23:59 23:59 Intake Total 1010 1730 1520 300 Output Total 725 Balance 1010 1730 795 300 Meds/Results Medications: Active Medications Generic Name Dose Route Start Last Admin Trade Name Freq PRN Reason Stop Dose Admin Acetaminophen 650 mg 03/29/25 19:45 04/20/25 09:41 Acetaminophen 325 Mg Tablet PO 650 mg Q4H PRN Administration Mild Pain (1-3) or Fever Albuterol 2.5 mg 03/29/25 21:50 Albuterol Sulfate Neb 2.5 Mg/3 Ml Inh INHALATION Q4-6H PRN Shortness Of Breath Albuterol 2 puff 04/03/25 17:11 Albuterol Sulfate (*Sp) Aerosol 1 Puff INHALATION Q6HRT PRN Shortness Of Breath Or Wheezing Alteplase, Recombinant 2 mg 04/16/25 09:02 04/16/25 10:24 Alteplase 2 Mg Vial (Cathflo) IV PUSH 2 mg ONCE PRN Administration Line Occlusion Amoxicillin/Clavulanate Potassium 1 tablet 04/20/25 21:00 Amoxicillin/Clavulanate K 875-125 Mg Tab PO 04/25/25 20:59 Q12HR DANIELE Atorvastatin Calcium 40 mg 03/30/25 09:00 04/20/25 08:44 Atorvastatin 40 Mg Tablet PO 40 mg DAILY DANIELE Administration Doxycycline Hyclate 100 mg 04/20/25 21:00 Doxycycline Hyclate 100 Mg Tablet PO 04/25/25 20:59 Q12HR DANIELE Duloxetine HCl 60 mg 04/14/25 09:00 04/20/25 08:44 Duloxetine Hcl 30 Mg Capsule.Dr PO 60 mg DAILY DANIELE Administration Folic Acid 1 mg 03/30/25 09:00 04/20/25 08:44 Folic Acid 1 Mg Tablet PO 1 mg DAILY DANIELE Administration Heparin Sodium (Beef Lung) 50 units 03/30/25 09:00 04/20/25 08:44 Heparin Flush 50 Units/5 Ml Syringe IV PUSH 50 units QAM DANIELE Administration Heparin Sodium (Beef Lung) 50 units 03/29/25 23:50 Heparin Flush 50 Units/5 Ml Syringe IV PUSH PRN PRN after intermittent infusion Heparin Sodium (Beef Lung) 50 units 03/29/25 23:50 04/20/25 05:30 Heparin Flush 50 Units/5 Ml Syringe IV PUSH 50 units PRN PRN Administration after blood draws Heparin Sodium (Porcine) 500 units 03/29/25 23:50 04/11/25 23:05 Heparin Sodium Lock Flush 500 Units/5 Ml Syringe IV PUSH 500 units PRN PRN Administration see comments below Sodium Chloride 1,000 mls @ 125 mls/hr 04/20/25 13:25 04/20/25 13:39 Normal Saline Iv IV CONT 125 mls/hr .Q8H DANIELE Administration Ketorolac Tromethamine 10 mg 04/20/25 10:08 04/20/25 11:20 Ketorolac 10 Mg Tablet PO 10 mg Q6H PRN Administration Pain Rated 4-6 Loratadine 10 mg 03/30/25 09:00 04/20/25 08:44 Loratadine 10 Mg Tablet PO 10 mg QAM DANIELE Administration Menthol/Methyl Salicylate 1 applic 04/06/25 02:01 04/19/25 23:09 Menthol 10% / Methyl Salicylate 15% 57 Gm Tube TOPICAL 1 applic BID PRN Administration Muscle/Joint Pain Metoprolol Tartrate 25 mg 04/11/25 21:00 04/20/25 08:44 Metoprolol Tartrate 25 Mg Tablet PO 25 mg Q12HR DANIELE Administration Midodrine 10 mg 04/03/25 23:20 04/20/25 13:03 Midodrine Hcl 10 Mg Tablet PO 10 mg TID DANIELE Administration Montelukast Sodium 10 mg 03/29/25 21:00 04/19/25 23:07 Montelukast Sodium 10 Mg Tablet PO 10 mg HS DANIELE Administration Ondansetron HCl 4 mg 04/20/25 10:08 Ondansetron Inj 4 Mg/2 Ml Vial IV PUSH Q4H PRN Nausea And Vomiting Pantoprazole Sodium 40 mg 04/07/25 21:00 04/20/25 08:44 Pantoprazole 40 Mg Tablet PO 40 mg Q12HR DANIELE Administration Polyethylene Glycol 17 gm 04/02/25 09:00 04/20/25 08:44 Polyethylene Glycol 3350 17 Gm Powd.Pack PO Not Given QAM DANIELE Fluticasone/Salmeterol 2 puff 03/29/25 20:00 04/20/25 07:13 Fluticasone/Salmeterol 45-21 Mcg Inhaler 1 Puff INHALATION 2 puff Q12HRT DANIELE Administration Senna 17.2 mg 03/30/25 09:00 04/02/25 08:36 Sennosides 8.6 Mg Tablet PO 17.2 mg On Hold: 04/02/25 08:45 BID DANIELE Administration Sodium Chloride 10 ml 03/30/25 06:00 04/20/25 13:03 Central Line Flush IV PUSH 10 ml Q8HR DANIELE Administration Radiology Results: ITS Impressions Head CT 03/28/25 17:39 Impression: Age-indeterminate focus of left frontal subcortical ischemia. No hemorrhage. MRI recommended Head/Neck CTA 03/29/25 08:51 IMPRESSION: CTA NECK: 1. No ICA stenosis or other acute arterial abnormality. 2. Lytic bony metastatic disease C2, C5. 3. Lytic bony metastatic disease right scapula with large associated soft tissue component. CTA HEAD: 1. No large vessel arterial occlusive disease or other acute arterial abnormality. Brain MRI 03/30/25 15:18 IMPRESSION: 1. Scattered ossific white matter T2 hyperintensity consistent with chronic small vessel ischemic disease. No acute intracranial process. Venous Doppler Study 03/31/25 17:18 IMPRESSION: 1: No lower extremity deep venous thrombosis. Shoulder X-Ray 04/11/25 15:25 Impression: No acute fracture or malalignment. Chest X-Ray 04/16/25 08:48 IMPRESSION: 1. No acute cardiopulmonary findings given portable technique. 2. Right Mediport unchanged in position. Labs Labs: Laboratory Results - last 24 hr 04/20/25 05:40 WBC 20.8 H RBC 2.94 L Hgb 8.6 L Hct 27.7 L MCV 94.2 MCH 29.3 MCHC 31.0 L RDW 17.2 H Plt Count 450 H MPV 8.8 Sodium 131 L Potassium 3.5 Chloride 100 Carbon Dioxide 24 Anion Gap 7 BUN 11 Creatinine 0.82 Estim Creat Clear Calc 54 Estimated GFR > 60 Glucose 95 Calcium 10.5 H Magnesium 1.8 Quality VTE Prophylaxis VTE prophylaxis: mechanical ordered
--- NOTE | 2025-04-20 19:35 | WPDIDCN ---
Assessment and Plan Assessment and plan (1) Urinary tract infection: Code(s): N39.0 - Urinary tract infection, site not specified Status: Acute (2) Ovarian cancer: Code(s): C56.9 - Malignant neoplasm of unspecified ovary Status: Acute Plan #Leukocytosis following treatment for bacteriuria v. true UTI. Enterococcus (amp resistant). s/p vanc r/o pneumonia Follow for any diarrhea; would then assess for Cdiff. REC Augmentin and doxy trial Check CXR Augmentin will have coverage for urine isolate even though amp-resistant Follow wbc trend Follow for diarrhea Monitor for aspiration Pt examined via telemedicine with HIPPA-protected audio-visual interface with pt at [facility] in [place], [place] and me in my office in [place], [place]. HPI Data of Consult Date/Time: 04/20/25 19:35 Requesting Physician: Olimpia Velasquez MD Primary Care Provider: Elyse Pinto, SEED SPECIALIST Consult Narrative Reason for consult: leukocytosis. fever. Narrative: Ilinaa Montero is a 59 year old female Of present illness and the mental status changes. Initially concern for UTI. This started on ceftriaxone greatest improvement. Enterococcus was clear.. Ampicillin resistant. Started on vancomycin. not in the bloodstream. Feels better. more alert. had low-grade temps and persistent leukocytosis. previous CXR negative for pneumonia. No phlebitis. no Diarrhea. Review of Systems Review of Systems: reviewed. as per HPI [facility] Past Medical History Medical History (Updated 04/06/25 @ 13:01 by Александр Murray MD) Hypertension Benign breast lumps Surgical History Surgical History H/O: hysterectomy Family History Family History Sibling Diabetes mellitus Mother Breast cancer in female Daughter Hypertension Other Unknown family medical history Social History Social History Smoking packs per day: 1 Smoking cigarettes per day: 20.0 Years smoked: 30 Smoking pack-years: 30.00 Smoking status: Former smoker Tobacco type: cigarettes Smokeless tobacco user: other Second hand tobacco smoke exposure: No Smoking end date: 07/09/15 Additional smoking assessment comments: Smokes marijuana and chews nicotine gum Alcohol intake: former Drinks per week: 0 Substance use: current Substance use type: marijuana Last use: a week ago Lack of Transportation: YES Lack of Food: Never True Current Housing: I Have Housing Concerned About Future Housing: No Difficulty Paying Gas/Electric Bills: No Difficulty Paying for Meds: No Currently Unemployed: No Education: High School Diploma/GED Difficulty w/ Childcare or Family Care: No Living arrangements: with family Occupation/Education: other Gender identity (if verbalized by the patient): Female Spiritual care concerns: No Meds Home Medications and Allergies Home Medications ?Medication ?Instructions ?Recorded ?Confirmed ?Type inhalational spacing device #1 ea 01/27/20 03/29/25 Rx (OptiChamber Amber [facility] spacer) Symbicort 80 mcg-4.5 mcg/actuation 2 puff inhalation Q12H #10.2 grams 08/04/21 03/29/25 Rx HFA aerosol inhaler (budesonide-formoterol) albuterol sulfate 90 mcg/actuation 2 inh inhalation Q6H PRN shortness 11/08/21 03/29/25 Rx aerosol inhaler of breath or wheezing #1 ea cholecalciferol (vitamin D3) 125 125 mcg PO DAILY 11/08/21 03/29/25 History mcg (5,000 unit) capsule clonazepam 1 mg tablet 1 mg PO TID 11/08/21 03/29/25 History triamterene 37.5 1 cap PO DAILY 11/08/21 03/29/25 History mg-hydrochlorothiazide 25 mg capsule verapamil 180 mg 24 hr 180 mg PO DAILY 11/08/21 03/29/25 History capsule,extended release albuterol sulfate 2.5 mg/3 mL See Rx Instructions .Route 07/31/22 03/29/25 Rx (0.083 %) solution for nebulization .COMPLEX #180 mL atorvastatin 40 mg tablet 40 mg PO DAILY 11/01/22 03/29/25 History duloxetine 30 mg capsule,delayed 30 mg PO DAILY 03/29/25 03/29/25 History release folic acid 1 mg tablet 1 mg PO DAILY 03/29/25 03/29/25 History loratadine 10 mg capsule 10 mg PO Q24H 03/29/25 03/29/25 History montelukast 10 mg tablet 10 mg PO QPM 03/29/25 03/29/25 History ondansetron HCl 8 mg tablet 8 mg PO Q12H PRN nausea and 03/29/25 03/29/25 History vomiting sennosides 8.6 mg capsule (senna) 17.2 mg PO BID 03/29/25 03/29/25 History Allergies Allergy/AdvReac Type Severity Reaction Status Date / Time mushroom Allergy Severe Anaphylaxis Verified 03/29/25 22:16 varenicline (From Chantix) Allergy Severe Depression Verified 03/29/25 22:16 bupropion (From Wellbutrin) AdvReac Severe Depression Verified 03/29/25 22:16 Vital Signs Vital Signs - 24 hr 04/19/25 20:00 04/19/25 20:08 04/19/25 23:08 Temperature 36.9 C Pulse Rate 98 99 Respiratory Rate 17 Blood Pressure 117/68 Pulse Oximetry 99 Oxygen Delivery Room Air Fraction of Inspired Oxygen 04/20/25 01:15 04/20/25 03:59 04/20/25 07:13 Temperature 37.0 C 36.9 C Pulse Rate 94 92 84 Respiratory Rate 18 16 16 Blood Pressure 116/60 105/44 L Pulse Oximetry 98 97 Oxygen Delivery Fraction of Inspired Oxygen 04/20/25 08:41 04/20/25 08:44 04/20/25 08:44 Temperature 36.7 C 36.7 C Pulse Rate 106 H 106 H 106 H Respiratory Rate 18 18 Blood Pressure 150/86 H 150/86 H Pulse Oximetry 100 100 Oxygen Delivery Fraction of Inspired Oxygen 04/20/25 08:44 04/20/25 09:37 04/20/25 09:38 Temperature 37.8 C H Pulse Rate 106 H 103 H 107 H Respiratory Rate 18 Blood Pressure 141/71 H 142/77 H Pulse Oximetry 100 Oxygen Delivery Room Air Fraction of Inspired Oxygen 21 04/20/25 13:17 Temperature 36.4 C L Pulse Rate 90 Respiratory Rate 16 Blood Pressure 116/70 Pulse Oximetry 97 Oxygen Delivery Fraction of Inspired Oxygen Exam Narrative: Awake. HABEMATOLEL> no distress. nonlabored breathing. on RA No phlebitis. abd not distended. Results Labs 04/20/25 05:40 04/20/25 05:40 Labs: Short CBC 04/20/25 Range/Units 05:40 WBC 20.8 H (4.5-10.0) K/mm3 Hgb 8.6 L (12.0-15.0) g/dL Hct 27.7 L (37.0-47.0) % Plt Count 450 H (150-375) k/mm3 [facility] 04/20/25 05:40 Sodium 131 L Potassium 3.5 Chloride 100 Carbon Dioxide 24 BUN 11 Creatinine 0.82 Glucose 95 Calcium 10.5 H
[2025-04-20] MEDS: DOXYCYCLINE HYCLATE 100 MG TABLET PO (21:56)
[2025-04-20] MEDS: MONTELUKAST SODIUM 10 MG TABLET PO (21:56)
[2025-04-21] VITALS (9 sets, daily range): BP systolic 116–138; BP diastolic 64–74; PULSE 85–100; RESP 16–24; TEMP 36.5–38.3; O2SAT 96–98
[2025-04-21] MEDS: ACETAMINOPHEN 325 MG TABLET 650 MG PO (05:23)
[2025-04-21] MEDS: SODIUM CHLORIDE 0.9% IV 1,000 ML 125 ML IV CONT ×3 (05:26→22:12)
[2025-04-21] MEDS: CENTRAL LINE FLUSH 10 ML IV PUSH ×2 (05:29→22:15)
[2025-04-21] MEDS: KETOROLAC 10 MG TABLET PO ×3 (06:24→19:38)
[2025-04-21 07:54] LABS: Hematocrit 25.5 % (37.0-47.0); Hemoglobin 8.1 g/dL (12.0-15.0); Mean Corpuscular HGB Conc 31.8 g/dl (32-36); Mean Corpuscular Hemoglobin 29.6 pg (26-34); Mean Corpuscular Volume 93.1 fl (80-100); Platelet Count Result 469 k/mm3 (150-375); Red Blood Count 2.74 M/mm3 (4.2-5.4); White Blood Count 17.8 K/mm3 (4.5-10.0)
[2025-04-21] MEDS: DOXYCYCLINE HYCLATE 100 MG TABLET PO (08:10)
[2025-04-21] MEDS: PANTOPRAZOLE 40 MG TABLET PO ×2 (08:10→22:10)
[2025-04-21] MEDS: MIDODRINE HCL 10 MG TABLET PO ×3 (08:10→17:03)
[2025-04-21] MEDS: METOPROLOL TARTRATE 25 MG TABLET PO ×2 (08:10→22:10)
[2025-04-21] MEDS: LORATADINE 10 MG TABLET PO (08:10)
[2025-04-21] MEDS: FOLIC ACID 1 MG TABLET PO (08:10)
[2025-04-21] MEDS: ATORVASTATIN 40 MG TABLET PO (08:10)
[2025-04-21 08:13] LABS: Anion Gap 6 mmol/L (4-12); Blood Urea Nitrogen 10 mg/dL (7-17); Calcium 9.8 mg/dL (8.4-10.2); Carbon Dioxide 21 mmol/L (22-30); Chloride 102 mmol/L (98-107); Estimated CRCL calculation 60 ml/min; Estimated Glomerular Filt Rate > 60; Glucose 93 mg/dL (65-110); Magnesium 1.7 mg/dL (1.6-2.3); Potassium 3.3 mmol/L (3.4-5.0); Sodium 129 mmol/L (137-145)
[2025-04-21] MEDS: FLUTICASONE/SALMETEROL 45-21 MCG INHALER 1 PUFF 2 PUFF INHALATION ×2 (09:06→19:56)
--- NOTE | 2025-04-21 10:56 | P.CDI_ITS ---
CDI Query Clarification Request Encephalopathy has been documented. Please clarify type of encephalopathy: * Metabolic * Toxic * Hepatic * Hypertensive * Other * Unable to Determine The medical chart reflects the following: Assessment and Plan (1) Patent foramen ovale with right to left shunt: Code(s): Q21.12 - Patent foramen ovale Status: Acute (2) Cardiomyopathy: Code(s): I42.9 - Cardiomyopathy, unspecified Status: Acute (3) Hypercalcemia of malignancy: Code(s): E83.52 - Hypercalcemia Status: Acute (4) Hypokalemia: Code(s): E87.6 - Hypokalemia Status: Acute (5) Urinary tract infection: Code(s): N39.0 - Urinary tract infection, site not specified Status: Acute (6) Anemia: Code(s): D64.9 - Anemia, unspecified Status: Acute (7) Ovarian cancer: Code(s): C56.9 - Malignant neoplasm of unspecified ovary Status: Acute (8) Altered mental status: Code(s): R41.82 - Altered mental status, unspecified Status: Acute Plan 59-year-old female with past medical history of stage IV ovarian cancer with metastasis presenting with worsening mental status. She had recent clearly experiencing weakness, reduced appetite, slurring speech These symptoms were a significant change from the patient's baseline just days prior. Patient has been treated with chemo, radiation in the past, currently on maintenance therapy with Keytruda. , CT head without contrast showed age indeterminate focus of left frontal subcortical ischemia, no hemorrhage, CTA head and neck last night showed no ICA stenosis or other acute arterial abnormality, lytic bony metastatic disease C2, C5, lytic bony metastatic disease right scapula with large associated soft tissue component, no large vessel arterial occlusion disease or other acute arterial abnormality. Blood workup showed calcium level of 14.4 . Received calcitonin, zoledronic acid hypercalcemia. 1. Altered mental status/acute encephalopathy: CT with age indeterminate focus of left frontal subcortical ischemia MRI brain unremarkable Echocardiogram with EF of 40-45% with regional wall motion abnormality, PFO Mental status has improved Neurology following 2. UTI: Completed course of ceftriaxone However UA positive for UTI again Restarted ceftriaxone 04/11/2025 Follow urine culture Febrile again 04/12/2025. Switch ceftriaxone to cefepime Follow urine culture # Vaginitis received a dose of fluconazole 04/13/2025 <Pam Velarde RN - Last Filed: 04/21/25 10:57> Clarified Diagnosis Clarified Diagnosis: Most likely patient has metabolic encephalopathy <Vianey Alvarado MD - Last Filed: 04/26/25 16:07>
--- NOTE | 2025-04-21 11:41 | WPDINFPN2 ---
Progress Note: A&P Assessment and Plan (1) Urinary tract infection: Code(s): N39.0 - Urinary tract infection, site not specified Status: Acute (2) Ovarian cancer: Code(s): C56.9 - Malignant neoplasm of unspecified ovary Status: Acute Plan #Leukocytosis following treatment for bacteriuria v. true UTI. Enterococcus (amp resistant). s/p vanc and augmentin #Pneumonia Follow for any diarrhea; would then assess for Cdiff. REC change abx to cefepime and doxycycline check MRSA nares Follow wbc trend Follow for diarrhea dw pharmacy staff Pt examined via telemedicine with HIPPA-protected audio-visual interface with pt at [facility] in [place], [place] and me in my office in [place]. Pt gave permission. Subjective Date/time seen: 04/21/25 11:41 Interval history: no fevers +sob +low back pain +CASTAÑEDA No cough Exam Narrative: Non-toxic, on room air appears comfortable +Right PAC in chest Objective Data Vital Signs Vital Signs: Vital Signs - 24 hr 04/20/25 13:17 04/20/25 20:00 04/20/25 20:53 Temperature 97.5 F L 98.7 F Pulse Rate 90 84 Respiratory Rate 16 18 Blood Pressure 116/70 124/63 Pulse Oximetry 97 97 Oxygen Delivery Room Air Fraction of Inspired Oxygen 04/20/25 21:15 04/20/25 21:56 04/21/25 05:23 Temperature 100.9 F H Pulse Rate 82 82 Respiratory Rate 16 Blood Pressure Pulse Oximetry Oxygen Delivery Fraction of Inspired Oxygen 04/21/25 05:48 04/21/25 06:20 04/21/25 06:20 Temperature 100.9 F H 98.8 F 98.0 F Pulse Rate 97 Respiratory Rate 19 Blood Pressure 132/73 Pulse Oximetry 98 Oxygen Delivery Fraction of Inspired Oxygen 04/21/25 08:08 04/21/25 08:10 04/21/25 08:10 Temperature 97.7 F 97.7 F Pulse Rate 95 95 95 Respiratory Rate 16 16 Blood Pressure 116/74 116/74 Pulse Oximetry 98 98 Oxygen Delivery Fraction of Inspired Oxygen 04/21/25 08:10 Temperature Pulse Rate 95 Respiratory Rate 16 Blood Pressure Pulse Oximetry 98 Oxygen Delivery Room Air Fraction of Inspired Oxygen 21 Intake/Output Intake/Output: Intake & Output 04/18/25 04/19/25 04/20/25 04/21/25 23:59 23:59 23:59 23:59 Intake Total 1730 1520 1850 1233.3 Output Total 725 1200 Balance 3990 150 4855 33.3 Meds/Results Medications: Active Medications Generic Name Dose Route Start Last Admin Trade Name Freq PRN Reason Stop Dose Admin Acetaminophen 650 mg 03/29/25 19:45 04/21/25 05:23 Acetaminophen 325 Mg Tablet PO 650 mg Q4H PRN Administration Mild Pain (1-3) or Fever Albuterol 2.5 mg 03/29/25 21:50 Albuterol Sulfate Neb 2.5 Mg/3 Ml Inh INHALATION Q4-6H PRN Shortness Of Breath Albuterol 2 puff 04/03/25 17:11 Albuterol Sulfate (*Sp) Aerosol 1 Puff INHALATION Q6HRT PRN Shortness Of Breath Or Wheezing Alteplase, Recombinant 2 mg 04/16/25 09:02 04/16/25 10:24 Alteplase 2 Mg Vial (Cathflo) IV PUSH 2 mg ONCE PRN Administration Line Occlusion Amoxicillin/Clavulanate Potassium 1 tablet 04/20/25 21:00 04/21/25 08:10 Amoxicillin/Clavulanate K 875-125 Mg Tab PO 04/25/25 20:59 1 tablet Q12HR DANIELE Administration Atorvastatin Calcium 40 mg 03/30/25 09:00 04/21/25 08:10 Atorvastatin 40 Mg Tablet PO 40 mg DAILY DANIELE Administration Doxycycline Hyclate 100 mg 04/20/25 21:00 04/21/25 08:10 Doxycycline Hyclate 100 Mg Tablet PO 04/25/25 20:59 100 mg Q12HR DANIELE Administration Duloxetine HCl 60 mg 04/14/25 09:00 04/21/25 08:10 Duloxetine Hcl 30 Mg Capsule.Dr PO 60 mg DAILY DANIELE Administration Folic Acid 1 mg 03/30/25 09:00 04/21/25 08:10 Folic Acid 1 Mg Tablet PO 1 mg DAILY DANIELE Administration Heparin Sodium (Beef Lung) 50 units 03/30/25 09:00 04/21/25 08:10 Heparin Flush 50 Units/5 Ml Syringe IV PUSH Not Given QAM DANIELE Heparin Sodium (Beef Lung) 50 units 03/29/25 23:50 Heparin Flush 50 Units/5 Ml Syringe IV PUSH PRN PRN after intermittent infusion Heparin Sodium (Beef Lung) 50 units 03/29/25 23:50 04/20/25 05:30 Heparin Flush 50 Units/5 Ml Syringe IV PUSH 50 units PRN PRN Administration after blood draws Heparin Sodium (Porcine) 500 units 03/29/25 23:50 04/11/25 23:05 Heparin Sodium Lock Flush 500 Units/5 Ml Syringe IV PUSH 500 units PRN PRN Administration see comments below Sodium Chloride 1,000 mls @ 125 mls/hr 04/20/25 13:25 04/21/25 05:26 Normal Saline Iv IV CONT 125 mls/hr .Q8H DANIELE Administration Ketorolac Tromethamine 10 mg 04/20/25 10:08 04/21/25 06:24 Ketorolac 10 Mg Tablet PO 10 mg Q6H PRN Administration Pain Rated 4-6 Loratadine 10 mg 03/30/25 09:00 04/21/25 08:10 Loratadine 10 Mg Tablet PO 10 mg QAM DANIELE Administration Menthol/Methyl Salicylate 1 applic 04/06/25 02:01 04/19/25 23:09 Menthol 10% / Methyl Salicylate 15% 57 Gm Tube TOPICAL 1 applic BID PRN Administration Muscle/Joint Pain Metoprolol Tartrate 25 mg 04/11/25 21:00 04/21/25 08:10 Metoprolol Tartrate 25 Mg Tablet PO 25 mg Q12HR DANIELE Administration Midodrine 10 mg 04/03/25 23:20 04/21/25 08:10 Midodrine Hcl 10 Mg Tablet PO 10 mg TID DANIELE Administration Montelukast Sodium 10 mg 03/29/25 21:00 04/20/25 21:56 Montelukast Sodium 10 Mg Tablet PO 10 mg HS DANIELE Administration Ondansetron HCl 4 mg 04/20/25 10:08 Ondansetron Inj 4 Mg/2 Ml Vial IV PUSH Q4H PRN Nausea And Vomiting Pantoprazole Sodium 40 mg 04/07/25 21:00 04/21/25 08:10 Pantoprazole 40 Mg Tablet PO 40 mg Q12HR DANIELE Administration Polyethylene Glycol 17 gm 04/02/25 09:00 04/21/25 08:11 Polyethylene Glycol 3350 17 Gm Powd.Pack PO Not Given QAM DANIELE Fluticasone/Salmeterol 2 puff 03/29/25 20:00 04/21/25 09:06 Fluticasone/Salmeterol 45-21 Mcg Inhaler 1 Puff INHALATION 2 puff Q12HRT DANIELE Administration Senna 17.2 mg 03/30/25 09:00 04/02/25 08:36 Sennosides 8.6 Mg Tablet PO 17.2 mg On Hold: 04/02/25 08:45 BID DANIELE Administration Sodium Chloride 10 ml 03/30/25 06:00 04/21/25 05:29 Central Line Flush IV PUSH 10 ml Q8HR DANIELE Administration Radiology Results: ITS Impressions Head CT 03/28/25 17:39 Impression: Age-indeterminate focus of left frontal subcortical ischemia. No hemorrhage. MRI recommended Head/Neck CTA 03/29/25 08:51 IMPRESSION: CTA NECK: 1. No ICA stenosis or other acute arterial abnormality. 2. Lytic bony metastatic disease C2, C5. 3. Lytic bony metastatic disease right scapula with large associated soft tissue component. CTA HEAD: 1. No large vessel arterial occlusive disease or other acute arterial abnormality. Brain MRI 03/30/25 15:18 IMPRESSION: 1. Scattered ossific white matter T2 hyperintensity consistent with chronic small vessel ischemic disease. No acute intracranial process. Venous Doppler Study 03/31/25 17:18 IMPRESSION: 1: No lower extremity deep venous thrombosis. Shoulder X-Ray 04/11/25 15:25 Impression: No acute fracture or malalignment. Chest X-Ray 04/20/25 15:26 IMPRESSION: Multifocal airspace opacities are noted bilaterally. Labs Labs: Laboratory Results - last 24 hr 04/21/25 04/21/25 07:42 07:43 WBC 17.8 H RBC 2.74 L Hgb 8.1 L Hct 25.5 L MCV 93.1 MCH 29.6 MCHC 31.8 L RDW 17.2 H Plt Count 469 H MPV 8.7 Sodium 129 L Potassium 3.3 L Chloride 102 Carbon Dioxide 21 L Anion Gap 6 BUN 10 Creatinine 0.74 Estim Creat Clear Calc 60 Estimated GFR > 60 Glucose 93 Calcium 9.8 Magnesium 1.7
[2025-04-21] MEDS: POTASSIUM CHLORIDE 20 MEQ ER TABLET 40 MEQ PO (12:17)
[2025-04-21] MEDS: CEFEPIME 2 GM in SODIUM CHLORIDE 0.9% IV 50 ML 100 ML IVPB ×2 (13:22→23:38)
[2025-04-21 14:53] LABS: MRSA (PCR) NOT DETECTED (NOT DETECTE)
--- NOTE | 2025-04-21 16:10 | P.PNIM_ITS ---
Progress Note: A&P Assessment and Plan (1) Patent foramen ovale with right to left shunt: Code(s): Q21.12 - Patent foramen ovale Status: Acute (2) Cardiomyopathy: Code(s): I42.9 - Cardiomyopathy, unspecified Status: Acute (3) Hypercalcemia of malignancy: Code(s): E83.52 - Hypercalcemia Status: Acute (4) Hypokalemia: Code(s): E87.6 - Hypokalemia Status: Acute (5) Urinary tract infection: Code(s): N39.0 - Urinary tract infection, site not specified Status: Acute (6) Anemia: Code(s): D64.9 - Anemia, unspecified Status: Acute (7) Ovarian cancer: Code(s): C56.9 - Malignant neoplasm of unspecified ovary Status: Acute (8) Altered mental status: Code(s): R41.82 - Altered mental status, unspecified Status: Acute Plan 59-year-old female with past medical history of stage IV ovarian cancer with metastasis presenting with worsening mental status. She had recent clearly experiencing weakness, reduced appetite, slurring speech These symptoms were a significant change from the patient's baseline just days prior. Patient has been treated with chemo, radiation in the past, currently on maintenance therapy with Keytruda. , CT head without contrast showed age indeterminate focus of left frontal subcortical ischemia, no hemorrhage, CTA head and neck last night showed no ICA stenosis or other acute arterial abnormality, lytic bony metastatic disease C2, C5, lytic bony metastatic disease right scapula with large associated soft tissue component, no large vessel arterial occlusion disease or other acute arterial abnormality. Blood workup showed calcium level of 14.4 . Received calcitonin, zoledronic acid hypercalcemia. 1. Altered mental status/acute encephalopathy: CT with age indeterminate focus of left frontal subcortical ischemia MRI brain unremarkable Echocardiogram with EF of 40-45% with regional wall motion abnormality, PFO Mental status has improved Neurology following 2. UTI: Completed course of ceftriaxone However UA positive for UTI again Restarted ceftriaxone 04/11/2025 Follow urine culture Febrile again 04/12/2025. Switch ceftriaxone to cefepime Follow urine culture # Vaginitis received a dose of fluconazole 04/13/2025 3. Hypercalcemia: Likely secondary to malignancy Received zoledronic acid, calcitonin, IV fluids Hypercalcemia has resolved 4. Anemia: Status post 2 units of PRBC H&H stable H&H dropped today to 7.6. No signs of bleeding. Will recheck this evening and monitor 5. History of metastatic ovarian cancer: MRI brain unremarkable Patient follows up with Oncology at [facility] 6.) Cardiomyopathy: Patent foramen ovale Echo showing EF 40-45% with regional wall motion abnormality and PFO with R-->L shunt Cardiology consulted. LE venous doppler negative for DVT so unlikely paradoxical CVA. Metoprolol tartrate started. Maxide stopped and losartan added Due to HoTN and anemia, Plavix stopped. Continue tele monitoring. Continue statin. Verapamil has been stopped Will need home O2 evaluation before discharge Currently on room air 7. History of hypertension: Continue with losartan, metoprolol Verapamil has been stopped no overnight events. patient is found to lice in her hair, and being treated with permethrin, in isolation, stats did participate in the PT and able to tolerate diet, discussed with her nurse and she is doing better, patient urine culture is positive for enterococcus faecium, multi drug resistant, sensitive to Vancomycin, discussed with clinical pharmacist, will start the antibiotics and will switch over to oral upon discharge, patient remains clinically stable, will monitor. patient remains clinically stable, has no new complaints, will continue IV abx today, and plan was discharge her on 04/17 , however patient is accepted by [facility] and they do not any bed until Sunday at that time will discharge the patient. on 04/17 patient complained of right sided shoulder and neck pain, most likely muscular pain, will apply Lidoderm patches and monitor. plan was to discharge to [facility] however patient white counts are rising and etiology is uncertain, patient denies any fever, dysuria, or abdominal pain, stopped her oral Linzess and restarted IV vancomycin, did order repeat blood and urine culture, no growth the so far her chest x-ray on 04/18 did not show pulmonary pathology, seen by consult ID added Cefepime and doxycycline her white counts are trending down, further evaluation and recommendation to follow, will monitor follow up repeat blood and urine cultures. will recheck ches x-ray tomorrow. 8. Code status: Full 9. DVT prophylaxis: SCDs 9. Disposition: Pending placement. 10. Tachycardia with mild fever Re-culture. Chest x-ray negative. UA positive. Blood culture pending. Treat as UTI. With ceftriaxone Subjective Date/time seen: 04/21/25 16:10 Interval history: no overnight events. patient is found to lice in her hair, and being treated with permethrin, in isolation, stats did participate in the PT and able to tolerate diet, discussed with her nurse and she is doing better, patient urine culture is positive for enterococcus faecium, multi drug resistant, sensitive to Vancomycin, discussed with clinical pharmacist, will start the antibiotics and will switch over to oral upon discharge, patient remains clinically stable, will monitor. patient remains clinically stable, has no new complaints, will continue IV abx today, and plan was discharge her on 04/17 , however patient is accepted by [facility] and they do not any bed until Sunday at that time will discharge the patient. on 04/17 patient complained of right sided shoulder and neck pain, most likely muscular pain, will apply Lidoderm patches and monitor. plan was to discharge to [facility] however patient white counts are rising and etiology is uncertain, patient denies any fever, dysuria, or abdominal pain, stopped her oral Linzess and restarted IV vancomycin, did order repeat blood and urine culture, no growth the so far her chest x-ray on 04/18 did not show pulmonary pathology, seen by consult ID added Cefepime and doxycycline her white counts are trending down, further evaluation and recommendation to follow, will monitor follow up repeat blood and urine cultures. will recheck ches x-ray tomorrow. Review of Systems Review of Systems: All systems reviewed & are unremarkable except as noted in HPI and below ROS unobtainable: Yes unobtainable due to medical condition and unobtainable due to mental status Exam Narrative: Gen -no acute distress Chest -bilateral clear to auscultation CV - Regular rate and rhythm with S1-S2. Abd - soft, NT/ND with positive bowel sounds. Ext - no pedal edema Psych- alert, pleasant and cooperative Skin - Warm and dry. Objective Data Vital Signs Vital Signs: Vital Signs - 24 hr 04/20/25 20:00 04/20/25 20:53 04/20/25 21:15 Temperature 37.1 C Pulse Rate 84 82 Respiratory Rate 18 16 Blood Pressure 124/63 Pulse Oximetry 97 Oxygen Delivery Room Air Fraction of Inspired Oxygen 04/20/25 21:56 04/21/25 05:23 04/21/25 05:48 Temperature 38.3 C H 38.3 C H Pulse Rate 82 97 Respiratory Rate 19 Blood Pressure 132/73 Pulse Oximetry 98 Oxygen Delivery Fraction of Inspired Oxygen 04/21/25 06:20 04/21/25 06:20 04/21/25 08:08 Temperature 37.1 C 36.7 C 36.5 C Pulse Rate 95 Respiratory Rate 16 Blood Pressure 116/74 Pulse Oximetry 98 Oxygen Delivery Fraction of Inspired Oxygen 04/21/25 08:10 04/21/25 08:10 04/21/25 08:10 Temperature 36.5 C Pulse Rate 95 95 95 Respiratory Rate 16 16 Blood Pressure 116/74 Pulse Oximetry 98 98 Oxygen Delivery Room Air Fraction of Inspired Oxygen 21 04/21/25 14:00 Temperature 36.9 C Pulse Rate 85 Respiratory Rate 16 Blood Pressure 127/71 Pulse Oximetry 96 Oxygen Delivery Fraction of Inspired Oxygen Intake/Output Intake/Output: Intake & Output 04/18/25 04/19/25 04/20/25 04/21/25 23:59 23:59 23:59 23:59 Intake Total 1730 1520 1850 2334.6 Output Total 725 1200 Balance 2446 520 0465 1134.6 Meds/Results Medications: Active Medications Generic Name Dose Route Start Last Admin Trade Name Freq PRN Reason Stop Dose Admin Acetaminophen 650 mg 03/29/25 19:45 04/21/25 05:23 Acetaminophen 325 Mg Tablet PO 650 mg Q4H PRN Administration Mild Pain (1-3) or Fever Albuterol 2.5 mg 03/29/25 21:50 Albuterol Sulfate Neb 2.5 Mg/3 Ml Inh INHALATION Q4-6H PRN Shortness Of Breath Albuterol 2 puff 04/03/25 17:11 Albuterol Sulfate (*Sp) Aerosol 1 Puff INHALATION Q6HRT PRN Shortness Of Breath Or Wheezing Alteplase, Recombinant 2 mg 04/16/25 09:02 04/16/25 10:24 Alteplase 2 Mg Vial (Cathflo) IV PUSH 2 mg ONCE PRN Administration Line Occlusion Amoxicillin/Clavulanate Potassium 1 tablet 04/20/25 21:00 04/21/25 08:10 Amoxicillin/Clavulanate K 875-125 Mg Tab PO 04/25/25 20:59 1 tablet Q12HR DANIELE Administration Atorvastatin Calcium 40 mg 03/30/25 09:00 04/21/25 08:10 Atorvastatin 40 Mg Tablet PO 40 mg DAILY DANIELE Administration Duloxetine HCl 60 mg 04/14/25 09:00 04/21/25 08:10 Duloxetine Hcl 30 Mg Capsule.Dr PO 60 mg DAILY DANIELE Administration Folic Acid 1 mg 03/30/25 09:00 04/21/25 08:10 Folic Acid 1 Mg Tablet PO 1 mg DAILY DANIELE Administration Heparin Sodium (Beef Lung) 50 units 03/30/25 09:00 04/21/25 08:10 Heparin Flush 50 Units/5 Ml Syringe IV PUSH Not Given QAM DANIELE Heparin Sodium (Beef Lung) 50 units 03/29/25 23:50 Heparin Flush 50 Units/5 Ml Syringe IV PUSH PRN PRN after intermittent infusion Heparin Sodium (Beef Lung) 50 units 03/29/25 23:50 04/20/25 05:30 Heparin Flush 50 Units/5 Ml Syringe IV PUSH 50 units PRN PRN Administration after blood draws Heparin Sodium (Porcine) 500 units 03/29/25 23:50 04/11/25 23:05 Heparin Sodium Lock Flush 500 Units/5 Ml Syringe IV PUSH 500 units PRN PRN Administration see comments below Sodium Chloride 1,000 mls @ 125 mls/hr 04/20/25 13:25 04/21/25 13:17 Normal Saline Iv IV CONT 125 mls/hr .Q8H DANIELE Administration Doxycycline Hyclate 100 mg/ 100 mls @ 100 mls/hr 04/21/25 21:00 Sodium Chloride IVPB Q12HR DANIELE Cefepime HCl 2 gm/ Sodium 50 mls @ 100 mls/hr 04/21/25 13:30 04/21/25 13:22 Chloride IVPB 100 mls/hr Q8HR DANIELE Administration Ketorolac Tromethamine 10 mg 04/20/25 10:08 04/21/25 13:12 Ketorolac 10 Mg Tablet PO 10 mg Q6H PRN Administration Pain Rated 4-6 Loratadine 10 mg 03/30/25 09:00 04/21/25 08:10 Loratadine 10 Mg Tablet PO 10 mg QAM DANIELE Administration Menthol/Methyl Salicylate 1 applic 04/06/25 02:01 04/19/25 23:09 Menthol 10% / Methyl Salicylate 15% 57 Gm Tube TOPICAL 1 applic BID PRN Administration Muscle/Joint Pain Metoprolol Tartrate 25 mg 04/11/25 21:00 04/21/25 08:10 Metoprolol Tartrate 25 Mg Tablet PO 25 mg Q12HR DANIELE Administration Midodrine 10 mg 04/03/25 23:20 04/21/25 12:18 Midodrine Hcl 10 Mg Tablet PO 10 mg TID DANIELE Administration Montelukast Sodium 10 mg 03/29/25 21:00 04/20/25 21:56 Montelukast Sodium 10 Mg Tablet PO 10 mg HS DANIELE Administration Ondansetron HCl 4 mg 04/20/25 10:08 Ondansetron Inj 4 Mg/2 Ml Vial IV PUSH Q4H PRN Nausea And Vomiting Pantoprazole Sodium 40 mg 04/07/25 21:00 04/21/25 08:10 Pantoprazole 40 Mg Tablet PO 40 mg Q12HR DANIELE Administration Polyethylene Glycol 17 gm 04/02/25 09:00 04/21/25 08:11 Polyethylene Glycol 3350 17 Gm Powd.Pack PO Not Given QAM DANIELE Fluticasone/Salmeterol 2 puff 03/29/25 20:00 04/21/25 09:06 Fluticasone/Salmeterol 45-21 Mcg Inhaler 1 Puff INHALATION 2 puff Q12HRT DANIELE Administration Senna 17.2 mg 03/30/25 09:00 04/02/25 08:36 Sennosides 8.6 Mg Tablet PO 17.2 mg On Hold: 04/02/25 08:45 BID DANIELE Administration Sodium Chloride 10 ml 03/30/25 06:00 04/21/25 13:23 Central Line Flush IV PUSH Not Given Q8HR [facility] Radiology Results: ITS Impressions Head CT 03/28/25 17:39 Impression: Age-indeterminate focus of left frontal subcortical ischemia. No hemorrhage. MRI recommended Head/Neck CTA 03/29/25 08:51 IMPRESSION: CTA NECK: 1. No ICA stenosis or other acute arterial abnormality. 2. Lytic bony metastatic disease C2, C5. 3. Lytic bony metastatic disease right scapula with large associated soft tissue component. CTA HEAD: 1. No large vessel arterial occlusive disease or other acute arterial abnormality. Brain MRI 03/30/25 15:18 IMPRESSION: 1. Scattered ossific white matter T2 hyperintensity consistent with chronic small vessel ischemic disease. No acute intracranial process. Venous Doppler Study 03/31/25 17:18 IMPRESSION: 1: No lower extremity deep venous thrombosis. Shoulder X-Ray 04/11/25 15:25 Impression: No acute fracture or malalignment. Chest X-Ray 04/20/25 15:26 IMPRESSION: Multifocal airspace opacities are noted bilaterally. Labs Labs: Laboratory Results - last 24 hr 04/21/25 04/21/25 04/21/25 07:42 07:43 13:17 WBC 17.8 H RBC 2.74 L Hgb 8.1 L Hct 25.5 L MCV 93.1 MCH 29.6 MCHC 31.8 L RDW 17.2 H Plt Count 469 H MPV 8.7 Sodium 129 L Potassium 3.3 L Chloride 102 Carbon Dioxide 21 L Anion Gap 6 BUN 10 Creatinine 0.74 Estim Creat Clear Calc 60 Estimated GFR > 60 Glucose 93 Calcium 9.8 Magnesium 1.7 Nasal MRSA (PCR) Not detected Quality VTE Prophylaxis VTE prophylaxis: mechanical ordered
[2025-04-21] MEDS: MONTELUKAST SODIUM 10 MG TABLET PO (22:10)
[2025-04-21] MEDS: DOXYCYCLINE IV 100 MG in SODIUM CHLORIDE 0.9% IV 100 ML IVPB (22:11)
[2025-04-21] MEDS: ACETAMINOPHEN 500 MG TABLET 1000 MG PO (23:36)
[2025-04-22] VITALS (10 sets, daily range): BP systolic 105–128; BP diastolic 60–70; PULSE 80–101; RESP 13–20; TEMP 36.2–37; O2SAT 95–98
[2025-04-22] MEDS: CENTRAL LINE FLUSH 10 ML IV PUSH ×3 (06:35→20:46)
[2025-04-22] MEDS: CEFEPIME 2 GM in SODIUM CHLORIDE 0.9% IV 50 ML 100 ML IVPB (06:35)
[2025-04-22] MEDS: KETOROLAC 10 MG TABLET PO ×2 (06:36→18:16)
[2025-04-22 06:53] LABS: Hematocrit 26.2 % (37.0-47.0); Hemoglobin 7.9 g/dL (12.0-15.0); Mean Corpuscular HGB Conc 30.2 g/dl (32-36); Mean Corpuscular Hemoglobin 28.8 pg (26-34); Mean Corpuscular Volume 95.6 fl (80-100); Platelet Count Result 486 k/mm3 (150-375); Red Blood Count 2.74 M/mm3 (4.2-5.4); White Blood Count 18.3 K/mm3 (4.5-10.0)
[2025-04-22 07:14] LABS: Anion Gap 8 mmol/L (4-12); Blood Urea Nitrogen 7 mg/dL (7-17); Calcium 9.6 mg/dL (8.4-10.2); Carbon Dioxide 21 mmol/L (22-30); Chloride 106 mmol/L (98-107); Estimated CRCL calculation 64 ml/min; Estimated Glomerular Filt Rate > 60; Glucose 89 mg/dL (65-110); Magnesium 1.6 mg/dL (1.6-2.3); Potassium 3.4 mmol/L (3.4-5.0); Sodium 135 mmol/L (137-145)
--- NOTE | 2025-04-22 07:59 | P.PNINF_ITS ---
Progress Note: A&P Assessment and Plan (1) Urinary tract infection: Code(s): N39.0 - Urinary tract infection, site not specified Status: Acute (2) Ovarian cancer: Code(s): C56.9 - Malignant neoplasm of unspecified ovary Status: Acute Plan #Leukocytosis following treatment for bacteriuria v. true UTI. Enterococcus (amp resistant). s/p vanc and augmentin Repeat urine cx 04/19 neg #Pneumonia; MRSA nares neg REC change abx to zosyn alone in case neurotoxicity from cefepime BCx 04/19 pending Follow wbc trend Follow for diarrhea dw pharmacy staff and nursing staff Pt examined via telemedicine with HIPPA-protected audio-visual interface with pt at [facility] in [place], [place] and me in my office in [place]. Pt gave permission. Subjective Date/time seen: 04/22/25 07:59 Interval history: no fevers leukocytosis stable neck is painful No sob. No cough. per nursing staff some AMS Exam Narrative: NAD, on room air, non-toxic Objective Data Vital Signs Vital Signs: Vital Signs - 24 hr 04/21/25 08:08 04/21/25 08:10 04/21/25 08:10 Temperature 97.7 F 97.7 F Pulse Rate 95 95 95 Respiratory Rate 16 16 Blood Pressure 116/74 116/74 Pulse Oximetry 98 98 Oxygen Delivery Fraction of Inspired Oxygen 04/21/25 08:10 04/21/25 14:00 04/21/25 19:32 Temperature 98.4 F 98.1 F Pulse Rate 95 85 98 Respiratory Rate 16 16 20 Blood Pressure 127/71 138/64 Pulse Oximetry 98 96 96 Oxygen Delivery Room Air Fraction of Inspired Oxygen 21 04/21/25 19:56 04/21/25 19:56 04/21/25 20:00 Temperature Pulse Rate 100 100 Respiratory Rate 24 H 24 H Blood Pressure Pulse Oximetry 96 Oxygen Delivery Room Air Room Air Fraction of Inspired Oxygen 21 04/21/25 22:10 04/22/25 04:15 Temperature 97.1 F L Pulse Rate 98 85 Respiratory Rate 20 Blood Pressure 128/70 Pulse Oximetry 98 Oxygen Delivery Fraction of Inspired Oxygen Intake/Output Intake/Output: Intake & Output 04/19/25 04/20/25 04/21/25 04/22/25 23:59 23:59 23:59 23:59 Intake Total 1520 1850 4034.6 750 Output Total 725 1200 Balance 795 1850 2834.6 750 Meds/Results Medications: Active Medications Generic Name Dose Route Start Last Admin Trade Name Freq PRN Reason Stop Dose Admin Acetaminophen 650 mg 03/29/25 19:45 04/21/25 05:23 Acetaminophen 325 Mg Tablet PO 650 mg Q4H PRN Administration Mild Pain (1-3) or Fever Albuterol 2.5 mg 03/29/25 21:50 Albuterol Sulfate Neb 2.5 Mg/3 Ml Inh INHALATION Q4-6H PRN Shortness Of Breath Albuterol 2 puff 04/03/25 17:11 Albuterol Sulfate (*Sp) Aerosol 1 Puff INHALATION Q6HRT PRN Shortness Of Breath Or Wheezing Alteplase, Recombinant 2 mg 04/16/25 09:02 04/16/25 10:24 Alteplase 2 Mg Vial (Cathflo) IV PUSH 2 mg ONCE PRN Administration Line Occlusion Amoxicillin/Clavulanate Potassium 1 tablet 04/20/25 21:00 04/21/25 22:10 Amoxicillin/Clavulanate K 875-125 Mg Tab PO 04/25/25 20:59 1 tablet Q12HR DANIELE Administration Atorvastatin Calcium 40 mg 03/30/25 09:00 04/21/25 08:10 Atorvastatin 40 Mg Tablet PO 40 mg DAILY DANIELE Administration Duloxetine HCl 60 mg 04/14/25 09:00 04/21/25 08:10 Duloxetine Hcl 30 Mg Capsule.Dr PO 60 mg DAILY DANIELE Administration Folic Acid 1 mg 03/30/25 09:00 04/21/25 08:10 Folic Acid 1 Mg Tablet PO 1 mg DAILY DANIELE Administration Heparin Sodium (Beef Lung) 50 units 03/30/25 09:00 04/21/25 08:10 Heparin Flush 50 Units/5 Ml Syringe IV PUSH Not Given QAM DANIELE Heparin Sodium (Beef Lung) 50 units 03/29/25 23:50 Heparin Flush 50 Units/5 Ml Syringe IV PUSH PRN PRN after intermittent infusion Heparin Sodium (Beef Lung) 50 units 03/29/25 23:50 04/20/25 05:30 Heparin Flush 50 Units/5 Ml Syringe IV PUSH 50 units PRN PRN Administration after blood draws Heparin Sodium (Porcine) 500 units 03/29/25 23:50 04/11/25 23:05 Heparin Sodium Lock Flush 500 Units/5 Ml Syringe IV PUSH 500 units PRN PRN Administration see comments below Sodium Chloride 1,000 mls @ 125 mls/hr 04/20/25 13:25 04/21/25 22:12 Normal Saline Iv IV CONT 125 mls/hr .Q8H DANIELE Administration Doxycycline Hyclate 100 mg/ 100 mls @ 100 mls/hr 04/21/25 21:00 04/21/25 23:11 Sodium Chloride IVPB Infused Q12HR DANIELE Infusion Cefepime HCl 2 gm/ Sodium 50 mls @ 100 mls/hr 04/21/25 13:30 04/22/25 06:35 Chloride IVPB 100 mls/hr Q8HR DANIELE Administration Ketorolac Tromethamine 10 mg 04/20/25 10:08 04/22/25 06:36 Ketorolac 10 Mg Tablet PO 10 mg Q6H PRN Administration Pain Rated 4-6 Loratadine 10 mg 03/30/25 09:00 04/21/25 08:10 Loratadine 10 Mg Tablet PO 10 mg QAM DANIELE Administration Menthol/Methyl Salicylate 1 applic 04/06/25 02:01 04/19/25 23:09 Menthol 10% / Methyl Salicylate 15% 57 Gm Tube TOPICAL 1 applic BID PRN Administration Muscle/Joint Pain Metoprolol Tartrate 25 mg 04/11/25 21:00 04/21/25 22:10 Metoprolol Tartrate 25 Mg Tablet PO 25 mg Q12HR DANIELE Administration Midodrine 10 mg 04/03/25 23:20 04/21/25 17:03 Midodrine Hcl 10 Mg Tablet PO 10 mg TID DANIELE Administration Montelukast Sodium 10 mg 03/29/25 21:00 04/21/25 22:10 Montelukast Sodium 10 Mg Tablet PO 10 mg HS DANIELE Administration Ondansetron HCl 4 mg 04/20/25 10:08 Ondansetron Inj 4 Mg/2 Ml Vial IV PUSH Q4H PRN Nausea And Vomiting Pantoprazole Sodium 40 mg 04/07/25 21:00 04/21/25 22:10 Pantoprazole 40 Mg Tablet PO 40 mg Q12HR DANIELE Administration Polyethylene Glycol 17 gm 04/02/25 09:00 04/21/25 08:11 Polyethylene Glycol 3350 17 Gm Powd.Pack PO Not Given QAM DANIELE Fluticasone/Salmeterol 2 puff 03/29/25 20:00 04/21/25 19:56 Fluticasone/Salmeterol 45-21 Mcg Inhaler 1 Puff INHALATION 2 puff Q12HRT DANIELE Administration Senna 17.2 mg 03/30/25 09:00 04/02/25 08:36 Sennosides 8.6 Mg Tablet PO 17.2 mg On Hold: 04/02/25 08:45 BID DANIELE Administration Sodium Chloride 10 ml 03/30/25 06:00 04/22/25 06:35 Central Line Flush IV PUSH 10 ml Q8HR DANIELE Administration Radiology Results: ITS Impressions Head CT 03/28/25 17:39 Impression: Age-indeterminate focus of left frontal subcortical ischemia. No hemorrhage. MRI recommended Head/Neck CTA 03/29/25 08:51 IMPRESSION: CTA NECK: 1. No ICA stenosis or other acute arterial abnormality. 2. Lytic bony metastatic disease C2, C5. 3. Lytic bony metastatic disease right scapula with large associated soft tissue component. CTA HEAD: 1. No large vessel arterial occlusive disease or other acute arterial abnormali ty. Brain MRI 03/30/25 15:18 IMPRESSION: 1. Scattered ossific white matter T2 hyperintensity consistent with chronic small vessel ischemic disease. No acute intracranial process. Venous Doppler Study 03/31/25 17:18 IMPRESSION: 1: No lower extremity deep venous thrombosis. Shoulder X-Ray 04/11/25 15:25 Impression: No acute fracture or malalignment. Chest X-Ray 04/20/25 15:26 IMPRESSION: Multifocal airspace opacities are noted bilaterally. Labs Labs: Laboratory Results - last 24 hr 04/21/25 04/21/25 04/22/25 07:43 13:17 06:45 WBC 18.3 H RBC 2.74 L Hgb 7.9 L Hct 26.2 L MCV 95.6 MCH 28.8 MCHC 30.2 L RDW 17.2 H Plt Count 486 H MPV 9.0 Sodium 129 L 135 L Potassium 3.3 L 3.4 Chloride 102 106 Carbon Dioxide 21 L 21 L Anion Gap 6 8 BUN 10 7 Creatinine 0.74 0.68 L Estim Creat Clear Calc 60 64 Estimated GFR > 60 > 60 Glucose 93 89 Calcium 9.8 9.6 Magnesium 1.7 1.6 Nasal MRSA (PCR) Not detected
[2025-04-22] MEDS: FLUTICASONE/SALMETEROL 45-21 MCG INHALER 1 PUFF 2 PUFF INHALATION ×2 (08:32→20:53)
--- NOTE | 2025-04-22 09:03 | PCPTNOTE ---
Patient refused treatment this session due to c/o headache. Patient rates pain as 8 to 10 on pain scale. MARIELA Shoemaker aware of patient's c/o pain.
[2025-04-22] MEDS: SODIUM CHLORIDE 0.9% IV 1,000 ML 125 ML IV CONT ×2 (09:06→22:22)
[2025-04-22] MEDS: DOXYCYCLINE IV 100 MG in SODIUM CHLORIDE 0.9% IV 100 ML IVPB (09:08)
[2025-04-22] MEDS: METOPROLOL TARTRATE 25 MG TABLET PO ×2 (09:12→20:44)
[2025-04-22] MEDS: FOLIC ACID 1 MG TABLET PO (09:12)
[2025-04-22] MEDS: MIDODRINE HCL 10 MG TABLET PO ×3 (09:12→16:05)
[2025-04-22] MEDS: ATORVASTATIN 40 MG TABLET PO (09:12)
[2025-04-22] MEDS: LORATADINE 10 MG TABLET PO (09:12)
[2025-04-22] MEDS: PANTOPRAZOLE 40 MG TABLET PO ×2 (09:12→20:44)
[2025-04-22] MEDS: ACETAMINOPHEN 325 MG TABLET 650 MG PO (11:01)
[2025-04-22] MEDS: POTASSIUM CHLORIDE 20 MEQ PACKET (FOR LIQUID) 40 MEQ PO (11:01)
--- NOTE | 2025-04-22 11:07 | PC.NURSE ---
Patient holding blood pressure cuff asking should I be taking these medications? Nurse let the patient know that what she was holding was her blood pressure cuff and asked patient if she was seeing things differently or seeing things that were not really present and patient answered no to this question.
[2025-04-22] MEDS: PIPERACILLIN/TAZOBACTAM SOD 4.5 GM in SODIUM CHLORIDE 0.9% IV 100 ML 200 ML IVPB ×3 (14:41→23:06)
--- NOTE | 2025-04-22 16:41 | P.PNIM_ITS ---
Progress Note: A&P Assessment and Plan (1) Patent foramen ovale with right to left shunt: Code(s): Q21.12 - Patent foramen ovale Status: Acute (2) Cardiomyopathy: Code(s): I42.9 - Cardiomyopathy, unspecified Status: Acute (3) Hypercalcemia of malignancy: Code(s): E83.52 - Hypercalcemia Status: Acute (4) Hypokalemia: Code(s): E87.6 - Hypokalemia Status: Acute (5) Urinary tract infection: Code(s): N39.0 - Urinary tract infection, site not specified Status: Acute (6) Anemia: Code(s): D64.9 - Anemia, unspecified Status: Acute (7) Ovarian cancer: Code(s): C56.9 - Malignant neoplasm of unspecified ovary Status: Acute (8) Altered mental status: Code(s): R41.82 - Altered mental status, unspecified Status: Acute Plan 59-year-old female with past medical history of stage IV ovarian cancer with metastasis presenting with worsening mental status. She had recent clearly experiencing weakness, reduced appetite, slurring speech These symptoms were a significant change from the patient's baseline just days prior. Patient has been treated with chemo, radiation in the past, currently on maintenance therapy with Keytruda. , CT head without contrast showed age indeterminate focus of left frontal subcortical ischemia, no hemorrhage, CTA head and neck last night showed no ICA stenosis or other acute arterial abnormality, lytic bony metastatic disease C2, C5, lytic bony metastatic disease right scapula with large associated soft tissue component, no large vessel arterial occlusion disease or other acute arterial abnormality. Blood workup showed calcium level of 14.4 . Received calcitonin, zoledronic acid hypercalcemia. 1. Altered mental status/acute encephalopathy: CT with age indeterminate focus of left frontal subcortical ischemia MRI brain unremarkable Echocardiogram with EF of 40-45% with regional wall motion abnormality, PFO Mental status has improved Neurology following 2. UTI: Completed course of ceftriaxone However UA positive for UTI again Restarted ceftriaxone 04/11/2025 Follow urine culture Febrile again 04/12/2025. Switch ceftriaxone to cefepime Follow urine culture # Vaginitis received a dose of fluconazole 04/13/2025 3. Hypercalcemia: Likely secondary to malignancy Received zoledronic acid, calcitonin, IV fluids Hypercalcemia has resolved 4. Anemia: Status post 2 units of PRBC H&H stable H&H dropped today to 7.6. No signs of bleeding. Will recheck this evening and monitor 5. History of metastatic ovarian cancer: MRI brain unremarkable Patient follows up with Oncology at [facility] 6.) Cardiomyopathy: Patent foramen ovale Echo showing EF 40-45% with regional wall motion abnormality and PFO with R-->L shunt Cardiology consulted. LE venous doppler negative for DVT so unlikely paradoxical CVA. Metoprolol tartrate started. Maxide stopped and losartan added Due to HoTN and anemia, Plavix stopped. Continue tele monitoring. Continue statin. Verapamil has been stopped Will need home O2 evaluation before discharge Currently on room air 7. History of hypertension: Continue with losartan, metoprolol Verapamil has been stopped no overnight events. patient is found to lice in her hair, and being treated with permethrin, in isolation, stats did participate in the PT and able to tolerate diet, discussed with her nurse and she is doing better, patient urine culture is positive for enterococcus faecium, multi drug resistant, sensitive to Vancomycin, discussed with clinical pharmacist, will start the antibiotics and will switch over to oral upon discharge, patient remains clinically stable, will monitor. patient remains clinically stable, has no new complaints, will continue IV abx today, and plan was discharge her on 04/17 , however patient is accepted [facility] and they do not any bed until Sunday at that time will discharge the patient. on 04/17 patient complained of right sided shoulder and neck pain, most likely muscular pain, will apply Lidoderm patches and monitor. plan was to discharge to [facility] however patient white counts are rising and etiology is uncertain, patient denies any fever, dysuria, or abdominal pain, stopped her oral Linzess and restarted IV vancomycin, did order repeat blood and urine culture, no growth the so far her chest x-ray on 04/18 did not show pulmonary pathology, however chest x-ray today showed worsening b/l pnemonia, seen by consult ID was added Cefepime however Cefepime was dc due to risk of neurotoxicity and zosyn was started and continue doxycycline her white counts are trending down, further evaluation and recommendation to follow, will monitor follow up repeat blood and urine cultures. 8. Code status: Full 9. DVT prophylaxis: SCDs 9. Disposition: Pending placement. 10. Tachycardia with mild fever Re-culture. Chest x-ray negative. UA positive. Blood culture pending. Treat as UTI. With ceftriaxone Subjective Date/time seen: 04/22/25 16:41 Interval history: no overnight events. patient is found to lice in her hair, and being treated with permethrin, in isolation, stats did participate in the PT and able to tolerate diet, discussed with her nurse and she is doing better, patient urine culture is positive for enterococcus faecium, multi drug resistant, sensitive to Vancomycin, discussed with clinical pharmacist, will start the antibiotics and will switch over to oral upon discharge, patient remains clinically stable, will monitor. patient remains clinically stable, has no new complaints, will continue IV abx today, and plan was discharge her on 04/17 , however patient is accepted by [facility] and they do not any bed until Sunday at that time will discharge the patient. on 04/17 patient complained of right sided shoulder and neck pain, most likely muscular pain, will apply Lidoderm patches and monitor. plan was to discharge to [facility] however patient white counts are rising and etiology is uncertain, patient denies any fever, dysuria, or abdominal pain, stopped her oral Linzess and restarted IV vancomycin, did order repeat blood and urine culture, no growth the so far her chest x-ray on 04/18 did not show pulmonary pathology, however chest x-ray today showed worsening b/l pnemonia, seen by consult ID was added Cefepime however Cefepime was dc due to risk of neurotoxicity and zosyn was started and continue doxycycline her white counts are trending down, further evaluation and recommendation to follow, will monitor follow up repeat blood and urine cultures. Review of Systems Review of Systems: All systems reviewed & are unremarkable except as noted in HPI and below ROS unobtainable: Yes unobtainable due to medical condition and unobtainable due to mental status Exam Narrative: Gen -no acute distress Chest -bilateral clear to auscultation CV - Regular rate and rhythm with S1-S2. Abd - soft, NT/ND with positive bowel sounds. Ext - no pedal edema Psych- alert, pleasant and cooperative Skin - Warm and dry. Objective Data Vital Signs Vital Signs: Vital Signs - 24 hr 04/21/25 19:32 04/21/25 19:56 04/21/25 19:56 Temperature 36.7 C Pulse Rate 98 100 100 Respiratory Rate 20 24 H 24 H Blood Pressure 138/64 Pulse Oximetry 96 96 Oxygen Delivery Room Air Fraction of Inspired Oxygen 21 04/21/25 20:00 04/21/25 22:10 04/22/25 04:15 Temperature 36.2 C L Pulse Rate 98 85 Respiratory Rate 20 Blood Pressure 128/70 Pulse Oximetry 98 Oxygen Delivery Room Air Fraction of Inspired Oxygen 04/22/25 08:00 04/22/25 08:34 04/22/25 09:12 Temperature Pulse Rate 82 101 H Respiratory Rate 13 Blood Pressure 105/60 Pulse Oximetry 97 97 Oxygen Delivery Room Air Fraction of Inspired Oxygen 04/22/25 09:20 04/22/25 14:00 04/22/25 16:04 Temperature 37.0 C 36.9 C Pulse Rate 82 88 Respiratory Rate 13 18 Blood Pressure 105/60 108/60 Pulse Oximetry 97 96 Oxygen Delivery Room Air Fraction of Inspired Oxygen Intake/Output Intake/Output: Intake & Output 04/19/25 04/20/25 04/21/25 04/22/25 23:59 23:59 23:59 23:59 Intake Total 1520 1850 4034.6 2090 Output Total 725 1200 450 Balance 795 1850 2834.6 1640 Meds/Results Medications: Active Medications Generic Name Dose Route Start Last Admin Trade Name Freq PRN Reason Stop Dose Admin Acetaminophen 650 mg 03/29/25 19:45 04/22/25 11:01 Acetaminophen 325 Mg Tablet PO 650 mg Q4H PRN Administration Mild Pain (1-3) or Fever Albuterol 2.5 mg 03/29/25 21:50 Albuterol Sulfate Neb 2.5 Mg/3 Ml Inh INHALATION Q4-6H PRN Shortness Of Breath Albuterol 2 puff 04/03/25 17:11 Albuterol Sulfate (*Sp) Aerosol 1 Puff INHALATION Q6HRT PRN Shortness Of Breath Or Wheezing Alteplase, Recombinant 2 mg 04/16/25 09:02 04/16/25 10:24 Alteplase 2 Mg Vial (Cathflo) IV PUSH 2 mg ONCE PRN Administration Line Occlusion Atorvastatin Calcium 40 mg 03/30/25 09:00 04/22/25 09:12 Atorvastatin 40 Mg Tablet PO 40 mg DAILY DANIELE Administration Duloxetine HCl 60 mg 04/14/25 09:00 04/22/25 09:12 Duloxetine Hcl 30 Mg Capsule.Dr PO 60 mg DAILY DANIELE Administration Folic Acid 1 mg 03/30/25 09:00 04/22/25 09:12 Folic Acid 1 Mg Tablet PO 1 mg DAILY DANIELE Administration Heparin Sodium (Beef Lung) 50 units 03/30/25 09:00 04/22/25 09:13 Heparin Flush 50 Units/5 Ml Syringe IV PUSH Not Given QAM DANIELE Heparin Sodium (Beef Lung) 50 units 03/29/25 23:50 Heparin Flush 50 Units/5 Ml Syringe IV PUSH PRN PRN after intermittent infusion Heparin Sodium (Beef Lung) 50 units 03/29/25 23:50 04/20/25 05:30 Heparin Flush 50 Units/5 Ml Syringe IV PUSH 50 units PRN PRN Administration after blood draws Heparin Sodium (Porcine) 500 units 03/29/25 23:50 04/11/25 23:05 Heparin Sodium Lock Flush 500 Units/5 Ml Syringe IV PUSH 500 units PRN PRN Administration see comments below Sodium Chloride 1,000 mls @ 125 mls/hr 04/20/25 13:25 04/22/25 09:06 Normal Saline Iv IV CONT 125 mls/hr .Q8H DANIELE Administration Piperacillin Sod/Tazobactam 100 mls @ 200 mls/hr 04/22/25 14:00 04/22/25 15:11 Sod 4.5 gm/ Sodium Chloride IVPB Infused Q6HR DANIELE Infusion Ketorolac Tromethamine 10 mg 04/20/25 10:08 04/22/25 06:36 Ketorolac 10 Mg Tablet PO 10 mg Q6H PRN Administration Pain Rated 4-6 Loratadine 10 mg 03/30/25 09:00 04/22/25 09:12 Loratadine 10 Mg Tablet PO 10 mg QAM DANIELE Administration Menthol/Methyl Salicylate 1 applic 04/06/25 02:01 04/19/25 23:09 Menthol 10% / Methyl Salicylate 15% 57 Gm Tube TOPICAL 1 applic BID PRN Administration Muscle/Joint Pain Metoprolol Tartrate 25 mg 04/11/25 21:00 04/22/25 09:12 Metoprolol Tartrate 25 Mg Tablet PO 25 mg Q12HR DANIELE Administration Midodrine 10 mg 04/03/25 23:20 04/22/25 16:05 Midodrine Hcl 10 Mg Tablet PO 10 mg TID DANIELE Administration Montelukast Sodium 10 mg 03/29/25 21:00 04/21/25 22:10 Montelukast Sodium 10 Mg Tablet PO 10 mg HS DANIELE Administration Ondansetron HCl 4 mg 04/20/25 10:08 Ondansetron Inj 4 Mg/2 Ml Vial IV PUSH Q4H PRN Nausea And Vomiting Pantoprazole Sodium 40 mg 04/07/25 21:00 04/22/25 09:12 Pantoprazole 40 Mg Tablet PO 40 mg Q12HR DANIELE Administration Polyethylene Glycol 17 gm 04/02/25 09:00 04/22/25 09:14 Polyethylene Glycol 3350 17 Gm Powd.Pack PO Not Given QAM DANIELE Fluticasone/Salmeterol 2 puff 03/29/25 20:00 04/22/25 08:32 Fluticasone/Salmeterol 45-21 Mcg Inhaler 1 Puff INHALATION 2 puff Q12HRT DANIELE Administration Senna 17.2 mg 03/30/25 09:00 04/02/25 08:36 Sennosides 8.6 Mg Tablet PO 17.2 mg On Hold: 04/02/25 08:45 BID DANIELE Administration Sodium Chloride 10 ml 03/30/25 06:00 04/22/25 14:42 Central Line Flush IV PUSH 10 ml Q8HR DANIELE Administration Radiology Results: ITS Impressions Head CT 03/28/25 17:39 Impression: Age-indeterminate focus of left frontal subcortical ischemia. No hemorrhage. MRI recommended Head/Neck CTA 03/29/25 08:51 IMPRESSION: CTA NECK: 1. No ICA stenosis or other acute arterial abnormality. 2. Lytic bony metastatic disease C2, C5. 3. Lytic bony metastatic disease right scapula with large associated soft tissue component. CTA HEAD: 1. No large vessel arterial occlusive disease or other acute arterial abnormality. Brain MRI 03/30/25 15:18 IMPRESSION: 1. Scattered ossific white matter T2 hyperintensity consistent with chronic small vessel ischemic disease. No acute intracranial process. Venous Doppler Study 03/31/25 17:18 IMPRESSION: 1: No lower extremity deep venous thrombosis. Shoulder X-Ray 04/11/25 15:25 Impression: No acute fracture or malalignment. Chest X-Ray 04/22/25 13:14 Impression: Bilateral pneumonia. The findings appear slightly progressed compared to the previous study Labs Labs: Laboratory Results - last 24 hr 04/22/25 06:45 WBC 18.3 H RBC 2.74 L Hgb 7.9 L Hct 26.2 L MCV 95.6 MCH 28.8 MCHC 30.2 L RDW 17.2 H Plt Count 486 H MPV 9.0 Sodium 135 L Potassium 3.4 Chloride 106 Carbon Dioxide 21 L Anion Gap 8 BUN 7 Creatinine 0.68 L Estim Creat Clear Calc 64 Estimated GFR > 60 Glucose 89 Calcium 9.6 Magnesium 1.6 Quality VTE Prophylaxis VTE prophylaxis: mechanical ordered
[2025-04-22] MEDS: oxyCODONE/ACETAMINOPHEN (*CRX) 5-325 MG TABLET 1 TABLET PO (19:22)
[2025-04-22] MEDS: MONTELUKAST SODIUM 10 MG TABLET PO (20:44)
[2025-04-23] VITALS (8 sets, daily range): BP systolic 112–136; BP diastolic 60–88; PULSE 84–104; RESP 16–20; TEMP 36.2–36.8; O2SAT 95–98
[2025-04-23] MEDS: oxyCODONE/ACETAMINOPHEN (*CRX) 5-325 MG TABLET 1 TABLET PO ×3 (03:00→19:57)
[2025-04-23 04:18] LABS: Hematocrit 23.5 % (37.0-47.0); Hemoglobin 7.3 g/dL (12.0-15.0); Mean Corpuscular HGB Conc 31.1 g/dl (32-36); Mean Corpuscular Hemoglobin 29.1 pg (26-34); Mean Corpuscular Volume 93.6 fl (80-100); Platelet Count Result 414 k/mm3 (150-375); Red Blood Count 2.51 M/mm3 (4.2-5.4); White Blood Count 21.8 K/mm3 (4.5-10.0)
[2025-04-23 05:01] LABS: Anion Gap 7 mmol/L (4-12); Blood Urea Nitrogen 6 mg/dL (7-17); Calcium 9.0 mg/dL (8.4-10.2); Carbon Dioxide 19 mmol/L (22-30); Chloride 106 mmol/L (98-107); Estimated CRCL calculation 63 ml/min; Estimated Glomerular Filt Rate > 60; Glucose 89 mg/dL (65-110); Magnesium 1.3 mg/dL (1.6-2.3); Potassium 3.0 mmol/L (3.4-5.0); Sodium 132 mmol/L (137-145)
[2025-04-23] MEDS: PIPERACILLIN/TAZOBACTAM SOD 4.5 GM in SODIUM CHLORIDE 0.9% IV 100 ML 200 ML IVPB ×3 (05:03→17:01)
[2025-04-23] MEDS: CENTRAL LINE FLUSH 10 ML IV PUSH ×2 (05:03→21:06)
[2025-04-23] MEDS: FLUTICASONE/SALMETEROL 45-21 MCG INHALER 1 PUFF 2 PUFF INHALATION ×2 (07:56→21:15)
[2025-04-23] MEDS: SODIUM CHLORIDE 0.9% IV 1,000 ML 125 ML IV CONT ×2 (07:59→20:07)
[2025-04-23] MEDS: MAGNESIUM SULF 2 GM/WATER 50ML 2 GM/50 ML BAG IVPB (08:07)
[2025-04-23] MEDS: POTASSIUM CHLORIDE 20 MEQ PACKET (FOR LIQUID) 40 MEQ PO (08:10)
[2025-04-23] MEDS: FOLIC ACID 1 MG TABLET PO (08:12)
[2025-04-23] MEDS: LORATADINE 10 MG TABLET PO (08:12)
[2025-04-23] MEDS: ATORVASTATIN 40 MG TABLET PO (08:12)
[2025-04-23] MEDS: METOPROLOL TARTRATE 25 MG TABLET PO ×2 (08:12→21:06)
[2025-04-23] MEDS: MIDODRINE HCL 10 MG TABLET PO ×3 (08:13→16:59)
[2025-04-23] MEDS: PANTOPRAZOLE 40 MG TABLET PO ×2 (08:13→21:06)
[2025-04-23] MEDS: KETOROLAC 10 MG TABLET PO (08:19)
--- NOTE | 2025-04-23 10:50 | PCNFU ---
Nutrition Follow-Up Complete: Inadequate oral intake related to altered mental status as evidenced by report of poor intake 2 weeks Goal: PO intake >50% Patient will continue current goal. Pt current nutrition is Regular with diet supplements. Last recorded weight is 66 kg,up from 64.2 kg on admit. Bowel Motility: Last reported BM 04/18. Labs Reviewed:Mg 1.3, Na 132, Hct 23.5, Hgb 7.3, K 3.0 Meds Noted: Miralax, Protonix, Folic Acid, Senna, NS Skin: WNL Additional Notes: Spoke with nursing today, WC is elevated today. Patient remains on a regular diet with diet supplements. Oral Intake remains poor 40% reported for breakfast today. Diet supplements are providing an additional 350 kcal and 20 gm protein. Po intake encouraged. Agree with diet orders. Monitoring intakes, weights, labs, supplement tolerance, feeding ability, plan of care Follow up in 3 days
--- NOTE | 2025-04-23 13:52 | P.PNINF_ITS ---
Progress Note: A&P Assessment and Plan (1) Urinary tract infection: Code(s): N39.0 - Urinary tract infection, site not specified Status: Acute (2) Ovarian cancer: Code(s): C56.9 - Malignant neoplasm of unspecified ovary Status: Acute Plan #Leukocytosis--stable; no fever Enterococcus (amp resistant). s/p vanc and augmentin Repeat urine cx 04/19 neg #Pneumonia; MRSA nares neg REC change abx to zosyn alone in case neurotoxicity from cefepime-->continue zosyn through 04/27 BCx 04/19 NGTD Follow [facility] pharmacy staff and nursing staff Pt examined via telemedicine with HIPPA-protected audio-visual interface with pt at [facility] in [place], [place] and me in my office in [place]. Pt gave permission. Subjective Date/time seen: 04/23/25 13:52 Interval history: no fevers no calf pain no cough Exam Narrative: on room air, non-toxic, NAD abd soft NT chest: PAC--site ok Objective Data Vital Signs Vital Signs: Vital Signs - 24 hr 04/22/25 14:00 04/22/25 16:04 04/22/25 20:44 Temperature 98.6 F 98.5 F Pulse Rate 82 88 80 Respiratory Rate 13 18 Blood Pressure 105/60 108/60 Pulse Oximetry 97 96 Oxygen Delivery Fraction of Inspired Oxygen 04/22/25 20:53 04/22/25 20:56 04/22/25 21:02 Temperature 97.8 F Pulse Rate 95 94 82 Respiratory Rate 20 20 20 Blood Pressure 118/62 Pulse Oximetry 95 97 Oxygen Delivery Room Air Fraction of Inspired Oxygen 21 04/23/25 05:42 04/23/25 07:57 04/23/25 08:12 Temperature 97.5 F L 97.1 F L Pulse Rate 88 98 98 Respiratory Rate 20 16 Blood Pressure 112/60 136/79 Pulse Oximetry 95 97 Oxygen Delivery Fraction of Inspired Oxygen 04/23/25 08:13 04/23/25 08:13 04/23/25 13:29 Temperature 97.1 F L 97.6 F Pulse Rate 98 98 84 Respiratory Rate 16 16 18 Blood Pressure 129/88 Pulse Oximetry 97 97 98 Oxygen Delivery Room Air Fraction of Inspired Oxygen 21 Intake/Output Intake/Output: Intake & Output 04/20/25 04/21/25 04/22/2504/23/25 23:59 23:59 23:59 23:59 Intake Total 1850 4034.6 3410 1320 Output Total 1200 450 Balance 1850 2834.6 2960 1320 Meds/Results Medications: Active Medications Generic Name Dose Route Start Last Admin Trade Name Freq PRN Reason Stop Dose Admin Acetaminophen 650 mg 03/29/25 19:45 04/22/25 11:01 Acetaminophen 325 Mg Tablet PO 650 mg Q4H PRN Administration Mild Pain (1-3) or Fever Albuterol 2.5 mg 03/29/25 21:50 Albuterol Sulfate Neb 2.5 Mg/3 Ml Inh INHALATION Q4-6H PRN Shortness Of Breath Albuterol 2 puff 04/03/25 17:11 Albuterol Sulfate (*Sp) Aerosol 1 Puff INHALATION Q6HRT PRN Shortness Of Breath Or Wheezing Alteplase, Recombinant 2 mg 04/16/25 09:02 04/16/25 10:24 Alteplase 2 Mg Vial (Cathflo) IV PUSH 2 mg ONCE PRN Administration Line Occlusion Atorvastatin Calcium 40 mg 03/30/25 09:00 04/23/25 08:12 Atorvastatin 40 Mg Tablet PO 40 mg DAILY DANIELE Administration Duloxetine HCl 60 mg 04/14/25 09:00 04/23/25 08:12 Duloxetine Hcl 30 Mg Capsule.Dr PO 60 mg DAILY DANIELE Administration Folic Acid 1 mg 03/30/25 09:00 04/23/25 08:12 Folic Acid 1 Mg Tablet PO 1 mg DAILY DANIELE Administration Heparin Sodium (Beef Lung) 50 units 03/30/25 09:00 04/23/25 08:14 Heparin Flush 50 Units/5 Ml Syringe IV PUSH Not Given QAM DANIELE Heparin Sodium (Beef Lung) 50 units 03/29/25 23:50 Heparin Flush 50 Units/5 Ml Syringe IV PUSH PRN PRN after intermittent infusion Heparin Sodium (Beef Lung) 50 units 03/29/25 23:50 04/20/25 05:30 Heparin Flush 50 Units/5 Ml Syringe IV PUSH 50 units PRN PRN Administration after blood draws Heparin Sodium (Porcine) 500 units 03/29/25 23:50 04/11/25 23:05 Heparin Sodium Lock Flush 500 Units/5 Ml Syringe IV PUSH 500 units PRN PRN Administration see comments below Sodium Chloride 1,000 mls @ 125 mls/hr 04/20/25 13:25 04/23/25 07:59 Normal Saline Iv IV CONT 125 mls/hr .Q8H DANIELE Administration Piperacillin Sod/Tazobactam 100 mls @ 200 mls/hr 04/22/25 14:00 04/23/25 11:25 Sod 4.5 gm/ Sodium Chloride IVPB 04/27/25 23:59 200 mls/hr Q6HR DANIELE Administration Ketorolac Tromethamine 10 mg 04/20/25 10:08 04/23/25 08:19 Ketorolac 10 Mg Tablet PO 10 mg Q6H PRN Administration Pain Rated 4-6 Loratadine 10 mg 03/30/25 09:00 04/23/25 08:12 Loratadine 10 Mg Tablet PO 10 mg QAM DANIELE Administration Menthol/Methyl Salicylate 1 applic 04/06/25 02:01 04/19/25 23:09 Menthol 10% / Methyl Salicylate 15% 57 Gm Tube TOPICAL 1 applic BID PRN Administration Muscle/Joint Pain Metoprolol Tartrate 25 mg 04/11/25 21:00 04/23/25 08:12 Metoprolol Tartrate 25 Mg Tablet PO 25 mg Q12HR DANIELE Administration Midodrine 10 mg 04/03/25 23:20 04/23/25 08:13 Midodrine Hcl 10 Mg Tablet PO 10 mg TID DANIELE Administration Montelukast Sodium 10 mg 03/29/25 21:00 04/22/25 20:44 Montelukast Sodium 10 Mg Tablet PO 10 mg HS DANIELE Administration Ondansetron HCl 4 mg 04/20/25 10:08 Ondansetron Inj 4 Mg/2 Ml Vial IV PUSH Q4H PRN Nausea And Vomiting Oxycodone/Acetaminophen 1 tablet 04/22/25 18:33 04/23/25 11:24 Oxycodone/Acetaminophen (*Crx) 5-325 Mg Tablet PO 1 tablet Q6H PRN Administration Pain Rated 7-10 Pantoprazole Sodium 40 mg 04/07/25 21:00 04/23/25 08:13 Pantoprazole 40 Mg Tablet PO 40 mg Q12HR DANIELE Administration Polyethylene Glycol 17 gm 04/02/25 09:00 04/23/25 08:14 Polyethylene Glycol 3350 17 Gm Powd.Pack PO 17 gm QAM DANIELE Administration Fluticasone/Salmeterol 2 puff 03/29/25 20:00 04/23/25 07:56 Fluticasone/Salmeterol 45-21 Mcg Inhaler 1 Puff INHALATION 2 puff Q12HRT DANIELE Administration Senna 17.2 mg 03/30/25 09:00 04/02/25 08:36 Sennosides 8.6 Mg Tablet PO 17.2 mg On Hold: 04/02/25 08:45 BID DANIELE Administration Sodium Chloride 10 ml 03/30/25 06:00 04/23/25 05:03 Central Line Flush IV PUSH 10 ml Q8HR DANIELE Administration Radiology Results: ITS Impressions Head CT 03/28/25 17:39 Impression: Age-indeterminate focus of left frontal subcortical ischemia. No hemorrhage. MRI recommended Head/Neck CTA 03/29/25 08:51 IMPRESSION: CTA NECK: 1. No ICA stenosis or other acute arterial abnormality. 2. Lytic bony metastatic disease C2, C5. 3. Lytic bony metastatic disease right scapula with large associated soft tissue component. CTA HEAD: 1. No large vessel arterial occlusive disease or other acute arterial abnormality. Brain MRI 03/30/25 15:18 IMPRESSION: 1. Scattered ossific white matter T2 hyperintensity consistent with chronic small vessel ischemic disease. No acute intracranial process. Venous Doppler Study 03/31/25 17:18 IMPRESSION: 1: No lower extremity deep venous thrombosis. Shoulder X-Ray 04/11/25 15:25 Impression: No acute fracture or malalignment. Chest X-Ray 04/22/25 13:14 Impression: Bilateral pneumonia. The findings appear slightly progressed compared to the previous study Labs Labs: Laboratory Results - last 24 hr 04/23/25 04:11 WBC 21.8 H RBC 2.51 L Hgb 7.3 L Hct 23.5 L MCV 93.6 MCH 29.1 MCHC 31.1 L RDW 17.1 H Plt Count 414 H MPV 8.6 Sodium 132 L Potassium 3.0 L Chloride 106 Carbon Dioxide 19 L Anion Gap 7 BUN 6 L Creatinine 0.70 Estim Creat Clear Calc 63 Estimated GFR > 60 Glucose 89 Calcium 9.0 Magnesium 1.3 L
--- NOTE | 2025-04-23 14:49 | P.PNIM_ITS ---
Progress Note: A&P Assessment and Plan (1) Patent foramen ovale with right to left shunt: Code(s): Q21.12 - Patent foramen ovale Status: Acute (2) Cardiomyopathy: Code(s): I42.9 - Cardiomyopathy, unspecified Status: Acute (3) Hypercalcemia of malignancy: Code(s): E83.52 - Hypercalcemia Status: Acute (4) Hypokalemia: Code(s): E87.6 - Hypokalemia Status: Acute (5) Urinary tract infection: Code(s): N39.0 - Urinary tract infection, site not specified Status: Acute (6) Anemia: Code(s): D64.9 - Anemia, unspecified Status: Acute (7) Ovarian cancer: Code(s): C56.9 - Malignant neoplasm of unspecified ovary Status: Acute (8) Altered mental status: Code(s): R41.82 - Altered mental status, unspecified Status: Acute Plan 59-year-old female with past medical history of stage IV ovarian cancer with metastasis presenting with worsening mental status. She had recent clearly experiencing weakness, reduced appetite, slurring speech These symptoms were a significant change from the patient's baseline just days prior. Patient has been treated with chemo, radiation in the past, currently on maintenance therapy with Keytruda. , CT head without contrast showed age indeterminate focus of left frontal subcortical ischemia, no hemorrhage, CTA head and neck last night showed no ICA stenosis or other acute arterial abnormality, lytic bony metastatic disease C2, C5, lytic bony metastatic disease right scapula with large associated soft tissue component, no large vessel arterial occlusion disease or other acute arterial abnormality. Blood workup showed calcium level of 14.4 . Received calcitonin, zoledronic acid hypercalcemia. 1. Altered mental status/acute encephalopathy: CT with age indeterminate focus of left frontal subcortical ischemia MRI brain unremarkable Echocardiogram with EF of 40-45% with regional wall motion abnormality, PFO Mental status has improved Neurology following 2. UTI: Completed course of ceftriaxone However UA positive for UTI again Restarted ceftriaxone 04/11/2025 Follow urine culture Febrile again 04/12/2025. Switch ceftriaxone to cefepime Follow urine culture # Vaginitis received a dose of fluconazole 04/13/2025 3. Hypercalcemia: Likely secondary to malignancy Received zoledronic acid, calcitonin, IV fluids Hypercalcemia has resolved 4. Anemia: Status post 2 units of PRBC H&H stable H&H dropped today to 7.6. No signs of bleeding. Will recheck this evening and monitor 5. History of metastatic ovarian cancer: MRI brain unremarkable Patient follows up with Oncology at [facility] 6.) Cardiomyopathy: Patent foramen ovale Echo showing EF 40-45% with regional wall motion abnormality and PFO with R-->L shunt Cardiology consulted. LE venous doppler negative for DVT so unlikely paradoxical CVA. Metoprolol tartrate started. Maxide stopped and losartan added Due to HoTN and anemia, Plavix stopped. Continue tele monitoring. Continue statin. Verapamil has been stopped Will need home O2 evaluation before discharge Currently on room air 7. History of hypertension: Continue with losartan, metoprolol Verapamil has been stopped no overnight events. patient is found to lice in her hair, and being treated with permethrin, in isolation, stats did participate in the PT and able to tolerate diet, discussed with her nurse and she is doing better, patient urine culture is positive for enterococcus faecium, multi drug resistant, sensitive to Vancomycin, discussed with clinical pharmacist, will start the antibiotics and will switch over to oral upon discharge, patient remains clinically stable, will monitor. patient remains clinically stable, has no new complaints, will continue IV abx today, and plan was discharge her on 04/17 , however patient is accepted by [facility] and they do not any bed until Sunday at that time will discharge the patient. on 04/17 patient complained of right sided shoulder and neck pain, most likely muscular pain, will apply Lidoderm patches and monitor. plan was to discharge to [facility] however patient white counts are rising and etiology is uncertain, patient denies any fever, dysuria, or abdominal pain, stopped her oral Linzess and restarted IV vancomycin, did order repeat blood and urine culture, no growth the so far her chest x-ray on 04/18 did not show pulmonary pathology, however chest x-ray today showed worsening b/l pnemonia, seen by consult ID was added Cefepime however Cefepime was dc due to risk of neurotoxicity and zosyn was started and continue doxycycline her white counts are trending down, further evaluation and recommendation to follow, will monitor follow up repeat blood and urine cultures. 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 8. Code status: Full 9. DVT prophylaxis: SCDs 9. Disposition: Pending placement. 10. Tachycardia with mild fever Re-culture. Chest x-ray negative. UA positive. Blood culture pending. Treat as UTI. With ceftriaxone Subjective Date/time seen: 04/23/25 14:49 Interval history: no overnight events. patient is found to lice in her hair, and being treated with permethrin, in isolation, stats did participate in the PT and able to tolerate diet, discussed with her nurse and she is doing better, patient urine culture is positive for enterococcus faecium, multi drug resistant, sensitive to Vancomycin, discussed with clinical pharmacist, will start the antibiotics and will switch over to oral upon discharge, patient remains clinically stable, will monitor. patient remains clinically stable, has no new complaints, will continue IV abx today, and plan was discharge her on 04/17 , however patient is accepted by [facility] and they do not any bed until Sunday at that time will discharge the patient. on 04/17 patient complained of right sided shoulder and neck pain, most likely muscular pain, will apply Lidoderm patches and monitor. plan was to discharge to [facility] however patient white counts are rising and etiology is uncertain, patient denies any fever, dysuria, or abdominal pain, stopped her oral Linzess and restarted IV vancomycin, did order repeat blood and urine culture, no growth the so far her chest x-ray on 04/18 did not show pulmonary pathology, however chest x-ray today showed worsening b/l pnemonia, seen by consult ID was added Cefepime however Cefepime was dc due to risk of neurotoxicity and zosyn was started and continue doxycycline her white counts are trending down, further evaluation and recommendation to follow, will monitor follow up repeat blood and urine cultures. 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 Review of Systems Review of Systems: All systems reviewed & are unremarkable except as noted in HPI and below Exam Narrative: Gen -no acute distress Chest -bilateral clear to auscultation CV - Regular rate and rhythm with S1-S2. Abd - soft, NT/ND with positive bowel sounds. Ext - no pedal edema Psych- alert, pleasant and cooperative Skin - Warm and dry. Objective Data Vital Signs Vital Signs: Vital Signs - 24 hr 04/22/25 16:04 04/22/25 20:44 04/22/25 20:53 Temperature 36.9 C Pulse Rate 88 80 95 Respiratory Rate 18 20 Blood Pressure 108/60 Pulse Oximetry 96 Oxygen Delivery Fraction of Inspired Oxygen 04/22/25 20:56 04/22/25 21:02 04/23/25 05:42 Temperature 36.6 C 36.4 C L Pulse Rate 94 82 88 Respiratory Rate 20 20 20 Blood Pressure 118/62 112/60 Pulse Oximetry 95 97 95 Oxygen Delivery Room Air Fraction of Inspired Oxygen 21 04/23/25 07:57 04/23/25 08:12 04/23/25 08:13 Temperature 36.2 C L 36.2 C L Pulse Rate 98 98 98 Respiratory Rate 16 16 Blood Pressure 136/79 Pulse Oximetry 97 97 Oxygen Delivery Fraction of Inspired Oxygen 04/23/25 08:13 04/23/25 13:29 Temperature 36.4 C Pulse Rate 98 84 Respiratory Rate 16 18 Blood Pressure 129/88 Pulse Oximetry 97 98 Oxygen Delivery Room Air Fraction of Inspired Oxygen 21 Intake/Output Intake/Output: Intake & Output 04/20/25 04/21/25 04/22/25 04/23/25 23:59 23:59 23:59 23:59 Intake Total 1850 4034.6 3410 1320 Output Total 1200 450 Balance 1850 2834.6 2960 1320 Meds/Results Medications: Active Medications Generic Name Dose Route Start Last Admin Trade Name Freq PRN Reason Stop Dose Admin Acetaminophen 650 mg 03/29/25 19:45 04/22/25 11:01 Acetaminophen 325 Mg Tablet PO 650 mg Q4H PRN Administration Mild Pain (1-3) or Fever Albuterol 2.5 mg 03/29/25 21:50 Albuterol Sulfate Neb 2.5 Mg/3 Ml Inh INHALATION Q4-6H PRN Shortness Of Breath Albuterol 2 puff 04/03/25 17:11 Albuterol Sulfate (*Sp) Aerosol 1 Puff INHALATION Q6HRT PRN Shortness Of Breath Or Wheezing Alteplase, Recombinant 2 mg 04/16/25 09:02 04/16/25 10:24 Alteplase 2 Mg Vial (Cathflo) IV PUSH 2 mg ONCE PRN Administration Line Occlusion Atorvastatin Calcium 40 mg 03/30/25 09:00 04/23/25 08:12 Atorvastatin 40 Mg Tablet PO 40 mg DAILY DANIELE Administration Duloxetine HCl 60 mg 04/14/25 09:00 04/23/25 08:12 Duloxetine Hcl 30 Mg Capsule.Dr PO 60 mg DAILY DANIELE Administration Folic Acid 1 mg 03/30/25 09:00 04/23/25 08:12 Folic Acid 1 Mg Tablet PO 1 mg DAILY DANIELE Administration Heparin Sodium (Beef Lung) 50 units 03/30/25 09:00 04/23/25 08:14 Heparin Flush 50 Units/5 Ml Syringe IV PUSH Not Given QAM DANIELE Heparin Sodium (Beef Lung) 50 units 03/29/25 23:50 Heparin Flush 50 Units/5 Ml Syringe IV PUSH PRN PRN after intermittent infusion Heparin Sodium (Beef Lung) 50 units 03/29/25 23:50 04/20/25 05:30 Heparin Flush 50 Units/5 Ml Syringe IV PUSH 50 units PRN PRN Administration after blood draws Heparin Sodium (Porcine) 500 units 03/29/25 23:50 04/11/25 23:05 Heparin Sodium Lock Flush 500 Units/5 Ml Syringe IV PUSH 500 units PRN PRN Administration see comments below Sodium Chloride 1,000 mls @ 125 mls/hr 04/20/25 13:25 04/23/25 07:59 Normal Saline Iv IV CONT 125 mls/hr .Q8H DANIELE Administration Piperacillin Sod/Tazobactam 100 mls @ 200 mls/hr 04/22/25 14:00 04/23/25 11:25 Sod 4.5 gm/ Sodium Chloride IVPB 04/27/25 23:59 200 mls/hr Q6HR DANIELE Administration Ketorolac Tromethamine 10 mg 04/20/25 10:08 04/23/25 08:19 Ketorolac 10 Mg Tablet PO 10 mg Q6H PRN Administration Pain Rated 4-6 Loratadine 10 mg 03/30/25 09:00 04/23/25 08:12 Loratadine 10 Mg Tablet PO 10 mg QAM DANIELE Administration Menthol/Methyl Salicylate 1 applic 04/06/25 02:01 04/19/25 23:09 Menthol 10% / Methyl Salicylate 15% 57 Gm Tube TOPICAL 1 applic BID PRN Administration Muscle/Joint Pain Metoprolol Tartrate 25 mg 04/11/25 21:00 04/23/25 08:12 Metoprolol Tartrate 25 Mg Tablet PO 25 mg Q12HR DANIELE Administration Midodrine 10 mg 04/03/25 23:20 04/23/25 14:17 Midodrine Hcl 10 Mg Tablet PO 10 mg TID DANIELE Administration Montelukast Sodium 10 mg 03/29/25 21:00 04/22/25 20:44 Montelukast Sodium 10 Mg Tablet PO 10 mg HS DANIELE Administration Ondansetron HCl 4 mg 04/20/25 10:08 Ondansetron Inj 4 Mg/2 Ml Vial IV PUSH Q4H PRN Nausea And Vomiting Oxycodone/Acetaminophen 1 tablet 04/22/25 18:33 04/23/25 11:24 Oxycodone/Acetaminophen (*Crx) 5-325 Mg Tablet PO 1 tablet Q6H PRN Administration Pain Rated 7-10 Pantoprazole Sodium 40 mg 04/07/25 21:00 04/23/25 08:13 Pantoprazole 40 Mg Tablet PO 40 mg Q12HR DANIELE Administration Polyethylene Glycol 17 gm 04/02/25 09:00 04/23/25 08:14 Polyethylene Glycol 3350 17 Gm Powd.Pack PO 17 gm QAM DANIELE Administration Fluticasone/Salmeterol 2 puff 03/29/25 20:00 04/23/25 07:56 Fluticasone/Salmeterol 45-21 Mcg Inhaler 1 Puff INHALATION 2 puff Q12HRT DANIELE Administration Senna 17.2 mg 03/30/25 09:00 04/02/25 08:36 Sennosides 8.6 Mg Tablet PO 17.2 mg On Hold: 04/02/25 08:45 BID DANIELE Administration Sodium Chloride 10 ml 03/30/25 06:00 04/23/25 14:17 Central Line Flush IV PUSH Not Given Q8HR [facility] Radiology Results: ITS Impressions Head/Neck CTA 03/29/25 08:51 IMPRESSION: CTA NECK: 1. No ICA stenosis or other acute arterial abnormality. 2. Lytic bony metastatic disease C2, C5. 3. Lytic bony metastatic disease right scapula with large associated soft tissue component. CTA HEAD: 1. No large vessel arterial occlusive disease or other acute arterial abnormality. Brain MRI 03/30/25 15:18 IMPRESSION: 1. Scattered ossific white matter T2 hyperintensity consistent with chronic small vessel ischemic disease. No acute intracranial process. Venous Doppler Study 03/31/25 17:18 IMPRESSION: 1: No lower extremity deep venous thrombosis. Shoulder X-Ray 04/11/25 15:25 Impression: No acute fracture or malalignment. Chest X-Ray 04/22/25 13:14 Impression: Bilateral pneumonia. The findings appear slightly progressed compared to the previous study Head CT 04/23/25 14:10 Impression: 1.No acute intracranial abnormality. Labs Labs: Laboratory Results - last 24 hr 04/23/25 04:11 WBC 21.8 H RBC 2.51 L Hgb 7.3 L Hct 23.5 L MCV 93.6 MCH 29.1 MCHC 31.1 L RDW 17.1 H Plt Count 414 H MPV 8.6 Sodium 132 L Potassium 3.0 L Chloride 106 Carbon Dioxide 19 L Anion Gap 7 BUN 6 L Creatinine 0.70 Estim Creat Clear Calc 63 Estimated GFR > 60 Glucose 89 Calcium 9.0 Magnesium 1.3 L Quality VTE Prophylaxis VTE prophylaxis: mechanical ordered
[2025-04-23] MEDS: MONTELUKAST SODIUM 10 MG TABLET PO (21:06)
[2025-04-24] VITALS (8 sets, daily range): BP systolic 122–146; BP diastolic 50–80; PULSE 72–104; RESP 16–20; TEMP 36.5–37; O2SAT 96–100
[2025-04-24] MEDS: PIPERACILLIN/TAZOBACTAM SOD 4.5 GM in SODIUM CHLORIDE 0.9% IV 100 ML 200 ML IVPB ×4 (00:19→17:14)
[2025-04-24 05:24] LABS: Hematocrit 22.8 % (37.0-47.0); Hemoglobin 7.1 g/dL (12.0-15.0); Mean Corpuscular HGB Conc 31.1 g/dl (32-36); Mean Corpuscular Hemoglobin 29.3 pg (26-34); Mean Corpuscular Volume 94.2 fl (80-100); Platelet Count Result 445 k/mm3 (150-375); Red Blood Count 2.42 M/mm3 (4.2-5.4); White Blood Count 20.6 K/mm3 (4.5-10.0)
[2025-04-24] MEDS: oxyCODONE/ACETAMINOPHEN (*CRX) 5-325 MG TABLET 1 TABLET PO ×3 (05:27→21:06)
[2025-04-24] MEDS: SODIUM CHLORIDE 0.9% IV 1,000 ML 125 ML IV CONT ×2 (05:31→17:14)
[2025-04-24 05:36] LABS: Anion Gap 6 mmol/L (4-12); Blood Urea Nitrogen 6 mg/dL (7-17); Calcium 8.5 mg/dL (8.4-10.2); Carbon Dioxide 17 mmol/L (22-30); Chloride 108 mmol/L (98-107); Estimated CRCL calculation 60 ml/min; Estimated Glomerular Filt Rate > 60; Glucose 78 mg/dL (65-110); Magnesium 1.8 mg/dL (1.6-2.3); Potassium 3.2 mmol/L (3.4-5.0); Sodium 131 mmol/L (137-145)
[2025-04-24] MEDS: ATORVASTATIN 40 MG TABLET PO (08:43)
[2025-04-24] MEDS: METOPROLOL TARTRATE 25 MG TABLET PO ×2 (08:44→21:07)
[2025-04-24] MEDS: PANTOPRAZOLE 40 MG TABLET PO ×2 (08:44→21:06)
[2025-04-24] MEDS: FOLIC ACID 1 MG TABLET PO (08:44)
[2025-04-24] MEDS: MIDODRINE HCL 10 MG TABLET PO ×3 (08:44→17:14)
[2025-04-24] MEDS: LORATADINE 10 MG TABLET PO (08:44)
[2025-04-24] MEDS: CENTRAL LINE FLUSH 10 ML IV PUSH ×2 (13:10→22:05)
--- NOTE | 2025-04-24 15:07 | P.PNINF_ITS ---
Progress Note: A&P Assessment and Plan (1) Urinary tract infection: Code(s): N39.0 - Urinary tract infection, site not specified Status: Acute (2) Ovarian cancer: Code(s): C56.9 - Malignant neoplasm of unspecified ovary Status: Acute Plan #Leukocytosis--stable; no fever Enterococcus (amp resistant). s/p vanc and augmentin Repeat urine cx 04/19 neg #Pneumonia; MRSA nares neg REC continue zosyn alone in case neurotoxicity from cefepime-->continue zosyn through 04/27 BCx 04/19 NGTD Follow [facility] pharmacy staff Pt examined via telemedicine with HIPAA-protected audio-visual interface with pt at [facility] in [place], [place] and me in my office in [place]. Pt gave permission. Subjective Date/time seen: 04/24/25 15:07 Interval history: no fevers doesn't feel so good +abd and back pain Exam Narrative: NAD, on room air right PAC--no erythema abd soft tender Objective Data Vital Signs Vital Signs: Vital Signs - 24 hr 04/23/25 20:00 04/23/25 20:26 04/23/25 21:06 Temperature 98.3 F Pulse Rate 104 H 104 H Respiratory Rate 20 Blood Pressure 123/60 Pulse Oximetry 98 Oxygen Delivery Room Air Fraction of Inspired Oxygen 21 04/23/25 21:15 04/23/25 21:15 04/24/25 06:00 Temperature 98.6 F Pulse Rate 93 93 104 H Respiratory Rate 16 16 20 Blood Pressure 146/68 H Pulse Oximetry 95 97 Oxygen Delivery Room Air Fraction of Inspired Oxygen 21 04/24/25 08:00 04/24/25 08:27 04/24/25 08:30 Temperature 97.7 F Pulse Rate 88 101 H Respiratory Rate 16 20 Blood Pressure 129/80 128/73 Pulse Oximetry 98 100 Oxygen Delivery Room Air Fraction of Inspired Oxygen 04/24/25 08:44 04/24/25 09:12 04/24/25 13:15 Temperature 98.3 F Pulse Rate 101 H 87 90 Respiratory Rate 20 Blood Pressure 134/67 129/61 Pulse Oximetry 98 Oxygen Delivery Fraction of Inspired Oxygen Intake/Output Intake/Output: Intake & Output 04/21/25 04/22/25 04/23/25 04/24/25 23:59 23:59 23:59 23:59 Intake Total 4034.6 3410 2640 1500 Output Total 1200 450 Balance 2834.6 2960 2640 1500 Meds/Results Medications: Active Medications Generic Name Dose Route Start Last Admin Trade Name Freq PRN Reason Stop Dose Admin Acetaminophen 650 mg 03/29/25 19:45 04/22/25 11:01 Acetaminophen 325 Mg Tablet PO 650 mg Q4H PRN Administration Mild Pain (1-3) or Fever Albuterol 2.5 mg 03/29/25 21:50 Albuterol Sulfate Neb 2.5 Mg/3 Ml Inh INHALATION Q4-6H PRN Shortness Of Breath Albuterol 2 puff 04/03/25 17:11 Albuterol Sulfate (*Sp) Aerosol 1 Puff INHALATION Q6HRT PRN Shortness Of Breath Or Wheezing Alteplase, Recombinant 2 mg 04/16/25 09:02 04/16/25 10:24 Alteplase 2 Mg Vial (Cathflo) IV PUSH 2 mg ONCE PRN Administration Line Occlusion Atorvastatin Calcium 40 mg 03/30/25 09:00 04/24/25 08:43 Atorvastatin 40 Mg Tablet PO 40 mg DAILY DANIELE Administration Duloxetine HCl 60 mg 04/14/25 09:00 04/24/25 08:44 Duloxetine Hcl 30 Mg Capsule.Dr PO 60 mg DAILY DANIELE Administration Folic Acid 1 mg 03/30/25 09:00 04/24/25 08:44 Folic Acid 1 Mg Tablet PO 1 mg DAILY DANIELE Administration Heparin Sodium (Beef Lung) 50 units 03/30/25 09:00 04/24/25 08:44 Heparin Flush 50 Units/5 Ml Syringe IV PUSH Not Given QAM DANIELE Heparin Sodium (Beef Lung) 50 units 03/29/25 23:50 Heparin Flush 50 Units/5 Ml Syringe IV PUSH PRN PRN after intermittent infusion Heparin Sodium (Beef Lung) 50 units 03/29/25 23:50 04/20/25 05:30 Heparin Flush 50 Units/5 Ml Syringe IV PUSH 50 units PRN PRN Administration after blood draws Heparin Sodium (Porcine) 500 units 03/29/25 23:50 04/11/25 23:05 Heparin Sodium Lock Flush 500 Units/5 Ml Syringe IV PUSH 500 units PRN PRN Administration see comments below Sodium Chloride 1,000 mls @ 125 mls/hr 04/20/25 13:25 04/24/25 05:31 Normal Saline Iv IV CONT 125 mls/hr .Q8H DANIELE Administration Piperacillin Sod/Tazobactam 100 mls @ 200 mls/hr 04/22/25 14:00 04/24/25 13:09 Sod 4.5 gm/ Sodium Chloride IVPB 04/27/25 23:59 200 mls/hr Q6HR DANIELE Administration Ketorolac Tromethamine 10 mg 04/20/25 10:08 04/23/25 08:19 Ketorolac 10 Mg Tablet PO 10 mg Q6H PRN Administration Pain Rated 4-6 Loratadine 10 mg 03/30/25 09:00 04/24/25 08:44 Loratadine 10 Mg Tablet PO 10 mg QAM DANIELE Administration Menthol/Methyl Salicylate 1 applic 04/06/25 02:01 04/19/25 23:09 Menthol 10% / Methyl Salicylate 15% 57 Gm Tube TOPICAL 1 applic BID PRN Administration Muscle/Joint Pain Metoprolol Tartrate 25 mg 04/11/25 21:00 04/24/25 08:44 Metoprolol Tartrate 25 Mg Tablet PO 25 mg Q12HR DANIELE Administration Midodrine 10 mg 04/03/25 23:20 04/24/25 13:09 Midodrine Hcl 10 Mg Tablet PO 10 mg TID DANIELE Administration Montelukast Sodium 10 mg 03/29/25 21:00 04/23/25 21:06 Montelukast Sodium 10 Mg Tablet PO 10 mg HS DANIELE Administration Ondansetron HCl 4 mg 04/20/25 10:08 Ondansetron Inj 4 Mg/2 Ml Vial IV PUSH Q4H PRN Nausea And Vomiting Oxycodone/Acetaminophen 1 tablet 04/22/25 18:33 04/24/25 13:09 Oxycodone/Acetaminophen (*Crx) 5-325 Mg Tablet PO 1 tablet Q6H PRN Administration Pain Rated 7-10 Pantoprazole Sodium 40 mg 04/07/25 21:00 04/24/25 08:44 Pantoprazole 40 Mg Tablet PO 40 mg Q12HR DANIELE Administration Polyethylene Glycol 17 gm 04/02/25 09:00 04/24/25 08:44 Polyethylene Glycol 3350 17 Gm Powd.Pack PO Not Given QAM [facility] Fluticasone/Salmeterol 2 puff 03/29/25 20:00 04/24/25 09:25 Fluticasone/Salmeterol 45-21 Mcg Inhaler 1 Puff INHALATION Not Given Q12HRT DANIELE Senna 17.2 mg 03/30/25 09:00 04/02/25 08:36 Sennosides 8.6 Mg Tablet PO 17.2 mg On Hold: 04/02/25 08:45 BID DANIELE Administration Sodium Chloride 10 ml 03/30/25 06:00 04/24/25 13:10 Central Line Flush IV PUSH 10 ml Q8HR DANIELE Administration Radiology Results: ITS Impressions Head/Neck CTA 03/29/25 08:51 IMPRESSION: CTA NECK: 1. No ICA stenosis or other acute arterial abnormality. 2. Lytic bony metastatic disease C2, C5. 3. Lytic bony metastatic disease right scapula with large associated soft tissue component. CTA HEAD: 1. No large vessel arterial occlusive disease or other acute arterial abnormality. Brain MRI 03/30/25 15:18 IMPRESSION: 1. Scattered ossific white matter T2 hyperintensity consistent with chronic s mall vessel ischemic disease. No acute intracranial process. Venous Doppler Study 03/31/25 17:18 IMPRESSION: 1: No lower extremity deep venous thrombosis. Shoulder X-Ray 04/11/25 15:25 Impression: No acute fracture or malalignment. Chest X-Ray 04/22/25 13:14 Impression: Bilateral pneumonia. The findings appear slightly progressed compared to the previous study Head CT 04/23/25 14:10 Impression: 1.No acute intracranial abnormality. Chest/Abdomen/Pelvis CT 04/23/25 15:33 IMPRESSION: 1. [Multiple pulmonary nodules are noted in the lungs bilaterally measuring up to 12 mm. There is a enlarged precarinal lymph node measuring 16 mm. This may represent metastases. Multiple liver masses are noted suggestive of malignancy. Labs Labs: Laboratory Results - last 24 hr 04/24/25 04/24/25 04:53 06:08 WBC 20.6 H RBC 2.42 L Hgb 7.1 L Hct 22.8 L MCV 94.2 MCH 29.3 MCHC 31.1 L RDW 17.5 H Plt Count 445 H MPV 9.1 Sodium 131 L Potassium 3.2 L Chloride 108 H Carbon Dioxide 17 L Anion Gap 6 BUN 6 L Creatinine 0.73 Estim Creat Clear Calc 60 Estimated GFR > 60 Glucose 78 POC Capillary Glucose 103 Calcium 8.5 Magnesium 1.8
--- NOTE | 2025-04-24 17:20 | PM.IMPN ---
Progress Note: A&P Assessment and Plan (1) Patent foramen ovale with right to left shunt: Code(s): Q21.12 - Patent foramen ovale Status: Acute (2) Cardiomyopathy: Code(s): I42.9 - Cardiomyopathy, unspecified Status: Acute (3) Hypercalcemia of malignancy: Code(s): E83.52 - Hypercalcemia Status: Acute (4) Hypokalemia: Code(s): E87.6 - Hypokalemia Status: Acute (5) Urinary tract infection: Code(s): N39.0 - Urinary tract infection, site not specified Status: Acute (6) Anemia: Code(s): D64.9 - Anemia, unspecified Status: Acute (7) Ovarian cancer: Code(s): C56.9 - Malignant neoplasm of unspecified ovary Status: Acute (8) Altered mental status: Code(s): R41.82 - Altered mental status, unspecified Status: Acute Plan 59-year-old female with past medical history of stage IV ovarian cancer with metastasis presenting with worsening mental status. She had recent clearly experiencing weakness, reduced appetite, slurring speech These symptoms were a significant change from the patient's baseline just days prior. Patient has been treated with chemo, radiation in the past, currently on maintenance therapy with Keytruda. , CT head without contrast showed age indeterminate focus of left frontal subcortical ischemia, no hemorrhage, CTA head and neck last night showed no ICA stenosis or other acute arterial abnormality, lytic bony metastatic disease C2, C5, lytic bony metastatic disease right scapula with large associated soft tissue component, no large vessel arterial occlusion disease or other acute arterial abnormality. Blood workup showed calcium level of 14.4 . Received calcitonin, zoledronic acid hypercalcemia. 1. Altered mental status/acute encephalopathy: CT with age indeterminate focus of left frontal subcortical ischemia MRI brain unremarkable Echocardiogram with EF of 40-45% with regional wall motion abnormality, PFO Mental status has improved Neurology following 2. UTI: Completed course of ceftriaxone However UA positive for UTI again Restarted ceftriaxone 04/11/2025 Follow urine culture Febrile again 04/12/2025. Switch ceftriaxone to cefepime Follow urine culture Which came back as Enterococcus ampicillin resistant status post vancomycin IV Repeat urine culture 04/19Is negative. Patient currently on Zosyn # Vaginitis received a dose of fluconazole 04/13/2025 3. Hypercalcemia: Likely secondary to malignancy Received zoledronic acid, calcitonin, IV fluids Hypercalcemia has resolved 4. Anemia: Status post 2 units of PRBC H&H stable H&H dropped today to 7.6. No signs of bleeding. 5. History of metastatic ovarian cancer: MRI brain unremarkable Patient follows up with Oncology at [facility] 6.) Cardiomyopathy: Patent foramen ovale Echo showing EF 40-45% with regional wall motion abnormality and PFO with R-->L shunt Cardiology consulted. LE venous doppler negative for DVT so unlikely paradoxical CVA. Metoprolol tartrate started. Maxide stopped and losartan added Due to HoTN and anemia, Plavix stopped. Continue tele monitoring. Continue statin. Verapamil has been stopped Will need home O2 evaluation before discharge Currently on room air 7. History of hypertension: Continue with losartan, metoprolol Verapamil has been stopped #Lice in hair treated with permethrin # disposition to [place] [facility] when bed available # pneumonia: ID on board CT chest abdomen pelvis performed which showed multiple pulmonary nodules noted in the lungs bilaterally measuring up to 12 mm. May represent metastatic disease. Multiple liver masses are also noted suggestive of malignancy. Otherwise lungs are clear. 8. Code status: Full 9. DVT prophylaxis: SCDs 9. Disposition: Pending placement. 10. Tachycardia with mild fever Re-culture. Chest x-ray negative. UA positive. Blood culture pending. Treat as UTI. With ceftriaxone Subjective Date/time seen: 04/24/25 17:20 Interval history: No overnight events. Denies any new complaints. Generalized weakness. WBC count still elevated. Review of Systems Review of Systems: All systems reviewed & are unremarkable except as noted in HPI and below Exam Narrative: Gen -no acute distress Chest -bilateral clear to auscultation CV - Regular rate and rhythm with S1-S2. Abd - soft, NT/ND with positive bowel sounds. Ext - no pedal edema Psych- alert, pleasant and cooperative Skin - Warm and dry. Objective Data Vital Signs Vital Signs: Vital Signs - 24 hr 04/23/25 20:00 04/23/25 20:26 04/23/25 21:06 Temperature 98.3 F Pulse Rate 104 H 104 H Respiratory Rate 20 Blood Pressure 123/60 Pulse Oximetry 98 Oxygen Delivery Room Air Fraction of Inspired Oxygen 21 04/23/25 21:15 04/23/25 21:15 04/24/25 06:00 Temperature 98.6 F Pulse Rate 93 93 104 H Respiratory Rate 16 16 20 Blood Pressure 146/68 H Pulse Oximetry 95 97 Oxygen Delivery Room Air Fraction of Inspired Oxygen 21 04/24/25 08:00 04/24/25 08:27 04/24/25 08:30 Temperature 97.7 F Pulse Rate 88 101 H Respiratory Rate 16 20 Blood Pressure 129/80 128/73 Pulse Oximetry 98 100 Oxygen Delivery Room Air Fraction of Inspired Oxygen 04/24/25 08:44 04/24/25 09:12 04/24/25 13:15 Temperature 98.3 F Pulse Rate 101 H 87 90 Respiratory Rate 20 Blood Pressure 134/67 129/61 Pulse Oximetry 98 Oxygen Delivery Fraction of Inspired Oxygen Intake/Output Intake/Output: Intake & Output 04/21/25 04/22/25 04/23/25 04/24/25 23:59 23:59 23:59 23:59 Intake Total 4034.6 3410 2640 2600 Output Total 1200 450 Balance 2834.6 2960 2640 2600 Meds/Results Medications: Active Medications Generic Name Dose Route Start Last Admin Trade Name Freq PRN Reason Stop Dose Admin Acetaminophen 650 mg 03/29/25 19:45 04/22/25 11:01 Acetaminophen 325 Mg Tablet PO 650 mg Q4H PRN Administration Mild Pain (1-3) or Fever Albuterol 2.5 mg 03/29/25 21:50 Albuterol Sulfate Neb 2.5 Mg/3 Ml Inh INHALATION Q4-6H PRN Shortness Of Breath Albuterol 2 puff 04/03/25 17:11 Albuterol Sulfate (*Sp) Aerosol 1 Puff INHALATION Q6HRT PRN Shortness Of Breath Or Wheezing Alteplase, Recombinant 2 mg 04/16/25 09:02 04/16/25 10:24 Alteplase 2 Mg Vial (Cathflo) IV PUSH 2 mg ONCE PRN Administration Line Occlusion Atorvastatin Calcium 40 mg 03/30/25 09:00 04/24/25 08:43 Atorvastatin 40 Mg Tablet PO 40 mg DAILY DANIELE Administration Duloxetine HCl 60 mg 04/14/25 09:00 04/24/25 08:44 Duloxetine Hcl 30 Mg Capsule.Dr PO 60 mg DAILY DANIELE Administration Folic Acid 1 mg 03/30/25 09:00 04/24/25 08:44 Folic Acid 1 Mg Tablet PO 1 mg DAILY DANIELE Administration Heparin Sodium (Beef Lung) 50 units 03/30/25 09:00 04/24/25 08:44 Heparin Flush 50 Units/5 Ml Syringe IV PUSH Not Given QAM DANIELE Heparin Sodium (Beef Lung) 50 units 03/29/25 23:50 Heparin Flush 50 Units/5 Ml Syringe IV PUSH PRN PRN after intermittent infusion Heparin Sodium (Beef Lung) 50 units 03/29/25 23:50 04/20/25 05:30 Heparin Flush 50 Units/5 Ml Syringe IV PUSH 50 units PRN PRN Administration after blood draws Heparin Sodium (Porcine) 500 units 03/29/25 23:50 04/11/25 23:05 Heparin Sodium Lock Flush 500 Units/5 Ml Syringe IV PUSH 500 units PRN PRN Administration see comments below Sodium Chloride 1,000 mls @ 125 mls/hr 04/20/25 13:25 04/24/25 17:14 Normal Saline Iv IV CONT 125 mls/hr .Q8H DANIELE Administration Piperacillin Sod/Tazobactam 100 mls @ 200 mls/hr 04/22/25 14:00 04/24/25 17:14 Sod 4.5 gm/ Sodium Chloride IVPB 04/27/25 23:59 200 mls/hr Q6HR DANIELE Administration Ketorolac Tromethamine 10 mg 04/20/25 10:08 04/23/25 08:19 Ketorolac 10 Mg Tablet PO 10 mg Q6H PRN Administration Pain Rated 4-6 Loratadine 10 mg 03/30/25 09:00 04/24/25 08:44 Loratadine 10 Mg Tablet PO 10 mg QAM DANIELE Administration Menthol/Methyl Salicylate 1 applic 04/06/25 02:01 04/19/25 23:09 Menthol 10% / Methyl Salicylate 15% 57 Gm Tube TOPICAL 1 applic BID PRN Administration Muscle/Joint Pain Metoprolol Tartrate 25 mg 04/11/25 21:00 04/24/25 08:44 Metoprolol Tartrate 25 Mg Tablet PO 25 mg Q12HR DANIELE Administration Midodrine 10 mg 04/03/25 23:20 04/24/25 17:14 Midodrine Hcl 10 Mg Tablet PO 10 mg TID DANIELE Administration Montelukast Sodium 10 mg 03/29/25 21:00 04/23/25 21:06 Montelukast Sodium 10 Mg Tablet PO 10 mg HS DANIELE Administration Ondansetron HCl 4 mg 04/20/25 10:08 Ondansetron Inj 4 Mg/2 Ml Vial IV PUSH Q4H PRN Nausea And Vomiting Oxycodone/Acetaminophen 1 tablet 04/22/25 18:33 04/24/25 13:09 Oxycodone/Acetaminophen (*Crx) 5-325 Mg Tablet PO 1 tablet Q6H PRN Administration Pain Rated 7-10 Pantoprazole Sodium 40 mg 04/07/25 21:00 04/24/25 08:44 Pantoprazole 40 Mg Tablet PO 40 mg Q12HR DANIELE Administration Polyethylene Glycol 17 gm 04/02/25 09:00 04/24/25 08:44 Polyethylene Glycol 3350 17 Gm Powd.Pack PO Not Given QAM DANIELE Fluticasone/Salmeterol 2 puff 03/29/25 20:00 04/24/25 09:25 Fluticasone/Salmeterol 45-21 Mcg Inhaler 1 Puff INHALATION Not Given Q12HRT DANIELE Senna 17.2 mg 03/30/25 09:00 04/02/25 08:36 Sennosides 8.6 Mg Tablet PO 17.2 mg On Hold: 04/02/25 08:45 BID DANIELE Administration Sodium Chloride 10 ml 03/30/25 06:00 04/24/25 13:10 Central Line Flush IV PUSH 10 ml Q8HR DANIELE Administration Radiology Results: ITS Impressions Head/Neck CTA 03/29/25 08:51 IMPRESSION: CTA NECK: 1. No ICA stenosis or other acute arterial abnormality. 2. Lytic bony metastatic disease C2, C5. 3. Lytic bony metastatic disease right scapula with large associated soft tissue component. CTA HEAD: 1. No large vessel arterial occlusive disease or other acute arterial abnormality. Brain MRI 03/30/25 15:18 IMPRESSION: 1. Scattered ossific white matter T2 hyperintensity consistent with chronic small vessel ischemic disease. No acute intracranial process. Venous Doppler Study 03/31/25 17:18 IMPRESSION: 1: No lower extremity deep venous thrombosis. Shoulder X-Ray 04/11/25 15:25 Impression: No acute fracture or malalignment. Chest X-Ray 04/22/25 13:14 Impression: Bilateral pneumonia. The findings appear slightly progressed compared to the previous study Head CT 04/23/25 14:10 Impression: 1.No acute intracranial abnormality. Chest/Abdomen/Pelvis CT 04/23/25 15:33 IMPRESSION: 1. [Multiple pulmonary nodules are noted in the lungs bilaterally measuring up to 12 mm. There is a enlarged precarinal lymph node measuring 16 mm. This may represent metastases. Multiple liver masses are noted suggestive of malignancy. Labs Labs: Laboratory Results - last 24 hr 04/24/25 04/24/25 04:53 06:08 WBC 20.6 H RBC 2.42 L Hgb 7.1 L Hct 22.8 L MCV 94.2 MCH 29.3 MCHC 31.1 L RDW 17.5 H Plt Count 445 H MPV 9.1 Sodium 131 L Potassium 3.2 L Chloride 108 H Carbon Dioxide 17 L Anion Gap 6 BUN 6 L Creatinine 0.73 Estim Creat Clear Calc 60 Estimated GFR > 60 Glucose 78 POC Capillary Glucose 103 Calcium 8.5 Magnesium 1.8
[2025-04-24] MEDS: ACETAMINOPHEN 325 MG TABLET 650 MG PO (17:38)
[2025-04-24] MEDS: POTASSIUM CHLORIDE 20 MEQ ER TABLET 40 MEQ PO (17:41)
[2025-04-24] MEDS: KETOROLAC 10 MG TABLET PO (19:47)
[2025-04-24] MEDS: MONTELUKAST SODIUM 10 MG TABLET PO (21:08)
[2025-04-25] VITALS (12 sets, daily range): BP systolic 131–146; BP diastolic 51–79; PULSE 78–87; RESP 17–20; TEMP 36.2–37.2; O2SAT 95–99
[2025-04-25] MEDS: CENTRAL LINE FLUSH 10 ML IV PUSH ×2 (00:39→06:34)
[2025-04-25] MEDS: PIPERACILLIN/TAZOBACTAM SOD 4.5 GM in SODIUM CHLORIDE 0.9% IV 100 ML 200 ML IVPB ×3 (00:39→12:09)
[2025-04-25] MEDS: ACETAMINOPHEN 325 MG TABLET 650 MG PO (01:57)
[2025-04-25] MEDS: SODIUM CHLORIDE 0.9% IV 1,000 ML 125 ML IV CONT ×2 (03:01→12:08)
[2025-04-25 04:55] LABS: Hematocrit 21.6 % (37.0-47.0); Immature Granulocyte Percent A 4.4 % (0-0.5); Lymphocytes Absolute Auto 0.29 K/mm3 (0.9-3.2); Mean Corpuscular HGB Conc 31.0 g/dl (32-36); Mean Corpuscular Hemoglobin 29.5 pg (26-34); Mean Corpuscular Volume 95.2 fl (80-100); Nucleated Red Blood Cells Absolute Auto 0.000 K/mm3 (0.0-0.012); Nucleated Red Blood Cells Perc 0.0 % (0.0-0.2); Platelet Count Result 389 k/mm3 (150-375); Red Blood Count 2.27 M/mm3 (4.2-5.4); White Blood Count 19.6 K/mm3 (4.5-10.0)
[2025-04-25 05:20] LABS: Alanine Aminotransferase 25 U/L (6-35); Albumin Level 2.1 g/dL (3.5-5.1); Alkaline Phosphatase 194 U/L (38-126); Anion Gap 5 mmol/L (4-12); Aspartate Amino Transferase 64 U/L (14-36); Bilirubin,Total 0.4 mg/dL (0.2-1.3); Blood Urea Nitrogen 6 mg/dL (7-17); Calcium 8.1 mg/dL (8.4-10.2); Carbon Dioxide 19 mmol/L (22-30); Chloride 109 mmol/L (98-107); Estimated CRCL calculation 73 ml/min; Estimated Glomerular Filt Rate > 60; Glucose 76 mg/dL (65-110); Hemoglobin 6.7 g/dL (12.0-15.0); Magnesium 1.6 mg/dL (1.6-2.3); Potassium 3.1 mmol/L (3.4-5.0); Sodium 133 mmol/L (137-145); Total Protein 5.1 g/dL (6.3-8.2)
[2025-04-25 05:23] LABS: Anisocytosis 1+
[2025-04-25 05:24] LABS: Crenated RBC Occasional; Schistocytes None Seen
[2025-04-25] MEDS: FLUTICASONE/SALMETEROL 45-21 MCG INHALER 1 PUFF 2 PUFF INHALATION ×2 (07:29→22:00)
[2025-04-25] MEDS: FOLIC ACID 1 MG TABLET PO (08:48)
[2025-04-25] MEDS: ATORVASTATIN 40 MG TABLET PO (08:48)
[2025-04-25] MEDS: LORATADINE 10 MG TABLET PO (08:48)
[2025-04-25] MEDS: METOPROLOL TARTRATE 25 MG TABLET PO ×2 (08:48→21:11)
[2025-04-25] MEDS: PANTOPRAZOLE 40 MG TABLET PO ×2 (08:48→21:11)
[2025-04-25] MEDS: MIDODRINE HCL 10 MG TABLET PO ×3 (08:49→17:20)
[2025-04-25] MEDS: POTASSIUM CHLORIDE 20 MEQ ER TABLET 40 MEQ PO (12:13)
[2025-04-25] MEDS: oxyCODONE/ACETAMINOPHEN (*CRX) 5-325 MG TABLET 1 TABLET PO ×2 (13:37→23:45)
[2025-04-25] MEDS: ONDANSETRON INJ 4 MG/2 ML VIAL IV PUSH (13:41)
--- NOTE | 2025-04-25 13:49 | P.PNIM_ITS ---
Progress Note: A&P Assessment and Plan (1) Patent foramen ovale with right to left shunt: Code(s): Q21.12 - Patent foramen ovale Status: Acute (2) Cardiomyopathy: Code(s): I42.9 - Cardiomyopathy, unspecified Status: Acute (3) Hypercalcemia of malignancy: Code(s): E83.52 - Hypercalcemia Status: Acute (4) Hypokalemia: Code(s): E87.6 - Hypokalemia Status: Acute (5) Urinary tract infection: Code(s): N39.0 - Urinary tract infection, site not specified Status: Acute (6) Anemia: Code(s): D64.9 - Anemia, unspecified Status: Acute (7) Ovarian cancer: Code(s): C56.9 - Malignant neoplasm of unspecified ovary Status: Acute (8) Altered mental status: Code(s): R41.82 - Altered mental status, unspecified Status: Acute Plan 59-year-old female with past medical history of stage IV ovarian cancer with metastasis presenting with worsening mental status. She had recent clearly experiencing weakness, reduced appetite, slurring speech These symptoms were a significant change from the patient's baseline just days prior. Patient has been treated with chemo, radiation in the past, currently on maintenance therapy with Keytruda. , CT head without contrast showed age indeterminate focus of left frontal subcortical ischemia, no hemorrhage, CTA head and neck last night showed no ICA stenosis or other acute arterial abnormality, lytic bony metastatic disease C2, C5, lytic bony metastatic disease right scapula with large associated soft tissue component, no large vessel arterial occlusion disease or other acute arterial abnormality. Blood workup showed calcium level of 14.4 . Received calcitonin, zoledronic acid hypercalcemia. 1. Altered mental status/acute encephalopathy: CT with age indeterminate focus of left frontal subcortical ischemia MRI brain unremarkable Echocardiogram with EF of 40-45% with regional wall motion abnormality, PFO Mental status has improved Neurology following 2. UTI: Completed course of ceftriaxone However UA positive for UTI again Restarted ceftriaxone 04/11/2025 Follow urine culture Febrile again 04/12/2025. Switch ceftriaxone to cefepime Follow urine culture Which came back as Enterococcus ampicillin resistant status post vancomycin IV Repeat urine culture 04/19Is negative. Patient currently on Zosyn # Vaginitis received a dose of fluconazole 04/13/2025 3. Hypercalcemia: Likely secondary to malignancy Received zoledronic acid, calcitonin, IV fluids Hypercalcemia has resolved 4. Anemia: Status post 2 units of PRBC H&H stable H&H dropped today to 7.6. No signs of bleeding. Hemoglobin down to 6.7. Transfuse 1 unit of PRBC. 5. History of metastatic ovarian cancer: MRI brain unremarkable Patient follows up with Oncology at [facility] 6.) Cardiomyopathy: Patent foramen ovale Echo showing EF 40-45% with regional wall motion abnormality and PFO with R-->L shunt Cardiology consulted. LE venous doppler negative for DVT so unlikely paradoxical CVA. Metoprolol tartrate started. Maxide stopped and losartan added Due to HoTN and anemia, Plavix stopped. Continue tele monitoring. Continue statin. Verapamil has been stopped Will need home O2 evaluation before discharge Currently on room air 7. History of hypertension: Continue with losartan, metoprolol Verapamil has been stopped #Lice in hair treated with permethrin # disposition to [facility] when bed available # pneumonia: ID on board CT chest abdomen pelvis performed which showed m ultiple pulmonary nodules noted in the lungs bilaterally measuring up to 12 mm. May represent metastatic disease. Multiple liver masses are also noted suggestive of malignancy. Otherwise lungs are clear. # depression # headache recent CT head was negative. Will further evaluate with MRI given history of metastatic ovarian cancer. She does have metastasis to her cervical spine 8. Code status: Full 9. DVT prophylaxis: SCDs 9. Disposition: Pending placement. Subjective Date/time seen: 04/25/25 13:49 Interval history: Complains of headache. tearful today. Labs reviewed. Review of Systems Review of Systems: All systems reviewed & are unremarkable except as noted in HPI and below Exam Narrative: Gen -no acute distress Chest -bilateral clear to auscultation CV - Regular rate and rhythm with S1-S2. Abd - soft, NT/ND with positive bowel sounds. Ext - no pedal edema Psych- alert, tearfull today and cooperative Skin - Warm and dry. Objective Data Vital Signs Vital Signs: Vital Signs - 24 hr 04/24/25 19:09 04/24/25 20:00 04/24/25 21:07 Temperature 97.9 F Pulse Rate 72 89 Respiratory Rate 20 Blood Pressure 122/50 L Pulse Oximetry 96 Oxygen Delivery Room Air Fraction of Inspired Oxygen 04/25/25 04:22 04/25/25 07:28 04/25/25 08:48 Temperature 97.1 F L Pulse Rate 86 86 Respiratory Rate 20 Blood Pressure 132/51 L Pulse Oximetry 96 96 Oxygen Delivery Room Air Fraction of Inspired Oxygen 21 Intake/Output Intake/Output: Intake & Output 04/22/25 04/23/25 04/24/25 04/25/25 23:59 23:59 23:59 23:59 Intake Total 3410 2640 2700 2800 Output Total 450 Balance 2960 2640 2700 2800 Meds/Results Medications: Active Medications Generic Name Dose Route Start Last Admin Trade Name Freq PRN Reason Stop Dose Admin Acetaminophen 650 mg 03/29/25 19:45 04/25/25 01:57 Acetaminophen 325 Mg Tablet PO 650 mg Q4H PRN Administration Mild Pain (1-3) or Fever Albuterol 2.5 mg 03/29/25 21:50 Albuterol Sulfate Neb 2.5 Mg/3 Ml Inh INHALATION Q4-6H PRN Shortness Of Breath Albuterol 2 puff 04/03/25 17:11 Albuterol Sulfate (*Sp) Aerosol 1 Puff INHALATION Q6HRT PRN Shortness Of Breath Or Wheezing Alteplase, Recombinant 2 mg 04/16/25 09:02 04/16/25 10:24 Alteplase 2 Mg Vial (Cathflo) IV PUSH 2 mg ONCE PRN Administration Line Occlusion Atorvastatin Calcium 40 mg 03/30/25 09:00 04/25/25 08:48 Atorvastatin 40 Mg Tablet PO 40 mg DAILY DANIELE Administration Duloxetine HCl 60 mg 04/14/25 09:00 04/25/25 08:48 Duloxetine Hcl 30 Mg Capsule.Dr PO 60 mg DAILY DANIELE Administration Folic Acid 1 mg 03/30/25 09:00 04/25/25 08:48 Folic Acid 1 Mg Tablet PO 1 mg DAILY DANIELE Administration Heparin Sodium (Beef Lung) 50 units 03/30/25 09:00 04/25/25 08:50 Heparin Flush 50 Units/5 Ml Syringe IV PUSH Not Given QAM DANIELE Heparin Sodium (Beef Lung) 50 units 03/29/25 23:50 Heparin Flush 50 Units/5 Ml Syringe IV PUSH PRN PRN after intermittent infusion Heparin Sodium (Beef Lung) 50 units 03/29/25 23:50 04/20/25 05:30 Heparin Flush 50 Units/5 Ml Syringe IV PUSH 50 units PRN PRN Administration after blood draws Heparin Sodium (Porcine) 500 units 03/29/25 23:50 04/11/25 23:05 Heparin Sodium Lock Flush 500 Units/5 Ml Syringe IV PUSH 500 units PRN PRN Administration see comments below Sodium Chloride 1,000 mls @ 125 mls/hr 04/20/25 13:25 04/25/25 12:08 Normal Saline Iv IV CONT 125 mls/hr .Q8H DANIELE Administration Piperacillin Sod/Tazobactam 100 mls @ 200 mls/hr 04/22/25 14:00 04/25/25 12:09 Sod 4.5 gm/ Sodium Chloride IVPB 04/27/25 23:59 200 mls/hr Q6HR DANIELE Administration Sodium Chloride 250 mls @ 30 mls/hr 04/25/25 05:45 Normal Saline Iv IV CONT 04/25/25 14:04 .Q8H20M STA Loratadine 10 mg 03/30/25 09:00 04/25/25 08:48 Loratadine 10 Mg Tablet PO 10 mg QAM DANIELE Administration Menthol/Methyl Salicylate 1 applic 04/06/25 02:01 04/19/25 23:09 Menthol 10% / Methyl Salicylate 15% 57 Gm Tube TOPICAL 1 applic BID PRN Administration Muscle/Joint Pain Metoprolol Tartrate 25 mg 04/11/25 21:00 04/25/25 08:48 Metoprolol Tartrate 25 Mg Tablet PO 25 mg Q12HR DANIELE Administration Midodrine 10 mg 04/03/25 23:20 04/25/25 12:13 Midodrine Hcl 10 Mg Tablet PO 10 mg TID DANIELE Administration Montelukast Sodium 10 mg 03/29/25 21:00 04/24/25 21:08 Montelukast Sodium 10 Mg Tablet PO 10 mg HS DANIELE Administration Ondansetron HCl 4 mg 04/20/25 10:08 04/25/25 13:41 Ondansetron Inj 4 Mg/2 Ml Vial IV PUSH 4 mg Q4H PRN Administration Nausea And Vomiting Oxycodone/Acetaminophen 1 tablet 04/22/25 18:33 04/25/25 13:37 Oxycodone/Acetaminophen (*Crx) 5-325 Mg Tablet PO 1 tablet Q6H PRN Administration Pain Rated 7-10 Pantoprazole Sodium 40 mg 04/07/25 21:00 04/25/25 08:48 Pantoprazole 40 Mg Tablet PO 40 mg Q12HR DANIELE Administration Polyethylene Glycol 17 gm 04/02/25 09:00 04/25/25 08:48 Polyethylene Glycol 3350 17 Gm Powd.Pack PO 17 gm QAM DANIELE Administration Fluticasone/Salmeterol 2 puff 03/29/25 20:00 04/25/25 07:29 Fluticasone/Salmeterol 45-21 Mcg Inhaler 1 Puff INHALATION 2 puff Q12HRT DANIELE Administration Senna 17.2 mg 03/30/25 09:00 04/02/25 08:36 Sennosides 8.6 Mg Tablet PO 17.2 mg On Hold: 04/02/25 08:45 BID DANIELE Administration Sodium Chloride 10 ml 03/30/25 06:00 04/25/25 06:34 Central Line Flush IV PUSH 10 ml Q8HR DANIELE Administration Radiology Results: ITS Impressions Head/Neck CTA 03/29/25 08:51 IMPRESSION: CTA NECK: 1. No ICA stenosis or other acute arterial abnormality. 2. Lytic bony metastatic disease C2, C5. 3. Lytic bony metastatic disease right scapula with large associated soft tissue component. CTA HEAD: 1. No large vessel arterial occlusive disease or other acute arterial abnormality. Brain MRI 03/30/25 15:18 IMPRESSION: 1. Scattered ossific white matter T2 hyperintensity consistent with chronic small vessel ischemic disease. No acute intracranial process. Venous Doppler Study 03/31/25 17:18 IMPRESSION: 1: No lower extremity deep venous thrombosis. Shoulder X-Ray 04/11/25 15:25 Impression: No acute fracture or malalignment. Chest X-Ray 04/22/25 13:14 Impression: Bilateral pneumonia. The findings appear slightly progressed compared to the previous study Head CT 04/23/25 14:10 Impression: 1.No acute intracranial abnormality. Chest/Abdomen/Pelvis CT 04/23/25 15:33 IMPRESSION: 1. [Multiple pulmonary nodules are noted in the lungs bilaterally measuring up to 12 mm. There is a enlarged precarinal lymph node measuring 16 mm. This may represent metastases. Multiple liver masses are noted suggestive of malignancy. Labs Labs: Laboratory Results - last 24 hr 04/25/25 04/25/25 04:45 06:52 WBC 19.6 H RBC 2.27 L Hgb 6.7 L* Hct 21.6 L MCV 95.2 MCH 29.5 MCHC 31.0 L RDW 17.8 H Plt Count 389 H MPV 9.0 Immature Gran % (Auto) 4.4 H Neut % (Auto) 87.4 H Lymph % (Auto) 1.5 L [place] % (Auto) 5.8 Eos % (Auto) 0.6 Baso % (Auto) 0.3 Lymph # (Auto) 0.29 L [place] # (Auto) 1.1 H Eos # (Auto) 0.1 Baso # (Auto) 0.1 Abs Immat Gran (auto) 0.87 H Absolute Neuts (auto) 17.2 H Absolute Nucleated RBC 0.000 Band Neutrophils % Not Reportable Nucleated RBC % 0.0 Platelet Estimate Adequate Anisocytosis 1+ Crenated Cell Occasional Schistocytes None seen Sodium 133 L Potassium 3.1 L Chloride 109 H Carbon Dioxide 19 L Anion Gap 5 BUN 6 L Creatinine 0.67 L Estim Creat Clear Calc 73 Estimated GFR > 60 Glucose 76 Calcium 8.1 L Magnesium 1.6 Total Bilirubin 0.4 AST 64 H ALT 25 Alkaline Phosphatase 194 H Total Protein 5.1 L Albumin 2.1 L Blood Type O Positive Antibody Screen Negative Crossmatch See Detail
[2025-04-25] MEDS: PIPERACILLIN/TAZOBACTAM SOD 4.5 GM in SODIUM CHLORIDE 0.9% IV 100 ML IVPB ×2 (17:13→23:49)
[2025-04-25] MEDS: MONTELUKAST SODIUM 10 MG TABLET PO (21:11)
[2025-04-26 04:29] VITALS: BP 126/72; PULSE 85; RESP 17; TEMP 36.4; O2SAT 97
[2025-04-26 05:14] LABS: Hematocrit 24.9 % (37.0-47.0); Hemoglobin 7.9 g/dL (12.0-15.0); Immature Granulocyte Percent A 4.5 % (0-0.5); Lymphocytes Absolute Auto 0.53 K/mm3 (0.9-3.2); Mean Corpuscular HGB Conc 31.7 g/dl (32-36); Mean Corpuscular Hemoglobin 29.5 pg (26-34); Mean Corpuscular Volume 92.9 fl (80-100); Nucleated Red Blood Cells Absolute Auto 0.000 K/mm3 (0.0-0.012); Nucleated Red Blood Cells Perc 0.0 % (0.0-0.2); Platelet Count Result 361 k/mm3 (150-375); Red Blood Count 2.68 M/mm3 (4.2-5.4); White Blood Count 21.0 K/mm3 (4.5-10.0)
[2025-04-26 05:34] LABS: Alanine Aminotransferase 20 U/L (6-35); Albumin Level 2.1 g/dL (3.5-5.1); Alkaline Phosphatase 197 U/L (38-126); Anion Gap 6 mmol/L (4-12); Aspartate Amino Transferase 24 U/L (14-36); Bilirubin,Total 0.5 mg/dL (0.2-1.3); Blood Urea Nitrogen 5 mg/dL (7-17); Calcium 8.2 mg/dL (8.4-10.2); Carbon Dioxide 18 mmol/L (22-30); Chloride 110 mmol/L (98-107); Estimated CRCL calculation 69 ml/min; Estimated Glomerular Filt Rate > 60; Glucose 70 mg/dL (65-110); Magnesium 1.5 mg/dL (1.6-2.3); Potassium 3.0 mmol/L (3.4-5.0); Sodium 134 mmol/L (137-145); Total Protein 5.1 g/dL (6.3-8.2)
[2025-04-26 05:43] LABS: Anisocytosis 1+; Hypochromasia 1+; Microcytosis 1+ (NORMAL)
[2025-04-26 05:44] LABS: Acanthocytes 1+; Schistocytes Rare
[2025-04-26] MEDS: oxyCODONE/ACETAMINOPHEN (*CRX) 5-325 MG TABLET 1 TABLET PO ×3 (06:04→21:07)
[2025-04-26] MEDS: PIPERACILLIN/TAZOBACTAM SOD 4.5 GM in SODIUM CHLORIDE 0.9% IV 100 ML IVPB (06:08)
[2025-04-26] MEDS: CENTRAL LINE FLUSH 10 ML IV PUSH ×3 (06:09→21:12)
[2025-04-26] MEDS: FLUTICASONE/SALMETEROL 45-21 MCG INHALER 1 PUFF 2 PUFF INHALATION ×2 (07:38→20:03)
[2025-04-26] MEDS: ALBUTEROL SULFATE (*SP) AEROSOL 1 PUFF 2 PUFF INHALATION (07:38)
[2025-04-26] MEDS: ATORVASTATIN 40 MG TABLET PO (08:50)
[2025-04-26] MEDS: SODIUM CHLORIDE 0.9% IV 1,000 ML 125 ML IV CONT ×2 (08:50→16:49)
[2025-04-26 08:51] VITALS: PULSE 85
[2025-04-26] MEDS: LORATADINE 10 MG TABLET PO (08:51)
[2025-04-26] MEDS: FOLIC ACID 1 MG TABLET PO (08:51)
[2025-04-26] MEDS: PANTOPRAZOLE 40 MG TABLET PO ×2 (08:51→21:07)
[2025-04-26] MEDS: MIDODRINE HCL 10 MG TABLET PO ×3 (08:51→16:51)
[2025-04-26] MEDS: METOPROLOL TARTRATE 25 MG TABLET PO ×2 (08:51→21:08)
[2025-04-26] MEDS: ACETAMINOPHEN 325 MG TABLET 650 MG PO (10:53)
[2025-04-26] MEDS: MAGNESIUM SULF 2 GM/WATER 50ML 2 GM/50 ML BAG IVPB (10:54)
[2025-04-26] MEDS: POTASSIUM CHLORIDE 20 MEQ ER TABLET 40 MEQ PO (10:54)
[2025-04-26] MEDS: PIPERACILLIN/TAZOBACTAM SOD 4.5 GM in SODIUM CHLORIDE 0.9% IV 100 ML 200 ML IVPB ×2 (12:53→17:00)
--- NOTE | 2025-04-26 13:01 | P.PNIM_ITS ---
Progress Note: A&P Assessment and Plan (1) Patent foramen ovale with right to left shunt: Code(s): Q21.12 - Patent foramen ovale Status: Acute (2) Cardiomyopathy: Code(s): I42.9 - Cardiomyopathy, unspecified Status: Acute (3) Hypercalcemia of malignancy: Code(s): E83.52 - Hypercalcemia Status: Acute (4) Hypokalemia: Code(s): E87.6 - Hypokalemia Status: Acute (5) Urinary tract infection: Code(s): N39.0 - Urinary tract infection, site not specified Status: Acute (6) Anemia: Code(s): D64.9 - Anemia, unspecified Status: Acute (7) Ovarian cancer: Code(s): C56.9 - Malignant neoplasm of unspecified ovary Status: Acute (8) Altered mental status: Code(s): R41.82 - Altered mental status, unspecified Status: Acute Plan 59-year-old female with past medical history of stage IV ovarian cancer with metastasis presenting with worsening mental status. She had recent clearly experiencing weakness, reduced appetite, slurring speech These symptoms were a significant change from the patient's baseline just days prior. Patient has been treated with chemo, radiation in the past, currently on maintenance therapy with Keytruda. , CT head without contrast showed age indeterminate focus of left frontal subcortical ischemia, no hemorrhage, CTA head and neck last night showed no ICA stenosis or other acute arterial abnormality, lytic bony metastatic disease C2, C5, lytic bony metastatic disease right scapula with large associated soft tissue component, no large vessel arterial occlusion disease or other acute arterial abnormality. Blood workup showed calcium level of 14.4 . Received calcitonin, zoledronic acid hypercalcemia. 1. Altered mental status/acute encephalopathy: CT with age indeterminate focus of left frontal subcortical ischemia MRI brain unremarkable Echocardiogram with EF of 40-45% with regional wall motion abnormality, PFO Mental status has improved Neurology following 2. UTI: Completed course of ceftriaxone However UA positive for UTI again Restarted ceftriaxone 04/11/2025 Follow urine culture Febrile again 04/12/2025. Switch ceftriaxone to cefepime Follow urine culture Which came back as Enterococcus ampicillin resistant status post vancomycin IV Repeat urine culture 04/19Is negative. Patient currently on Zosyn which concludes 04/27/2025 # Vaginitis received a dose of fluconazole 04/13/2025 3. Hypercalcemia: Likely secondary to malignancy Received zoledronic acid, calcitonin, IV fluids Hypercalcemia has resolved 4. Anemia: Status post 2 units of PRBC H&H stable H&H dropped today to 7.6. No signs of bleeding. Hemoglobin down to 6.7. Transfuse 1 unit of PRBC. 5. History of metastatic ovarian cancer: MRI brain unremarkable Patient follows up with Oncology at [facility] 6.) Cardiomyopathy: Patent foramen ovale Echo showing EF 40-45% with regional wall motion abnormality and PFO with R-->L shunt Cardiology consulted. LE venous doppler negative for DVT so unlikely paradoxical CVA. Metoprolol tartrate started. Maxide stopped and losartan added Due to HoTN and anemia, Plavix stopped. Continue tele monitoring. Continue statin. Verapamil has been stopped Will need home O2 evaluation before discharge Currently on room air 7. History of hypertension: Continue with losartan, metoprolol Verapamil has been stopped #Lice in hair treated with permethrin # disposition to [facility] when bed available # pneumonia: ID on board CT chest abdomen pelvis performed which showed multiple pulmonary nodules noted in the lungs bilaterally measuring up to 12 mm. May represent metastatic disease. Multiple liver masses are also noted suggestive of malignancy. Otherwise lungs are clear. # depression # headache recent CT head was negative. Will further evaluate with MRI given history of metastatic ovarian cancer. She does have metastasis to her cervical spine 8. Code status: Full 9. DVT prophylaxis: SCDs 9. Disposition: Pending placement. Subjective Date/time seen: 04/26/25 13:01 Interval history: no overnight events. denies any headache. no new complaints. Labs reviewed. Review of Systems Review of Systems: All systems reviewed & are unremarkable except as noted in HPI and below Exam Narrative: Gen -no acute distress Chest -bilateral clear to auscultation CV - Regular rate and rhythm with S1-S2. Abd - soft, NT/ND with positive bowel sounds. Ext - no pedal edema Psych- alert, tearfull today and cooperative Skin - Warm and dry. Objective Data Vital Signs Vital Signs: Vital Signs - 24 hr 04/25/25 14:00 04/25/25 14:56 04/25/25 15:11 Temperature 99 F 99.0 F 97.2 F L Pulse Rate 80 87 86 Respiratory Rate 20 18 18 Blood Pressure 146/79 H 137/70 144/63 H Pulse Oximetry 99 98 97 Oxygen Delivery 04/25/25 16:11 04/25/25 17:05 04/25/25 19:50 Temperature 97.4 F L 97.5 F L 97.7 F Pulse Rate 80 78 84 Respiratory Rate 18 18 17 Blood Pressure 131/68 136/60 136/65 Pulse Oximetry 97 98 97 Oxygen Delivery 04/25/25 20:00 04/25/25 21:11 04/25/25 22:00 Temperature Pulse Rate 80 Respiratory Rate Blood Pressure Pulse Oximetry 95 95 Oxygen Delivery Room Air Room Air 04/26/25 04:29 04/26/25 08:51 Temperature 97.6 F Pulse Rate 85 85 Respiratory Rate 17 Blood Pressure 126/72 Pulse Oximetry 97 Oxygen Delivery Intake/Output Intake/Output: Intake & Output 04/23/25 04/24/25 04/25/25 04/26/25 23:59 23:59 23:59 23:59 Intake Total 2640 2700 4590 420 Balance 2640 2700 4590 420 Meds/Results Medications: Active Medications Generic Name Dose Route Start Last Admin Trade Name Freq PRN Reason Stop Dose Admin Acetaminophen 650 mg 03/29/25 19:45 04/26/25 10:53 Acetaminophen 325 Mg Tablet PO 650 mg Q4H PRN Administration Mild Pain (1-3) or Fever Albuterol 2.5 mg 03/29/25 21:50 Albuterol Sulfate Neb 2.5 Mg/3 Ml Inh INHALATION Q4-6H PRN Shortness Of Breath Albuterol 2 puff 04/03/25 17:11 04/26/25 07:38 Albuterol Sulfate (*Sp) Aerosol 1 Puff INHALATION 2 puff Q6HRT PRN Administration Shortness Of Breath Or Wheezing Alteplase, Recombinant 2 mg 04/16/25 09:02 04/16/25 10:24 Alteplase 2 Mg Vial (Cathflo) IV PUSH 2 mg ONCE PRN Administration Line Occlusion Atorvastatin Calcium 40 mg 03/30/25 09:00 04/26/25 08:50 Atorvastatin 40 Mg Tablet PO 40 mg DAILY DANIELE Administration Duloxetine HCl 60 mg 04/14/25 09:00 04/26/25 08:51 Duloxetine Hcl 30 Mg Capsule.Dr PO 60 mg DAILY DANIELE Administration Folic Acid 1 mg 03/30/25 09:00 04/26/25 08:51 Folic Acid 1 Mg Tablet PO 1 mg DAILY DANIELE Administration Heparin Sodium (Beef Lung) 50 units 03/30/25 09:00 04/26/25 08:51 Heparin Flush 50 Units/5 Ml Syringe IV PUSH Not Given QAM DANIELE Heparin Sodium (Beef Lung) 50 units 03/29/25 23:50 Heparin Flush 50 Units/5 Ml Syringe IV PUSH PRN PRN after intermittent infusion Heparin Sodium (Beef Lung) 50 units 03/29/25 23:50 04/26/25 05:15 Heparin Flush 50 Units/5 Ml Syringe IV PUSH 50 units PRN PRN Administration after blood draws Heparin Sodium (Porcine) 500 units 03/29/25 23:50 04/11/25 23:05 Heparin Sodium Lock Flush 500 Units/5 Ml Syringe IV PUSH 500 units PRN PRN Administration see comments below Sodium Chloride 1,000 mls @ 125 mls/hr 04/20/25 13:25 04/26/25 08:50 Normal Saline Iv IV CONT 125 mls/hr .Q8H DANIELE Administration Piperacillin Sod/Tazobactam 100 mls @ 200 mls/hr 04/22/25 14:00 04/26/25 12:53 Sod 4.5 gm/ Sodium Chloride IVPB 04/27/25 23:59 200 mls/hr Q6HR DANIELE Administration Loratadine 10 mg 03/30/25 09:00 04/26/25 08:51 Loratadine 10 Mg Tablet PO 10 mg QAM DANIELE Administration Menthol/Methyl Salicylate 1 applic 04/06/25 02:01 04/19/25 23:09 Menthol 10% / Methyl Salicylate 15% 57 Gm Tube TOPICAL 1 applic BID PRN Administration Muscle/Joint Pain Metoprolol Tartrate 25 mg 04/11/25 21:00 04/26/25 08:51 Metoprolol Tartrate 25 Mg Tablet PO 25 mg Q12HR DANIELE Administration Midodrine 10 mg 04/03/25 23:20 04/26/25 12:51 Midodrine Hcl 10 Mg Tablet PO 10 mg TID DANIELE Administration Montelukast Sodium 10 mg 03/29/25 21:00 04/25/25 21:11 Montelukast Sodium 10 Mg Tablet PO 10 mg HS DANIELE Administration Ondansetron HCl 4 mg 04/20/25 10:08 04/25/25 13:41 Ondansetron Inj 4 Mg/2 Ml Vial IV PUSH 4 mg Q4H PRN Administration Nausea And Vomiting Oxycodone/Acetaminophen 1 tablet 04/22/25 18:33 04/26/25 12:51 Oxycodone/Acetaminophen (*Crx) 5-325 Mg Tablet PO 1 tablet Q6H PRN Administration Pain Rated 7-10 Pantoprazole Sodium 40 mg 04/07/25 21:00 04/26/25 08:51 Pantoprazole 40 Mg Tablet PO 40 mg Q12HR DANIELE Administration Polyethylene Glycol 17 gm 04/02/25 09:00 04/26/25 08:51 Polyethylene Glycol 3350 17 Gm Powd.Pack PO Not Given QAM DANIELE Fluticasone/Salmeterol 2 puff 03/29/25 20:00 04/26/25 07:38 Fluticasone/Salmeterol 45-21 Mcg Inhaler 1 Puff INHALATION 2 puff Q12HRT DANIELE Administration Senna 17.2 mg 03/30/25 09:00 04/02/25 08:36 Sennosides 8.6 Mg Tablet PO 17.2 mg On Hold: 04/02/25 08:45 BID DANIELE Administration Sodium Chloride 10 ml 03/30/25 06:00 04/26/25 06:09 Central Line Flush IV PUSH 10 ml Q8HR DANIELE Administration Radiology Results: ITS Impressions Head/Neck CTA 03/29/25 08:51 IMPRESSION: CTA NECK: 1. No ICA stenosis or other acute arterial abnormality. 2. Lytic bony metastatic disease C2, C5. 3. Lytic bony metastatic disease right scapula with large associated soft tissue component. CTA HEAD: 1. No large vessel arterial occlusive disease or other acute arterial abnormality. Venous Doppler Study 03/31/25 17:18 IMPRESSION: 1: No lower extremity deep venous thrombosis. Shoulder X-Ray 04/11/25 15:25 Impression: No acute fracture or malalignment. Chest X-Ray 04/22/25 13:14 Impression: Bilateral pneumonia. The findings appear slightly progressed compared to the previous study Head CT 04/23/25 14:10 Impression: 1.No acute intracranial abnormality. Chest/Abdomen/Pelvis CT 04/23/25 15:33 IMPRESSION: 1. [Multiple pulmonary nodules are noted in the lungs bilaterally measuring up to 12 mm. There is a enlarged precarinal lymph node measuring 16 mm. This may represent metastases. Multiple liver masses are noted suggestive of malignancy. Labs Labs: Laboratory Results - last 24 hr 04/25/25 04/26/25 06:52 05:02 WBC 21.0 H RBC 2.68 L Hgb 7.9 L Hct 24.9 L MCV 92.9 MCH 29.5 MCHC 31.7 L RDW 18.6 H Plt Count 361 MPV 8.8 Immature Gran % (Auto) 4.5 H Neut % (Auto) 86.3 H Lymph % (Auto) 2.5 L [place] % (Auto) 6.2 Eos % (Auto) 0.3 Baso % (Auto) 0.2 Lymph # (Auto) 0.53 L [place] # (Auto) 1.3 H Eos # (Auto) 0.1 Baso # (Auto) 0.1 Abs Immat Gran (auto) 0.95 H Absolute Neuts (auto) 18.1 H Absolute Nucleated RBC 0.000 Band Neutrophils % Not Reportable Nucleated RBC % 0.0 Platelet Estimate Adequate Hypochromasia 1+ Anisocytosis 1+ Microcytosis 1+ Acanthocytes (Spur) 1+ Schistocytes Rare Sodium 134 L Potassium 3.0 L Chloride 110 H Carbon Dioxide 18 L Anion Gap 6 BUN 5 L Creatinine 0.63 L Estim Creat Clear Calc 69 Estimated GFR > 60 Glucose 70 Calcium 8.2 L Magnesium 1.5 L Total Bilirubin 0.5 AST 24 ALT 20 Alkaline Phosphatase 197 H Total Protein 5.1 L Albumin 2.1 L Blood Type O Positive Antibody Screen Negative Crossmatch See Detail
--- NOTE | 2025-04-26 13:29 | PC.NURSE ---
framing machine tender called notified me that patient was able to tolerate most of the MRI test, but when she started to do the part that required contrast, the patient was no longer able to tolerate lying still & said she was done. Test was only partially completed.
[2025-04-26 14:00] VITALS: BP 108/58; PULSE 75; RESP 18; TEMP 36.4; O2SAT 98
[2025-04-26 19:43] VITALS: BP 141/82; PULSE 85; RESP 17; TEMP 36.9; O2SAT 99
[2025-04-26 20:00] VITALS: PULSE 89; RESP 17; O2SAT 99
[2025-04-26 21:08] VITALS: PULSE 89
[2025-04-26] MEDS: MONTELUKAST SODIUM 10 MG TABLET PO (21:08)
[2025-04-27] VITALS (9 sets, daily range): BP systolic 120–139; BP diastolic 62–114; PULSE 76–95; RESP 16–20; TEMP 36.5–36.8; O2SAT 98–99
[2025-04-27] MEDS: PIPERACILLIN/TAZOBACTAM SOD 4.5 GM in SODIUM CHLORIDE 0.9% IV 100 ML 200 ML IVPB ×4 (00:02→17:12)
[2025-04-27] MEDS: oxyCODONE/ACETAMINOPHEN (*CRX) 5-325 MG TABLET 1 TABLET PO ×3 (03:49→17:13)
[2025-04-27] MEDS: CENTRAL LINE FLUSH 10 ML IV PUSH ×3 (05:35→22:35)
[2025-04-27] MEDS: FLUTICASONE/SALMETEROL 45-21 MCG INHALER 1 PUFF 2 PUFF INHALATION ×2 (08:14→20:00)
[2025-04-27] MEDS: LORATADINE 10 MG TABLET PO (09:32)
[2025-04-27] MEDS: PANTOPRAZOLE 40 MG TABLET PO ×2 (09:32→20:35)
[2025-04-27] MEDS: FOLIC ACID 1 MG TABLET PO (09:32)
[2025-04-27] MEDS: MIDODRINE HCL 10 MG TABLET PO ×3 (09:32→17:12)
[2025-04-27] MEDS: ATORVASTATIN 40 MG TABLET PO (09:32)
[2025-04-27] MEDS: METOPROLOL TARTRATE 25 MG TABLET PO ×2 (09:32→20:33)
[2025-04-27] MEDS: SODIUM CHLORIDE 0.9% IV 1,000 ML 125 ML IV CONT (09:33)
[2025-04-27 09:44] LABS: Hematocrit 25.4 % (37.0-47.0); Hemoglobin 8.0 g/dL (12.0-15.0); Immature Granulocyte Percent A 2.9 % (0-0.5); Lymphocytes Absolute Auto 0.55 K/mm3 (0.9-3.2); Mean Corpuscular HGB Conc 31.5 g/dl (32-36); Mean Corpuscular Hemoglobin 28.9 pg (26-34); Mean Corpuscular Volume 91.7 fl (80-100); Nucleated Red Blood Cells Absolute Auto 0.000 K/mm3 (0.0-0.012); Nucleated Red Blood Cells Perc 0.0 % (0.0-0.2); Platelet Count Result 334 k/mm3 (150-375); Red Blood Count 2.77 M/mm3 (4.2-5.4); White Blood Count 21.1 K/mm3 (4.5-10.0)
[2025-04-27 10:07] LABS: Alanine Aminotransferase 20 U/L (6-35); Albumin Level 2.2 g/dL (3.5-5.1); Alkaline Phosphatase 276 U/L (38-126); Anion Gap 9 mmol/L (4-12); Aspartate Amino Transferase 35 U/L (14-36); Bilirubin,Total 0.5 mg/dL (0.2-1.3); Blood Urea Nitrogen 3 mg/dL (7-17); Calcium 8.1 mg/dL (8.4-10.2); Carbon Dioxide 17 mmol/L (22-30); Chloride 107 mmol/L (98-107); Estimated CRCL calculation 88 ml/min; Estimated Glomerular Filt Rate > 60; Glucose 72 mg/dL (65-110); Magnesium 2.0 mg/dL (1.6-2.3); Sodium 133 mmol/L (137-145); Total Protein 5.2 g/dL (6.3-8.2)
[2025-04-27 10:09] LABS: Potassium 2.8 mmol/L (3.4-5.0)
--- NOTE | 2025-04-27 10:52 | P.PNINF_ITS ---
Progress Note: A&P Assessment and Plan (1) Urinary tract infection: Code(s): N39.0 - Urinary tract infection, site not specified Status: Acute (2) Ovarian cancer: Code(s): C56.9 - Malignant neoplasm of unspecified ovary Status: Acute Plan # Leukocytosis--stable; no fever -- remains elevated but stable. -- she currently notes diarrhea over the last several days. Rule out C difficile colitis. -- leukemoid reaction related to underlying metastatic malignancy May be contributing. -- intermittent drop in hemoglobin may also contributing. # Enterococcus (amp resistant /vancomycin sensitive) complicated urinary tract infection. s/p vanc and augmentin. -- Repeat urine cx 04/19 neg #Pneumonia; MRSA nares neg -- on Zosyn through today. REC -- continue zosyn alone in case neurotoxicity from cefepime-->continue zosyn through 04/27 -- send stool sample for C difficile analysis and begin empiric p.o. vancomycin 125 mg q.i.d.. dw pharmacy And nursing staff Pt examined via telemedicine with HIPAA-protected audio-visual interface with pt at [facility] in [place], [place] and me in my office in [place]. Pt gave permission. Subjective Date/time seen: 04/27/25 10:52 Interval history: 04/27/2025: Afebrile and vital signs stable. She states she has been having diarrhea over the last several days. White blood cell count remains stable but elevated at 21.1. Hemoglobin decreased to 6.7 two days ago. MRI brain with stable mild nonspecific cerebral white matter disease and pontine disease which likely represents chronic small vessel ischemic disease . Review of Systems Review of Systems: reviewed. as per HPI All systems reviewed & are unremarkable except as noted in HPI and below Exam Narrative: No apparent distress and appears comfortable right PAC--no erythema Abdomen is nondistended and soft. She notes diarrhea over the last several days. Objective Data Vital Signs Vital Signs: Vital Signs - 24 hr 04/26/25 14:00 04/26/25 19:43 04/26/25 20:00 Temperature 97.6 F 98.5 F Pulse Rate 75 85 89 Respiratory Rate 18 17 17 Blood Pressure 108/58 L 141/82 H Pulse Oximetry 98 99 99 Oxygen Delivery Room Air Fraction of Inspired Oxygen 21 04/26/25 21:08 04/27/25 03:57 04/27/25 09:30 Temperature 98.1 F Pulse Rate 89 85 Respiratory Rate 16 Blood Pressure 137/71 Pulse Oximetry 99 Oxygen Delivery Room Air Fraction of Inspired Oxygen 04/27/25 09:32 Temperature Pulse Rate 85 Respiratory Rate Blood Pressure Pulse Oximetry Oxygen Delivery Fraction of Inspired Oxygen Intake/Output Intake/Output: Intake & Output 04/24/25 04/25/25 04/26/25 04/27/25 23:59 23:59 23:59 23:59 Intake Total 2700 4590 2187.9 1905 Balance 2700 4590 2187.9 1905 Meds/Results Medications: Active Medications Generic Name Dose Route Start Last Admin Trade Name Freq PRN Reason Stop Dose Admin Acetaminophen 650 mg 03/29/25 19:45 04/26/25 10:53 Acetaminophen 325 Mg Tablet PO 650 mg Q4H PRN Administration Mild Pain (1-3) or Fever Albuterol 2.5 mg 03/29/25 21:50 Albuterol Sulfate Neb 2.5 Mg/3 Ml Inh INHALATION Q4-6H PRN Shortness Of Breath Albuterol 2 puff 04/03/25 17:11 04/26/25 07:38 Albuterol Sulfate (*Sp) Aerosol 1 Puff INHALATION 2 puff Q6HRT PRN Administration Shortness Of Breath Or Wheezing Alteplase, Recombinant 2 mg 04/16/25 09:02 04/16/25 10:24 Alteplase 2 Mg Vial (Cathflo) IV PUSH 2 mg ONCE PRN Administration Line Occlusion Atorvastatin Calcium 40 mg 03/30/25 09:00 04/27/25 09:32 Atorvastatin 40 Mg Tablet PO 40 mg DAILY DANIELE Administration Duloxetine HCl 60 mg 04/14/25 09:00 04/27/25 09:32 Duloxetine Hcl 30 Mg Capsule.Dr PO 60 mg DAILY DANIELE Administration Folic Acid 1 mg 03/30/25 09:00 04/27/25 09:32 Folic Acid 1 Mg Tablet PO 1 mg DAILY DANIELE Administration Heparin Sodium (Beef Lung) 50 units 03/30/25 09:00 04/27/25 09:32 Heparin Flush 50 Units/5 Ml Syringe IV PUSH 50 units QAM DANIELE Administration Heparin Sodium (Beef Lung) 50 units 03/29/25 23:50 Heparin Flush 50 Units/5 Ml Syringe IV PUSH PRN PRN after intermittent infusion Heparin Sodium (Beef Lung) 50 units 03/29/25 23:50 04/26/25 05:15 Heparin Flush 50 Units/5 Ml Syringe IV PUSH 50 units PRN PRN Administration after blood draws Heparin Sodium (Porcine) 500 units 03/29/25 23:50 04/11/25 23:05 Heparin Sodium Lock Flush 500 Units/5 Ml Syringe IV PUSH 500 units PRN PRN Administration see comments below Sodium Chloride 1,000 mls @ 125 mls/hr 04/20/25 13:25 04/27/25 09:33 Normal Saline Iv IV CONT 125 mls/hr .Q8H DANIELE Administration Piperacillin Sod/Tazobactam 100 mls @ 200 mls/hr 04/22/25 14:00 04/27/25 05:34 Sod 4.5 gm/ Sodium Chloride IVPB 04/27/25 23:59 200 mls/hr Q6HR DANIELE Administration Potassium Chloride 40 meq/ 520 mls @ 130 mls/hr 04/27/25 10:28 Sodium Chloride IVPB 04/27/25 14:27 ONCE ONE Loratadine 10 mg 03/30/25 09:00 04/27/25 09:32 Loratadine 10 Mg Tablet PO 10 mg QAM DANIELE Administration Menthol/Methyl Salicylate 1 applic 04/06/25 02:01 04/19/25 23:09 Menthol 10% / Methyl Salicylate 15% 57 Gm Tube TOPICAL 1 applic BID PRN Administration Muscle/Joint Pain Metoprolol Tartrate 25 mg 04/11/25 21:00 04/27/25 09:32 Metoprolol Tartrate 25 Mg Tablet PO 25 mg Q12HR DANIELE Administration Midodrine 10 mg 04/03/25 23:20 04/27/25 09:32 Midodrine Hcl 10 Mg Tablet PO 10 mg TID DANIELE Administration Montelukast Sodium 10 mg 03/29/25 21:00 04/26/25 21:08 Montelukast Sodium 10 Mg Tablet PO 10 mg HS DANIELE Administration Ondansetron HCl 4 mg 04/20/25 10:08 04/25/25 13:41 Ondansetron Inj 4 Mg/2 Ml Vial IV PUSH 4 mg Q4H PRN Administration Nausea And Vomiting Oxycodone/Acetaminophen 1 tablet 04/22/25 18:33 04/27/25 09:32 Oxycodone/Acetaminophen (*Crx) 5-325 Mg Tablet PO 1 tablet Q6H PRN Administration Pain Rated 7-10 Pantoprazole Sodium 40 mg 04/07/25 21:00 04/27/25 09:32 Pantoprazole 40 Mg Tablet PO 40 mg Q12HR DANIELE Administration Polyethylene Glycol 17 gm 04/02/25 09:00 04/27/25 09:32 Polyethylene Glycol 3350 17 Gm Powd.Pack PO 17 gm QAM DANIELE Administration Fluticasone/Salmeterol 2 puff 03/29/25 20:00 04/27/25 08:14 Fluticasone/Salmeterol 45-21 Mcg Inhaler 1 Puff INHALATION 2 puff Q12HRT DANIELE Administration Senna 17.2 mg 03/30/25 09:00 04/02/25 08:36 Sennosides 8.6 Mg Tablet PO 17.2 mg On Hold: 04/02/25 08:45 BID DANIELE Administration Sodium Chloride 10 ml 03/30/25 06:00 04/27/25 05:35 Central Line Flush IV PUSH 10 ml Q8HR DANIELE Administration Radiology Results: ITS Impressions Head/Neck CTA 03/29/25 08:51 IMPRESSION: CTA NECK: 1. No ICA stenosis or other acute arterial abnormality. 2. Lytic bony metastatic disease C2, C5. 3. Lytic bony metastatic disease right scapula with large associated soft tissue component. CTA HEAD: 1. No large vessel arterial occlusive disease or other acute arterial abnormality. Venous Doppler Study 03/31/25 17:18 IMPRESSION: 1: No lower extremity deep venous thrombosis. Shoulder X-Ray 04/11/25 15:25 Impression: No acute fracture or malalignment. Chest X-Ray 04/22/25 13:14 Impression: Bilateral pneumonia. The findings appear slightly progressed compared to the previous study Head CT 04/23/25 14:10 Impression: 1.No acute intracranial abnormality. Chest/Abdomen/Pelvis CT 04/23/25 15:33 IMPRESSION: 1. [Multiple pulmonary nodules are noted in the lungs bilaterally measuring up to 12 mm. There is a enlarged precarinal lymph node measuring 16 mm. This may represent metastases. Multiple liver masses are noted suggestive of malignancy. Brain MRI 04/27/25 07:37 IMPRESSION: 1. Stable mild nonspecific cerebral white matter disease and pontine disease, which likely represents chronic small vessel ischemic disease. Labs Labs: Laboratory Results - last 24 hr 04/27/25 09:25 WBC 21.1 H RBC 2.77 L Hgb 8.0 L Hct 25.4 L MCV 91.7 MCH 28.9 MCHC 31.5 L RDW 18.5 H Plt Count 334 MPV 9.3 Immature Gran % (Auto) 2.9 H Neut % (Auto) 88.4 H Lymph % (Auto) 2.6 L [place] % (Auto) 5.7 Eos % (Auto) 0.2 Baso % (Auto) 0.2 Lymph # (Auto) 0.55 L [place] # (Auto) 1.2 H Eos # (Auto) 0.0 Baso # (Auto) 0.1 Abs Immat Gran (auto) 0.60 H Absolute Neuts (auto) 18.6 H Absolute Nucleated RBC 0.000 Nucleated RBC % 0.0 Sodium 133 L Potassium 2.8 L* Chloride 107 Carbon Dioxide 17 L Anion Gap 9 BUN 3 L Creatinine 0.55 L Estim Creat Clear Calc 88 Estimated GFR > 60 Glucose 72 Calcium 8.1 L Magnesium 2.0 Total Bilirubin 0.5 AST 35 ALT 20 Alkaline Phosphatase 276 H Total Protein 5.2 L Albumin 2.2 L
[2025-04-27] MEDS: POTASSIUM CHLORIDE INJ 40 MEQ in SODIUM CHLORIDE 0.9% IV 500 ML 130 MEQ IVPB (11:04)
[2025-04-27] MEDS: POTASSIUM CHLORIDE 20 MEQ ER TABLET 40 MEQ PO (11:04)
--- NOTE | 2025-04-27 11:18 | PCNFU ---
Nutrition Follow-Up Complete: Inadequate oral intake related to altered mental status as evidenced by report of poor intake 2 weeks PO intake >50% Goal: Pt current nutrition is Regular diet. Ensure Plus HP (350 kcal, 20 g protein each). Nutrition recommendation: No new recommendations. Continue current nutrition care plan and orders. Last recorded weight is 71.4 kg. Bowel Motility: +1 04/27/25 Labs Reviewed: Hgb 8.0, Hct 25.4, Alb 2.2, Na 133, K+ 2.8, BUN 3, Cre 0.55 Meds Noted: Folic, protonix, senna, miralax Skin: WNL Additional Notes: Appetite remains poor. 25% breakfast. Mostly 0-10% last 48 hours. Supplements are on board. Awaiting placement to SNF Monitoring intakes, weights, labs, supplement tolerance, feeding ability, plan of care Follow up in 3 days
--- NOTE | 2025-04-27 15:37 | PM.IMPN ---
Progress Note: A&P Assessment and Plan (1) Patent foramen ovale with right to left shunt: Code(s): Q21.12 - Patent foramen ovale Status: Acute (2) Cardiomyopathy: Code(s): I42.9 - Cardiomyopathy, unspecified Status: Acute (3) Hypercalcemia of malignancy: Code(s): E83.52 - Hypercalcemia Status: Acute (4) Hypokalemia: Code(s): E87.6 - Hypokalemia Status: Acute (5) Urinary tract infection: Code(s): N39.0 - Urinary tract infection, site not specified Status: Acute (6) Anemia: Code(s): D64.9 - Anemia, unspecified Status: Acute (7) Ovarian cancer: Code(s): C56.9 - Malignant neoplasm of unspecified ovary Status: Acute (8) Altered mental status: Code(s): R41.82 - Altered mental status, unspecified Status: Acute Plan 59-year-old female with past medical history of stage IV ovarian cancer with metastasis presenting with worsening mental status. She had recent clearly experiencing weakness, reduced appetite, slurring speech These symptoms were a significant change from the patient's baseline just days prior. Patient has been treated with chemo, radiation in the past, currently on maintenance therapy with Keytruda. , CT head without contrast showed age indeterminate focus of left frontal subcortical ischemia, no hemorrhage, CTA head and neck last night showed no ICA stenosis or other acute arterial abnormality, lytic bony metastatic disease C2, C5, lytic bony metastatic disease right scapula with large associated soft tissue component, no large vessel arterial occlusion disease or other acute arterial abnormality. Blood workup showed calcium level of 14.4 . Received calcitonin, zoledronic acid hypercalcemia. 1. Altered mental status/acute encephalopathy: CT with age indeterminate focus of left frontal subcortical ischemia MRI brain unremarkable Echocardiogram with EF of 40-45% with regional wall motion abnormality, PFO Mental status has improved Neurology following 2. UTI: Completed course of ceftriaxone However UA positive for UTI again Restarted ceftriaxone 04/11/2025 Follow urine culture Febrile again 04/12/2025. Switch ceftriaxone to cefepime Follow urine culture Which came back as Enterococcus ampicillin resistant status post vancomycin IV Repeat urine culture 04/19Is negative. Patient currently on Zosyn which concludes 04/27/2025 Leukocytosis still persists. Could be related to underlying metastatic ovarian cancer # Vaginitis received a dose of fluconazole 04/13/2025 3. Hypercalcemia: Likely secondary to malignancy Received zoledronic acid, calcitonin, IV fluids Hypercalcemia has resolved 4. Anemia: Status post 2 units of PRBC H&H stable H&H dropped today to 7.6. No signs of bleeding. Hemoglobin down to 6.7. Transfuse 1 unit of PRBC. 5. History of metastatic ovarian cancer: MRI brain unremarkable Patient follows up with Oncology at [facility] Consult oncology here 6.) Cardiomyopathy: Patent foramen ovale Echo showing EF 40-45% with regional wall motion abnormality and PFO with R-->L shunt Cardiology consulted. LE venous doppler negative for DVT so unlikely paradoxical CVA. Metoprolol tartrate started. Maxide stopped and losartan added Due to HoTN and anemia, Plavix stopped. Continue tele monitoring. Continue statin. Verapamil has been stopped Will need home O2 evaluation before discharge Currently on room air 7. History of hypertension: Continue with losartan, metoprolol Verapamil has been stopped #Lice in hair treated with permethrin # disposition to [place] rehab when bed available # pneumonia: ID on board CT chest abdomen pelvis performed which showed multiple pulmonary nodules noted in the lungs bilaterally measuring up to 12 mm. May represent metastatic disease. Multiple liver masses are also noted suggestive of malignancy. Otherwise lungs are clear. # depression # headache recent CT head was negative. Will further evaluate with MRI given history of metastatic ovarian cancer. She does have metastasis to her cervical spine 8. Code status: Full 9. DVT prophylaxis: SCDs 9. Disposition: Pending placement. Subjective Date/time seen: 04/27/25 15:37 Interval history: no overnight events. Feels okay denies any diarrhea or pain anywhere. Labs reviewed. Review of Systems Review of Systems: All systems reviewed & are unremarkable except as noted in HPI and below Exam Narrative: Gen -no acute distress Chest -bilateral clear to auscultation CV - Regular rate and rhythm with S1-S2. Abd - soft, NT/ND with positive bowel sounds. Ext - no pedal edema Psych- alert, tearfull today and cooperative Skin - Warm and dry. Objective Data Vital Signs Vital Signs: Vital Signs - 24 hr 04/26/25 19:43 04/26/25 20:00 04/26/25 21:08 Temperature 98.5 F Pulse Rate 85 89 89 Respiratory Rate 17 17 Blood Pressure 141/82 H Pulse Oximetry 99 99 Oxygen Delivery Room Air Fraction of Inspired Oxygen 21 04/27/25 03:57 04/27/25 08:00 04/27/25 09:30 Temperature 98.1 F Pulse Rate 85 Respiratory Rate 16 Blood Pressure 137/71 139/114 H Pulse Oximetry 99 Oxygen Delivery Room Air Fraction of Inspired Oxygen 04/27/25 09:32 04/27/25 10:42 04/27/25 12:12 Temperature Pulse Rate 85 Respiratory Rate Blood Pressure Pulse Oximetry Oxygen Delivery Room Air Room Air Fraction of Inspired Oxygen 04/27/25 14:00 Temperature 97.7 F Pulse Rate 87 Respiratory Rate 17 Blood Pressure 120/62 Pulse Oximetry 98 Oxygen Delivery Fraction of Inspired Oxygen Intake/Output Intake/Output: Intake & Output 04/24/25 04/25/25 04/26/25 04/27/25 23:59 23:59 23:59 23:59 Intake Total 2700 4590 2187.9 2551.7 Balance 2700 4590 2187.9 2551.7 Meds/Results Medications: Active Medications Generic Name Dose Route Start Last Admin Trade Name Freq PRN Reason Stop Dose Admin Acetaminophen 650 mg 03/29/25 19:45 04/26/25 10:53 Acetaminophen 325 Mg Tablet PO 650 mg Q4H PRN Administration Mild Pain (1-3) or Fever Albuterol 2.5 mg 03/29/25 21:50 Albuterol Sulfate Neb 2.5 Mg/3 Ml Inh INHALATION Q4-6H PRN Shortness Of Breath Albuterol 2 puff 04/03/25 17:11 04/26/25 07:38 Albuterol Sulfate (*Sp) Aerosol 1 Puff INHALATION 2 puff Q6HRT PRN Administration Shortness Of Breath Or Wheezing Alteplase, Recombinant 2 mg 04/16/25 09:02 04/16/25 10:24 Alteplase 2 Mg Vial (Cathflo) IV PUSH 2 mg ONCE PRN Administration Line Occlusion Atorvastatin Calcium 40 mg 03/30/25 09:00 04/27/25 09:32 Atorvastatin 40 Mg Tablet PO 40 mg DAILY DANIELE Administration Duloxetine HCl 60 mg 04/14/25 09:00 04/27/25 09:32 Duloxetine Hcl 30 Mg Capsule.Dr PO 60 mg DAILY DANIELE Administration Folic Acid 1 mg 03/30/25 09:00 04/27/25 09:32 Folic Acid 1 Mg Tablet PO 1 mg DAILY DANIELE Administration Heparin Sodium (Beef Lung) 50 units 03/30/25 09:00 04/27/25 09:32 Heparin Flush 50 Units/5 Ml Syringe IV PUSH 50 units QAM DANIELE Administration Heparin Sodium (Beef Lung) 50 units 03/29/25 23:50 Heparin Flush 50 Units/5 Ml Syringe IV PUSH PRN PRN after intermittent infusion Heparin Sodium (Beef Lung) 50 units 03/29/25 23:50 04/26/25 05:15 Heparin Flush 50 Units/5 Ml Syringe IV PUSH 50 units PRN PRN Administration after blood draws Heparin Sodium (Porcine) 500 units 03/29/25 23:50 04/11/25 23:05 Heparin Sodium Lock Flush 500 Units/5 Ml Syringe IV PUSH 500 units PRN PRN Administration see comments below Sodium Chloride 1,000 mls @ 125 mls/hr 04/20/25 13:25 04/27/25 11:05 Normal Saline Iv IV CONT 0 mls/hr .Q8H DANIELE Infusion Piperacillin Sod/Tazobactam 100 mls @ 200 mls/hr 04/22/25 14:00 04/27/25 14:02 Sod 4.5 gm/ Sodium Chloride IVPB 04/27/25 23:59 200 mls/hr Q6HR DANIELE Administration Loratadine 10 mg 03/30/25 09:00 04/27/25 09:32 Loratadine 10 Mg Tablet PO 10 mg QAM DANIELE Administration Menthol/Methyl Salicylate 1 applic 04/06/25 02:01 04/19/25 23:09 Menthol 10% / Methyl Salicylate 15% 57 Gm Tube TOPICAL 1 applic BID PRN Administration Muscle/Joint Pain Metoprolol Tartrate 25 mg 04/11/25 21:00 04/27/25 09:32 Metoprolol Tartrate 25 Mg Tablet PO 25 mg Q12HR DANIELE Administration Midodrine 10 mg 04/03/25 23:20 04/27/25 14:02 Midodrine Hcl 10 Mg Tablet PO 10 mg TID DANIELE Administration Montelukast Sodium 10 mg 03/29/25 21:00 04/26/25 21:08 Montelukast Sodium 10 Mg Tablet PO 10 mg HS DANIELE Administration Ondansetron HCl 4 mg 04/20/25 10:08 04/25/25 13:41 Ondansetron Inj 4 Mg/2 Ml Vial IV PUSH 4 mg Q4H PRN Administration Nausea And Vomiting Oxycodone/Acetaminophen 1 tablet 04/22/25 18:33 04/27/25 09:32 Oxycodone/Acetaminophen (*Crx) 5-325 Mg Tablet PO 1 tablet Q6H PRN Administration Pain Rated 7-10 Pantoprazole Sodium 40 mg 04/07/25 21:00 04/27/25 09:32 Pantoprazole 40 Mg Tablet PO 40 mg Q12HR DANIELE Administration Polyethylene Glycol 17 gm 04/02/25 09:00 04/27/25 09:32 Polyethylene Glycol 3350 17 Gm Powd.Pack PO 17 gm QAM DANIELE Administration Fluticasone/Salmeterol 2 puff 03/29/25 20:00 04/27/25 08:14 Fluticasone/Salmeterol 45-21 Mcg Inhaler 1 Puff INHALATION 2 puff Q12HRT DANIELE Administration Senna 17.2 mg 03/30/25 09:00 04/02/25 08:36 Sennosides 8.6 Mg Tablet PO 17.2 mg On Hold: 04/02/25 08:45 BID DANIELE Administration Sodium Chloride 10 ml 03/30/25 06:00 04/27/25 14:02 Central Line Flush IV PUSH 10 ml Q8HR DANIELE Administration Vancomycin HCl 125 mg 04/27/25 18:00 Vancomycin Hcl 125 Mg Oral Capsule PO 05/07/25 17:59 Q6HR [facility] Radiology Results: ITS Impressions Head/Neck CTA 03/29/25 08:51 IMPRESSION: CTA NECK: 1. No ICA stenosis or other acute arterial abnormality. 2. Lytic bony metastatic disease C2, C5. 3. Lytic bony metastatic disease right scapula with large associated soft tissue component. CTA HEAD: 1. No large vessel arterial occlusive disease or other acute arterial abnormality. Venous Doppler Study 03/31/25 17:18 IMPRESSION: 1: No lower extremity deep venous thrombosis. Shoulder X-Ray 04/11/25 15:25 Impression: No acute fracture or malalignment. Chest X-Ray 04/22/25 13:14 Impression: Bilateral pneumonia. The findings appear slightly progressed compared to the previous study Head CT 04/23/25 14:10 Impression: 1.No acute intracranial abnormality. Chest/Abdomen/Pelvis CT 04/23/25 15:33 IMPRESSION: 1. [Multiple pulmonary nodules are noted in the lungs bilaterally measuring up to 12 mm. There is a enlarged precarinal lymph node measuring 16 mm. This may represent metastases. Multiple liver masses are noted suggestive of malignancy. Brain MRI 04/27/25 07:37 IMPRESSION: 1. Stable mild nonspecific cerebral white matter disease and pontine disease, which likely represents chronic small vessel ischemic disease. Labs Labs: Laboratory Results - last 24 hr 04/27/25 09:25 WBC 21.1 H RBC 2.77 L Hgb 8.0 L Hct 25.4 L MCV 91.7 MCH 28.9 MCHC 31.5 L RDW 18.5 H Plt Count 334 MPV 9.3 Immature Gran % (Auto) 2.9 H Neut % (Auto) 88.4 H Lymph % (Auto) 2.6 L [place] % (Auto) 5.7 Eos % (Auto) 0.2 Baso % (Auto) 0.2 Lymph # (Auto) 0.55 L [place] # (Auto) 1.2 H Eos # (Auto) 0.0 Baso # (Auto) 0.1 Abs Immat Gran (auto) 0.60 H Absolute Neuts (auto) 18.6 H Absolute Nucleated RBC 0.000 Nucleated RBC % 0.0 Sodium 133 L Potassium 2.8 L* Chloride 107 Carbon Dioxide 17 L Anion Gap 9 BUN 3 L Creatinine 0.55 L Estim Creat Clear Calc 88 Estimated GFR > 60 Glucose 72 Calcium 8.1 L Magnesium 2.0 Total Bilirubin 0.5 AST 35 ALT 20 Alkaline Phosphatase 276 H Total Protein 5.2 L Albumin 2.2 L
[2025-04-27 15:56] LABS: Toxigenic C. Diff NEGATIVE (NEGATIVE)
[2025-04-27] MEDS: VANCOMYCIN HCL 125 MG ORAL CAPSULE PO (17:12)
--- NOTE | 2025-04-27 18:42 | WPDONCCN ---
Assessment and Plan Assessment and plan (1) Ovarian cancer: Code(s): C56.9 - Malignant neoplasm of unspecified ovary Status: Acute Assessment and Plan: Patient was diagnosed with stage IV ovarian cancer. Patient admitted to hospital with mental status changes and generalized weakness. She was diagnosed with UTI. She is a poor historian. According the patient she received radiation therapy treatment and chemotherapy at the time of diagnosis in 2011. Imaging studies noted to in consistent with lung and liver metastasis. Brain MRI showed no evidence of metastatic disease. I will check CA 125. She will need to follow-up with oncologist at [facility] in [place] after the discharge for further management. (2) Anemia: Code(s): D64.9 - Anemia, unspecified Status: Acute Assessment and Plan: Likely secondary to malignancy and infection. We will check iron studies and vitamin B12 level as well. Transfuse as needed. HPI Data of Consult Date/Time: 04/27/25 18:42 Requesting Physician: Olimpia Velasquez MD Primary Care Provider: Elyse Pinto, [employer] Consult Narrative Narrative: Iliana Montero is a 59 year old female with history of stage IV ovarian cancer diagnosed in 2011 came into the hospital with mental status changes. He was also complaining of generalized weakness. Patient is a poor historian. According the patient she received radiation therapy treatment and then 3 treatments with chemotherapy/immunotherapy. CT scan had showed age indeterminate focus of the left frontal subcortical ischemia without hemorrhage. 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 CT chest abdomen pelvis showed multiple pulmonary nodules and liver masses. There was an MRI done today showed stable mild nonspecific cerebral white matter disease with no evidence of metastatic disease. Patient was diagnosed with UTI as well. He was found to be anemic with hemoglobin of 6.7. Denies any other complaints. Review of Systems Review of Systems: Twelve point review of system was reviewed [facility] Past Medical History Medical History (Updated 04/06/25 @ 13:01 by Александр Murray MD) Hypertension Benign breast lumps Surgical History Surgical History H/O: hysterectomy Family History Family History Sibling Diabetes mellitus Mother Breast cancer in female Daughter Hypertension Other Unknown family medical history Social History Social History Smoking packs per day: 1 Smoking cigarettes per day: 20.0 Years smoked: 30 Smoking pack-years: 30.00 Smoking status: Former smoker Tobacco type: cigarettes Smokeless tobacco user: other Second hand tobacco smoke exposure: No Smoking end date: 07/09/15 Additional smoking assessment comments: Smokes marijuana and chews nicotine gum Alcohol intake: former Drinks per week: 0 Substance use: current Substance use type: marijuana Last use: a week ago Lack of Transportation: YES Lack of Food: Never True Current Housing: I Have Housing Concerned About Future Housing: No Difficulty Paying Gas/Electric Bills: No Difficulty Paying for Meds: No Currently Unemployed: No Education: High School Diploma/GED Difficulty w/ Childcare or Family Care: No Living arrangements: with family Occupation/Education: other Gender identity (if verbalized by the patient): Female Spiritual care concerns: No Meds Home Medications and Allergies Home Medications ?Medication ?Instructions ?Recorded ?Confirmed ?Type inhalational spacing device #1 ea 01/27/20 03/29/25 Rx (OptiChamber Amber VHC spacer) Symbicort 80 mcg-4.5 mcg/actuation 2 puff inhalation Q12H #10.2 grams 08/04/21 03/29/25 Rx HFA aerosol inhaler (budesonide-formoterol) albuterol sulfate 90 mcg/actuation 2 inh inhalation Q6H PRN shortness 11/08/21 03/29/25 Rx aerosol inhaler of breath or wheezing #1 ea cholecalciferol (vitamin D3) 125 125 mcg PO DAILY 11/08/21 03/29/25 History mcg (5,000 unit) capsule clonazepam 1 mg tablet 1 mg PO TID 11/08/21 03/29/25 History triamterene 37.5 1 cap PO DAILY 11/08/21 03/29/25 History mg-hydrochlorothiazide 25 mg capsule verapamil 180 mg 24 hr 180 mg PO DAILY 11/08/21 03/29/25 History capsule,extended release albuterol sulfate 2.5 mg/3 mL See Rx Instructions .Route 07/31/22 03/29/25 Rx (0.083 %) solution for nebulization .COMPLEX #180 mL atorvastatin 40 mg tablet 40 mg PO DAILY 11/01/22 03/29/25 History duloxetine 30 mg capsule,delayed 30 mg PO DAILY 03/29/25 03/29/25 History release folic acid 1 mg tablet 1 mg PO DAILY 03/29/25 03/29/25 History loratadine 10 mg capsule 10 mg PO Q24H 03/29/25 03/29/25 History montelukast 10 mg tablet 10 mg PO QPM 03/29/25 03/29/25 History ondansetron HCl 8 mg tablet 8 mg PO Q12H PRN nausea and 03/29/25 03/29/25 History vomiting sennosides 8.6 mg capsule (senna) 17.2 mg PO BID 03/29/25 03/29/25 History Allergies Allergy/AdvReac Type Severity Reaction Status Date / Time mushroom Allergy Severe Anaphylaxis Verified 03/29/25 22:16 varenicline (From Chantix) Allergy Severe Depression Verified 03/29/25 22:16 bupropion (From Wellbutrin) AdvReac Severe Depression Verified 03/29/25 22:16 Vital Signs Vital Signs - 24 hr 04/26/25 19:43 04/26/25 20:00 04/26/25 21:08 Temperature 36.9 C Pulse Rate 85 89 89 Respiratory Rate 17 17 Blood Pressure 141/82 H Pulse Oximetry 99 99 Oxygen Delivery Room Air Fraction of Inspired Oxygen 21 04/27/25 03:57 04/27/25 09:30 04/27/25 09:32 Temperature 36.7 C Pulse Rate 85 85 Respiratory Rate 16 Blood Pressure 137/71 Pulse Oximetry 99 Oxygen Delivery Room Air Fraction of Inspired Oxygen 04/27/25 10:42 04/27/25 12:12 04/27/25 14:00 Temperature 36.5 C Pulse Rate 87 Respiratory Rate 17 Blood Pressure 120/62 Pulse Oximetry 98 Oxygen Delivery Room Air Room Air Fraction of Inspired Oxygen 04/27/25 14:42 04/27/25 14:45 04/27/25 14:48 Temperature Pulse Rate 88 76 Respiratory Rate Blood Pressure 138/71 132/74 139/114 H Pulse Oximetry Oxygen Delivery Fraction of Inspired Oxygen Exam Narrative: Lungs are clear to auscultation bilaterally Cardiovascular regular rate rhythm no murmurs Abdomen soft nontender nondistended Extremities no edema Results Labs 04/27/25 09:25 04/27/25 09:25 Labs: Short CBC 04/27/25 Range/Units 09:25 WBC 21.1 H (4.5-10.0) K/mm3 Hgb 8.0 L (12.0-15.0) g/dL Hct 25.4 L (37.0-47.0) % Plt Count 334 (150-375) k/mm3 BMP 04/27/25 09:25 Sodium 133 L Potassium 2.8 L* Chloride 107 Carbon Dioxide 17 L BUN 3 L Creatinine 0.55 L Glucose 72 Calcium 8.1 L Liver Function 04/27/25 Range/Units 09:25 Total Bilirubin 0.5 (0.2-1.3) mg/dL AST 35 (14-36) U/L ALT 20 (6-35) U/L Alkaline Phosphatase 276 H (38-126) U/L Albumin 2.2 L (3.5-5.1) g/dL
[2025-04-27] MEDS: MONTELUKAST SODIUM 10 MG TABLET PO (20:35)
[2025-04-28] VITALS (14 sets, daily range): BP systolic 137–152; BP diastolic 74–92; PULSE 84–116; RESP 15–24; TEMP 36.4–37.1; O2SAT 95–97
[2025-04-28] MEDS: VANCOMYCIN HCL 125 MG ORAL CAPSULE PO ×3 (01:03→12:25)
[2025-04-28] MEDS: oxyCODONE/ACETAMINOPHEN (*CRX) 5-325 MG TABLET 1 TABLET PO ×3 (01:58→21:47)
[2025-04-28 05:33] LABS: Hematocrit 23.9 % (37.0-47.0); Hemoglobin 7.5 g/dL (12.0-15.0); Mean Corpuscular HGB Conc 31.4 g/dl (32-36); Mean Corpuscular Hemoglobin 29.1 pg (26-34); Mean Corpuscular Volume 92.6 fl (80-100); Platelet Count Result 326 k/mm3 (150-375); Red Blood Count 2.58 M/mm3 (4.2-5.4); White Blood Count 20.1 K/mm3 (4.5-10.0)
[2025-04-28 05:59] LABS: Iron 12 ug/dL (37-170)
[2025-04-28 06:00] LABS: Alanine Aminotransferase 19 U/L (6-35); Albumin Level 2.1 g/dL (3.5-5.1); Alkaline Phosphatase 279 U/L (38-126); Anion Gap 6 mmol/L (4-12); Aspartate Amino Transferase 36 U/L (14-36); Bilirubin,Total 0.5 mg/dL (0.2-1.3); Blood Urea Nitrogen 2 mg/dL (7-17); Calcium 8.1 mg/dL (8.4-10.2); Carbon Dioxide 19 mmol/L (22-30); Chloride 108 mmol/L (98-107); Estimated CRCL calculation 91 ml/min; Estimated Glomerular Filt Rate > 60; Glucose 82 mg/dL (65-110); Magnesium 1.8 mg/dL (1.6-2.3); Potassium 2.9 mmol/L (3.4-5.0); Sodium 133 mmol/L (137-145); Total Protein 5.1 g/dL (6.3-8.2)
[2025-04-28 06:26] LABS: Percent Iron Saturation 15 % (20-50)
[2025-04-28 06:35] LABS: Anisocytosis 1+; Band Neutrophils Percent 10 % (0-6); Burr Cells 1+; Eosinophils Absolute Manual 0.60 K/mm3 (0.02-0.50); Eosinophils Percent Manual 3 % (0-4); Hypochromasia 1+; Lymphocytes Absolute Manual 0.40 K/mm3 (1.1-4.5); Lymphocytes Percent Manual 2 % (18-44); Monocytes Absolute Manual 0.40 K/mm3 (0.1-0.90); Monocytes Percent Manual 2 % (3-9); Neutrophils Absolute Manual 18.69 K/mm3 (1.3-6.7); Neutrophils Percent Manual 83 % (46-73); Total Cells Counted 100
[2025-04-28 06:36] LABS: Acanthocytes 1+; Schistocytes Occasional; Tear Drop Cells Occasional
[2025-04-28 06:43] LABS: Ferritin 797.00 ng/mL (11.1-264)
[2025-04-28] MEDS: SODIUM CHLORIDE 0.9% IV 1,000 ML 125 ML IV CONT (07:00)
[2025-04-28 07:23] LABS: Vitamin B12 > 1000.0 pg/mL (239-931)
[2025-04-28] MEDS: FLUTICASONE/SALMETEROL 45-21 MCG INHALER 1 PUFF 2 PUFF INHALATION (07:31)
[2025-04-28] MEDS: LORATADINE 10 MG TABLET PO (08:49)
[2025-04-28] MEDS: PANTOPRAZOLE 40 MG TABLET PO ×2 (08:50→21:46)
[2025-04-28] MEDS: METOPROLOL TARTRATE 25 MG TABLET PO ×2 (08:50→21:46)
[2025-04-28] MEDS: FOLIC ACID 1 MG TABLET PO (08:50)
[2025-04-28] MEDS: MIDODRINE HCL 10 MG TABLET PO ×3 (08:50→17:02)
[2025-04-28] MEDS: ATORVASTATIN 40 MG TABLET PO (08:50)
[2025-04-28] MEDS: ALBUTEROL SULFATE (*SP) AEROSOL 1 PUFF 2 PUFF INHALATION (09:15)
--- NOTE | 2025-04-28 12:09 | WPDINFPN2 ---
Progress Note: A&P Assessment and Plan (1) Urinary tract infection: Code(s): N39.0 - Urinary tract infection, site not specified Status: Acute (2) Ovarian cancer: Code(s): C56.9 - Malignant neoplasm of unspecified ovary Status: Acute Plan # Leukocytosis--stable; no fever -- remains elevated but stable. Slight decreased today. -- she currently notes diarrhea over the last several days. C difficile assay is negative. Likely related to use of antibiotics. Zosyn now discontinued. -- leukemoid reaction related to underlying metastatic malignancy May be contributing. -- intermittent drop in hemoglobin may also contributing. # Enterococcus (amp resistant /vancomycin sensitive) complicated urinary tract infection. s/p vanc and augmentin. -- Repeat urine cx 04/19 neg #Pneumonia; MRSA nares neg -- on Zosyn through today. REC -- Zosyn discontinued yesterday as planned. -- with negative stool for C diff will discontinue oral vancomycin. --continue to monitor leukocytosis. dw pharmacy And nursing staff Pt examined via telemedicine with HIPAA-protected audio-visual interface with pt at [facility] in [place], [place] and me in my office in [place]. Pt gave permission. Subjective Date/time seen: 04/28/25 12:09 Interval history: 04/28/2025: No new complaints. Continues to have some loose stools. C difficile assay is negative. Afebrile. White blood cell count 20.1. BUN and creatinine in 2 and 0.53. MRI of the brain showing small vessel ischemic changes. Review of Systems Review of Systems: All systems reviewed & are unremarkable except as noted in HPI and below Objective Data Vital Signs Vital Signs: Vital Signs - 24 hr 04/27/25 12:12 04/27/25 14:00 04/27/25 14:42 Temperature 97.7 F Pulse Rate 87 88 Respiratory Rate 17 Blood Pressure 120/62 138/71 Pulse Oximetry 98 Oxygen Delivery Room Air 04/27/25 14:45 04/27/25 14:48 04/27/25 20:00 Temperature Pulse Rate 76 Respiratory Rate Blood Pressure 132/74 139/114 H Pulse Oximetry Oxygen Delivery Room Air 04/27/25 20:03 04/27/25 20:33 04/27/25 22:00 Temperature 98.3 F Pulse Rate 95 94 94 Respiratory Rate 20 18 Blood Pressure 134/63 Pulse Oximetry 98 Oxygen Delivery 04/28/25 06:00 04/28/25 07:36 04/28/25 08:50 Temperature 97.6 F Pulse Rate 88 95 95 Respiratory Rate 18 15 Blood Pressure 147/74 H Pulse Oximetry 96 Oxygen Delivery 04/28/25 08:50 04/28/25 09:17 04/28/25 09:21 Temperature Pulse Rate 108 H 105 H Respiratory Rate 20 20 Blood Pressure Pulse Oximetry Oxygen Delivery Room Air 04/28/25 10:28 04/28/25 10:32 04/28/25 10:35 Temperature 98.1 F 97.6 F 97.6 F Pulse Rate 84 107 H 95 Respiratory Rate 16 19 18 Blood Pressure 152/89 H 137/92 H 146/91 H Pulse Oximetry 96 96 96 Oxygen Delivery Intake/Output Intake/Output: Intake & Output 04/25/25 04/26/25 04/27/25 04/28/25 23:59 23:59 23:59 23:59 Intake Total 4590 2187.9 4355.0 545.8 Output Total 650 Balance 4590 2187.9 3705.0 545.8 Meds/Results Medications: Active Medications Generic Name Dose Route Start Last Admin Trade Name Freq PRN Reason Stop Dose Admin Acetaminophen 650 mg 03/29/25 19:45 04/26/25 10:53 Acetaminophen 325 Mg Tablet PO 650 mg Q4H PRN Administration Mild Pain (1-3) or Fever Albuterol 2.5 mg 03/29/25 21:50 Albuterol Sulfate Neb 2.5 Mg/3 Ml Inh INHALATION Q4-6H PRN Shortness Of Breath Albuterol 2 puff 04/03/25 17:11 04/28/25 09:15 Albuterol Sulfate (*Sp) Aerosol 1 Puff INHALATION 2 puff Q6HRT PRN Administration Shortness Of Breath Or Wheezing Alteplase, Recombinant 2 mg 04/16/25 09:02 04/16/25 10:24 Alteplase 2 Mg Vial (Cathflo) IV PUSH 2 mg ONCE PRN Administration Line Occlusion Atorvastatin Calcium 40 mg 03/30/25 09:00 04/28/25 08:50 Atorvastatin 40 Mg Tablet PO 40 mg DAILY DANIELE Administration Duloxetine HCl 60 mg 04/14/25 09:00 04/28/25 08:50 Duloxetine Hcl 30 Mg Capsule.Dr PO 60 mg DAILY DANIELE Administration Folic Acid 1 mg 03/30/25 09:00 04/28/25 08:50 Folic Acid 1 Mg Tablet PO 1 mg DAILY DANIELE Administration Heparin Sodium (Beef Lung) 50 units 03/30/25 09:00 04/28/25 08:51 Heparin Flush 50 Units/5 Ml Syringe IV PUSH 50 units QAM DANIELE Administration Heparin Sodium (Beef Lung) 50 units 03/29/25 23:50 Heparin Flush 50 Units/5 Ml Syringe IV PUSH PRN PRN after intermittent infusion Heparin Sodium (Beef Lung) 50 units 03/29/25 23:50 04/26/25 05:15 Heparin Flush 50 Units/5 Ml Syringe IV PUSH 50 units PRN PRN Administration after blood draws Heparin Sodium (Porcine) 500 units 03/29/25 23:50 04/11/25 23:05 Heparin Sodium Lock Flush 500 Units/5 Ml Syringe IV PUSH 500 units PRN PRN Administration see comments below Loratadine 10 mg 03/30/25 09:00 04/28/25 08:49 Loratadine 10 Mg Tablet PO 10 mg QAM DANIELE Administration Menthol/Methyl Salicylate 1 applic 04/06/25 02:01 04/19/25 23:09 Menthol 10% / Methyl Salicylate 15% 57 Gm Tube TOPICAL 1 applic BID PRN Administration Muscle/Joint Pain Metoprolol Tartrate 25 mg 04/11/25 21:00 04/28/25 08:50 Metoprolol Tartrate 25 Mg Tablet PO 25 mg Q12HR DANIELE Administration Midodrine 10 mg 04/03/25 23:20 04/28/25 08:50 Midodrine Hcl 10 Mg Tablet PO 10 mg TID DANIELE Administration Montelukast Sodium 10 mg 03/29/25 21:00 04/27/25 20:35 Montelukast Sodium 10 Mg Tablet PO 10 mg HS DANIELE Administration Ondansetron HCl 4 mg 04/20/25 10:08 04/25/25 13:41 Ondansetron Inj 4 Mg/2 Ml Vial IV PUSH 4 mg Q4H PRN Administration Nausea And Vomiting Oxycodone/Acetaminophen 1 tablet 04/22/25 18:33 04/28/25 08:50 Oxycodone/Acetaminophen (*Crx) 5-325 Mg Tablet PO 1 tablet Q6H PRN Administration Pain Rated 7-10 Pantoprazole Sodium 40 mg 04/07/25 21:00 04/28/25 08:50 Pantoprazole 40 Mg Tablet PO 40 mg Q12HR DANIELE Administration Polyethylene Glycol 17 gm 04/02/25 09:00 04/28/25 08:50 Polyethylene Glycol 3350 17 Gm Powd.Pack PO 17 gm QAM DANIELE Administration Fluticasone/Salmeterol 2 puff 03/29/25 20:00 04/28/25 07:31 Fluticasone/Salmeterol 45-21 Mcg Inhaler 1 Puff INHALATION 2 puff Q12HRT DANIELE Administration Senna 17.2 mg 03/30/25 09:00 04/02/25 08:36 Sennosides 8.6 Mg Tablet PO 17.2 mg On Hold: 04/02/25 08:45 BID DANIELE Administration Sodium Chloride 10 ml 03/30/25 06:00 04/28/25 08:46 Central Line Flush IV PUSH Not Given Q8HR DANIELE Vancomycin HCl 125 mg 04/27/25 18:00 04/28/25 05:17 Vancomycin Hcl 125 Mg Oral Capsule PO 05/07/25 17:59 125 mg Q6HR DANIELE Administration Radiology Results: ITS Impressions Head/Neck CTA 03/29/25 08:51 IMPRESSION: CTA NECK: 1. No ICA stenosis or other acute arterial abnormality. 2. Lytic bony metastatic disease C2, C5. 3. Lytic bony metastatic disease right scapula with large associated soft tissue component. CTA HEAD: 1. No large vessel arterial occlusive disease or other acute arterial abnormality. Venous Doppler Study 03/31/25 17:18 IMPRESSION: 1: No lower extremity deep venous thrombosis. Shoulder X-Ray 04/11/25 15:25 Impression: No acute fracture or malalignment. Chest X-Ray 04/22/25 13:14 Impression: Bilateral pneumonia. The findings appear slightly progressed compared to the previous study Head CT 04/23/25 14:10 Impression: 1.No acute intracranial abnormality. Chest/Abdomen/Pelvis CT 04/23/25 15:33 IMPRESSION: 1. [Multiple pulmonary nodules are noted in the lungs bilaterally measuring up to 12 mm. There is a enlarged precarinal lymph node measuring 16 mm. This may represent metastases. Multiple liver masses are noted suggestive of malignancy. Brain MRI 04/27/25 07:37 IMPRESSION: 1. Stable mild nonspecific cerebral white matter disease and pontine disease, which likely represents chronic small vessel ischemic disease. Labs Labs: Laboratory Results - last 24 hr 04/27/25 04/28/25 15:02 05:22 WBC 20.1 H RBC 2.58 L Hgb 7.5 L Hct 23.9 L MCV 92.6 MCH 29.1 MCHC 31.4 L RDW 18.5 H Plt Count 326 MPV 9.1 Immature Gran % (Auto) Not Reportable Neut % (Auto) Not Reportable Lymph % (Auto) Not Reportable [place]y % (Auto) Not Reportable Eos % (Auto) Not Reportable Baso % (Auto) Not Reportable Lymph # (Auto) Not Reportable [place] # (Auto) Not Reportable Eos # (Auto) Not Reportable Baso # (Auto) Not Reportable Abs Immat Gran (auto) Not Reportable Absolute Neuts (auto) Not Reportable Absolute Nucleated RBC Not Reportable Total Counted 100 Neutrophils % (Manual) 83 H Band Neutrophils % 10 H Lymphocytes % (Manual) 2 L Monocytes % (Manual) 2 L Eosinophils % (Manual) 3 Nucleated RBC % Not Reportable Abs Neuts (Manual) 18.69 H Abs Lymphs (Manual) 0.40 L Abs Monocytes (Manual) 0.40 Absolute Eos (Manual) 0.60 H Platelet Estimate Adequate Hypochromasia 1+ Anisocytosis 1+ Tear Drop Cells Occasional [place] Cells 1+ Acanthocytes (Spur) 1+ Schistocytes Occasional Sodium 133 L Potassium 2.9 L Chloride 108 H Carbon Dioxide 19 L Anion Gap 6 BUN 2 L Creatinine 0.53 L Estim Creat Clear Calc 91 Estimated GFR > 60 Glucose 82 Calcium 8.1 L Magnesium 1.8 Iron 12 L TIBC 79 L % Saturation 15 L Ferritin 797.00 H Total Bilirubin 0.5 AST 36 ALT 19 Alkaline Phosphatase 279 H Total Protein 5.1 L Albumin 2.1 L Vitamin B12 > 1000.0 H Folate 16.6 C. difficile (PCR) Negative
[2025-04-28] MEDS: CENTRAL LINE FLUSH 10 ML IV PUSH ×2 (12:26→21:54)
--- NOTE | 2025-04-28 13:22 | PC.NURSE ---
On 04/28/25, the student, [Nelly Barton], provided care and completed [facility] documentation on this patient. I have reviewed the student's documentation and agree with the findings.
--- NOTE | 2025-04-28 14:51 | PM.IMPN ---
Progress Note: A&P Assessment and Plan (1) Patent foramen ovale with right to left shunt: Code(s): Q21.12 - Patent foramen ovale Status: Acute (2) Cardiomyopathy: Code(s): I42.9 - Cardiomyopathy, unspecified Status: Acute (3) Hypercalcemia of malignancy: Code(s): E83.52 - Hypercalcemia Status: Acute (4) Hypokalemia: Code(s): E87.6 - Hypokalemia Status: Acute (5) Urinary tract infection: Code(s): N39.0 - Urinary tract infection, site not specified Status: Acute (6) Anemia: Code(s): D64.9 - Anemia, unspecified Status: Acute (7) Ovarian cancer: Code(s): C56.9 - Malignant neoplasm of unspecified ovary Status: Acute (8) Altered mental status: Code(s): R41.82 - Altered mental status, unspecified Status: Acute Plan 59-year-old female with past medical history of stage IV ovarian cancer with metastasis presenting with worsening mental status. She had recent clearly experiencing weakness, reduced appetite, slurring speech These symptoms were a significant change from the patient's baseline just days prior. Patient has been treated with chemo, radiation in the past, currently on maintenance therapy with Keytruda. , CT head without contrast showed age indeterminate focus of left frontal subcortical ischemia, no hemorrhage, CTA head and neck last night showed no ICA stenosis or other acute arterial abnormality, lytic bony metastatic disease C2, C5, lytic bony metastatic disease right scapula with large associated soft tissue component, no large vessel arterial occlusion disease or other acute arterial abnormality. Blood workup showed calcium level of 14.4 . Received calcitonin, zoledronic acid hypercalcemia. 1. Altered mental status/acute encephalopathy: CT with age indeterminate focus of left frontal subcortical ischemia MRI brain unremarkable Echocardiogram with EF of 40-45% with regional wall motion abnormality, PFO Mental status has improved Neurology following continues to be confused. 2. UTI: Completed course of ceftriaxone However UA positive for UTI again Restarted ceftriaxone 04/11/2025 Follow urine culture Febrile again 04/12/2025. Switch ceftriaxone to cefepime Follow urine culture Which came back as Enterococcus ampicillin resistant status post vancomycin IV Repeat urine culture 04/19Is negative. Patient currently on Zosyn which concludes 04/27/2025 Leukocytosis still persists. Could be related to underlying metastatic ovarian cancer # Vaginitis received a dose of fluconazole 04/13/2025 3. Hypercalcemia: Likely secondary to malignancy Received zoledronic acid, calcitonin, IV fluids Hypercalcemia has resolved 4. Anemia: Status post 2 units of PRBC H&H stable H&H dropped today to 7.6. No signs of bleeding. Hemoglobin down to 6.7. Transfuse 1 unit of PRBC. 5. History of metastatic ovarian cancer: MRI brain unremarkable Patient follows up with Oncology at [facility] Consult oncology here 6.) Cardiomyopathy: Patent foramen ovale Echo showing EF 40-45% with regional wall motion abnormality and PFO with R-->L shunt Cardiology consulted. LE venous doppler negative for DVT so unlikely paradoxical CVA. Metoprolol tartrate started. Maxide stopped and losartan added Due to HoTN and anemia, Plavix stopped. Continue tele monitoring. Continue statin. Verapamil has been stopped Will need home O2 evaluation before discharge Currently on room air 7. History of hypertension: Continue with losartan, metoprolol Verapamil has been stopped #Lice in hair treated with permethrin # disposition to [facility] when bed available # pneumonia: ID on board CT chest abdomen pelvis performed which showed multiple pulmonary nodules noted in the lungs bilaterally measuring up to 12 mm. May represent metastatic disease. Multiple liver masses are also noted suggestive of malignancy. Otherwise lungs are clear. # depression # headache recent CT head was negative. Repeat MRI brain negative. She does have metastasis to cervical spine 8. Code status: Full 9. DVT prophylaxis: SCDs 9. Disposition: Pending placement. Goals of care discussion extensively with daughter had other over the phone 04/28/2025. Suggested palliative care/hospice with her underlying metastatic ovarian cancer and continued decline. Also discussed about code status. She will discuss further with her brother and continue to monitor for few more days Subjective Date/time seen: 04/28/25 14:51 Interval history: no overnight events. Patient bit more confused today. Long discussion about goals of care with the daughter over the phone. Labs reviewed. Persistent leukocytosis. Leaning towards metastatic cancer as an etiology Review of Systems Review of Systems: All systems reviewed & are unremarkable except as noted in HPI and below Exam Narrative: Gen -no acute distress Chest -bilateral clear to auscultation CV - Regular rate and rhythm with S1-S2. Abd - soft, NT/ND with positive bowel sounds. Ext - no pedal edema Psych- alert, but confused and cooperative Skin - Warm and dry. Objective Data Vital Signs Vital Signs: Vital Signs - 24 hr 04/27/25 20:00 04/27/25 20:03 04/27/25 20:33 Temperature Pulse Rate 95 94 Respiratory Rate 20 Blood Pressure Pulse Oximetry Oxygen Delivery Room Air 04/27/25 22:00 04/28/25 06:00 04/28/25 07:36 Temperature 98.3 F 97.6 F Pulse Rate 94 88 95 Respiratory Rate 18 18 15 Blood Pressure 134/63 147/74 H Pulse Oximetry 98 96 Oxygen Delivery 04/28/25 08:50 04/28/25 08:50 04/28/25 09:17 Temperature Pulse Rate 95 108 H Respiratory Rate 20 Blood Pressure Pulse Oximetry Oxygen Delivery Room Air 04/28/25 09:21 04/28/25 10:28 04/28/25 10:32 Temperature 98.1 F 97.6 F Pulse Rate 105 H 84 107 H Respiratory Rate 20 16 19 Blood Pressure 152/89 H 137/92 H Pulse Oximetry 96 96 Oxygen Delivery 04/28/25 10:35 04/28/25 14:00 Temperature 97.6 F 97.6 F Pulse Rate 95 102 H Respiratory Rate 18 19 Blood Pressure 146/91 H 145/85 H Pulse Oximetry 96 97 Oxygen Delivery Intake/Output Intake/Output: Intake & Output 04/25/25 04/26/25 04/27/25 04/28/25 23:59 23:59 23:59 23:59 Intake Total 4590 2187.9 4355.0 545.8 Output Total 650 Balance 4590 2187.9 3705.0 545.8 Meds/Results Medications: Active Medications Generic Name Dose Route Start Last Admin Trade Name Freq PRN Reason Stop Dose Admin Acetaminophen 650 mg 03/29/25 19:45 04/26/25 10:53 Acetaminophen 325 Mg Tablet PO 650 mg Q4H PRN Administration Mild Pain (1-3) or Fever Albuterol 2.5 mg 03/29/25 21:50 Albuterol Sulfate Neb 2.5 Mg/3 Ml Inh INHALATION Q4-6H PRN Shortness Of Breath Albuterol 2 puff 04/03/25 17:11 04/28/25 09:15 Albuterol Sulfate (*Sp) Aerosol 1 Puff INHALATION 2 puff Q6HRT PRN Administration Shortness Of Breath Or Wheezing Alteplase, Recombinant 2 mg 04/16/25 09:02 04/16/25 10:24 Alteplase 2 Mg Vial (Cathflo) IV PUSH 2 mg ONCE PRN Administration Line Occlusion Atorvastatin Calcium 40 mg 03/30/25 09:00 04/28/25 08:50 Atorvastatin 40 Mg Tablet PO 40 mg DAILY DANIELE Administration Duloxetine HCl 60 mg 04/14/25 09:00 04/28/25 08:50 Duloxetine Hcl 30 Mg Capsule.Dr PO 60 mg DAILY DANIELE Administration Folic Acid 1 mg 03/30/25 09:00 04/28/25 08:50 Folic Acid 1 Mg Tablet PO 1 mg DAILY DANIELE Administration Heparin Sodium (Beef Lung) 50 units 03/30/25 09:00 04/28/25 08:51 Heparin Flush 50 Units/5 Ml Syringe IV PUSH 50 units QAM DANIELE Administration Heparin Sodium (Beef Lung) 50 units 03/29/25 23:50 Heparin Flush 50 Units/5 Ml Syringe IV PUSH PRN PRN after intermittent infusion Heparin Sodium (Beef Lung) 50 units 03/29/25 23:50 04/26/25 05:15 Heparin Flush 50 Units/5 Ml Syringe IV PUSH 50 units PRN PRN Administration after blood draws Heparin Sodium (Porcine) 500 units 03/29/25 23:50 04/11/25 23:05 Heparin Sodium Lock Flush 500 Units/5 Ml Syringe IV PUSH 500 units PRN PRN Administration see comments below Loratadine 10 mg 03/30/25 09:00 04/28/25 08:49 Loratadine 10 Mg Tablet PO 10 mg QAM DANIELE Administration Menthol/Methyl Salicylate 1 applic 04/06/25 02:01 04/19/25 23:09 Menthol 10% / Methyl Salicylate 15% 57 Gm Tube TOPICAL 1 applic BID PRN Administration Muscle/Joint Pain Metoprolol Tartrate 25 mg 04/11/25 21:00 04/28/25 08:50 Metoprolol Tartrate 25 Mg Tablet PO 25 mg Q12HR DANIELE Administration Midodrine 10 mg 04/03/25 23:20 04/28/25 12:25 Midodrine Hcl 10 Mg Tablet PO 10 mg TID DANIELE Administration Montelukast Sodium 10 mg 03/29/25 21:00 04/27/25 20:35 Montelukast Sodium 10 Mg Tablet PO 10 mg HS DANIELE Administration Ondansetron HCl 4 mg 04/20/25 10:08 04/25/25 13:41 Ondansetron Inj 4 Mg/2 Ml Vial IV PUSH 4 mg Q4H PRN Administration Nausea And Vomiting Oxycodone/Acetaminophen 1 tablet 04/22/25 18:33 04/28/25 08:50 Oxycodone/Acetaminophen (*Crx) 5-325 Mg Tablet PO 1 tablet Q6H PRN Administration Pain Rated 7-10 Pantoprazole Sodium 40 mg 04/07/25 21:00 04/28/25 08:50 Pantoprazole 40 Mg Tablet PO 40 mg Q12HR DANIELE Administration Polyethylene Glycol 17 gm 04/02/25 09:00 04/28/25 08:50 Polyethylene Glycol 3350 17 Gm Powd.Pack PO 17 gm QAM DANIELE Administration Fluticasone/Salmeterol 2 puff 03/29/25 20:00 04/28/25 07:31 Fluticasone/Salmeterol 45-21 Mcg Inhaler 1 Puff INHALATION 2 puff Q12HRT DANIELE Administration Senna 17.2 mg 03/30/25 09:00 04/02/25 08:36 Sennosides 8.6 Mg Tablet PO 17.2 mg On Hold: 04/02/25 08:45 BID DANIELE Administration Sodium Chloride 10 ml 03/30/25 06:00 04/28/25 12:26 Central Line Flush IV PUSH 10 ml Q8HR DANIELE Administration Radiology Results: ITS Impressions Head/Neck CTA 03/29/25 08:51 IMPRESSION: CTA NECK: 1. No ICA stenosis or other acute arterial abnormality. 2. Lytic bony metastatic disease C2, C5. 3. Lytic bony metastatic disease right scapula with large associated soft tissue component. CTA HEAD: 1. No large vessel arterial occlusive disease or other acute arterial abnormality. Venous Doppler Study 03/31/25 17:18 IMPRESSION: 1: No lower extremity deep venous thrombosis. Shoulder X-Ray 04/11/25 15:25 Impression: No acute fracture or malalignment. Chest X-Ray 04/22/25 13:14 Impression: Bilateral pneumonia. The findings appear slightly progressed compared to the previous study Head CT 04/23/25 14:10 Impression: 1.No acute intracranial abnormality. Chest/Abdomen/Pelvis CT 04/23/25 15:33 IMPRESSION: 1. [Multiple pulmonary nodules are noted in the lungs bilaterally measuring up to 12 mm. There is a enlarged precarinal lymph node measuring 16 mm. This may represent metastases. Multiple liver masses are noted suggestive of malignancy. Brain MRI 04/27/25 07:37 IMPRESSION: 1. Stable mild nonspecific cerebral white matter disease and pontine disease, which likely represents chronic small vessel ischemic disease. Labs Labs: Laboratory Results - last 24 hr 04/27/25 04/28/25 15:02 05:22 WBC 20.1 H RBC 2.58 L Hgb 7.5 L Hct 23.9 L MCV 92.6 MCH 29.1 MCHC 31.4 L RDW 18.5 H Plt Count 326 MPV 9.1 Immature Gran % (Auto) Not Reportable Neut % (Auto) Not Reportable Lymph % (Auto) Not Reportable [place] % (Auto) Not Reportable Eos % (Auto) Not Reportable Baso % (Auto) Not Reportable Lymph # (Auto) Not Reportable [place] # (Auto) Not Reportable Eos # (Auto) Not Reportable Baso # (Auto) Not Reportable Abs Immat Gran (auto) Not Reportable Absolute Neuts (auto) Not Reportable Absolute Nucleated RBC Not Reportable Total Counted 100 Neutrophils % (Manual) 83 H Band Neutrophils % 10 H Lymphocytes % (Manual) 2 L Monocytes % (Manual) 2 L Eosinophils % (Manual) 3 Nucleated RBC % Not Reportable Abs Neuts (Manual) 18.69 H Abs Lymphs (Manual) 0.40 L Abs Monocytes (Manual) 0.40 Absolute Eos (Manual) 0.60 H Platelet Estimate Adequate Hypochromasia 1+ Anisocytosis 1+ Tear Drop Cells Occasional [place] Cells 1+ Acanthocytes (Spur) 1+ Schistocytes Occasional Sodium 133 L Potassium 2.9 L Chloride 108 H Carbon Dioxide 19 L Anion Gap 6 BUN 2 L Creatinine 0.53 L Estim Creat Clear Calc 91 Estimated GFR > 60 Glucose 82 Calcium 8.1 L Magnesium 1.8 Iron 12 L TIBC 79 L % Saturation 15 L Ferritin 797.00 H Total Bilirubin 0.5 AST 36 ALT 19 Alkaline Phosphatase 279 H Total Protein 5.1 L Albumin 2.1 L Vitamin B12 > 1000.0 H Folate 16.6 C. difficile (PCR) Negative
--- NOTE | 2025-04-28 17:13 | WPDCNPSYCH ---
Assessment and Plan Assessment and plan (1) Anxiety and depression: Code(s): F41.9 - Anxiety disorder, unspecified; F32.A - Depression, unspecified Status: Acute Assessment and Plan: Plan: Medications: - continue Cymbalta- monitor sodium levels (can worsen hyponatremia) - Start mirtazapine 7.5 mg at night for appetite stimulation, depression, anxiety, and sleep; can increase to 15 mg at night if needed for mood improvement. - Restart home clonazepam for anxiety as needed; verify dose and frequency with pharmacy. (daughter reports she has been on this for years) Non-pharmacological interventions: - Supportive psychotherapy and reassurance from family. - Encourage engagement in brief, low-energy activities as tolerated. - Monitor hydration and nutrition, involve dietitian for appetite support. HPI Data of Consult Date/Time: 04/28/25 17:13 Requesting Physician: Olimpia Velasquez MD Primary Care Provider: Elyse Pinto, PAINT BOOTH OPERATOR Consult Narrative Narrative: Iliana Montero is a 59 year old female diagnosed with cancer with metastases. She has a history of chronic anxiety treated with Ativan, though her exact dose and frequency are unclear. The patient reports fatigue, low mood, anhedonia, poor concentration, psychomotor slowing, and decreased appetite. She denies suicidal ideation. Her daughter reports that she was alert and oriented last month and provides additional history due to the patient being a poor historian. During assessment, the patient was tearful, somnolent, and had poor verbal response. She was able to provide her name and birthday but reported an incorrect year. Respirations were labored due to COPD, and respiratory therapy administered a breathing treatment during the assessment. A lorazepam (2 mg IV) challenge was administered to evaluate for catatonia, which was negative. Current presentation does not suggest catatonia. Medications include Cymbalta for neuropathy, which may contribute to hyponatremia, and intermittent Ativan. Review of Systems Psychiatric: Psychiatric: Reports anxiety, Reports change in appetite, Reports confusion, Reports depression, Reports difficulty concentrating, Reports hopelessness, Reports anhedonia and Reports memory loss PMF Past Medical History Medical History (Updated 04/28/25 @ 20:43 by Cheng Garcia, PAINT BOOTH OPERATOR) Hypertension Benign breast lumps Surgical History Surgical History H/O: hysterectomy Family History Family History Sibling Diabetes mellitus Mother Breast cancer in female Daughter Hypertension Other Unknown family medical history Social History Social History Smoking packs per day: 1 Smoking cigarettes per day: 20.0 Years smoked: 30 Smoking pack-years: 30.00 Smoking status: Former smoker Tobacco type: cigarettes Smokeless tobacco user: other Second hand tobacco smoke exposure: No Smoking end date: 07/09/15 Additional smoking assessment comments: Smokes marijuana and chews nicotine gum Alcohol intake: former Drinks per week: 0 Substance use: current Substance use type: marijuana Last use: a week ago Lack of Transportation: YES Lack of Food: Never True Current Housing: I Have Housing Concerned About Future Housing: No Difficulty Paying Gas/Electric Bills: No Difficulty Paying for Meds: No Currently Unemployed: No Education: High School Diploma/GED Difficulty w/ Childcare or Family Care: No Living arrangements: with family Occupation/Education: other Gender identity (if verbalized by the patient): Female Spiritual care concerns: No Meds Home Medications and Allergies Home Medications ?Medication ?Instructions ?Recorded ?Confirmed ?Type inhalational spacing device #1 ea 01/27/20 03/29/25 Rx (Amber Amber [facility] spacer) Symbicort 80 mcg-4.5 mcg/actuation 2 puff inhalation Q12H #10.2 grams 08/04/21 03/29/25 Rx HFA aerosol inhaler (budesonide-formoterol) albuterol sulfate 90 mcg/actuation 2 inh inhalation Q6H PRN shortness 11/08/21 03/29/25 Rx aerosol inhaler of breath or wheezing #1 ea cholecalciferol (vitamin D3) 125 125 mcg PO DAILY 11/08/21 03/29/25 History mcg (5,000 unit) capsule clonazepam 1 mg tablet 1 mg PO TID 11/08/21 03/29/25 History triamterene 37.5 1 cap PO DAILY 11/08/21 03/29/25 History mg-hydrochlorothiazide 25 mg capsule verapamil 180 mg 24 hr 180 mg PO DAILY 11/08/21 03/29/25 History capsule,extended release albuterol sulfate 2.5 mg/3 mL See Rx Instructions .Route 07/31/22 03/29/25 Rx (0.083 %) solution for nebulization .COMPLEX #180 mL atorvastatin 40 mg tablet 40 mg PO DAILY 11/01/22 03/29/25 History duloxetine 30 mg capsule,delayed 30 mg PO DAILY 03/29/25 03/29/25 History release folic acid 1 mg tablet 1 mg PO DAILY 03/29/25 03/29/25 History loratadine 10 mg capsule 10 mg PO Q24H 03/29/25 03/29/25 History montelukast 10 mg tablet 10 mg PO QPM 03/29/25 03/29/25 History ondansetron HCl 8 mg tablet 8 mg PO Q12H PRN nausea and 03/29/25 03/29/25 History vomiting sennosides 8.6 mg capsule (senna) 17.2 mg PO BID 03/29/25 03/29/25 History Allergies Allergy/AdvReac Type Severity Reaction Status Date / Time mushroom Allergy Severe Anaphylaxis Verified 03/29/25 22:16 varenicline (From Chantix) Allergy Severe Depression Verified 03/29/25 22:16 bupropion (From Wellbutrin) AdvReac Severe Depression Verified 03/29/25 22:16 Vital Signs Vital Signs - 24 hr 04/27/25 20:00 04/27/25 20:03 04/27/25 20:33 Temperature Pulse Rate 95 94 Respiratory Rate 20 Blood Pressure Pulse Oximetry Oxygen Delivery Room Air 04/27/25 22:00 04/28/25 06:00 04/28/25 07:36 Temperature 98.3 F 97.6 F Pulse Rate 94 88 95 Respiratory Rate 18 18 15 Blood Pressure 134/63 147/74 H Pulse Oximetry 98 96 Oxygen Delivery 04/28/25 08:50 04/28/25 08:50 04/28/25 09:17 Temperature Pulse Rate 95 108 H Respiratory Rate 20 Blood Pressure Pulse Oximetry Oxygen Delivery Room Air 04/28/25 09:21 04/28/25 10:28 04/28/25 10:32 Temperature 98.1 F 97.6 F Pulse Rate 105 H 84 107 H Respiratory Rate 20 16 19 Blood Pressure 152/89 H 137/92 H Pulse Oximetry 96 96 Oxygen Delivery 04/28/25 10:35 04/28/25 14:00 Temperature 97.6 F 97.6 F Pulse Rate 95 102 H Respiratory Rate 18 19 Blood Pressure 146/91 H 145/85 H Pulse Oximetry 96 97 Oxygen Delivery Exam Psych: Other: Appearance: Somnolent, tearful, slow psychomotor activity Speech: Slow, limited verbal output Mood: Depressed Affect: Tearful, anxious Thought Process: Linear Thought Content: No suicidal or homicidal ideation Cognition: Oriented to person; partially oriented to time Insight/Judgment: Limited due to somnolence Behavior: Cooperative, fatigued, falls asleep during assessment Results Labs 04/28/25 05:22 04/28/25 05:22 Labs: Short CBC 04/28/25 Range/Units 05:22 WBC 20.1 H (4.5-10.0) K/mm3 Hgb 7.5 L (12.0-15.0) g/dL Hct 23.9 L (37.0-47.0) % Plt Count 326 (150-375) k/mm3 BMP 04/28/25 05:22 Sodium 133 L Potassium 2.9 L Chloride 108 H Carbon Dioxide 19 L BUN 2 L Creatinine 0.53 L Glucose 82 Calcium 8.1 L Liver Function 04/28/25 Range/Units 05:22 Total Bilirubin 0.5 (0.2-1.3) mg/dL AST 36 (14-36) U/L ALT 19 (6-35) U/L Alkaline Phosphatase 279 H (38-126) U/L Albumin 2.1 L (3.5-5.1) g/dL
[2025-04-28] MEDS: LORazepam INJ (*CRX) 2 MG/ML VIAL IV PUSH (18:14)
[2025-04-28] MEDS: ALBUTEROL SULFATE NEB 2.5 MG/3 ML INH INHALATION ×2 (18:26→23:57)
[2025-04-28] MEDS: FUROSEMIDE INJ 40 MG/4 ML VIAL IV PUSH (19:17)
[2025-04-28] MEDS: POTASSIUM CHLORIDE 20 MEQ ER TABLET 40 MEQ PO (21:45)
[2025-04-28] MEDS: MIRTAZAPINE 7.5 MG TABLET PO (21:46)
[2025-04-28] MEDS: MONTELUKAST SODIUM 10 MG TABLET PO (21:46)
[2025-04-29] VITALS (10 sets, daily range): BP systolic 127–145; BP diastolic 57–87; PULSE 82–109; RESP 16–24; TEMP 36.4–36.7; O2SAT 96–99
[2025-04-29 05:53] LABS: Hematocrit 25.9 % (37.0-47.0); Hemoglobin 8.3 g/dL (12.0-15.0); Immature Granulocyte Percent A 2.6 % (0-0.5); Lymphocytes Absolute Auto 0.72 K/mm3 (0.9-3.2); Mean Corpuscular HGB Conc 32.0 g/dl (32-36); Mean Corpuscular Hemoglobin 29.2 pg (26-34); Mean Corpuscular Volume 91.2 fl (80-100); Nucleated Red Blood Cells Absolute Auto 0.000 K/mm3 (0.0-0.012); Nucleated Red Blood Cells Perc 0.0 % (0.0-0.2); Platelet Count Result 352 k/mm3 (150-375); Red Blood Count 2.84 M/mm3 (4.2-5.4); White Blood Count 21.2 K/mm3 (4.5-10.0)
[2025-04-29 06:28] LABS: Alanine Aminotransferase 18 U/L (6-35); Albumin Level 2.3 g/dL (3.5-5.1); Alkaline Phosphatase 305 U/L (38-126); Anion Gap 7 mmol/L (4-12); Aspartate Amino Transferase 27 U/L (14-36); Bilirubin,Total 0.7 mg/dL (0.2-1.3); Calcium 9.1 mg/dL (8.4-10.2); Carbon Dioxide 23 mmol/L (22-30); Chloride 103 mmol/L (98-107); Estimated CRCL calculation 79 ml/min; Estimated Glomerular Filt Rate > 60; Glucose 80 mg/dL (65-110); Magnesium 1.7 mg/dL (1.6-2.3); Potassium 2.7 mmol/L (3.4-5.0); Sodium 133 mmol/L (137-145); Total Protein 5.5 g/dL (6.3-8.2)
[2025-04-29 06:31] LABS: Acanthocytes 1+; Anisocytosis 1+; Burr Cells 2+; Hypochromasia 1+
[2025-04-29 06:32] LABS: Ovalocytes 1+; Schistocytes 1+
[2025-04-29 06:44] LABS: Blood Urea Nitrogen < 2 mg/dL (7-17)
[2025-04-29] MEDS: MAGNESIUM SULF 2 GM/WATER 50ML 2 GM/50 ML BAG IVPB (06:46)
[2025-04-29] MEDS: CENTRAL LINE FLUSH 10 ML IV PUSH ×2 (06:46→21:24)
[2025-04-29] MEDS: POTASSIUM CHLORIDE 20 MEQ ER TABLET 40 MEQ PO (06:47)
[2025-04-29] MEDS: FLUTICASONE/SALMETEROL 45-21 MCG INHALER 1 PUFF 2 PUFF INHALATION ×2 (08:19→19:31)
[2025-04-29] MEDS: MIDODRINE HCL 10 MG TABLET PO ×2 (09:02→17:10)
[2025-04-29] MEDS: LORATADINE 10 MG TABLET PO (09:02)
[2025-04-29] MEDS: ACETAMINOPHEN 325 MG TABLET 650 MG PO (09:02)
[2025-04-29] MEDS: METOPROLOL TARTRATE 25 MG TABLET PO ×2 (09:02→20:25)
[2025-04-29] MEDS: FOLIC ACID 1 MG TABLET PO (09:02)
[2025-04-29] MEDS: PANTOPRAZOLE 40 MG TABLET PO ×2 (09:02→20:26)
[2025-04-29] MEDS: clonazePAM (*CRX) 0.5 MG TABLET PO ×2 (09:02→20:28)
[2025-04-29] MEDS: ATORVASTATIN 40 MG TABLET PO (09:02)
[2025-04-29] MEDS: POTASSIUM CHLORIDE INJ 40 MEQ in SODIUM CHLORIDE 0.9% IV 500 ML 130 MEQ IVPB (09:03)
--- NOTE | 2025-04-29 09:55 | WPDINFPN2 ---
Progress Note: A&P Assessment and Plan (1) Urinary tract infection: Code(s): N39.0 - Urinary tract infection, site not specified Status: Acute (2) Ovarian cancer: Code(s): C56.9 - Malignant neoplasm of unspecified ovary Status: Acute Plan # Leukocytosis--stable; no fever -- remains elevated but stable. -- recent complaint of diarrhea but C difficile negative. Likely related to use of antibiotics. Zosyn now discontinued. -- leukemoid reaction related to underlying metastatic malignancy May be contributing. -- intermittent drop in hemoglobin may also contributing. # Enterococcus (amp resistant /vancomycin sensitive) complicated urinary tract infection. s/p vanc and augmentin. -- Repeat urine cx 04/19 neg #Pneumonia; MRSA nares neg -- completed a course of Zosyn yesterday. Recommendations: -- Zosyn discontinued as planned. -- with negative stool for C diff have discontinued oral vancomycin. -- with persistent leukocytosis and confusion today we will repeat blood cultures ( maintains Port-A-Cath) and will repeat urinalysis with culture. --continue to monitor leukocytosis. pharmacy and nursing staff Pt examined via telemedicine with HIPAA-protected audio-visual interface with pt at [facility] in [place], [place] and me in my office in [place]. Pt gave permission. Subjective Date/time seen: 04/29/25 09:55 Interval history: 04/28/2025: No new complaints. Continues to have some loose stools. C difficile assay is negative. Afebrile. White blood cell count 20.1. BUN and creatinine in 2 and 0.53. MRI of the brain showing small vessel ischemic changes. 04/29/2025: Afebrile with normal vital signs. However more confused today. She denies diarrhea. White blood cell count remains at 21.2. Antibiotics discontinued yesterday. Chest x-ray 04/28 consistent with pulmonary edema. Review of Systems Review of Systems: reviewed. as per HPI All systems reviewed & are unremarkable except as noted in HPI and below Exam Narrative: No apparent distress but more confused today. Right PAC--no erythema . Abdomen is nondistended and soft. Objective Data Vital Signs Vital Signs: Vital Signs - 24 hr 04/28/25 10:28 04/28/25 10:32 04/28/25 10:35 Temperature 98.1 F 97.6 F 97.6 F Pulse Rate 84 107 H 95 Respiratory Rate 16 19 18 Blood Pressure 152/89 H 137/92 H 146/91 H Pulse Oximetry 96 96 96 Oxygen Delivery 04/28/25 14:00 04/28/25 18:26 04/28/25 18:39 Temperature 97.6 F Pulse Rate 102 H 106 H 105 H Respiratory Rate 19 22 H 22 H Blood Pressure 145/85 H Pulse Oximetry 97 Oxygen Delivery 04/28/25 20:00 04/28/25 21:46 04/28/25 21:55 Temperature 98.8 F Pulse Rate 116 H 116 H Respiratory Rate 20 Blood Pressure 140/74 Pulse Oximetry 95 Oxygen Delivery Room Air 04/28/25 23:57 04/29/25 00:05 04/29/25 06:00 Temperature 97.7 F Pulse Rate 102 H 106 H 91 Respiratory Rate 24 H 24 H 18 Blood Pressure 136/65 Pulse Oximetry 96 Oxygen Delivery 04/29/25 08:20 Temperature Pulse Rate 99 Respiratory Rate 16 Blood Pressure Pulse Oximetry Oxygen Delivery Intake/Output Intake/Output: Intake & Output 04/26/25 04/27/25 04/28/25 04/29/25 23:59 23:59 23:59 23:59 Intake Total 2187.9 4355.0 795.8 350 Output Total 650 0 1800 Balance 2187.9 3705.0 795.8 -1450 Meds/Results Medications: Active Medications Generic Name Dose Route Start Last Admin Trade Name Freq PRN Reason Stop Dose Admin Acetaminophen 650 mg 03/29/25 19:45 04/29/25 09:02 Acetaminophen 325 Mg Tablet PO 650 mg Q4H PRN Administration Mild Pain (1-3) or Fever Albuterol 2.5 mg 03/29/25 21:50 04/28/25 23:57 Albuterol Sulfate Neb 2.5 Mg/3 Ml Inh INHALATION 2.5 mg Q4-6H PRN Administration Shortness Of Breath Albuterol 2 puff 04/03/25 17:11 04/28/25 09:15 Albuterol Sulfate (*Sp) Aerosol 1 Puff INHALATION 2 puff Q6HRT PRN Administration Shortness Of Breath Or Wheezing Alteplase, Recombinant 2 mg 04/16/25 09:02 04/16/25 10:24 Alteplase 2 Mg Vial (Cathflo) IV PUSH 2 mg ONCE PRN Administration Line Occlusion Atorvastatin Calcium 40 mg 03/30/25 09:00 04/29/25 09:02 Atorvastatin 40 Mg Tablet PO 40 mg DAILY DANIELE Administration Clonazepam 0.5 mg 04/29/25 07:05 04/29/25 09:02 Clonazepam (*Crx) 0.5 Mg Tablet PO 0.5 mg Q8H PRN Administration Anxiety Duloxetine HCl 60 mg 04/14/25 09:00 04/29/25 09:02 Duloxetine Hcl 30 Mg Capsule.Dr PO 60 mg DAILY DANIELE Administration Folic Acid 1 mg 03/30/25 09:00 04/29/25 09:02 Folic Acid 1 Mg Tablet PO 1 mg DAILY DANIELE Administration Heparin Sodium (Beef Lung) 50 units 03/30/25 09:00 04/29/25 09:04 Heparin Flush 50 Units/5 Ml Syringe IV PUSH 50 units QAM DANIELE Administration Heparin Sodium (Beef Lung) 50 units 03/29/25 23:50 Heparin Flush 50 Units/5 Ml Syringe IV PUSH PRN PRN after intermittent infusion Heparin Sodium (Beef Lung) 50 units 03/29/25 23:50 04/26/25 05:15 Heparin Flush 50 Units/5 Ml Syringe IV PUSH 50 units PRN PRN Administration after blood draws Heparin Sodium (Porcine) 500 units 03/29/25 23:50 04/29/25 05:38 Heparin Sodium Lock Flush 500 Units/5 Ml Syringe IV PUSH 500 units PRN PRN Administration see comments below Potassium Chloride 40 meq/ 520 mls @ 130 mls/hr 04/29/25 06:36 04/29/25 09:03 Sodium Chloride IVPB 04/29/25 10:35 130 mls/hr ONCE ONE Administration Loratadine 10 mg 03/30/25 09:00 04/29/25 09:02 Loratadine 10 Mg Tablet PO 10 mg QAM DANIELE Administration Menthol/Methyl Salicylate 1 applic 04/06/25 02:01 04/19/25 23:09 Menthol 10% / Methyl Salicylate 15% 57 Gm Tube TOPICAL 1 applic BID PRN Administration Muscle/Joint Pain Metoprolol Tartrate 25 mg 04/11/25 21:00 04/29/25 09:02 Metoprolol Tartrate 25 Mg Tablet PO 25 mg Q12HR DANIELE Administration Midodrine 10 mg 04/03/25 23:20 04/29/25 09:02 Midodrine Hcl 10 Mg Tablet PO 10 mg TID DANIELE Administration Mirtazapine 7.5 mg 04/28/25 21:00 04/28/25 21:46 Mirtazapine 7.5 Mg Tablet PO 7.5 mg HS DANIELE Administration Montelukast Sodium 10 mg 03/29/25 21:00 04/28/25 21:46 Montelukast Sodium 10 Mg Tablet PO 10 mg HS DANIELE Administration Ondansetron HCl 4 mg 04/20/25 10:08 04/25/25 13:41 Ondansetron Inj 4 Mg/2 Ml Vial IV PUSH 4 mg Q4H PRN Administration Nausea And Vomiting Oxycodone/Acetaminophen 1 tablet 04/22/25 18:33 04/28/25 21:47 Oxycodone/Acetaminophen (*Crx) 5-325 Mg Tablet PO 1 tablet Q6H PRN Administration Pain Rated 7-10 Pantoprazole Sodium 40 mg 04/07/25 21:00 04/29/25 09:02 Pantoprazole 40 Mg Tablet PO 40 mg Q12HR DANIELE Administration Polyethylene Glycol 17 gm 04/02/25 09:00 04/29/25 09:03 Polyethylene Glycol 3350 17 Gm Powd.Pack PO Not Given QAM DANIELE Fluticasone/Salmeterol 2 puff 03/29/25 20:00 04/29/25 08:19 Fluticasone/Salmeterol 45-21 Mcg Inhaler 1 Puff INHALATION 2 puff Q12HRT DANIELE Administration Senna 17.2 mg 03/30/25 09:00 04/02/25 08:36 Sennosides 8.6 Mg Tablet PO 17.2 mg On Hold: 04/02/25 08:45 BID DANIELE Administration Sodium Chloride 10 ml 03/30/25 06:00 04/29/25 06:46 Central Line Flush IV PUSH 10 ml Q8HR DANIELE Administration Radiology Results: ITS Impressions Head/Neck CTA 03/29/25 08:51 IMPRESSION: CTA NECK: 1. No ICA stenosis or other acute arterial abnormality. 2. Lytic bony metastatic disease C2, C5. 3. Lytic bony metastatic disease right scapula with large associated soft tissue component. CTA HEAD: 1. No large vessel arterial occlusive disease or other acute arterial abnormality. Venous Doppler Study 03/31/25 17:18 IMPRESSION: 1: No lower extremity deep venous thrombosis. Shoulder X-Ray 04/11/25 15:25 Impression: No acute fracture or malalignment. Head CT 04/23/25 14:10 Impression: 1.No acute intracranial abnormality. Chest/Abdomen/Pelvis CT 04/23/25 15:33 IMPRESSION: 1. [Multiple pulmonary nodules are noted in the lungs bilaterally measuring up to 12 mm. There is a enlarged precarinal lymph node measuring 16 mm. This may represent metastases. Multiple liver masses are noted suggestive of malignancy. Brain MRI 04/27/25 07:37 IMPRESSION: 1. Stable mild nonspecific cerebral white matter disease and pontine disease, which likely represents chronic small vessel ischemic disease. Chest X-Ray 04/28/25 18:59 IMPRESSION: Syncytial groundglass opacity bilaterally with right pleural effusion suggestive of pulmonary edema. Labs Labs: Laboratory Results - last 24 hr 04/29/25 04/29/25 05:45 05:46 WBC 21.2 H RBC 2.84 L Hgb 8.3 L Hct 25.9 L MCV 91.2 MCH 29.2 MCHC 32.0 RDW 18.6 H Plt Count 352 MPV 9.6 Immature Gran % (Auto) 2.6 H Neut % (Auto) 88.2 H Lymph % (Auto) 3.4 L [place] % (Auto) 5.3 Eos % (Auto) 0.2 Baso % (Auto) 0.3 Lymph # (Auto) 0.72 L [place] # (Auto) 1.1 H Eos # (Auto) 0.0 Baso # (Auto) 0.1 Abs Immat Gran (auto) 0.56 H Absolute Neuts (auto) 18.6 H Absolute Nucleated RBC 0.000 Band Neutrophils % Not Reportable Nucleated RBC % 0.0 Platelet Estimate Adequate Hypochromasia 1+ Anisocytosis 1+ Ovalocytes 1+ [place] Cells 2+ Acanthocytes (Spur) 1+ Schistocytes 1+ Sodium 133 L Potassium 2.7 L* Chloride 103 Carbon Dioxide 23 Anion Gap 7 BUN < 2 L Creatinine 0.54 L Estim Creat Clear Calc 79 Estimated GFR > 60 Glucose 80 Calcium 9.1 Magnesium 1.7 Total Bilirubin 0.7 AST 27 ALT 18 Alkaline Phosphatase 305 H Total Protein 5.5 L Albumin 2.3 L
--- NOTE | 2025-04-29 13:38 | PM.IMPN ---
Progress Note: A&P Assessment and Plan (1) Patent foramen ovale with right to left shunt: Code(s): Q21.12 - Patent foramen ovale Status: Acute (2) Cardiomyopathy: Code(s): I42.9 - Cardiomyopathy, unspecified Status: Acute (3) Hypercalcemia of malignancy: Code(s): E83.52 - Hypercalcemia Status: Acute (4) Hypokalemia: Code(s): E87.6 - Hypokalemia Status: Acute (5) Urinary tract infection: Code(s): N39.0 - Urinary tract infection, site not specified Status: Acute (6) Anemia: Code(s): D64.9 - Anemia, unspecified Status: Acute (7) Ovarian cancer: Code(s): C56.9 - Malignant neoplasm of unspecified ovary Status: Acute (8) Altered mental status: Code(s): R41.82 - Altered mental status, unspecified Status: Acute Plan 59-year-old female with past medical history of stage IV ovarian cancer with metastasis presenting with worsening mental status. She had recent clearly experiencing weakness, reduced appetite, slurring speech These symptoms were a significant change from the patient's baseline just days prior. Patient has been treated with chemo, radiation in the past, currently on maintenance therapy with Keytruda. , CT head without contrast showed age indeterminate focus of left frontal subcortical ischemia, no hemorrhage, CTA head and neck last night showed no ICA stenosis or other acute arterial abnormality, lytic bony metastatic disease C2, C5, lytic bony metastatic disease right scapula with large associated soft tissue component, no large vessel arterial occlusion disease or other acute arterial abnormality. Blood workup showed calcium level of 14.4 . Received calcitonin, zoledronic acid hypercalcemia. 1. Altered mental status/acute encephalopathy: CT with age indeterminate focus of left frontal subcortical ischemia MRI brain unremarkable Echocardiogram with EF of 40-45% with regional wall motion abnormality, PFO Mental status has improved Neurology following continues to be confused. 2. UTI: Completed course of ceftriaxone However UA positive for UTI again Restarted ceftriaxone 04/11/2025 Follow urine culture Febrile again 04/12/2025. Switch ceftriaxone to cefepime Follow urine culture Which came back as Enterococcus ampicillin resistant status post vancomycin IV Repeat urine culture 04/19 is negative. Patient completed Zosyn 04/27/2025 Leukocytosis still persists. Could be related to underlying metastatic ovarian cancer # Vaginitis received a dose of fluconazole 04/13/2025 3. Hypercalcemia: Likely secondary to malignancy Received zoledronic acid, calcitonin, IV fluids Hypercalcemia has resolved 4. Anemia: Status post 2 units of PRBC on 04/04 Hgb has been stable until Hgb 6.7 requiring one unit RPBCs on 04/25. No signs of bleeding. [place] related to metastatic ovarian cancer Hgb stable. Follow. 5. History of metastatic ovarian cancer: Patient follows up with Oncology at [facility] MRI brain 04/[address] Ch/A/P shoiwng multiple liver and lung masses as well as large precarinal LN Oncology consulted. CA 125 elevated. 6.) Cardiomyopathy: Patent foramen ovale Echo showing EF 40-45% with regional wall motion abnormality and PFO with R-->L shunt Cardiology consulted. LE venous doppler negative for DVT so unlikely paradoxical CVA. Metoprolol tartrate started. Maxide stopped and losartan added Due to HoTN and anemia, Plavix stopped. Continue tele monitoring. Continue statin. Verapamil has been stopped Currently on room air 7. History of hypertension: Continue with losartan, metoprolol Verapamil has been stopped #Lice in hair treated with permethrin # disposition to [facility] when bed available # pneumonia: ID on board CT chest abdomen pelvis performed which showed multiple pulmonary nodules noted in the lungs bilaterally measuring up to 12 mm. May represent metastatic disease. Multiple liver masses are also noted suggestive of malignancy. Otherwise lungs are clear. # depression # headache recent CT head was negative. Repeat MRI brain negative. She does have metastasis to cervical spine 8. Code status: Full 9. DVT prophylaxis: SCDs 9. Disposition: Pending placement. Goals of care discussion extensively with daughter had other over the phone 04/29/2025. They are waiting to see if the Remeron improves her appetite. All questions answered. Subjective Date/time seen: 04/29/25 13:38 Interval history: 59yo female with HTN and metastatic ovarian CA here for AMS. Assuming care. Chart reviewed. Patient is alert but confused and unable to provide hx. Review of Systems Review of Systems: ROS unobtainable: Yes unobtainable due to medical condition Exam Narrative: AF 97.7 136/65 82 16 96% ra Gen -no acute distress Chest - lungs clear anteriorly. port right upper chest CV - RRR. S1-S2. Abd - soft, ND. +BS Ext - no pedal edema Psych- alert but confused Skin - Warm and dry. Objective Data Vital Signs Vital Signs: Vital Signs - 24 hr 04/28/25 14:00 04/28/25 18:26 04/28/25 18:39 Temperature 97.6 F Pulse Rate 102 H 106 H 105 H Respiratory Rate 19 22 H 22 H Blood Pressure 145/85 H Pulse Oximetry 97 Oxygen Delivery 04/28/25 20:00 04/28/25 21:46 04/28/25 21:55 Temperature 98.8 F Pulse Rate 116 H 116 H Respiratory Rate 20 Blood Pressure 140/74 Pulse Oximetry 95 Oxygen Delivery Room Air 04/28/25 23:57 04/29/25 00:05 04/29/25 06:00 Temperature 97.7 F Pulse Rate 102 H 106 H 91 Respiratory Rate 24 H 24 H 18 Blood Pressure 136/65 Pulse Oximetry 96 Oxygen Delivery 04/29/25 08:20 04/29/25 09:00 04/29/25 12:00 Temperature Pulse Rate 99 82 Respiratory Rate 16 Blood Pressure Pulse Oximetry Oxygen Delivery Room Air Intake/Output Intake/Output: Intake & Output 04/26/25 04/27/25 04/28/25 04/29/25 23:59 23:59 23:59 23:59 Intake Total 2187.9 4355.0 795.8 350 Output Total 650 0 1800 Balance 2187.9 3705.0 795.8 -1450 Meds/Results Medications: Active Medications Generic Name Dose Route Start Last Admin Trade Name Freq PRN Reason Stop Dose Admin Acetaminophen 650 mg 03/29/25 19:45 04/29/25 09:02 Acetaminophen 325 Mg Tablet PO 650 mg Q4H PRN Administration Mild Pain (1-3) or Fever Albuterol 2.5 mg 03/29/25 21:50 04/28/25 23:57 Albuterol Sulfate Neb 2.5 Mg/3 Ml Inh INHALATION 2.5 mg Q4-6H PRN Administration Shortness Of Breath Albuterol 2 puff 04/03/25 17:11 04/28/25 09:15 Albuterol Sulfate (*Sp) Aerosol 1 Puff INHALATION 2 puff Q6HRT PRN Administration Shortness Of Breath Or Wheezing Alteplase, Recombinant 2 mg 04/16/25 09:02 04/16/25 10:24 Alteplase 2 Mg Vial (Cathflo) IV PUSH 2 mg ONCE PRN Administration Line Occlusion Atorvastatin Calcium 40 mg 03/30/25 09:00 04/29/25 09:02 Atorvastatin 40 Mg Tablet PO 40 mg DAILY DANIELE Administration Clonazepam 0.5 mg 04/29/25 07:05 04/29/25 09:02 Clonazepam (*Crx) 0.5 Mg Tablet PO 0.5 mg Q8H PRN Administration Anxiety Duloxetine HCl 60 mg 04/14/25 09:00 04/29/25 09:02 Duloxetine Hcl 30 Mg Capsule.Dr PO 60 mg DAILY DANIELE Administration Folic Acid 1 mg 03/30/25 09:00 04/29/25 09:02 Folic Acid 1 Mg Tablet PO 1 mg DAILY DANIELE Administration Heparin Sodium (Beef Lung) 50 units 03/30/25 09:00 04/29/25 09:04 Heparin Flush 50 Units/5 Ml Syringe IV PUSH 50 units QAM DANIELE Administration Heparin Sodium (Beef Lung) 50 units 03/29/25 23:50 Heparin Flush 50 Units/5 Ml Syringe IV PUSH PRN PRN after intermittent infusion Heparin Sodium (Beef Lung) 50 units 03/29/25 23:50 04/26/25 05:15 Heparin Flush 50 Units/5 Ml Syringe IV PUSH 50 units PRN PRN Administration after blood draws Heparin Sodium (Porcine) 500 units 03/29/25 23:50 04/29/25 05:38 Heparin Sodium Lock Flush 500 Units/5 Ml Syringe IV PUSH 500 units PRN PRN Administration see comments below Loratadine 10 mg 03/30/25 09:00 04/29/25 09:02 Loratadine 10 Mg Tablet PO 10 mg QAM DANIELE Administration Menthol/Methyl Salicylate 1 applic 04/06/25 02:01 04/19/25 23:09 Menthol 10% / Methyl Salicylate 15% 57 Gm Tube TOPICAL 1 applic BID PRN Administration Muscle/Joint Pain Metoprolol Tartrate 25 mg 04/11/25 21:00 04/29/25 09:02 Metoprolol Tartrate 25 Mg Tablet PO 25 mg Q12HR DANIELE Administration Midodrine 10 mg 04/03/25 23:20 04/29/25 12:40 Midodrine Hcl 10 Mg Tablet PO Not Given TID DANIELE Mirtazapine 7.5 mg 04/28/25 21:00 04/28/25 21:46 Mirtazapine 7.5 Mg Tablet PO 7.5 mg HS DANIELE Administration Montelukast Sodium 10 mg 03/29/25 21:00 04/28/25 21:46 Montelukast Sodium 10 Mg Tablet PO 10 mg HS DANIELE Administration Ondansetron HCl 4 mg 04/20/25 10:08 04/25/25 13:41 Ondansetron Inj 4 Mg/2 Ml Vial IV PUSH 4 mg Q4H PRN Administration Nausea And Vomiting Oxycodone/Acetaminophen 1 tablet 04/22/25 18:33 04/28/25 21:47 Oxycodone/Acetaminophen (*Crx) 5-325 Mg Tablet PO 1 tablet Q6H PRN Administration Pain Rated 7-10 Pantoprazole Sodium 40 mg 04/07/25 21:00 04/29/25 09:02 Pantoprazole 40 Mg Tablet PO 40 mg Q12HR DANIELE Administration Polyethylene Glycol 17 gm 04/02/25 09:00 04/29/25 09:03 Polyethylene Glycol 3350 17 Gm Powd.Pack PO Not Given QAM DANIELE Fluticasone/Salmeterol 2 puff 03/29/25 20:00 04/29/25 08:19 Fluticasone/Salmeterol 45-21 Mcg Inhaler 1 Puff INHALATION 2 puff Q12HRT DANIELE Administration Senna 17.2 mg 03/30/25 09:00 04/02/25 08:36 Sennosides 8.6 Mg Tablet PO 17.2 mg On Hold: 04/02/25 08:45 BID DANIELE Administration Sodium Chloride 10 ml 03/30/25 06:00 04/29/25 12:40 Central Line Flush IV PUSH Not Given Q8HR DANIELE Radiology Results: ITS Impressions Head/Neck CTA 03/29/25 08:51 IMPRESSION: CTA NECK: 1. No ICA stenosis or other acute arterial abnormality. 2. Lytic bony metastatic disease C2, C5. 3. Lytic bony metastatic disease right scapula with large associated soft tissue component. CTA HEAD: 1. No large vessel arterial occlusive disease or other acute arterial abnormality. Venous Doppler Study 03/31/25 17:18 IMPRESSION: 1: No lower extremity deep venous thrombosis. Shoulder X-Ray 04/11/25 15:25 Impression: No acute fracture or malalignment. Head CT 04/23/25 14:10 Impression: 1.No acute intracranial abnormality. Chest/Abdomen/Pelvis CT 04/23/25 15:33 IMPRESSION: 1. [Multiple pulmonary nodules are noted in the lungs bilaterally measuring up to 12 mm. There is a enlarged precarinal lymph node measuring 16 mm. This may represent metastases. Multiple liver masses are noted suggestive of malignancy. Brain MRI 04/27/25 07:37 IMPRESSION: 1. Stable mild nonspecific cerebral white matter disease and pontine disease, which likely represents chronic small vessel ischemic disease. Chest X-Ray 04/28/25 18:59 IMPRESSION: Syncytial groundglass opacity bilaterally with right pleural effusion suggestive of pulmonary edema. Labs Labs: Laboratory Results - last 24 hr 04/28/25 04/29/25 04/29/25 05:22 05:45 05:46 WBC 21.2 H RBC 2.84 L Hgb 8.3 L Hct 25.9 L MCV 91.2 MCH 29.2 MCHC 32.0 RDW 18.6 H Plt Count 352 MPV 9.6 Immature Gran % (Auto) 2.6 H Neut % (Auto) 88.2 H Lymph % (Auto) 3.4 L [place] % (Auto) 5.3 Eos % (Auto) 0.2 Baso % (Auto) 0.3 Lymph # (Auto) 0.72 L [place] # (Auto) 1.1 H Eos # (Auto) 0.0 Baso # (Auto) 0.1 Abs Immat Gran (auto) 0.56 H Absolute Neuts (auto) 18.6 H Absolute Nucleated RBC 0.000 Band Neutrophils % Not Reportable Nucleated RBC % 0.0 Platelet Estimate Adequate Hypochromasia 1+ Anisocytosis 1+ Ovalocytes 1+ [place] Cells 2+ Acanthocytes (Spur) 1+ Schistocytes 1+ Sodium 133 L Potassium 2.7 L* Chloride 103 Carbon Dioxide 23 Anion Gap 7 BUN < 2 L Creatinine 0.54 L Estim Creat Clear Calc 79 Estimated GFR > 60 Glucose 80 Calcium 9.1 Magnesium 1.7 Total Bilirubin 0.7 AST 27 ALT 18 Alkaline Phosphatase 305 H Total Protein 5.5 L Albumin 2.3 L [place] 125 Antigen 160.0 H
[2025-04-29 14:38] LABS: Magnesium 2.2 mg/dL (1.6-2.3); Potassium 4.1 mmol/L (3.4-5.0)
[2025-04-29 17:08] LABS: Add Urine Microscopic? YES; Appearance Urine Clear (Clear); Glucose Urine UA Negative (Negative); Leukocyte Esterase Ur Trace LEU/UL (Negative); Nitrate Urine Negative (Negative); Non Pathogenic Casts 0-2; Specific Grav Ur 1.009 (1.001-1.035)
[2025-04-29] MEDS: oxyCODONE/ACETAMINOPHEN (*CRX) 5-325 MG TABLET 1 TABLET PO (17:10)
[2025-04-29] MEDS: ALBUTEROL SULFATE NEB 2.5 MG/3 ML INH INHALATION (19:31)
[2025-04-29] MEDS: MONTELUKAST SODIUM 10 MG TABLET PO (20:26)
[2025-04-29] MEDS: MIRTAZAPINE 7.5 MG TABLET PO (20:26)
--- NOTE | 2025-04-29 23:02 | PC.NURSE ---
I ACCIDENTLY CHARTED HEPARIN FLUSH FROM EARLIER THIS AM UNDER Melinda MACKAY RN NAME
[2025-04-30] VITALS (15 sets, daily range): BP systolic 146–151; BP diastolic 73–78; PULSE 83–120; RESP 18–24; TEMP 37.1–37.3; O2SAT 92–96
[2025-04-30] MEDS: oxyCODONE/ACETAMINOPHEN (*CRX) 5-325 MG TABLET 1 TABLET PO (04:34)
[2025-04-30 04:56] LABS: Hematocrit 26.8 % (37.0-47.0); Hemoglobin 8.6 g/dL (12.0-15.0); Immature Granulocyte Percent A 2.2 % (0-0.5); Lymphocytes Absolute Auto 0.84 K/mm3 (0.9-3.2); Mean Corpuscular HGB Conc 32.1 g/dl (32-36); Mean Corpuscular Hemoglobin 29.3 pg (26-34); Mean Corpuscular Volume 91.2 fl (80-100); Nucleated Red Blood Cells Absolute Auto 0.000 K/mm3 (0.0-0.012); Nucleated Red Blood Cells Perc 0.0 % (0.0-0.2); Platelet Count Result 355 k/mm3 (150-375); Red Blood Count 2.94 M/mm3 (4.2-5.4); White Blood Count 23.0 K/mm3 (4.5-10.0)
[2025-04-30 05:07] LABS: Ammonia 28 umol/L (9-30)
[2025-04-30 05:08] LABS: Alanine Aminotransferase 23 U/L (6-35); Albumin Level 2.5 g/dL (3.5-5.1); Alkaline Phosphatase 390 U/L (38-126); Anion Gap 6 mmol/L (4-12); Aspartate Amino Transferase 47 U/L (14-36); Bilirubin,Total 0.6 mg/dL (0.2-1.3); Blood Urea Nitrogen 3 mg/dL (7-17); Calcium 9.9 mg/dL (8.4-10.2); Carbon Dioxide 26 mmol/L (22-30); Chloride 101 mmol/L (98-107); Estimated CRCL calculation 84 ml/min; Estimated Glomerular Filt Rate > 60; Glucose 92 mg/dL (65-110); Magnesium 2.0 mg/dL (1.6-2.3); Potassium 3.2 mmol/L (3.4-5.0); Sodium 133 mmol/L (137-145); Total Protein 5.9 g/dL (6.3-8.2)
[2025-04-30 05:34] LABS: Anisocytosis 1+; Burr Cells Occasional; Hypochromasia 1+; Ovalocytes Occasional; Schistocytes None Seen
[2025-04-30] MEDS: CENTRAL LINE FLUSH 10 ML IV PUSH ×3 (06:04→21:02)
[2025-04-30] MEDS: METOPROLOL TARTRATE 25 MG TABLET PO ×2 (08:24→20:55)
[2025-04-30] MEDS: FOLIC ACID 1 MG TABLET PO (08:24)
[2025-04-30] MEDS: MIDODRINE HCL 10 MG TABLET PO ×2 (08:24→12:43)
[2025-04-30] MEDS: POTASSIUM CHLORIDE 20 MEQ ER TABLET PO (08:24)
[2025-04-30] MEDS: PANTOPRAZOLE 40 MG TABLET PO ×2 (08:24→20:57)
[2025-04-30] MEDS: ATORVASTATIN 40 MG TABLET PO (08:24)
[2025-04-30] MEDS: LORATADINE 10 MG TABLET PO (08:24)
[2025-04-30] MEDS: POTASSIUM/PHOSPHORUS/SODIUM 1.5 GM PACKET 1 PACKET PO (08:25)
[2025-04-30] MEDS: FLUTICASONE/SALMETEROL 45-21 MCG INHALER 1 PUFF 2 PUFF INHALATION ×2 (09:19→21:14)
--- NOTE | 2025-04-30 10:46 | P.PNIM_ITS ---
Progress Note: A&P Assessment and Plan (1) Altered mental status: Code(s): R41.82 - Altered mental status, unspecified Status: Acute (2) Urinary tract infection: Code(s): N39.0 - Urinary tract infection, site not specified Status: Acute (3) Hypercalcemia of malignancy: Code(s): E83.52 - Hypercalcemia Status: Acute (4) Anemia: Code(s): D64.9 - Anemia, unspecified Status: Acute (5) Ovarian cancer: Code(s): C56.9 - Malignant neoplasm of unspecified ovary Status: Acute (6) Cardiomyopathy: Code(s): I42.9 - Cardiomyopathy, unspecified Status: Acute (7) Patent foramen ovale with right to left shunt: Code(s): Q21.12 - Patent foramen ovale Status: Acute (8) Hypokalemia: Code(s): E87.6 - Hypokalemia Status: Acute (9) Pneumonia: Code(s): J18.9 - Pneumonia, unspecified organism Status: Acute (10) Leukocytosis: Code(s): D72.829 - Elevated white blood cell count, unspecified Status: Acute (11) Vaginitis: Code(s): N76.0 - Acute vaginitis Status: Acute Plan 59-year-old female with past medical history of stage IV ovarian cancer with metastasis presenting with worsening mental status. She had recent clearly experiencing weakness, reduced appetite, slurring speech These symptoms were a significant change from the patient's baseline just days prior. Patient has been treated with chemo, radiation in the past, currently on maintenance therapy with Keytruda. , CT head without contrast showed age indeterminate focus of left frontal subcortical ischemia, no hemorrhage, CTA head and neck last night showed no ICA stenosis or other acute arterial abnormality, lytic bony metastatic disease C2, C5, lytic bony metastatic disease right scapula with large associated soft tissue component, no large vessel arterial occlusion disease or other acute arterial abnormality. Blood workup showed calcium level of 14.4 . Received calcitonin, zoledronic acid hypercalcemia. Altered mental status/acute encephalopathy: CT with age indeterminate focus of left frontal subcortical ischemia MRI brain unremarkable Echocardiogram with EF of 40-45% with regional wall motion abnormality, PFO Mental status was improving but has worsened since. Repeat brain MRI without contrast 04/27 again showing no acute findings. Neurology following Continues to be confused. Psych consulted and medications adjusted. Still with poor oral intake. UTI: Completed course of ceftriaxone However UA positive for UTI again Restarted ceftriaxone 04/11/2025 Follow urine culture Febrile again 04/12/2025. Switch ceftriaxone to cefepime Follow urine culture Which came back as Enterococcus - ampicillin resistant so treated with vancomycin Repeat urine culture 04/19 is negative. Vaginitis: Received a dose of fluconazole 04/13/2025 PNA: MRSA nasal screen was negative ID consulted and appreciate their input Treated with Zosyn and completed a course on 04/27 Leukocytosis: WBC persistently elevated and worse today off abx. CDiff negative Repeat Cx off abx drawn and are pending Could be related to underlying metastatic ovarian cancer Hypercalcemia: Likely secondary to malignancy Received zoledronic acid, calcitonin, IV fluids Hypercalcemia has resolved Anemia: Status post 2 units of PRBC on 04/04 Hgb has been stable until Hgb 6.7 requiring one unit RPBCs on 04/25. No signs of bleeding. [place] related to metastatic ovarian cancer Hgb stable. Follow. History of metastatic ovarian cancer: Patient follows up with Oncology at [facility] MRI brain with contrast showing no acute findings 03/30 CTA head/neck showing C2 and C5 lytic lesions and right scapula MRI brain without contrast 04/[address] Ch/A/P showing multiple liver and lung masses as well as large precarinal LN Oncology consulted. CA 125 elevated. Family deciding on hospice care Cardiomyopathy/PFO: Echo showing EF 40-45% with regional wall motion abnormality and PFO with R-->L shunt Cardiology consulted. LE venous doppler negative for DVT so unlikely paradoxical CVA. Metoprolol tartrate started. Maxide and verapamil stopped and losartan added Due to HoTN and anemia, Plavix stopped and medication adjusted. Continue tele monitoring. Continue statin. Currently on room air History of hypertension: Continue with metoprolol Verapamil has been stopped Lice: Lice in hair that was treated with permethrin Code status: Full DVT prophylaxis: SCDs Disposition: Pending placement. Goals of care discussion extensively with daughter had other over the phone 04/29/2025. They are waiting to see if the Remeron improves her appetite. All questions answered. Subjective Date/time seen: 04/30/25 10:46 Interval history: 59yo female with HTN and metastatic ovarian CA here for AMS. Patient is alert and somewhat oriented but remains confused and unable to provide a meaningful hx. Review of Systems Review of Systems: ROS unobtainable: Yes unobtainable due to mental status Exam Narrative: AF 99.2 151/73 83 20 92% ra Gen - NARD Chest - lungs clear anteriorly. Right upper chest port accessed CV - RRR. S1-S2. Abd - soft, ND. +BS Ext - trace-1+ pedal edema Psych - somnolent but arouses. oriented to location and year but then perseverates. mild garbled speech Skin - Warm and dry. Objective Data Vital Signs Vital Signs: Vital Signs - 24 hr 04/29/25 12:00 04/29/25 14:00 04/29/25 16:00 Temperature 97.5 F L Pulse Rate 82 98 96 Respiratory Rate 20 Blood Pressure 127/57 L Pulse Oximetry 97 Oxygen Delivery Fraction of Inspired Oxygen 04/29/25 19:31 04/29/25 19:31 04/29/25 20:00 Temperature Pulse Rate 97 97 Respiratory Rate 18 18 Blood Pressure Pulse Oximetry 99 Oxygen Delivery Room Air Room Air Fraction of Inspired Oxygen 21 04/29/25 20:00 04/29/25 20:25 04/29/25 21:36 Temperature 98.1 F Pulse Rate 109 H 107 H 107 H Respiratory Rate 18 Blood Pressure 145/87 H Pulse Oximetry 97 Oxygen Delivery Fraction of Inspired Oxygen 04/30/25 00:00 04/30/25 04:00 04/30/25 05:00 Temperature 99.2 F Pulse Rate 116 H 108 H 112 H Respiratory Rate 18 Blood Pressure 151/73 H Pulse Oximetry 93 Oxygen Delivery Fraction of Inspired Oxygen 04/30/25 08:00 04/30/25 08:24 04/30/25 08:25 Temperature Pulse Rate 102 H 106 H Respiratory Rate Blood Pressure Pulse Oximetry Oxygen Delivery Room Air Fraction of Inspired Oxygen 04/30/25 09:20 04/30/25 09:20 Temperature Pulse Rate 83 83 Respiratory Rate 20 20 Blood Pressure Pulse Oximetry 92 Oxygen Delivery Room Air Fraction of Inspired Oxygen Intake/Output Intake/Output: Intake & Output 04/27/25 04/28/25 04/29/25 04/30/25 23:59 23:59 23:59 23:59 Intake Total 4355.0 795.8 600 250 Output Total 650 0 2600 600 Balance 3705.0 795.8 -2000 -350 Meds/Results Medications: Active Medications Generic Name Dose Route Start Last Admin Trade Name Janis PRN Reason Stop Dose Admin Acetaminophen 650 mg 03/29/25 19:45 04/29/25 09:02 Acetaminophen 325 Mg Tablet PO 650 mg Q4H PRN Administration Mild Pain (1-3) or Fever Albuterol 2.5 mg 03/29/25 21:50 04/29/25 19:31 Albuterol Sulfate Neb 2.5 Mg/3 Ml Inh INHALATION 2.5 mg Q4-6H PRN Administration Shortness Of Breath Albuterol 2 puff 04/03/25 17:11 04/28/25 09:15 Albuterol Sulfate (*Sp) Aerosol 1 Puff INHALATION 2 puff Q6HRT PRN Administration Shortness Of Breath Or Wheezing Alteplase, Recombinant 2 mg 04/16/25 09:02 04/16/25 10:24 Alteplase 2 Mg Vial (Cathflo) IV PUSH 2 mg ONCE PRN Administration Line Occlusion Atorvastatin Calcium 40 mg 03/30/25 09:00 04/30/25 08:24 Atorvastatin 40 Mg Tablet PO 40 mg DAILY DANIELE Administration Clonazepam 0.5 mg 04/29/25 07:05 04/29/25 20:28 Clonazepam (*Crx) 0.5 Mg Tablet PO 0.5 mg Q8H PRN Administration Anxiety Duloxetine HCl 60 mg 04/14/25 09:00 04/30/25 08:24 Duloxetine Hcl 30 Mg Capsule.Dr PO 60 mg DAILY DANIELE Administration Folic Acid 1 mg 03/30/25 09:00 04/30/25 08:24 Folic Acid 1 Mg Tablet PO 1 mg DAILY DANIELE Administration Heparin Sodium (Beef Lung) 50 units 03/30/25 09:00 04/30/25 08:25 Heparin Flush 50 Units/5 Ml Syringe IV PUSH 50 units QAM DANIELE Administration Heparin Sodium (Beef Lung) 50 units 03/29/25 23:50 Heparin Flush 50 Units/5 Ml Syringe IV PUSH PRN PRN after intermittent infusion Heparin Sodium (Beef Lung) 50 units 03/29/25 23:50 04/30/25 04:49 Heparin Flush 50 Units/5 Ml Syringe IV PUSH 50 units PRN PRN Administration after blood draws Heparin Sodium (Porcine) 500 units 03/29/25 23:50 04/11/25 23:05 Heparin Sodium Lock Flush 500 Units/5 Ml Syringe IV PUSH 500 units PRN PRN Administration see comments below Loratadine 10 mg 03/30/25 09:00 04/30/25 08:24 Loratadine 10 Mg Tablet PO 10 mg QAM DANIELE Administration Menthol/Methyl Salicylate 1 applic 04/06/25 02:01 04/19/25 23:09 Menthol 10% / Methyl Salicylate 15% 57 Gm Tube TOPICAL 1 applic BID PRN Administration Muscle/Joint Pain Metoprolol Tartrate 25 mg 04/11/25 21:00 04/30/25 08:24 Metoprolol Tartrate 25 Mg Tablet PO 25 mg Q12HR DANIELE Administration Midodrine 10 mg 04/03/25 23:20 04/30/25 08:24 Midodrine Hcl 10 Mg Tablet PO 10 mg TID DANIELE Administration Mirtazapine 7.5 mg 04/28/25 21:00 04/29/25 20:26 Mirtazapine 7.5 Mg Tablet PO 7.5 mg HS DANIELE Administration Montelukast Sodium 10 mg 03/29/25 21:00 04/29/25 20:26 Montelukast Sodium 10 Mg Tablet PO 10 mg HS DANIELE Administration Ondansetron HCl 4 mg 04/20/25 10:08 04/25/25 13:41 Ondansetron Inj 4 Mg/2 Ml Vial IV PUSH 4 mg Q4H PRN Administration Nausea And Vomiting Oxycodone/Acetaminophen 1 tablet 04/22/25 18:33 04/30/25 04:34 Oxycodone/Acetaminophen (*Crx) 5-325 Mg Tablet PO 1 tablet Q6H PRN Administration Pain Rated 7-10 Pantoprazole Sodium 40 mg 04/07/25 21:00 04/30/25 08:24 Pantoprazole 40 Mg Tablet PO 40 mg Q12HR DANIELE Administration Polyethylene Glycol 17 gm 04/02/25 09:00 04/30/25 08:25 Polyethylene Glycol 3350 17 Gm Powd.Pack PO 17 gm QAM DANIELE Administration Fluticasone/Salmeterol 2 puff 03/29/25 20:00 04/30/25 09:19 Fluticasone/Salmeterol 45-21 Mcg Inhaler 1 Puff INHALATION 2 puff Q12HRT DANIELE Administration Senna 17.2 mg 03/30/25 09:00 04/02/25 08:36 Sennosides 8.6 Mg Tablet PO 17.2 mg On Hold: 04/02/25 08:45 BID DANIELE Administration Sodium Chloride 10 ml 03/30/25 06:00 04/30/25 06:04 Central Line Flush IV PUSH 10 ml Q8HR DANIELE Administration Radiology Results: ITS Impressions Head/Neck CTA 03/29/25 08:51 IMPRESSION: CTA NECK: 1. No ICA stenosis or other acute arterial abnormality. 2. Lytic bony metastatic disease C2, C5. 3. Lytic bony metastatic disease right scapula with large associated soft tissue component. CTA HEAD: 1. No large vessel arterial occlusive disease or other acute arterial abnormality. Venous Doppler Study 03/31/25 17:18 IMPRESSION: 1: No lower extremity deep venous thrombosis. Shoulder X-Ray 04/11/25 15:25 Impression: No acute fracture or malalignment. Head CT 04/23/25 14:10 Impression: 1.No acute intracranial abnormality. Chest/Abdomen/Pelvis CT 04/23/25 15:33 IMPRESSION: 1. [Multiple pulmonary nodules are noted in the lungs bilaterally measuring up to 12 mm. There is a enlarged precarinal lymph node measuring 16 mm. This may represent metastases. Multiple liver masses are noted suggestive of malignancy. Brain MRI 04/27/25 07:37 IMPRESSION: 1. Stable mild nonspecific cerebral white matter disease and pontine disease, which likely represents chronic small vessel ischemic disease. Chest X-Ray 04/28/25 18:59 IMPRESSION: Syncytial groundglass opacity bilaterally with right pleural effusion suggestive of pulmonary edema. Labs Labs: Laboratory Results - last 24 hr 04/29/25 04/29/25 04/30/25 13:53 16:54 04:45 WBC 23.0 H RBC 2.94 L Hgb 8.6 L Hct 26.8 L MCV 91.2 MCH 29.3 MCHC 32.1 RDW 18.5 H Plt Count 355 MPV 9.3 Immature Gran % (Auto) 2.2 H Neut % (Auto) 88.1 H Lymph % (Auto) 3.7 L [place] % (Auto) 5.4 Eos % (Auto) 0.3 Baso % (Auto) 0.3 Lymph # (Auto) 0.84 L [place] # (Auto) 1.2 H Eos # (Auto) 0.1 Baso # (Auto) 0.1 Abs Immat Gran (auto) 0.51 H Absolute Neuts (auto) 20.2 H Absolute Nucleated RBC 0.000 Band Neutrophils % Not Reportable Nucleated RBC % 0.0 Platelet Estimate Adequate Hypochromasia 1+ Anisocytosis 1+ Ovalocytes Occasional [place] Cells Occasional Schistocytes None seen Sodium 133 L Potassium 4.1 3.2 L Chloride 101 Carbon Dioxide 26 Anion Gap 6 BUN 3 L Creatinine 0.51 L Estim Creat Clear Calc 84 Estimated GFR > 60 Glucose 92 Calcium 9.9 Phosphorus 2.1 L Magnesium 2.2 2.0 Total Bilirubin 0.6 AST 47 H ALT 23 Alkaline Phosphatase 390 H Ammonia 28 Total Protein 5.9 L Albumin 2.5 L Urine Color Yellow Urine Appearance Clear Urine pH 6.5 Ur Specific [place] 1.009 Urine Protein Trace Urine Glucose (UA) Negative Urine Ketones Negative Ur Blood (Man) Negative Urine Nitrate Negative Urine Bilirubin Negative Urine Urobilinogen 0.2 Ur Leukocyte Esterase Trace H Urine RBC 0-2 Urine WBC 0-5 Ur Squamous Epith Cells None seen Urine Bacteria None seen Urine Casts 0-2
--- NOTE | 2025-04-30 11:46 | PCNFU ---
Nutrition Follow-Up Complete: Inadequate oral intake related to altered mental status as evidenced by report of poor intake 2 weeks Goal:PO intake >50% We will continue current goal. Pt current nutrition is Regular with diet supplements. Last recorded weight is 70 kg up from 64.2 kg on admit. Bowel Motility: Last reported BM 04/29 Labs Reviewed:PO4 2.1, Hgb 8.6, Hct 26.8, Alb 2.5, Na 133 Meds Noted:Remeron, Miralax, Folic Acid,Protonix. Skin: WNL Additional Notes: Patient remains on a regular diet with Ensure Plus High Protein TID (350 kcal and 20 gm protein). Spoke with nursing today, patient only consumed 120 ml of Ensure at breakfast. Oral Intake has been declining. Per EMR, no intake over 25% reported in the past 9 days. Plans for nursing assist with lunch meal again today. PO intake encouraged. Hospitalist has been in discussions with family regarding plan of care. Monitoring intakes, weights, labs, supplement tolerance, feeding ability, plan of care Follow up in 3 days
[2025-04-30] MEDS: clonazePAM (*CRX) 0.5 MG TABLET PO ×2 (12:43→20:56)
[2025-04-30] MEDS: AZITHROMYCIN IV 500 MG in SODIUM CHLORIDE 0.9% IV 250 ML IVPB (15:02)
[2025-04-30] MEDS: MEROPENEM 1 GM in SODIUM CHLORIDE 0.9% IV 100 ML 200 ML IVPB ×2 (16:05→21:01)
--- NOTE | 2025-04-30 16:25 | WPDINFPN2 ---
Progress Note: A&P Assessment and Plan (1) Urinary tract infection: Code(s): N39.0 - Urinary tract infection, site not specified Status: Acute (2) Ovarian cancer: Code(s): C56.9 - Malignant neoplasm of unspecified ovary Status: Acute Plan # Leukocytosis-- Persists and is increasing; no fever -- recent complaint of diarrhea but C difficile negative. Likely related to use of antibiotics. Zosyn now discontinued. -- no evidence of UTI. Blood cultures from yesterday remain pending. Today with weak cough and chest x-ray consistent with both CHF and possible developing basilar pneumonia. -- leukemoid reaction related to underlying metastatic malignancy May be contributing. -- intermittent drop in hemoglobin may also contributing. # Enterococcus (amp resistant /vancomycin sensitive) complicated urinary tract infection. s/p vanc and augmentin. -- Repeat urine cx 04/19 neg -- 04/29 urinalysis unremarkable #Pneumonia; MRSA nares neg -- completed a course of Zosyn . -- but with increasing white count, confusion, and possible progression of basilar infiltrates on chest x-ray, repeat addition of antibiotics may be necessary. Recommendations: -- begin meropenem and azithromycin as coverage for pneumonia and possible developing sepsis. -- with negative stool for C diff have discontinued oral vancomycin. --continue to monitor leukocytosis. pharmacy and nursing staff Pt examined via telemedicine with HIPAA-protected audio-visual interface with pt at [facility] in [place], [place] and me in my office in [place]. Pt gave permission. Subjective Date/time seen: 04/30/25 16:25 Interval history: 04/28/2025: No new complaints. Continues to have some loose stools. C difficile assay is negative. Afebrile. White blood cell count 20.1. BUN and creatinine in 2 and 0.53. MRI of the brain showing small vessel ischemic changes. 04/29/2025: Afebrile with normal vital signs. However more confused today. She denies diarrhea. White blood cell count remains at 21.2. Antibiotics discontinued yesterday. Chest x-ray 04/28 consistent with pulmonary edema. 04/30/2025: Afebrile with stable vital signs but white blood cell count now increased to 23. Patient also continues to be more confused And with a weak cough. Repeat urinalysis without pyuria. 04/29 blood cultures are pending. Chest x-ray today again identify CHF but also with small bibasilar pneumonia and right pleural effusion. Review of Systems Review of Systems: reviewed. as per HPI All systems reviewed & are unremarkable except as noted in HPI and below Exam Narrative: No apparent distress but continues to be confused. No respiratory difficulty but with weak cough. Right PAC--no erythema . Abdomen is nondistended and soft. Objective Data Vital Signs Vital Signs: Vital Signs - 24 hr 04/29/25 19:31 04/29/25 19:31 04/29/25 20:00 Temperature Pulse Rate 97 97 Respiratory Rate 18 18 Blood Pressure Pulse Oximetry 99 Oxygen Delivery Room Air Room Air Fraction of Inspired Oxygen 21 04/29/25 20:00 04/29/25 20:25 04/29/25 21:36 Temperature 98.1 F Pulse Rate 109 H 107 H 107 H Respiratory Rate 18 Blood Pressure 145/87 H Pulse Oximetry 97 Oxygen Delivery Fraction of Inspired Oxygen 04/30/25 00:00 04/30/25 04:00 04/30/25 05:00 Temperature 99.2 F Pulse Rate 116 H 108 H 112 H Respiratory Rate 18 Blood Pressure 151/73 H Pulse Oximetry 93 Oxygen Delivery Fraction of Inspired Oxygen 04/30/25 08:00 04/30/25 08:24 04/30/25 08:25 Temperature Pulse Rate 102 H 106 H Respiratory Rate Blood Pressure Pulse Oximetry Oxygen Delivery Room Air Fraction of Inspired Oxygen 04/30/25 09:20 04/30/25 09:20 04/30/25 12:00 Temperature Pulse Rate 83 83 92 Respiratory Rate 20 20 Blood Pressure Pulse Oximetry 92 Oxygen Delivery Room Air Fraction of Inspired Oxygen 04/30/25 14:00 Temperature 98.9 F Pulse Rate 99 Respiratory Rate 20 Blood Pressure 146/76 H Pulse Oximetry 96 Oxygen Delivery Fraction of Inspired Oxygen Intake/Output Intake/Output: Intake & Output 04/27/25 04/28/25 04/29/25 04/30/25 23:59 23:59 23:59 23:59 Intake Total 4355.0 795.8 1120 275 Output Total 650 0 2600 600 Balance 3705.0 795.8 -1480 -325 Meds/Results Medications: Active Medications Generic Name Dose Route Start Last Admin Trade Name Freq PRN Reason Stop Dose Admin Acetaminophen 650 mg 03/29/25 19:45 04/29/25 09:02 Acetaminophen 325 Mg Tablet PO 650 mg Q4H PRN Administration Mild Pain (1-3) or Fever Albuterol 2.5 mg 03/29/25 21:50 04/29/25 19:31 Albuterol Sulfate Neb 2.5 Mg/3 Ml Inh INHALATION 2.5 mg Q4-6H PRN Administration Shortness Of Breath Albuterol 2 puff 04/03/25 17:11 04/28/25 09:15 Albuterol Sulfate (*Sp) Aerosol 1 Puff INHALATION 2 puff Q6HRT PRN Administration Shortness Of Breath Or Wheezing Alteplase, Recombinant 2 mg 04/16/25 09:02 04/16/25 10:24 Alteplase 2 Mg Vial (Cathflo) IV PUSH 2 mg ONCE PRN Administration Line Occlusion Atorvastatin Calcium 40 mg 03/30/25 09:00 04/30/25 08:24 Atorvastatin 40 Mg Tablet PO 40 mg DAILY DANIELE Administration Clonazepam 0.5 mg 04/29/25 07:05 04/30/25 12:43 Clonazepam (*Crx) 0.5 Mg Tablet PO 0.5 mg Q8H PRN Administration Anxiety Duloxetine HCl 60 mg 04/14/25 09:00 04/30/25 08:24 Duloxetine Hcl 30 Mg Capsule.Dr PO 60 mg DAILY DANIELE Administration Folic Acid 1 mg 03/30/25 09:00 04/30/25 08:24 Folic Acid 1 Mg Tablet PO 1 mg DAILY DANIELE Administration Heparin Sodium (Beef Lung) 50 units 03/30/25 09:00 04/30/25 08:25 Heparin Flush 50 Units/5 Ml Syringe IV PUSH 50 units QAM DANIELE Administration Heparin Sodium (Beef Lung) 50 units 03/29/25 23:50 Heparin Flush 50 Units/5 Ml Syringe IV PUSH PRN PRN after intermittent infusion Heparin Sodium (Beef Lung) 50 units 03/29/25 23:50 04/30/25 04:49 Heparin Flush 50 Units/5 Ml Syringe IV PUSH 50 units PRN PRN Administration after blood draws Heparin Sodium (Porcine) 500 units 03/29/25 23:50 04/11/25 23:05 Heparin Sodium Lock Flush 500 Units/5 Ml Syringe IV PUSH 500 units PRN PRN Administration see comments below Meropenem 1 gm/ Sodium 100 mls @ 200 mls/hr 10/23/25 14:00 04/30/25 15:03 Chloride IVPB 200 mls/hr Q8H DANIELE Administration Azithromycin 500 mg/ Sodium 250 mls @ 250 mls/hr 04/30/25 14:00 04/30/25 15:02 Chloride IVPB 05/02/25 14:59 250 mls/hr Q24H DANIELE Administration Loratadine 10 mg 03/30/25 09:00 04/30/25 08:24 Loratadine 10 Mg Tablet PO 10 mg QAM DANIELE Administration Menthol/Methyl Salicylate 1 applic 04/06/25 02:01 04/19/25 23:09 Menthol 10% / Methyl Salicylate 15% 57 Gm Tube TOPICAL 1 applic BID PRN Administration Muscle/Joint Pain Metoprolol Tartrate 25 mg 04/11/25 21:00 04/30/25 08:24 Metoprolol Tartrate 25 Mg Tablet PO 25 mg Q12HR DANIELE Administration Midodrine 10 mg 04/03/25 23:20 04/30/25 12:43 Midodrine Hcl 10 Mg Tablet PO 10 mg TID DANIELE Administration Mirtazapine 7.5 mg 04/28/25 21:00 04/29/25 20:26 Mirtazapine 7.5 Mg Tablet PO 7.5 mg HS DANIELE Administration Montelukast Sodium 10 mg 03/29/25 21:00 04/29/25 20:26 Montelukast Sodium 10 Mg Tablet PO 10 mg HS DANIELE Administration Ondansetron HCl 4 mg 04/20/25 10:08 04/25/25 13:41 Ondansetron Inj 4 Mg/2 Ml Vial IV PUSH 4 mg Q4H PRN Administration Nausea And Vomiting Oxycodone/Acetaminophen 1 tablet 04/22/25 18:33 04/30/25 04:34 Oxycodone/Acetaminophen (*Crx) 5-325 Mg Tablet PO 1 tablet Q6H PRN Administration Pain Rated 7-10 Pantoprazole Sodium 40 mg 04/07/25 21:00 04/30/25 08:24 Pantoprazole 40 Mg Tablet PO 40 mg Q12HR DANIELE Administration Polyethylene Glycol 17 gm 04/02/25 09:00 04/30/25 08:25 Polyethylene Glycol 3350 17 Gm Powd.Pack PO 17 gm QAM DANIELE Administration Fluticasone/Salmeterol 2 puff 03/29/25 20:00 04/30/25 09:19 Fluticasone/Salmeterol 45-21 Mcg Inhaler 1 Puff INHALATION 2 puff Q12HRT DANIELE Administration Senna 17.2 mg 03/30/25 09:00 04/02/25 08:36 Sennosides 8.6 Mg Tablet PO 17.2 mg On Hold: 04/02/25 08:45 BID DANIELE Administration Sodium Chloride 10 ml 03/30/25 06:00 04/30/25 12:43 Central Line Flush IV PUSH 10 ml Q8HR DANIELE Administration Radiology Results: ITS Impressions Head/Neck CTA 03/29/25 08:51 IMPRESSION: CTA NECK: 1. No ICA stenosis or other acute arterial abnormality. 2. Lytic bony metastatic disease C2, C5. 3. Lytic bony metastatic disease right scapula with large associated soft tissue component. CTA HEAD: 1. No large vessel arterial occlusive disease or other acute arterial abnormality. Venous Doppler Study 03/31/25 17:18 IMPRESSION: 1: No lower extremity deep venous thrombosis. Shoulder X-Ray 04/11/25 15:25 Impression: No acute fracture or malalignment. Head CT 04/23/25 14:10 Impression: 1.No acute intracranial abnormality. Chest/Abdomen/Pelvis CT 04/23/25 15:33 IMPRESSION: 1. [Multiple pulmonary nodules are noted in the lungs bilaterally measuring up to 12 mm. There is a enlarged precarinal lymph node measuring 16 mm. This may represent metastases. Multiple liver masses are noted suggestive of malignancy. Brain MRI 04/27/25 07:37 IMPRESSION: 1. Stable mild nonspecific cerebral white matter disease and pontine disease, which likely represents chronic small vessel ischemic disease. Chest X-Ray 04/30/25 14:37 Impression: CHF. Superimposed bronchopneumonia. The findings appear slightly progressed compared to the previous study Labs Labs: Laboratory Results - last 24 hr 04/29/25 04/30/25 16:54 04:45 WBC 23.0 H RBC 2.94 L Hgb 8.6 L Hct 26.8 L MCV 91.2 MCH 29.3 MCHC 32.1 RDW 18.5 H Plt Count 355 MPV 9.3 Immature Gran % (Auto) 2.2 H Neut % (Auto) 88.1 H Lymph % (Auto) 3.7 L [place] % (Auto) 5.4 Eos % (Auto) 0.3 Baso % (Auto) 0.3 Lymph # (Auto) 0.84 L [place] # (Auto) 1.2 H Eos # (Auto) 0.1 Baso # (Auto) 0.1 Abs Immat Gran (auto) 0.51 H Absolute Neuts (auto) 20.2 H Absolute Nucleated RBC 0.000 Band Neutrophils % Not Reportable Nucleated RBC % 0.0 Platelet Estimate Adequate Hypochromasia 1+ Anisocytosis 1+ Ovalocytes Occasional [place] Cells Occasional Schistocytes None seen Sodium 133 L Potassium 3.2 L Chloride 101 Carbon Dioxide 26 Anion Gap 6 BUN 3 L Creatinine 0.51 L Estim Creat Clear Calc 84 Estimated GFR > 60 Glucose 92 Calcium 9.9 Phosphorus 2.1 L Magnesium 2.0 Total Bilirubin 0.6 AST 47 H ALT 23 Alkaline Phosphatase 390 H Ammonia 28 Total Protein 5.9 L Albumin 2.5 L Urine Color Yellow Urine Appearance Clear Urine pH 6.5 Ur Specific [place] 1.009 Urine Protein Trace Urine Glucose (UA) Negative Urine Ketones Negative Ur Blood (Man) Negative Urine Nitrate Negative Urine Bilirubin Negative Urine Urobilinogen 0.2 Ur Leukocyte Esterase Trace H Urine RBC 0-2 Urine WBC 0-5 Ur Squamous Epith Cells None seen Urine Bacteria None seen Urine Casts 0-2
[2025-04-30] MEDS: MIRTAZAPINE 7.5 MG TABLET PO (20:53)
[2025-04-30] MEDS: MONTELUKAST SODIUM 10 MG TABLET PO (20:56)
[2025-04-30] MEDS: ALBUTEROL SULFATE NEB 2.5 MG/3 ML INH INHALATION (21:11)
[2025-05-01] VITALS (15 sets, daily range): BP systolic 125–141; BP diastolic 68–95; PULSE 97–116; RESP 18–25; TEMP 36.7–37; O2SAT 93–96
[2025-05-01] MEDS: oxyCODONE/ACETAMINOPHEN (*CRX) 5-325 MG TABLET 1 TABLET PO (03:16)
[2025-05-01 05:03] LABS: Hematocrit 25.6 % (37.0-47.0); Hemoglobin 8.0 g/dL (12.0-15.0); Immature Granulocyte Percent A 2.0 % (0-0.5); Lymphocytes Absolute Auto 0.78 K/mm3 (0.9-3.2); Mean Corpuscular HGB Conc 31.3 g/dl (32-36); Mean Corpuscular Hemoglobin 29.2 pg (26-34); Mean Corpuscular Volume 93.4 fl (80-100); Nucleated Red Blood Cells Absolute Auto 0.000 K/mm3 (0.0-0.012); Nucleated Red Blood Cells Perc 0.0 % (0.0-0.2); Platelet Count Result 340 k/mm3 (150-375); Red Blood Count 2.74 M/mm3 (4.2-5.4); White Blood Count 21.2 K/mm3 (4.5-10.0)
[2025-05-01 05:28] LABS: Albumin Level 2.2 g/dL (3.5-5.1); Anion Gap 5 mmol/L (4-12); Blood Urea Nitrogen 5 mg/dL (7-17); Calcium 10.2 mg/dL (8.4-10.2); Carbon Dioxide 28 mmol/L (22-30); Chloride 99 mmol/L (98-107); Estimated CRCL calculation 82 ml/min; Estimated Glomerular Filt Rate > 60; Glucose 86 mg/dL (65-110); Potassium 2.9 mmol/L (3.4-5.0); Sodium 132 mmol/L (137-145)
[2025-05-01 05:52] LABS: Hypochromasia 1+; Ovalocytes 1+
[2025-05-01 05:53] LABS: Schistocytes None Seen
[2025-05-01] MEDS: CENTRAL LINE FLUSH 10 ML IV PUSH ×2 (06:19→13:15)
[2025-05-01] MEDS: MEROPENEM 1 GM in SODIUM CHLORIDE 0.9% IV 100 ML 200 ML IVPB ×3 (06:19→21:21)
[2025-05-01] MEDS: FLUTICASONE/SALMETEROL 45-21 MCG INHALER 1 PUFF 2 PUFF INHALATION ×2 (08:24→19:34)
[2025-05-01] MEDS: MIDODRINE HCL 10 MG TABLET PO ×3 (09:00→16:37)
[2025-05-01] MEDS: FOLIC ACID 1 MG TABLET PO (09:00)
[2025-05-01] MEDS: ATORVASTATIN 40 MG TABLET PO (09:00)
[2025-05-01] MEDS: PANTOPRAZOLE 40 MG TABLET PO ×2 (09:00→20:01)
[2025-05-01] MEDS: POTASSIUM CHLORIDE 20 MEQ ER TABLET 40 MEQ PO (09:00)
[2025-05-01] MEDS: METOPROLOL TARTRATE 25 MG TABLET PO ×2 (09:00→20:01)
[2025-05-01] MEDS: LORATADINE 10 MG TABLET PO (09:00)
[2025-05-01] MEDS: clonazePAM (*CRX) 0.5 MG TABLET PO (09:23)
--- NOTE | 2025-05-01 12:09 | P.PNIM_ITS ---
Progress Note: A&P Assessment and Plan (1) Altered mental status: Code(s): R41.82 - Altered mental status, unspecified Status: Acute (2) Urinary tract infection: Code(s): N39.0 - Urinary tract infection, site not specified Status: Acute (3) Hypercalcemia of malignancy: Code(s): E83.52 - Hypercalcemia Status: Acute (4) Anemia: Code(s): D64.9 - Anemia, unspecified Status: Acute (5) Ovarian cancer: Code(s): C56.9 - Malignant neoplasm of unspecified ovary Status: Acute (6) Cardiomyopathy: Code(s): I42.9 - Cardiomyopathy, unspecified Status: Acute (7) Patent foramen ovale with right to left shunt: Code(s): Q21.12 - Patent foramen ovale Status: Acute (8) Hypokalemia: Code(s): E87.6 - Hypokalemia Status: Acute (9) Pneumonia: Code(s): J18.9 - Pneumonia, unspecified organism Status: Acute (10) Leukocytosis: Code(s): D72.829 - Elevated white blood cell count, unspecified Status: Acute (11) Vaginitis: Code(s): N76.0 - Acute vaginitis Status: Acute Plan Altered mental status/acute encephalopathy: CT with age indeterminate focus of left frontal subcortical ischemia MRI brain unremarkable Echocardiogram with EF of 40-45% with regional wall motion abnormality, PFO Mental status was improving but has worsened since. Repeat brain MRI without contrast 04/27 again showing no acute findings. Neurology following Continues to be confused. Psych consulted and medications adjusted. Still with poor oral intake. UTI: UCx Positive (03/28) for EColi and she completed a course of ceftriaxone However UA positive for UTI again and ceftriaxone restarted 04/11 UCx grew Corine and Enterococcus - ampicillin resistant so treated with vancomycin Repeat urine culture 04/19 and 04/29 negative. Vaginitis: Received a dose of fluconazole 04/13/2025 PNA: MRSA nasal screen was negative ID consulted and appreciate their input BCx negative from 04/11, 04/19 Treated with Zosyn and completed a course on 04/27 BCx 04/30 NGTD Abx resumed 04/30 Leukocytosis: WBC persistently elevated and worse today off abx. CDiff negative Repeat Cx off abx drawn and are negative Could be related to underlying metastatic ovarian cancer Hypercalcemia: Likely secondary to malignancy Received zoledronic acid, calcitonin, IV fluids Hypercalcemia has resolved Anemia: Status post 2 units of PRBC on 04/04 Hgb has been stable until Hgb 6.7 requiring one unit RPBCs on 04/25. No signs of bleeding. [place] related to metastatic ovarian cancer Hgb stable. Follow. History of metastatic ovarian cancer: Patient follows up with Oncology at [facility] MRI brain with contrast showing no acute findings 03/30 CTA head/neck showing C2 and C5 lytic lesions and right scapula MRI brain without contrast 04/[address] Ch/A/P showing multiple liver and lung masses as well as large precarinal LN Oncology consulted. CA 125 elevated. Family decided on hospice care with plans for patient to be discharged in 2 days. Cardiomyopathy/PFO: Echo showing EF 40-45% with regional wall motion abnormality and PFO with R-->L shunt Cardiology consulted. LE venous doppler negative for DVT so unlikely paradoxical CVA. Metoprolol tartrate started. Maxide and verapamil stopped and losartan added Due to HoTN and anemia, Plavix stopped and medication adjusted. Continue tele monitoring. Continue statin. Currently on room air History of hypertension: Continue with metoprolol Verapamil has been stopped Lice: Lice in hair that was treated with permethrin Code status: Full DVT prophylaxis: SCDs Disposition: Family has decided on hospice at home and arrangements are being made. Subjective Date/time seen: 05/01/25 12:09 Interval history: 59yo female with HTN and metastatic ovarian CA here for AMS. Patient remains confused. Review of Systems Review of Systems: ROS unobtainable: Yes unobtainable due to mental status Exam Narrative: AF 98.3 141/83 106 20 96% ra Gen - NARD Chest - lungs clear anteriorly. Right upper chest port accessed CV - RRR. S1-S2. Abd - soft, ND. +BS Ext - trace pedal edema Psych - somnolent but arouses. Skin - Warm and dry. Objective Data Vital Signs Vital Signs: Vital Signs - 24 hr 04/30/25 14:00 04/30/25 16:00 04/30/25 20:00 Temperature 98.9 F Pulse Rate 99 97 120 H Respiratory Rate 20 Blood Pressure 146/76 H Pulse Oximetry 96 Oxygen Delivery 10/23/25 20:50 04/30/25 20:55 04/30/25 21:10 Temperature 98.7 F Pulse Rate 120 H 120 H Respiratory Rate 24 H Blood Pressure 151/78 H Pulse Oximetry 95 94 Oxygen Delivery Room Air 04/30/25 21:12 04/30/25 21:19 05/01/25 00:00 Temperature Pulse Rate 114 H 116 H 116 H Respiratory Rate 24 H 24 H Blood Pressure Pulse Oximetry Oxygen Delivery 05/01/25 04:00 05/01/25 04:58 05/01/25 08:00 Temperature 98.3 F Pulse Rate 108 H 98 101 H Respiratory Rate 20 Blood Pressure 126/68 Pulse Oximetry 93 Oxygen Delivery 05/01/25 08:26 05/01/25 08:56 05/01/25 09:00 Temperature Pulse Rate 105 H 106 H Respiratory Rate 20 20 Blood Pressure 141/83 H Pulse Oximetry 96 Oxygen Delivery 05/01/25 09:15 Temperature Pulse Rate Respiratory Rate Blood Pressure Pulse Oximetry 96 Oxygen Delivery Room Air Intake/Output Intake/Output: Intake & Output 04/28/25 04/29/25 04/30/25 05/01/25 23:59 23:59 23:59 23:59 Intake Total 795.8 1120 725 400 Output Total 0 2600 1050 1800 Balance 795.8 -1480 -325 -1400 Meds/Results Medications: Active Medications Generic Name Dose Route Start Last Admin Trade Name Freq PRN Reason Stop Dose Admin Acetaminophen 650 mg 03/29/25 19:45 04/29/25 09:02 Acetaminophen 325 Mg Tablet PO 650 mg Q4H PRN Administration Mild Pain (1-5) Or Fever Hydrocodone Bitart/Acetaminophen 1 tab 05/01/25 07:09 Hydrocodone/Acetaminophen (*Crx) 5-325 Mg Tablet PO Q6H PRN Pain Rated 6 or Greater Albuterol 2.5 mg 03/29/25 21:50 04/30/25 21:11 Albuterol Sulfate Neb 2.5 Mg/3 Ml Inh INHALATION 2.5 mg Q4-6H PRN Administration Shortness Of Breath Albuterol 2 puff 04/03/25 17:11 04/28/25 09:15 Albuterol Sulfate (*Sp) Aerosol 1 Puff INHALATION 2 puff Q6HRT PRN Administration Shortness Of Breath Or Wheezing Alteplase, Recombinant 2 mg 04/16/25 09:02 04/16/25 10:24 Alteplase 2 Mg Vial (Cathflo) IV PUSH 2 mg ONCE PRN Administration Line Occlusion Atorvastatin Calcium 40 mg 03/30/25 09:00 05/01/25 09:00 Atorvastatin 40 Mg Tablet PO 40 mg DAILY DANIELE Administration Clonazepam 0.5 mg 04/29/25 07:05 05/01/25 09:23 Clonazepam (*Crx) 0.5 Mg Tablet PO 0.5 mg Q8H PRN Administration Anxiety Duloxetine HCl 60 mg 04/14/25 09:00 05/01/25 09:00 Duloxetine Hcl 30 Mg Capsule.Dr PO 60 mg DAILY DANIELE Administration Folic Acid 1 mg 03/30/25 09:00 05/01/25 09:00 Folic Acid 1 Mg Tablet PO 1 mg DAILY DANIELE Administration Heparin Sodium (Beef Lung) 50 units 03/30/25 09:00 05/01/25 09:01 Heparin Flush 50 Units/5 Ml Syringe IV PUSH 50 units QAM DANIELE Administration Heparin Sodium (Beef Lung) 50 units 03/29/25 23:50 05/01/25 06:57 Heparin Flush 50 Units/5 Ml Syringe IV PUSH 50 units PRN PRN Administration after intermittent infusion Heparin Sodium (Beef Lung) 50 units 03/29/25 23:50 05/01/25 04:56 Heparin Flush 50 Units/5 Ml Syringe IV PUSH 50 units PRN PRN Administration after blood draws Heparin Sodium (Porcine) 500 units 03/29/25 23:50 04/11/25 23:05 Heparin Sodium Lock Flush 500 Units/5 Ml Syringe IV PUSH 500 units PRN PRN Administration see comments below Meropenem 1 gm/ Sodium 100 mls @ 200 mls/hr 04/30/25 14:00 05/01/25 06:49 Chloride IVPB Infused Q8H DANIELE Infusion Azithromycin 500 mg/ Sodium 250 mls @ 250 mls/hr 04/30/25 14:00 04/30/25 16:05 Chloride IVPB 05/02/25 14:59 Infused Q24H DANIELE Infusion Loratadine 10 mg 03/30/25 09:00 05/01/25 09:00 Loratadine 10 Mg Tablet PO 10 mg QAM DANIELE Administration Menthol/Methyl Salicylate 1 applic 04/06/25 02:01 04/19/25 23:09 Menthol 10% / Methyl Salicylate 15% 57 Gm Tube TOPICAL 1 applic BID PRN Administration Muscle/Joint Pain Metoprolol Tartrate 25 mg 04/11/25 21:00 05/01/25 09:00 Metoprolol Tartrate 25 Mg Tablet PO 25 mg Q12HR DANIELE Administration Midodrine 10 mg 04/03/25 23:20 05/01/25 09:00 Midodrine Hcl 10 Mg Tablet PO 10 mg TID DANIELE Administration Mirtazapine 7.5 mg 04/28/25 21:00 04/30/25 20:53 Mirtazapine 7.5 Mg Tablet PO 7.5 mg HS DANIELE Administration Montelukast Sodium 10 mg 03/29/25 21:00 04/30/25 20:56 Montelukast Sodium 10 Mg Tablet PO 10 mg HS DANIELE Administration Ondansetron HCl 4 mg 04/20/25 10:08 04/25/25 13:41 Ondansetron Inj 4 Mg/2 Ml Vial IV PUSH 4 mg Q4H PRN Administration Nausea And Vomiting Pantoprazole Sodium 40 mg 04/07/25 21:00 05/01/25 09:00 Pantoprazole 40 Mg Tablet PO 40 mg Q12HR DANIELE Administration Polyethylene Glycol 17 gm 04/02/25 09:00 05/01/25 08:58 Polyethylene Glycol 3350 17 Gm Powd.Pack PO Not Given QAM DANIELE Fluticasone/Salmeterol 2 puff 03/29/25 20:00 05/01/25 08:24 Fluticasone/Salmeterol 45-21 Mcg Inhaler 1 Puff INHALATION 2 puff Q12HRT DANIELE Administration Sodium Chloride 10 ml 03/30/25 06:00 05/01/25 06:19 Central Line Flush IV PUSH 10 ml Q8HR DANIELE Administration Radiology Results: ITS Impressions Head/Neck CTA 03/29/25 08:51 IMPRESSION: CTA NECK: 1. No ICA stenosis or other acute arterial abnormality. 2. Lytic bony metastatic disease C2, C5. 3. Lytic bony metastatic disease right scapula with large associated soft tissue component. CTA HEAD: 1. No large vessel arterial occlusive disease or other acute arterial abnormality. Venous Doppler Study 03/31/25 17:18 IMPRESSION: 1: No lower extremity deep venous thrombosis. Shoulder X-Ray 04/11/25 15:25 Impression: No acute fracture or malalignment. Head CT 04/23/25 14:10 Impression: 1.No acute intracranial abnormality. Chest/Abdomen/Pelvis CT 04/23/25 15:33 IMPRESSION: 1. [Multiple pulmonary nodules are noted in the lungs bilaterally measuring up to 12 mm. There is a enlarged precarinal lymph node measuring 16 mm. This may represent metastases. Multiple liver masses are noted suggestive of malignancy. Brain MRI 04/27/25 07:37 IMPRESSION: 1. Stable mild nonspecific cerebral white matter disease and pontine disease, which likely represents chronic small vessel ischemic disease. Chest X-Ray 04/30/25 14:37 Impression: CHF. Superimposed bronchopneumonia. The findings appear slightly progressed compared to the previous study Labs Labs: Laboratory Results - last 24 hr 05/01/25 04:54 WBC 21.2 H RBC 2.74 L Hgb 8.0 L Hct 25.6 L MCV 93.4 MCH 29.2 MCHC 31.3 L RDW 18.4 H Plt Count 340 MPV 9.4 Immature Gran % (Auto) 2.0 H Neut % (Auto) 87.2 H Lymph % (Auto) 3.7 L [place] % (Auto) 6.6 Eos % (Auto) 0.2 Baso % (Auto) 0.3 Lymph # (Auto) 0.78 L [place] # (Auto) 1.4 H Eos # (Auto) 0.1 Baso # (Auto) 0.1 Abs Immat Gran (auto) 0.42 H Absolute Neuts (auto) 18.5 H Absolute Nucleated RBC 0.000 Band Neutrophils % Not Reportable Nucleated RBC % 0.0 Platelet Estimate Adequate Hypochromasia 1+ Ovalocytes 1+ Schistocytes None seen Sodium 132 L Potassium 2.9 L Chloride 99 Carbon Dioxide 28 Anion Gap 5 BUN 5 L Creatinine 0.52 L Estim Creat Clear Calc 82 Estimated GFR > 60 Glucose 86 Calcium 10.2 Phosphorus 2.6 Albumin 2.2 L
[2025-05-01] MEDS: AZITHROMYCIN IV 500 MG in SODIUM CHLORIDE 0.9% IV 250 ML IVPB (14:11)
--- NOTE | 2025-05-01 14:44 | WPDINFPN2 ---
Progress Note: A&P Assessment and Plan (1) Urinary tract infection: Code(s): N39.0 - Urinary tract infection, site not specified Status: Acute (2) Ovarian cancer: Code(s): C56.9 - Malignant neoplasm of unspecified ovary Status: Acute Plan # Leukocytosis-- Persists and is increasing; no fever -- recent complaint of diarrhea but C difficile negative. Likely related to use of antibiotics. Zosyn now discontinued. -- no evidence of UTI. Blood cultures from yesterday remain pending. Today with weak cough and chest x-ray consistent with both CHF and possible developing basilar pneumonia. -- leukemoid reaction related to underlying metastatic malignancy May be contributing. -- intermittent drop in hemoglobin may also contributing. -- most recent chest x-ray reviewed and repeat blood cultures have been obtained. Meanwhile she has been placed empirically on meropenem and azithromycin, now day 2. # Enterococcus (amp resistant /vancomycin sensitive) complicated urinary tract infection. s/p vanc and augmentin. -- Repeat urine cx 04/19 neg -- 04/29 urinalysis unremarkable #Pneumonia; MRSA nares neg -- completed a course of Zosyn . Restarted on antibiotics and now receiving meropenem / azithromycin. -- but with increasing white count, confusion, and possible progression of basilar infiltrates on chest x-ray, repeat addition of antibiotics may be necessary. # Progressive altered mental status. -- 04/27 MRI without acute abnormality. Evidence of chronic small vessel disease identified. -- unclear if we are dealing with complications such as meningeal carcinomatosis although no meningeal inflammation noted on MRI scan and apparently rare with ovarian cancer. Recommendations: --continue meropenem and azithromycin as coverage for pneumonia and possible developing sepsis. --with negative stool for C diff have discontinued oral vancomycin. --continue to monitor leukocytosis. --family discussing hospice or comfort care measure options. pharmacy and nursing staff Pt examined via telemedicine with HIPAA-protected audio-visual interface with pt at [facility] in [place], [place] and me in my office in [place]. Pt gave permission. Subjective Date/time seen: 05/01/25 14:44 Interval history: 04/28/2025: No new complaints. Continues to have some loose stools. C difficile assay is negative. Afebrile. White blood cell count 20.1. BUN and creatinine in 2 and 0.53. MRI of the brain showing small vessel ischemic changes. 04/29/2025: Afebrile with normal vital signs. However more confused today. She denies diarrhea. White blood cell count remains at 21.2. Antibiotics discontinued yesterday. Chest x-ray 04/28 consistent with pulmonary edema. 04/30/2025: Afebrile with stable vital signs but white blood cell count now increased to 23. Patient also continues to be more confused And with a weak cough. Repeat urinalysis without pyuria. 04/29 blood cultures are pending. Chest x-ray today again identify CHF but also with small bibasilar pneumonia and right pleural effusion. 05/01/2025: She remains afebrile and white blood cell count has decreased from 23-21.2 after placement back on antibiotics yesterday. However, she continues to have increasing lethargy and today with difficulty vocalizing. Urinalysis unremarkable, blood cultures 04/29 are pending, and chest x-ray from yesterday shows increased CHF plus bronchopneumonia. Review of Systems Review of Systems: reviewed. as per HPI All systems reviewed & are unremarkable except as noted in HPI and below Exam Narrative: No apparent distress but continues to be confused And more lethargic today. No respiratory difficulty.. Right PAC--no erythema . Abdomen is nondistended and soft. Objective Data Vital Signs Vital Signs: Vital Signs - 24 hr 04/30/25 16:00 04/30/25 20:00 04/30/25 20:50 Temperature 98.7 F Pulse Rate 97 120 H 120 H Respiratory Rate 24 H Blood Pressure 151/78 H Pulse Oximetry 95 Oxygen Delivery 04/30/25 20:55 04/30/25 21:10 04/30/25 21:12 Temperature Pulse Rate 120 H 114 H Respiratory Rate 24 H Blood Pressure Pulse Oximetry 94 Oxygen Delivery Room Air 04/30/25 21:19 05/01/25 00:00 05/01/25 04:00 Temperature Pulse Rate 116 H 116 H 108 H Respiratory Rate 24 H Blood Pressure Pulse Oximetry Oxygen Delivery 05/01/25 04:58 05/01/25 08:00 05/01/25 08:26 Temperature 98.3 F Pulse Rate 98 101 H Respiratory Rate 20 20 Blood Pressure 126/68 Pulse Oximetry 93 Oxygen Delivery 05/01/25 08:56 05/01/25 09:00 05/01/25 09:15 Temperature Pulse Rate 105 H 106 H Respiratory Rate 20 Blood Pressure 141/83 H Pulse Oximetry 96 96 Oxygen Delivery Room Air 05/01/25 12:25 Temperature Pulse Rate 101 H Respiratory Rate Blood Pressure Pulse Oximetry Oxygen Delivery Intake/Output Intake/Output: Intake & Output 04/28/25 04/29/25 04/30/25 05/01/25 23:59 23:59 23:59 23:59 Intake Total 795.8 1120 725 500 Output Total 0 2600 1050 1800 Balance 795.8 -1480 -325 -1300 Meds/Results Medications: Active Medications Generic Name Dose Route Start Last Admin Trade Name Freq PRN Reason Stop Dose Admin Acetaminophen 650 mg 03/29/25 19:45 04/29/25 09:02 Acetaminophen 325 Mg Tablet PO 650 mg Q4H PRN Administration Mild Pain (1-5) Or Fever Hydrocodone Bitart/Acetaminophen 1 tab 05/01/25 07:09 Hydrocodone/Acetaminophen (*Crx) 5-325 Mg Tablet PO Q6H PRN Pain Rated 6 or Greater Albuterol 2.5 mg 03/29/25 21:50 04/30/25 21:11 Albuterol Sulfate Neb 2.5 Mg/3 Ml Inh INHALATION 2.5 mg Q4-6H PRN Administration Shortness Of Breath Albuterol 2 puff 04/03/25 17:11 04/28/25 09:15 Albuterol Sulfate (*Sp) Aerosol 1 Puff INHALATION 2 puff Q6HRT PRN Administration Shortness Of Breath Or Wheezing Alteplase, Recombinant 2 mg 04/16/25 09:02 04/16/25 10:24 Alteplase 2 Mg Vial (Cathflo) IV PUSH 2 mg ONCE PRN Administration Line Occlusion Atorvastatin Calcium 40 mg 03/30/25 09:00 05/01/25 09:00 Atorvastatin 40 Mg Tablet PO 40 mg DAILY DANIELE Administration Clonazepam 0.5 mg 04/29/25 07:05 05/01/25 09:23 Clonazepam (*Crx) 0.5 Mg Tablet PO 0.5 mg Q8H PRN Administration Anxiety Duloxetine HCl 60 mg 04/14/25 09:00 05/01/25 09:00 Duloxetine Hcl 30 Mg Capsule.Dr PO 60 mg DAILY DANIELE Administration Folic Acid 1 mg 03/30/25 09:00 05/01/25 09:00 Folic Acid 1 Mg Tablet PO 1 mg DAILY DANIELE Administration Heparin Sodium (Beef Lung) 50 units 03/30/25 09:00 05/01/25 09:01 Heparin Flush 50 Units/5 Ml Syringe IV PUSH 50 units QAM DANIELE Administration Heparin Sodium (Beef Lung) 50 units 03/29/25 23:50 05/01/25 06:57 Heparin Flush 50 Units/5 Ml Syringe IV PUSH 50 units PRN PRN Administration after intermittent infusion Heparin Sodium (Beef Lung) 50 units 03/29/25 23:50 05/01/25 04:56 Heparin Flush 50 Units/5 Ml Syringe IV PUSH 50 units PRN PRN Administration after blood draws Heparin Sodium (Porcine) 500 units 03/29/25 23:50 04/11/25 23:05 Heparin Sodium Lock Flush 500 Units/5 Ml Syringe IV PUSH 500 units PRN PRN Administration see comments below Meropenem 1 gm/ Sodium 100 mls @ 200 mls/hr 04/30/25 14:00 05/01/25 13:45 Chloride IVPB Infused Q8H DANIELE Infusion Azithromycin 500 mg/ Sodium 250 mls @ 250 mls/hr 04/30/25 14:00 05/01/25 14:11 Chloride IVPB 05/02/25 14:59 250 mls/hr Q24H DANIELE Administration Loratadine 10 mg 03/30/25 09:00 05/01/25 09:00 Loratadine 10 Mg Tablet PO 10 mg QAM DANIELE Administration Menthol/Methyl Salicylate 1 applic 04/06/25 02:01 04/19/25 23:09 Menthol 10% / Methyl Salicylate 15% 57 Gm Tube TOPICAL 1 applic BID PRN Administration Muscle/Joint Pain Metoprolol Tartrate 25 mg 04/11/25 21:00 05/01/25 09:00 Metoprolol Tartrate 25 Mg Tablet PO 25 mg Q12HR DANIELE Administration Midodrine 10 mg 04/03/25 23:20 05/01/25 13:15 Midodrine Hcl 10 Mg Tablet PO 10 mg TID DANIELE Administration Mirtazapine 7.5 mg 04/28/25 21:00 04/30/25 20:53 Mirtazapine 7.5 Mg Tablet PO 7.5 mg HS DANIELE Administration Montelukast Sodium 10 mg 03/29/25 21:00 04/30/25 20:56 Montelukast Sodium 10 Mg Tablet PO 10 mg HS DANIELE Administration Ondansetron HCl 4 mg 04/20/25 10:08 04/25/25 13:41 Ondansetron Inj 4 Mg/2 Ml Vial IV PUSH 4 mg Q4H PRN Administration Nausea And Vomiting Pantoprazole Sodium 40 mg 04/07/25 21:00 05/01/25 09:00 Pantoprazole 40 Mg Tablet PO 40 mg Q12HR DANIELE Administration Polyethylene Glycol 17 gm 04/02/25 09:00 05/01/25 08:58 Polyethylene Glycol 3350 17 Gm Powd.Pack PO Not Given QAM DANIELE Fluticasone/Salmeterol 2 puff 03/29/25 20:00 05/01/25 08:24 Fluticasone/Salmeterol 45-21 Mcg Inhaler 1 Puff INHALATION 2 puff Q12HRT DANIELE Administration Sodium Chloride 10 ml 03/30/25 06:00 05/01/25 13:15 Central Line Flush IV PUSH 10 ml Q8HR DANIELE Administration Radiology Results: ITS Impressions Head/Neck CTA 03/29/25 08:51 IMPRESSION: CTA NECK: 1. No ICA stenosis or other acute arterial abnormality. 2. Lytic bony metastatic disease C2, C5. 3. Lytic bony metastatic disease right scapula with large associated soft tissue component. CTA HEAD: 1. No large vessel arterial occlusive disease or other acute arterial abnormality. Venous Doppler Study 03/31/25 17:18 IMPRESSION: 1: No lower extremity deep venous thrombosis. Shoulder X-Ray 04/11/25 15:25 Impression: No acute fracture or malalignment. Head CT 04/23/25 14:10 Impression: 1.No acute intracranial abnormality. Chest/Abdomen/Pelvis CT 04/23/25 15:33 IMPRESSION: 1. [Multiple pulmonary nodules are noted in the lungs bilaterally measuring up to 12 mm. There is a enlarged precarinal lymph node measuring 16 mm. This may represent metastases. Multiple liver masses are noted suggestive of malignancy. Brain MRI 04/27/25 07:37 IMPRESSION: 1. Stable mild nonspecific cerebral white matter disease and pontine disease, which likely represents chronic small vessel ischemic disease. Chest X-Ray 04/30/25 14:37 Impression: CHF. Superimposed bronchopneumonia. The findings appear slightly progressed compared to the previous study Labs Labs: Laboratory Results - last 24 hr 05/01/25 04:54 WBC 21.2 H RBC 2.74 L Hgb 8.0 L Hct 25.6 L MCV 93.4 MCH 29.2 MCHC 31.3 L RDW 18.4 H Plt Count 340 MPV 9.4 Immature Gran % (Auto) 2.0 H Neut % (Auto) 87.2 H Lymph % (Auto) 3.7 L [place] % (Auto) 6.6 Eos % (Auto) 0.2 Baso % (Auto) 0.3 Lymph # (Auto) 0.78 L [place] # (Auto) 1.4 H Eos # (Auto) 0.1 Baso # (Auto) 0.1 Abs Immat Gran (auto) 0.42 H Absolute Neuts (auto) 18.5 H Absolute Nucleated RBC 0.000 Band Neutrophils % Not Reportable Nucleated RBC % 0.0 Platelet Estimate Adequate Hypochromasia 1+ Ovalocytes 1+ Schistocytes None seen Sodium 132 L Potassium 2.9 L Chloride 99 Carbon Dioxide 28 Anion Gap 5 BUN 5 L Creatinine 0.52 L Estim Creat Clear Calc 82 Estimated GFR > 60 Glucose 86 Calcium 10.2 Phosphorus 2.6 Albumin 2.2 L
--- NOTE | 2025-05-01 14:47 | PCPTNOTE ---
Attempted to see patient 2x today however patient did not attempt to participate. RN and MD aware.
[2025-05-01] MEDS: MONTELUKAST SODIUM 10 MG TABLET PO (20:01)
[2025-05-01] MEDS: MIRTAZAPINE 7.5 MG TABLET PO (20:01)
[2025-05-02] VITALS (11 sets, daily range): BP systolic 135–148; BP diastolic 66–91; PULSE 92–115; RESP 18–24; TEMP 36.6–36.9; O2SAT 95
[2025-05-02] MEDS: clonazePAM (*CRX) 0.5 MG TABLET PO ×2 (00:52→20:53)
[2025-05-02] MEDS: HYDROcodone/acetaminophen (*CRX) 5-325 MG TABLET 1 TAB PO ×3 (03:00→23:41)
[2025-05-02] MEDS: CENTRAL LINE FLUSH 10 ML IV PUSH ×3 (03:00→13:07)
[2025-05-02] MEDS: MEROPENEM 1 GM in SODIUM CHLORIDE 0.9% IV 100 ML 200 ML IVPB ×3 (05:00→21:06)
[2025-05-02] MEDS: FLUTICASONE/SALMETEROL 45-21 MCG INHALER 1 PUFF 2 PUFF INHALATION ×2 (07:05→19:48)
[2025-05-02] MEDS: MIDODRINE HCL 10 MG TABLET PO (08:55)
[2025-05-02] MEDS: FOLIC ACID 1 MG TABLET PO (08:56)
[2025-05-02] MEDS: METOPROLOL TARTRATE 25 MG TABLET PO ×2 (08:56→20:50)
[2025-05-02] MEDS: LORATADINE 10 MG TABLET PO (08:56)
[2025-05-02] MEDS: ATORVASTATIN 40 MG TABLET PO (08:56)
--- NOTE | 2025-05-02 12:13 | P.PNIM_ITS ---
Progress Note: A&P Assessment and Plan (1) Altered mental status: Code(s): R41.82 - Altered mental status, unspecified Status: Acute (2) Urinary tract infection: Code(s): N39.0 - Urinary tract infection, site not specified Status: Acute (3) Hypercalcemia of malignancy: Code(s): E83.52 - Hypercalcemia Status: Acute (4) Anemia: Code(s): D64.9 - Anemia, unspecified Status: Acute (5) Ovarian cancer: Code(s): C56.9 - Malignant neoplasm of unspecified ovary Status: Acute (6) Cardiomyopathy: Code(s): I42.9 - Cardiomyopathy, unspecified Status: Acute (7) Patent foramen ovale with right to left shunt: Code(s): Q21.12 - Patent foramen ovale Status: Acute (8) Hypokalemia: Code(s): E87.6 - Hypokalemia Status: Acute (9) Pneumonia: Code(s): J18.9 - Pneumonia, unspecified organism Status: Acute (10) Leukocytosis: Code(s): D72.829 - Elevated white blood cell count, unspecified Status: Acute (11) Vaginitis: Code(s): N76.0 - Acute vaginitis Status: Acute Plan Altered mental status/acute encephalopathy: CT with age indeterminate focus of left frontal subcortical ischemia MRI brain unremarkable Echocardiogram with EF of 40-45% with regional wall motion abnormality, PFO Mental status was improving but has worsened since. Repeat brain MRI without contrast 04/27 again showing no acute findings. Neurology following Continues to be confused. Psych consulted and medications adjusted. Still with poor oral intake. UTI: UCx Positive (03/28) for EColi and she completed a course of ceftriaxone However UA positive for UTI again and ceftriaxone restarted 04/11 UCx grew Corine and Enterococcus - ampicillin resistant so treated with vancomycin Repeat urine culture 04/19 and 04/29 negative. Vaginitis: Received a dose of fluconazole 04/13/2025 PNA: MRSA nasal screen was negative ID consulted and appreciate their input BCx negative from 04/11, 04/19 Treated with Zosyn and completed a course on 04/27 BCx 04/29 NGTD Abx resumed 04/30 Leukocytosis: WBC persistently elevated CDiff negative Repeat Cx off abx drawn and are negative Could be related to underlying metastatic ovarian cancer Hypercalcemia: Likely secondary to malignancy Received zoledronic acid, calcitonin, IV fluids Hypercalcemia has resolved Anemia: Status post 2 units of PRBC on 04/04 Hgb has been stable until Hgb 6.7 requiring one unit RPBCs on 04/25. No signs of bleeding. Ralph related to metastatic ovarian cancer Hgb has been stable. History of metastatic ovarian cancer: Patient follows up with Oncology at [facility] MRI brain with contrast showing no acute findings 03/30 CTA head/neck showing C2 and C5 lytic lesions and right scapula MRI brain without contrast 04/[address] Ch/A/P showing multiple liver and lung masses as well as large precarinal LN Oncology consulted. CA 125 elevated. Family decided on hospice care with plans for patient to be discharged in 2 days. Cardiomyopathy/PFO: Echo showing EF 40-45% with regional wall motion abnormality and PFO with R-->L shunt Cardiology consulted. LE venous doppler negative for DVT so unlikely paradoxical CVA. Metoprolol tartrate started. Maxide and verapamil stopped and losartan added Due to HoTN and anemia, Plavix stopped and medication adjusted. Continue tele monitoring. Continue statin. Currently on room air History of hypertension: Continue with metoprolol Verapamil has been stopped Lice: Lice in hair that was treated with permethrin Code status: Full DVT prophylaxis: SCDs Disposition: Family has decided on hospice at home and arrangements are being made. Subjective Date/time seen: 05/02/25 12:13 Interval history: 59yo female with HTN and metastatic ovarian CA here for AMS. Patient somnolent and confused. Dtr at bedside and the family has decided to move toward hospice care. No plans for cancer treatment Review of Systems Review of Systems: ROS unobtainable: Yes unobtainable due to mental status Exam Narrative: AF 98.4 144/90 113 24 95% ra Gen - NARD Chest - lungs clear coarse anteriorly. Right upper chest port accessed CV - RRR. S1-S2. Abd - soft, ND. +BS Ext - trace pedal edema Psych - somnolent but arouses. confused Skin - Warm and dry. Objective Data Vital Signs Vital Signs: Vital Signs - 24 hr 05/01/25 12:25 05/01/25 14:43 05/01/25 16:00 Temperature 98.6 F Pulse Rate 101 H 100 97 Respiratory Rate 25 H Blood Pressure 125/70 Pulse Oximetry 94 Oxygen Delivery 05/01/25 19:34 05/01/25 19:34 05/01/25 20:00 Temperature Pulse Rate 108 H 104 H Respiratory Rate 22 H Blood Pressure Pulse Oximetry 94 Oxygen Delivery Room Air 05/01/25 20:01 05/01/25 21:59 05/02/25 00:00 Temperature 98.0 F Pulse Rate 106 H 106 H 107 H Respiratory Rate 18 Blood Pressure 141/95 H Pulse Oximetry 94 Oxygen Delivery 05/02/25 04:00 05/02/25 06:00 05/02/25 07:07 Temperature 98.4 F Pulse Rate 115 H 113 H 112 H Respiratory Rate 18 24 H Blood Pressure 144/90 H Pulse Oximetry 95 Oxygen Delivery 05/02/25 08:00 05/02/25 08:55 05/02/25 08:56 Temperature Pulse Rate 115 H 113 H Respiratory Rate Blood Pressure Pulse Oximetry Oxygen Delivery Room Air Intake/Output Intake/Output: Intake & Output 04/29/25 04/30/25 05/01/25 05/02/25 23:59 23:59 23:59 23:59 Intake Total 1120 725 850 Output Total 2600 1050 2075 2300 Balance -1480 -325 -1225 -2300 Meds/Results Medications: Active Medications Generic Name Dose Route Start Last Admin Trade Name Freq PRN Reason Stop Dose Admin Acetaminophen 650 mg 03/29/25 19:45 04/29/25 09:02 Acetaminophen 325 Mg Tablet PO 650 mg Q4H PRN Administration Mild Pain (1-5) Or Fever Hydrocodone Bitart/Acetaminophen 1 tab 05/01/25 07:09 05/02/25 08:55 Hydrocodone/Acetaminophen (*Crx) 5-325 Mg Tablet PO 1 tab Q6H PRN Administration Pain Rated 6 or Greater Albuterol 2.5 mg 03/29/25 21:50 04/30/25 21:11 Albuterol Sulfate Neb 2.5 Mg/3 Ml Inh INHALATION 2.5 mg Q4-6H PRN Administration Shortness Of Breath Albuterol 2 puff 04/03/25 17:11 04/28/25 09:15 Albuterol Sulfate (*Sp) Aerosol 1 Puff INHALATION 2 puff Q6HRT PRN Administration Shortness Of Breath Or Wheezing Alteplase, Recombinant 2 mg 04/16/25 09:02 04/16/25 10:24 Alteplase 2 Mg Vial (Cathflo) IV PUSH 2 mg ONCE PRN Administration Line Occlusion Atorvastatin Calcium 40 mg 03/30/25 09:00 05/02/25 08:56 Atorvastatin 40 Mg Tablet PO 40 mg DAILY DANIELE Administration Clonazepam 0.5 mg 04/29/25 07:05 05/02/25 00:52 Clonazepam (*Crx) 0.5 Mg Tablet PO 0.5 mg Q8H PRN Administration Anxiety Duloxetine HCl 60 mg 04/14/25 09:00 05/02/25 08:55 Duloxetine Hcl 30 Mg Capsule.Dr PO 60 mg DAILY DANIELE Administration Folic Acid 1 mg 03/30/25 09:00 05/02/25 08:56 Folic Acid 1 Mg Tablet PO 1 mg DAILY DANIELE Administration Heparin Sodium (Beef Lung) 50 units 03/30/25 09:00 05/02/25 08:57 Heparin Flush 50 Units/5 Ml Syringe IV PUSH 50 units QAM DANIELE Administration Heparin Sodium (Beef Lung) 50 units 03/29/25 23:50 05/02/25 05:15 Heparin Flush 50 Units/5 Ml Syringe IV PUSH 50 units PRN PRN Administration after intermittent infusion Heparin Sodium (Beef Lung) 50 units 03/29/25 23:50 05/01/25 04:56 Heparin Flush 50 Units/5 Ml Syringe IV PUSH 50 units PRN PRN Administration after blood draws Heparin Sodium (Porcine) 500 units 03/29/25 23:50 04/11/25 23:05 Heparin Sodium Lock Flush 500 Units/5 Ml Syringe IV PUSH 500 units PRN PRN Administration see comments below Meropenem 1 gm/ Sodium 100 mls @ 200 mls/hr 04/30/25 14:00 05/02/25 05:00 Chloride IVPB 200 mls/hr Q8H DANIELE Administration Azithromycin 500 mg/ Sodium 250 mls @ 250 mls/hr 04/30/25 14:00 05/01/25 15:11 Chloride IVPB 05/02/25 14:59 Infused Q24H DANIELE Infusion Loratadine 10 mg 03/30/25 09:00 05/02/25 08:56 Loratadine 10 Mg Tablet PO 10 mg QAM DANIELE Administration Menthol/Methyl Salicylate 1 applic 04/06/25 02:01 04/19/25 23:09 Menthol 10% / Methyl Salicylate 15% 57 Gm Tube TOPICAL 1 applic BID PRN Administration Muscle/Joint Pain Metoprolol Tartrate 25 mg 04/11/25 21:00 05/02/25 08:56 Metoprolol Tartrate 25 Mg Tablet PO 25 mg Q12HR DANIELE Administration Midodrine 10 mg 04/03/25 23:20 05/02/25 11:55 Midodrine Hcl 10 Mg Tablet PO Not Given TID DANIELE Mirtazapine 7.5 mg 04/28/25 21:00 05/01/25 20:01 Mirtazapine 7.5 Mg Tablet PO 7.5 mg HS DANIELE Administration Montelukast Sodium 10 mg 03/29/25 21:00 05/01/25 20:01 Montelukast Sodium 10 Mg Tablet PO 10 mg HS DANIELE Administration Ondansetron HCl 4 mg 04/20/25 10:08 04/25/25 13:41 Ondansetron Inj 4 Mg/2 Ml Vial IV PUSH 4 mg Q4H PRN Administration Nausea And Vomiting Pantoprazole Sodium 40 mg 04/07/25 21:00 05/02/25 08:55 Pantoprazole 40 Mg Tablet PO Not Given Q12HR DANIELE Polyethylene Glycol 17 gm 04/02/25 09:00 05/02/25 08:56 Polyethylene Glycol 3350 17 Gm Powd.Pack PO Not Given QAM DANIELE Fluticasone/Salmeterol 2 puff 03/29/25 20:00 05/02/25 07:05 Fluticasone/Salmeterol 45-21 Mcg Inhaler 1 Puff INHALATION 2 puff Q12HRT DANIELE Administration Sodium Chloride 10 ml 03/30/25 06:00 05/02/25 05:16 Central Line Flush IV PUSH 10 ml Q8HR DANIELE Administration Radiology Results: ITS Impressions Head/Neck CTA 03/29/25 08:51 IMPRESSION: CTA NECK: 1. No ICA stenosis or other acute arterial abnormality. 2. Lytic bony metastatic disease C2, C5. 3. Lytic bony metastatic disease right scapula with large associated soft tissue component. CTA HEAD: 1. No large vessel arterial occlusive disease or other acute arterial abnormality. Venous Doppler Study 03/31/25 17:18 IMPRESSION: 1: No lower extremity deep venous thrombosis. Shoulder X-Ray 04/11/25 15:25 Impression: No acute fracture or malalignment. Head CT 04/23/25 14:10 Impression: 1.No acute intracranial abnormality. Chest/Abdomen/Pelvis CT 04/23/25 15:33 IMPRESSION: 1. [Multiple pulmonary nodules are noted in the lungs bilaterally measuring up to 12 mm. There is a enlarged precarinal lymph node measuring 16 mm. This may represent metastases. Multiple liver masses are noted suggestive of malignancy. Brain MRI 04/27/25 07:37 IMPRESSION: 1. Stable mild nonspecific cerebral white matter disease and pontine disease, which likely represents chronic small vessel ischemic disease. Chest X-Ray 04/30/25 14:37 Impression: CHF. Superimposed bronchopneumonia. The findings appear slightly progressed compared to the previous study
[2025-05-02] MEDS: AZITHROMYCIN IV 500 MG in SODIUM CHLORIDE 0.9% IV 250 ML IVPB (13:36)
[2025-05-02] MEDS: MONTELUKAST SODIUM 10 MG TABLET PO (20:49)
[2025-05-02] MEDS: MIRTAZAPINE 7.5 MG TABLET PO (20:49)
[2025-05-02] MEDS: PANTOPRAZOLE 40 MG TABLET PO (20:49)
[2025-05-02] MEDS: ACETAMINOPHEN 325 MG TABLET 650 MG PO (20:53)
[2025-05-03] MEDS: CENTRAL LINE FLUSH 10 ML IV PUSH ×3 (00:24→17:33)
[2025-05-03] MEDS: MEROPENEM 1 GM in SODIUM CHLORIDE 0.9% IV 100 ML 200 ML IVPB ×2 (04:00→17:32)
[2025-05-03 06:00] VITALS: BP 155/97; PULSE 121; RESP 18; TEMP 36.6; O2SAT 96
[2025-05-03] MEDS: FLUTICASONE/SALMETEROL 45-21 MCG INHALER 1 PUFF 2 PUFF INHALATION (07:29)
[2025-05-03 09:42] VITALS: PULSE 149
[2025-05-03] MEDS: PANTOPRAZOLE 40 MG TABLET PO (09:42)
[2025-05-03] MEDS: MIDODRINE HCL 10 MG TABLET PO (09:42)
[2025-05-03] MEDS: METOPROLOL TARTRATE 25 MG TABLET PO (09:42)
[2025-05-03 09:55] VITALS: BP 140/94; PULSE 148; RESP 36; O2SAT 97
--- NOTE | 2025-05-03 12:03 | P.PNIM_ITS ---
Progress Note: A&P Assessment and Plan (1) Altered mental status: Code(s): R41.82 - Altered mental status, unspecified Status: Acute (2) Urinary tract infection: Code(s): N39.0 - Urinary tract infection, site not specified Status: Acute (3) Hypercalcemia of malignancy: Code(s): E83.52 - Hypercalcemia Status: Acute (4) Anemia: Code(s): D64.9 - Anemia, unspecified Status: Acute (5) Ovarian cancer: Code(s): C56.9 - Malignant neoplasm of unspecified ovary Status: Acute (6) Cardiomyopathy: Code(s): I42.9 - Cardiomyopathy, unspecified Status: Acute (7) Patent foramen ovale with right to left shunt: Code(s): Q21.12 - Patent foramen ovale Status: Acute (8) Hypokalemia: Code(s): E87.6 - Hypokalemia Status: Acute (9) Pneumonia: Code(s): J18.9 - Pneumonia, unspecified organism Status: Acute (10) Leukocytosis: Code(s): D72.829 - Elevated white blood cell count, unspecified Status: Acute (11) Vaginitis: Code(s): N76.0 - Acute vaginitis Status: Acute Plan Acute respiratory failure: Patient tachycardic and tachypneic. May have aspirated or worsening PNA. Discussed with daughter by phone. Severity of the patient's condition was discussed. Talked about the patient's code status and the daughter was agreeable to change the patient to a DNR. Patient's code status was changed to DNR. The daughter wanted to hold off on morphine at this time but requested the patient receive Jackson. It was explained that patient may be having trouble swallowing but daughter wished this to be given to see if this would improve her symptoms. Daughter was informed that she should come to the hospital since the patient's condition could deteriorate further. Destructed RN to give Jackson crushed with applesauce the patient could tolerate. I was called later by the nurse after family arrived. Family is requesting patient received morphine now which was ordered. Altered mental status/acute encephalopathy: CT with age indeterminate focus of left frontal subcortical ischemia MRI brain unremarkable Echocardiogram with EF of 40-45% with regional wall motion abnormality, PFO Mental status was improving but has worsened since. Repeat brain MRI without contrast 04/27 again showing no acute findings. Neurology following Continues to be confused. Psych was consulted and medications adjusted. Still with poor oral intake. UTI: UCx Positive (03/28) for EColi and she completed a course of ceftriaxone However UA positive for UTI again and ceftriaxone restarted 04/11 UCx grew Corine and Enterococcus - ampicillin resistant so treated with vancomycin Repeat urine culture 04/19 and 04/29 negative. Vaginitis: Received a dose of fluconazole 04/13/2025 PNA: MRSA nasal screen was negative ID consulted and appreciate their input BCx negative from 04/11, 04/19 Treated with Zosyn and completed a course on 04/27 BCx 04/29 NGTD Abx resumed 04/30 Leukocytosis: WBC persistently elevated CDiff negative Repeat Cx off abx drawn and are negative Could be related to underlying metastatic ovarian cancer Hypercalcemia: Likely secondary to malignancy Received zoledronic acid, calcitonin, IV fluids Hypercalcemia has resolved Anemia: Status post 2 units of PRBC on 04/04 Hgb has been stable until Hgb 6.7 requiring one unit RPBCs on 04/25. No signs of bleeding. [place] related to metastatic ovarian cancer Hgb has been stable. History of metastatic ovarian cancer: Patient follows up with Oncology at [facility] MRI brain with contrast showing no acute findings 03/30 CTA head/neck showing C2 and C5 lytic lesions and right scapula MRI brain without contrast 04/[address] Ch/A/P showing multiple liver and lung masses as well as large precarinal LN Oncology consulted. CA 125 elevated. Family decided on hospice care Cardiomyopathy/PFO: Echo showing EF 40-45% with regional wall motion abnormality and PFO with R-->L shunt Cardiology consulted. LE venous doppler negative for DVT so unlikely paradoxical CVA. Metoprolol tartrate started. Maxide and verapamil stopped and losartan added Due to HoTN and anemia, Plavix stopped and medication adjusted. History of hypertension: Continue with metoprolol Verapamil has been stopped Lice: Lice in hair that was treated with permethrin Code status: Full DVT prophylaxis: SCDs Disposition: Family has decided on hospice Subjective Date/time seen: 05/03/25 12:03 Interval history: 59yo female with HTN and metastatic ovarian CA here for AMS. Alert, confused. Called to the room when patient found to have tachycardic and tachypnea Exam Narrative: AF 97.9 140/94 148 36 97% ra Gen - tachypneic. HEENT - dry mucous membranes Chest - coarse BS. tachypneic and retractions. Right upper chest port accessed CV - tachycardic Abd - soft, ND. +BS - Nieves secured draining clear yellow urine Ext - trace pedal edema Psych - awake, confused Skin - Warm and dry. Objective Data Vital Signs Vital Signs: Vital Signs - 24 hr 05/02/25 13:37 05/02/25 16:00 05/02/25 20:50 Temperature 97.9 F Pulse Rate 92 100 112 H Respiratory Rate 19 Blood Pressure 135/66 Pulse Oximetry 95 05/02/25 22:00 05/03/25 06:00 05/03/25 09:42 Temperature 98.2 F 97.9 F Pulse Rate 114 H 121 H 149 H Respiratory Rate 18 18 Blood Pressure 148/91 H 155/97 H Pulse Oximetry 95 96 05/03/25 09:55 Temperature Pulse Rate 148 H Respiratory Rate 36 H Blood Pressure 140/94 H Pulse Oximetry 97 Intake/Output Intake/Output: Intake & Output 04/30/25 05/01/25 05/02/25 05/03/25 23:59 23:59 23:59 23:59 Intake Total 725 850 550 0 Output Total 1050 2075 3300 1640 [facility] -325 -1225 -2750 -1640 Meds/Results Medications: Active Medications Generic Name Dose Route Start Last Admin Trade Name Freq PRN Reason Stop Dose Admin Acetaminophen 650 mg 03/29/25 19:45 05/02/25 20:53 Acetaminophen 325 Mg Tablet PO 650 mg Q4H PRN Administration Mild Pain (1-5) Or Fever Hydrocodone Bitart/Acetaminophen 1 tab 05/01/25 07:09 05/02/25 23:41 Hydrocodone/Acetaminophen (*Crx) 5-325 Mg Tablet PO 1 tab Q6H PRN Administration Pain Rated 6 or Greater Albuterol 2.5 mg 03/29/25 21:50 04/30/25 21:11 Albuterol Sulfate Neb 2.5 Mg/3 Ml Inh INHALATION 2.5 mg Q4-6H PRN Administration Shortness Of Breath Albuterol 2 puff 04/03/25 17:11 04/28/25 09:15 Albuterol Sulfate (*Sp) Aerosol 1 Puff INHALATION 2 puff Q6HRT PRN Administration Shortness Of Breath Or Wheezing Alteplase, Recombinant 2 mg 04/16/25 09:02 04/16/25 10:24 Alteplase 2 Mg Vial (Cathflo) IV PUSH 2 mg ONCE PRN Administration Line Occlusion Clonazepam 0.5 mg 04/29/25 07:05 05/02/25 20:53 Clonazepam (*Crx) 0.5 Mg Tablet PO 0.5 mg Q8H PRN Administration Anxiety Duloxetine HCl 60 mg 04/14/25 09:00 05/02/25 08:55 Duloxetine Hcl 30 Mg Capsule.Dr PO 60 mg DAILY DANIELE Administration Heparin Sodium (Beef Lung) 50 units 03/30/25 09:00 05/02/25 08:57 Heparin Flush 50 Units/5 Ml Syringe IV PUSH 50 units QAM DANIELE Administration Heparin Sodium (Beef Lung) 50 units 03/29/25 23:50 05/03/25 04:00 Heparin Flush 50 Units/5 Ml Syringe IV PUSH 50 units PRN PRN Administration after intermittent infusion Heparin Sodium (Beef Lung) 50 units 03/29/25 23:50 05/01/25 04:56 Heparin Flush 50 Units/5 Ml Syringe IV PUSH 50 units PRN PRN Administration after blood draws Heparin Sodium (Porcine) 500 units 03/29/25 23:50 04/11/25 23:05 Heparin Sodium Lock Flush 500 Units/5 Ml Syringe IV PUSH 500 units PRN PRN Administration see comments below Meropenem 1 gm/ Sodium 100 mls @ 200 mls/hr 04/30/25 14:00 05/03/25 04:00 Chloride IVPB 200 mls/hr Q8H DANIELE Administration Menthol/Methyl Salicylate 1 applic 04/06/25 02:01 04/19/25 23:09 Menthol 10% / Methyl Salicylate 15% 57 Gm Tube TOPICAL 1 applic BID PRN Administration Muscle/Joint Pain Metoprolol Tartrate 25 mg 04/11/25 21:00 05/03/25 09:42 Metoprolol Tartrate 25 Mg Tablet PO 25 mg Q12HR DANIELE Administration Midodrine 5 mg 05/03/25 13:00 Midodrine Hcl 2.5 Mg Tablet PO TID DANIELE Mirtazapine 7.5 mg 04/28/25 21:00 05/02/25 20:49 Mirtazapine 7.5 Mg Tablet PO 7.5 mg HS DANIELE Administration Miscellaneous Information 1 each 05/03/25 00:01 Midodrine Needs To Be Renewed Or It Will Automatically Discontinue. XX 06/02/25 00:00 CLARIFY DANIELE Morphine Sulfate 2 mg 05/03/25 12:00 Morphine Sulfate (*Crx) 4 Mg/Ml Inj IV PUSH Q2H PRN Pain Rated 7-10 Ondansetron HCl 4 mg 04/20/25 10:08 04/25/25 13:41 Ondansetron Inj 4 Mg/2 Ml Vial IV PUSH 4 mg Q4H PRN Administration Nausea And Vomiting Fluticasone/Salmeterol 2 puff 03/29/25 20:00 05/03/25 07:29 Fluticasone/Salmeterol 45-21 Mcg Inhaler 1 Puff INHALATION 2 puff Q12HRT DANIELE Administration Sodium Chloride 10 ml 03/30/25 06:00 05/03/25 04:00 Central Line Flush IV PUSH 10 ml Q8HR DANIELE Administration Radiology Results: ITS Impressions Head/Neck CTA 03/29/25 08:51 IMPRESSION: CTA NECK: 1. No ICA stenosis or other acute arterial abnormality. 2. Lytic bony metastatic disease C2, C5. 3. Lytic bony metastatic disease right scapula with large associated soft tissue component. CTA HEAD: 1. No large vessel arterial occlusive disease or other acute arterial abnormality. Venous Doppler Study 03/31/25 17:18 IMPRESSION: 1: No lower extremity deep venous thrombosis. Shoulder X-Ray 04/11/25 15:25 Impression: No acute fracture or malalignment. Head CT 04/23/25 14:10 Impression: 1.No acute intracranial abnormality. Chest/Abdomen/Pelvis CT 04/23/25 15:33 IMPRESSION: 1. [Multiple pulmonary nodules are noted in the lungs bilaterally measuring up to 12 mm. There is a enlarged precarinal lymph node measuring 16 mm. This may represent metastases. Multiple liver masses are noted suggestive of malignancy. Brain MRI 04/27/25 07:37 IMPRESSION: 1. Stable mild nonspecific cerebral white matter disease and pontine disease, which likely represents chronic small vessel ischemic disease. Chest X-Ray 04/30/25 14:37 Impression: CHF. Superimposed bronchopneumonia. The findings appear slightly progressed compared to the previous study
[2025-05-03] MEDS: MORPHINE SULFATE INJ (*CRX) 10 MG/ML AMP 2 MG IV PUSH (12:50)
--- NOTE | 2025-05-03 13:44 | PCOTNOTE ---
Per RN patient is not apropriate for therapy and my being going comfort. Will continue to follow.
[2025-05-03 14:00] VITALS: BP 120/79; PULSE 135; RESP 22; TEMP 36.1; O2SAT 96
--- NOTE | 2025-05-03 16:08 | PM.DS ---
DS: Admitting Diagnosis Discharge Date 05/03/25 Admitting Diagnosis Altered mental status DS: Discharge Diagnosis Discharge Diagnosis (1) Altered mental status: Code(s): R41.82 - Altered mental status, unspecified Status: Acute (2) Urinary tract infection: Code(s): N39.0 - Urinary tract infection, site not specified Status: Acute (3) Hypercalcemia of malignancy: Code(s): E83.52 - Hypercalcemia Status: Acute (4) Anemia: Code(s): D64.9 - Anemia, unspecified Status: Acute (5) Ovarian cancer: Code(s): C56.9 - Malignant neoplasm of unspecified ovary Status: Acute (6) Cardiomyopathy: Code(s): I42.9 - Cardiomyopathy, unspecified Status: Acute (7) Patent foramen ovale with right to left shunt: Code(s): Q21.12 - Patent foramen ovale Status: Acute (8) Hypokalemia: Code(s): E87.6 - Hypokalemia Status: Acute (9) Pneumonia: Code(s): J18.9 - Pneumonia, unspecified organism Status: Acute (10) Leukocytosis: Code(s): D72.829 - Elevated white blood cell count, unspecified Status: Acute (11) Vaginitis: Code(s): N76.0 - Acute vaginitis Status: Acute (12) Hospice care: Code(s): Z51.5 - Encounter for palliative care Status: Acute DS: Summary Hospital Course Reason for hospitalization: 59yo female with HTN and metastatic ovarian CA here for AMS. Please see H&P for details. Hospital Course: Patient presented with altered mental status. CT with age indeterminate focus of left frontal subcortical ischemia. CTA head/neck showing C2 and C5 lytic lesions and right scapula. MRI brain unremarkable. She had hypercalcemia likely secondary to malignancy. She received zoledronic acid, calcitonin, IV fluids. Hypercalcemia resolved. Echo showing EF 40-45% with regional wall motion abnormality and PFO with R-->L shunt. Cardiology consulted. LE venous doppler negative for DVT. Metoprolol tartrate started. Maxide and verapamil stopped and losartan added. Due to HoTN and anemia, Plavix stopped and medication adjusted. UCx positive (03/28) for EColi and she completed a course of ceftriaxone. However UA positive for UTI again with Enterococcus - ampicillin resistant so treated with vancomycin. Repeat urine culture 04/19 and 04/29 negative. She was also treated for PNA. MRSA nasal screen was negative. ID consulted. BCx negative from 04/11, 04/19. Treated with Zosyn and completed a course on 04/27. Despite antibiotics, WBC remained elevated. CDiff negative. Repeat Cx off abx drawn and were negative. Could be related to underlying metastatic ovarian cancer but antibiotics were resumed. CT Ch/A/P showing multiple liver and lung masses as well as large precarinal LN. Oncology consulted. CA 125 was elevated. Patient remained confused. Family decided on hospice care at home. Arrangements were made and patient was discharged home on hospice on 05/03/25. Multiple conversations with POA and all questions answered. All questions answered. Status at Discharge Cognitive/behavioral status at discharge: terminal Time Spent with Patient Time attestation: Total time spent providing and/or coordinating discharge services: 45 minutes Time spent: Greater than 30 minutes Exam Narrative: AF 97.9 140/94 148 36 97% ra Gen - tachypneic. HEENT - dry mucous membranes Chest - coarse BS. tachypneic and retractions. Right upper chest port accessed CV - tachycardic Abd - soft, ND. +BS - Nieves secured draining clear yellow urine Ext - trace pedal edema Psych - awake, confused Skin - Warm and dry. DS: Data Data Completed and Pending Labs on day of discharge: Preliminary micro results at discharge 04/29/25 10:26 Blood Culture - Preliminary Blood 04/29/25 10:33 Blood Culture - Preliminary Blood Discharge Plan Discharge Attending physician on discharge: Александр Murray Consulting providers: Rajani Edmond; Zuleyka Nolan; Mariel Flores; Rashmi Sampson; Augusto Heredia; Can Zamora Discharging Clinician: Александр Murray Anticipated Discharge Date/Time: 05/03/25 16:18 Patient Disposition: Hospice - Home Activity: as tolerated Diet: as tolerated Discharge Instructions: Hospice to follow at home Patient Instructions: Hyponatremia (DC), Hypercalcemia (DC), Stroke (DC) Patient Language: Cymro Stand Alone Forms: General Discharge Information Discharge Medications: New morphine concentrate 20 mg/mL syringe 5 mg sublingual Q2H PRN (Reason: dyspnea) Qty: 20 0RF lorazepam 0.5 mg tablet 0.5 mg sublingual Q4H PRN (Reason: anxiety) Qty: 30 0RF hyoscyamine sulfate [Levsin/SL] 0.125 mg tablet, sublingual 0.125 mg sublingual .q4hr PRN (Reason: secretions) Qty: 30 0RF Discontinued atorvastatin 40 mg tablet 40 mg PO DAILY triamterene-hydrochlorothiazid 37.5-25 mg capsule 1 cap PO DAILY verapamil 180 mg capsule,ext rel. pellets 24 hr 180 mg PO DAILY clonazepam 1 mg tablet 1 mg PO TID cholecalciferol (vitamin D3) 125 mcg (5,000 unit) capsule 125 mcg PO DAILY albuterol sulfate 90 mcg/actuation HFA aerosol inhaler 2 inh inhalation Q6H PRN (Reason: shortness of breath or wheezing) Qty: 1 3RF folic acid 1 mg tablet 1 mg PO DAILY duloxetine 30 mg capsule,delayed release(DR/EC) 30 mg PO DAILY loratadine 10 mg capsule 10 mg PO Q24H senna 8.6 mg capsule 17.2 mg PO BID ondansetron HCl 8 mg tablet 8 mg PO Q12H PRN (Reason: nausea and vomiting) montelukast 10 mg tablet 10 mg PO QPM (DME) [facility] See Rx Instructions .ROUTE .MEDSUPPLY Qty: 1 0RF Rx Instructions: As directed budesonide-formoterol [Symbicort] 80-4.5 mcg/actuation HFA aerosol inhaler 2 puff inhalation Q12H Qty: 10.2 5RF Rx Instructions: rinse and spit albuterol sulfate 2.5 mg /3 mL (0.083 %) solution for nebulization See Rx Instructions .ROUTE .COMPLEX Qty: 180 11RF Dose Instruction: INHALE ONE VIAL IN NEBULIZER EVERY 4-6 HURS NEEDED FOR SHORTNESS OF BREATH OR WHEEZING Rx Instructions: INHALE ONE VIAL IN NEBULIZER EVERY 4-6 HURS NEEDED FOR SHORTNESS OF BREATH OR WHEEZING Date of admission: 03/30/25 15:29 Primary Care Provider: BlairElyse Admitting Provider: Olimpia Velasquez Attending physician on admission: Olimpia Velasquez Condition: Stable Hospitalist MIPS Heart Failure (Exclusion) Patient has history of Heart Transplant or Left Ventricular Assistive Device?: No IF YES, STOP HERE Heart Failure (Qualifier) Patient has current or prior documentation of LVEF less than or equal to 40%, or mod/servere depressed LVSF?: Yes IF NO, STOP HERE If Yes, Heart Failure (Qualifier) Patient was prescribed or already taking an Angiotensin-Converting Enzyme (KHAI) Inhibitor, or Antiotensin Receptor Saritha (ARB): No Patient was prescribed or already taking bisoprolol, carvedilol, or sustained release metoprolol succinate: No If Medications not prescribed/taking Reason patient not prescribed/taking KHAI or ARB: Patient reasons: pt declined or other pt reason Reason patient not prescribed/taking bisoprolol, carvedilol, or sustained realease metoprolol succinate: Patient reasons: pt declined or other pt reason
[2025-05-03] MEDS: MORPHINE SULFATE (*CRX) 4 MG/ML INJ 2 MG IV PUSH (17:31)
[2025-05-03] MEDS: HEPARIN SODIUM LOCK FLUSH 500 UNITS/5 ML SYRINGE IV PUSH (18:29)
== END 2025-05-03 18:50 | disposition hospice, home (50) | DRG 70 ==
LOC: ANHED 03-29 20:12 → ANHIMU 03-29 20:43 → ANH2MED 05-03 16:19 → ANHIMU 05-04 11:03
PROVIDERS: Family Medicine; Internal Medicine; Internal Medicine Hematology & Oncology; Internal Medicine Infectious Disease; Nurse Practitioner; Admitting Provider General Practice; Emergency Provider Emergency Medicine; PCP Nurse Practitioner; Visit Provider Internal Medicine
DX: G93.41 Metabolic encephalopathy (principal); J18.9 Pneumonia, unspecified organism; J96.90 Respiratory failure, unspecified, unspecified whether with hypoxia or hypercapnia; E87.1 Hypo-osmolality and hyponatremia; N39.0 Urinary tract infection, site not specified; C56.9 Malignant neoplasm of unspecified ovary; C79.51 Secondary malignant neoplasm of bone; C78.7 Secondary malignant neoplasm of liver and intrahepatic bile duct; C78.02 Secondary malignant neoplasm of left lung; C78.01 Secondary malignant neoplasm of right lung; I42.9 Cardiomyopathy, unspecified; K52.1 Toxic gastroenteritis and colitis; I67.82 Cerebral ischemia; Z16.11 Resistance to penicillins; Q21.12 Patent foramen ovale; E83.52 Hypercalcemia; I50.9 Heart failure, unspecified; I10 Essential (primary) hypertension; I95.9 Hypotension, unspecified; J44.9 Chronic obstructive pulmonary disease, unspecified; D64.9 Anemia, unspecified; E87.6 Hypokalemia; N76.0 Acute vaginitis; R00.0 Tachycardia, unspecified; R29.703 NIHSS score 3; R47.81 Slurred speech; G62.9 Polyneuropathy, unspecified; M54.2 Cervicalgia; M25.511 Pain in right shoulder; F41.9 Anxiety disorder, unspecified; B85.2 Pediculosis, unspecified; Z51.5 Encounter for palliative care; Z87.891 Personal history of nicotine dependence; Z79.02 Long term (current) use of antithrombotics/antiplatelets
CPT/HCPCS: 36415; 36430; 70450; 70496; 70498; 70551; 70553; 71045; 71046; 71250; 73030; 74176; 80048; 80053; 80069; 80202; 81001; 82140; 82306; 82533; 82550; 82565; 82570; 82607; 82728; 82746; 82948; 83540; 83550; 83605; 83735; 83935; 84100; 84132; 84145; 84295; 84300; 84443; 84540; 85014; 85018; 85025; 85027; 85055; 85610; 85730; 86304; 86850; 86900; 86901; 86923; 87040; 87086; 87186; 87493; 87641; 92610; 93005; 93970; 94640; 96361; 96365; 96366; 96367; 96372; 96375; 96376; 97110; 97116; 97162; 97164; 97166; 97168; 97530; 97535; 99285; A9270; A9577; C8929; G0378; J0456; J0616; J0630; J0692; J0696; J1642; J1644; J1938; J2060; J2185; J2270; J2405; J2470; J2543; J2597; J2997; J3373; J3475; J3480; J3489; J7030; J7040; J7050; J7070; P9016; P9047; Q9957; Q9967